=== PATIENT | male | born 1960 | race Caucasian/White ===

== ENCOUNTER 2023-01-12 03:07 | Emergency (ER) | payer OTHER ==
--- OUTSIDE RECORDS SUMMARY | 2023-01-12 03:20 | XMS REPORT | Continuity of Care Document ---
:1960 Author Organization [facility] t Address [address] [facility] [address] [place] [id number] Care Team Providers Name Role Phone Osmany Alfredo MD Primary Care Physician Osmany Alfredo Attending Clinician Unavailable CHERI SIMMS Attending Clinician Unavailable CHERI SIMMS Attending Clinician Unavailable [facility]ending Clinician Unavailable Osmany Alfredo MD Attending Clinician OSMANY ALFREDO Attending Clinician Unavailable Janie Schofield Attending Clinician Doctor Unassigned, [place] Attending Clinician Unavailable Nurse, Adc Surgery Gu Attending Clinician Unavailable Cheko Humphries MD Attending Clinician CHEKO HUMPHRIES Attending Clinician Unavailable PENNY SUE Attending Clinician Unavailable Penny Sue DO Attending Clinician Lab, Ang - Db Attending Clinician Unavailable DULCE FONTANA Attending Clinician Unavailable Dulce Fontana MD Attending Clinician Jenny Mijares Attending Clinician SERVANDO LANDRY Attending Clinician Unavailable Servando Landry MD Attending Clinician DANNY BROCK Attending Clinician Unavailable Danny Brock MD Attending Clinician Joe BEAN Attending Clinician Unavailable Joe Cai Attending Clinician JANIE PADRON Attending Clinician Unavailable Rm, Adc Surg Spec Procedure Attending Clinician Unavailable 2, Adc Lab Attending Clinician Unavailable MIN GALICIA Attending Clinician Unavailable Min Galicia MD Attending Clinician ARISTIDES LUX Attending Clinician Unavailable Maci CYBER INCIDENT ANALYST, Airstides B Attending Clinician SUKI NOYOLA Attending Clinician Unavailable Anearjun KEYES Suki Attending Clinician LEIF MENDENHALL Attending Clinician Unavailable Omid KEYES, Leif Attending Clinician Vianney Andersen MD Attending Clinician Zahida Naik MD Attending Clinician ZAHIDA NAIK Attending Clinician Unavailable VIANNEY ANDERSEN Attending Clinician Unavailable JENNY HORTON Attending Clinician Unavailable Hieu Patton MD Attending Clinician Caroline De La Paz Attending Clinician HIEU PATTON Attending Clinician Unavailable Pob, Adc Lab Main Attending Clinician Unavailable GLORY TIRADO Attending Clinician Unavailable CLEMENT RIDER Attending Clinician Unavailable SUE JERNIGAN Attending Clinician Unavailable CAROLINE BENAVIDEZ Attending Clinician Unavailable PENNY SUE Admitting Clinician Unavailable MIN GALICIA Admitting Clinician Unavailable ZAHIDA NAIK Admitting Clinician Unavailable Payers Payer Name Policy Type Policy Number Effective Date Expiration Date S ource Problems Condition Condition Condition Status Onset Resolution Last Treating Co mments Source Name Details Category Date Date Treatment Clinician Date Urinary Urinary Disease Active Univers obstructio obstructio 4-26 it y of n n 00:00: [place] 00 [facility] Branch Vitamin D Vitamin D Disease Active Uni vers deficiency deficiency 3-10 it y of 00:00: [place] 00 Medical Branch Type 2 Type 2 Disease Active Univers diabetes diabetes 3-02 ity of mellitus mellitus 00:00: [place] with with 00 Medical hyperglyce hyperglyce Br anch hank, with hank, with long-term long-term current current use of use of insulin insulin Essential Essential Disease Active Uni vers hypertensi hypertensi 07-16 it y of on on 00:00: [place] 00 Medical Branch Mixed Mixed Disease Active Univers hyperlipid hyperlipid 07-16 it y of emia emia 00:00: [place] Medical Branch 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, tophus, 00:00: [place] unspecifie unspecifie 00 Me dical d cause, d cause, Branch unspecifie unspecifie d site d site Morbid Morbid Disease Active Univers obesity obesity 07-16 ity of with BMI with BMI 00:00: [place] of of 00 Medical 40.0-44.9, 40.0-44.9, Br anch adult adult Allergies, Adverse Reactions, Alerts Allergy Allergy Status Severity Reaction(s) Onset Inactive Treating Comm ents Source Name Type Date Date Clinician NO KNOWN Drug Active Univers ALLERGIE Class ity of S [facility] Social History Social Habit Start Date Stop Date Quantity Comments Source History of tobacco Passive smoker Un iversity of use [facility] Gender identity Universit y of [facility] Sexual orientation Univer sity of [facility] Alcohol intake 2022-11-26 2022-11-26 Ex-drinker University of 00:00:00 00:00:00 (finding) [facility] History of Social 2022-11-18 2022-11-18 Univers ity of function 00:00:00 00:00:00 [facility] Exposure to 2022-09-25 2022-10-05 Not sure University of SARS-CoV-2 (event) 00:00:00 13:09:00 [facility] Tobacco use and 2022-01-14 2022-01-14 Smokeless Universit y of exposure 00:00:00 00:00:00 tobacco non-user [place] Me dical Branch History SDOH 2020-07-16 2020-07-16 99 University o f Alcohol Frequency 00:00:00 00:00:00 [place] M edical Branch History SDOH 2020-07-16 2020-07-16 99 University o f Alcohol Std Drinks 00:00:00 00:00:00 [place] [facility] History SDOH 2020-07-16 2020-07-16 99 University o f Alcohol Binge 00:00:00 00:00:00 [facility] Alcohol Comment 2020-07-16 2020-07-16 over 30 years Univer sity of 00:00:00 00:00:00 ago [facility] Sex Ass[birth year] At [birth year] Universit y of 00:00:00 00:00:00 [facility] Smoking Status Start Date Stop Date Source Never smoked tobacco [facility] Medications Ordered Filled Start Stop Current Ordering Indication Dosage Frequency Signature Comments Components Source Medication Medication Date Date Medication? Clinician (SIG) Name Name LARA 1 Yes [id number] DIAL AND Univers mg/dose (01-11 INJECT ity of mg/3 mL) 00:00: UNDER THE [place] PnIj 00 SKIN 1 MG Medical WEEKLY Branch lisinopriL Yes [id number] 40mg Take 1 U nivers 40 mg 7-13 tablet by ity of tablet 00:00: mouth in [place] 00 the Medical morning. Branch ergocalcife Yes [id number] TAKE ONE Univers rol, 7-13 CAPSULE BY ity of vitamin d2, 00:00: MOUTH [place] 1,250 mcg 00 WEEKLY Medical (50,000 Branch unit) capsule lisinopriL 2022-0 Yes [id number] 40mg Take 1 U nivers 40 mg 7-13 tablet by ity of tablet 00:00: mouth in [place] 00 the Medical morning. Branch ergocalcife Yes [id number] TAKE ONE Univers rol, 7-13 CAPSULE BY ity of vitamin d2, 00:00: MOUTH [place] 1,250 mcg 00 WEEKLY Medical (50,000 Branch unit) capsule lisinopriL 2022-0 Yes [id number] 40mg Take 1 U nivers 40 mg 7-13 tablet by ity of tablet 00:00: mouth in [place] 00 the Medical morning. Branch ergocalcife Yes [id number] TAKE ONE Univers rol, 7-13 CAPSULE BY ity of vitamin d2, 00:00: MOUTH [place] 1,250 mcg 00 WEEKLY Medical (50,000 Branch unit) capsule lisinopriL 2022-0 Yes [id number] 40mg Take 1 U nivers 40 mg 7-13 tablet by ity of tablet 00:00: mouth in [place] 00 the Medical morning. Branch ergocalcife 0 Yes [id number] TAKE ONE Univers rol, 7-13 CAPSULE BY ity of vitamin d2, 00:00: MOUTH [place] 1,250 mcg 00 WEEKLY Medical (50,000 Branch unit) capsule lisinopriL 2022-0 Yes [id number] 40mg Take 1 U nivers 40 mg 7-13 tablet by ity of tablet 00:00: mouth in [place] 00 the Medical morning. Branch ergocalcife 2022-0 Yes [id number] TAKE ONE Univers rol, 7-13 CAPSULE BY ity of vitamin d2, 00:00: MOUTH [place] 1,250 mcg 00 WEEKLY Medical (50,000 Branch unit) capsule fenofibrate 2022-0 Yes [id number] 145mg Take 1 Univers 145 mg 7-05 tablet by ity of tablet 00:00: mouth in [place] 00 the Medical morning. Branch semaglutide 2022-0 Yes [id number] 1mg inject 1 Univers (OZEMPIC) 1 7-05 mg under ity of mg/dose (4 00:00: the skin [place] mg/3 mL) 00 weekly. Medical PnIj Branch fenofibrate 2022-0 Yes [id number] 145mg Take 1 Univers 145 mg 7-05 tablet by ity of tablet 00:00: mouth in [place] 00 the Medical morning. Branch semaglutide 2022-0 Yes [id number] 1mg inject 1 Univers (OZEMPIC) 1 7-05 mg under ity of mg/dose (4 00:00: the skin [place] mg/3 mL) 00 weekly. Medical PnIj Branch fenofibrate 2022-0 Yes [id number] 145mg Take 1 Univers 145 mg 7-05 tablet by ity of tablet 00:00: mouth in [place] 00 the Medical morning. Branch semaglutide 2022-0 Yes [id number] 1mg inject 1 Univers (OZEMPIC) 1 7-05 mg under ity of mg/dose (4 00:00: the skin [place] mg/3 mL) 00 weekly. Medical PnIj Branch fenofibrate 2022-0 Yes [id number] 145mg Take 1 Univers 145 mg 7-05 tablet by ity of tablet 00:00: mouth in [place] 00 the Medical morning. Branch semaglutide 3-0 Yes [id number] 1mg inject 1 Univers (OZEMPIC) 1 7-05 mg under ity of mg/dose (4 00:00: the skin [place] mg/3 mL) 00 weekly. Medical PnIj Branch fenofibrate 2022-0 Yes [id number] 145mg Take 1 Univers 145 mg 7-05 tablet by ity of tablet 00:00: mouth in [place] 00 the Medical morning. [place] semaglutide 2022-0 Yes [id number] 1mg inject 1 Univers (OZEMPIC) 1 7-05 mg under ity of mg/dose (4 00:00: the skin [place] mg/3 mL) 00 weekly. [facility] fenofibrate 2022-0 Yes [id number] 145mg Take 1 Univers 145 mg 7-05 tablet by ity of tablet 00:00: mouth in [place] 00 the Medical morning. [place] semaglutide 2022-0 Yes [id number] 1mg inject 1 Univers (OZEMPIC) 1 7-05 mg under ity of mg/dose (4 00:00: the skin [place] mg/3 mL) 00 weekly. [facility] fenofibrate 2022-0 Yes [id number] 145mg Take 1 Univers 145 mg 7-05 tablet by ity of tablet 00:00: mouth in [place] 00 the Medical morning. [place] semaglutide 0 2022- No [id number] 1mg inject 1 Univers (OZEMPIC) 1 7-05 08-28 mg under ity of mg/dose (4 00:00: 00:00 [place] mg/3 mL) 00 :00 weekly. [facility] ergocalcife 2022-0 Yes [id number] TAKE ONE Univers rol, 6-29 CAPSULE BY ity of vitamin d2, 00:00: MOUTH [place] 1,250 mcg 00 WEEKLY Medical (50,000 Branch unit) capsule ergocalcife 2022-0 2022- No [id number] TAKE ONE Univers rol, 6- 07-13 CAPSULE BY ity of vitamin d2, 00:00: 00:00 [place]TH [place] 1,250 mcg 00 :00 WEEKLY Medical (50,000 Branch unit) capsule ergocalcife 2022-0 2022- No [id number] TAKE ONE Univers rol, 6-29 07-13 CAPSULE BY ity of vitamin d2, 00:00: 00:00 [place]TH [place] 1,250 mcg 00 :00 WEEKLY Medical (50,000 Branch unit) capsule ergocalcife 2022-0 2022- No [id number] TAKE ONE Univers rol, 6-29 07-13 CAPSULE BY ity of vitamin d2, 00:00: 00:00 [place]TH [place] 1,250 mcg 00 :00 WEEKLY Medical (50,000 Branch unit) capsule ergocalcife 2022- No [id number] TAKE ONE [facility], 11-12 CAPSULE BY ity of vitamin d2, 00:00: 00:00 [place] 1,250 mcg 00 :00 WEEKLY Medical (50,000 Branch unit) capsule Insulin Yes [id number] 45U inject 45 U nivers Glargine 6-12 Units ity of (BASAGLAR 00:00: under the [place] KWIKPEN 00 skin in Medical U-100 the Branch INSULIN) morning. 100 unit/mL (3 mL) injection Insulin Yes [id number] 45U inject 45 U nivers Glargine 6-12 Units ity of (BASAGLAR 00:00: under the [place] KWIKPEN 00 skin in Medical U-100 the Branch INSULIN) morning. 100 unit/mL (3 mL) injection Insulin Yes [id number] 45U inject 45 U nivers Glargine 6-12 Units ity of (BASAGLAR 00:00: under the [place] KWIKPEN 00 skin in Medical U-100 the Branch INSULIN) morning. 100 unit/mL (3 mL) injection Insulin Yes [id number] 45U inject 45 U nivers Glargine 6-12 Units ity of (BASAGLAR 00:00: under the [place] KWIKPEN 00 skin in Medical U-100 the Branch INSULIN) morning. 100 unit/mL (3 mL) injection Insulin Yes [id number] 45U inject 45 U nivers Glargine 6-12 Units ity of (BASAGLAR 00:00: under the [place]WIKP[place] 00 skin in Medical U-100 the Branch INSULIN) morning. 100 unit/mL (3 mL) injection Insulin Yes [id number] 45U inject 45 U nivers Glargine 6-12 Units ity of (BASAGLAR 00:00: under the [place] KWIKPEN 00 skin in Medical U-100 the Branch INSULIN) morning. 100 unit/mL (3 mL) injection Insulin Yes [id number] 45U inject 45 U nivers Glargine 6-12 Units ity of (BASAGLAR 00:00: under the [place] KWIKPEN 00 skin in Medical U-100 the Branch INSULIN) morning. 100 unit/mL (3 mL) injection Insulin Yes [id number] 45U inject 45 U nivers Glargine 6-12 Units ity of (BASAGLAR 00:00: under the [place] KWIKPEN 00 skin in Medical U-100 the Branch INSULIN) morning. 100 unit/mL (3 mL) injection Insulin Yes [id number] 45U inject 45 U nivers Glargine 6-12 Units ity of (BASAGLAR 00:00: under the [place] KWIKPEN 00 skin in Medical U-100 the Branch INSULIN) morning. 100 unit/mL (3 mL) injection Insulin Yes [id number] 45U inject 45 U nivers Glargine 6-12 Units ity of (BASAGLAR 00:00: under the [place] KWIKPEN 00 skin in Medical U-100 the Branch INSULIN) morning. 100 unit/mL (3 mL) injection Insulin Yes [id number] 45U inject 45 U nivers Glargine 6-07 Units ity of (BASAGLAR 00:00: under the [place] KWIKPEN 00 skin in Medical U-100 the Branch INSULIN) morning. 100 unit/mL (3 mL) injection Insulin Yes [id number] 45U inject 45 U nivers Glargine 6-07 Units ity of (BASAGLAR 00:00: under the [place] KWIKPEN 00 skin in Medical U-100 the Branch INSULIN) morning. 100 unit/mL (3 mL) injection Insulin 2022- No [id number] 45U inject 45 Univers Glargine 6-07 06-12 Units ity of (BASAGLAR 00:00: 00:00 [place] KWIKPEN 00 :00 skin in Medical U-100 the Branch INSULIN) morning. 100 unit/mL (3 mL) injection Vitamin Yes 50ug Take 0.5 Univer s B-12 100 5-22 tablets by ity o f mcg tablet 13:25: mouth in [place] 48 the Medical morning. Branch Vitamin Yes 50ug Take 0.5 Univer s B-12 100 5-22 tablets by ity o f mcg tablet 13:25: mouth in [place] 48 the Medical morning. Branch Vitamin 2023-0 Yes 50ug Take 0.5 Univer s B-12 100 5-22 tablets by ity o f mcg tablet 13:25: mouth in [place] 48 the Medical morning. Branch Vitamin 2023-0 Yes 50ug Take 0.5 Univer s B-12 100 5-22 tablets by ity o f mcg tablet 13:25: mouth in [place] 48 the Medical morning. Branch Vitamin 2023-0 Yes 50ug Take 0.5 Univer s B-12 100 5-22 tablets by ity o f mcg tablet 13:25: mouth in [place] 48 the Medical morning. Branch Vitamin 2023-0 Yes 50ug Take 0.5 Univer s B-12 100 5-22 tablets by ity o f mcg tablet 13:25: mouth in [place] 48 the Medical morning. Branch Vitamin 2023-0 Yes 50ug Take 0.5 Univer s B-12 100 5-22 tablets by ity o f mcg tablet 13:25: mouth in [place] 48 the Medical morning. Branch Vitamin 2023-0 Yes 50ug Take 0.5 Univer s B-12 100 5-22 tablets by ity o f mcg tablet 13:25: mouth in [place] 48 the Medical morning. Branch Vitamin 2023-0 Yes 50ug Take 0.5 Univer s B-12 100 5-22 tablets by ity o f mcg tablet 13:25: mouth in [place] 48 the Medical morning. Branch Vitamin 2023-0 Yes 50ug Take 0.5 Univer s B-12 100 5-22 tablets by ity o f mcg tablet 13:25: mouth in [place] 48 the Medical morning. Branch Vitamin 2023-0 Yes 50ug Take 0.5 Univer s B-12 100 5-22 tablets by ity o f mcg tablet 13:25: mouth in [place] 48 the Medical morning. Branch Vitamin 2023-0 Yes 50ug Take 0.5 Univer s B-12 100 5-22 tablets by ity o f mcg tablet 13:25: mouth in [place] 48 the Medical morning. Branch Vitamin 2023-0 Yes 50ug Take 0.5 Univer s B-12 100 5-22 tablets by ity o f mcg tablet 13:25: mouth in [place] 48 the Medical morning. Branch Vitamin 3-0 Yes 50ug Take 0.5 Univer s B-12 100 5-22 tablets by ity o f mcg tablet 13:25: mouth in [place] 48 the Medical morning. Branch Nitrofurant 3-0 Yes Cam s oin&Nit. 5-16 ity of Macrocryst 00:00: [place] 100 mg 00 Medical capsule Branch Nitrofurant 2023-0 Yes Cam s oin&Nit. 5-16 ity of Macrocryst 00:00: [place] 100 mg 00 Medical capsule Branch Nitrofurant 2023-0 Yes Univsheri s oin&Nit. 5-16 ity of Macrocryst 00:00: [place] 100 mg 00 Medical capsule Branch Nitrofurant 3-0 Yes Cam s oin&Nit. 5-16 ity of Macrocryst 00:00: [place] 100 mg 00 Medical capsule Branch Nitrofurant 2023-0 Yes Cam herrera oin&Nit. 5-16 ity of Macrocryst 00:00: [place] 100 mg 00 Medical capsule Branch Nitrofurant 2023-0 Yes Cam s oin&Nit. 5-16 ity of Macrocryst 00:00: [place] 100 mg 00 Medical capsule Branch Nitrofurant 2023-0 Yes Cam s oin&Nit. 5-16 ity of Macrocryst 00:00: [place] 100 mg 00 Medical capsule Branch Nitrofurant 2023-0 Yes Cam herrera oin&Nit. 5-16 ity of Macrocryst 00:00: [place] 100 mg 00 Medical capsule Branch Nitrofurant 2023-0 Yes Cam herrera oin&Nit. 5-16 ity of Macrocryst 00:00: [place] 100 mg 00 Medical capsule Branch Nitrofurant 2023-0 Yes Cam s oin&Nit. 5-16 ity of Macrocryst 00:00: [place] 100 mg 00 Medical capsule Branch Nitrofurant 2023-0 Yes Cam s oin&Nit. 5-16 ity of Macrocryst 00:00: [place] 100 mg 00 Medical capsule Branch Nitrofurant 2023-0 Yes Cam s oin&Nit. 5-16 ity of Macrocryst 00:00: [place] 100 mg 00 Medical capsule Branch Nitrofurant 2023-0 Yes Univer s oin&Nit. 5-16 ity of Macrocryst 00:00: [place] 100 mg 00 Medical capsule Branch Nitrofurant 2022-0 Yes Cam s oin&Nit. 5-16 ity of Macrocryst 00:00: [place] 100 mg 00 Medical capsule Branch ALLOPURINOL 3-0 Yes [id number] TAKE TWO Univers 100 mg 5-04 TABLETS BY ity of tablet 00:00: MOUTH 00 EVERY Medical MORNING Branch ALLOPURINOL 3-0 Yes [id number] TAKE TWO Univers 100 mg 5-04 TABLETS BY ity of tablet 00:00: MOUTH 00 EVERY Medical MORNING Branch ALLOPURINOL 3-0 Yes [id number] TAKE TWO Univers 100 mg 5-04 TABLETS BY ity of tablet 00:00: MOUTH 00 EVERY Medical MORNING Branch ALLOPURINOL 3-0 Yes [id number] TAKE TWO Univers 100 mg 5-04 TABLETS BY ity of tablet 00:00: MOUTH 00 EVERY Medical MORNING Branch ALLOPURINOL 3-0 Yes [id number] TAKE TWO Univers 100 mg 5-04 TABLETS BY ity of tablet 00:00: MOUTH 00 EVERY Medical MORNING Branch ALLOPURINOL 3-0 Yes [id number] TAKE TWO Univers 100 mg 5-04 TABLETS BY ity of tablet 00:00: MOUTH 00 EVERY Medical MORNING Branch ALLOPURINOL 3-0 Yes [id number] TAKE TWO Univers 100 mg 5-04 TABLETS BY ity of tablet 00:00: MOUTH 00 EVERY Medical MORNING Branch ALLOPURINOL 3-0 Yes [id number] TAKE TWO Univers 100 mg 5-04 TABLETS BY ity of tablet 00:00: MOUTH 00 EVERY Medical MORNING Branch ALLOPURINOL 3-0 Yes [id number] TAKE TWO Univers 100 mg 5-04 TABLETS BY ity of tablet 00:00: MOUTH [place] 00 EVERY Medical MORNING Branch ALLOPURINOL 3-0 Yes [id number] TAKE TWO Univers 100 mg 5-04 TABLETS BY ity of tablet 00:00: MOUTH [place] 00 EVERY Medical MORNING Branch ALLOPURINOL 3-0 Yes [id number] TAKE TWO Univers 100 mg 5-04 TABLETS BY ity of tablet 00:00: MOUTH [place] 00 EVERY Medical MORNING Branch ALLOPURINOL 3-0 Yes [id number] TAKE TWO Univers 100 mg 5-04 TABLETS BY ity of tablet 00:00: MOUTH [place] 00 EVERY Medical MORNING Branch ALLOPURINOL 2023-0 Yes [id number] TAKE TWO Univers 100 mg 5-04 TABLETS BY ity of tablet 00:00: MOUTH [place] 00 EVERY Medical MORNING Branch ALLOPURINOL 2023-0 Yes [id number] TAKE TWO Univers 100 mg 5-04 TABLETS BY ity of tablet 00:00: MOUTH [place] 00 EVERY Medical MORNING Branch ALLOPURINOL 2023-0 Yes [id number] TAKE TWO Univers 100 mg 5-04 TABLETS BY ity of tablet 00:00: MOUTH [place] 00 EVERY Medical MORNING Branch ALLOPURINOL 2023-0 Yes [id number] TAKE TWO Univers 100 mg 5-04 TABLETS BY ity of tablet 00:00: MOUTH [place] 00 EVERY Medical MORNING Branch nebivoloL 3-0 Yes [id number] 10mg Take 1 Un vaughn 10 mg 4-26 tablet by ity of tablet 00:00: mouth in [place] the Medical morning. Branch metformin 3-0 Yes [id number] 1000mg Take 2 Univers ER 500 mg 4-26 tablets by ity of 24 hr 00:00: mouth in [place] tablet 00 the Medical morning Branch and 2 tablets in the evening. lisinopriL 2023-0 Yes [id number] 40mg Take 1 U nivers 40 mg 4-26 tablet by ity of tablet 00:00: mouth in [place] the Medical morning. Branch allopurinoL 3-0 Yes [id number] 200mg Take 2 Univers 100 mg 4-26 tablets by ity of tablet 00:00: mouth in [place] the Medical morning. Branch nebivoloL 2023-0 Yes [id number] 10mg Take 1 Un vaughn 10 mg 4-26 tablet by ity of tablet 00:00: mouth in [place] 00 the Medical morning. Branch metformin 2023-0 Yes [id number] 1000mg Take 2 Univers ER 500 mg 4-26 tablets by ity of 24 hr 00:00: mouth in [place] tablet 00 the Medical morning Branch and 2 tablets in the evening. lisinopriL 2023-0 Yes [id number] 40mg Take 1 U nivers 40 mg 4-26 tablet by ity of tablet 00:00: mouth in [place] 00 the Medical morning. Branch allopurinoL 2023-0 Yes [id number] 200mg Take 2 Univers 100 mg 4-26 tablets by ity of tablet 00:00: mouth in [place] 00 the Medical morning. Branch nebivoloL 3-0 Yes [id number] 10mg Take 1 Un [place] 10 mg 4-26 tablet by ity of tablet 00:00: mouth in [place] 00 the Medical morning. Branch metformin 3-0 Yes [id number] 1000mg Take 2 Univers ER 500 mg 4-26 tablets by ity of 24 hr 00:00: mouth in [place] tablet 00 the Medical morning Branch and 2 tablets in the evening. lisinopriL 2023-0 Yes [id number] 40mg Take 1 U nivers 40 mg 4-26 tablet by ity of tablet 00:00: mouth in [place] 00 the Medical morning. Branch allopurinoL 3-0 Yes [id number] 200mg Take 2 Univers 100 mg 4-26 tablets by ity of tablet 00:00: mouth in [place] 00 the Medical morning. Branch nebivoloL 3-0 Yes [id number] 10mg Take 1 Un vaughn 10 mg 4-26 tablet by ity of tablet 00:00: mouth in [place] the Medical morning. Branch metformin 3-0 Yes [id number] 1000mg Take 2 Univers ER 500 mg 4-26 tablets by ity of 24 hr 00:00: mouth in [place] tablet 00 the Medical morning Branch and 2 tablets in the evening. lisinopriL 3-0 Yes [id number] 40mg Take 1 U nivers 40 mg 4-26 tablet by ity of tablet 00:00: mouth in [place] the Medical morning. Branch allopurinoL 3-0 Yes [id number] 200mg Take 2 Univers 100 mg 4-26 tablets by ity of tablet 00:00: mouth in [place] the Medical morning. Branch nebivoloL 3-0 Yes [id number] 10mg Take 1 Un [place]augh[place] 10 mg 4-26 tablet by ity of tablet 00:00: mouth in [place] 00 the Medical morning. Branch metformin 3-0 Yes [id number] 1000mg Take 2 Univers ER 500 mg 4-26 tablets by ity of 24 hr 00:00: mouth in [place] tablet 00 the Medical morning Branch and 2 tablets in the evening. lisinopriL 2023-0 Yes [id number] 40mg Take 1 U nivers 40 mg 4-26 tablet by ity of tablet 00:00: mouth in [place] 00 the Medical morning. Branch allopurinoL 2023-0 Yes [id number] 200mg Take 2 Univers 100 mg 4-26 tablets by ity of tablet 00:00: mouth in [place] the Medical morning. Branch nebivoloL 2022-0 Yes [id number] 10mg Take 1 Un [place] 10 mg 4-26 tablet by ity of tablet 00:00: mouth in [place] the Medical morning. Branch metformin 2022-0 Yes [id number] 1000mg Take 2 Univers ER 500 mg 4-26 tablets by ity of 24 hr 00:00: mouth in [place] tablet 00 the Medical morning Branch and 2 tablets in the evening. lisinopriL 2022-0 Yes [id number] 40mg Take 1 U nivers 40 mg 4-26 tablet by ity of tablet 00:00: mouth in [place] the Medical morning. Branch nebivoloL 2022-0 Yes [id number] 10mg Take 1 Un [place] 10 mg 4-26 tablet by ity of tablet 00:00: mouth in [place] the Medical morning. Branch metformin 2022-0 Yes [id number] 1000mg Take 2 Univers ER 500 mg 4-26 tablets by ity of 24 hr 00:00: mouth in [place] tablet 00 the Medical morning Branch and 2 tablets in the evening. lisinopriL 2022-0 Yes [id number] 40mg Take 1 U nivers 40 mg 4-26 tablet by ity of tablet 00:00: mouth in [place] the Medical morning. Branch nebivoloL 2022-0 Yes [id number] 10mg Take 1 Un [place] 10 mg 4-26 tablet by ity of tablet 00:00: mouth in [place] the Medical morning. Branch metformin 2022-0 Yes [id number] 1000mg Take 2 Univers ER 500 mg 4-26 tablets by ity of 24 hr 00:00: mouth in [place] tablet 00 the Medical morning Branch and 2 tablets in the evening. lisinopriL 2022-0 Yes [id number] 40mg Take 1 U nivers 40 mg 4-26 tablet by ity of tablet 00:00: mouth in [place] the Medical morning. Branch nebivoloL 2022-0 Yes [id number] 10mg Take 1 Un [place] 10 mg 4-26 tablet by ity of tablet 00:00: mouth in [place] 00 the Medical morning. Branch metformin 2022-0 Yes [id number] 1000mg Take 2 Univers ER 500 mg 4-26 tablets by ity of 24 hr 00:00: mouth in [place] tablet 00 the Medical morning Branch and 2 tablets in the evening. lisinopriL 2023-0 Yes [id number] 40mg Take 1 U nivers 40 mg 4-26 tablet by ity of tablet 00:00: mouth in [place] 00 the Medical morning. Branch nebivoloL 3-0 Yes [id number] 10mg Take 1 Un [place] 10 mg 4-26 tablet by ity of tablet 00:00: mouth in [place] 00 the Medical morning. Branch metformin 3-0 Yes [id number] 1000mg Take 2 Univers ER 500 mg 4-26 tablets by ity of 24 hr 00:00: mouth in [place] tablet 00 the Medical morning Branch and 2 tablets in the evening. lisinopriL 2023-0 Yes [id number] 40mg Take 1 U nivers 40 mg 4-26 tablet by ity of tablet 00:00: mouth in [place] 00 the Medical morning. Branch nebivoloL 3-0 Yes [id number] 10mg Take 1 Un [place] 10 mg 4-26 tablet by ity of tablet 00:00: mouth in [place] 00 the Medical morning. Branch metformin 3-0 Yes [id number] 1000mg Take 2 [facility] 500 mg 4-26 tablets by ity of 24 hr 00:00: mouth in [place] tablet 00 the Medical morning Branch and 2 tablets in the evening. lisinopriL 2023-0 Yes [id number] 40mg Take 1 [facility] nivers 40 mg 4-26 tablet by ity of tablet 00:00: mouth in [place] 00 the Medical morning. Branch nebivoloL 3-0 Yes [id number] 10mg Take 1 [facility] 10 mg 4-26 tablet by ity of tablet 00:00: mouth in [place] 00 the Medical morning. Branch metformin 3-0 Yes [id number] 1000mg Take 2 [facility] ER 500 mg 4-26 tablets by ity of 24 hr 00:00: mouth in [place] tablet 00 the Medical morning Branch and 2 tablets in the evening. lisinopriL 2023-0 Yes [id number] 40mg Take 1 [facility] nivers 40 mg 4-26 tablet by ity of tablet 00:00: mouth in [place] 00 the Medical morning. Branch nebivoloL 2023-0 Yes [id number] 10mg Take 1 [facility] [place] 10 mg 4-26 tablet by ity of tablet 00:00: mouth in [place] 00 the Medical morning. Branch metformin 3-0 Yes [id number] 1000mg Take 2 [facility] ER 500 mg 4-26 tablets by ity of 24 hr 00:00: mouth in [place] tablet 00 the Medical morning Branch and 2 tablets in the evening. lisinopriL 3-0 Yes [id number] 40mg Take 1 [facility] nivers 40 mg 4-26 tablet by ity of tablet 00:00: mouth in [place] 00 the Medical morning. Branch nebivoloL 2022-0 Yes [id number] 10mg Take 1 [facility] [place] 10 mg 4-26 tablet by ity of tablet 00:00: mouth in [place] 00 the Medical morning. Branch metformin 2022-0 Yes [id number] 1000mg Take 2 [facility] ER 500 mg 4-26 tablets by ity of 24 hr 00:00: mouth in [place] tablet 00 the Medical morning Branch and 2 tablets in the evening. lisinopriL 3-0 Yes [id number] 40mg Take 1 [facility] nivers 40 mg 4-26 tablet by ity of tablet 00:00: mouth in [place] 00 the Medical morning. Branch nebivoloL 2022-0 Yes [id number] 10mg Take 1 [facility] [place] 10 mg 4-26 tablet by ity of tablet 00:00: mouth in [place] 00 the Medical morning. Branch metformin 2022-0 Yes [id number] 1000mg Take 2 [facility] ER 500 mg 4-26 tablets by ity of 24 hr 00:00: mouth in [place] tablet 00 the Medical morning Branch and 2 tablets in the evening. nebivoloL 2022-0 Yes [id number] 10mg Take 1 [facility] 10 mg 4-26 tablet by ity of tablet 00:00: mouth in [place] 00 the Medical morning. Branch metformin 3-0 Yes [id number] 1000mg Take 2 [facility] ER 500 mg 4-26 tablets by ity of 24 hr 00:00: mouth in [place] tablet 00 the Medical morning Branch and 2 tablets in the evening. nebivoloL 3-0 Yes [id number] 10mg Take 1 [facility] 10 mg 4-26 tablet by ity of tablet 00:00: mouth in [place] 00 the Medical morning. Branch metformin 3-0 Yes [id number] 1000mg Take 2 [facility] ER 500 mg 4-26 tablets by ity of 24 hr 00:00: mouth in [place] tablet 00 the Medical morning Branch and 2 tablets in the evening. nebivoloL 3-0 Yes [id number] 10mg Take 1 [facility] 10 mg 4-26 tablet by ity of tablet 00:00: mouth in [place] 00 the Medical morning. Branch metformin 3-0 Yes [id number] 1000mg Take 2 [facility] ER 500 mg 4-26 tablets by ity of 24 hr 00:00: mouth in [place] tablet 00 the Medical morning Branch and 2 tablets in the evening. nebivoloL 3-0 Yes [id number] 10mg Take 1 [facility] 10 mg 4-26 tablet by ity of tablet 00:00: mouth in [place] 00 the Medical morning. Branch metformin 3-0 Yes [id number] 1000mg Take 2 [facility] ER 500 mg 4-26 tablets by ity of 24 hr 00:00: mouth in [place] tablet 00 the Medical morning Branch and 2 tablets in the evening. nebivoloL 3-0 Yes [id number] 10mg Take 1 [facility] 10 mg 4-26 tablet by ity of tablet 00:00: mouth in [place] 00 the Medical morning. Branch metformin 3-0 Yes [id number] 1000mg Take 2 [facility] ER 500 mg 4-26 tablets by ity of 24 hr 00:00: mouth in [place] tablet 00 the Medical morning Branch and 2 tablets in the evening. nebivoloL 3-0 Yes [id number] 10mg Take 1 [facility] avug[facility] 10 mg 4-26 tablet by ity of tablet 00:00: mouth in [place] 00 the Medical morning. Branch metformin 3-0 Yes [id number] 1000mg Take 2 [facility] ER 500 mg 4-26 tablets by ity of 24 hr 00:00: mouth in [place] tablet 00 the Medical morning Branch and 2 tablets in the evening. lisinopriL 2023-0 2023- No [id number] 40mg Take 1 [facility] 40 mg 4-26 07-13 tablet by ity of tablet 00:00: 00:00 mouth in [place] 00 :00 the Medical morning. Branch lisinopriL 2023-0 2023- No [id number] 40mg Take 1 [facility] 40 mg 4-26 07-13 tablet by ity of tablet 00:00: 00:00 mouth in [place] 00 :00 the Medical morning. Branch lisinopriL 2023-0 2023- No [id number] 40mg Take 1 [facility] 40 mg 4-26 07-13 tablet by ity of tablet 00:00: 00:00 mouth in [place] 00 :00 the Medical morning. Branch lisinopriL 2022- No [id number] 40mg Take 1 [facility] 40 mg 4-26 07-13 tablet by ity of tablet 00:00: 00:00 mouth in [place] 00 :00 the Medical morning. Branch allopurinoL 2022- No [id number] 200mg Take 2 [facility] 100 mg 4-26 05-04 tablets by ity of tablet 00:00: 00:00 mouth in [place] 00 :00 the Medical morning. Branch BASAGLAR 2022-0 Yes 45U inject 45 Univ ers KWIKPEN 4-15 Units ity of U-100 00:00: under the [place] INSULIN 100 00 skin in Medic al unit/mL (3 the Branch mL) morning. injection BASAGLAR 0 Yes 45U inject 45 Univ ers KWIKPEN 4-15 Units ity of U-100 00:00: under the [place] INSULIN 100 00 skin in Medic al unit/mL (3 the Branch mL) morning. injection BASAGLAR 2022- No 45U inject 45 Uni vers KWIKPEN 4-15 06-07 Units ity of U-100 00:00: 00:00 under the [place] INSULIN 100 00 :00 skin in Medic al unit/mL (3 the Branch mL) morning. injection LISINOPRIL 2022-0 Yes [id number] TAKE ONE [facility] 40 mg 4-12 TABLET BY ity of tablet 00:00: MOUTH [place] 00 DAILY Medical Branch LISINOPRIL 2022-0 Yes [id number] TAKE ONE [facility] 40 mg 4-12 TABLET BY ity of tablet 00:00: [facility] 00 DAILY Medical Branch LISINOPRIL 2022-0 Yes [id number] TAKE ONE [facility] 40 mg 4-12 TABLET BY ity of tablet 00:00: MOUTH [place] 00 DAILY Medical Branch LISINOPRIL 2022-0 Yes [id number] TAKE ONE [facility] 40 mg 4-12 TABLET BY ity of tablet 00:00: MOUTH [place] 00 DAILY Medical Branch LISINOPRIL 3-0 2023- No [id number] TAKE ONE [facility] 40 mg 4-12 04-26 TABLET BY ity of tablet 00:00: 00:00 MOUTH [place] 00 :00 DAILY Medical Branch LISINOPRIL 2022-0 2022- No [id number] TAKE ONE [facility] 40 mg 4-12 04-26 TABLET BY ity of tablet 00:00: 00:00 MOUTH [place] 00 :00 DAILY Medical Branch NEBIVOLOL 2023-0 Yes [id number] TAKE ONE [facility] 10 mg 4-07 TABLET BY ity of tablet 00:00: MOUTH [place] 00 DAILY Medical Branch NEBIVOLOL 2023-0 Yes [id number] TAKE ONE [facility] 10 mg 4-07 TABLET BY ity of tablet 00:00: MOUTH [place] 00 DAILY Medical Branch NEBIVOLOL 2023-0 Yes [id number] TAKE ONE [facility] 10 mg 4-07 TABLET BY ity of tablet 00:00: MOUTH [place] 00 DAILY Medical Branch NEBIVOLOL 2023-0 Yes [id number] TAKE ONE [facility] 10 mg 4-07 TABLET BY ity of tablet 00:00: MOUTH [place] 00 DAILY Medical Branch NEBIVOLOL 2023-0 Yes [id number] TAKE ONE [facility] 10 mg 4-07 TABLET BY ity of tablet 00:00: MOUTH [place] 00 DAILY Medical Branch NEBIVOLOL 2023-0 2023- No [id number] TAKE ONE [facility] 10 mg 4-07 04-26 TABLET BY ity of tablet 00:00: 00:00 MOUTH [place] 00 :00 DAILY Medical Branch NEBIVOLOL 2023-0 2023- No [id number] TAKE ONE [facility] 10 mg 4-07 04-26 TABLET BY ity of tablet 00:00: 00:00 [facility] [place] 00 :00 DAILY Medical Branch ALLOPURINOL 2023-0 Yes [id number] TAKE TWO [facility] 100 mg 4-04 TABLETS BY ity of tablet 00:00: [facility] 00 EVERY Medical MORNING Branch ALLOPURINOL 2023-0 Yes [id number] TAKE TWO [facility] 100 mg 4-04 TABLETS BY ity of tablet 00:00: [facility] 00 EVERY Medical MORNING Branch ALLOPURINOL 2023-0 Yes [id number] TAKE TWO [facility] 100 mg 4-04 TABLETS BY ity of tablet 00:00: [facility] 00 EVERY Medical MORNING Branch ALLOPURINOL 2023-0 Yes [id number] TAKE TWO [facility] 100 mg 4-04 TABLETS BY ity of tablet 00:00: [facility] 00 EVERY Medical MORNING Branch ALLOPURINOL 2023-0 Yes [id number] TAKE TWO [facility] 100 mg 4-04 TABLETS BY ity of tablet 00:00: [facility] EVERY Medical MORNING Branch ALLOPURINOL 2023-0 Yes [id number] TAKE TWO [facility] 100 mg 4-04 TABLETS BY ity of tablet 00:00: MOUTH [place] EVERY Medical MORNING Branch ALLOPURINOL 2023-0 3- No [id number] TAKE TWO [facility] 100 mg 4-08 18-26 TABLETS BY ity of tablet 00:00: 00:00 MOUTH [place] 00 :00 EVERY Medical MORNING Branch ALLOPURINOL 2023-0 3- No [id number] TAKE TWO [facility] 100 mg 4-08 18-26 TABLETS BY ity of tablet 00:00: 00:00 MOUTH [place] 00 :00 EVERY Medical MORNING Branch fluorouraci 2023-0 Yes Univer s L 5 % cream 3-24 ity of 00:00: [place] 00 Medical Branch fluorouraci 2023-0 Yes Univer s L 5 % cream 3-24 ity of 00:00: [place] 00 Medical Branch fluorouraci 2023-0 Yes Univer s L 5 % cream 3-24 ity of 00:00: [place] 00 Medical Branch fluorouraci 2023-0 Yes Univer s L 5 % cream 3-24 ity of 00:00: [place] 00 Medical Branch fluorouraci 2023-0 Yes Univer s L 5 % cream 3-24 ity of 00:00: [place] 00 Medical Branch fluorouraci 2023-0 Yes Univer s L 5 % cream 3-24 ity of 00:00: [place] 00 Medical Branch fluorouraci 2023-0 Yes Univer s L 5 % cream 3-24 ity of 00:00: [place] 00 Medical Branch fluorouraci 2023-0 Yes Univer s L 5 % cream 3-24 ity of 00:00: [place] 00 Medical Branch fluorouraci 2023-0 Yes Univer s L 5 % cream 3-24 ity of 00:00: [place] 00 Medical Branch fluorouraci 2023-0 Yes Univer s L 5 % cream 3-24 ity of 00:00: [place] 00 Medical Branch fluorouraci 2023-0 Yes Univer s L 5 % cream 3-24 ity of 00:00: [place] 00 Medical Branch fluorouraci 2023-0 Yes Univer s L 5 % cream 3-24 ity of 00:00: [place] 00 Medical Branch fluorouraci 2023-0 Yes Univer s L 5 % cream 3-24 ity of 00:00: [place] 00 Medical Branch fluorouraci 2023-0 Yes Univer s L 5 % cream 3-24 ity of 00:00: [place] 00 Medical Branch insulin 2022- No 12U 12 Units, Univ ers regular 08-02 Slow IV ity of human 01:15: 00:38 Push, Jeb (HUMULIN R) 00 :00 ONCE, 1 Medic al injection dose, On Branch 12 Units 08/01/22 at 2014, Routine
Indicatio n for insulin: Hyperglyce hank magnesium 2022- No 2g 2 g, IV Univ ers sulfate in 08-02 Piggyback, it y of water 2 01:15: 01:39 Administer Rodrick as gram/50 mL 00 :00 over 60 Medica l (4 %) Minutes, Branch infusion 2 ONCE, 1 g dose, On 08/01/22 at 2014, Routine NaCl 0.9% 2022- No 1000mL at 999 Uni vers (NS) bolus 08-02 mL/hr, ity of infusion 00:00: 00:39 1,000 mL, Rodrick as 1,000 mL 00 :00 IV Medical Infusion, Branch ONCE, 1 dose, On 08/01/22 at 1900, HARPREET iopamidol 2022- No [id number] 89mL 89 mL, U nivers (ISOVUE 08-01 Intravenou ity o f 370-500 mL) 23:48: 00:00 s, ONCE, 1 [place] injection 00 :00 dose, On Medica l 89 mL Sat Branch 08/01/22 at 1900, Routine OZEMPIC 1 Yes Univers mg/dose (4 3-17 ity of mg/3 mL) 00:00: [place] [facility] Medical Branch OZEMPIC 1 Yes Univers mg/dose (4 3-17 ity of mg/3 mL) 00:00: [place] [facility]nI[facility] Medical Branch OZEMPIC 1 0 Yes [facility] mg/dose (4 3-17 ity [facility] mg/3 mL) [facility] 0 Yes [facility] mg/dose (4 3-17 ity of mg/3 mL) [facility] Yes [facility] mg/dose (4 3-17 ity of mg/3 mL) 00:00: [place] [facility] 00 Medical Branch OZEMPIC 1 0 Yes Univers mg/dose (4 3-17 ity of mg/3 mL) 00:00: [facility] 00 Medical Branch OZEMPIC 1 2022-0 Yes Univers mg/dose (4 3-17 ity of mg/3 mL) 00:00: [facility] 00 Medical Branch OZEMPIC 1 2022-0 2023- No [facility] mg/dose (4 3-17 07-05 ity of mg/3 mL) 00:00: 00:00 [facility] 00 :00 Medical Branch OZEMPIC 1 0 202- No Univers mg/dose (4 3-17 07-05 ity of mg/3 mL) 00:00: 00:00 [facility] 00 :00 Medical Branch NEBIVOLOL 2022-0 Yes [id number] TAKE ONE [facility] 10 mg 3-07 TABLET BY ity of tablet 00:00: [facility] 00 DAILY Medical Branch NEBIVOLOL 3-0 Yes [id number] TAKE ONE [facility] 10 mg 3-07 TABLET BY ity of tablet 00:00: [facility] 00 DAILY Medical Branch NEBIVOLOL 3-0 Yes [id number] TAKE ONE [facility] 10 mg 3-07 TABLET BY ity of tablet 00:00: [facility] 00 DAILY Medical Branch NEBIVOLOL 2023-0 Yes [id number] TAKE ONE [facility] 10 mg 3-07 TABLET BY ity of tablet 00:00: [facility] 00 DAILY Medical Branch NEBIVOLOL 2023-0 Yes [id number] TAKE ONE [facility] 10 mg 3-07 TABLET BY ity of tablet 00:00: [facility] 00 DAILY Medical Branch NEBIVOLOL 2023-0 Yes [id number] TAKE ONE [facility] 10 mg 3-07 TABLET BY ity of tablet 00:00: [facility] 00 DAILY Medical Branch NEBIVOLOL 2023-0 2023- No [id number] TAKE ONE [facility] 10 mg 3-07 04-07 TABLET BY ity of tablet 00:00: 00:00 [facility] 00 :00 DAILY Medical Branch insulin 3-0 Yes [id number] 80U inject 80 U nivers degludec 3-02 Units ity of (TRESIBA 00:00: [place]LE[place] skin in Medical U-200) 200 the Branch unit/mL (3 morning mL) InPn and 80 Units in the evening. atorvastati 2022-0 Yes [id number] 40mg Take 1 [facility] n 40 mg 3-02 tablet by ity of tablet 00:00: mouth at [place] 00 bedtime. Medical Branch amLODIPine 2022-0 Yes [id number] 10mg Take 1 U nivers 10 mg 3-02 tablet by ity of tablet 00:00: mouth in [place] 00 the Medical morning. Branch allopurinoL 2022-0 Yes [id number] 200mg Take 2 [facility] 100 mg 3-02 tablets by ity of tablet 00:00: mouth in [place] 00 the Medical morning. Branch insulin 2022-0 Yes [id number] 10U inject 10 U nivers aspart 3-02 Units ity of U-100 00:00: under the [place] (NOVOLOG 00 skin in Medical FLEXPEN the Branch U-100 morning INSULIN) and 10 100 unit/mL Units at (3 mL) noon and injection 10 Units in the evening. inject before meals. insulin 2022-0 Yes [id number] 80U inject 80 U nivers degludec 3-02 Units ity of (TRESIBA 00:00[facility] skin in Medical U-200) 200 the Branch unit/mL (3 morning mL) InPn and 80 Units in the evening. atorvastati 2022-0 Yes [id number] 40mg Take 1 [facility] n 40 mg 3-02 tablet by ity of tablet 00:00: mouth at [place] 00 bedtime. Medical Branch amLODIPine 2022-0 Yes [id number] 10mg Take 1 U nivers 10 mg 3-02 tablet by ity of tablet 00:00: mouth in [place] 00 the Medical morning. Branch allopurinoL 2022-0 Yes [id number] 200mg Take 2 [facility] 100 mg 3-02 tablets by ity of tablet 00:00: mouth in [place] 00 the Medical morning. Branch insulin 2022-0 Yes [id number] 10U inject 10 U nivers aspart 3-02 Units ity of U-100 00:00: under the [place] (NOVOLOG 00 skin in Medical FLEXPEN the Branch U-100 morning INSULIN) and 10 100 unit/mL Units at (3 mL) noon and injection 10 Units in the evening. inject before meals. insulin 2022-0 Yes [id number] 80U inject 80 U nivers degludec 3-02 Units ity of (TRESIBA 00:00: [place]LE[place] skin in Medical U-200) 200 the Branch unit/mL (3 morning mL) InPn and 80 Units in the evening. atorvastati 2022-0 Yes [id number] 40mg Take 1 [facility] n 40 mg 3-02 tablet by ity of tablet 00:00: mouth at [place] [address] bedtime. Medical Branch amLODIPine 2022-0 Yes [id number] 10mg Take 1 U nivers 10 mg 3-02 tablet by ity of tablet 00:00: mouth in [place] 00 the Medical morning. Branch allopurinoL 2022-0 Yes [id number] 200mg Take 2 [facility] 100 mg 3-02 tablets by ity of tablet 00:00: mouth in [place] 00 the Medical morning. Branch insulin 2022-0 Yes [id number] 10U inject 10 U nivers aspart 3-02 Units ity of U-100 00:00: under the [place] (NOVOLOG 00 skin in Medical FLEXPEN the Branch U-100 morning INSULIN) and 10 100 unit/mL Units at (3 mL) noon and injection 10 Units in the evening. inject before meals. insulin 2022-0 Yes [id number] 80U inject 80 U nivers degludec 3-02 Units ity of (TRESIBA 00:00: [facility] skin in [facility] U-200) 200 the Branch unit/mL (3 morning mL) InPn and 80 Units in the evening. atorvastati 2022-0 Yes [id number] 40mg Take 1 [facility] n 40 mg 3-02 tablet by ity of tablet 00:00: mouth at [place] [address] bedtime. Medical Branch amLODIPine 2022-0 Yes [id number] 10mg Take 1 U nivers 10 mg 3-02 tablet by ity of tablet 00:00: mouth in [place] 00 the Medical morning. Branch allopurinoL 2022-0 Yes [id number] 200mg Take 2 [facility] 100 mg 3-02 tablets by ity of tablet 00:00: mouth in [place] 00 the Medical morning. Branch insulin 2022-0 Yes [id number] 10U inject 10 U nivers aspart 3-02 Units ity of U-100 00:00: under the [place] (NOVOLOG 00 skin in Medical FLEXPEN the Branch U-100 morning INSULIN) and 10 100 unit/mL Units at (3 mL) noon and injection 10 Units in the evening. inject before meals. insulin 0 Yes [id number] 80U inject 80 U nivers degludec 3-02 Units ity of (TRESIBA 00:00: [place]LE[place] skin in Medical U-200) 200 the Branch unit/mL (3 morning mL) InPn and 80 Units in the evening. atorvastati 2022-0 Yes [id number] 40mg Take 1 [facility] n 40 mg 3-02 tablet by ity of tablet 00:00: mouth at [place] [address] bedtime. Medical Branch amLODIPine 2022-0 Yes [id number] 10mg Take 1 U nivers 10 mg 3-02 tablet by ity of tablet 00:00: mouth in [place] 00 the Medical morning. Branch allopurinoL 2022-0 Yes [id number] 200mg Take 2 [facility] 100 mg 3-02 tablets by ity of tablet 00:00: mouth in [place] the Medical morning. Branch insulin 0 Yes [id number] 10U inject 10 U nivers aspart 3-02 Units ity of U-100 00:00: under the [place] (NOVOLOG 00 skin in Medical FLEXPEN the Branch U-100 morning INSULIN) and 10 100 unit/mL Units at (3 mL) noon and injection 10 Units in the evening. inject before meals. insulin 0 Yes [id number] 80U inject 80 U nivers degludec 3-02 Units ity of (TRESIBA 00:00: [place]LE[place] skin in Medical U-200) 200 the Branch unit/mL (3 morning mL) InPn and 80 Units in the evening. atorvastati 2022-0 Yes [id number] 40mg Take 1 [facility] n 40 mg 3-02 tablet by ity of tablet 00:00: mouth at [place] [address] bedtime. Medical Branch amLODIPine 2022-0 Yes [id number] 10mg Take 1 U nivers 10 mg 3-02 tablet by ity of tablet 00:00: mouth in [place] 00 the Medical morning. Branch allopurinoL 2022-0 Yes [id number] 200mg Take 2 [facility] 100 mg 3-02 tablets by ity of tablet 00:00: mouth in [place] 00 the Medical morning. Branch insulin 2022-0 Yes [id number] 10U inject 10 U nivers aspart 3-02 Units ity of U-100 00:00: under the [place] (NOVOLOG 00 skin in Medical FLEXPEN the Branch U-100 morning INSULIN) and 10 100 unit/mL Units at (3 mL) noon and injection 10 Units in the evening. inject before meals. insulin 2022-0 Yes [id number] 80U inject 80 U nivers degludec 3-02 Units ity of (TRESIBA 00:00: [place]LE[place] skin in Medical U-200) 200 the Branch unit/mL (3 morning mL) InPn and 80 Units in the evening. atorvastati 2022-0 Yes [id number] 40mg Take 1 [facility] n 40 mg 3-02 tablet by ity of tablet 00:00: mouth at [place] [address] bedtime. Medical Branch amLODIPine 2022-0 Yes [id number] 10mg Take 1 U nivers 10 mg 3-02 tablet by ity of tablet 00:00: mouth in [place] the morning. Branch allopurinoL 2022-0 Yes [id number] 200mg Take 2 [facility] 100 mg 3-02 tablets by ity of tablet 00:00: mouth in [place] the morning. Branch insulin 2022-0 Yes [id number] 10U inject 10 U nivers aspart 3-02 Units ity of U-100 00:00: under the [place] (NOVOLOG 00 skin in Medical FLEXPEN the Branch U-100 morning INSULIN) and 10 100 unit/mL Units at (3 mL) noon and injection 10 Units in the evening. inject before meals. insulin 2022-0 Yes [id number] 80U inject 80 U nivers degludec 3-02 Units ity of (TRESIBA 00:00: [facility] skin in Medical U-200) 200 the Branch unit/mL (3 morning mL) InPn and 80 Units in the evening. atorvastati 2022-0 Yes [id number] 40mg Take 1 Univers n 40 mg 3-02 tablet by ity of tablet 00:00: mouth at [place] [address] bedtime. Medical Branch amLODIPine 2022-0 Yes [id number] 10mg Take 1 U nivers 10 mg 3-02 tablet by ity of tablet 00:00: mouth in [place] 00 the Medical morning. Branch insulin 2022-0 Yes [id number] 10U inject 10 U nivers aspart 3-02 Units ity of U-100 00:00: under the [place] (NOVOLOG 00 skin in Medical FLEXPEN the Branch U-100 morning INSULIN) and 10 100 unit/mL Units at (3 mL) noon and injection 10 Units in the evening. inject before meals. insulin 2022-0 Yes [id number] 80U inject 80 U nivers degludec 3-02 Units ity of (TRESIBA 00:00: [place]LE[place] skin in Medical U-200) 200 the Branch unit/mL (3 morning mL) InPn and 80 Units in the evening. atorvastati 2022-0 Yes [id number] 40mg Take 1 [facility] n 40 mg 3-02 tablet by ity of tablet 00:00: mouth at [place] [address] bedtime. Medical Branch amLODIPine 2022-0 Yes [id number] 10mg Take 1 U nivers 10 mg 3-02 tablet by ity of tablet 00:00: mouth in [place] the morning. Branch insulin 2022-0 Yes [id number] 10U inject 10 U nivers aspart 3-02 Units ity of U-100 00:00: under the [place] (NOVOLOG 00 skin in Medical FLEXPEN the Branch U-100 morning INSULIN) and 10 100 unit/mL Units at (3 mL) noon and injection 10 Units in the evening. inject before meals. insulin 2022-0 Yes [id number] 80U inject 80 U nivers degludec 3-02 Units ity of (TRESIBA 00:00: under the [facility] FLEXTOUCH 00 skin in Medical U-200) 200 the Branch unit/mL (3 morning mL) InPn and 80 Units in the evening. atorvastati 2022-0 Yes [id number] 40mg Take 1 Univers n 40 mg 3-02 tablet by ity of tablet 00:00: mouth at [place] [address] bedtime. Medical Branch amLODIPine 2022-0 Yes [id number] 10mg Take 1 U nivers 10 mg 3-02 tablet by ity of tablet 00:00: mouth in [place] 00 the morning. Branch insulin 2022-0 Yes [id number] 10U inject 10 U nivers aspart 3-02 Units ity of U-100 00:00: under the [place] (NOVOLOG 00 skin in Medical FLEXPEN the Branch U-100 morning INSULIN) and 10 100 unit/mL Units at (3 mL) noon and injection 10 Units in the evening. inject before meals. insulin 0 Yes [id number] 80U inject 80 U nivers degludec 3-02 Units ity of (TRESIBA 00:00: [place]LE[place] 00 skin in Medical U-200) 200 the Branch unit/mL (3 morning mL) InPn and 80 Units in the evening. atorvastati 0 Yes [id number] 40mg Take 1 Univers n 40 mg 3-02 tablet by ity of tablet 00:00: mouth at [place] 00 bedtime. Medical Branch amLODIPine 0 Yes [id number] 10mg Take 1 U nivers 10 mg 3-02 tablet by ity of tablet 00:00: mouth in [place] 00 the Medical morning. Branch insulin 0 Yes [id number] 10U inject 10 U nivers aspart 3-02 Units ity of U-100 00:00: under the [place] (NOVOLOG 00 skin in Medical FLEXPEN the Branch U-100 morning INSULIN) and 10 100 unit/mL Units at (3 mL) noon and injection 10 Units in the evening. inject before meals. insulin Yes [id number] 80U inject 80 U nivers degludec 3-02 Units ity of (TRESIBA 00:00: [facility] skin in Medical U-200) 200 the Branch unit/mL (3 morning mL) InPn and 80 Units in the evening. atorvastati 0 Yes [id number] 40mg Take 1 Univers n 40 mg 3-02 tablet by ity of tablet 00:00: mouth at [place] 00 bedtime. Medical Branch amLODIPine 2022-0 Yes [id number] 10mg Take 1 U nivers 10 mg 3-02 tablet by ity of tablet 00:00: mouth in [place] 00 the Medical morning. Branch insulin 0 Yes [id number] 10U inject 10 U nivers aspart 3-02 Units ity of U-100 00:00: under the [place] (NOVOLOG 00 skin in Medical FLEXPEN the Branch U-100 morning INSULIN) and 10 100 unit/mL Units at (3 mL) noon and injection 10 Units in the evening. inject before meals. insulin 2022-0 Yes [id number] 80U inject 80 U nivers degludec 3-02 Units ity of (TRESIBA 00:00: [place]LE[place] 00 skin in Medical U-200) 200 the Branch unit/mL (3 morning mL) InPn and 80 Units in the evening. atorvastati 2022-0 Yes [id number] 40mg Take 1 Univers n 40 mg 3-02 tablet by ity of tablet 00:00: mouth at [place] 00 bedtime. Medical Branch amLODIPine 2022-0 Yes [id number] 10mg Take 1 U nivers 10 mg 3-02 tablet by ity of tablet 00:00: mouth in [place] 00 the Medical morning. Branch insulin 0 Yes [id number] 10U inject 10 U nivers aspart 3-02 Units ity of U-100 00:00: under the [place] (NOVOLOG 00 skin in Medical FLEXPEN the Branch U-100 morning INSULIN) and 10 100 unit/mL Units at (3 mL) noon and injection 10 Units in the evening. inject before meals. insulin 0 Yes [id number] 80U inject 80 U nivers degludec 3-02 Units ity of (TRESIBA 00:00: [place]LE[place] skin in Medical U-200) 200 the Branch unit/mL (3 morning mL) InPn and 80 Units in the evening. atorvastati 2022-0 Yes [id number] 40mg Take 1 [facility] 40 mg 3-02 tablet by [facility] of tablet 00:00: mouth at [place] 00 bedtime. [facility] Branch amLODIPine 2022-0 Yes [id number] 10mg Take 1 U nivers 10 mg 3-02 tablet by it[facility] of tablet 00:00: mouth in [place] 00 the Medical morning. Branch insulin 2022-0 Yes [id number] 10U inject 10 U nivers aspart 3-02 Units ity of U-100 00:00: under the [place] (NOVOLOG 00 skin in Medical FLEXPEN the Branch U-100 morning INSULIN) and 10 100 unit/mL Units at (3 mL) noon and injection 10 Units in the evening. inject before meals. insulin 2022-0 Yes [id number] 80U inject 80 U nivers degludec 3-02 Units ity of (TRESIBA 00:00: [place]LE[place] skin in Medical U-200) 200 the Branch unit/mL (3 morning mL) InPn and 80 Units in the evening. atorvastati 0 Yes [id number] 40mg Take 1 [facility] n 40 mg 3-02 tablet by it[facility] of tablet 00:00: mouth at [place] 00 bedtime. [facility] Branch amLODIPine 0 Yes [id number] 10mg Take 1 U nivers 10 mg 3-02 tablet by ity of tablet 00:00: mouth in [place] 00 the Medical morning. Branch insulin 0 Yes [id number] 10U inject 10 U nivers aspart 3-02 Units ity of U-100 00:00: under the [place] (NOVOLOG 00 skin in Medical FLEXPEN the Branch U-100 morning INSULIN) and 10 100 unit/mL Units at (3 mL) noon and injection 10 Units in the evening. inject before meals. insulin Yes [id number] 80U inject 80 U nivers degludec 3-02 Units ity of (TRESIBA 00:00: [place]LE[place] skin in Medical U-200) 200 the Branch unit/mL (3 morning mL) InPn and 80 Units in the evening. atorvastati 0 Yes [id number] 40mg Take 1 [facility] n 40 mg 3-02 tablet by ity of tablet 00:00: mouth at [place] 00 bedtime. Medical Branch amLODIPine 2022-0 Yes [id number] 10mg Take 1 U nivers 10 mg 3-02 tablet by ity of tablet 00:00: mouth in [place] 00 the morning. Branch insulin 0 Yes [id number] 10U inject 10 U nivers aspart 3-02 Units ity of U-100 00:00: under the [place] (NOVOLOG 00 skin in Medical FLEXPEN the Branch U-100 morning INSULIN) and 10 100 unit/mL Units at (3 mL) noon and injection 10 Units in the evening. inject before meals. insulin 0 Yes [id number] 80U inject 80 U nivers degludec 3-02 Units ity of (TRESIBA 00:00: [place]LE[place] skin in Medical U-200) 200 the Branch unit/mL (3 morning mL) InPn and 80 Units in the evening. atorvastati 2022-0 Yes [id number] 40mg Take 1 [facility] n 40 mg 3-02 tablet by it[facility] of tablet 00:00: mouth at [place] 00 bedtime. Medical Branch amLODIPine 2022-0 Yes [id number] 10mg Take 1 U nivers 10 mg 3-02 tablet by ity of tablet 00:00: mouth in [place] 00 the Medical morning. Branch insulin 2022-0 Yes [id number] 10U inject 10 U nivers aspart 3-02 Units ity of U-100 00:00: under the [place] (NOVOLOG 00 skin in Medical FLEXPEN the Branch U-100 morning INSULIN) and 10 100 unit/mL Units at (3 mL) noon and injection 10 Units in the evening. inject before meals. insulin 2022-0 Yes [id number] 80U inject 80 U nivers degludec 3-02 Units ity of (TRESIBA 00:00: [place] skin in Medical U-200) 200 the Branch unit/mL (3 morning mL) InPn and 80 Units in the evening. atorvastati 0 Yes [id number] 40mg Take 1 [facility] n 40 mg 3-02 tablet by ity of tablet 00:00: mouth at [place] 00 bedtime. Medical Branch amLODIPine 2022-0 Yes [id number] 10mg Take 1 U nivers 10 mg 3-02 tablet by ity of tablet 00:00: mouth in [place] 00 the Medical morning. Branch insulin 2022-0 Yes [id number] 10U inject 10 U nivers aspart 3-02 Units ity of U-100 00:00: under the [place] (NOVOLOG 00 skin in Medical FLEXPEN the Branch U-100 morning INSULIN) and 10 100 unit/mL Units at (3 mL) noon and injection 10 Units in the evening. inject before meals. insulin 2022-0 Yes [id number] 80U inject 80 U nivers degludec 3-02 Units ity of (TRESIBA 00:00: [place]LE[place] skin in Medical U-200) 200 the Branch unit/mL (3 morning mL) InPn and 80 Units in the evening. atorvastati 2022-0 Yes [id number] 40mg Take 1 [facility] n 40 mg 3-02 tablet by ity of tablet 00:00: mouth at [place] 00 bedtime. Medical Branch amLODIPine 2022-0 Yes [id number] 10mg Take 1 U nivers 10 mg 3-02 tablet by ity of tablet 00:00: mouth in [place] 00 the Medical morning. Branch insulin 2022-0 Yes [id number] 10U inject 10 U nivers aspart 3-02 Units ity of U-100 00:00: under the [place] (NOVOLOG 00 skin in Medical FLEXPEN the Branch U-100 morning INSULIN) and 10 100 unit/mL Units at (3 mL) noon and injection 10 Units in the evening. inject before meals. insulin 2022-0 Yes [id number] 80U inject 80 U nivers degludec 3-02 Units ity of (TRESIBA 00:00: [place]LE[place] 00 skin in Medical U-200) 200 the Branch unit/mL (3 morning mL) InPn and 80 Units in the evening. atorvastati 2022-0 Yes [id number] 40mg Take 1 [facility] n 40 mg 3-02 tablet by ity of tablet 00:00: mouth at [place] 00 bedtime. Medical Branch amLODIPine 2022-0 Yes [id number] 10mg Take 1 U nivers 10 mg 3-02 tablet by ity of tablet 00:00: mouth in [place] 00 the morning. Branch insulin 2022-0 Yes [id number] 10U inject 10 U nivers aspart 3-02 Units ity of U-100 00:00: under the [place] (NOVOLOG 00 skin in Medical FLEXPEN the Branch U-100 morning INSULIN) and 10 100 unit/mL Units at (3 mL) noon and injection 10 Units in the evening. inject before meals. insulin 2022-0 Yes [id number] 80U inject 80 U nivers degludec 3-02 Units ity of (TRESIBA 00:00: [place] 00 skin in Medical U-200) 200 the Branch unit/mL (3 morning mL) InPn and 80 Units in the evening. atorvastati 2022-0 Yes [id number] 40mg Take 1 [facility] n 40 mg 3-02 tablet by ity of tablet 00:00: mouth at [place] [address] bedtime. Medical Branch amLODIPine 2022-0 Yes [id number] 10mg Take 1 [facility] nivers 10 mg 3-02 tablet by ity of tablet 00:00: mouth in [place] 00 the Medical morning. Branch insulin 0 Yes [id number] 10U inject 10 U nivers aspart 3-02 Units ity of U-100 00:00: under the [place] (NOVOLOG 00 skin in Medical FLEXPEN the Branch U-100 morning INSULIN) and 10 100 unit/mL Units at (3 mL) noon and injection 10 Units in the evening. inject before meals. insulin 2022-0 Yes [id number] 80U inject 80 U nivers degludec 3-02 Units ity of (TRESIBA 00:00: [place]LE[place] 00 skin in Medical U-200) 200 the Branch unit/mL (3 morning mL) InPn and 80 Units in the evening. atorvastati 2022-0 Yes [id number] 40mg Take 1 [facility] n 40 mg 3-02 tablet by ity of tablet 00:00: mouth at [place] [address] bedtime. Medical Branch amLODIPine 2022-0 Yes [id number] 10mg Take 1 [facility] nivers 10 mg 3-02 tablet by ity of tablet 00:00: mouth in [place] the morning. Branch insulin 0 Yes [id number] 10U inject 10 U nivers aspart 3-02 Units ity of U-100 00:00: under the [place] (NOVOLOG 00 skin in Medical FLEXPEN the Branch U-100 morning INSULIN) and 10 100 unit/mL Units at (3 mL) noon and injection 10 Units in the evening. inject before meals. insulin 2022-0 Yes [id number] 80U inject 80 U nivers degludec 3-02 Units ity of (TRESIBA 00:00: [facility] skin in Medical U-200) 200 the Branch unit/mL (3 morning mL) InPn and 80 Units in the evening. atorvastati 2022-0 Yes [id number] 40mg Take 1 [facility] n 40 mg 3-02 tablet by ity of tablet 00:00: mouth at [place] [address] bedtime. Medical Branch amLODIPine 2022-0 Yes [id number] 10mg Take 1 U nivers 10 mg 3-02 tablet by ity of tablet 00:00: mouth in [place] 00 the morning. Branch insulin 2022-0 Yes [id number] 10U inject 10 U nivers aspart 3-02 Units ity of U-100 00:00: under the [place] (NOVOLOG 00 skin in Medical FLEXPEN the Branch U-100 morning INSULIN) and 10 100 unit/mL Units at (3 mL) noon and injection 10 Units in the evening. inject before meals. insulin 0 Yes [id number] 80U inject 80 U nivers degludec 3-02 Units ity of (TRESIBA 00:00: [place]LE[place] 00 skin in Medical U-200) 200 the Branch unit/mL (3 morning mL) InPn and 80 Units in the evening. atorvastati 0 Yes [id number] 40mg Take 1 [facility] n 40 mg 3-02 tablet by ity of tablet 00:00: mouth at [place] 00 bedtime. Medical Branch amLODIPine 0 Yes [id number] 10mg Take 1 [facility] nivers 10 mg 3-02 tablet by ity of tablet 00:00: mouth in [place] 00 the Medical morning. Branch insulin 0 Yes [id number] 10U inject 10 U nivers aspart 3-02 Units ity of U-100 00:00: under the [place] (NOVOLOG 00 skin in Medical FLEXPEN the Branch U-100 morning INSULIN) and 10 100 unit/mL Units at (3 mL) noon and injection 10 Units in the evening. inject before meals. insulin Yes [id number] 80U inject 80 U nivers degludec 3-02 Units ity of (TRESIBA 00:00: [facility] skin in Medical U-200) 200 the Branch unit/mL (3 morning mL) InPn and 80 Units in the evening. atorvastati 2022-0 Yes [id number] 40mg Take 1 [facility] n 40 mg 3-02 tablet by ity of tablet 00:00: mouth at [place] 00 bedtime. Medical Branch amLODIPine 2022-0 Yes [id number] 10mg Take 1 [facility] nivers 10 mg 3-02 tablet by ity of tablet 00:00: mouth in [place] 00 the Medical morning. Branch insulin 0 Yes [id number] 10U inject 10 U nivers aspart 3-02 Units ity of U-100 00:00: under the [place] (NOVOLOG 00 skin in Medical FLEXPEN the Branch U-100 morning INSULIN) and 10 100 unit/mL Units at (3 mL) noon and injection 10 Units in the evening. inject before meals. insulin 2022-0 Yes [id number] 80U inject 80 U nivers degludec 3-02 Units ity of (TRESIBA 00:00: [place] 00 skin in Medical U-200) 200 the Branch unit/mL (3 morning mL) InPn and 80 Units in the evening. atorvastati 2022-0 Yes [id number] 40mg Take 1 [facility] n 40 mg 3-02 tablet by ity of tablet 00:00: mouth at [place] 00 bedtime. Medical Branch amLODIPine 2022-0 Yes [id number] 10mg Take 1 U nivers 10 mg 3-02 tablet by ity of tablet 00:00: mouth in [place] 00 the Medical morning. Branch insulin 2022-0 Yes [id number] 10U inject 10 U nivers aspart 3-02 Units ity of U-100 00:00: under the [place] (NOVOLOG 00 skin in Medical FLEXPEN the Branch U-100 morning INSULIN) and 10 100 unit/mL Units at (3 mL) noon and injection 10 Units in the evening. inject before meals. insulin 2022-0 Yes [id number] 80U inject 80 U nivers degludec 3-02 Units ity of (TRESIBA 00:00: [place]LEXT[place] 00 skin in Medical U-200) 200 the Branch unit/mL (3 morning mL) InPn and 80 Units in the evening. atorvastati 2022-0 Yes [id number] 40mg Take 1 [facility] n 40 mg 3-02 tablet by ity of tablet 00:00: mouth at [place] 00 bedtime. Medical Branch amLODIPine 2022-0 Yes [id number] 10mg Take 1 U nivers 10 mg 3-02 tablet by ity of tablet 00:00: mouth in [place] 00 the Medical morning. Branch insulin 2022-0 Yes [id number] 10U inject 10 U nivers aspart 3-02 Units ity of U-100 00:00: under the [place] (NOVOLOG 00 skin in Medical FLEXPEN the Branch U-100 morning INSULIN) and 10 100 unit/mL Units at (3 mL) noon and injection 10 Units in the evening. inject before meals. atorvastati 2022-0 Yes [id number] 40mg Take 1 [facility] n 40 mg 3-02 tablet by ity of tablet 00:00: mouth at [place] 00 bedtime. Medical Branch amLODIPine 2022-0 Yes [id number] 10mg Take 1 U nivers 10 mg 3-02 tablet by ity of tablet 00:00: mouth in [place] 00 the Medical morning. Branch insulin 2022-0 Yes [id number] 10U inject 10 U nivers aspart 3-02 Units ity of U-100 00:00: under the [place] (NOVOLOG 00 skin in Medical FLEXPEN the Branch U-100 morning INSULIN) and 10 100 unit/mL Units at (3 mL) noon and injection 10 Units in the evening. inject before meals. atorvastati 2022-0 Yes [id number] 40mg Take 1 [facility] n 40 mg 3-02 tablet by ity of tablet 00:00: mouth at [place] 00 bedtime. Medical Branch amLODIPine 2022-0 Yes [id number] 10mg Take 1 U nivers 10 mg 3-02 tablet by ity of tablet 00:00: mouth in [place] the morning. Branch insulin 2022-0 Yes [id number] 10U inject 10 U nivers aspart 3-02 Units ity of U-100 00:00: under the [place] (NOVOLOG 00 skin in Medical FLEXPEN the Branch U-100 morning INSULIN) and 10 100 unit/mL Units at (3 mL) noon and injection 10 Units in the evening. inject before meals. atorvastati 2022-0 Yes [id number] 40mg Take 1 [facility] n 40 mg 3-02 tablet by ity of tablet 00:00: mouth at [place] 00 bedtime. Medical Branch amLODIPine 2022-0 Yes [id number] 10mg Take 1 U nivers 10 mg 3-02 tablet by ity of tablet 00:00: mouth in [place] 00 the Medical morning. Branch insulin 2022-0 Yes [id number] 10U inject 10 U nivers aspart 3-02 Units ity of U-100 00:00: under the [place] (NOVOLOG 00 skin in Medical FLEXPEN the Branch U-100 morning INSULIN) and 10 100 unit/mL Units at (3 mL) noon and injection 10 Units in the evening. inject before meals. atorvastati 2022-0 Yes [id number] 40mg Take 1 [facility] n 40 mg 3-02 tablet by ity of tablet 00:00: mouth at [place] 00 bedtime. Medical Branch amLODIPine 2022-0 Yes [id number] 10mg Take 1 U nivers 10 mg 3-02 tablet by ity of tablet 00:00: mouth in [place] the Medical morning. Branch insulin 2022-0 Yes [id number] 10U inject 10 U nivers aspart 3-02 Units ity of U-100 00:00: under the [place] (NOVOLOG 00 skin in Medical FLEXPEN the Branch U-100 morning INSULIN) and 10 100 unit/mL Units at (3 mL) noon and injection 10 Units in the evening. inject before meals. atorvastati 2022-0 Yes [id number] 40mg Take 1 [facility] n 40 mg 3-02 tablet by ity of tablet 00:00: mouth at [place] 00 bedtime. Medical Branch amLODIPine 2022-0 Yes [id number] 10mg Take 1 U nivers 10 mg 3-02 tablet by ity of tablet 00:00: mouth in [place] the morning. Branch insulin 2022-0 Yes [id number] 10U inject 10 U nivers aspart 3-02 Units ity of U-100 00:00: under the [place] (NOVOLOG 00 skin in Medical FLEXPEN the Branch U-100 morning INSULIN) and 10 100 unit/mL Units at (3 mL) noon and injection 10 Units in the evening. inject before meals. atorvastati 2022-0 Yes [id number] 40mg Take 1 [facility] n 40 mg 3-02 tablet by ity of tablet 00:00: mouth at [place] [address] bedtime. Medical Branch amLODIPine 2022-0 Yes [id number] 10mg Take 1 U nivers 10 mg 3-02 tablet by ity of tablet 00:00: mouth in [place] the Medical morning. Branch insulin 2022-0 Yes [id number] 10U inject 10 U nivers aspart 3-02 Units ity of U-100 00:00: under the [place] (NOVOLOG 00 skin in Medical FLEXPEN the Branch U-100 morning INSULIN) and 10 100 unit/mL Units at (3 mL) noon and injection 10 Units in the evening. inject before meals. atorvastati 2022-0 Yes [id number] 40mg Take 1 [facility] n 40 mg 3-02 tablet by ity of tablet 00:00: mouth at [place] 00 bedtime. Medical Branch amLODIPine Yes [id number] 10mg Take 1 U nivers 10 mg 3-02 tablet by ity of tablet 00:00: mouth in [place] 00 the Medical morning. Branch insulin Yes [id number] 10U inject 10 U nivers aspart 3-02 Units ity of U-100 00:00: under the [place] (NOVOLOG 00 skin in Medical FLEXPEN the Branch U-100 morning INSULIN) and 10 100 unit/mL Units at (3 mL) noon and injection 10 Units in the evening. inject before meals. insulin 2022- No [id number] 80U inject 80 [facility] degludec 3-02 07-05 Units ity of (TRESIBA 00:00: 00:00 under the [place] FLEXTOUCH 00 :00 skin in Medical U-200) 200 the Branch unit/mL (3 morning mL) InPn and 80 Units in the evening. insulin 2022- No [id number] 80U inject 80 [facility] degludec - 07-05 Units ity of (TRESIBA 00:00: 00:00 under the [place] FLEXTOUCH 00 :00 skin in Medical U-200) 200 the Branch unit/mL (3 morning mL) InPn and 80 Units in the evening. allopurinoL 2022- No [id number] 200mg Take 2 [facility] 100 mg 3-02 04-04 tablets by ity of tablet 00:00: 00:00 mouth in [place] 00 :00 the Medical morning. Branch AMLODIPINE Yes [id number] TAKE ONE [facility] 10 mg 2-17 TABLET BY ity of tablet 00:00: MOUTH [place] 00 DAILY Medical Branch ATORVASTATI 2022-0 Yes [id number] TAKE ONE [facility] N 40 mg 2-17 TABLET BY ity of tablet 00:00: MOUTH AT [place] 00 BEDTIME Medical Branch AMLODIPINE 2022-0 Yes [id number] TAKE ONE [facility] 10 mg 2-17 TABLET BY ity of tablet 00:00: MOUTH [place] 00 DAILY Medical Branch ATORVASTATI 2022-0 Yes [id number] TAKE ONE [facility] N 40 mg 2-17 TABLET BY ity of tablet 00:00: MOUTH AT [place] 00 BEDTIME Medical Branch AMLODIPINE 2022-0 Yes [id number] TAKE ONE [facility] 10 mg 2-17 TABLET BY ity of tablet 00:00: MOUTH [place] 00 DAILY Medical Branch ATORVASTATI 2022-0 Yes [id number] TAKE ONE [facility] N 40 mg 2-17 TABLET BY ity of tablet 00:00: MOUTH AT [place] 00 BEDTIME Medical Branch AMLODIPINE 2022-0 Yes [id number] TAKE ONE [facility] 10 mg 2-17 TABLET BY ity of tablet 00:00: MOUTH [place] 00 DAILY Medical Branch ATORVASTATI 2022-0 Yes [id number] TAKE ONE [facility] N 40 mg 2-17 TABLET BY ity of tablet 00:00: MOUTH AT [place] 00 BEDTIME Medical Branch AMLODIPINE 2022-0 2022- No [id number] TAKE ONE [facility] 10 mg 2-17 03-02 TABLET BY ity of tablet 00:00: 00:00 [facility] 00 :00 DAILY Medical Branch ATORVASTATI 2022-0 2022- No [id number] TAKE ONE [facility] N 40 mg 2-17 03-02 TABLET BY ity of tablet 00:00: 00:00 MOUTH AT [place] 00 :00 BEDTIME Medical Branch AMLODIPINE 2022-0 2022- No [id number] TAKE ONE [facility] 10 mg 2-17 03-02 TABLET BY ity of tablet 00:00: 00:00 MOUTH [place] 00 :00 DAILY Medical Branch ATORVASTATI 2022-0 2022- No [id number] TAKE ONE [facility] N 40 mg 2-17 03-02 TABLET BY ity of tablet 00:00: 00:00 MOUTH AT [place] 00 :00 BEDTIME Medical Branch AMLODIPINE 3-0 3- No [id number] TAKE ONE [facility] 10 mg 2-17 03-02 TABLET BY ity of tablet 00:00: 00:00 MOUTH [place] 00 :00 DAILY Medical Branch ATORVASTATI 2022-0 3- No [id number] TAKE ONE [facility] N 40 mg 2-17 03-02 TABLET BY ity of tablet 00:00: 00:00 MOUTH AT [place] 00 :00 BEDTIME Medical Branch AMLODIPINE 3-0 3- No [id number] TAKE ONE [facility] 10 mg 2-17 03-02 TABLET BY ity of tablet 00:00: 00:00 MOUTH [place] 00 :00 DAILY Medical Branch ATORVASTATI 2022-0 3- No [id number] TAKE ONE [facility] N 40 mg 2-17 03-02 TABLET BY ity of tablet 00:00: 00:00 MOUTH AT [place] 00 :00 BEDTIME Medical Branch AMLODIPINE 2023-0 3- No [id number] TAKE ONE [facility] 10 mg 2-17 03-02 TABLET BY ity of tablet 00:00: 00:00 [facility] 00 :00 DAILY Medical Branch ATORVASTATI 3-0 3- No [id number] TAKE ONE [facility] N 40 mg 2-17 03-02 TABLET BY ity of tablet 00:00: 00:00 [facility] 00 :00 BEDTIME Medical Branch NEBIVOLOL 2023-0 Yes [id number] TAKE ONE [facility] 10 mg 2-06 TABLET BY ity of tablet 00:00: [facility] 00 DAILY Medical Branch NEBIVOLOL 2023-0 Yes [id number] TAKE ONE [facility] 10 mg 2-06 TABLET BY ity of tablet 00:00: [facility] DAILY Medical Branch NEBIVOLOL 2023-0 Yes [id number] TAKE ONE [facility] 10 mg 2-06 TABLET BY ity of tablet 00:00: [facility] DAILY Medical Branch NEBIVOLOL 2023-0 Yes [id number] TAKE ONE [facility] 10 mg 2-06 TABLET BY ity of tablet 00:00: [facility] 00 DAILY Medical Branch NEBIVOLOL 2023-0 Yes [id number] TAKE ONE [facility] 10 mg 2-06 TABLET BY ity of tablet 00:00: [facility] 00 DAILY Medical Branch NEBIVOLOL 2023-0 Yes [id number] TAKE ONE [facility] 10 mg 2-06 TABLET BY ity of tablet 00:00: [facility] 00 DAILY Medical Branch NEBIVOLOL 2023-0 Yes [id number] TAKE ONE [facility] 10 mg 2-06 TABLET BY ity of tablet 00:00: [facility] 00 DAILY Medical Branch NEBIVOLOL 2023-0 Yes [id number] TAKE ONE [facility] 10 mg 2-06 TABLET BY ity of tablet 00:00: [facility] 00 DAILY Medical Branch NEBIVOLOL 2023-0 Yes [id number] TAKE ONE [facility] 10 mg 2-06 TABLET BY ity of tablet 00:00: [facility] 00 DAILY Medical Branch NEBIVOLOL 2023-0 Yes [id number] TAKE ONE [facility] 10 mg 2-06 TABLET BY ity of tablet 00:00: [facility] 00 DAILY Medical Branch NEBIVOLOL 2023-0 2023- No [id number] TAKE ONE [facility] 10 mg 2-06 03-07 TABLET BY ity of tablet 00:00: 00:00 [facility] 00 :00 DAILY Medical Branch TAMSULOSIN 2023-0 Yes [id number] TAKE ONE [facility] 0.4 mg 24 1-23 CAPSULE BY ity of hr capsule 00:00: MOUTH [place] 00 EVERY Medical MORNING Branch TAMSULOSIN 2022-0 Yes [id number] TAKE ONE [facility] 0.4 mg 24 1-23 CAPSULE BY ity of hr capsule 00:00: MOUTH [place] 00 EVERY Medical MORNING Branch semaglutide 2022-0 Yes [id number] 1mg inject 1 [facility] (OZEMPIC) 1 1-23 mg under ity of mg/dose (4 00:00: the skin [place] mg/3 mL) 00 weekly. Medical PnIj Branch semaglutide 2022-0 Yes [id number] 1mg inject 1 [facility] (OZEMPIC) 1 1-23 mg under ity of mg/dose (4 00:00: the skin [place] mg/3 mL) 00 weekly. Medical PnIj Branch TAMSULOSIN 2022-0 Yes [id number] TAKE ONE [facility] 0.4 mg 24 1-23 CAPSULE BY ity of hr capsule 00:00: MOUTH [place] 00 EVERY Medical MORNING Branch semaglutide 2022-0 Yes [id number] 1mg inject 1 [facility] (OZEMPIC) 1 1-23 mg under ity of mg/dose (4 00:00: the skin [place] mg/3 mL) 00 weekly. Medical PnIj Branch TAMSULOSIN 2022-0 Yes [id number] TAKE ONE [facility] 0.4 mg 24 1-23 CAPSULE BY ity of hr capsule 00:00: MOUTH [place] 00 EVERY Medical MORNING Branch semaglutide 2022-0 Yes [id number] 1mg inject 1 [facility] (OZEMPIC) 1 1-23 mg under ity of mg/dose (4 00:00: the skin [place] mg/3 mL) 00 weekly. Medical PnIj Branch TAMSULOSIN 2022-0 Yes [id number] TAKE ONE [facility] 0.4 mg 24 1-23 CAPSULE BY ity of hr capsule 00:00: MOUTH [place] 00 EVERY Medical MORNING Branch semaglutide 2022-0 Yes [id number] 1mg inject 1 [facility] (OZEMPIC) 1 1-23 mg under ity of mg/dose (4 00:00: the skin [place] mg/3 mL) 00 weekly. Medical PnIj Branch TAMSULOSIN 2022-0 Yes [id number] TAKE ONE [facility] 0.4 mg 24 1-23 CAPSULE BY ity of hr capsule 00:00: MOUTH [place] 00 EVERY Medical MORNING Branch semaglutide 3-0 Yes [id number] 1mg inject 1 [facility] (OZEMPIC) 1 1-23 mg under ity of mg/dose (4 00:00: the skin [place] mg/3 mL) 00 weekly. Medical PnIj Branch TAMSULOSIN 3-0 Yes [id number] TAKE ONE [facility] 0.4 mg 24 1-23 CAPSULE BY ity of hr capsule 00:00: MOUTH [place] 00 EVERY Medical MORNING Branch semaglutide 3-0 Yes [id number] 1mg inject 1 [facility] (OZEMPIC) 1 1-23 mg under ity of mg/dose (4 00:00: the skin [place] mg/3 mL) 00 weekly. Medical PnIj Branch TAMSULOSIN 3-0 Yes [id number] TAKE ONE [facility] 0.4 mg 24 1-23 CAPSULE BY ity of hr capsule 00:00: MOUTH [place] 00 EVERY Medical MORNING Branch semaglutide 3-0 Yes [id number] 1mg inject 1 [facility] (OZEMPIC) 1 1-23 mg under ity of mg/dose (4 00:00: the skin [place] mg/3 mL) 00 weekly. Medical PnIj Branch TAMSULOSIN 3-0 Yes [id number] TAKE ONE [facility] 0.4 mg 24 1-23 CAPSULE BY ity of hr capsule 00:00: MOUTH [place] 00 EVERY Medical MORNING Branch TAMSULOSIN 3-0 Yes [id number] TAKE ONE [facility] 0.4 mg 24 1-23 CAPSULE BY ity of hr capsule 00:00: MOUTH [place] 00 EVERY Medical MORNING Branch TAMSULOSIN 3-0 Yes [id number] TAKE ONE [facility] 0.4 mg 24 1-23 CAPSULE BY ity of hr capsule 00:00: MOUTH [place] 00 EVERY Medical MORNING Branch TAMSULOSIN 3-0 Yes [id number] TAKE ONE [facility] 0.4 mg 24 1-23 CAPSULE BY ity of hr capsule 00:00: MOUTH [place] 00 EVERY Medical MORNING Branch TAMSULOSIN 3-0 Yes [id number] TAKE ONE [facility] 0.4 mg 24 1-23 CAPSULE BY ity of hr capsule 00:00: MOUTH [place] 00 EVERY Medical MORNING Branch TAMSULOSIN 3-0 Yes [id number] TAKE ONE [facility] 0.4 mg 24 1-23 CAPSULE BY ity of hr capsule 00:00: MOUTH [place] 00 EVERY Medical MORNING Branch TAMSULOSIN 2023-0 Yes [id number] TAKE ONE [facility] 0.4 mg 24 1-23 CAPSULE BY ity of hr capsule 00:00: MOUTH [place] 00 EVERY Medical MORNING Branch TAMSULOSIN 2023-0 Yes [id number] TAKE ONE [facility] 0.4 mg 24 1-23 CAPSULE BY ity of hr capsule 00:00: MOUTH 00 EVERY Medical MORNING Branch TAMSULOSIN 2023-0 Yes [id number] TAKE ONE [facility] 0.4 mg 24 1-23 CAPSULE BY ity of hr capsule 00:00: MOUTH 00 EVERY Medical MORNING Branch TAMSULOSIN 2023-0 Yes [id number] TAKE ONE [facility] 0.4 mg 24 1-23 CAPSULE BY ity of hr capsule 00:00: MOUTH 00 EVERY Medical MORNING Branch TAMSULOSIN 2023-0 Yes [id number] TAKE ONE [facility] 0.4 mg 24 1-23 CAPSULE BY ity of hr capsule 00:00: MOUTH EVERY Medical MORNING Branch TAMSULOSIN 2023-0 Yes [id number] TAKE ONE [facility] 0.4 mg 24 1-23 CAPSULE BY ity of hr capsule 00:00: MOUTH 00 EVERY Medical MORNING Branch TAMSULOSIN 2023-0 Yes [id number] TAKE ONE [facility] 0.4 mg 24 1-23 CAPSULE BY ity of hr capsule 00:00: MOUTH 00 EVERY Medical MORNING Branch TAMSULOSIN 2023-0 Yes [id number] TAKE ONE [facility] 0.4 mg 24 1-23 CAPSULE BY ity of hr capsule 00:00: MOUTH 00 EVERY Medical MORNING Branch TAMSULOSIN 2023-0 Yes [id number] TAKE ONE [facility] 0.4 mg 24 1-23 CAPSULE BY [facility] of hr capsule 00:00: MOUTH 00 EVERY Medical MORNING Branch TAMSULOSIN 2023-0 Yes [id number] TAKE ONE [facility] 0.4 mg 24 1-23 CAPSULE BY [facility] of hr capsule 00:00: MOUTH 00 EVERY Medical MORNING Branch TAMSULOSIN 2023-0 Yes [id number] TAKE ONE [facility] 0.4 mg 24 1-23 CAPSULE BY [facility] of hr capsule 00:00: MOUTH [place] 00 EVERY Medical MORNING Branch TAMSULOSIN 2023-0 Yes [id number] TAKE ONE [facility] 0.4 mg 24 1-23 CAPSULE BY [facility] of hr capsule 00:00: MOUTH 00 EVERY Medical MORNING Branch TAMSULOSIN 2023-0 Yes [id number] TAKE ONE [facility] 0.4 mg 24 1-23 CAPSULE BY [facility] of hr capsule 00:00: MOUTH [place] 00 EVERY Medical MORNING Branch TAMSULOSIN 2023-0 Yes [id number] TAKE ONE [facility] 0.4 mg 24 1-23 CAPSULE BY [facility] of hr capsule 00:00: MOUTH [place] 00 EVERY Medical MORNING Branch TAMSULOSIN 2023-0 Yes [id number] TAKE ONE [facility] 0.4 mg 24 1-23 CAPSULE BY [facility] of hr capsule 00:00: MOUTH [place] 00 EVERY Medical MORNING Branch TAMSULOSIN 2023-0 Yes [id number] TAKE ONE [facility] 0.4 mg 24 1-23 CAPSULE BY [facility] of hr capsule 00:00: MOUTH [place] 00 EVERY Medical MORNING Branch TAMSULOSIN 2023-0 Yes [id number] TAKE ONE [facility] 0.4 mg 24 1-23 CAPSULE BY [facility] of hr capsule 00:00: MOUTH [place] 00 EVERY Medical MORNING Branch TAMSULOSIN 2023-0 Yes [id number] TAKE ONE [facility] 0.4 mg 24 1-23 CAPSULE BY [facility] of hr capsule 00:00: MOUTH [place] 00 EVERY Medical MORNING Branch TAMSULOSIN 2023-0 Yes [id number] TAKE ONE [facility] 0.4 mg 24 1-23 CAPSULE BY [facility] of hr capsule 00:00: MOUTH [place] 00 EVERY Medical MORNING Branch TAMSULOSIN 2023-0 Yes [id number] TAKE ONE [facility] 0.4 mg 24 1-23 CAPSULE BY [facility]y of hr capsule 00:00: MOUTH [place] 00 EVERY Medical MORNING Branch TAMSULOSIN 2023-0 Yes [id number] TAKE ONE [facility] 0.4 mg 24 1-23 CAPSULE BY [facility]y of hr capsule 00:00: MOUTH [place] 00 EVERY Medical MORNING Branch TAMSULOSIN 2023-0 Yes [id number] TAKE ONE [facility] 0.4 mg 24 1-23 CAPSULE BY [facility] of hr capsule 00:00: MOUTH [place] 00 EVERY Medical MORNING Branch TAMSULOSIN 2023-0 Yes [id number] TAKE ONE [facility] 0.4 mg 24 1-23 CAPSULE BY [facility] of hr capsule 00:00: MOUTH [place] 00 EVERY Medical MORNING Branch TAMSULOSIN 2023-0 Yes [id number] TAKE ONE [facility] 0.4 mg 24 1-23 CAPSULE BY ity of hr capsule 00:00: MOUTH [place] 00 EVERY Medical MORNING Branch TAMSULOSIN 2023-0 Yes [id number] TAKE ONE [facility] 0.4 mg 24 1-23 CAPSULE BY ity of hr capsule 00:00: MOUTH [place] 00 EVERY Medical MORNING Branch TAMSULOSIN 2023-0 Yes [id number] TAKE ONE [facility] 0.4 mg 24 1-23 CAPSULE BY [facility] of hr capsule 00:00: MOUTH [place] 00 EVERY Medical MORNING Branch TAMSULOSIN 2022-0 Yes [id number] TAKE ONE [facility] 0.4 mg 24 1-23 CAPSULE BY [facility]y of hr capsule 00:00: MOUTH EVERY Medical MORNING Branch TAMSULOSIN 2022-0 Yes [id number] TAKE ONE [facility] 0.4 mg 24 1-23 CAPSULE BY [facility]y of hr capsule 00:00: MOUTH 00 EVERY Medical MORNING Branch TAMSULOSIN 3-0 Yes [id number] TAKE ONE [facility] 0.4 mg 24 1-23 CAPSULE BY ity of hr capsule 00:00: MOUTH EVERY Medical MORNING Branch TAMSULOSIN 2022-0 Yes [id number] TAKE ONE [facility] 0.4 mg 24 1-23 CAPSULE BY [facility]y of hr capsule 00:00: MOUTH EVERY Medical MORNING Branch semaglutide 2022-2022- No [id number] 1mg inject 1 [facility] (OZEMPIC) 1 1-23 03-04 mg under ity of mg/dose (4 00:00: 00:00 the skin [place] mg/3 mL) 00 :00 weekly. Medical [facility] semaglutide 2022-0 2022- No [id number] 1mg inject 1 [facility] (OZEMPIC) 1 1-23 03-04 mg under ity of mg/dose (4 00:00: 00:00 the skin [place] mg/3 mL) 00 :00 weekly. Medical [facility] semaglutide 2022-0 2022- No [id number] 1mg inject 1 [facility] (OZEMPIC) 1 1-23 03-04 mg under ity of mg/dose (4 00:00: 00:00 the skin [place] mg/3 mL) 00 :00 weekly. Medical [facility] ALLOPURINOL 2022-0 Yes [id number] TAKE TWO [facility] 100 mg 1-20 TABLETS BY ity of tablet 00:00: MOUTH [place] 00 DAILY Medical Branch AMLODIPINE 2022-0 Yes [id number] TAKE ONE [facility] 10 mg 1-20 TABLET BY ity of tablet 00:00: MOUTH 00 DAILY Medical Branch ALLOPURINOL 3-0 Yes [id number] TAKE TWO [facility] 100 mg 1-20 TABLETS BY ity of tablet 00:00: MOUTH [place] 00 DAILY Medical Branch AMLODIPINE 2023-0 Yes [id number] TAKE ONE [facility] 10 mg 1-20 TABLET BY ity of tablet 00:00: [facility] DAILY Medical Branch ALLOPURINOL 2023-0 Yes [id number] TAKE TWO [facility] 100 mg 1-20 TABLETS BY ity of tablet 00:00: [facility] DAILY Medical Branch AMLODIPINE 2023-0 Yes [id number] TAKE ONE [facility] 10 mg 1-20 TABLET BY ity of tablet 00:00: [facility] DAILY Medical Branch ALLOPURINOL 2023-0 Yes [id number] TAKE TWO [facility] 100 mg 1-20 TABLETS BY ity of tablet 00:00: [facility] DAILY Medical Branch AMLODIPINE 2023-0 Yes [id number] TAKE ONE [facility] 10 mg 1-20 TABLET BY ity of tablet 00:00: [facility] DAILY Medical Branch ALLOPURINOL 2023-0 Yes [id number] TAKE TWO [facility] 100 mg 1-20 TABLETS BY ity of tablet 00:00: [facility] DAILY Medical Branch ALLOPURINOL 3-0 Yes [id number] TAKE TWO [facility] 100 mg 1-20 TABLETS BY ity of tablet 00:00: [facility] DAILY Medical Branch ALLOPURINOL 3-0 Yes [id number] TAKE TWO [facility] 100 mg 1-20 TABLETS BY ity of tablet 00:00: [facility] DAILY Medical Branch ALLOPURINOL 3-0 Yes [id number] TAKE TWO [facility] 100 mg 1-20 TABLETS BY ity of tablet 00:00: [facility] DAILY Medical Branch ALLOPURINOL 2023-0 2023- No [id number] TAKE TWO [facility] 100 mg 1-20 03-02 TABLETS BY ity of tablet 00:00: 00:00 [facility] 00 : DAILY Medical Branch ALLOPURINOL 2023-0 2023- No [id number] TAKE TWO [facility] 100 mg 1-20 03-02 TABLETS BY ity of tablet 00:00: 00:00 [facility] 00 :00 DAILY Medical Branch ALLOPURINOL 2023-0 3- No [id number] TAKE TWO [facility] 100 mg 1-20 03-02 TABLETS BY ity of tablet 00:00: 00:00 [facility] 00 :00 DAILY Medical Branch ALLOPURINOL 2023-0 3- No [id number] TAKE TWO [facility] 100 mg 1-20 03-02 TABLETS BY ity of tablet 00:00: 00:00 MOUTH [place] 00 :00 DAILY Medical Branch ALLOPURINOL 3-0 3- No [id number] TAKE TWO [facility] 100 mg 1-20 03-02 TABLETS BY ity of tablet 00:00: 00:00 MOUTH [place] 00 : DAILY Medical Branch AMLODIPINE 3-0 2022- No [id number] TAKE ONE [facility] 10 mg 1-20 02-17 TABLET BY ity of tablet 00:00: 00:00 MOUTH [place] 00 : DAILY Medical Branch ATORVASTATI 2022-0 Yes [id number] TAKE ONE [facility] N 40 mg 1-02 TABLET BY ity of tablet 00:00: MOUTH AT [place] BEDTIME Medical Branch NEBIVOLOL 2022-0 Yes [id number] TAKE ONE [facility] 10 mg 1-02 TABLET BY ity of tablet 00:00: MOUTH [place] DAILY Medical Branch ATORVASTATI 2022-0 Yes [id number] TAKE ONE [facility] N 40 mg 1-02 TABLET BY ity of tablet 00:00: MOUTH AT [place] BEDTIME Medical Branch NEBIVOLOL 2022-0 Yes [id number] TAKE ONE [facility] 10 mg 1-02 TABLET BY ity of tablet 00:00: MOUTH [place] DAILY Medical Branch ATORVASTATI 2022-0 Yes [id number] TAKE ONE [facility] N 40 mg 1-02 TABLET BY ity of tablet 00:00: MOUTH AT [place] BEDTIME Medical Branch NEBIVOLOL 2022-0 Yes [id number] TAKE ONE [facility] 10 mg 1-02 TABLET BY ity of tablet 00:00: MOUTH [place] DAILY Medical Branch ATORVASTATI 3-0 Yes [id number] TAKE ONE [facility] N 40 mg 1-02 TABLET BY ity of tablet 00:00: MOUTH AT [place] BEDTIME Medical Branch NEBIVOLOL 3-0 Yes [id number] TAKE ONE [facility] 10 mg 1-02 TABLET BY ity of tablet 00:00: MOUTH [place] DAILY Medical Branch ATORVASTATI 2022-0 Yes [id number] TAKE ONE [facility] N 40 mg 1-02 TABLET BY ity of tablet 00:00: MOUTH AT [place] BEDTIME Medical Branch NEBIVOLOL 2022-0 Yes [id number] TAKE ONE [facility] 10 mg 1-02 TABLET BY ity of tablet 00:00: MOUTH [place] DAILY Medical Branch ATORVASTATI 2022-0 Yes [id number] TAKE ONE [facility] N 40 mg 1-02 TABLET BY ity of tablet 00:00: MOUTH AT [place] 00 BEDTIME Medical Branch ATORVASTATI 2022-0 2022- No [id number] TAKE ONE [facility] N 40 mg 1-02 -17 TABLET BY ity of tablet 00:00: 00:00 MOUTH AT [place] 00 :00 BEDTIME Medical Branch NEBIVOLOL 2022-0 2022- No [id number] TAKE ONE [facility] 10 mg 1-02 -06 TABLET BY ity of tablet 00:00: 00:00 MOUTH [place] 00 :00 DAILY Medical Branch METFORMIN 2021- Yes [id number] TAKE TWO [facility] ER 500 mg 1-22 TABLETS BY ity of 24 hr 00:00: MOUTH [place] tablet 00 TWICE A Medical DAY Branch METFORMIN 2021- Yes [id number] TAKE TWO [facility] ER 500 mg 1-22 TABLETS BY ity of 24 hr 00:00: MOUTH [place] tablet 00 TWICE A Medical DAY Branch METFORMIN 2021-1 Yes [id number] TAKE TWO [facility] ER 500 mg 1-22 TABLETS BY ity of 24 hr 00:00: MOUTH [place] tablet 00 TWICE A Medical DAY Branch METFORMIN 2021-1 Yes [id number] TAKE TWO [facility] ER 500 mg 1-22 TABLETS BY ity of 24 hr 00:00: MOUTH [place] tablet 00 TWICE A Medical DAY Branch METFORMIN 2021-1 Yes [id number] TAKE TWO [facility] ER 500 mg 1-22 TABLETS BY ity of 24 hr 00:00: MOUTH [place] tablet 00 TWICE A Medical DAY Branch METFORMIN 2021-1 Yes [id number] TAKE TWO [facility] ER 500 mg 1-22 TABLETS BY ity of 24 hr 00:00: MOUTH [place] tablet 00 TWICE A Medical DAY Branch METFORMIN 2-1 Yes [id number] TAKE TWO [facility] ER 500 mg 1-22 TABLETS BY ity of 24 hr 00:00: MOUTH [place] tablet 00 TWICE A Medical DAY Branch METFORMIN 2-1 Yes [id number] TAKE TWO [facility] ER 500 mg 1-22 TABLETS BY ity of 24 hr 00:00: MOUTH [place] tablet 00 TWICE A Medical DAY Branch METFORMIN 2-1 Yes [id number] TAKE TWO [facility] ER 500 mg 1-22 TABLETS BY ity of 24 hr 00:00: MOUTH [place] tablet 00 TWICE A Medical DAY Branch METFORMIN 2-1 Yes [id number] TAKE TWO [facility] ER 500 mg 1-22 TABLETS BY ity of 24 hr 00:00: MOUTH [place] tablet 00 TWICE A Medical DAY Branch METFORMIN 2022-1 Yes [id number] TAKE TWO [facility] ER 500 mg 1-22 TABLETS BY ity of 24 hr 00:00: MOUTH [place] tablet 00 TWICE A Medical DAY Branch METFORMIN 2022-1 Yes [id number] TAKE TWO [facility] ER 500 mg 1-22 TABLETS BY ity of 24 hr 00:00: MOUTH [place] tablet 00 TWICE A Medical DAY Branch METFORMIN 2-1 Yes [id number] TAKE TWO [facility] ER 500 mg 1-22 TABLETS BY ity of 24 hr 00:00: MOUTH [place] tablet 00 TWICE A Medical DAY Branch METFORMIN 2-1 Yes [id number] TAKE TWO [facility] ER 500 mg 1-22 TABLETS BY ity of 24 hr 00:00: MOUTH [place] tablet 00 TWICE A Medical DAY Branch METFORMIN 2-1 Yes [id number] TAKE TWO [facility] ER 500 mg 1-22 TABLETS BY ity of 24 hr 00:00: MOUTH [place] tablet 00 TWICE A Medical DAY Branch METFORMIN 2-1 Yes [id number] TAKE TWO [facility] ER 500 mg 1-22 TABLETS BY ity of 24 hr 00:00: MOUTH [place] tablet 00 TWICE A Medical DAY Branch METFORMIN 2-1 Yes [id number] TAKE TWO [facility] ER 500 mg 1-22 TABLETS BY ity of 24 hr 00:00: MOUTH [place] tablet 00 TWICE A Medical DAY Branch METFORMIN 2-1 Yes [id number] TAKE TWO [facility] ER 500 mg 1-22 TABLETS BY ity of 24 hr 00:00: MOUTH [place] tablet 00 TWICE A Medical DAY Branch METFORMIN 2-1 Yes [id number] TAKE TWO [facility] ER 500 mg 1-22 TABLETS BY ity of 24 hr 00:00: MOUTH [place] tablet 00 TWICE A Medical DAY Branch METFORMIN 2-1 Yes [id number] TAKE TWO [facility] ER 500 mg 1-22 TABLETS BY ity of 24 hr 00:00: MOUTH [place] tablet 00 TWICE A Medical DAY Branch METFORMIN 2-1 Yes [id number] TAKE TWO [facility] ER 500 mg 1-22 TABLETS BY ity of 24 hr 00:00: MOUTH [place] tablet 00 TWICE A Medical DAY Branch METFORMIN 2022-1 Yes [id number] TAKE TWO [facility] ER 500 mg 1-22 TABLETS BY ity of 24 hr 00:00: MOUTH [place] tablet 00 TWICE A Medical DAY Branch METFORMIN 2022-1 Yes [id number] TAKE TWO [facility] ER 500 mg 1-22 TABLETS BY ity of 24 hr 00:00: MOUTH [place] tablet 00 TWICE A Medical DAY Branch METFORMIN 2021- Yes [id number] TAKE TWO [facility] ER 500 mg 1-22 TABLETS BY ity of 24 hr 00:00: MOUTH [place] tablet 00 TWICE A Medical DAY Branch METFORMIN 2021- Yes [id number] TAKE TWO [facility] ER 500 mg 1-22 TABLETS BY ity of 24 hr 00:00: MOUTH [place] tablet 00 TWICE A Medical DAY Branch METFORMIN 2021- Yes [id number] TAKE TWO [facility] ER 500 mg 1-22 TABLETS BY ity of 24 hr 00:00: MOUTH [place] tablet 00 TWICE A Medical DAY Branch METFORMIN 2021- Yes [id number] TAKE TWO [facility] ER 500 mg 1-22 TABLETS BY ity of 24 hr 00:00: MOUTH [place] tablet 00 TWICE A Medical DAY Branch METFORMIN 2021- Yes [id number] TAKE TWO [facility] ER 500 mg 1-22 TABLETS BY ity of 24 hr 00:00: MOUTH [place] tablet 00 TWICE A Medical DAY Branch METFORMIN 2021- Yes [id number] TAKE TWO [facility] ER 500 mg 1-22 TABLETS BY ity of 24 hr 00:00: MOUTH [place] tablet 00 TWICE A Medical DAY Branch METFORMIN 2021- Yes [id number] TAKE TWO [facility] ER 500 mg 1-22 TABLETS BY ity of 24 hr 00:00: MOUTH [place] tablet 00 TWICE A Medical DAY Branch METFORMIN 2021- Yes [id number] TAKE TWO [facility] ER 500 mg 1-22 TABLETS BY ity of 24 hr 00:00: MOUTH [place] tablet 00 TWICE A Medical DAY Branch METFORMIN 2021- Yes [id number] TAKE TWO [facility] ER 500 mg 1-22 TABLETS BY ity of 24 hr 00:00: MOUTH [place] tablet 00 TWICE A Medical DAY Branch METFORMIN 2021-1 Yes [id number] TAKE TWO [facility] ER 500 mg 1-22 TABLETS BY ity of 24 hr 00:00: MOUTH [place] tablet 00 TWICE A Medical DAY Branch METFORMIN 2021- Yes [id number] TAKE TWO [facility] ER 500 mg 1-22 TABLETS BY ity of 24 hr 00:00: MOUTH [place] tablet 00 TWICE A Medical DAY Branch METFORMIN 2021- Yes [id number] TAKE TWO [facility] ER 500 mg 1-22 TABLETS BY ity of 24 hr 00:00: MOUTH [place] tablet 00 TWICE A Medical DAY Branch METFORMIN 2021- Yes [id number] TAKE TWO [facility] ER 500 mg 1-22 TABLETS BY ity of 24 hr 00:00: MOUTH [place] tablet 00 TWICE A Medical DAY Branch METFORMIN 2021-05 Yes [id number] TAKE TWO [facility] ER 500 mg 1-22 TABLETS BY ity of 24 hr 00:00: MOUTH [place] tablet 00 TWICE A Medical DAY Branch METFORMIN 2021-05- No [id number] TAKE TWO [facility] ER 500 mg 1-22 04-26 TABLETS BY ity of 24 hr 00:00: 00:00 MOUTH [place] tablet 00 :00 TWICE A Medical DAY Branch METFORMIN 2021-05- No [id number] TAKE TWO [facility] ER 500 mg 1-22 04-26 TABLETS BY ity of 24 hr 00:00: 00:00 MOUTH [place] tablet 00 :00 TWICE A Medical DAY Branch cephALEXin 2021- No [id number] 500mg Take 1 [facility] (KEFLEX) 12-15- capsule by ity of 500 mg 00:00: 04:59 mouth in [place] capsule 00 :00 the Medical morning Branch and 1 capsule in the evening. Do all this for 7 days. tamsulosin 0 Yes [id number] .4mg Take 1 [facility] (FLOMAX) 7-29 capsule by ity o f 0.4 mg 24 00:00: [place] hr capsule 00 the Medical morning. Branch tamsulosin 0 Yes [id number] .4mg Take 1 [place] (FLOMAX) 7-29 capsule by ity o f 0.4 mg 24 00:00: [place] hr capsule 00 the Medical morning. Branch tamsulosin 2021-0 Yes [id number] .4mg Take 1 [place] (FLOMAX) 7-29 capsule by ity o f 0.4 mg 24 00:00: [place] hr capsule 00 the Medical morning. Branch tamsulosin 2021-0 Yes [id number] .4mg Take 1 [facility] [place] (FLOMAX) 7-29 capsule by ity o f 0.4 mg 24 00:00: [place] hr capsule 00 the Medical morning. Branch tamsulosin 2021-0 Yes [id number] .4mg Take 1 [facility] [place] (FLOMAX) 7-29 capsule by ity o f 0.4 mg 24 00:00: [place] hr capsule 00 the Medical morning. Branch tamsulosin 2022-0 Yes [id number] .4mg Take 1 [place] (FLOMAX) 7-29 capsule by ity o f 0.4 mg 24 00:00: [place] hr capsule 00 the Medical morning. Branch tamsulosin 2022-0 Yes [id number] .4mg Take 1 [place] (FLOMAX) 7-29 capsule by ity o f 0.4 mg 24 00:00: [place] hr capsule 00 the Medical morning. Branch tamsulosin 2022-0 Yes [id number] .4mg Take 1 [facility] [place] (FLOMAX) 7-29 capsule by ity o f 0.4 mg 24 00:00: [place] hr capsule 00 the Medical morning. Branch tamsulosin 2022-0 Yes [id number] .4mg Take 1 [place] (FLOMAX) 7-29 capsule by ity o f 0.4 mg 24 00:00: [place] hr capsule 00 the Medical morning. Branch tamsulosin 2022-0 Yes [id number] .4mg Take 1 [facility] [place] (FLOMAX) 7-29 capsule by ity o f 0.4 mg 24 00:00: mouth [place] hr capsule 00 the Medical morning. Branch tamsulosin 2022-0 Yes [id number] .4mg Take 1 [facility] [place] (FLOMAX) 7-29 capsule by ity o f 0.4 mg 24 00:00: [place] hr capsule 00 the Medical morning. Branch tamsulosin 2022-0 Yes [id number] .4mg Take 1 [facility] [place] (FLOMAX) 7-29 capsule by ity o f 0.4 mg 24 00:00: [place] hr capsule 00 the Medical morning. Branch tamsulosin 2022-0 Yes [id number] .4mg Take 1 [facility] [place] (FLOMAX) 7-29 capsule by ity o f 0.4 mg 24 00:00: [place] hr capsule 00 the Medical morning. Branch tamsulosin 2022-0 Yes [id number] .[id number] Take 1 [place] (FLOMAX) 7-29 capsule by ity o f 0.4 mg 24 00:00: [place] hr capsule 00 the Medical morning. Branch tamsulosin 2022-0 Yes [id number] .4mg Take 1 [place] (FLOMAX) 7-29 capsule by ity o f 0.4 mg 24 00:00: [place] hr capsule 00 the Medical morning. Branch tamsulosin 2-0 Yes [id number] .4mg Take 1 [place] (FLOMAX) 7-29 capsule by ity o f 0.4 mg 24 00:00: [place] hr capsule 00 the Medical morning. Branch tamsulosin 2-0 Yes [id number] .4mg Take 1 [place] (FLOMAX) 7-29 capsule by ity o f 0.4 mg 24 00:00: [place] hr capsule 00 the Medical morning. Branch tamsulosin 2-0 Yes [id number] .4mg Take 1 [place] (FLOMAX) 7-29 capsule by ity o f 0.4 mg 24 00:00: [place] hr capsule 00 the Medical morning. Branch tamsulosin 2-0 Yes [id number] .4mg Take 1 [place] (FLOMAX) 7-29 capsule by ity o f 0.4 mg 24 00:00: [place] hr capsule 00 the Medical morning. Branch tamsulosin 2-0 Yes [id number] .4mg Take 1 [place] (FLOMAX) 7-29 capsule by ity o f 0.4 mg 24 00:00: [place] hr capsule 00 the Medical morning. Branch tamsulosin 2-0 Yes [id number] .4mg Take 1 [place] (FLOMAX) 7-29 capsule by ity o f 0.4 mg 24 00:00: [place] hr capsule 00 the Medical morning. Branch tamsulosin 2-0 Yes [id number] .4mg Take 1 [place] (FLOMAX) 7-29 capsule by ity o f 0.4 mg 24 00:00: [place] hr capsule 00 the Medical morning. Branch tamsulosin 2-0 Yes [id number] .4mg Take 1 [facility] [place] (FLOMAX) 7-29 capsule by ity o f 0.4 mg 24 00:00: [place] hr capsule 00 the Medical morning. Branch tamsulosin 2022-0 2023- No [id number] .4mg Take 1 [facility] (FLOMAX) 7-29 01-23 capsule by ity of 0.4 mg 24 00:00: 00:00 mouth in [place] hr capsule 00 :00 the Medical morning. Branch ergocalcife 2022-0 Yes [id number] Take 1 [facility] rol, 6-15 capsule by ity of vitamin d2, 00:00: mouth [place] 1,250 mcg 00 weekly. Medical (50,000 Branch unit) capsule dapaglifloz 2022-0 Yes [id number] 10mg Take 1 [facility] in 6-15 tablet by ity of (FARXIGA) 00:00: mouth [place] 10 mg 00 daily. Medical tablet Additional Branch refills per endo semaglutide 2022-0 Yes [id number] 1mg inject [facility] (OZEMPIC) 1 6-15 0.75 mL ity o f mg/dose (4 00:00: under the [place] mg/3 mL) 00 skin Medical PnIj weekly. Branch ergocalcife 2022-0 Yes [id number] Take 1 [facility] rol, 6-15 capsule by ity of vitamin d2, 00:00: mouth [place] 1,250 mcg 00 weekly. Medical (50,000 Branch unit) capsule dapaglifloz 2022-0 Yes [id number] 10mg Take 1 [facility] in 6-15 tablet by ity of (FARXIGA) 00:00: mouth [place] 10 mg 00 daily. Medical tablet Additional Branch refills per endo semaglutide 2022-0 Yes [id number] 1mg inject [facility] (OZEMPIC) 1 6-15 0.75 mL ity o f mg/dose (4 00:00: under the [place] mg/3 mL) 00 skin Medical PnIj weekly. Branch ergocalcife 2022-0 Yes [id number] Take 1 [facility] rol, 6-15 capsule by ity of vitamin d2, 00:00: mouth [place] 1,250 mcg 00 weekly. Medical (50,000 Branch unit) capsule dapaglifloz 2022-0 Yes [id number] 10mg Take 1 [facility] in 6-15 tablet by ity of (FARXIGA) 00:00: mouth [place] 10 mg 00 daily. Medical tablet Additional Branch refills per endo semaglutide 2022-0 Yes [id number] 1mg inject [facility] (OZEMPIC) 1 6-15 0.75 mL ity o f mg/dose (4 00:00: under the [place] mg/3 mL) 00 skin Medical PnIj weekly. Branch ergocalcife 2022-0 Yes [id number] Take 1 [facility] rol, 6-15 capsule by ity of vitamin d2, 00:00: mouth [place] 1,250 mcg 00 weekly. Medical (50,000 Branch unit) capsule dapaglifloz 2022-0 Yes [id number] 10mg Take 1 [facility] in 6-15 tablet by ity of (FARXIGA) 00:00: mouth [place] 10 mg 00 daily. Medical tablet Additional Branch refills per endo semaglutide 2022-0 Yes [id number] 1mg inject [facility] (OZEMPIC) 1 6-15 0.75 mL ity o f mg/dose (4 00:00: under the [place] mg/3 mL) 00 skin Medical PnIj weekly. Branch ergocalcife 2022-0 Yes [id number] Take 1 [facility] rol, 6-15 capsule by ity of vitamin d2, 00:00: mouth [place] 1,250 mcg 00 weekly. Medical (50,000 Branch unit) capsule dapaglifloz 2022-0 Yes [id number] 10mg Take 1 [facility] in 6-15 tablet by ity of (FARXIGA) 00:00: mouth [place] 10 mg 00 daily. Medical tablet Additional Branch refills per endo semaglutide 2022-0 Yes [id number] 1mg inject [facility] (OZEMPIC) 1 6-15 0.75 mL ity o f mg/dose (4 00:00: under the [place] mg/3 mL) 00 skin Medical PnIj weekly. Branch ergocalcife 2022-0 Yes [id number] Take 1 [facility] rol, 6-15 capsule by ity of vitamin d2, 00:00: mouth [place] 1,250 mcg 00 weekly. Medical (50,000 Branch unit) capsule dapaglifloz 2022-0 Yes [id number] 10mg Take 1 [facility] in 6-15 tablet by ity of (FARXIGA) 00:00: mouth [place] 10 mg 00 daily. Medical tablet Additional Branch refills per endo semaglutide 2022-0 Yes [id number] 1mg inject [facility] (OZEMPIC) 1 6-15 0.75 mL ity o f mg/dose (4 00:00: under the [place] mg/3 mL) 00 skin Medical PnIj weekly. Branch ergocalcife 2022-0 Yes [id number] Take 1 [facility] rol, 6-15 capsule by ity of vitamin d2, 00:00: mouth [place] 1,250 mcg 00 weekly. Medical (50,000 Branch unit) capsule dapaglifloz 2022-0 Yes [id number] 10mg Take 1 [facility] in 6-15 tablet by ity of (FARXIGA) 00:00: mouth [place] 10 mg 00 daily. Medical tablet Additional Branch refills per endo semaglutide 2022-0 Yes [id number] 1mg inject [facility] (OZEMPIC) 1 6-15 0.75 mL ity o f mg/dose (4 00:00: under the [place] mg/3 mL) 00 skin Medical PnIj weekly. Branch ergocalcife 2022-0 Yes [id number] Take 1 [facility] rol, 6-15 capsule by ity of vitamin d2, 00:00: mouth [place] 1,250 mcg 00 weekly. Medical (50,000 Branch unit) capsule dapaglifloz 2022-0 Yes [id number] 10mg Take 1 [facility] in 6-15 tablet by ity of (FARXIGA) 00:00: mouth [place] 10 mg 00 daily. Medical tablet Additional Branch refills per endo semaglutide 2022-0 Yes [id number] 1mg inject [facility] (OZEMPIC) 1 6-15 0.75 mL ity o f mg/dose (4 00:00: under the [place] mg/3 mL) 00 skin Medical PnIj weekly. Branch ergocalcife 2022-0 Yes [id number] Take 1 [facility] rol, 6-15 capsule by ity of vitamin d2, 00:00: mouth [place] 1,250 mcg 00 weekly. Medical (50,000 Branch unit) capsule dapaglifloz 2022-0 Yes [id number] 10mg Take 1 [facility] in 6-15 tablet by ity of (FARXIGA) 00:00: mouth [place] 10 mg 00 daily. Medical tablet Additional Branch refills per endo semaglutide 2022-0 Yes [id number] 1mg inject [facility] (OZEMPIC) 1 6-15 0.75 mL ity o f mg/dose (4 00:00: under the [place] mg/3 mL) 00 skin Medical PnIj weekly. Branch ergocalcife 2022-0 Yes [id number] Take 1 [facility] rol, 6-15 capsule by ity of vitamin d2, 00:00: mouth [place] 1,250 mcg 00 weekly. Medical (50,000 Branch unit) capsule dapaglifloz 2022-0 Yes [id number] 10mg Take 1 [facility] in 6-15 tablet by ity of (FARXIGA) 00:00: mouth [place] 10 mg 00 daily. Medical tablet Additional Branch refills per endo semaglutide 2022-0 Yes [id number] 1mg inject [facility] (OZEMPIC) 1 6-15 0.75 mL ity o f mg/dose (4 00:00: under the [place] mg/3 mL) 00 skin Medical PnIj weekly. Branch ergocalcife 2022-0 Yes [id number] Take 1 [facility] rol, 6-15 capsule by ity of vitamin d2, 00:00: mouth [place] 1,250 mcg 00 weekly. Medical (50,000 Branch unit) capsule dapaglifloz 2022-0 Yes [id number] 10mg Take 1 [facility] in 6-15 tablet by ity of (FARXIGA) 00:00: mouth [place] 10 mg 00 daily. Medical tablet Additional Branch refills per endo semaglutide 2022-0 Yes [id number] 1mg inject [facility] (OZEMPIC) 1 6-15 0.75 mL ity o f mg/dose (4 00:00: under the [place] mg/3 mL) 00 skin Medical PnIj weekly. Branch ergocalcife 2-0 Yes [id number] Take 1 [facility] rol, 6-15 capsule by ity of vitamin d2, 00:00: mouth [place] 1,250 mcg 00 weekly. Medical (50,000 Branch unit) capsule dapaglifloz 2022-0 Yes [id number] 10mg Take 1 [facility] in 6-15 tablet by ity of (FARXIGA) 00:00: mouth [place] 10 mg 00 daily. Medical tablet Additional Branch refills per endo semaglutide 2022-0 Yes [id number] 1mg inject [facility] (OZEMPIC) 1 6-15 0.75 mL ity o f mg/dose (4 00:00: under the [place] mg/3 mL) 00 skin Medical PnIj weekly. Branch ergocalcife 2022-0 Yes [id number] Take 1 [facility] rol, 6-15 capsule by ity of vitamin d2, 00:00: mouth [place] 1,250 mcg 00 weekly. Medical (50,000 Branch unit) capsule dapaglifloz 2022-0 Yes [id number] 10mg Take 1 [facility] in 6-15 tablet by ity of (FARXIGA) 00:00: mouth [place] 10 mg 00 daily. Medical tablet Additional Branch refills per endo semaglutide 2022-0 Yes [id number] 1mg inject [facility] (OZEMPIC) 1 6-15 0.75 mL ity o f mg/dose (4 00:00: under the [place] mg/3 mL) 00 skin Medical PnIj weekly. Branch ergocalcife 2022-0 Yes [id number] Take 1 [facility] rol, 6-15 capsule by ity of vitamin d2, 00:00: mouth [place] 1,250 mcg 00 weekly. Medical (50,000 Branch unit) capsule dapaglifloz 2022-0 Yes [id number] 10mg Take 1 [facility] in 6-15 tablet by ity of (FARXIGA) 00:00: mouth [place] 10 mg 00 daily. Medical tablet Additional Branch refills per endo semaglutide 2022-0 Yes [id number] 1mg inject [facility] (OZEMPIC) 1 6-15 0.75 mL ity o f mg/dose (4 00:00: under the [place] mg/3 mL) 00 skin Medical PnIj weekly. Branch ergocalcife 2022-0 Yes [id number] Take 1 [facility] rol, 6-15 capsule by ity of vitamin d2, 00:00: mouth [place] 1,250 mcg 00 weekly. Medical (50,000 Branch unit) capsule dapaglifloz 2022-0 Yes [id number] 10mg Take 1 [facility] in 6-15 tablet by ity of (FARXIGA) 00:00: mouth [place] 10 mg 00 daily. Medical tablet Additional Branch refills per endo semaglutide 2022-0 Yes [id number] 1mg inject [facility] (OZEMPIC) 1 6-15 0.75 mL ity o f mg/dose (4 00:00: under the [place] mg/3 mL) 00 skin Medical PnIj weekly. Branch ergocalcife 2022-0 Yes [id number] Take 1 [facility] rol, 6-15 capsule by ity of vitamin d2, 00:00: mouth [place] 1,250 mcg 00 weekly. Medical (50,000 Branch unit) capsule dapaglifloz 2022-0 Yes [id number] 10mg Take 1 [facility] in 6-15 tablet by ity of (FARXIGA) 00:00: mouth [place] 10 mg 00 daily. Medical tablet Additional Branch refills per endo semaglutide 2022-0 Yes [id number] 1mg inject [facility] (OZEMPIC) 1 6-15 0.75 mL ity o f mg/dose (4 00:00: under the [place] mg/3 mL) 00 skin Medical PnIj weekly. Branch ergocalcife 2022-0 Yes [id number] Take 1 [facility] rol, 6-15 capsule by ity of vitamin d2, 00:00: mouth [place] 1,250 mcg 00 weekly. Medical (50,000 Branch unit) capsule dapaglifloz 2022-0 Yes [id number] 10mg Take 1 [facility] in 6-15 tablet by ity of (FARXIGA) 00:00: mouth [place] 10 mg 00 daily. Medical tablet Additional Branch refills per endo semaglutide 2022-0 Yes [id number] 1mg inject [facility] (OZEMPIC) 1 6-15 0.75 mL ity o f mg/dose (4 00:00: under the [place] mg/3 mL) 00 skin Medical PnIj weekly. Branch ergocalcife 2022-0 Yes [id number] Take 1 [facility] rol, 6-15 capsule by ity of vitamin d2, 00:00: mouth [place] 1,250 mcg 00 weekly. Medical (50,000 Branch unit) capsule dapaglifloz 2022-0 Yes [id number] 10mg Take 1 [facility] in 6-15 tablet by ity of (FARXIGA) 00:00: mouth [place] 10 mg 00 daily. Medical tablet Additional Branch refills per endo semaglutide 2022-0 Yes [id number] 1mg inject [facility] (OZEMPIC) 1 6-15 0.75 mL ity o f mg/dose (4 00:00: under the [place] mg/3 mL) 00 skin Medical PnIj weekly. Branch ergocalcife 2022-0 Yes [id number] Take 1 [facility] rol, 6-15 capsule by ity of vitamin d2, 00:00: mouth [place] 1,250 mcg 00 weekly. Medical (50,000 Branch unit) capsule dapaglifloz 2022-0 Yes [id number] 10mg Take 1 [facility] in 6-15 tablet by ity of (FARXIGA) 00:00: mouth [place] 10 mg 00 daily. Medical tablet Additional Branch refills per endo semaglutide 2022-0 Yes [id number] 1mg inject [facility] (OZEMPIC) 1 6-15 0.75 mL ity o f mg/dose (4 00:00: under the [place] mg/3 mL) 00 skin Medical PnIj weekly. Branch ergocalcife 2022-0 Yes [id number] Take 1 [facility] rol, 6-15 capsule by ity of vitamin d2, 00:00: mouth [place] 1,250 mcg 00 weekly. Medical (50,000 Branch unit) capsule dapaglifloz 2022-0 Yes [id number] 10mg Take 1 [facility] in 6-15 tablet by ity of (FARXIGA) 00:00: mouth [place] 10 mg 00 daily. Medical tablet Additional Branch refills per endo semaglutide 2022-0 Yes [id number] 1mg inject [facility] (OZEMPIC) 1 6-15 0.75 mL ity o f mg/dose (4 00:00: under the [place] mg/3 mL) 00 skin Medical PnIj weekly. Branch ergocalcife 2022-0 Yes [id number] Take 1 [facility] rol, 6-15 capsule by ity of vitamin d2, 00:00: mouth [place] 1,250 mcg 00 weekly. Medical (50,000 Branch unit) capsule dapaglifloz 2022-0 Yes [id number] 10mg Take 1 [facility] in 6-15 tablet by ity of (FARXIGA) 00:00: mouth [place] 10 mg 00 daily. Medical tablet Additional Branch refills per endo semaglutide 2022-0 Yes [id number] 1mg inject [facility] (OZEMPIC) 1 6-15 0.75 mL ity o f mg/dose (4 00:00: under the [place] mg/3 mL) 00 skin Medical PnIj weekly. Branch ergocalcife 2022-0 Yes [id number] Take 1 [facility] rol, 6-15 capsule by ity of vitamin d2, 00:00: mouth [place] 1,250 mcg 00 weekly. Medical (50,000 Branch unit) capsule dapaglifloz 2022-0 Yes [id number] 10mg Take 1 [facility] in 6-15 tablet by ity of (FARXIGA) 00:00: mouth [place] 10 mg 00 daily. Medical tablet Additional Branch refills per endo semaglutide 2022-0 Yes [id number] 1mg inject [facility] (OZEMPIC) 1 6-15 0.75 mL ity o f mg/dose (4 00:00: under the [place] mg/3 mL) 00 skin Medical PnIj weekly. Branch ergocalcife 2022-0 Yes [id number] Take 1 [facility] rol, 6-15 capsule by ity of vitamin d2, 00:00: mouth [place] 1,250 mcg 00 weekly. Medical (50,000 Branch unit) capsule dapaglifloz 2022-0 Yes [id number] 10mg Take 1 [facility] in 6-15 tablet by ity of (FARXIGA) 00:00: mouth [place] 10 mg 00 daily. Medical tablet Additional Branch refills per endo semaglutide 2022-0 Yes [id number] 1mg inject [facility] (OZEMPIC) 1 6-15 0.75 mL ity o f mg/dose (4 00:00: under the [place] mg/3 mL) 00 skin Medical PnIj weekly. Branch ergocalcife 2022-0 Yes [id number] Take 1 [facility] rol, 6-15 capsule by ity of vitamin d2, 00:00: mouth [place] 1,250 mcg 00 weekly. Medical (50,000 Branch unit) capsule dapaglifloz 2022-0 Yes [id number] 10mg Take 1 [facility] in 6-15 tablet by ity of (FARXIGA) 00:00: mouth [place] 10 mg 00 daily. Medical tablet Additional Branch refills per endo semaglutide 2022-0 Yes [id number] 1mg inject [facility] (OZEMPIC) 1 6-15 0.75 mL ity o f mg/dose (4 00:00: under the [place] mg/3 mL) 00 skin Medical PnIj weekly. Branch ergocalcife 2022-0 Yes [id number] Take 1 [facility] rol, 6-15 capsule by ity of vitamin d2, 00:00: mouth [place] 1,250 mcg 00 weekly. Medical (50,000 Branch unit) capsule dapaglifloz 2022-0 Yes [id number] 10mg Take 1 [facility] in 6-15 tablet by ity of (FARXIGA) 00:00: mouth [place] 10 mg 00 daily. Medical tablet Additional Branch refills per endo semaglutide 2-0 Yes [id number] 1mg inject [facility] (OZEMPIC) 1 6-15 0.75 mL ity o f mg/dose (4 00:00: under the [place] mg/3 mL) 00 skin Medical PnIj weekly. Branch ergocalcife 2022-0 Yes [id number] Take 1 [facility] rol, 6-15 capsule by ity of vitamin d2, 00:00: mouth [place] 1,250 mcg 00 weekly. Medical (50,000 Branch unit) capsule dapaglifloz 2022-0 Yes [id number] 10mg Take 1 [facility] in 6-15 tablet by ity of (FARXIGA) 00:00: mouth [place] 10 mg 00 daily. Medical tablet Additional Branch refills per endo ergocalcife 2022-0 Yes [id number] Take 1 [facility] rol, 6-15 capsule by ity of vitamin d2, 00:00: mouth [place] 1,250 mcg 00 weekly. Medical (50,000 Branch unit) capsule dapaglifloz 2022-0 Yes [id number] 10mg Take 1 [facility] in 6-15 tablet by ity of (FARXIGA) 00:00: mouth [place] 10 mg 00 daily. Medical tablet Additional Branch refills per endo ergocalcife 2022-0 Yes [id number] Take 1 [facility] rol, 6-15 capsule by ity of vitamin d2, 00:00: mouth [place] 1,250 mcg 00 weekly. Medical (50,000 Branch unit) capsule dapaglifloz 2022-0 Yes [id number] 10mg Take 1 [facility] in 6-15 tablet by ity of (FARXIGA) 00:00: mouth [place] 10 mg 00 daily. Medical tablet Additional Branch refills per endo ergocalcife 2022-0 Yes [id number] Take 1 [facility] rol, 6-15 capsule by ity of vitamin d2, 00:00: mouth [place] 1,250 mcg 00 weekly. Medical (50,000 Branch unit) capsule dapaglifloz 2022-0 Yes [id number] 10mg Take 1 [facility] in 6-15 tablet by ity of (FARXIGA) 00:00: mouth [place] 10 mg 00 daily. Medical tablet Additional Branch refills per endo ergocalcife 2022-0 Yes [id number] Take 1 [facility] rol, 6-15 capsule by ity of vitamin d2, 00:00: mouth [place] 1,250 mcg 00 weekly. Medical (50,000 Branch unit) capsule dapaglifloz 2022-0 Yes [id number] 10mg Take 1 [facility] in 6-15 tablet by ity of (FARXIGA) 00:00: mouth [place] 10 mg 00 daily. Medical tablet Additional Branch refills per endo ergocalcife 2022-0 Yes [id number] Take 1 [facility] rol, 6-15 capsule by ity of vitamin d2, 00:00: mouth [place] 1,250 mcg 00 weekly. Medical (50,000 Branch unit) capsule dapaglifloz 2022-0 Yes [id number] 10mg Take 1 [facility] in 6-15 tablet by ity of (FARXIGA) 00:00: mouth [place] 10 mg 00 daily. Medical tablet Additional Branch refills per endo ergocalcife 2022-0 Yes [id number] Take 1 [facility] rol, 6-15 capsule by ity of vitamin d2, 00:00: mouth [place] 1,250 mcg 00 weekly. Medical (50,000 Branch unit) capsule ergocalcife 2022-0 Yes [id number] Take 1 [facility] rol, 6-15 capsule by ity of vitamin d2, 00:00: mouth [place] 1,250 mcg 00 weekly. Medical (50,000 Branch unit) capsule ergocalcife 2022-0 Yes [id number] Take 1 [facility] rol, 6-15 capsule by ity of vitamin d2, 00:00: mouth [place] 1,250 mcg 00 weekly. Medical (50,000 Branch unit) capsule ergocalcife 2022-0 Yes [id number] Take 1 [facility] rol, 6-15 capsule by ity of vitamin d2, 00:00: mouth [place] 1,250 mcg 00 weekly. Medical (50,000 Branch unit) capsule ergocalcife 2022-0 Yes [id number] Take 1 [facility] rol, 6-15 capsule by ity of vitamin d2, 00:00: mouth [place] 1,250 mcg 00 weekly. Medical (50,000 Branch unit) capsule ergocalcife 2022-0 Yes [id number] Take 1 [facility] rol, 6-15 capsule by ity of vitamin d2, 00:00: mouth [place] 1,250 mcg 00 weekly. Medical (50,000 Branch unit) capsule ergocalcife 2022-0 Yes [id number] Take 1 [facility] rol, 6-15 capsule by ity of vitamin d2, 00:00: mouth [place] 1,250 mcg 00 weekly. Medical (50,000 Branch unit) capsule ergocalcife 2022-0 Yes [id number] Take 1 [facility] rol, 6-15 capsule by ity of vitamin d2, 00:00: mouth [place] 1,250 mcg 00 weekly. Medical (50,000 Branch unit) capsule ergocalcife 2022-0 Yes [id number] Take 1 [facility] rol, 6-15 capsule by ity of vitamin d2, 00:00: mouth [place] 1,250 mcg 00 weekly. Medical (50,000 Branch unit) capsule ergocalcife 2022-0 Yes [id number] Take 1 [facility] rol, 6-15 capsule by ity of vitamin d2, 00:00: mouth [place] 1,250 mcg 00 weekly. Medical (50,000 Branch unit) capsule ergocalcife 2022-0 Yes [id number] Take 1 [facility] rol, 6-15 capsule by ity of vitamin d2, 00:00: mouth [place] 1,250 mcg 00 weekly. Medical (50,000 Branch unit) capsule ergocalcife 2022-0 Yes [id number] Take 1 [facility] rol, 6-15 capsule by ity of vitamin d2, 00:00: mouth [place] 1,250 mcg 00 weekly. Medical (50,000 Branch unit) capsule ergocalcife 2022-0 Yes [id number] Take 1 [facility] rol, 6-15 capsule by ity of vitamin d2, 00:00: mouth [place] 1,250 mcg 00 weekly. Medical (50,000 Branch unit) capsule ergocalcife 2022-0 Yes [id number] Take 1 [facility] rol, 6-15 capsule by ity of vitamin d2, 00:00: mouth [place] 1,250 mcg 00 weekly. Medical (50,000 Branch unit) capsule ergocalcife 2022-0 Yes [id number] Take 1 [facility] rol, 6-15 capsule by ity of vitamin d2, 00:00: mouth [place] 1,250 mcg 00 weekly. Medical (50,000 Branch unit) capsule ergocalcife 2022-0 Yes [id number] Take 1 [facility] rol, 6-15 capsule by ity of vitamin d2, 00:00: mouth [place] 1,250 mcg 00 weekly. Medical (50,000 Branch unit) capsule ergocalcife 2022-0 Yes [id number] Take 1 [facility] rol, 6-15 capsule by ity of vitamin d2, 00:00: mouth [place] 1,250 mcg 00 weekly. Medical (50,000 Branch unit) capsule ergocalcife 2022-0 Yes [id number] Take 1 [facility] rol, 6-15 capsule by ity of vitamin d2, 00:00: mouth [place] 1,250 mcg 00 weekly. Medical (50,000 Branch unit) capsule ergocalcife 2022-0 Yes [id number] Take 1 [facility] rol, 6-15 capsule by ity of vitamin d2, 00:00: mouth [place] 1,250 mcg 00 weekly. Medical (50,000 Branch unit) capsule ergocalcife 2022-0 Yes [id number] Take 1 [facility] rol, 6-15 capsule by ity of vitamin d2, 00:00: mouth [place] 1,250 mcg 00 weekly. Medical (50,000 Branch unit) capsule ergocalcife 2022-0 Yes [id number] Take 1 [facility] rol, 6-15 capsule by ity of vitamin d2, 00:00: mouth [place] 1,250 mcg 00 weekly. Medical (50,000 Branch unit) capsule ergocalcife 2022-0 Yes [id number] Take 1 [facility] rol, 6-15 capsule by ity of vitamin d2, 00:00: mouth [place] 1,250 mcg 00 weekly. Medical (50,000 Branch unit) capsule ergocalcife 2022-0 Yes [id number] Take 1 [facility] rol, 6-15 capsule by ity of vitamin d2, 00:00: mouth [place] 1,250 mcg 00 weekly. Medical (50,000 Branch unit) capsule ergocalcife 2022-0 Yes [id number] Take 1 [facility] rol, 6-15 capsule by ity of vitamin d2, 00:00: mouth [place] 1,250 mcg 00 weekly. Medical (50,000 Branch unit) capsule ergocalcife 2022-0 Yes [id number] Take 1 [facility] rol, 6-15 capsule by ity of vitamin d2, 00:00: mouth [place] 1,250 mcg 00 weekly. Medical (50,000 Branch unit) capsule ergocalcife 2022-0 Yes [id number] Take 1 [facility] rol, 6-15 capsule by ity of vitamin d2, 00:00: mouth [place] 1,250 mcg 00 weekly. Medical (50,000 Branch unit) capsule ergocalcife 2022-0 Yes [id number] Take 1 [facility] rol, 6-15 capsule by ity of vitamin d2, 00:00: mouth [place] 1,250 mcg 00 weekly. Medical (50,000 Branch unit) capsule ergocalcife 2022-0 Yes [id number] Take 1 [facility] rol, 6-15 capsule by ity of vitamin d2, 00:00: mouth [place] 1,250 mcg 00 weekly. Medical (50,000 Branch unit) capsule ergocalcife 2022-0 Yes [id number] Take 1 [facility] rol, 6-15 capsule by ity of vitamin d2, 00:00: mouth [place] 1,250 mcg 00 weekly. Medical (50,000 Branch unit) capsule ergocalcife 2022-0 2023- No [id number] Take 1 [facility] rol, 6-15 06-29 capsule by ity of vitamin d2, 00:00: 00:00 mouth [place] 1,250 mcg 00 :00 weekly. Medical (50,000 Branch unit) capsule dapaglifloz 2022-0 2023- No [id number] 10mg Take 1 [facility] in 10-29- tablet by ity of ([facility]) 00:00: 00:00 mouth [place] 10 mg 00 :00 daily. Medical tablet Additional Branch refills per endo dapaglifloz 2022-0 2023- No [id number] 10mg Take 1 [facility] in 10-29- tablet by ity of () 00:00: 00:00 mouth [place] 10 mg 00 :00 daily. Medical tablet Additional Branch refills per endo dapaglifloz 2022-0 2023- No [id number] 10mg Take 1 [facility] in 10-29- tablet by ity of (FARXIGA) 00:00: 00:00 mouth [place] 10 mg 00 :00 daily. Medical tablet Additional Branch refills per endo dapaglifloz 3- No [id number] 10mg Take 1 [facility] in 10-29 tablet by ity of (ZAHRAAXI) 00:00: 00:00 mouth [place] 10 mg 00 :00 daily. Medical tablet Additional Branch refills per endo dapaglifloz 3- No [id number] 10mg Take 1 [facility] in 10-29 tablet by ity of (ZAHRAA) 00:00: 00:00 mouth [place] 10 mg 00 :00 daily. Medical tablet Additional Branch refills per endo semaglutide 2022- No [id number] 1mg inject [facility] (OZEMPIC) 1 10-29 0.75 mL ity of mg/dose (4 00:00: 00:00 under the [place] mg/3 mL) 00 :00 skin Medical PnIj weekly. Branch metformin Yes [id number] 1000mg Take 2 [facility] ER 500 mg 5-26 tablets by ity of 24 hr 00:00: mouth 2 [place] tablet 00 (two) Medical times Branch daily. Additional refills per endo metformin Yes [id number] 1000mg Take 2 [facility] ER 500 mg 5-26 tablets by ity of 24 hr 00:00: mouth 2 [place] tablet 00 (two) Medical times Branch daily. Additional refills per endo metformin 0 Yes [id number] 1000mg Take 2 [facility] ER 500 mg 5-26 tablets by ity of 24 hr 00:00: mouth 2 [place] tablet 00 (two) Medical times Branch daily. Additional refills per endo metformin 0 Yes [id number] 1000mg Take 2 [facility] ER 500 mg 5-26 tablets by ity of 24 hr 00:00: mouth 2 [place] tablet 00 (two) Medical times Branch daily. Additional refills per endo metformin 0 Yes [id number] 1000mg Take 2 [facility] ER 500 mg 5-26 tablets by ity of 24 hr 00:00: mouth 2 [place] tablet 00 (two) Medical times Branch daily. Additional refills per endo metformin 0 Yes [id number] 1000mg Take 2 [facility] ER 500 mg 5-26 tablets by ity of 24 hr 00:00: mouth 2 [place] tablet 00 (two) Medical times Branch daily. Additional refills per endo metformin 2021-0 Yes [id number] 1000mg Take 2 [facility] ER 500 mg 5-26 tablets by ity of 24 hr 00:00: mouth 2 [place] tablet 00 (two) Medical times Branch daily. Additional refills per endo metformin 2021-0 Yes [id number] 1000mg Take 2 [facility] ER 500 mg 5-26 tablets by ity of 24 hr 00:00: mouth 2 [place] tablet 00 (two) Medical times Branch daily. Additional refills per endo metformin 2021-0 Yes [id number] 1000mg Take 2 [facility] ER 500 mg 5-26 tablets by ity of 24 hr 00:00: mouth 2 [place] tablet 00 (two) Medical times Branch daily. Additional refills per endo metformin 0 Yes [id number] 1000mg Take 2 [facility] ER 500 mg 5-26 tablets by ity of 24 hr 00:00: mouth 2 [place] tablet 00 (two) Medical times Branch daily. Additional refills per endo metformin 202- No [id number] 1000mg Take 2 [facility] ER 500 mg 5-26 11-22 tablets by ity of 24 hr 00:00: 00:00 mouth 2 [place] tablet 00 :00 (two) Medical times Branch daily. Additional refills per endo insulin 0 Yes [id number] 10U inject 10 U nivers aspart 3-08 Units ity of U-100 00:00: under the [place] (NOVOLOG 00 skin 3 Medical FLEXPEN (three) Branch U-100 times INSULIN) daily 100 unit/mL before (3 mL) meals. injection insulin 0 Yes [id number] 10U inject 10 U nivers aspart 3-08 Units ity of U-100 00:00: under the [place] (NOVOLOG 00 skin 3 Medical FLEXPEN (three) Branch U-100 times INSULIN) daily 100 unit/mL before (3 mL) meals. injection insulin 0 Yes [id number] 10U inject 10 U nivers aspart 3-08 Units ity of U-100 00:00: under the [place] (NOVOLOG 00 skin 3 Medical FLEXPEN (three) Branch U-100 times INSULIN) daily 100 unit/mL before (3 mL) meals. injection insulin 0 Yes [id number] 10U inject 10 U nivers aspart 3-08 Units ity of U-100 00:00: under the [place] (NOVOLOG 00 skin 3 Medical FLEXPEN (three) Branch U-100 times INSULIN) daily 100 unit/mL before (3 mL) meals. injection insulin 2021-0 Yes [id number] 10U inject 10 U nivers aspart 3-08 Units ity of U-100 00:00: under the [place] (NOVOLOG 00 skin 3 Medical FLEXPEN (three) Branch U-100 times INSULIN) daily 100 unit/mL before (3 mL) meals. injection insulin 0 Yes [id number] 10U inject 10 U nivers aspart 3-08 Units ity of U-100 00:00: under the [place] (NOVOLOG 00 skin 3 Medical FLEXPEN (three) Branch U-100 times INSULIN) daily 100 unit/mL before (3 mL) meals. injection insulin 0 Yes [id number] 10U inject 10 U nivers aspart 3-08 Units ity of U-100 00:00: under the [place] (NOVOLOG 00 skin 3 Medical FLEXPEN (three) Branch U-100 times INSULIN) daily 100 unit/mL before (3 mL) meals. injection insulin 0 Yes [id number] 10U inject 10 U nivers aspart 3-08 Units ity of U-100 00:00: under the [place] (NOVOLOG 00 skin 3 Medical FLEXPEN (three) Branch U-100 times INSULIN) daily 100 unit/mL before (3 mL) meals. injection insulin 2021-0 Yes [id number] 10U inject 10 U nivers aspart 3-08 Units ity of U-100 00:00: under the [place] (NOVOLOG 00 skin 3 Medical FLEXPEN (three) Branch U-100 times INSULIN) daily 100 unit/mL before (3 mL) meals. injection insulin 2021-0 Yes [id number] 10U inject 10 U nivers aspart 3-08 Units ity of U-100 00:00: under the [place] (NOVOLOG 00 skin 3 Medical FLEXPEN (three) Branch U-100 times INSULIN) daily 100 unit/mL before (3 mL) meals. injection insulin 2021-0 Yes [id number] 10U inject 10 U nivers aspart 3-08 Units ity of U-100 00:00: under the [place] (NOVOLOG 00 skin 3 Medical FLEXPEN (three) Branch U-100 times INSULIN) daily 100 unit/mL before (3 mL) meals. injection insulin 2022-0 Yes [id number] 10U inject 10 U nivers aspart 3-08 Units ity of U-100 00:00: under the [place] (NOVOLOG 00 skin 3 Medical FLEXPEN (three) Branch U-100 times INSULIN) daily 100 unit/mL before (3 mL) meals. injection insulin 2021-0 Yes [id number] 10U inject 10 U nivers aspart 3-08 Units ity of U-100 00:00: under the [place] (NOVOLOG 00 skin 3 Medical FLEXPEN (three) Branch U-100 times INSULIN) daily 100 unit/mL before (3 mL) meals. injection insulin 2021-0 Yes [id number] 10U inject 10 U nivers aspart 3-08 Units ity of U-100 00:00: under the [place] (NOVOLOG 00 skin 3 Medical FLEXPEN (three) Branch U-100 times INSULIN) daily 100 unit/mL before (3 mL) meals. injection insulin 2021-0 Yes [id number] 10U inject 10 U nivers aspart 3-08 Units ity of U-100 00:00: under the [place] (NOVOLOG 00 skin 3 Medical FLEXPEN (three) Branch U-100 times INSULIN) daily 100 unit/mL before (3 mL) meals. injection insulin 2021-0 Yes [id number] 10U inject 10 U nivers aspart 3-08 Units ity of U-100 00:00: under the [place] (NOVOLOG 00 skin 3 Medical FLEXPEN (three) Branch U-100 times INSULIN) daily 100 unit/mL before (3 mL) meals. injection insulin 2021-0 Yes [id number] 10U inject 10 U nivers aspart 3-08 Units ity of U-100 00:00: under the [place] (NOVOLOG 00 skin 3 Medical FLEXPEN (three) Branch U-100 times INSULIN) daily 100 unit/mL before (3 mL) meals. injection insulin 2021-0 Yes [id number] 10U inject 10 U nivers aspart 3-08 Units ity of U-100 00:00: under the [place] (NOVOLOG 00 skin 3 Medical FLEXPEN (three) Branch U-100 times INSULIN) daily 100 unit/mL before (3 mL) meals. injection insulin 2021-0 Yes [id number] 10U inject 10 U nivers aspart 3-08 Units ity of U-100 00:00: under the [place] (NOVOLOG 00 skin 3 Medical FLEXPEN (three) Branch U-100 times INSULIN) daily 100 unit/mL before (3 mL) meals. injection insulin 2021-0 Yes [id number] 10U inject 10 U nivers aspart 3-08 Units ity of U-100 00:00: under the [place] (NOVOLOG 00 skin 3 Medical FLEXPEN (three) Branch U-100 times INSULIN) daily 100 unit/mL before (3 mL) meals. injection insulin 2021-0 Yes [id number] 10U inject 10 U nivers aspart 3-08 Units ity of U-100 00:00: under the [place] (NOVOLOG 00 skin 3 Medical FLEXPEN (three) Branch U-100 times INSULIN) daily 100 unit/mL before (3 mL) meals. injection insulin 2021-0 Yes [id number] 10U inject 10 U nivers aspart 3-08 Units ity of U-100 00:00: under the [place] (NOVOLOG 00 skin 3 Medical FLEXPEN (three) Branch U-100 times INSULIN) daily 100 unit/mL before (3 mL) meals. injection insulin 2021-0 Yes [id number] 10U inject 10 U nivers aspart 3-08 Units ity of U-100 00:00: under the [place] (NOVOLOG 00 skin 3 Medical FLEXPEN (three) Branch U-100 times INSULIN) daily 100 unit/mL before (3 mL) meals. injection insulin 2021-0 Yes [id number] 10U inject 10 U nivers aspart 3-08 Units ity of U-100 00:00: under the [place] (NOVOLOG 00 skin 3 Medical FLEXPEN (three) Branch U-100 times INSULIN) daily 100 unit/mL before (3 mL) meals. injection insulin 2021-0 Yes [id number] 10U inject 10 U nivers aspart 3-08 Units ity of U-100 00:00: under the [place] (NOVOLOG 00 skin 3 Medical FLEXPEN (three) Branch U-100 times INSULIN) daily 100 unit/mL before (3 mL) meals. injection insulin 2021-0 Yes [id number] 10U inject 10 U nivers aspart 3-08 Units ity of U-100 00:00: under the [place] (NOVOLOG 00 skin 3 Medical FLEXPEN (three) Branch U-100 times INSULIN) daily 100 unit/mL before (3 mL) meals. injection insulin 2021-0 Yes [id number] 10U inject 10 U nivers aspart 3-08 Units ity of U-100 00:00: under the [place] (NOVOLOG 00 skin 3 Medical FLEXPEN (three) Branch U-100 times INSULIN) daily 100 unit/mL before (3 mL) meals. injection insulin 0 Yes [id number] 10U inject 10 U nivers aspart 3-08 Units ity of U-100 00:00: under the [place] (NOVOLOG 00 skin 3 Medical FLEXPEN (three) Branch U-100 times INSULIN) daily 100 unit/mL before (3 mL) meals. injection insulin Yes [id number] 10U inject 10 U nivers aspart 3-08 Units ity of U-100 00:00: under the [place] (NOVOLOG 00 skin 3 Medical FLEXPEN (three) Branch U-100 times INSULIN) daily 100 unit/mL before (3 mL) meals. injection insulin Yes [id number] 10U inject 10 U nivers aspart 3-08 Units ity of U-100 00:00: under the [place] (NOVOLOG 00 skin 3 Medical FLEXPEN (three) Branch U-100 times INSULIN) daily 100 unit/mL before (3 mL) meals. injection insulin Yes [id number] 10U inject 10 U nivers aspart 3-08 Units ity of U-100 00:00: under the [place] (NOVOLOG 00 skin 3 Medical FLEXPEN (three) Branch U-100 times INSULIN) daily 100 unit/mL before (3 mL) meals. injection insulin 2022- No [id number] 10U inject 10 [facility] aspart 3-08 03-02 Units ity of U-100 00:00: 00:00 under the [place] (NOVOLOG 00 :00 skin 3 Medical FLEXPEN (three) Branch U-100 times INSULIN) daily 100 unit/mL before (3 mL) meals. injection insulin 3- No [id number] 10U inject 10 [facility] aspart 3-08 03-02 Units [facility] U-100 00:00: 00:00 under the [place] (NOVOLOG 00 :00 skin 3 Medical FLEXPEN (three) Branch U-100 times INSULIN) daily 100 unit/mL before (3 mL) meals. injection insulin 3- No [id number] 10U inject 10 [facility] aspart 3-08 03-02 Units [facility] of U-100 00:00: 00:00 under the [place] (NOVOLOG 00 :00 skin 3 Medical FLEXPEN (three) Branch U-100 times INSULIN) daily 100 unit/mL before (3 mL) meals. injection insulin 2022- No [id number] 10U inject 10 [facility] aspart 3-08 03-02 Units [facility] of U-100 00:00: 00:00 under the [place] (NOVOLOG 00 :00 skin 3 Medical FLEXPEN (three) Branch U-100 times INSULIN) daily 100 unit/mL before (3 mL) meals. injection insulin 2022- No [id number] 10U inject 10 [facility] aspart 3-08 03-02 Units [facility] of U-100 00:00: 00:00 under the [place] (NOVOLOG 00 :00 skin 3 Medical FLEXPEN (three) Branch U-100 times INSULIN) daily 100 unit/mL before (3 mL) meals. injection nebivoloL 2020-05 Yes [id number] 10mg Take 1 [facility] (BYSTOLIC) 2-15 tablet by [facility]y of 10 mg 00:00: mouth [place] tablet 00 daily. [facility] lisinopriL 2020-05 Yes [id number] 40mg Take 1 U nivers 40 mg 2-15 tablet by [facility] of tablet 00:00: mouth [place] 00 daily. [facility] fenofibrate 2020-05 Yes [id number] 200mg Take 1 [facility] micronized 2-15 capsule by [facility] of 200 mg 00:00: mouth [place] capsule 00 daily with Medica l breakfast. [facility] atorvastati 2020-05 Yes [id number] 40mg Take 1 [facility] n 40 mg 2-15 tablet by [facility] of tablet 00:00: mouth at [place] 00 bedtime. [facility] amLODIPine 2020-05 Yes [id number] 10mg Take 1 [facility] nivers 10 mg 2-15 tablet by [facility] of tablet 00:00: mouth [place] 00 daily. [facility] allopurinoL 2020-05 Yes [id number] 200mg Take 2 [facility] 100 mg 2-15 tablets by [facility] of tablet 00:00: mouth [place] 00 daily. [facility] nebivoloL 2020-05 Yes [id number] 10mg Take 1 [facility] (BYSTOLIC) 2-15 tablet by [facility] of 10 mg 00:00: mouth [place] tablet 00 daily. [facility] lisinopriL 2020-05 Yes [id number] 40mg Take 1 [facility] nivers 40 mg 2-15 tablet by [facility] of tablet 00:00: mouth [place] 00 daily. [facility] fenofibrate 2020-05 Yes [id number] 200mg Take 1 [facility] micronized 2-15 capsule by [facility] of 200 mg 00:00: mouth [place] capsule 00 daily with Medica l breakfast. [facility] atorvastati 2020-05 Yes [id number] 40mg Take 1 [facility] n 40 mg 2-15 tablet by [facility] of tablet 00:00: mouth at [place] 00 bedtime. [facility] amLODIPine 2020-05 Yes [id number] 10mg Take 1 [facility] nivers 10 mg 2-15 tablet by [facility] of tablet 00:00: mouth [place] 00 daily. [facility] allopurinoL 2020-05 Yes [id number] 200mg Take 2 [facility] 100 mg 2-15 tablets by [facility] of tablet 00:00: mouth [place] 00 daily. [facility] nebivoloL 2020-05 Yes [id number] 10mg Take 1 [facility] (BYSTOLIC) 2-15 tablet by [facility] of 10 mg 00:00: mouth [place] tablet 00 daily. [facility] lisinopriL 2020-05 Yes [id number] 40mg Take 1 [facility] nivers 40 mg 2-15 tablet by [facility] of tablet 00:00: mouth [place] 00 daily. [facility] fenofibrate 2020-05 Yes [id number] 200mg Take 1 [facility] micronized 2-15 capsule by [facility] of 200 mg 00:00: mouth [place] capsule 00 daily with Med[facility] l breakfast. [facility] atorvastati 2020-05 Yes [id number] 40mg Take 1 [facility] n 40 mg 2-15 tablet by [facility] of tablet 00:00: mouth at [place] 00 bedtime. [facility] amLODIPine 2020-05 Yes [id number] 10mg Take 1 [facility] nivers 10 mg 2-15 tablet by [facility] of tablet 00:00: mouth [place] 00 daily. [facility] allopurinoL 2020-05 Yes [id number] 200mg Take 2 [facility] 100 mg 2-15 tablets by [facility] of tablet 00:00: mouth [place] 00 daily. [facility] nebivoloL 2020-05 Yes [id number] 10mg Take 1 [facility] (BYSTOLIC) 2-15 tablet by [facility] of 10 mg 00:00: mouth [place] tablet 00 daily. [facility] lisinopriL 2020-05 Yes [id number] 40mg Take 1 [facility] nivers 40 mg 2-15 tablet by [facility] of tablet 00:00: mouth [place] 00 daily. [facility] fenofibrate 2020-05 Yes [id number] 200mg Take 1 [facility] micronized 2-15 capsule by [facility] of 200 mg 00:00: mouth [place] capsule 00 daily with Medica [facility] breakfast. [facility] atorvastati 2020-05 Yes [id number] 40mg Take 1 [facility] n 40 mg 2-15 tablet by [facility] of tablet 00:00: mouth at [place] 00 bedtime. [facility] amLODIPine 2020-05 Yes [id number] 10mg Take 1 [facility] nivers 10 mg 2-15 tablet by [facility] of tablet 00:00: mouth [place] 00 daily. [facility] allopurinoL 2020-05 Yes [id number] 200mg Take 2 [facility] 100 mg 2-15 tablets by [facility] of tablet 00:00: mouth [place] 00 daily. [facility] nebivoloL 2020-05 Yes [id number] 10mg Take 1 [facility] (BYSTOLIC) 2-15 tablet by [facility] of 10 mg 00:00: mouth [place] tablet 00 daily. [facility] lisinopriL 2020-05 Yes [id number] 40mg Take 1 [facility] nivers 40 mg 2-15 tablet by [facility] of tablet 00:00: mouth [place] 00 daily. [facility] fenofibrate 2020-05 Yes [id number] 200mg Take 1 [facility] micronized 2-15 capsule by [facility] of 200 mg 00:00: mouth [place] capsule 00 daily with Medica [facility] breakfast. [facility] atorvastati 2020-05 Yes [id number] 40mg Take 1 [facility] n 40 mg 2-15 tablet by [facility] of tablet 00:00: mouth at [place] 00 bedtime. [facility] amLODIPine 2020-05 Yes [id number] 10mg Take 1 [facility] nivers 10 mg 2-15 tablet by [facility] of tablet 00:00: mouth [place] 00 daily. [facility] allopurinoL 2020-05 Yes [id number] 200mg Take 2 [facility] 100 mg 2-15 tablets by [facility] of tablet 00:00: mouth [place] 00 daily. [facility] nebivoloL 2020-05 Yes [id number] 10mg Take 1 [facility] (BYSTOLIC) 2-15 tablet by [facility] of 10 mg 00:00: mouth [place] tablet 00 daily. [facility] lisinopriL 2020-05 Yes [id number] 40mg Take 1 [facility] nivers 40 mg 2-15 tablet by [facility] of tablet 00:00: mouth [place] 00 daily. [facility] fenofibrate 2020-05 Yes [id number] 200mg Take 1 [facility] micronized 2-15 capsule by [facility] of 200 mg 00:00: mouth [place] capsule 00 daily with Medica [facility] breakfast. [facility] atorvastati 2020-05 Yes [id number] 40mg Take 1 [facility] n 40 mg 2-15 tablet by [facility] of tablet 00:00: mouth at [place] 00 bedtime. [facility] amLODIPine 2020-05 Yes [id number] 10mg Take 1 [facility] nivers 10 mg 2-15 tablet by [facility] of tablet 00:00: mouth [place] 00 daily. [facility] allopurinoL 2020-05 Yes [id number] 200mg Take 2 [facility] 100 mg 2-15 tablets by [facility] of tablet 00:00: mouth [place] 00 daily. [facility] nebivoloL 2020-05 Yes [id number] 10mg Take 1 [facility] (BYSTOLIC) 2-15 tablet by [facility] of 10 mg 00:00: mouth [place] tablet 00 daily. [facility] lisinopriL 2020-05 Yes [id number] 40mg Take 1 [facility] nivers 40 mg 2-15 tablet by [facility] of tablet 00:00: mouth [place] 00 daily. [facility] fenofibrate 2020-05 Yes [id number] 200mg Take 1 [facility] micronized 2-15 capsule by [facility] of 200 mg 00:00: mouth [place] capsule 00 daily with Medica [facility] breakfast. [facility] atorvastati 2020-05 Yes [id number] 40mg Take 1 [facility] n 40 mg 2-15 tablet by [facility] of tablet 00:00: mouth at [place] 00 bedtime. [facility] amLODIPine 2020-05 Yes [id number] 10mg Take 1 [facility] nivers 10 mg 2-15 tablet by [facility] of tablet 00:00: mouth [place] 00 daily. [facility] allopurinoL 2020-05 Yes [id number] 200mg Take 2 [facility] 100 mg 2-15 tablets by [facility] of tablet 00:00: mouth [place] 00 daily. [facility] nebivoloL 2020-05 Yes [id number] 10mg Take 1 [facility] (BYSTOLIC) 2-15 tablet by [facility] of 10 mg 00:00: mouth [place] tablet 00 daily. [facility] lisinopriL 2020-05 Yes [id number] 40mg Take 1 [facility] nivers 40 mg 2-15 tablet by [facility] of tablet 00:00: mouth [place] 00 daily. [facility] fenofibrate 2020-05 Yes [id number] 200mg Take 1 [facility] micronized 2-15 capsule by [facility]y of 200 mg 00:00: mouth [place] capsule 00 daily with Medica [facility] breakfast. [facility] atorvastati 2020-05 Yes [id number] 40mg Take 1 [facility] n 40 mg 2-15 tablet by [facility] of tablet 00:00: mouth at [place] 00 bedtime. [facility] amLODIPine 2020-05 Yes [id number] 10mg Take 1 [facility] nivers 10 mg 2-15 tablet by [facility] of tablet 00:00: mouth [place] 00 daily. [facility] allopurinoL 2020-05 Yes [id number] 200mg Take 2 [facility] 100 mg 2-15 tablets by [facility] of tablet 00:00: mouth [place] 00 daily. [facility] nebivoloL 2020-05 Yes [id number] 10mg Take 1 [facility] (BYSTOLIC) 2-15 tablet by [facility]y of 10 mg 00:00: mouth [place] tablet 00 daily. [facility] lisinopriL 2020-05 Yes [id number] 40mg Take 1 [facility] nivers 40 mg 2-15 tablet by [facility] of tablet 00:00: mouth [place] 00 daily. [facility] fenofibrate 2020-05 Yes [id number] 200mg Take 1 [facility] micronized 2-15 capsule by [facility]y of 200 mg 00:00: mouth [place] capsule 00 daily with Medica l breakfast. Branch atorvastati 2020-05 Yes [id number] 40mg Take 1 [facility] n 40 mg 2-15 tablet by [facility] of tablet 00:00: mouth at [place] 00 bedtime. [facility] amLODIPine 2020-05 Yes [id number] 10mg Take 1 [facility] nivers 10 mg 2-15 tablet by [facility] of tablet 00:00: mouth [place] 00 daily. [facility] allopurinoL 2020-05 Yes [id number] 200mg Take 2 [facility] 100 mg 2-15 tablets by [facility] of tablet 00:00: mouth [place] 00 daily. [facility] nebivoloL 2020-05 Yes [id number] 10mg Take 1 [facility] (BYSTOLIC) 2-15 tablet by [facility]y of 10 mg 00:00: mouth [place] tablet 00 daily. [facility] lisinopriL 2020-05 Yes [id number] 40mg Take 1 [facility] nivers 40 mg 2-15 tablet by [facility] of tablet 00:00: mouth [place] 00 daily. [facility] fenofibrate 2020-05 Yes [id number] 200mg Take 1 [facility] micronized 2-15 capsule by [facility]y of 200 mg 00:00: mouth [place] capsule 00 daily with Medica l breakfast. [facility] atorvastati 2020-05 Yes [id number] 40mg Take 1 [facility] n 40 mg 2-15 tablet by [facility] of tablet 00:00: mouth at [place] 00 bedtime. [facility] amLODIPine 2020-05 Yes [id number] 10mg Take 1 [facility] nivers 10 mg 2-15 tablet by [facility] of tablet 00:00: mouth [place] 00 daily. [facility] allopurinoL 2020-05 Yes [id number] 200mg Take 2 [facility] 100 mg 2-15 tablets by [facility] of tablet 00:00: mouth [place] 00 daily. [facility] nebivoloL 2020-05 Yes [id number] 10mg Take 1 [facility] (BYSTOLIC) 2-15 tablet by ity of 10 mg 00:00: mouth [place] tablet 00 daily. [facility] lisinopriL 2020-05 Yes [id number] 40mg Take 1 [facility] nivers 40 mg 2-15 tablet by [facility] of tablet 00:00: mouth [place] 00 daily. [facility] fenofibrate 2020-05 Yes [id number] 200mg Take 1 [facility] micronized 2-15 capsule by [facility]y of 200 mg 00:00: mouth [place] capsule 00 daily with Medica l breakfast. [facility] atorvastati 2020-05 Yes [id number] 40mg Take 1 [facility] n 40 mg 2-15 tablet by [facility] of tablet 00:00: mouth at [place] 00 bedtime. [facility] amLODIPine 2020-05 Yes [id number] 10mg Take 1 [facility] nivers 10 mg 2-15 tablet by [facility] of tablet 00:00: mouth [place] 00 daily. [facility] allopurinoL 2020-05 Yes [id number] 200mg Take 2 [facility] 100 mg 2-15 tablets by [facility] of tablet 00:00: mouth [place] 00 daily. [facility] nebivoloL 2020-05 Yes [id number] 10mg Take 1 [facility] (BYSTOLIC) 2-15 tablet by ity of 10 mg 00:00: mouth [place] tablet 00 daily. [facility] lisinopriL 2020-05 Yes [id number] 40mg Take 1 [facility] nivers 40 mg 2-15 tablet by [facility] of tablet 00:00: mouth [place] 00 daily. [facility] fenofibrate 2020-05 Yes [id number] 200mg Take 1 [facility] micronized 2-15 capsule by [facility]y of 200 mg 00:00: mouth [place] capsule 00 daily with Medica l breakfast. [facility] atorvastati 2020-05 Yes [id number] 40mg Take 1 [facility] n 40 mg 2-15 tablet by [facility] of tablet 00:00: mouth at [place] 00 bedtime. [facility] amLODIPine 2020-05 Yes [id number] 10mg Take 1 [facility] nivers 10 mg 2-15 tablet by [facility] of tablet 00:00: mouth [place] 00 daily. [facility] allopurinoL 2020-05 Yes [id number] 200mg Take 2 [facility] 100 mg 2-15 tablets by [facility] of tablet 00:00: mouth [place] 00 daily. [facility] nebivoloL 2020-05 Yes [id number] 10mg Take 1 [facility] (BYSTOLIC) 2-15 tablet by ity of 10 mg 00:00: mouth [place] tablet 00 daily. [facility] lisinopriL 2020-05 Yes [id number] 40mg Take 1 [facility] nivers 40 mg 2-15 tablet by [facility] of tablet 00:00: mouth [place] 00 daily. [facility] fenofibrate 2020-05 Yes [id number] 200mg Take 1 [facility] micronized 2-15 capsule by ity of 200 mg 00:00: mouth [place] capsule 00 daily with Medica l breakfast. [facility] atorvastati 2020-05 Yes [id number] 40mg Take 1 [facility] n 40 mg 2-15 tablet by [facility]y of tablet 00:00: mouth at [place] 00 bedtime. [facility] amLODIPine 2020-05 Yes [id number] 10mg Take 1 [facility] nivers 10 mg 2-15 tablet by [facility]y of tablet 00:00: mouth [place] 00 daily. [facility] allopurinoL 2020-05 Yes [id number] 200mg Take 2 [facility] 100 mg 2-15 tablets by [facility] of tablet 00:00: mouth [place] 00 daily. [facility] nebivoloL 2020-05 Yes [id number] 10mg Take 1 [facility] (BYSTOLIC) 2-15 tablet by ity of 10 mg 00:00: mouth [place] tablet 00 daily. [facility] lisinopriL 2020-05 Yes [id number] 40mg Take 1 [facility] nivers 40 mg 2-15 tablet by [facility] of tablet 00:00: mouth [place] 00 daily. [facility] fenofibrate 2020-05 Yes [id number] 200mg Take 1 [facility] micronized 2-15 capsule by ity of 200 mg 00:00: mouth [place] capsule 00 daily with Medica l breakfast. Branch atorvastati 2020-05 Yes [id number] 40mg Take 1 [facility] n 40 mg 2-15 tablet by [facility]y of tablet 00:00: mouth at [place] 00 bedtime. [facility] amLODIPine 2020-05 Yes [id number] 10mg Take 1 [facility] nivers 10 mg 2-15 tablet by ity of tablet 00:00: mouth [place] 00 daily. [facility] allopurinoL 2020-05 Yes [id number] 200mg Take 2 [facility] 100 mg 2-15 tablets by [facility] of tablet 00:00: mouth [place] 00 daily. [facility] nebivoloL 2020-05 Yes [id number] 10mg Take 1 [facility] (BYSTOLIC) 2-15 tablet by ity of 10 mg 00:00: mouth [place] tablet 00 daily. [facility] lisinopriL 2020-05 Yes [id number] 40mg Take 1 [facility] nivers 40 mg 2-15 tablet by [facility] of tablet 00:00: mouth [place] 00 daily. [facility] fenofibrate 2020-05 Yes [id number] 200mg Take 1 [facility] micronized 2-15 capsule by [facility]y of 200 mg 00:00: mouth [place] capsule 00 daily with Medica l breakfast. Branch atorvastati 2020-05 Yes [id number] 40mg Take 1 [facility] n 40 mg 2-15 tablet by [facility]y of tablet 00:00: mouth at [place] 00 bedtime. [facility] amLODIPine 2020-05 Yes [id number] 10mg Take 1 [facility] nivers 10 mg 2-15 tablet by [facility] of tablet 00:00: mouth [place] 00 daily. [facility] allopurinoL 2020-05 Yes [id number] 200mg Take 2 [facility] 100 mg 2-15 tablets by [facility] of tablet 00:00: mouth [place] 00 daily. [facility] nebivoloL 2020-05 Yes [id number] 10mg Take 1 [facility] (BYSTOLIC) 2-15 tablet by ity of 10 mg 00:00: mouth [place] tablet 00 daily. [facility] lisinopriL 2020-05 Yes [id number] 40mg Take 1 [facility] nivers 40 mg 2-15 tablet by [facility] of tablet 00:00: mouth [place] 00 daily. [facility] fenofibrate 2020-05 Yes [id number] 200mg Take 1 [facility] micronized 2-15 capsule by ity of 200 mg 00:00: mouth [place] capsule 00 daily with Medica l breakfast. Branch atorvastati 2020-05 Yes [id number] 40mg Take 1 [facility] n 40 mg 2-15 tablet by [facility]y of tablet 00:00: mouth at [place] 00 bedtime. [facility] amLODIPine 2020-05 Yes [id number] 10mg Take 1 [facility] nivers 10 mg 2-15 tablet by [facility] of tablet 00:00: mouth [place] 00 daily. [facility] allopurinoL 2020-05 Yes [id number] 200mg Take 2 [facility] 100 mg 2-15 tablets by [facility] of tablet 00:00: mouth [place] 00 daily. [facility] nebivoloL 2020-05 Yes [id number] 10mg Take 1 [facility] (BYSTOLIC) 2-15 tablet by ity of 10 mg 00:00: mouth [place] tablet 00 daily. [facility] lisinopriL 2020-05 Yes [id number] 40mg Take 1 [facility] nivers 40 mg 2-15 tablet by [facility] of tablet 00:00: mouth [place] 00 daily. [facility] fenofibrate 2020-05 Yes [id number] 200mg Take 1 [facility] micronized 2-15 capsule by ity of 200 mg 00:00: mouth [place] capsule 00 daily with Medica l breakfast. [facility] atorvastati 2020-05 Yes [id number] 40mg Take 1 [facility] n 40 mg 2-15 tablet by [facility]y of tablet 00:00: mouth at [place] 00 bedtime. [facility] amLODIPine 2020-05 Yes [id number] 10mg Take 1 [facility] nivers 10 mg 2-15 tablet by [facility] of tablet 00:00: mouth [place] 00 daily. [facility] allopurinoL 2020-05 Yes [id number] 200mg Take 2 [facility] 100 mg 2-15 tablets by [facility] of tablet 00:00: mouth [place] 00 daily. [facility] nebivoloL 2020-05 Yes [id number] 10mg Take 1 [facility] (BYSTOLIC) 2-15 tablet by ity of 10 mg 00:00: mouth [place] tablet 00 daily. [facility] lisinopriL 2020-05 Yes [id number] 40mg Take 1 [facility] nivers 40 mg 2-15 tablet by [facility] of tablet 00:00: mouth [place] 00 daily. [facility] fenofibrate 2020-05 Yes [id number] 200mg Take 1 [facility] micronized 2-15 capsule by ity of 200 mg 00:00: mouth [place] capsule 00 daily with Medica l breakfast. Branch atorvastati 2020-05 Yes [id number] 40mg Take 1 [facility] n 40 mg 2-15 tablet by [facility]y of tablet 00:00: mouth at [place] 00 bedtime. [facility] amLODIPine 2020-05 Yes [id number] 10mg Take 1 [facility] nivers 10 mg 2-15 tablet by [facility] of tablet 00:00: mouth [place] 00 daily. [facility] allopurinoL 2020-05 Yes [id number] 200mg Take 2 [facility] 100 mg 2-15 tablets by [facility] of tablet 00:00: mouth [place] 00 daily. [facility] nebivoloL 2020-05 Yes [id number] 10mg Take 1 [facility] (BYSTOLIC) 2-15 tablet by ity of 10 mg 00:00: mouth [place] tablet 00 daily. [facility] lisinopriL 2020-05 Yes [id number] 40mg Take 1 [facility] nivers 40 mg 2-15 tablet by [facility] of tablet 00:00: mouth [place] 00 daily. [facility] fenofibrate 2020-05 Yes [id number] 200mg Take 1 [facility] micronized 2-15 capsule by ity of 200 mg 00:00: mouth [place] capsule 00 daily with Medica l breakfast. Branch atorvastati 2020-05 Yes [id number] 40mg Take 1 [facility] n 40 mg 2-15 tablet by ity of tablet 00:00: mouth at [place] 00 bedtime. [facility] amLODIPine 2020-05 Yes [id number] 10mg Take 1 [facility] nivers 10 mg 2-15 tablet by it[facility] of tablet 00:00: mouth [place] 00 daily. [facility] allopurinoL 2020-05 Yes [id number] 200mg Take 2 [facility] 100 mg 2-15 tablets by [facility] of tablet 00:00: mouth [place] 00 daily. [facility] nebivoloL 2020-05 Yes [id number] 10mg Take 1 [facility] (BYSTOLIC) 2-15 tablet by ity of 10 mg 00:00: mouth [place] tablet 00 daily. [facility] lisinopriL 2020-05 Yes [id number] 40mg Take 1 [facility] n[facility] 40 mg 2-15 tablet by [facility] of tablet 00:00: mouth [place] 00 daily. [facility] fenofibrate 2020-05 Yes [id number] 200mg Take 1 [facility] micronized 2-15 capsule by ity of 200 mg 00:00: mouth [place] capsule 00 daily with Medica l breakfast. Branch atorvastati 2020-05 Yes [id number] 40mg Take 1 [facility] n 40 mg 2-15 tablet by it[facility] of tablet 00:00: mouth at [place] 00 bedtime. [facility] amLODIPine 2020-05 Yes [id number] 10mg Take 1 [facility] nivers 10 mg 2-15 tablet by [facility] of tablet 00:00: mouth [place] 00 daily. [facility] allopurinoL 2020-05 Yes [id number] 200mg Take 2 [facility] 100 mg 2-15 tablets by it[facility] of tablet 00:00: mouth [place] 00 daily. [facility] lisinopriL 2020-05 Yes [id number] 40mg Take 1 [facility] n[facility] 40 mg 2-15 tablet by it[facility] of tablet 00:00: mouth [place] 00 daily. [facility] fenofibrate 2020-05 Yes [id number] 200mg Take 1 [facility] micronized 2-15 capsule by ity of 200 mg 00:00: mouth [place] capsule 00 daily with Medica l breakfast. Branch amLODIPine 2020-05 Yes [id number] 10mg Take 1 [facility] nivers 10 mg 2-15 tablet by it[facility] of tablet 00:00: mouth [place] 00 daily. [facility] allopurinoL 2020-05 Yes [id number] 200mg Take 2 [facility] 100 mg 2-15 tablets by ity of tablet 00:00: mouth [place] 00 daily. [facility] lisinopriL 2020-05 Yes [id number] 40mg Take 1 [facility] nivers 40 mg 2-15 tablet by it[facility] of tablet 00:00: mouth [place] 00 daily. [facility] fenofibrate 2020-05 Yes [id number] 200mg Take 1 [facility] micronized 2-15 capsule by ity of 200 mg 00:00: mouth [place] capsule 00 daily with Medica l breakfast. Branch amLODIPine 2020-05 Yes [id number] 10mg Take 1 [facility] nivers 10 mg 2-15 tablet by ity of tablet 00:00: mouth [place] 00 daily. [facility] allopurinoL 2020-05 Yes [id number] 200mg Take 2 [facility] 100 mg 2-15 tablets by ity of tablet 00:00: mouth [place] 00 daily. [facility] lisinopriL 2020-05 Yes [id number] 40mg Take 1 [facility] nivers 40 mg 2-15 tablet by ity of tablet 00:00: mouth [place] 00 daily. [facility] fenofibrate 2020-05 Yes [id number] 200mg Take 1 [facility] micronized 2-15 capsule by ity of 200 mg 00:00: mouth [place] capsule 00 daily with Medica l breakfast. Branch lisinopriL 2020-05 Yes [id number] 40mg Take 1 [facility] nivers 40 mg 2-15 tablet by ity of tablet 00:00: mouth [place] 00 daily. [facility] fenofibrate 2020-05 Yes [id number] 200mg Take 1 [facility] micronized 2-15 capsule by ity of 200 mg 00:00: mouth [place] capsule 00 daily with Medica l breakfast. [place] lisinopriL 2020-05 Yes [id number] 40mg Take 1 U nivers 40 mg 2-15 tablet by ity of tablet 00:00: mouth [place] 00 daily. [facility] fenofibrate 2020-05 Yes [id number] 200mg Take 1 [facility] micronized 2-15 capsule by ity of 200 mg 00:00: mouth [place] capsule 00 daily with Medica l breakfast. Branch lisinopriL 2020-05 Yes [id number] 40mg Take 1 [facility] nivers 40 mg 2-15 tablet by ity of tablet 00:00: mouth [place] 00 daily. [facility] fenofibrate 2020-05 Yes [id number] 200mg Take 1 [facility] micronized 2-15 capsule by ity of 200 mg 00:00: mouth [place] capsule 00 daily with Medica l breakfast. Branch lisinopriL 2020-05 Yes [id number] 40mg Take 1 [facility] nivers 40 mg 2-15 tablet by ity of tablet 00:00: mouth [place] 00 daily. [facility] fenofibrate 2020-05 Yes [id number] 200mg Take 1 [facility] micronized 2-15 capsule by ity of 200 mg 00:00: mouth [place] capsule 00 daily with Medica l breakfast. Branch lisinopriL 2020-05 Yes [id number] 40mg Take 1 [facility] nivers 40 mg 2-15 tablet by ity of tablet 00:00: mouth [place] 00 daily. Medical [place] fenofibrate 2020-05 Yes [id number] 200mg Take 1 [facility] micronized 2-15 capsule by ity of 200 mg 00:00: mouth [place] capsule 00 daily with Medica l breakfast. Branch lisinopriL 2020-05 Yes [id number] 40mg Take 1 [facility] nivers 40 mg 2-15 tablet by ity of tablet 00:00: mouth [place] 00 daily. [facility] fenofibrate 2020-05 Yes [id number] 200mg Take 1 [facility] micronized 2-15 capsule by ity of 200 mg 00:00: mouth [place] capsule 00 daily with Medica l breakfast. Branch lisinopriL 2020-05 Yes [id number] 40mg Take 1 [facility] nivers 40 mg 2-15 tablet by ity of tablet 00:00: mouth [place] 00 daily. [facility] fenofibrate 2020-05 Yes [id number] 200mg Take 1 [facility] micronized 2-15 capsule by ity of 200 mg 00:00: mouth [place] capsule 00 daily with Medica l breakfast. Branch lisinopriL 2020-05 Yes [id number] 40mg Take 1 [facility] nivers 40 mg 2-15 tablet by ity of tablet 00:00: mouth [place] 00 daily. Medical [place] fenofibrate 2020-05 Yes [id number] 200mg Take 1 [facility] micronized 2-15 capsule by ity of 200 mg 00:00: mouth [place] capsule 00 daily with Medica l breakfast. Branch lisinopriL 2020-05 Yes [id number] 40mg Take 1 [facility] nivers 40 mg 2-15 tablet by ity of tablet 00:00: mouth [place] 00 daily. [facility] fenofibrate 2020-05 Yes [id number] 200mg Take 1 [facility] micronized 2-15 capsule by ity of 200 mg 00:00: mouth [place] capsule 00 daily with Medica l breakfast. Branch lisinopriL 2020-05 Yes [id number] 40mg Take 1 [facility] nivers 40 mg 2-15 tablet by ity of tablet 00:00: mouth [place] 00 daily. Medical [place] fenofibrate 2020-05 Yes [id number] 200mg Take 1 [facility] micronized 2-15 capsule by ity of 200 mg 00:00: mouth [place] capsule 00 daily with Medica l breakfast. Branch lisinopriL 2020-05 Yes [id number] 40mg Take 1 [facility] n[facility] 40 mg 2-15 tablet by ity of tablet 00:00: mouth [place] 00 daily. [facility] fenofibrate 2020-05 Yes [id number] 200mg Take 1 [facility] micronized 2-15 capsule by ity of 200 mg 00:00: mouth [place] capsule 00 daily with Medica l breakfast. [facility] lisinopriL 2020-05 Yes [id number] 40mg Take 1 [facility] n[facility] 40 mg 2-15 tablet by ity of tablet 00:00: mouth [place] 00 daily. [facility] fenofibrate 2020-05 Yes [id number] 200mg Take 1 [facility] micronized 2-15 capsule by ity of 200 mg 00:00: mouth [place] capsule 00 daily with Medica l breakfast. Branch lisinopriL 2020-05 Yes [id number] 40mg Take 1 [facility] nivers 40 mg 2-15 tablet by ity of tablet 00:00: mouth [place] 00 daily. [facility] fenofibrate 2020-05 Yes [id number] 200mg Take 1 [facility] micronized 2-15 capsule by ity of 200 mg 00:00: mouth [place] capsule 00 daily with Medica l breakfast. Branch lisinopriL 2020-05 Yes [id number] 40mg Take 1 [facility] nivers 40 mg 2-15 tablet by ity of tablet 00:00: mouth [place] 00 daily. [facility] fenofibrate 2020-05 Yes [id number] 200mg Take 1 [facility] micronized 2-15 capsule by ity of 200 mg 00:00: mouth [place] capsule 00 daily with Medica l breakfast. Branch lisinopriL 2020-05 Yes [id number] 40mg Take 1 [facility] nivers 40 mg 2-15 tablet by ity of tablet 00:00: mouth [place] 00 daily. [facility] fenofibrate 2020-05 Yes [id number] 200mg Take 1 [facility] micronized 2-15 capsule by ity of 200 mg 00:00: mouth [place] capsule 00 daily with Medica l breakfast. Branch lisinopriL 2020-05 Yes [id number] 40mg Take 1 [facility] nivers 40 mg 2-15 tablet by ity of tablet 00:00: mouth [place] 00 daily. [facility] fenofibrate 2020-05 Yes [id number] 200mg Take 1 [facility] micronized 2-15 capsule by ity of 200 mg 00:00: mouth [place] capsule 00 daily with Medica l breakfast. Branch lisinopriL 2020-05 Yes [id number] 40mg Take 1 [facility] 40 mg 2-15 tablet by ity of tablet 00:00: mouth [place] 00 daily. Medical [facility] fenofibrate 2020-05 Yes [id number] 200mg Take 1 [facility] micronized 2-15 capsule by ity of 200 mg 00:00: mouth [place] capsule 00 daily with Medica l breakfast. Branch lisinopriL 2020-05 Yes [id number] 40mg Take 1 [facility] 40 mg 2-15 tablet by ity of tablet 00:00: mouth [place] 00 daily. [facility] fenofibrate 2020-05 Yes [id number] 200mg Take 1 [facility] micronized 2-15 capsule by ity of 200 mg 00:00: mouth [place] capsule 00 daily with Medica l breakfast. Branch lisinopriL 2020-05 Yes [id number] 40mg Take 1 [facility] 40 mg 2-15 tablet by ity of tablet 00:00: mouth [place] 00 daily. Medical [facility] fenofibrate 2020-05 Yes [id number] 200mg Take 1 [facility] micronized 2-15 capsule by ity of 200 mg 00:00: mouth [place] capsule 00 daily with Medica l breakfast. Branch lisinopriL 2020-05 Yes [id number] 40mg Take 1 [facility] 40 mg 2-15 tablet by ity of tablet 00:00: mouth [place] 00 daily. [facility] fenofibrate 2020-05 Yes [id number] 200mg Take 1 [facility] micronized 2-15 capsule by ity of 200 mg 00:00: mouth [place] capsule 00 daily with Medica l breakfast. Branch fenofibrate 2020-05 Yes [id number] 200mg Take 1 [facility] micronized 2-15 capsule by ity of 200 mg 00:00: mouth [place] capsule 00 daily with Medica l breakfast. Branch fenofibrate 2020-05 Yes [id number] 200mg Take 1 [facility] micronized 2-15 capsule by ity of 200 mg 00:00: mouth [place] capsule 00 daily with Medica l breakfast. Branch fenofibrate 2020-05 Yes [id number] 200mg Take 1 [facility] micronized 2-15 capsule by ity of 200 mg 00:00: mouth [place] capsule 00 daily with Medica l breakfast. Branch fenofibrate 2020-05 Yes [id number] 200mg Take 1 [facility] micronized 2-15 capsule by ity of 200 mg 00:00: mouth [place] capsule 00 daily with Medica l breakfast. Branch fenofibrate 2020-05 Yes [id number] 200mg Take 1 [facility] micronized 2-15 capsule by ity of 200 mg 00:00: mouth [place] capsule 00 daily with Medica l breakfast. Branch fenofibrate 2020-05 Yes [id number] 200mg Take 1 [facility] micronized 2-15 capsule by ity of 200 mg 00:00: mouth [place] capsule 00 daily with Medica l breakfast. Branch fenofibrate 2020-05 Yes [id number] 200mg Take 1 [facility] micronized 2-15 capsule by ity of 200 mg 00:00: mouth [place] capsule 00 daily with Medica l breakfast. Branch fenofibrate 2020-05 Yes [id number] 200mg Take 1 [facility] micronized 2-15 capsule by ity of 200 mg 00:00: mouth [place] capsule 00 daily with Medica l breakfast. Branch fenofibrate 2020-05 Yes [id number] 200mg Take 1 [facility] micronized 2-15 capsule by ity of 200 mg 00:00: mouth [place] capsule 00 daily with Medica l breakfast. Branch fenofibrate 2020-05 Yes [id number] 200mg Take 1 [facility] micronized 2-15 capsule by ity of 200 mg 00:00: mouth [place] capsule 00 daily with Medica l breakfast. Branch fenofibrate 2020-05 Yes [id number] 200mg Take 1 [facility] micronized 2-15 capsule by ity of 200 mg 00:00: mouth [place] capsule 00 daily with Medica l breakfast. Branch fenofibrate 2020-05 Yes [id number] 200mg Take 1 [facility] micronized 2-15 capsule by ity of 200 mg 00:00: mouth [place] capsule 00 daily with Medica l breakfast. Branch fenofibrate 2020-05 Yes [id number] 200mg Take 1 [facility] micronized 2-15 capsule by ity of 200 mg 00:00: mouth [place] capsule 00 daily with Medica l breakfast. Branch fenofibrate 2020-05 Yes [id number] 200mg Take 1 [facility] micronized 2-15 capsule by ity of 200 mg 00:00: mouth [place] capsule 00 daily with Medica l breakfast. Branch fenofibrate 2020-05 Yes [id number] 200mg Take 1 [facility] micronized 2-15 capsule by ity of 200 mg 00:00: mouth [place] capsule 00 daily with Medica l breakfast. Branch fenofibrate 2020-05 Yes [id number] 200mg Take 1 [facility] micronized 2-15 capsule by ity of 200 mg 00:00: mouth [place] capsule 00 daily with Medica l breakfast. Branch fenofibrate 2020-05 Yes [id number] 200mg Take 1 [facility] micronized 2-15 capsule by ity of 200 mg 00:00: mouth [place] capsule 00 daily with Medica l breakfast. Branch fenofibrate 2020-05 Yes [id number] 200mg Take 1 [facility] micronized 2-15 capsule by ity of 200 mg 00:00: mouth [place] capsule 00 daily with Medica l breakfast. Branch fenofibrate 2020-05- No [id number] 200mg Take 1 [facility] micronized 2-15 07-05 capsule by it y of 200 mg 00:00: 00:00 mouth [place] capsule 00 :00 daily with Medica l breakfast. Branch fenofibrate 2020-05- No [id number] 200mg Take 1 [facility] micronized 2-15 -05 capsule by it y of 200 mg 00:00: 00:00 mouth [place] capsule 00 :00 daily with Medica l breakfast. Branch lisinopriL 2020-05- No [id number] 40mg Take 1 [facility] 40 mg 2-15 08-26 tablet by ity of tablet 00:00: 00:00 mouth [place] 00 :00 daily. Medical [facility] amLODIPine 2020-05- No [id number] 10mg Take 1 [facility] 10 mg 2-15 - tablet by ity of tablet 00:00: 00:00 mouth [place] 00 :00 daily. Medical [facility] allopurinoL 2020-05- No [id number] 200mg Take 2 [facility] 100 mg 2-15 -20 tablets by ity of tablet 00:00: 00:00 mouth [place] 00 :00 daily. Medical [facility] nebivoloL 2020-05- No [id number] 10mg Take 1 [facility] (BYSTOLIC) 2-15 05-18 tablet by ity of 10 mg 00:00: 00:00 mouth [place] tablet 00 :00 daily. [facility] atorvastati 2020-05- No [id number] 40mg Take 1 [facility] n 40 mg 2-15 05-18 tablet by ity of tablet 00:00: 00:00 mouth at [place] 00 :00 bedtime. Medical [facility] insulin 2020-05 Yes [id number] 80U inject 80 [facility] n[facility] degludec 2-01 Units ity of (TRESIBA 00:00: [place] FLEXTOUCH 00 skin 2 [facility] U-200) 200 (two) Branch unit/mL (3 times mL) InPn daily. insulin 2020-05 Yes [id number] 80U inject 80 [facility] degludec 2-01 Units ity of (TRESIBA 00:00: [place] FLEXTOUCH 00 skin 2 [facility] U-200) 200 (two) Branch unit/mL (3 times mL) InPn daily. insulin 2020-05 Yes [id number] 80U inject 80 [facility] degludec 2-01 Units ity of (TRESIBA 00:00: [place] FLEXTOUCH 00 skin 2 [facility] U-200) 200 (two) Branch unit/mL (3 times mL) InPn daily. insulin 2020-05 Yes [id number] 80U inject 80 [facility] degludec 2-01 Units ity of (TRESIBA 00:00: [place] FLEXTOUCH 00 skin 2 [facility] U-200) 200 (two) Branch unit/mL (3 times mL) InPn daily. insulin 2020-05 Yes [id number] 80U inject 80 [facility] degludec 2-01 Units ity of (TRESIBA 00:00: [place] FLEXTOUCH 00 skin 2 [facility] U-200) 200 (two) Branch unit/mL (3 times mL) InPn daily. insulin 2020-05 Yes [id number] 80U inject 80 [facility] n[facility] degludec 2-01 Units ity of (TRESIBA 00:00: [place] FLEXTOUCH 00 skin 2 [facility] U-200) 200 (two) Branch unit/mL (3 times mL) InPn daily. insulin 2020-05 Yes [id number] 80U inject 80 [facility] degludec 2-01 Units ity of (TRESIBA 00:00: [place] FLEXTOUCH 00 skin 2 [facility] U-200) 200 (two) Branch unit/mL (3 times mL) InPn daily. insulin 2020-05 Yes [id number] 80U inject 80 [facility] degludec 2-01 Units ity of (TRESIBA 00:00: [place] FLEXTOUCH 00 skin 2 [facility] U-200) 200 (two) Branch unit/mL (3 times mL) InPn daily. insulin 2020-05 Yes [id number] 80U inject 80 [facility] degludec 2-01 Units ity of (TRESIBA 00:00: [place] FLEXTOUCH 00 skin 2 [facility] U-200) 200 (two) Branch unit/mL (3 times mL) InPn daily. insulin 2020-05 Yes [id number] 80U inject 80 [facility] degludec 2-01 Units ity of (TRESIBA 00:00: [place] FLEXTOUCH 00 skin 2 [facility] U-200) 200 (two) Branch unit/mL (3 times mL) InPn daily. insulin 2020-05 Yes [id number] 80U inject 80 [facility] degludec 2-01 Units ity of (TRESIBA 00:00: [place] FLEXTOUCH 00 skin 2 [facility] U-200) 200 (two) Branch unit/mL (3 times mL) InPn daily. insulin 2020-05 Yes [id number] 80U inject 80 [facility] degludec 2-01 Units ity of (TRESIBA 00:00: [place] FLEXTOUCH 00 skin 2 [facility] U-200) 200 (two) Branch unit/mL (3 times mL) InPn daily. insulin 2020-05 Yes [id number] 80U inject 80 [facility] degludec 2-01 Units ity of (TRESIBA 00:00: [place] FLEXTOUCH 00 skin 2 [facility] U-200) 200 (two) Branch unit/mL (3 times mL) InPn daily. insulin 2020-05 Yes [id number] 80U inject 80 [facility] degludec 2-01 Units ity of (TRESIBA 00:00: [place] FLEXTOUCH 00 skin 2 [facility] U-200) 200 (two) Branch unit/mL (3 times mL) InPn daily. insulin 2020-05 Yes [id number] 80U inject 80 [facility] degludec 2-01 Units ity of (TRESIBA 00:00: [place] FLEXTOUCH 00 skin 2 [facility] U-200) 200 (two) Branch unit/mL (3 times mL) InPn daily. insulin 2020-05 Yes [id number] 80U inject 80 [facility] degludec 2-01 Units ity of (TRESIBA 00:00: [place] FLEXTOUCH 00 skin 2 [facility] U-200) 200 (two) Branch unit/mL (3 times mL) InPn daily. insulin 2020-05 Yes [id number] 80U inject 80 [facility] n[facility] degludec 2-01 Units ity of (TRESIBA 00:00: [place] FLEXTOUCH 00 skin 2 [facility] U-200) 200 (two) Branch unit/mL (3 times mL) InPn daily. insulin 2020-05 Yes [id number] 80U inject 80 [facility] n[facility] degludec 2-01 Units ity of (TRESIBA 00:00: [place] FLEXTOUCH 00 skin 2 [facility] U-200) 200 (two) Branch unit/mL (3 times mL) InPn daily. insulin 2020-05 Yes [id number] 80U inject 80 [facility] n[facility] degludec 2-01 Units ity of (TRESIBA 00:00: [place] FLEXTOUCH 00 skin 2 [facility] U-200) 200 (two) Branch unit/mL (3 times mL) InPn daily. insulin 2020-05 Yes [id number] 80U inject 80 [facility] n[facility] degludec 2-01 Units ity of (TRESIBA 00:00: [place] FLEXTOUCH 00 skin 2 [facility] U-200) 200 (two) Branch unit/mL (3 times mL) InPn daily. insulin 2020-05 Yes [id number] 80U inject 80 [facility] n[facility] degludec 2-01 Units ity of (TRESIBA 00:00: under [place] FLEXTOUCH 00 skin 2 [facility] U-200) 200 (two) Branch unit/mL (3 times mL) InPn daily. insulin 2020-05 Yes [id number] 80U inject 80 [facility] n[facility] degludec 2-01 Units ity of (TRESIBA 00:00: under [place] FLEXTOUCH 00 skin 2 [facility] U-200) 200 (two) Branch unit/mL (3 times mL) InPn daily. insulin 2020-05 Yes [id number] 80U inject 80 [facility] n[facility] degludec 2-01 Units ity of (TRESIBA 00:00: [place] FLEXTOUCH 00 skin 2 [facility] U-200) 200 (two) Branch unit/mL (3 times mL) InPn daily. insulin 2020-05 Yes [id number] 80U inject 80 [facility] n[facility] degludec 2-01 Units ity of (TRESIBA 00:00: under [place] FLEXTOUCH 00 skin 2 [facility] U-200) 200 (two) Branch unit/mL (3 times mL) InPn daily. insulin 2020-05 Yes [id number] 80U inject 80 [facility] n[facility] degludec 2-01 Units ity of (TRESIBA 00:00: under [place] FLEXTOUCH 00 skin 2 [facility] U-200) 200 (two) Branch unit/mL (3 times mL) InPn daily. insulin 2020-05 Yes [id number] 80U inject 80 [facility] degludec 2-01 Units ity of (TRESIBA 00:00: under [place] FLEXTOUCH 00 skin 2 [facility] U-200) 200 (two) Branch unit/mL (3 times mL) InPn daily. insulin 2020-05 Yes [id number] 80U inject 80 [facility] n[facility] degludec 2-01 Units ity of (TRESIBA 00:00: under [place] FLEXTOUCH 00 skin 2 [facility] U-200) 200 (two) Branch unit/mL (3 times mL) InPn daily. insulin 2020-05 Yes [id number] 80U inject 80 [facility] n[facility] degludec 2-01 Units ity of (TRESIBA 00:00: under [place] FLEXTOUCH 00 skin 2 [facility] U-200) 200 (two) Branch unit/mL (3 times mL) InPn daily. insulin 2020-05 Yes [id number] 80U inject 80 [facility] n[facility] degludec 2-01 Units ity of (TRESIBA 00:00: [place] FLEXTOUCH 00 skin 2 [facility] U-200) 200 (two) Branch unit/mL (3 times mL) InPn daily. insulin 2020-05 Yes [id number] 80U inject 80 [facility] n[facility] degludec 2-01 Units ity of (TRESIBA 00:00: [place] FLEXTOUCH 00 skin 2 [facility] U-200) 200 (two) Branch unit/mL (3 times mL) InPn daily. insulin 2020-05 Yes [id number] 80U inject 80 [facility] n[facility] degludec 2-01 Units ity of (TRESIBA 00:00: [place] FLE[place]OUCH 00 skin 2 [facility] U-200) 200 (two) Branch unit/mL (3 times mL) InPn daily. insulin 2020-05- No [id number] 80U inject 80 [facility] degludec - 03-02 Units ity of (TRESIBA 00:00: 00:00 under the [place] FLEXTOUCH 00 :00 skin 2 Medical U-200) 200 (two) Branch unit/mL (3 times mL) InPn daily. insulin 2020-05- No [id number] 80U inject 80 [facility] degludec 06-17 03-02 Units ity of (TRESIBA 00:00: 00:00 under the [place] FLEXTOUCH 00 :00 skin 2 Medical U-200) 200 (two) Branch unit/mL (3 times mL) InPn daily. insulin 2020-05- No [id number] 80U inject 80 [facility] degludec - 03-02 Units ity of (TRESIBA 00:00: 00:00 under the [place] FLEXTOUCH 00 :00 skin 2 Medical U-200) 200 (two) Branch unit/mL (3 times mL) InPn daily. insulin 2020-05- No [id number] 80U inject 80 [facility] degludec - 03-02 Units ity of (TRESIBA 00:00: 00:00 under the [place] FLEXTOUCH 00 :00 skin 2 [facility] U-200) 200 (two) Branch unit/mL (3 times mL) InPn daily. insulin 2020-05- No [id number] 80U inject 80 [facility] degludec - 03-02 Units ity of (TRESIBA 00:00: 00:00 under the [place] FLEXTOUCH 00 :00 skin 2 [facility] U-200) 200 (two) Branch unit/mL (3 times mL) InPn daily. Insulin Yes [id number] USE THREE [facility] [place], 8-31 TIMES A ity of Disposable, 00:00: [place] (TRENA PEN 00 DIRECTED Medica l NEEDLE) 32 Branch gauge x 5/32" Ndle Insulin Yes [id number] USE THREE [facility] [place], 8-31 TIMES A ity of Disposable, 00:00: [place] (TRE[place] PEN 00 DIRECTED Medica l NEEDLE) 32 Branch gauge x 5/32" Ndle Insulin Yes [id number] USE THREE [facility] [place], 8-31 TIMES A ity of Disposable, 00:00: [place] (TRE[place] PEN 00 DIRECTED Medica l NEEDLE) 32 Branch gauge x 5/32" Ndle Insulin Yes [id number] USE THREE [facility] [place], 8-31 TIMES A ity of Disposable, 00:00: [place] (TRE[place] PEN 00 DIRECTED Medica l NEEDLE) 32 Branch gauge x 5/32" Ndle Insulin Yes [id number] USE THREE [facility] [place], 8-31 TIMES A ity of Disposable, 00:00: [place] (TRE[place] PEN 00 DIRECTED Medica l NEEDLE) 32 Branch gauge x 5/32" Ndle Insulin Yes [id number] USE THREE [facility] [place], 8-31 TIMES A ity of Disposable, 00:00: [place] (TRE[place] PEN 00 DIRECTED Medica l NEEDLE) 32 Branch gauge x 5/32" Ndle Insulin Yes [id number] USE THREE [facility] [place], 8-31 TIMES A ity of Disposable, 00:00: [place] (TRE[place] PEN 00 DIRECTED Medica l NEEDLE) 32 Branch gauge x 5/32" Ndle Insulin Yes [id number] USE THREE [facility] [place], 8-31 TIMES A ity of Disposable, 00:00: [place] (TRE[place] PEN 00 DIRECTED Medica l NEEDLE) 32 Branch gauge x 5/32" Ndle Insulin Yes [id number] USE THREE [facility] [place], 8-31 TIMES A ity of Disposable, 00:00: [place] (TRE[place] PEN 00 DIRECTED Medica l NEEDLE) 32 Branch gauge x 5/32" Ndle Insulin 2020-0 Yes [id number] USE THREE [facility] [place], 8-31 TIMES A ity of Disposable, 00:00: [place] (TRENA PEN 00 DIRECTED Medica l NEEDLE) 32 Branch gauge x 5/32" Ndle Insulin 0 Yes [id number] USE THREE [facility] [place], 8-31 TIMES A ity of Disposable, 00:00: [place] (TRENA PEN 00 DIRECTED Medica l NEEDLE) 32 Branch gauge x 5/32" Ndle Insulin 0 Yes [id number] USE THREE [facility] [place], 8-31 TIMES A ity of Disposable, 00:00: [place] (TRENA PEN 00 DIRECTED Medica l NEEDLE) 32 Branch gauge x 5/32" Ndle Insulin 0 Yes [id number] USE THREE [facility] [place], 8-31 TIMES A ity of Disposable, 00:00: [place] (TRENA PEN 00 DIRECTED Medica l NEEDLE) 32 Branch gauge x 5/32" Ndle Insulin 0 Yes [id number] USE THREE [facility] [place], 8-31 TIMES A ity of Disposable, 00:00: [place] (TRENA PEN 00 DIRECTED Medica l NEEDLE) 32 Branch gauge x 5/32" Ndle Insulin 0 Yes [id number] USE THREE [facility] [place], 8-31 TIMES A ity of Disposable, 00:00: [place] (TRENA PEN 00 DIRECTED Medica l NEEDLE) 32 Branch gauge x 5/32" Ndle Insulin 2020-0 Yes [id number] USE THREE [facility] [place], 8-31 TIMES A ity of Disposable, 00:00: [place] (TRENA PEN 00 DIRECTED Medica l NEEDLE) 32 Branch gauge x 5/32" Ndle Insulin 0 Yes [id number] USE THREE [facility] [place], 8-31 TIMES A ity of Disposable, 00:00: [place] (TRENA PEN 00 DIRECTED Medica l NEEDLE) 32 Branch gauge x 5/32" Ndle Insulin 0 Yes [id number] USE THREE [facility] [place], 8-31 TIMES A ity of Disposable, 00:00: [place] (TRE[place] PEN 00 DIRECTED Medica l NEEDLE) 32 Branch gauge x 5/32" Ndle Insulin 2020-0 Yes [id number] USE THREE [facility] [place], 8-31 TIMES A ity of Disposable, 00:00: [place] (TRENA PEN 00 DIRECTED Medica l NEEDLE) 32 Branch gauge x 5/32" Ndle Insulin 2020-0 Yes [id number] USE THREE [facility] [place], 8-31 TIMES A ity of Disposable, 00:00: [place] (TRENA PEN 00 DIRECTED Medica l NEEDLE) 32 Branch gauge x 5/32" Ndle Insulin 0 Yes [id number] USE THREE [facility] [place], 8-31 TIMES A ity of Disposable, 00:00: [place] (TRENA PEN 00 DIRECTED Medica l NEEDLE) 32 Branch gauge x 5/32" Ndle Insulin 0 Yes [id number] USE THREE [facility] [place], 8-31 TIMES A ity of Disposable, 00:00: [place] (TRENA PEN 00 DIRECTED Medica l NEEDLE) 32 Branch gauge x 5/32" Ndle Insulin 0 Yes [id number] USE THREE [facility] [place], 8-31 TIMES A ity of Disposable, 00:00: [place] (TRENA PEN 00 DIRECTED Medica l NEEDLE) 32 Branch gauge x 5/32" Ndle Insulin 2020-0 Yes [id number] USE THREE [facility] [place], 8-31 TIMES A ity of Disposable, 00:00: [place] (TRENA PEN 00 DIRECTED Medica l NEEDLE) 32 Branch gauge x 5/32" Ndle Insulin 2020-0 Yes [id number] USE THREE [facility] [place], 8-31 TIMES A ity of Disposable, 00:00: [place] (TRENA PEN 00 DIRECTED Medica l NEEDLE) 32 Branch gauge x 5/32" Ndle Insulin 2020-0 Yes [id number] USE THREE [facility] [place], 8-31 TIMES A ity of Disposable, 00:00: [place] (TRE[place] PEN 00 DIRECTED Medica l NEEDLE) 32 Branch gauge x 5/32" Ndle Insulin 0 Yes [id number] USE THREE [facility] [place], 8-31 TIMES A ity of Disposable, 00:00: [place] (TRE[place] PEN 00 DIRECTED Medica l NEEDLE) 32 Branch gauge x 5/32" Ndle Insulin 2020-0 Yes [id number] USE THREE [facility] [place], 8-31 TIMES A ity of Disposable, 00:00: [place] (TRENA PEN 00 DIRECTED Medica l NEEDLE) 32 Branch gauge x 5/32" Ndle Insulin 2020-0 Yes [id number] USE THREE [facility] [place], 8-31 TIMES A ity of Disposable, 00:00: DAY [place] (TRENA PEN 00 DIRECTED Medica l NEEDLE) 32 Branch gauge x 5/32" Ndle Insulin 0 Yes [id number] USE THREE [facility] [place], 8-31 TIMES A ity of Disposable, 00:00: DAY [place] (TRE[place] PEN 00 DIRECTED Medica l NEEDLE) 32 Branch gauge x 5/32" Ndle Insulin 0 Yes [id number] USE THREE [facility] [place], 8-31 TIMES A ity of Disposable, 00:00: [place] (TRE[place] PEN 00 DIRECTED Medica l NEEDLE) 32 Branch gauge x 5/32" Ndle Insulin 2020-0 Yes [id number] USE THREE [facility] [place], 8-31 TIMES A ity of Disposable, 00:00: [place] (TRE[place] PEN 00 DIRECTED Medica l NEEDLE) 32 Branch gauge x 5/32" Ndle Insulin 2020-0 Yes [id number] USE THREE [facility] [place], 8-31 TIMES A ity of Disposable, 00:00: DAY [place] (TRENA PEN 00 DIRECTED Medica l NEEDLE) 32 Branch gauge x 5/32" Ndle Insulin 2020-0 Yes [id number] USE THREE [facility] [place], 8-31 TIMES A ity of Disposable, 00:00: DAY [place] (TRENA PEN 00 DIRECTED Medica l NEEDLE) 32 Branch gauge x 5/32" Ndle Insulin 2020-0 Yes [id number] USE THREE [facility] [place], 8-31 TIMES A ity of Disposable, 00:00: [place] (TRE[place] PEN 00 DIRECTED Medica l NEEDLE) 32 Branch gauge x 5/32" Ndle Insulin 0 Yes [id number] USE THREE [facility] [place], 8-31 TIMES A ity of Disposable, 00:00: [place] (TRE[place] PEN 00 DIRECTED Medica l NEEDLE) 32 Branch gauge x 5/32" Ndle Insulin 0 Yes [id number] USE THREE [facility] [place], 8-31 TIMES A ity of Disposable, 00:00: [place] (TRENA PEN 00 DIRECTED Medica l NEEDLE) 32 Branch gauge x 5/32" Ndle Insulin 0 Yes [id number] USE THREE [facility] [place], 8-31 TIMES A ity of Disposable, 00:00: DAY [place] (TRENA PEN 00 DIRECTED Medica l NEEDLE) 32 Branch gauge x 5/32" Ndle Insulin Yes [id number] USE THREE [facility] [place], 8-31 TIMES A ity of Disposable, 00:00: DAY [place] (TRENA PEN 00 DIRECTED Medica l NEEDLE) 32 Branch gauge x 5/32" Ndle Insulin Yes [id number] USE THREE [facility] [place], 8-31 TIMES A ity of Disposable, 00:00: DAY [place] (TRE[place] PEN 00 DIRECTED Medica l NEEDLE) 32 Branch gauge x 5/32" Ndle Insulin Yes [id number] USE THREE [facility] [place], 8-31 TIMES A ity of Disposable, 00:00: [place] (TRENA PEN 00 DIRECTED Medica l NEEDLE) 32 Branch gauge x 5/32" Ndle Insulin Yes [id number] USE THREE [facility] [place], 8-31 TIMES A ity of Disposable, 00:00: DAY [place] (TRENA PEN 00 DIRECTED Medica l NEEDLE) 32 Branch gauge x 5/32" Ndle Insulin Yes [id number] USE THREE [facility] [place], 8-31 TIMES A ity of Disposable, 00:00: [place] (TRENA PEN 00 DIRECTED Medica l NEEDLE) 32 Branch gauge x 5/32" Ndle Insulin 0 Yes [id number] USE THREE [facility] [place], 8-31 TIMES A ity of Disposable, 00:00: [place] (TRENA PEN 00 DIRECTED Medica l NEEDLE) 32 Branch gauge x 5/32" Ndle Insulin 0 Yes [id number] USE THREE [facility] [place], 8-31 TIMES A ity of Disposable, 00:00: DAY [place] (TRENA PEN 00 DIRECTED Medica l NEEDLE) 32 Branch gauge x 5/32" Ndle Insulin 2021-0 Yes [id number] USE THREE [facility] [place], 8-31 TIMES A ity of Disposable, 00:00: DAY [place] (TRENA PEN 00 DIRECTED Medica l NEEDLE) 32 Branch gauge x 5/32" Ndle Insulin 0 Yes [id number] USE THREE [facility] [place], 8-31 TIMES A ity of Disposable, 00:00: DAY [place] (TRENA PEN 00 DIRECTED Medica l NEEDLE) 32 Branch gauge x 5/32" Ndle Insulin 0 Yes [id number] USE THREE [facility] [place], 8-31 TIMES A ity of Disposable, 00:00: DAY [place] (TRENA PEN 00 DIRECTED Medica l NEEDLE) 32 Branch gauge x 5/32" Ndle Insulin 0 Yes [id number] USE THREE [facility] [place], 8-31 TIMES A ity of Disposable, 00:00: DAY [place] (TRENA PEN 00 DIRECTED Medica l NEEDLE) 32 Branch gauge x 5/32" Ndle Insulin 0 Yes [id number] USE THREE [facility] [place], 8-31 TIMES A ity of Disposable, 00:00: DAY [place] (TRENA PEN 00 DIRECTED Medica l NEEDLE) 32 Branch gauge x 5/32" Ndle Insulin 0 Yes [id number] USE THREE [facility] [place], 8-31 TIMES A ity of Disposable, 00:00: DAY [place] (TRENA PEN 00 DIRECTED Medica l NEEDLE) 32 Branch gauge x 5/32" Ndle Insulin 0 Yes [id number] USE THREE [facility] [place], 8-31 TIMES A ity of Disposable, 00:00: DAY [place] (TRENA PEN 00 DIRECTED Medica l NEEDLE) 32 Branch gauge x 5/32" Ndle Insulin 0 Yes [id number] USE THREE [facility] [place], 8-31 TIMES A ity of Disposable, 00:00: DAY [place] (TRE[place] PEN 00 DIRECTED Medica l NEEDLE) 32 Branch gauge x 5/32" Ndle Insulin 0 Yes [id number] USE THREE [facility] [place], 8-31 TIMES A ity of Disposable, 00:00: DAY [place] (TRENA PEN 00 DIRECTED Medica l NEEDLE) 32 Branch gauge x 5/32" Ndle Insulin 0 Yes [id number] USE THREE [facility] [place], 8-31 TIMES A ity of Disposable, 00:00: DAY [place] (TRENA PEN 00 DIRECTED Medica l NEEDLE) 32 Branch gauge x 5/32" Ndle Insulin 0 Yes [id number] USE THREE [facility] [place], 8-31 TIMES A ity of Disposable, 00:00: DAY [place] (TRENA PEN 00 DIRECTED Medica l NEEDLE) 32 Branch gauge x 5/32" Ndle Insulin 0 Yes [id number] USE THREE [facility] [place], 8-31 TIMES A ity of Disposable, 00:00: DAY [place] (TRENA PEN 00 DIRECTED Medica l NEEDLE) 32 Branch gauge x 5/32" Ndle Insulin Yes [id number] USE THREE [facility] [place], 8-31 TIMES A ity of Disposable, 00:00: DAY [place] (TRENA PEN 00 DIRECTED Medica l NEEDLE) 32 Branch gauge x 5/32" Ndle Insulin Yes [id number] USE THREE [facility] [place], 8-31 TIMES A ity of Disposable, 00:00: DAY [place] (TRENA PEN 00 DIRECTED Medica l NEEDLE) 32 Branch gauge x 5/32" Ndle Insulin Yes [id number] USE THREE [facility] [place], 8-31 TIMES A ity of Disposable, 00:00: DAY [place] (TRENA PEN 00 DIRECTED Medica l NEEDLE) 32 Branch gauge x 5/32" Ndle Insulin 0 Yes [id number] USE THREE [facility] [place], 8-31 TIMES A ity of Disposable, 00:00: DAY [place] (TRENA PEN 00 DIRECTED Medica l NEEDLE) 32 Branch gauge x 5/32" Ndle Insulin 0 Yes [id number] USE THREE [facility] [place], 8-31 TIMES A ity of Disposable, 00:00: DAY [place] (TRENA PEN 00 DIRECTED Medica l NEEDLE) 32 Branch gauge x 5/32" Ndle Insulin 0 Yes [id number] USE THREE [facility] [place], 8-31 TIMES A ity of Disposable, 00:00: DAY [place] (TRENA PEN 00 DIRECTED Medica l NEEDLE) 32 Branch gauge x 5/32" Ndle Insulin 0 Yes [id number] USE THREE [facility] [place], 8-31 TIMES A ity of Disposable, 00:00: DAY [place] (TRENA PEN 00 DIRECTED Medica l NEEDLE) 32 Branch gauge x 5/32" Ndle Insulin Yes [id number] USE THREE [facility] [place], 8-31 TIMES A ity of Disposable, 00:00: DAY [place] (TRENA PEN 00 DIRECTED Medica l NEEDLE) 32 Branch gauge x 5/32" Ndle Insulin Yes [id number] USE THREE [facility] [place], 8-31 TIMES A ity of Disposable, 00:00: DAY [place] (TRENA PEN 00 DIRECTED Medica l NEEDLE) 32 Branch gauge x 5/32" Ndle Insulin Yes [id number] USE THREE U nivers [place], 8-31 TIMES A ity of Disposable, 00:[place]TRENA PEN 00 DIRECTED Medica l NEEDLE) 32 Branch gauge x 5/32" Ndle Insulin Yes [id number] USE THREE U nivers [place], 8-31 TIMES A ity of Disposable, 00:00: [place] (TRENA PEN 00 DIRECTED Medica l NEEDLE) 32 Branch gauge x 5/32" Ndle needles, Yes [facility] insulin 6- ity of disposable 15:31: [place] (BD [facility] Medical ULTRAFINE Branch ORIG PEN NEEDLES MISC) needles, Yes [facility] insulin 6- ity of disposable 15:31: [place] (BD 35 Medical ULTRAFINE Branch ORIG PEN NEEDLES MISC) needles, Yes [facility] insulin 6-01 ity of disposable 15:31: [place] (BD 35 Medical ULTRAFINE Branch ORIG PEN NEEDLES MISC) needles, Yes [facility] insulin 6-01 ity of disposable 15:31: [place] (BD 35 Medical ULTRAFINE Branch ORIG PEN NEEDLES MISC) needles, Yes [facility] insulin 6-01 ity of disposable 15:31: [place] (BD 35 Medical ULTRAFINE Branch ORIG PEN NEEDLES MISC) needles, Yes [facility] insulin 6- ity of disposable 15:31: [place] (BD 35 Medical ULTRAFINE Branch ORIG PEN NEEDLES MISC) needles, Yes [facility] insulin 6- ity of disposable 15:31: [place] (BD 35 Medical ULTRAFINE Branch ORIG PEN NEEDLES MISC) needles, Yes [facility] insulin 6-01 ity of disposable 15:31: [place] (BD 35 Medical ULTRAFINE Branch ORIG PEN NEEDLES MISC) needles, Yes [facility] insulin 6-01 ity of disposable 15:31: [place] (BD 35 Medical ULTRAFINE Branch ORIG PEN NEEDLES MISC) needles, Yes [facility] insulin 6-01 ity of disposable 15:31: [place] (BD 35 Medical ULTRAFINE Branch ORIG PEN NEEDLES MISC) needles, Yes [facility] insulin 6-01 ity of disposable 15:31: [place] (BD 35 Medical ULTRAFINE Branch ORIG PEN NEEDLES MISC) needles, Yes [facility] insulin 6-01 ity of disposable 15:31: [place] (BD 35 Medical ULTRAFINE Branch ORIG PEN NEEDLES MISC) needles, Yes [facility] insulin 6-01 ity of disposable 15:31: [place] (BD 35 Medical ULTRAFINE Branch ORIG PEN NEEDLES MISC) needles, Yes [facility] insulin 6-01 ity of disposable 15:31: [place] (BD 35 Medical ULTRAFINE Branch ORIG PEN NEEDLES MISC) needles, Yes [facility] insulin 6-01 ity of disposable 15:31: [place] (BD 35 Medical ULTRAFINE Branch ORIG PEN NEEDLES MISC) needles, Yes [facility] insulin 6-01 ity of disposable 15:31: [place] (BD 35 Medical ULTRAFINE Branch ORIG PEN NEEDLES MISC) needles, Yes [facility] insulin 6-01 ity of disposable 15:31: [place] (BD 35 Medical ULTRAFINE Branch ORIG PEN NEEDLES MISC) needles, Yes [facility] insulin 6-01 ity of disposable 15:31: [place] (BD 35 Medical ULTRAFINE Branch ORIG PEN NEEDLES MISC) needles, Yes [facility] insulin 6-01 ity of disposable 15:31: [place] (BD 35 Medical ULTRAFINE Branch ORIG PEN NEEDLES MISC) needles, Yes [facility] insulin 6-01 ity of disposable 15:31: [place] (BD 35 Medical ULTRAFINE Branch ORIG PEN NEEDLES MISC) needles, Yes [facility] insulin 6-01 ity of disposable 15:31: [place] (BD 35 Medical ULTRAFINE Branch ORIG PEN NEEDLES MISC) needles, Yes [facility] insulin 6-01 ity of disposable 15:31: [place] (BD 35 Medical ULTRAFINE Branch ORIG PEN NEEDLES MISC) needles, Yes [facility] insulin 6-01 ity of disposable 15:31: [place] (BD 35 Medical ULTRAFINE Branch ORIG PEN NEEDLES MISC) needles, Yes [facility] insulin 6-01 ity of disposable 15:31: [place] (BD 35 Medical ULTRAFINE Branch ORIG PEN NEEDLES MISC) needles, Yes [facility] insulin 6-01 ity of disposable 15:31: [place] (BD 35 Medical ULTRAFINE Branch ORIG PEN NEEDLES MISC) needles, Yes [facility] insulin 6-01 ity of disposable 15:31: [place] (BD 35 Medical ULTRAFINE Branch ORIG PEN NEEDLES MISC) needles, Yes [facility] insulin 6-01 ity of disposable 15:31: [place] (BD 35 Medical ULTRAFINE Branch ORIG PEN NEEDLES MISC) needles, Yes [facility] insulin 6-01 ity of disposable 15:31: [place] (BD 35 Medical ULTRAFINE Branch ORIG PEN NEEDLES MISC) needles, Yes [facility] insulin 6-01 ity of disposable 15:31: [place] (BD 35 Medical ULTRAFINE Branch ORIG PEN NEEDLES MISC) needles, Yes [facility] insulin 6-01 ity of disposable 15:31: [place] (BD 35 Medical ULTRAFINE Branch ORIG PEN NEEDLES MISC) needles, Yes [facility] insulin 6-01 ity of disposable 15:31: [place] (BD 35 Medical ULTRAFINE Branch ORIG PEN NEEDLES MISC) needles, Yes [facility] insulin 6-01 ity of disposable 15:31: [place] (BD 35 Medical ULTRAFINE Branch ORIG PEN NEEDLES MISC) needles, Yes [facility] insulin 6-01 ity of disposable 15:31: [place] (BD 35 Medical ULTRAFINE Branch ORIG PEN NEEDLES MISC) needles, Yes [facility] insulin 6-01 ity of disposable 15:31: [place] (BD 35 Medical ULTRAFINE Branch ORIG PEN NEEDLES MISC) needles, Yes [facility] insulin 6-01 ity of disposable 15:31: [place] (BD 35 Medical ULTRAFINE Branch ORIG PEN NEEDLES MISC) needles, Yes [facility] insulin 6-01 ity of disposable 15:31: [place] (BD 35 Medical ULTRAFINE Branch ORIG PEN NEEDLES MISC) needles, Yes [facility] insulin 6-01 ity of disposable 15:31: [place] (BD 35 Medical ULTRAFINE Branch ORIG PEN NEEDLES MISC) needles, Yes [facility] insulin 6-01 ity of disposable 15:31: [place] (BD 35 Medical ULTRAFINE Branch ORIG PEN NEEDLES MISC) needles, Yes [facility] insulin 6-01 ity of disposable 15:31: [place] (BD 35 Medical ULTRAFINE Branch ORIG PEN NEEDLES MISC) needles, Yes [facility] insulin 6-01 ity of disposable 15:31: [place] (BD 35 Medical ULTRAFINE Branch ORIG PEN NEEDLES MISC) needles, Yes [facility] insulin 6-01 ity of disposable 15:31: [place] (BD 35 Medical ULTRAFINE Branch ORIG PEN NEEDLES MISC) needles, Yes [facility] insulin 6-01 ity of disposable 15:31: [place] (BD 35 Medical ULTRAFINE Branch ORIG PEN NEEDLES MISC) needles, Yes [facility] insulin 6-01 ity of disposable 15:31: [place] (BD 35 Medical ULTRAFINE Branch ORIG PEN NEEDLES MISC) needles, Yes [facility] insulin 6-01 ity of disposable 15:31: [place] (BD 35 Medical ULTRAFINE Branch ORIG PEN NEEDLES MISC) needles, Yes [facility] insulin 6-01 ity of disposable 15:31: [place] (BD 35 Medical ULTRAFINE Branch ORIG PEN NEEDLES MISC) needles, Yes [facility] insulin 6-01 ity of disposable 15:31: [place] (BD 35 Medical ULTRAFINE Branch ORIG PEN NEEDLES MISC) needles, Yes [facility] insulin 6-01 ity of disposable 15:31: [place] (BD 35 Medical ULTRAFINE Branch ORIG PEN NEEDLES MISC) needles, Yes [facility] insulin 6-01 ity of disposable 15:31: [place] (BD 35 Medical ULTRAFINE Branch ORIG PEN NEEDLES MISC) needles, Yes [facility] insulin 6-01 ity of disposable 15:31: [place] (BD 35 Medical ULTRAFINE Branch ORIG PEN NEEDLES MISC) needles, Yes [facility] insulin 6-01 ity of disposable 15:31: [place] (BD 35 Medical ULTRAFINE Branch ORIG PEN NEEDLES MISC) needles, Yes [facility] insulin 6-01 ity of disposable 15:31: [place] (BD 35 Medical ULTRAFINE Branch ORIG PEN NEEDLES MISC) needles, 2021-0 Yes [facility] insulin 6-01 ity of disposable 15:31: [place] (BD 35 Medical ULTRAFINE Branch ORIG PEN NEEDLES MISC) needles, Yes [facility] insulin 6-01 ity of disposable 15:31: [place] (BD 35 Medical ULTRAFINE Branch ORIG PEN NEEDLES MISC) needles, Yes [facility] insulin 6-01 ity of disposable 15:31: [place] (BD 35 Medical ULTRAFINE Branch ORIG PEN NEEDLES MISC) needles, Yes [facility] insulin 6-01 ity of disposable 15:31: [place] (BD 35 Medical ULTRAFINE Branch ORIG PEN NEEDLES MISC) needles, Yes [facility] insulin 6-01 ity of disposable 15:31: [place] (BD 35 Medical ULTRAFINE Branch ORIG PEN NEEDLES MISC) needles, Yes [facility] insulin 6-01 ity of disposable 15:31: [place] (BD 35 Medical ULTRAFINE Branch ORIG PEN NEEDLES MISC) needles, Yes [facility] insulin 6-01 ity of disposable 15:31: [place] (BD 35 Medical ULTRAFINE Branch ORIG PEN NEEDLES MISC) needles, Yes [facility] insulin 6-01 ity of disposable 15:31: [place] (BD 35 Medical ULTRAFINE Branch ORIG PEN NEEDLES MISC) needles, Yes [facility] insulin 6-01 ity of disposable 15:31: [place] (BD 35 Medical ULTRAFINE Branch ORIG PEN NEEDLES MISC) needles, Yes [facility] insulin 6-01 ity of disposable 15:31: [place] (BD 35 Medical ULTRAFINE Branch ORIG PEN NEEDLES MISC) needles, Yes [facility] insulin 6-01 ity of disposable 15:31: [place] (BD 35 Medical ULTRAFINE Branch ORIG PEN NEEDLES MISC) needles, Yes [facility] insulin 6-01 ity of disposable 15:31: [place] (BD 35 Medical ULTRAFINE Branch ORIG PEN NEEDLES MISC) needles, Yes [facility] insulin 6-01 ity of disposable 15:31: [place] (BD 35 Medical ULTRAFINE Branch ORIG PEN NEEDLES MISC) needles, Yes [facility] insulin 6-01 ity of disposable 15:31: [place] (BD 35 Medical ULTRAFINE Branch ORIG PEN NEEDLES MISC) needles, Yes [facility] insulin 6-01 ity of disposable 15:31: [place] (BD 35 Medical ULTRAFINE Branch ORIG PEN NEEDLES MISC) needles, Yes [facility] insulin 6-01 ity of disposable 15:31: [place] (BD 35 Medical ULTRAFINE Branch ORIG PEN NEEDLES MISC) needles, Yes [facility] insulin 6-01 ity of disposable 15:31: [place] (BD 35 Medical ULTRAFINE Branch ORIG PEN NEEDLES MISC) Immunizations Ordered Filled Immunization Date Status Comments Sourc e Immunization Name Name SARS-COV-2 COVID-19 2020-08-03 Completed Un[facility] of PFIZER VACCINE 00:00:00 [facility] SARS-COV-2 COVID-19 2020-08-03 Completed [facility] of PFIZER VACCINE 00:00:00 [facility] SARS-COV-2 COVID-19 2020-08-03 Completed [facility] of PFIZER VACCINE 00:00:00 [facility] SARS-COV-2 COVID-19 2020-08-03 Completed [facility] of PFIZER VACCINE 00:00:00 [facility] SARS-COV-2 COVID-19 2020-08-03 Completed [facility] of PFIZER VACCINE 00:00:00 [facility] SARS-COV-2 COVID-19 2020-08-03 Completed [facility] of PFIZER VACCINE 00:00:00 [facility] SARS-COV-2 COVID-19 2020-08-03 Completed [facility] of PFIZER VACCINE 00:00:00 [facility] SARS-COV-2 COVID-19 2020-08-03 Completed [facility] of PFIZER VACCINE 00:00:00 [facility] SARS-COV-2 COVID-19 2020-08-03 Completed [facility] of PFIZER VACCINE 00:00:00 [facility] SARS-COV-2 COVID-19 2020-08-03 Completed [facility] of PFIZER VACCINE 00:00:00 [facility] SARS-COV-2 COVID-19 2020-08-03 Completed [facility] of PFIZER VACCINE 00:00:00 [facility] SARS-COV-2 COVID-19 2020-08-03 Completed [facility] of PFIZER VACCINE 00:00:00 [facility] SARS-COV-2 COVID-19 2020-08-03 Completed Unive rsity of PFIZER VACCINE 00:00:00 [facility] SARS-COV-2 COVID-19 2020-08-03 Completed [facility] of PFIZER VACCINE 00:00:00 [facility] SARS-COV-2 COVID-19 2020-08-03 Completed [facility] rs[facility] of PFIZER VACCINE 00:00:00 [facility] SARS-COV-2 COVID-19 2020-08-03 Completed [facility] rs[facility] of PFIZER VACCINE 00:00:00 [facility] SARS-COV-2 COVID-19 2020-08-03 Completed [facility] of PFIZER VACCINE 00:00:00 [facility] SARS-COV-2 COVID-19 2020-08-03 Completed [facility] of PFIZER VACCINE 00:00:00 [facility] SARS-COV-2 COVID-19 2020-08-03 Completed [facility] of PFIZER VACCINE 00:00:00 [facility] SARS-COV-2 COVID-19 2020-08-03 Completed [facility] of PFIZER VACCINE 00:00:00 [facility] SARS-COV-2 COVID-19 2020-08-03 Completed [facility] of PFIZER VACCINE 00:00:00 [facility] SARS-COV-2 COVID-19 2020-08-03 Completed [facility] of PFIZER VACCINE 00:00:00 [facility] SARS-COV-2 COVID-19 2020-08-03 Completed [facility] of PFIZER VACCINE 00:00:00 [facility] SARS-COV-2 COVID-19 2020-08-03 Completed [facility] rs[facility] of PFIZER VACCINE 00:00:00 [facility] SARS-COV-2 COVID-19 2020-08-03 Completed [facility]ive rs[facility] of PFIZER VACCINE 00:00:00 [facility] SARS-COV-2 COVID-19 2020-08-03 Completed [facility] of PFIZER VACCINE 00:00:00 [facility] SARS-COV-2 COVID-19 2020-08-03 Completed [facility] of PFIZER VACCINE 00:00:00 [facility] SARS-COV-2 COVID-19 2020-08-03 Completed [facility] of PFIZER VACCINE 00:00:00 [facility] SARS-COV-2 COVID-19 2020-08-03 Completed [facility] of PFIZER VACCINE 00:00:00 [facility] SARS-COV-2 COVID-19 2020-08-03 Completed Unive [facility] of PFIZER VACCINE 00:00:00 [place] [facility] SARS-COV-2 COVID-19 2020-08-03 Completed Unive rsity of PFIZER VACCINE 00:00:00 [facility] SARS-COV-2 COVID-19 2020-08-03 Completed [facility] of PFIZER VACCINE 00:00:00 [facility] SARS-COV-2 COVID-19 2020-08-03 Completed [facility] of PFIZER VACCINE 00:00:00 [facility] SARS-COV-2 COVID-19 2020-08-03 Completed [facility] of PFIZER VACCINE 00:00:00 [facility] SARS-COV-2 COVID-19 2020-08-03 Completed [facility] rs[facility] of PFIZER VACCINE 00:00:00 [facility] SARS-COV-2 COVID-19 2020-08-03 Completed [facility] of PFIZER VACCINE 00:00:00 [facility] SARS-COV-2 COVID-19 2020-08-03 Completed [facility] of PFIZER VACCINE 00:00:00 [facility] SARS-COV-2 COVID-19 2020-08-03 Completed [facility] of PFIZER VACCINE 00:00:00 [facility] SARS-COV-2 COVID-19 2020-08-03 Completed [facility] of PFIZER VACCINE 00:00:00 [facility] SARS-COV-2 COVID-19 2020-08-03 Completed [facility] of PFIZER VACCINE 00:00:00 [facility] SARS-COV-2 COVID-19 2020-08-03 Completed [facility] of PFIZER VACCINE 00:00:00 [facility] SARS-COV-2 COVID-19 2020-08-03 Completed [facility] of PFIZER VACCINE 00:00:00 [facility] SARS-COV-2 COVID-19 2020-08-03 Completed [facility] of PFIZER VACCINE 00:00:00 [facility] SARS-COV-2 COVID-19 2020-08-03 Completed [facility] of PFIZER VACCINE 00:00:00 [facility] SARS-COV-2 COVID-19 2020-08-03 Completed [facility] of PFIZER VACCINE 00:00:00 [facility] SARS-COV-2 COVID-19 2020-08-03 Completed [facility] of PFIZER VACCINE 00:00:00 [facility] SARS-COV-2 COVID-19 2020-08-03 Completed [facility] of PFIZER VACCINE 00:00:00 [facility] SARS-COV-2 COVID-19 2020-08-03 Completed [facility] of PFIZER VACCINE 00:00:00 [facility] SARS-COV-2 COVID-19 2020-08-03 Completed [facility] of PFIZER VACCINE 00:00:00 [facility] SARS-COV-2 COVID-19 2020-08-03 Completed [facility] of PFIZER VACCINE 00:00:00 [facility] SARS-COV-2 COVID-19 2020-08-03 Completed [facility]ive [facility] of PFIZER VACCINE 00:00:00 [facility] SARS-COV-2 COVID-19 2020-08-03 Completed [facility] of PFIZER VACCINE 00:00:00 [facility] SARS-COV-2 COVID-19 2020-08-03 Completed [facility] rs[facility] of PFIZER VACCINE 00:00:00 [facility] SARS-COV-2 COVID-19 2020-08-03 Completed [facility] of PFIZER VACCINE 00:00:00 [facility] SARS-COV-2 COVID-19 2020-08-03 Completed [facility]ive rs[facility] of PFIZER VACCINE 00:00:00 [facility] SARS-COV-2 COVID-19 2020-08-03 Completed [facility]ive rs[facility] of PFIZER VACCINE 00:00:00 [facility] SARS-COV-2 COVID-19 2020-08-03 Completed [facility]ive rs[facility] of PFIZER VACCINE 00:00:00 [facility] SARS-COV-2 COVID-19 2020-08-03 Completed [facility] of PFIZER VACCINE 00:00:00 [facility] SARS-COV-2 COVID-19 2020-08-03 Completed [facility] of PFIZER VACCINE 00:00:00 [facility] SARS-COV-2 COVID-19 2020-08-03 Completed [facility] of PFIZER VACCINE 00:00:00 [facility] SARS-COV-2 COVID-19 2020-08-03 Completed Unive rs[facility] of PFIZER VACCINE 00:00:00 [facility] SARS-COV-2 COVID-19 2020-08-03 Completed [facility]ive rs[facility] of PFIZER VACCINE 00:00:00 [facility] SARS-COV-2 COVID-19 2020-08-03 Completed Unive rs[facility] of PFIZER VACCINE 00:00:00 [facility] SARS-COV-2 COVID-19 2020-08-03 Completed Unive [facility] of PFIZER VACCINE 00:00:00 [facility] SARS-COV-2 COVID-19 2020-08-03 Completed Unive [facility] of PFIZER VACCINE 00:00:00 [facility] SARS-COV-2 COVID-19 2020-08-03 Completed [facility]ive [facility] of PFIZER VACCINE 00:00:00 [facility] SARS-COV-2 COVID-19 2020-08-03 Completed [facility] of PFIZER VACCINE 00:00:00 [facility] SARS-COV-2 COVID-19 2020-08-03 Completed Un[facility] of PFIZER VACCINE 00:00:00 [facility] SARS-COV-2 COVID-19 2020-07-13 Completed [facility] of PFIZER VACCINE 00:00:00 [facility] SARS-COV-2 COVID-19 2020-07-13 Completed Unive rs[facility] of PFIZER VACCINE 00:00:00 [facility] SARS-COV-2 COVID-19 2020-07-13 Completed [facility] of PFIZER VACCINE 00:00:00 [facility] SARS-COV-2 COVID-19 2020-07-13 Completed [facility] of PFIZER VACCINE 00:00:00 [facility] SARS-COV-2 COVID-19 2020-07-13 Completed [facility]ive [facility] of PFIZER VACCINE 00:00:00 [facility] SARS-COV-2 COVID-19 2020-07-13 Completed Unive rs[facility] of PFIZER VACCINE 00:00:00 [facility] SARS-COV-2 COVID-19 2020-07-13 Completed Unive [facility] of PFIZER VACCINE 00:00:00 [facility] SARS-COV-2 COVID-19 2020-07-13 Completed [facility]ive [facility] of PFIZER VACCINE 00:00:00 [facility] SARS-COV-2 COVID-19 2020-07-13 Completed Un[facility] of PFIZER VACCINE 00:00:00 [facility] SARS-COV-2 COVID-19 2020-07-13 Completed Unive [facility] of PFIZER VACCINE 00:00:00 [facility] SARS-COV-2 COVID-19 2020-07-13 Completed Unive [facility] of PFIZER VACCINE 00:00:00 [facility] SARS-COV-2 COVID-19 2020-07-13 Completed Unive rs[facility] of PFIZER VACCINE 00:00:00 [facility] SARS-COV-2 COVID-19 2020-07-13 Completed Unive [facility] of PFIZER VACCINE 00:00:00 [facility] SARS-COV-2 COVID-19 2020-07-13 Completed Unive rs[facility] of PFIZER VACCINE 00:00:00 [facility] SARS-COV-2 COVID-19 2020-07-13 Completed Unive rsity of PFIZER VACCINE 00:00:00 [facility] SARS-COV-2 COVID-19 2020-07-13 Completed Unive rs[facility] of PFIZER VACCINE 00:00:00 [facility] SARS-COV-2 COVID-19 2020-07-13 Completed [facility] of PFIZER VACCINE 00:00:00 [facility] SARS-COV-2 COVID-19 2020-07-13 Completed Unive rs[facility] of PFIZER VACCINE 00:00:00 [facility] SARS-COV-2 COVID-19 2020-07-13 Completed Unive [facility] of PFIZER VACCINE 00:00:00 [facility] SARS-COV-2 COVID-19 2020-07-13 Completed Unive [facility] of PFIZER VACCINE 00:00:00 [facility] SARS-COV-2 COVID-19 2020-07-13 Completed [facility] of PFIZER VACCINE 00:00:00 [facility] SARS-COV-2 COVID-19 2020-07-13 Completed Un[facility] of PFIZER VACCINE 00:00:00 [facility] SARS-COV-2 COVID-19 2020-07-13 Completed Unive rsity of PFIZER VACCINE 00:00:00 [facility] SARS-COV-2 COVID-19 2020-07-13 Completed Unive rsity of PFIZER VACCINE 00:00:00 [facility] SARS-COV-2 COVID-19 2020-07-13 Completed Unive rsity of PFIZER VACCINE 00:00:00 [facility] SARS-COV-2 COVID-19 2020-07-13 Completed Unive rs[facility] of PFIZER VACCINE 00:00:00 [facility] SARS-COV-2 COVID-19 2020-07-13 Completed Unive [facility] of PFIZER VACCINE 00:00:00 [facility] SARS-COV-2 COVID-19 2020-07-13 Completed Unive rsity of PFIZER VACCINE 00:00:00 [facility] SARS-COV-2 COVID-19 2020-07-13 Completed Unive rs[facility] of PFIZER VACCINE 00:00:00 [facility] SARS-COV-2 COVID-19 2020-07-13 Completed Unive rs[facility] of PFIZER VACCINE 00:00:00 [facility] SARS-COV-2 COVID-19 2020-07-13 Completed Unive rs[facility] of PFIZER VACCINE 00:00:00 [facility] SARS-COV-2 COVID-19 2020-07-13 Completed Unive rsity of PFIZER VACCINE 00:00:00 [facility] SARS-COV-2 COVID-19 2020-07-13 Completed Unive rs[facility] of PFIZER VACCINE 00:00:00 [facility] SARS-COV-2 COVID-19 2020-07-13 Completed Unive rsity of PFIZER VACCINE 00:00:00 [facility] SARS-COV-2 COVID-19 2020-07-13 Completed Unive rsity of PFIZER VACCINE 00:00:00 [facility] SARS-COV-2 COVID-19 2020-07-13 Completed Unive rsity of PFIZER VACCINE 00:00:00 [facility] SARS-COV-2 COVID-19 2020-07-13 Completed Unive rsity of PFIZER VACCINE 00:00:00 [facility] SARS-COV-2 COVID-19 2020-07-13 Completed Unive rsity of PFIZER VACCINE 00:00:00 [facility] SARS-COV-2 COVID-19 2020-07-13 Completed Unive rs[facility] of PFIZER VACCINE 00:00:00 [facility] SARS-COV-2 COVID-19 2020-07-13 Completed [facility] of PFIZER VACCINE 00:00:00 [facility] SARS-COV-2 COVID-19 2020-07-13 Completed Unive rsity of PFIZER VACCINE 00:00:00 [facility] SARS-COV-2 COVID-19 2020-07-13 Completed Unive rs[facility] of PFIZER VACCINE 00:00:00 [facility] SARS-COV-2 COVID-19 2020-07-13 Completed Unive rsity of PFIZER VACCINE 00:00:00 [facility] SARS-COV-2 COVID-19 2020-07-13 Completed Unive rs[facility] of PFIZER VACCINE 00:00:00 [facility] SARS-COV-2 COVID-19 2020-07-13 Completed Unive rsity of PFIZER VACCINE 00:00:00 [facility] SARS-COV-2 COVID-19 2020-07-13 Completed Unive rsity of PFIZER VACCINE 00:00:00 [facility] SARS-COV-2 COVID-19 2020-07-13 Completed Unive rs[facility] of PFIZER VACCINE 00:00:00 [facility] SARS-COV-2 COVID-19 2020-07-13 Completed Unive rsity of PFIZER VACCINE 00:00:00 [facility] SARS-COV-2 COVID-19 2020-07-13 Completed Unive rsity of PFIZER VACCINE 00:00:00 [facility] SARS-COV-2 COVID-19 2020-07-13 Completed Unive [facility] of PFIZER VACCINE 00:00:00 [facility] SARS-COV-2 COVID-19 2020-07-13 Completed Unive rsity of PFIZER VACCINE 00:00:00 [facility] SARS-COV-2 COVID-19 2020-07-13 Completed Unive rs[facility] of PFIZER VACCINE 00:00:00 [facility] SARS-COV-2 COVID-19 2020-07-13 Completed Unive rsity of PFIZER VACCINE 00:00:00 [facility] SARS-COV-2 COVID-19 2020-07-13 Completed Unive rsity of PFIZER VACCINE 00:00:00 [facility] SARS-COV-2 COVID-19 2020-07-13 Completed Unive rsity of PFIZER VACCINE 00:00:00 [facility] SARS-COV-2 COVID-19 2020-07-13 Completed Unive rsity of PFIZER VACCINE 00:00:00 [facility] SARS-COV-2 COVID-19 2020-07-13 Completed Unive rsity of PFIZER VACCINE 00:00:00 [facility] SARS-COV-2 COVID-19 2020-07-13 Completed Unive rsity of PFIZER VACCINE 00:00:00 [facility] SARS-COV-2 COVID-19 2020-07-13 Completed Unive rsity of PFIZER VACCINE 00:00:00 [facility] SARS-COV-2 COVID-19 2020-07-13 Completed Unive [facility] of PFIZER VACCINE 00:00:00 [facility] SARS-COV-2 COVID-19 2020-07-13 Completed Unive rsity of PFIZER VACCINE 00:00:00 [facility] SARS-COV-2 COVID-19 2020-07-13 Completed Unive rsity of PFIZER VACCINE 00:00:00 [facility] SARS-COV-2 COVID-19 2020-07-13 Completed Unive rsity of PFIZER VACCINE 00:00:00 [facility] SARS-COV-2 COVID-19 2020-07-13 Completed Unive rsity of PFIZER VACCINE 00:00:00 [facility] SARS-COV-2 COVID-19 2020-07-13 Completed Unive rsity of PFIZER VACCINE 00:00:00 [facility] SARS-COV-2 COVID-19 2020-07-13 Completed Unive rsity of PFIZER VACCINE 00:00:00 [facility] SARS-COV-2 COVID-19 2020-07-13 Completed Unive rsity of PFIZER VACCINE 00:00:00 [facility] SARS-COV-2 COVID-19 2020-07-13 Completed Unive rsity of PFIZER VACCINE 00:00:00 [facility] Vital Signs Vital Name Observation Time Observation Value Comments Source Systolic blood 2022-11-26 18:55:00 137 mm[Hg] Univer sity of pressure [facility] Diastolic blood 2022-11-26 18:55:00 85 mm[Hg] Unive rsity of pressure [facility] Heart rate 2022-11-26 18:55:00 98 /min [facility] Respiratory rate 2022-11-26 18:55:00 18 /min Univ [facility] Body height 2022-11-26 18:55:00 180.3 cm [facility] Body weight 2022-11-26 18:55:00 95.482 kg [facility] [place] [facility] BMI 2022-11-26 18:55:00 29.36 kg/m2 [facility] Oxygen saturation in 2022-11-26 18:55:00 96 /min University of Arterial blood by [place] [facility] Pulse oximetry Branch Systolic blood 2022-11-18 15:57:00 108 mm[Hg] Univer sity of pressure [facility] Diastolic blood 2022-11-18 15:57:00 75 mm[Hg] Unive rsity of pressure [facility] Heart rate 2022-11-18 15:57:00 97 /min [facility] Body height 2022-11-18 15:57:00 180.3 cm [facility] Body weight 2022-11-18 15:57:00 96.843 kg [facility] [place] [facility] BMI 2022-11-18 15:57:00 29.78 kg/m2 [facility] [place] [facility] Oxygen saturation in 2022-11-18 15:57:00 97 /min University of Arterial blood by [facility] matt Pulse oximetry Branch Systolic blood 2022-10-05 18:11:00 127 mm[Hg] Univer sity of pressure [facility] Diastolic blood 2022-10-05 18:11:00 70 mm[Hg] Unive rsity of pressure [facility] Heart rate 2022-10-05 18:11:00 83 /min [facility] [place] [facility] Respiratory rate 2022-10-05 18:11:00 16 /min Univ [facility] [place] [facility] Body height 2022-10-05 18:11:00 180.3 cm [facility] [place] [facility] Body weight 2022-10-05 18:11:00 101.515 kg [facility] [place] [facility] BMI 2022-10-05 18:11:00 31.21 kg/m2 [facility] Oxygen saturation in 2022-10-05 18:11:00 96 /min University of Arterial blood by [facility] matt Pulse oximetry Branch Systolic blood 2022-09-09 13:45:00 113 mm[Hg] Univer sity of pressure [facility] Diastolic blood 2022-09-09 13:45:00 77 mm[Hg] Unive rsity of pressure [facility] Heart rate 2022-09-09 13:45:00 97 /min [facility] [place] [facility] Body height 2022-09-09 13:45:00 180.3 cm [facility] Body weight 2022-09-09 13:45:00 92.897 kg [facility] BMI 2022-09-09 13:45:00 28.56 kg/m2 [facility] Oxygen saturation in 2022-09-09 13:45:00 94 /min University of Arterial blood by [facility] Pulse oximetry Branch Body weight 2022-08-05 15:34:00 102.785 kg [facility] BMI 2022-08-05 15:34:00 31.60 kg/m2 [facility] Systolic blood 2022-08-02 03:00:00 152 mm[Hg] Univer sity of pressure [facility] Diastolic blood 2022-08-02 03:00:00 127 mm[Hg] Unive rsity of pressure [facility] Heart rate 2022-08-02 03:00:00 72 /min [facility] [place] [facility] Respiratory rate 2022-08-02 03:00:00 17 /min Univ [facility] [place] [facility] Oxygen saturation in 2022-08-02 03:00:00 96 /min University of Arterial blood by [facility] matt Pulse oximetry Branch Body temperature 2022-08-01 23:07:00 36.61 Sumi Univ [facility] [place] [facility] Body height 2022-08-01 23:07:00 180.3 cm [facility] [place] [facility] Body weight 2022-08-01 23:07:00 104.327 kg [facility] [place] [facility] BMI 2022-08-01 23:07:00 32.08 kg/m2 [facility] Systolic blood 2022-07-16 15:38:00 146 mm[Hg] Univer sity of pressure [facility] Diastolic blood 2022-07-16 15:38:00 85 mm[Hg] Unive rsity of pressure [facility] Heart rate 2022-07-16 15:35:00 91 /min [facility] Body weight 2022-07-16 15:35:00 102.377 kg [facility] BMI 2022-07-16 15:35:00 31.48 kg/m2 Universi ty of [facility] Oxygen saturation in 2022-07-16 15:35:00 97 /min University of Arterial blood by [facility] Pulse oximetry Branch Systolic blood 2022-07-13 16:41:00 161 mm[Hg] Univer sity of pressure [facility] Diastolic blood 2022-07-13 16:41:00 88 mm[Hg] Unive rsity of pressure [facility] Heart rate 2022-07-13 16:41:00 80 /min [facility] Body height 2022-07-13 16:35:00 180.3 cm [facility] Body weight 2022-07-13 16:35:00 103.375 kg [facility] BMI 2022-07-13 16:35:00 31.79 kg/m2 [facility] Body weight 2022-06-08 16:26:00 98.975 kg [facility] BMI 2022-06-08 16:26:00 30.43 kg/m2 [facility] Body weight 2022-05-08 18:09:00 101.152 kg [facility] BMI 2022-05-08 18:09:00 31.10 kg/m2 [facility] [place] [facility] Systolic blood 2022-04-23 19:23:00 135 mm[Hg] Univer sity of pressure [facility] Diastolic blood 2022-04-23 19:23:00 85 mm[Hg] Unive rsity of pressure [facility] Heart rate 2022-04-23 19:23:00 107 /min [facility] [place] [facility] Body height 2022-04-23 19:23:00 180.3 cm [facility] [place] [facility] Body weight 2022-04-23 19:23:00 102.74 kg [facility] [place] [facility] BMI 2022-04-23 19:23:00 31.59 kg/m2 [facility] Oxygen saturation in 2022-04-23 19:23:00 98 /min [facility] [place] by [place] [facility] Pulse oximetry Branch Systolic blood 2022-04-16 20:36:00 135 mm[Hg] Univer sity of pressure [facility] Diastolic blood 2022-04-16 20:36:00 84 mm[Hg] Unive rsity of pressure [facility] Heart rate 2022-04-16 20:36:00 81 /min [facility] Body height 2022-04-16 20:36:00 180.3 cm [facility] [place] [facility] Body weight 2022-04-16 20:36:00 102.967 kg [facility] BMI 2022-04-16 20:36:00 31.66 kg/m2 [facility] Oxygen saturation in 2022-04-16 20:36:00 100 /min University of Arterial blood by [facility] Pulse oximetry Branch Systolic blood 2022-04-16 20:08:00 135 mm[Hg] Univer sity of pressure [facility] Diastolic blood 2022-04-16 20:08:00 84 mm[Hg] Unive rsity of pressure [facility] Heart rate 2022-04-16 20:08:00 81 /min [facility] Body temperature 2022-04-16 20:08:00 35.89 Sumi [facility] [place] [facility] Respiratory rate 2022-04-16 20:08:00 18 /min [facility] [place] [facility] Body height 2022-04-16 20:08:00 180.3 cm [facility] Body weight 2022-04-16 20:08:00 102.967 kg [facility] BMI 2022-04-16 20:08:00 31.66 kg/m2 [facility] Oxygen saturation in 2022-04-16 20:08:00 100 /min [facility] [place] by [place] [facility] Pulse oximetry Branch Body weight 2022-04-08 17:36:00 105.96 kg [facility] [place] [facility] BMI 2022-04-08 17:36:00 32.58 kg/m2 [facility] Body weight 2022-03-11 13:48:00 110.768 kg [facility] BMI 2022-03-11 13:48:00 34.06 kg/m2 [facility] Systolic blood 2022-02-23 01:15:00 125 mm[Hg] Univer sity of pressure [facility] Diastolic blood 2022-02-23 01:15:00 66 mm[Hg] Unive rsity of pressure [facility] Heart rate 2022-02-23 01:15:00 75 /min Universi ty of [facility] Respiratory rate 2022-02-23 01:15:00 18 /min Univ ersity of [facility] Oxygen saturation in 2022-02-23 01:15:00 96 /min [facility] Arterial blood by [facility] Pulse oximetry [place] Body temperature 2022-02-23 00:04:00 37.33 Sumi Univ ersity of [facility] Body height 2022-02-23 00:04:00 180.3 cm [facility] Body weight 2022-02-23 00:04:00 114.306 kg [facility] BMI 2022-02-23 00:04:00 35.15 kg/m2 [facility] Body weight 2022-02-11 14:34:00 114.397 kg [facility] BMI 2022-02-11 14:34:00 35.17 kg/m2 [facility] Systolic blood 2022-02-03 08:58:48 133 mm[Hg] Univer sity of pressure [facility] Diastolic blood 2022-02-03 08:58:48 79 mm[Hg] Unive rsity of pressure [facility] Heart rate 2022-02-03 08:53:00 101 /min [facility] Respiratory rate 2022-02-03 08:53:00 18 /min Univ ersity of [facility] Body height 2022-02-03 08:53:00 180.3 cm [facility] Body weight 2022-02-03 08:53:00 136.079 kg [facility] BMI 2022-02-03 08:53:00 41.84 kg/m2 [facility] Oxygen saturation in 2022-02-03 08:53:00 96 /min University of Arterial blood by [facility] Pulse oximetry Branch Systolic blood 2022-01-24 05:02:00 120 mm[Hg] Univer sity of pressure [facility] Diastolic blood 2022-01-24 05:02:00 67 mm[Hg] Unive rsity of pressure [facility] Heart rate 2022-01-24 05:02:00 104 /min [facility] Respiratory rate 2022-01-24 05:02:00 18 /min [facility] [place] [facility] Body height 2022-01-24 05:02:00 180.3 cm [facility] Body weight 2022-01-24 05:02:00 136.079 kg [facility] BMI 2022-01-24 05:02:00 41.84 kg/m2 [facility] Oxygen saturation in 2022-01-24 05:02:00 95 /min University of Arterial blood by [facility] Pulse oximetry Branch Body weight 2022-01-14 14:45:00 129.729 kg [facility] BMI 2022-01-14 14:45:00 39.89 kg/m2 [facility] Systolic blood 2021-12-18 18:15:00 123 mm[Hg] Univer sity of pressure [facility] Diastolic blood 2021-12-18 18:15:00 74 mm[Hg] Unive rsity of pressure [facility] Heart rate 2021-12-18 18:15:00 79 /min [facility] Body temperature 2021-12-18 18:15:00 36.61 Sumi [facility] Respiratory rate 2021-12-18 18:15:00 18 /min [facility] Body height 2021-12-18 18:15:00 180.3 cm [facility] Body weight 2021-12-18 18:15:00 127.461 kg [facility] BMI 2021-12-18 18:15:00 39.19 kg/m2 [facility] Oxygen saturation in 2021-12-18 18:15:00 99 /min University Arterial blood by [facility] Pulse oximetry Branch Procedures Procedure Date / Time Performed Performing Clinician Victoria mejia POCT HEMOGLOBIN A1C 2022-11-18 15:56:00 Cheri Simms [facility] TEST Medical Branch [facility] PATIENT FINANCIAL 2022-09-09 13:39:51 Doctor Unassigned, No [facility] POLICY Name Medical Branch EKG-12 LEAD 2022-08-02 02:49:13 Penny Sue [facility] POCT GLUCOSE(AGE 2022-08-02 02:19:00 Penny Sue [facility] >30DAYS) Medical Branch POCT GLUCOSE 2022-08-02 02:18:00 Penny Sue [facility] (AUTOMATED) [facility] POCT GLUCOSE 2022-08-02 00:37:00 Penny Sue [facility] (AUTOMATED) [facility] URINALYSIS 2022-08-01 23:57:00 Penny Sue [facility] CT ANGIOGRAM HEAD 2022-08-01 23:56:50 Penny Sue [facility] CT ANGIOGRAM NECK 2022-08-01 23:56:50 Penny Sue [facility] XR CHEST 1 VW 2022-08-01 23:55:54 Penny Sue [facility] MAGNESIUM 2022-08-01 23:23:00 Penny Sue [facility] TROPONIN I 2022-08-01 23:23:00 Penny Sue [facility] COMP. METABOLIC PANEL 2022-08-01 23:23:00 Penny Sue [facility] ([id number]) [facility] CBC WITH DIFF 2022-08-01 23:23:00 Penny Sue [facility] CONSENT/REFUSAL FOR 2022-08-01 23:18:53 Doctor Unassigned, No [facility] DIAGNOSIS AND Name Medical [place] TREATMENT ASSIGNMENT OF BENEFITS 2022-08-01 23:18:28 Doctor Unassigned, No [facility] Name [facility] POCT HEMOGLOBIN A1C 2022-07-13 16:43:00 [facility]C 2022-04-23 20:45:00 Osmany Alfredo [facility] NOTICE OF PRIVACY 2022-02-22 23:55:21 Doctor Unassigned, No [facility] [place] PRACT[facility] Name [facility] CONSENT/REFUSAL FOR 2022-02-22 23:54:33 Doctor Unassigned, No [facility] [place] DIAGNOSIS AND Name Medical Branch TREATMENT CONSENT/REFUSAL FOR 2022-02-11 13:55:49 Doctor Unassigned, No [facility] [place] DIAGNOSIS AND Name Medical Branch TREATMENT CONSENT/REFUSAL FOR 2022-01-24 04:57:37 Doctor Unassigned, No [facility] [place] DIAGNOSIS AND Name Medical Branch TREATMENT Encounters Start End Encounter Admission Attending Care Care Encounter Source Date/Time Date/Time Type Type Clinicians Facility Department ID 2022-10-28 Outpatient Aman [facility] [id number] Common 13:34:02 Osmany [id number] [facility] 2023-01-11 2023-01-11 Refill Cheri Simms [facility] 1.2.840.114 [id number] Univers 00:00:00 00:00:00 HEALTH 350.1.13.10 it y of [place] 4.2.7.2.686 Rodrick as CESAR?BLEA [id number] [address] MEDICAL OFFICE BUILDING 2023-01-08 2023-01-08 Telephone [facility] [id number] Univers 00:00:00 00:00:00 Manuela A MULTISPEC 350.1.13.10 [place] [id number] [address] [facility]ES [facility]IC 2022-12-04 2022-12-04 Telephone [facility] [id number] Univers 00:00:00 00:00:00 Manuela A MULTISPEC 350.1.13.10 [place] [id number] [address] [facility]IC 2022-11-262022-11-26 Office [facility] 1.2.840.114 [id number] Univers 14:00:00 14:15:00 Visit Osmany HEALTH 350.1.13.10 it y of [place] 4.2.7.2.686 Rodrick as CESAR?BLEA [id number] Ms jamila [place] 044 [facility] OFFICE [facility] 2022-11-26 2022-11-26 [facility] [id number] Univers 14:00:00 14:00:00 OSMANY luis [facility] 2022-11-18 2022-11-18 Outpatient R MENDEZCHERI Healy [facility] [id number] Univers 11:00:00 11:41:30 CHERI SIMMS [facility] 2022-11-18 2022-11-18 Office Mendez [facility] 1.2.840.114 [id number] Univers 11:00:00 11:41:30 Visit HEALTH 350.1.13.10 [facility] 4.2.7.2.686 [place]rick as CESAR?BLEA [phone] Ms jamila PANDYA [address] [facility] 2022-11-09 2022-11-09 Refill Mendez [facility] 1.2.840.114 [id number] Univers 00:00:00 00:00:00 HEALTH 350.1.13.10 it y of [place] 4.2.7.2.686 Rodrick as CESAR?BLEA [id number] [facility] PANDYA [address] [facility] 2022-11-04 2022-11-04 Refill [facility] 1.2.840.114 [id number] Univers 00:00:00 00:00:00 Janie [place] 350.1.13.10 ity of [facility] [place].2.7.2.[place] [id number] Ms dicisaac [facility] [address] [facility] 2022-10-26 2022-10-26 Telephone [facility] [id number] Univers 00:00:00 00:00:00 Osmany HEALTH 350.1.13.10 it y [facility] 4.2.7.2.686 [place] as CESAR?BLEA [id number] [address] OFFICE [facility] 2022-10-21 2022-10-21 Telephone [facility] [id number] Univers 00:00:00 00:00:00 Osmany HEALTH 350.1.13.10 it y of [place] 4.2.7.2.686 [place] as CESAR?BLEA [id number] [address] OFFICE [facility] 2022-10-20 2022-10-20 Refill [facility] 1.2.840.114 [id number] Univers 00:00:00 00:00:00 Osmany HEALTH 350.1.13.10 it y of [place] 4.2.7.2.686 Rodrick as CESAR?BLEA [id number] [address] OFFICE [facility] 2022-10-05 2022-10-05 Office [facility] 1.2.840.114 [id number] Univers 13:30:00 13:45:00 Visit [facility] 350.1.13.10 it y of [place] 4.2.7.2.686 Rodrick as CESAR?BLEA [id number] [address] OFFICE [facility] 2022-10-05 2022-10-05 [facility] [id number] Univers 13:30:00 13:30:00 OSMANY ity of [facility] 2022-09-30 2022-09-30 Telephone [facility] 1..[id number] Univers 00:00:00 00:00:00 [facility] 350.1.13.10 it y of [place] 4.2.7.2.686 Rodrick as CESAR?BLEA [id number] [address] OFFICE [facility] 2022-09-17 2022-09-17 [facility] 1.2.840.114 [id number] Univers 00:00:00 00:00:00 Osmany HEALTH 350.1.13.10 it y of [place] 4.2.7.2.686 Rodrick as CESAR?BLEA [id number] [address] OFFICE [facility] 2022-09-14 2022-09-14 Telephone [facility] [id number] Univers 00:00:00 00:00:00 [place] HEALTH 350.1.13.10 it y of [place] 4.2.7.2.686 Rodrick as CESAR?BLEA [id number] [address] 2022-09-09 2022-09-09 Office [facility] 1.2.840.114 [id number] Univers 09:00:00 09:30:00 Visit [facility] 350.1.13.10 it y of [place] 4.2.7.2.686 Rodrick as CESAR?BLEA [id number] [address] OFFICE [facility] 2022-09-09 2022-09-09 Outpatient R AMAN [facility] [id number] Univers 09:00:00 09:00:00 OSMANY ity [facility] 2022-09-09 2022-09-09 Orders Doctor SEN 1.2.840.114 [id number] Univers 00:00:00 00:00:00 Only Unassigned, DAVID 350.1.13.10 ity of [place] [facility] 4.2.7.2.686 [place] as [id number] [address] 2022-09-09 2022-09-09 Telephone [facility] [id number] [id number] Univers 00:00:00 00:00:00 [place] HEALTH 350.1.13.10 it y of [place] 4.2.7.2.686 Rodrick as CESAR?BLEA [id number] [address] OFFICE [facility] 2022-08-28 2022-08-28 Refill Aman [facility] 1.2.840.114 [id number] Univers 00:00:00 00:00:00 Osmany HEALTH 350.1.13.10 it y of [place] 4.2.7.2.686 Rodrick as CESAR?BLEA [id number] [address] OFFICE [facility] 2022-08-28 2022-08-28 Cheri Aguilar [facility] 1.2.840.114 [id number] Univers 00:00:00 00:00:00 HEALTH 350.1.13.10 it y of [place] 4.2.7.2.686 [place] as CESAR?BLEA [id number] [facility] [address] OFFICE [facility] 2022-08-23 2022-08-23 Raffi [facility] 1.2.840.114 [id number] Univers 00:00:00 00:00:00 Osmany HEALTH 350.1.13.10 it y of [place] 4.2.7.2.686 [place] as CESAR?BLEA [id number] [facility] [address] OFFICE [facility] 2022-08-20 2022-08-20 Raffi [facility] 1.2.840.114 [id number] Univers 00:00:00 00:00:00 Osmany HEALTH 350.1.13.10 it y of [place] 4.2.7.2.686 Rodrick as CESAR?BLEA [id number] Ms jamila [address] OFFICE [facility] 2022-08-15 2022-08-15 [facility] 1.2.840.114 [id number] Univers 00:00:00 00:00:00 Osmany HEALTH 350.1.13.10 it y of [place] 4.2.7.2.686 Rodrick as CESAR?BLEA [id number] [facility] [address] 2022-08-05 2022-08-05 Nurse Nurse, [facility] 1.2. 840.114 [id number] Univers 09:00:00 15:08:40 Visit Cheko Humphries 350.1.13.10 ity of [place] [id number] Ms jamila [address] 2022-08-05 2022-08-05 Outpatient R FABBY [facility] [id number] Univers 09:00:00 09:00:00 CHEKO ity of [facility] 2022-08-01 2022-08-01 Emergency X VIKRAM [facility] ERT [id number] Univers 18:09:00 22:07:00 PENNY itluis [facility] 2022-08-01 2022-08-01 [facility] 1.2.840.114 [id number] [facility] [place] [facility] 18:09:00 22:07:00 Penny MCMANUS 350.1.13.10 ity of [place]2.7.2.686 [place] [facility] [facility] [id number] [address] 2022-07-30 2022-07-30 Refill [facility] 1.2.840.114 [id number] Univers 00:00:00 00:00:00 [facility] 350.1.13.10 it y of [place] 4.2.7.2.686 Rodrick as CESAR?BLEA [id number] [address] MEDICAL OFFICE [facility] 2022-07-19 2022-07-19 Refsherri [facility] 1.2.840.114 [id number] Univers 00:00:00 00:00:00 [facility] 350.1.13.10 it y of [place] 4.2.7.2.686 Rodrick as CESAR?BLEA [id number] [address] OFFICE [facility] 2022-07-16 2022-07-16 [facility] [id number] Univers 09:45:00 10:08:04 OSMANY [facility] 2022-07-16 2022-07-16 Office [facility] 1.2.840.114 [id number] Univers 09:45:00 10:00:00 Visit [facility] 350.1.13.10 it y of [place] 4.2.7.2.686 Rodrick as CESAR?BLEA [id number] [facility] [address] [place] MEDICAL OFFICE [facility] 2022-07-13 2022-07-13 [employer], Ang - Db [facility] 1.2.840.1 [id number] Univers 11:30:00 11:45:00 Visit Mendez, [facility] 350.1.13.10 it y of [place] 4.2.7.2.686 Rodrick as CESAR?BLEA [id number] [facility] [address] MEDICAL OFFICE BUILDING 2022-07-13 2022-07-13 Outpatient R CHERI SIMMS [facility] [id number] Univers 11:00:00 11:23:39 CHERI SIMMS itluis [facility] 2022-07-13 2022-07-13 Office Cheri Simms [facility] 1.2.840.114 [id number] Univers 11:00:00 11:23:39 Visit HEALTH 350.1.13.10 it y [facility] 4.2.7.2.686 Rodrick as CESAR?BLEA [id number] [facility] [place] 220 [facility] OFFICE [facility] 2022-07-08 2022-07-08 Outpatient R AMAN [facility] [id number] Univers 10:00:00 10:00:03 OSMANY [facility] 2022-07-08 2022-07-08 Nurse Nurse, [facility] 1.2. 840.114 [id number] Univers 10:00:00 10:00:03 Visit Osmany Alfredo 350.1.13.10 it[place] [id number] Ms jamila [facility] [address] [facility] 2022-07-08 2022-07-08 Refsherri [facility] [id number] Univers 00:00:00 00:00:00 Osmany HEALTH 350.1.13.10 it y of [place] 4.2.7.2.686 Rodrick as CESAR?BLEA [id number] Ms dicisaac PANDYA [address] [facility] 2022-07-03 2022-07-03 [facility] 1.2.840.114 [id number] Univers 00:00:00 00:00:00 Osmany HEALTH 350.1.13.10 it y of [place] 4.2.7.2.686 Rodrick as CESAR?BLEA [id number] Ms dicisaac PANDYA [address] [facility] 2022-06-22 2022-06-22 Refsherri [facility] CENTER 1.2.840.114 [id number] Univers 00:00:00 00:00:00 Osmany HEALTH 350.1.13.10 it y of [place] 4.2.7.2.686 Rodrick as CESAR?BLEA [id number] [address] OFFICE [facility] 2022-06-08 2022-06-08 Outpatient R FABBY [facility] [id number] Univers 10:00:00 10:58:03 CHEKO ity of [facility] 2022-06-08 2022-06-08 Nurse Nurse, [facility] Surgery [facility] 1.2. 840.114 [id number] [facility] 10:00:00 10:58:03 Visit Cheko Humphries [place] 350.1.13.10 ity of [facility] [place].2.7.2.[place] [phone] [address] 2022-06-08 2022-06-08 [facility]i [facility] 1.2.840.114 [id number] Univers 00:00:00 00:00:00 Janie [place] 350.1.13.10 ity of [place].2.7.2.[place] [id number] [address] 2022-06-04 2022-06-04 Raffi [facility] 1.2.840.114 [id number] Univers 00:00:00 00:00:00 Osmany HEALTH 350.1.13.10 it y of [place] 4.2.7.2.686 Rodrick as CESAR?BLEA [id number] [address] 2022-05-28 2022-05-28 Raffi [facility] 1.2.840.114 [id number] Univers 00:00:00 00:00:00 Osmany HEALTH 350.1.13.10 it y of [place] 4.2.7.2.686 Rodrick as CESAR?BLEA [id number] [address] OFFICE [facility] 2022-05-18 2022-05-18 Raffi [facility] 1.2.840.114 [id number] Univers 00:00:00 00:00:00 Osmany HEALTH 350.1.13.10 it y of [place] 4.2.7.2.686 Rodrick as CESAR?BLEA [id number] [address] OFFICE [facility] 2022-05-08 2022-05-08 Outpatient R ADDI [facility] [id number] Univers 09:00:00 09:12:50 DULCE damon [facility] 2022-05-08 2022-05-08 Nurse Nurse, [facility] 1.2. 840.114 [id number] Univers 09:00:00 09:12:50 Visit Dulce Fontana 350.1.13.10 ity of [facility] 4.2.7.2.[place] [id number] [address] 2022-04-23 2022-04-23 Outpatient Hai ALFREDO [facility] [id number] Univers 13:45:00 13:59:31 OSMANY [facility] 2022-04-23 2022-04-23 Office [facility] 1.2.840.114 [id number] Univers 13:45:00 13:59:31 Visit Xquva 350.1.13.10 it y of [place] 4.2.7.2.686 Rodrick as CESAR?BLEA [id number] [address] OFFICE [facility] 2022-04-17 2022-04-17 Refill [facility] 1.2.840.114 [id number] Univers 00:00:00 00:00:00 Jenny A HEALTH 350.1.13.10 i ty [facility] 4.2.7.2.686 Rodrick as CESAR?BLEA [id number] [address] OFFICE [facility] 2022-04-16 2022-04-16 Office [facility] 1.2.840.114 [id number] Univers 15:00:00 15:02:43 Visit Cheko MCMANUS 350.1.13.10 i ty of [facility] 4.2.7.2.[place] [id number] [address] 2022-04-16 2022-04-16 [facility] [id number] Univers 14:30:00 15:01:22 DULCE ity of [facility] 2022-04-16 2022-04-16 Office [facility] 1.2.659.067 [id number] Univers 14:30:00 15:00:00 Visit Dulce YONATHAN 350.1.13.10 i ty of [facility] 4.2.7.2.[place] [id number] Ms dical NAL [address] [facility] 2022-04-08 2022-04-08 [facility] [id number] Univers 09:00:00 10:20:48 CHEKO ity [facility] 2022-04-08 2022-04-08 Nurse Nurse, [facility] Surgery [facility] 1.2. 840.114 [id number] Univers 09:00:00 10:20:48 Visit Cheko Humphries 350.1.13.10 ity of [facility] 4.2.7.2.[place] [id number] Ms dical NAL [address] [facility] 2022-04-07 2022-04-07 Raffi [facility] 1.2.840.114 [id number] Univers 00:00:00 00:00:00 [facility] 350.1.13.10 it y of [place] 4.2.7.2.686 Rod[place] as CESAR?BLEA [id number] Ms jamila PANDYA [address] [place] [address] 2022-03-20 2022-03-20 Outpatient R [facility] [id number] Univers 11:00:00 11:00:00 ity of [facility] 2022-03-11 2022-03-11 [facility] [id number] Univers 09:30:00 09:30:00 CHEKO ity [facility] 2022-03-11 2022-03-11 Nurse Nurse, [facility] Surgery [facility] 1.2. 840.114 [id number] Univers 09:30:00 09:30:00 Visit Cheko Humphries [facility] 350.1.13.10 ity of [facility] 4.2.7.2.[place] [id number] Ms dic[address] 2022-02-22 2022-02-22 Emergency X [facility] ERT [id number] Univers 19:07:00 20:44:00 SERVANDO ity [facility] 2022-02-22 2022-02-22 Emergency [facility] 1.2.389.638 [id number] Univers 19:07:00 20:44:00 Servando MCMANUS 350.1.13.10 i ty of [place] 4.2.7.2.686 [place] C[place] [id number] [place] [address] [place] 2022-02-22 2022-02-22 Orders Doctor SEN 1.2.840.114 [id number] Univers 00:00:00 00:00:00 Only Unassigned, DAVID 350.1.13.10 ity of [facility] 4.2.7.2.686 Rodrick as [id number] [address] 2022-02-11 2022-02-11 Outpatient R FABBY [facility] [id number] Univers 09:30:00 10:09:40 CHEKOHCA [facility] 2022-02-11 2022-02-11 Nurse Nurse, [facility] Surgery [facility] 1.2. 840.114 [id number] Univers 09:30:00 10:09:40 Visit Cheko Humphries 350.1.13.10 ity of [place] 4.2.7.2.686 [place] [facility] [phone] [address] 2022-02-11 2022-02-11 Orders Doctor SEN 1.2.840.114 [id number] Univers 00:00:00 00:00:00 Only Unassigned, DAVID 350.1.13.10 ity of [place] [facility] 4.2.7.2.686 Rodrick as [id number] [address] 2022-02-03 2022-02-03 Emergency X [facility] ERT [id number] Univers 03:59:00 04:45:00 [facility]-03 2022-02-03 Emergency [facility] 1.2.784.329 [id number] Univers 03:59:00 04:45:00 Danny MCMANUS 350.1.13.10 i ty of [place] 4.2.7.2.[place] C[place] [id number] [address] 2022-01-24 2022-01-24 Emergency X Joe BEAN [facility] ERT [id number] Univers 00:19:00 01:18:00 ity of [facility] 2022-01-24 2022-01-24 Emergency Joe Bean [facility] 1.2.840.114 [id number] Univers 00:19:00 01:18:00 Carly MCMANUS 350.1.13.10 i ty of [facility] 4.2.7.2.[place] [id number] [address] 2022-01-14 2022-01-14 Outpatient R FABBY [facility] [id number] Univers 09:30:00 09:39:08 CHEKO ity [facility] 2022-01-14 2022-01-14 Nurse Nurse, Adc Surgery [facility] 1.2. 840.114 [id number] Univers 09:30:00 09:39:08 Visit Sonamshannon Chekopalomo CARBAJALPERLA 350.1.13.10 ity of [place] 4.2.7.2.686 [place] [phone] Ms jamila [facility] [address] BUILDING 2021-12-24 2021-12-24 Telephone AlfredoL[facility] 1.2.809.760 [id number] Univers 00:00:00 00:00:00 [facility] 350.1.13.10 it y of [place] 4.2.7.2.686 Rodrick as CESAR?BLEA [phone] Ms dicisaac OHARAEY [address] MEDICAL OFFICE BUILDING 2021-12-22 2021-12-22 Outpatient Hai PADRON [facility] [id number] Univers 00:00:00 00:00:00 JANIE alonzo [facility] 2021-12-22 2021-12-22 Outpatient Hai PADRON [facility] [id number] Univers 00:00:00 00:00:00 JANIE alonzo [facility] 2021-12-182021-12-18 [facility] [id number] Univers 13:30:00 14:47:49 CHEKO ity [facility] 2021-12-18 2021-12-18 Office [facility] 1.2.840.114 [id number] Univers 13:30:00 14:47:49 Visit , Adc Surg Spec Procedure [facility] 3 50.1.13.10 ity of [facility] 4.2.7.2.[place] [id number] Ms dical NAL 204 [facility] 2021-12-18 2021-12-18 Out[facility] [id number] Univers 13:30:00 14:47:49 CHEKO ity [facility] 2021-12-15 2021-12-15 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 10 ity of [facility] 4.2.7.2.[place] [id number] Ms dical [facility] [address] [facility] 2021-12-15 2021-12-15 Outpatient [facility] [id number] Univers 09:30:00 11:18:29 JANIE damon o f [facility] 2021-12-15 2021-12-15 Office [facility] 1.2.840.114 [id number] Univers 09:30:00 11:18:29 Visit Janie MCMANUS 350.1.13.10 ity of [place] 4.2.7.2.[place] [phone] Ms dical [address] 2021-12-15 2021-12-15 [facility] [id number] Univers 09:30:00 09:30:00 JANIE damon o f [facility] 2021 2021 Office [facility] 1.2.840.114 [id number] Univers 16:00:00 16:00:00 Visit Janie MCMANUS 350.1.13.10 ity of [facility] 4.2.7.2.[place] [id number] Ms dical NAL [address] [facility] 2021 2021 Steam Shovel Runner 2, Adc Lab [facility] 1.2.840.114 [id number] Univers 11:15:00 11:30:00 Visit Vito Jnaie YONATHAN 350.1.13. 10 ity of [facility] 4.2.7.2.[place] [id number] Ms dical [facility] [address] [facility] 2021 2021 [facility]patient [facility] [id number] Univers 16:00:00 10:45:05 JANIE damon o [facility] 2021 2021 Raffi [facility]oL[facility] 1.2.840.114 [id number] Univers 00:00:00 00:00:00 [facility] 350.1.13.10 it y of [place] 4.2.7.2.686 Rodrick as CESAR?BLEA [id number] Ms jamila OHARA 044 [facility] OFFICE [facility] 2021-12-10 2021-12-10 [facility] [id number] Univers 15:30:00 15:30:00 JANIE damon o [facility] 2021-11-20 2021-11-20 Telephone Padron, [facility] 1.2.840.114 [id number] Univers 00:00:00 00:00:00 Janie MCMANUS 350.1.13.10 ity of [facility] 4.2.7.2.686 [place] [phone] Ms dical [facility] [address] [facility] 2021-11-19 2021-11-19 Outpatient [facility] [id number] Univers 14:00:00 14:00:00 JANIE damon o [facility] 2021-11-18 2021-11-18 Emergency X FRANTZ, [facility] ERT [id number] Univers 15:27:00 21:09:00 SERVANDO damon [facility] 2021-11-18 2021-11-18 Emergency [facility] 1.2.226.573 [id number] Univers 15:27:00 21:09:00 Servando CARBAJALTON 350.1.13.10 i ty of [facility] 4.2.7.2.686 [facility] [id number] [address] 2021-11-18 2021-11-18 Telephone [facility] 1.2.840.114 [id number] Univers 00:00:00 00:00:00 Janieitalo CARBAJALTON 350.1.13.10 ity of [facility] 4.2.7.2.686 [facility] PROFESSIO [id number] [address] 2021-11-15 2021-11-15 Emergency X [facility] ERT [id number] Univers 21:10:00 22:48:00 MIN ity [facility] 2021-11-15 2021-11-15 Emergency [facility] 1.2.840.114 [id number] Univers 21:10:00 22:48:00 Min A RAVENTON 350.1.13.10 ity of [place] 4.2.7.2.686 [facility] [id number] [address] 2021-11-13 2021-11-13 Emergency [facility] E[facility] [id number] Univers 15:52:00 17:06:00 ARISTIDES ity [facility] 2021-11-13 2021-11-13 Emergency [facility] 1.2.840.114 [id number] Univers 15:52:00 17:06:00 Aristides B [place] 350.1.13.10 i ty of [place] 4.2.7.2.686 [facility] [id number] [address] 2021-11-13 2021-11-13 [facility] [id number] Univers 08:30:00 08:49:14 SUKI ity [facility] 2021-11-13 2021-11-13 Office [facility] 1.2.840.114 [id number] Univers 08:30:00 08:49:14 Visit [facility] 350.1.13.10 it y of [place] 4.2.7.2.686 Rodrick as CESAR?BLEA [id number] [address] MEDICAL OFFICE [facility] 2021-11-13 2021-11-13 Outpatient R LARA [facility] [id number] Univers 08:30:00 08:49:14 SUKI luis [facility] 2021-11-13 2021-11-13 Telephone [facility] 1.2.227.432 [id number] Univers 00:00:00 00:00:00 Osmany HEALTH 350.1.13.10 it y of [place] 4.2.7.2.686 Rodrick as CESAR?BLEA [id number] [address] OFFICE [facility] 2021-11-10 2021-11-10 Telephone [facility] 1.2.493.621 [id number] Univers 00:00:00 00:00:00 [facility] 350.1.13.10 it y of [place] 4.2.7.2.686 Rodrick as CESAR?BLEA [id number] [address] OFFICE [facility] 2021-11-07 2021-11-07 Emergency X MENDENHALL, [facility] ERT [id number] Univers 18:40:00 21:50:00 LEIF luis [facility] 2021-11-07 2021-11-07 Emergency [facility] ..840.114 [id number] Univers 18:40:00 21:50:00 Leif [place] 350.1.13.10 i ty of [place] 4.2.7.2.686 [place] [facility] [id number] [address] 2021-10-29 2021-10-29 Outpatient R CHERI SIMMS [facility] [id number] Univers 13:00:00 16:48:57 CHERI SIMMS itluis [facility] 2021-10-29 2021-10-29 Office Cheri Simms [facility] 1.2.840.114 [id number] Univers 13:00:00 16:48:57 Visit HEALTH 350.1.13.10 it y of [place] 4.2.7.2.686 Rodrick as CESAR?BLEA [id number] Ms jamila PANDYA 220 [facility] OFFICE [facility] 2021-10-20 2021-10-20 Refill [facility] 1.2.840.114 [id number] Univers 00:00:00 00:00:00 Jenny A HEALTH 350.1.13.10 i ty of [place] 4.2.7.2.686 Rodrick as CESAR?BLEA [id number] [facility] 044 [facility] OFFICE [facility] 2021-10-09 2021-10-09 Office [facility] 1.2.840.114 [id number] Univers 13:45:00 14:00:00 Visit Osmany HEALTH 350.1.13.10 it y [facility] 4.2.7.2.686 Rodrick as CESAR?BLEA [id number] [address] 2021-10-09 2021-10-09 Outpatient Hai ALFREDO [facility] [id number] Univers 13:45:00 13:45:00 [facility] 2021-10-09 2021-10-09 Outpatient Hai ALFREDO [facility] [id number] Univers 13:45:00 13:45:00 [facility] 2021-10-07 2021-10-07 Outpatient [facility] [id number] Univers 09:00:00 09:00:00 [facility] 2021-09-29 2021-09-29 Telephone [facility] 1.2.696.250 [id number] Univers 00:00:00 00:00:00 Jenny A HEALTH 350.1.13.10 i ty of [facility] 4.2.7.2.686 Rodrick as CESAR?BLEA [id number] [address] 2021-09-22 2021-09-22 Refill [facility] 1.2.840.114 [id number] Univers 00:00:00 00:00:00 Osmany HEALTH 350.1.13.10 it y of [place] 4.2.7.2.686 Rodrick as CESAR?BLEA [id number] Me dical [facility] [address] MEDICAL OFFICE BUILDING 2021-09-13 2021-09-13 Orders Doctor SEN 1.2.840.114 [id number] Univers 00:00:00 00:00:00 Only Unassigned, DAVID 350.1.13.10 ity of [place] [facility] 4.2.7.2.686 Rodrick as [id number] [facility] [address] 2021-08-14 2021-08-14 Telephone [facility] 1.2.967.193 [id number] Univers 00:00:00 00:00:00 [facility] 350.1.13.10 ity of [facility] 4.2.7.2.686 [place] [facility] [id number] [facility] AND VALLES MINES [address] [facility] 2021-07-25 2021-07-25 [facility] KARINA Naik 1.2.840.114 [id number] Univers 13:42:00 23:59:00 Encounter Zahida Farfan 350.1.13.10 ity of [facility] 4.2.7.2.686 Rodrick as [id number] [facility] [address] 2021-07-25 2021-07-25 Outpatient R HEENA [facility] ACO [id number] Univers 00:00:00 23:59:00 ZAHIDA lawrencey [facility] 2021-07-23 2021-07-23 [facility] [id number] Univers 09:15:00 09:15:00 VIANNEY ity [facility] 2021-07-22 2021-07-22 Outpatient R EUGENIO [facility] [id number] Univers 14:00:00 14:54:48 [facility] 2021-07-22 2021-07-22 Office [facility] 1.2.840.114 [id number] Univers 14:00:00 14:54:48 Visit [facility] 350.1.13.10 it y of [place] 4.2.7.2.686 Rodrick as CESAR?BLEA [id number] Ms jamila PANDYA [address] MEDICAL OFFICE BUILDING 2021-07-16 2021-07-16 Outpatient R BERTIN [facility] [id number] Univers 13:00:00 13:16:39 JENNY damon [facility] 2021-04-30 2021-04-30 Office [facility] 1.2.840.114 [id number] Univers 09:30:00 09:45:00 Visit Osmany HEALTH 350.1.13.10 it y of [place] 4.2.7.2.686 Rodrick as CESAR?BLEA [id number] Ms jamila [address] MEDICAL OFFICE BUILDING 2021-04-30 2021-04-30 Outpatient Hai LARAALFREDO [facility] [id number] Univers 09:30:00 09:41:44 OSMANY damon [facility] 2021-04-30 2021-04-30 Outpatient Hai L[facility]ALFREDOHEN[facility] [id number] Univers 09:30:00 09:30:00 OSMANY luis [facility] 2021-04-29 2021-04-29 Refill [facility] 1.2.840.114 [id number] Univers 00:00:00 00:00:00 Hieu MULTISPEC 350.1.13.10 ity of [place]2.7.2.686 [place] CENTER [id number] [address] [facility] 2021-04-22 2021-04-22 Outpatient Hai [facility]ALFREDOHEN[facility] [id number] Univers 08:45:00 08:45:00 OSMANY marisol [facility] 2021-04-22 2021-04-22 Refill [facility] 1.2.840.114 [id number] Univers 00:00:00 00:00:00 Caroline HEALTH 350.1.13.10 i ty of [place] 4.2.7.2.686 Rodrick as PROFESSIO [id number] Ms jamila SANCHES [address] [place] [address] OFFICE BUILDING ONE 2021-04-15 2021-04-15 Refill [facility] 1.2.840.114 [id number] Univers 00:00:00 00:00:00 Osmany HEALTH 350.1.13.10 it y of [place] 4.2.7.2.686 Ordrick as CESAR?BLEA [id number] [facility] [address] MEDICAL OFFICE BUILDING 2021-04-10 2021-04-10 Refill Ceci [facility] 1.2.840.114 [id number] Univers 00:00:00 00:00:00 Caroline HEALTH 350.1.13.10 i ty of [place] 4.2.7.2.686 Rodrick as PROFESSIO [id number] [facility] [address] OFFICE BUILDING ONE 2021-04-04 2021-04-04 Refill Yonathancorcor[facility] hospitalkhushbooL[facility] 1.2.840.114 [id number] Univers 00:00:00 00:00:00 Hieu MULTISPEC 350.1.13.10 ity of [facility] 4.2.7.2.686 [place] [id number] [facility] AND VALLES MINES [address] [facility] 2021-01-27 2021-01-27 Outpatient [facility] [id number] Univers 11:30:00 11:30:00 HIEU ity of [facility] 2021-01-27 2021-01-27 Steam Shovel Runner Jaylene, Adc Lab Main [facility] 1.2.8 40.114 [id number] Univers 08:17:32 08:32:32 Visit Hieu [place] 350.1.13.10 ity of [place] 4.2.7.2.686 [place] Profess[place] [phone] [facility] 353 [facility] 2021-01-27 2021-01-27 Orders Doctor SEN 1.2.840.114 [id number] Univers 00:00:00 00:00:00 Only Unassigned, DAVID 350.1.13.10 ity of [place] [facility] 4.2.7.2.686 Rodrick as [id number] [facility] [address] 2021-01-24 2021-01-24 Telephone Pooja [facility] 1.2.840.114 [id number] Univers 00:00:00 00:00:00 Hieu Health 350.1.13.10 it y of [place] 4.2.7.2.686 Rodrick as Cesar?Blea [phone] [facility] [address] Medical Office Building 2021-01-13 2021-01-13 Refill [facility] 1.2.840.114 [id number] Univers 00:00:00 00:00:00 [facility] 350.1.13.10 i ty of [place] 4.2.7.2.686 Rodrick as Professio [phone] Ms dicisaac nal 044 [facility] One 2021-01-13 2021-01-13 [facility] 1.2.840.114 [id number] Univers 00:00:00 00:00:00 [facility] 350.1.13.10 i ty of [place] 4.2.7.2.686 Rodrick as Professio [id number] Ms dicme nal [address] [place] [address] One 2020-11-26 2020-11-26 Outpatient R CANDIDA [facility] [id number] Univers 09:00:00 09:00:00 GLORY [facility] 2020-11-14 2020-11-14 Outpatient R TERESO [facility] [id number] Univers 09:00:00 09:00:00 SENDIL [facility] 2020-11-07 2020-11-07 [facility] [id number] Univers 13:00:00 13:49:41 SUE [facility] 2020-10-18 2020-10-18 Outpatient R POOJA [facility] [id number] Univers 10:15:00 10:15:00 HIEU [facility] 2020-10-15 2020-10-15 Outpatient R CECI [facility] [id number] Univers 15:30:00 15:30:00 CAROLINE villeda [facility] 2020-08-03 2020-08-03 Outpatient [facility] [id number] Univers 10:45:00 10:45:00 [facility] 2020-07-16 2020-07-16 Outpatient R CECI [facility] [id number] Univers 14:30:00 14:30:00 CAROLINE alonzo [facility] Results Test Description Test Time Test Comments Results Result Comments Source POCT HEMOGLOBIN A1C TEST 2022-11-18 16:05:00 Test Item Value Reference Range Interpretation Comme nts POCT HBA1C (test code = 4548-4) 9.0 % 4-6 A Lab Interpretation (test code = 34830-6) Abnormal [facility] HEMOGLOBIN A1C [id number] 16:05:00 Test Item Value Reference Range Interpretation Comments POCT HBA1C (test code = 4548-4) 9.0 % 4-6 A Lab Interpretation (test code = Abnormal 13111-6) [facility] GLUCOSE (AUTOMATED)2022-08-02 02:22:51 Test Item Value Reference Range Interpretation Comments POCT GLU (test code = 5596663167) 337 mg/dL 70-110 H Lab Interpretation (test code = Abnormal 74376-7) [facility] GLUCOSE(AGE >30DAYS)2022-08-02 02:19:00 Test Item Value Reference Range Interpretation Comments POCT Glu (age>30days) (test code = 337 mg/dL 70-110 A 3342) Lab Interpretation (test code = Abnormal 52589-9) [facility] GLUCOSE (AUTOMATED)2022-08-02 00:40:52 Test Item Value Reference Range Interpretation Comments POCT GLU (test code = 6983824142) 472 mg/dL 70-110 HH Lab Interpretation (test code = Abnormal 28717-8) [facility]. METABOLIC PANEL (80005)2022-08-02 00:19:47 Test Item Value Reference Range Interpretation Comments NA (test code = 134 mmol/L 135-145 L [id number]) K (test code = 3.9 mmol/L 3.5-5.0 9450713738) CL (test code = 95 mmol/L 98-108 L 8298504150) CO2 TOTAL (test code = 28 mmol/L 23-31 8020897037) AGAP (test code = 11 2-16 7236391891) BUN (test code = 14 mg/dL 7-23 4700695465) GLUCOSE (test code = 550 mg/dL 70-110 HH 9948809464) CREATININE (test code = 0.67 mg/dL 0.60-1.25 9777407768) TOTAL BILI (test code = 0.7 mg/dL 0.1-1.4 5073538460) CALCIUM (test code = 9.4 mg/dL 8.6-10.6 1164562512) T PROTEIN (test code = 7.0 g/dL 6.3-8.2 6111771319) ALBUMIN (test code = 4.2 g/dL 3.5-5.0 5560957133) ALK PHOS (test code = 89 U/L 34-122 2143105868) ALTv (test code = 20 U/L 5-50 1742-6) AST(SGOT) (test code = 20 U/L 13-40 0073510870) eGFR (test code = 120.2 mL/min/1.73m2 1811513604) BONILLA (test code = BONILLA) Association of Glomerular Filtration Rate (GFR) and Staging of Kidney Disease* + --+ --+ ------+| GFR (mL/min/1.73 m2) ?| With Kidney Damage ?| ?Without Kidney Damage+ --------+ --------+ +| ?>90 ?| ?Stage one ?| ? Normal ?+ ---+ ---+ -------+| ?60-89 ?| ?Stage two ?| ? Decreased GFR ? + --+ --+ ------+| ?30-59 ?| ?Stage three ?| ? Stage three ? + --+ --+ ------+| ?15-29 ?| ?Stage four ? | ? Stage four ?+ ---+ ---+ -------+| ?<15 (or dialysis) ? ?| ?Stage five ? | ? Stage five ?+ ---+ ---+ -------+ *Each stage assumes the associated GFR level has been in effect for at least three months. ?Stages 1 to 5, with or without kidney disease, indicate chronic kidney disease. Notes: Determination of stages one and two (with eGFR >59mL/min/1.73 m2) requires estimation of kidney damage for at least three months as defined by structural or functional abnormalities of the kidney, manifested by either:Pathological abnormalities or Markers of kidney damage (including abnormalities in the composition of the blood or urine or abnormalities in imaging tests). Lab Interpretation Abnormal (test code = 66806-1) [id number] Test Item Value Reference Range Interpretation Comments TROPONIN I (test code = 0.005 ng/mL <=0.034 [id number]) BONILLA (test code = BONILLA) Reference (Normal) Range (defined by the 99th percentile reference limit): <= 0.034 ng/mL Note: Cardiac troponin begins to rise 3-4 hours after the onset of ischemia. Repeat in 4-6 hours if the sample was drawn within 3-4 hours of the onset of the symptom and found normal. Diagnosis of myocardial injury is made with acute changes in cTn concentrations with at least one serial sample above the 99th percentile upper reference limit (URL), taken together with the patient's clinical presentation. Biotin has been reported to cause a negative bias, interpret results relative to patient's use of biotin. Lab Interpretation Normal (test code = 06059-7) [facility]11 Test Item Value Reference Range Interpretation Comments MAGNESIUM (test code = 9543555378) 1.6 mg/dL 1.7-2.4 L Lab Interpretation (test code = Abnormal 05614-6) [facility] WITH [id number] 23:49:51 Test Item Value Reference Range Interpretation Comments WBC (test code = 8.07 See_Comment [Automated 8835-2) message] The sy stem which generated this result transmitted reference range : 4.20 - 10.70 10*3/?L. The reference range was not used to interpret this result as normal/abnormal . RBC (test code = 5.49 See_Comment [Automated 282-8) message] The sy stem which generated this result transmitted reference range : 4.26 - 5.52 10*6/?L. The reference range was not used to interpret this result as normal/abnormal . HGB (test code = 16.9 g/dL 12.2-16.4 H 718-7) HCT (test code = 48.4 % 38.4-49.3 4544-3) MCV (test code = 88.2 fL 81.7-95.6 787-2) MCH (test code = 30.8 pg 26.1-32.7 785-6) MCHC (test code = 34.9 g/dL 31.2-35.0 786-4) RDW-SD (test code = 41.2 fL 38.5-51.6 78172-7) RDW-CV (test code = 12.7 % 12.1-15.4 788-0) PLT (test code = 205 See_Comment [Automated 777-3) message] The sy stem which generated this result transmitted reference range : 150 - 328 10*3/ ?L. The reference r tino was not used to interpret this result as normal/abnormal . MPV (test code = 9.0 fL 9.8-13.0 L 72262-3) NRBC/100 WBC (test 0.0 See_Comment [Automat ed code = [id number]) message] The system which generated this result transmitted reference range : 0.0 - 10.0 /100 WBCs. The refer ence range was not u sed to interpret th is result as normal/abnormal . NRBC x10^3 (test code See_Comment [Auto mated = [id number]) message] The s ystem which generated this result transmitted reference range : 10*3/?L. The reference range was not used to interpret this result as normal/abnormal . GRAN MAT (NEUT) % 49.6 % (test code = 770-8) IMM GRAN % (test code 0.20 % = 4521125445) LYMPH % (test code = 41.8 % 736-9) MONO % (test code = 5.7 % 5905-5) EOS % (test code = 2.1 % 713-8) BASO % (test code = 0.6 % 706-2) GRAN MAT x10^3(ANC) 4.00 10*3/uL 1.99-6.95 (test code = 1507587676) IMM GRAN x10^3 (test 0.00-0.06 code = 0225052800) LYMPH x10^3 (test code 3.37 10*3/uL 1.09-3.23 H = 731-0) MONO x10^3 (test code 0.46 10*3/uL 0.36-1.02 = 742-7) EOS x10^3 (test code = 0.17 10*3/uL 0.06-0.53 711-2) BASO x10^3 (test code 0.05 10*3/uL 0.01-0.09 = 704-7) Lab Interpretation Abnormal (test code = 71819-1) [facility] HEMOGLOBIN A1C [id number] 16:48:00 Test Item Value Reference Range Interpretation Comments POCT HBA1C (test code = 4548-4) 12.9 % 4-6 A Lab Interpretation (test code = Abnormal 34655-4) [facility] HEMOGLOBIN A1C [id number] 16:48:00 Test Item Value Reference Range Interpretation Comments POCT HBA1C (test code = 4548-4) 12.9 % 4-6 A Lab Interpretation (test code = Abnormal 17701-9) [facility] HEMOGLOBIN A1C [id number] 16:48:00 Test Item Value Reference Range Interpretation Comments POCT HBA1C (test code = 4548-4) 12.9 % 4-6 A Lab Interpretation (test code = Abnormal 89759-1) [facility] HEMOGLOBIN A1C [id number] 20:45:00 Test Item Value Reference Range Interpretation Comments POCT HBA1C (test code = 4548-4) 11.7 % 4-6 A Lab Interpretation (test code = Abnormal 90989-3) [facility] Notes Date/Time Note Provider Source 2023-01-11 [facility] 10:34:56-00:00 NOV: 03/03/23 VERONICA: 11/18/22 Refill sent 2023-01-08 Formatting of this note is different fro m the original. Manuela Herr [facility] 12:04:43-00:00 CLINICAL PHARMACY ENDOCRINOLOGY VISIT DATE: 01/08/2023 Subjective: Carter Hodge is a 62 year old y/o male referred to PharmD clinic by Dr. Cheri Simms MD for medication management for type 2 diabetes. At last visit, patient was instructed to: Take Basaglar 15 units DAILY Continue metformin 1000mg twice daily Continue Ozempic 1mg weekly Patient has not been checkin g his sugars lately. He has been taking his Basaglar 16 units daily since his last visit with PharmD. He continues to take Ozempic 1mg on and takes metformin 2000 m g once daily. He denies any GI side effects; also denies signs/symptoms of lows. -SOCIAL HISTORY- Tobacco: none Alcohol: none Exercise: walks 3x a week (2 miles; 45 min) -DIET- 2 meals Bfast: eggs, sausage, toast, orange juice someti mes Lunch: none Supper: cheeseburger, fries, every now and then: chicken fried steak, mashed potatoes, green beans, corn Snacks: once a week eats an apple Drinks/caffeine: water; occasionally unsweet tea 1. DIABETES Patient reports a >20 year duration of Type 2 di abetes. Symptoms of hypoglycemia: [-] Dizziness [-] Fatigue [-] Sweating [-] Nervousness [-] Tachycardia Symptoms of hyperglycemia: [+] Polyuria-- on a catheter [-] Polydipsia [-] Polyphagia [-] Visual changes Complications of diabetes: Macrovascular: [-] UT [-] CABG/PCI/other re-vascularization procedure Microvascular [-] Retinopathy (last eye exam 2021) [+] Nephropathy [-] Neuropathy Current DM medication regimen: Ozempic 1mg weekly (on ) Metformin 1000mg twice daily Patient taking 2000 mg once daily Basaglar 16 units once daily Med compliance [+] SMBG readings: none available Objective: Past Medical History: Diagnosis Date Diabetes mellitus Gout Hypertension Vitamin D deficiency 07/24/2021 Prior to Admission medications Medication Sig Start Date Authorizing Provider ergocalciferol, vitamin d2, 1,250 mcg (50,000 unit) capsule TAKE ONE CAPSULE BY MOUTH WEEKLY 11/26/22 Osmany Alfredo MD lisinopriL 40 mg tablet Take 1 tablet by mouth in the morning. 11/26/22 Osmany Alfredo MD fenofibrate 145 mg tablet Ta ke 1 tablet by mouth in the morning. 11/18/22 Cheri Simms MD semaglutide (OZEMPIC) 1 mg/d ose (4 mg/3 mL) PnIj inject 1 mg under the skin weekly. 11/18/22 Cheri Simms MD Insulin Glargine (BASAGLAR K WIROSARIOEN U-100 INSULIN) 100 unit/mL (3 mL) injection inject 45 Units under the skin in the morning. 10/26/22 Osmany Alfredo MD fluorouraciL 5 % cream 08/07/22 Doctor Unassigned , [place] Nitrofurantoin&Nit. Macrocry st 100 mg capsule 09/29/22 Doctor Unassigned, [place] Vitamin B-12 100 mcg tablet Take 0.5 tablets by mouth in the morning. Doctor Unassigned, [place] ALLOPURINOL 100 mg tablet TA KE TWO TABLETS BY MOUTH EVERY MORNING 09/17/22 Osmany Alfredo MD metformin ER 500 mg 24 hr ta blet Take 2 tablets by mouth in the morning and 2 tablets in the evening. 09/09/22 Osmany Alfredo MD nebivoloL 10 mg tablet Take 1 tablet by mouth in the morning. 09/09/22 Osmany Alfredo MD amLODIPine 10 mg tablet Take 1 tablet by mouth in the morning. 07/16/22 Osmany Alfredo MD atorvastatin 40 mg tablet Ta ke 1 tablet by mouth at bedtime. 07/16/22 Osmany Alfredo MD insulin aspart U-100 (NOVOLO G FLEXPEN U-100 INSULIN) 100 unit/mL (3 mL) injection inject 10 Units under the skin in the morning and 10 Units at noon and 10 Units in the evening. inject before meals. 07/16/22 Osmany Alfredo MD TAMSULOSIN 0.4 mg 24 hr caps ule TAKE ONE CAPSULE BY MOUTH EVERY MORNING 06/08/22 Janie Padron FNP Insulin [place], Disposable, (TRENA PEN NEEDLE) 32 gauge x 5/32" Ndle USE THREE TIMES A DAY DIRECTED 01/14/21 Hieu Patton MD needles, insulin disposable (BD ULTRAFINE ORIG PEN NEEDLES MISC) Doctor Unassigned, [place] Allergies/ADR: No Known Allergies Recent Labs 07/13/22 1043 07/13/22 1131 11/18/22 1056 HGBA1C -- 12.6* -- [id number] 12.9* -- 9.0* Assessment: 1. DIABETES Patient NOT controlled to goal A1c of 6-7.0% per ADA guidelines Patient has not been checkin g his sugars but has agreed to start checking 1-2x day between now and his upcoming visit with Dr. Simms Patient is currently on mode rate dose of Ozempic, max effective dose of metformin, and basal insulin Patient is tolerating Ozempic well Medication monitoring: [-] Metformin: eGFR <30mL/min [-] Semaglutide: pancreatitis, severe diabetic retinopathy, macular edema Plan/Recommendations: Continue Basaglar 16 units daily Continue metformin 1000mg twice daily OK to take 2000 mg daily if tolerated Continue Ozempic 1mg weekly Start checking sugars daily Will follow up in 1 month Future Appointments Provider Department Dept Phone 03/03/2023 11:30 AM Cheri Simms MD [facility] Endocrinology, [place] [phone] Time spent with patient/caregiver: 30 minutes Manuela Herr PharmD Pharmacy Clinical [employer] Endocrino [facility]y Electronically signed by Manuela Herr [facility] lennie marlow 01/08/2023 1:31 PM CDT 2022-12-04 Formatting of this note is different fro m the original. Manuela Herr [facility] 10:09:54-00:00 CLINICAL PHARMACY ENDOCRINOLOGY VISIT- 12/04/22 DATE: 12/04/22 Subjective: Carter Hodge is a 61 year old y/o male referred to PharmD clinic by Dr. Cheri Simms MD for medication management for type 2 diabetes. At last visit, patient was instructed to: Increase Ozempic to 1mg weekly Continue metformin 1000mg twice daily Continue Basaglar 15 units once daily Patient has not been checkin g his sugars lately. He has taken 2 doses of Ozempic 1mg so far and reports tolerating the higher dose well. He states that he has also been taking Basaglar once a week. Denies lows. -SOCIAL HISTORY- Tobacco: none Alcohol: none Exercise: walks 3x a week (2 miles; 45 min) -DIET- 2 meals Bfast: eggs, sausage, toast, orange juice someti mes Lunch: none Supper: cheeseburger, fries, every now and then: chicken fried steak, mashed potatoes, green beans, corn Snacks: once a week eats an apple Drinks/caffeine: water; occasionally unsweet tea 1. DIABETES Patient reports a >20 year duration of Type 2 di abetes. Symptoms of hypoglycemia: [-] Dizziness [-] Fatigue [-] Sweating [-] Nervousness [-] Tachycardia Symptoms of hyperglycemia: [+] Polyuria-- on a catheter [-] Polydipsia [-] Polyphagia [-] Visual changes Complications of diabetes: Macrovascular: [-] UT [-] CABG/PCI/other re-vascularization procedure Microvascular [-] Retinopathy (last eye exam 2021) [+] Nephropathy [-] Neuropathy Current DM medication regimen: Ozempic 1mg weekly (on Mondays) Metformin 1000mg twice daily Basaglar 15 units once daily Patient taking once a week Med compliance [-] takes Bas aglar once a week instead of daily; forgets metformin once a week SMBG readings: none available Objective: Past Medical History: Diagnosis Date Diabetes mellitus Gout Hypertension Vitamin D deficiency 07/24/2021 Home medications Medication Sig Start Date Authorizing Provider ergocalciferol, vitamin d2, 1,250 mcg (50,000 unit) capsule TAKE ONE CAPSULE BY MOUTH WEEKLY 11/26/22 Osmany Alfredo MD lisinopriL 40 mg tablet Take 1 tablet by mouth in the morning. 11/26/22 Osmany Alfredo MD fenofibrate 145 mg tablet Ta ke 1 tablet by mouth in the morning. 11/18/22 Cheri Simms MD semaglutide (OZEMPIC) 1 mg/d ose (4 mg/3 mL) PnIj inject 1 mg under the skin weekly. 11/18/22 Cheri Simms MD Insulin Glargine (BASAGLAR K WIKPEN U-100 INSULIN) 100 unit/mL (3 mL) injection inject 45 Units under the skin in the morning. 10/26/22 Osmany Alfredo MD fluorouraciL 5 % cream 08/07/22 Doctor Unassigned , [place] Nitrofurantoin&Nit. Macrocry st 100 mg capsule 09/29/22 Doctor Unassigned, [place] Vitamin B-12 100 mcg tablet Take 0.5 tablets by mouth in the morning. Doctor Unassigned, [place] ALLOPURINOL 100 mg tablet TA KE TWO TABLETS BY MOUTH EVERY MORNING 09/17/22 Osmany Alfredo MD metformin ER 500 mg 24 hr ta blet Take 2 tablets by mouth in the morning and 2 tablets in the evening. 09/09/22 Osmany Alfredo MD nebivoloL 10 mg tablet Take 1 tablet by mouth in the morning. 09/09/22 Osmany Alfredo MD amLODIPine 10 mg tablet Take 1 tablet by mouth in the morning. 07/16/22 Osmany Alfredo MD atorvastatin 40 mg tablet Ta ke 1 tablet by mouth at bedtime. 07/16/22 Osmany Alfredo MD insulin aspart U-100 (NOVOLO G FLEXPEN U-100 INSULIN) 100 unit/mL (3 mL) injection inject 10 Units under the skin in the morning and 10 Units at noon and 10 Units in the evening. inject before meals. 07/16/22 Osmany Alfredo MD TAMSULOSIN 0.4 mg 24 hr caps ule TAKE ONE CAPSULE BY MOUTH EVERY MORNING 06/08/22 Janie Padron FNP Insulin [place], Disposable, (TRENA PEN NEEDLE) 32 gauge x 5/32" Ndle USE THREE TIMES A DAY DIRECTED 01/14/21 Hieu Patton MD needles, insulin disposable (BD ULTRAFINE ORIG PEN NEEDLES MISC) Doctor Unassigned, [place] Allergies/ADR: No Known Allergies Recent Labs 07/13/22 1043 07/13/22 1131 11/18/22 1056 HGBA1C -- 12.6* -- [id number] 12.9* -- 9.0* Assessment: 1. DIABETES Patient NOT controlled to goal A1c of 6-7.0% per ADA guidelines Patient has not been checkin g his sugars but has agreed to start checking once daily Patient is currently on mode rate dose of Ozempic, max effective dose of metformin, and basal insulin Patient is tolerating Ozempic well Taking basal insulin weekly instead of daily due to confusion but has agreed to take daily Medication monitoring: [-] Metformin: eGFR <30mL/min [-] Semaglutide: pancreatitis, severe diabetic retinopathy, macular edema Plan/Recommendations: Take Basaglar 15 units DAILY Continue metformin 1000mg twice daily Continue Ozempic 1mg weekly Start checking sugars daily Will follow up in ~5-6 weeks Time spent with patient/caregiver: 30 minutes Manuela Herr, [facility] Pharmacy Clinical [employer] Endocrino [facility] Electronically signed by Manuela Herr RPH a t 12/04/2022 10:36 AM CDT
--- NOTE | 2023-01-12 04:22 | EDPHYS ---
Physician Documentation [facility] Name: Carter Hodge Age: 62 yrs Sex: Male : 1960 Arrival Date: 01/12/2023 Time: 03:07 Bed 20 Private MD: DAISHA Physician Ricardo Finney HPI: 01/12 04:15 This 62 yrs old Unknown Male presents to ER via Ambulatory with complaints of Problem scott With Urinary Catheter. 04:15 The patient presents with a Barrios catheter problem, is not draining, urinary symptoms, scott retention. Onset: The symptoms/episode began/occurred this morning. Modifying factors: The symptoms are alleviated by nothing, the symptoms are aggravated by nothing. Associated signs and symptoms: The patient has no apparent associated signs or symptoms. Severity of symptoms: At their worst the symptoms were mild, in the emergency department the symptoms are unchanged. The patient has not experienced similar symptoms in the past. Historical: - Allergies: 03:18 Latex, Natural Rubber; bp - PMHx: 03:18 Diabetes - IDDM; Gout; Hypertension; bp - Immunization history:: Adult Immunizations up to date. - Social history:: Smoking status: Patient denies any tobacco usage or history of. ROS: 04:17 Constitutional: Negative for fever, chills, and weight loss, Eyes: Negative for injury, scott pain, redness, and discharge, ENT: Negative for injury, pain, and discharge, Neck: Negative for injury, pain, and swelling, Cardiovascular: Negative for chest pain, palpitations, and edema, Respiratory: Negative for shortness of breath, cough, wheezing, and pleuritic chest pain, Abdomen/GI: Negative for abdominal pain, nausea, vomiting, diarrhea, and constipation, Back: Negative for injury and pain, MS/Extremity: Negative for injury and deformity, Skin: Negative for injury, rash, and discoloration, Neuro: Negative for headache, weakness, numbness, tingling, and seizure, Psych: Negative for depression, anxiety, suicide ideation, homicidal ideation, and hallucinations, Allergy/Immunology: Negative for hives, rash, and allergies, Endocrine: Negative for neck swelling, polydipsia, polyuria, polyphagia, and marked weight changes, Hematologic/Lymphatic: Negative for swollen nodes, abnormal bleeding, and unusual bruising. 04:17 : Positive for urinary symptoms. Exam: 04:17 Constitutional: This is a well developed, well nourished patient who is awake, alert, scott and in no acute distress. Head/Face: Normocephalic, atraumatic. Eyes: Pupils equal round and reactive to light, extra-ocular motions intact. Lids and lashes normal. Conjunctiva and sclera are non-icteric and not injected. Cornea within normal limits. Periorbital areas with no swelling, redness, or edema. ENT: Nares patent. No nasal discharge, no septal abnormalities noted. Tympanic membranes are normal and external auditory canals are clear. Oropharynx with no redness, swelling, or masses, exudates, or evidence of obstruction, uvula midline. Mucous membranes moist. Neck: Trachea midline, no thyromegaly or masses palpated, and no cervical lymphadenopathy. Supple, full range of motion without nuchal rigidity, or vertebral point tenderness. No Meningismus. Chest/axilla: Normal chest wall appearance and motion. Nontender with no deformity. No lesions are appreciated. Cardiovascular: Regular rate and rhythm with a normal S1 and S2. No gallops, murmurs, or rubs. Normal PMI, no JVD. No pulse deficits. Respiratory: Lungs have equal breath sounds bilaterally, clear to auscultation and percussion. No rales, rhonchi or wheezes noted. No increased work of breathing, no retractions or nasal flaring. Abdomen/GI: Soft, non-tender, with normal bowel sounds. No distension or tympany. No guarding or rebound. No evidence of tenderness throughout. Back: No spinal tenderness. No costovertebral tenderness. Full range of motion. Skin: Warm, dry with normal turgor. Normal color with no rashes, no lesions, and no evidence of cellulitis. MS/ Extremity: Pulses equal, no cyanosis. Neurovascular intact. Full, normal range of motion. Neuro: Awake and alert, GCS 15, oriented to person, place, time, and situation. Cranial nerves II-XII grossly intact. Motor strength 5/5 in all extremities. Sensory grossly intact. Cerebellar exam normal. Normal gait. Psych: Awake, alert, with orientation to person, place and time. Behavior, mood, and affect are within normal limits. 04:17 : CVA tenderness, is absent, Male external genitalia: hypospadius. Vital Signs: 03:16 BP 162 / 92; Pulse 103; Resp 16; Temp 98; Pulse Ox 94% ; bp 05:55 BP 96 / 67; Pulse 95; Resp 16; Pulse Ox 95% ; bp MDM: 04:09 Patient medically screened. scott 04:18 Differential diagnosis: UTI, Barrios catheter problem. Data reviewed: vital signs, nurses [facility] notes, lab test result(s), urinalysis. Consideration of Admission/Observation Escalation of care including admission/observation considered. I considered the following discharge prescriptions or medication management in the emergency department Medications were administered in the Emergency Department. See MAR. Test considered but Not performed: Labs: no labs. Care significantly affected by the following chronic conditions: Diabetes, Hypertension. 01/12 04:09 Order name: Urinalysis w/ reflexes [facility] 01/12 05:33 Order name: Urine Culture [facility] 01/12 04:09 Order name: Barrios; Complete Time: 04:42 [facility] 01/12 05:15 Order name: Misc. Order: PLEASE NOTE PVR; Complete Time: 05:17 [facility] Administered Medications: 05:00 Drug: Ciprofloxacin PO 500 mg Route: PO; bp 05:09 Follow up: Response: No adverse reaction bp Disposition Summary: 01/12/23 04:22 Discharge Ordered Location: Home [facility] Problem: new [facility] Symptoms: have improved scott Condition: Stable scott Diagnosis - Other mechanical complication of urinary (indwelling) catheter scott Followup: scott - With: Private Physician - When: 2 - 3 days - Reason: Recheck today's complaints, Continuance of care, Re-evaluation by your physician Followup: scott - With: [place] Bar[place] MD - When: 5 - 6 days - Reason: Recheck today's complaints, Continuance of care, Re-evaluation by your physician Discharge Instructions: - Discharge Summary Sheet scott - Indwelling Urinary Catheter Care, Adult scott - Indwelling Urinary Catheter Insertion at Home, Male [facility] Forms: - Medication Reconciliation Form [facility] - Thank You Letter [facility] - Antibiotic Education [facility] - Prescription Opioid Use scott - Patient Portal Instructions [facility] - Leadership Thank You Letter [facility] Prescriptions: - Cipro 250 mg Oral Tablet - take 1 tablet by ORAL route every 12 hours; 14 tablet; Refills: 0, Product scott Selection Permitted Signatures: Dispatcher [employer] Ricardo Klein MD MD cha Peltier, Brian, RN RN bp
--- NOTE | 2023-01-12 04:22 | ER ---
Nurse's Notes [facility] Name: Carter Hodge Age: 62 yrs Sex: Male : 1960 Arrival Date: 01/12/2023 Time: 03:07 Bed 20 Private MD: Diagnosis: Other mechanical complication of urinary (indwelling) catheter Presentation: 01/12 03:16 Chief complaint: Patient states: "I HAD A PROCEDURE DONE ON MY BLADDER AT 5, AND ABOUT bp AN HOUR AGO MY DAVILA STOPPED DRAINING.". Coronavirus screen: At this time, the client does not indicate any symptoms associated with coronavirus-19. Ebola Screen: No symptoms or risks identified at this time. Initial Sepsis Screen: Does the patient meet any 2 criteria? HR > 90 bpm. No. Patient's initial sepsis screen is negative. Does the patient have a suspected source of infection? No. Patient's initial sepsis screen is negative. Risk Assessment: Do you want to hurt yourself or someone else? Patient reports no desire to harm self or others. Onset of symptoms was January 12, 2023 at 02:00. 03:16 Method Of Arrival: Ambulatory bp 03:16 Acuity: JABARI 3 bp Triage Assessment: 03:18 General: Appears in no apparent distress. uncomfortable, Behavior is cooperative, bp appropriate for age, anxious. Pain: Complains of pain in pelvis. EENT: No deficits noted. Neuro: No deficits noted. Cardiovascular: Rhythm is sinus tachycardia. Respiratory: No deficits noted. GI: No signs and/or symptoms were reported involving the gastrointestinal system. : Davila in place. Derm: No deficits noted. Musculoskeletal: No deficits noted. Historical: - Allergies: 03:18 Latex, Natural Rubber; bp - PMHx: 03:18 Diabetes - IDDM; Gout; Hypertension; bp - Immunization history:: Adult Immunizations up to date. - Social history:: Smoking status: Patient denies any tobacco usage or history of. Screenin:19 [facility] ED Fall Risk Assessment (Adult) History of falling in the last 3 months, bp including since admission No falls in past 3 months (0 pts). Abuse screen: Denies threats or abuse. Denies injuries from another. Nutritional screening: No deficits noted. Tuberculosis screening: No symptoms or risk factors identified. Assessment: 03:19 General: SEE TRIAGE NOTE. bp 04:02 Reassessment: ATTEMPT TO IRRIGATE TO PROMOTE DRAINAGE UNSUCCESSFUL, NOTIFIED. bp 05:00 Reassessment: 400 CC UOP, <50 CC PVR. bp 05:55 Reassessment: DC HOME AMBULATORY. bp Vital Signs: 03:16 BP 162 / 92; Pulse 103; Resp 16; Temp 98; Pulse Ox 94% ; bp 05:55 BP 96 / 67; Pulse 95; Resp 16; Pulse Ox 95% ; bp ED Course: 03:08 Patient arrived in ED. ag3 03:16 Gibson Huang, RN is Primary Nurse. bp 03:17 Triage completed. bp 03:19 Arm band placed on. bp 03:19 Patient has correct armband on for positive identification. Bed in low position. Call bp light in reach. Side rails up X2. Adult w/ patient. 04:07 Ricardo Finney MD is Attending Physician. scott 04:21 South Barrera MD is Referral Physician. scott 04:42 Davila cath inserted, using sterile technique, 18 Fr., by ut, balloon inflated, returned bp cloudy urine. Patient tolerated well. 05:55 No provider procedures requiring assistance completed. Patient did not have IV access bp during this emergency room visit. Administered Medications: 05:00 Drug: Ciprofloxacin PO 500 mg Route: PO; bp 05:09 Follow up: Response: No adverse reaction bp Medication: 03:19 VIS not applicable for this client. bp Outcome: 04:22 Discharge ordered by . scott 05:55 Discharged to home ambulatory. bp 05:55 Condition: stable 05:55 Discharge instructions given to patient, Instructed on discharge instructions, follow up and referral plans. medication usage, Demonstrated understanding of instructions, follow-up care, medications, Prescriptions given X 1. 05:56 Patient left the ED. bp Signatures: Ricardo Finney MD MD cha Peltier, Brian, RN RN bp Haq Susu ag3
[2023-01-12] MEDS ORDERED: CIPROFLOXACIN HCL 500 MG TAB ONE (05:04)
[2023-01-12 05:29] LABS: Specific Gravity 1.025 (1.005-1.030); Urine Bacteria <20 /HPF (<20); Urine Bilirubin NEGATIVE (Negative); Urine Blood 3+ (OVER) (Negative); Urine Clarity Extremely Turbid (Clear); Urine Color Light-Orange (Yellow); Urine Glucose 4+ (Over) (Negative); Urine Mucus Slight /HPF (None Seen); Urine Protein 2+ (Negative); Urine RBC >50 /HPF (None Seen); Urine Triple Phosphate Crystal Moderate /HPF (None Seen); Urine Urobilinogen Normal (Normal)
[2023-01-12 06:01] VITALS: TEMP 98
[2023-01-12 06:02] VITALS: BP 96/67; O2SAT 95
== END 2023-01-12 05:56 | disposition home or self-care (01) ==
LOC: ER 03:07
DX: T83.098A Other mechanical complication of other urinary catheter, initial encounter (principal); E11.9 Type 2 diabetes mellitus without complications; I10 Essential (primary) hypertension; Z91.040 Latex allergy status; Z91.048 Other nonmedicinal substance allergy status
CPT/HCPCS: 51702; 81001; 87077; 87086; 87088; 87186; 99284

== ENCOUNTER 2023-03-11 07:23 | Day surgery (SDC) | payer OTHER ==
[2023-03-09 10:07] LABS: Protime INR 0.93
[2023-03-11] MEDS ORDERED: NA CHLORIDE 0.9% 1,000 ML ONE (07:54)
[2023-03-11] MEDS ORDERED: INSULIN REGULAR (HUMAN) 100 UNIT/ML ONE (08:13)
[2023-03-11] MEDS ORDERED: propofoL 200 MG/20 ML VIAL IV ONE (08:22)
[2023-03-11] MEDS ORDERED: FENTANYL CITR 100 MCG/2 ML ONE (08:22)
[2023-03-11] MEDS ORDERED: MIDAZOLAM HCL 2 MG/2 ML INJ ONE (08:22)
[2023-03-11] MEDS ORDERED: LIDOCAINE 1% MPF 5 ML VIAL ONE (08:22)
[2023-03-11] MEDS ORDERED: KETOROLAC 30 MG/ML INJ ONE (08:22)
[2023-03-11] MEDS ORDERED: ONDANSETRON 4 MG/2 ML VIAL ONE (08:23)
[2023-03-11] MEDS ORDERED: CEFAZOLIN SODIUM 2 GM/VIAL ONE (08:51)
[2023-03-11 16:25] VITALS: BP 141/84; TEMP 98.4; O2SAT 99
== END 2023-03-11 09:21 | disposition home or self-care (01) ==
LOC: OR 07:23
PROVIDERS: ATTEND Urology
DX: N40.0 Benign prostatic hyperplasia without lower urinary tract symptoms (principal); Z53.09 Procedure and treatment not carried out because of other contraindication
CPT/HCPCS: 87088; 87086; 36415; 85610; 82947 ×3; 87077; 87186; 83036; J1815; J7030; J2001; J2250; J2405; J2704; J3010

== ENCOUNTER → 2023-05-12 | Emergency (ER) | payer OTHER ==
--- OUTSIDE RECORDS SUMMARY | 2023-05-12 02:39 | XMS REPORT | Continuity of Care Document ---
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 Mechanic Name Role Phone [facility] Attending Clinician Unavailabl e Problems Condition Name Condition Details Condition Category Status Onset Date Resolution Date Last Treatment Date Treating Clinician Comments Source [id number] Penile hypospadia s Problem [facility] [id number] Other obstructiv e and reflux uropathy Problem [facility] [id number] Detrusor instabilit y Problem [facility] Altered mental status Altered mental status, unspecifie d Problem [facility] [id number] Urinary incontinen ce without sensory awareness Problem [facility] 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 Problem [facility] [id number] Urinary retention Problem [facility] [id number] Gross hematuria Problem [facility] [id number] Lower obstructiv e uropathy Problem [facility] [id number] Detrusor dysfunctio n Problem [facility] Hypospadia s Hypospadia s Problem [facility] [id number] Type 2 diabetes mellitus with other specified complicati on Problem [facility] [id number] Benign prostatic hyperplasi a with lower urinary tract symptoms Problem Common [facility] Social History Social Habit Start Date Stop Date Quantity Comments Source History of Tobacco Use [facility] Sex Assigned At [facility] Smoking Status Start Date Stop Date Source Never Smoker [facility] Medications Ordered Medication Name Filled Medication Name Start Date Stop Date Current Medication? Ordering Clinician Indication Dosage Frequency Signature (SIG) Comments Components Source Cephalexin 500 MG Cephalexin 500 MG 2022-05 0 00:00: 00 No 1{capsu le} TID Cephalexin 500 MG Cephalexin 500 MG Cephalexin 500 MG 2022-05 030 00:00: 00 No 1{capsu le} TID Cephalexin 500 MG Cephalexin 500 MG Cephalexin 500 MG 2022-05 0 00:00: 00 No 1{capsu le} TID Cephalexin 500 MG Cephalexin 500 MG Cephalexin 500 MG 2022-05 0 00:00: 00 No 1{capsu le} TID Cephalexin 500 MG Cephalexin 500 MG Cephalexin 500 MG 2022-05 030 00:00: 00 No 1{capsu le} TID Cephalexin 500 MG Allopurinol 100 MG Allopurinol 100 MG No Allopurino l 100 MG Lisinopril 40 MG Lisinopril 40 MG No Lisinopril 40 MG metFORMIN HCl ER 500 MG metFORMIN HCl ER 500 MG No 1{table t_with_ evening _meal} QD metFORMIN HCl ER 500 MG Nebivolol HCl 10 MG Nebivolol HCl 10 MG No Nebivolol HCl 10 MG amLODIPine Besylate 10 MG amLODIPine Besylate 10 MG No amLODIPine Besylate 10 MG Tamsulosin HCl 0.4 MG Tamsulosin HCl 0.4 MG No Tamsulosin HCl 0.4 MG Vitamin D (Ergocalcif peggy) 1.25 MG (49506 UT) Vitamin D (Ergocalcif peggy) 1.25 MG (33181 UT) No Vitamin D (Ergocalci ferol) 1.25 MG (57719 UT) Meloxicam 15 MG Meloxicam 15 MG No Meloxicam 15 MG Basaglar KwikPen 100 UNIT/ML Basaglar KwikPen 100 UNIT/ML No Basaglar KwikPen 100 UNIT/ML Atorvastati n Calcium 40 MG Atorvastati n Calcium 40 MG No Atorvastat in Calcium 40 MG Atorvastati n Calcium 40 MG Atorvastati n Calcium 40 MG No Atorvastat in Calcium 40 MG Meloxicam 15 MG Meloxicam 15 MG No Meloxicam 15 MG Vitamin D (Ergocalcif peggy) 1.25 MG (49077 UT) Vitamin D (Ergocalcif peggy) 1.25 MG (53423 UT) No Vitamin D (Ergocalci ferol) 1.25 MG (57669 UT) metFORMIN HCl ER 500 MG metFORMIN HCl ER 500 MG No 1{table t_with_ evening _meal} QD metFORMIN HCl ER 500 MG Basaglar KwikPen 100 UNIT/ML Basaglar KwikPen 100 UNIT/ML No Basaglar KwikPen 100 UNIT/ML Tamsulosin HCl 0.4 MG Tamsulosin HCl 0.4 MG No Tamsulosin HCl 0.4 MG Nebivolol HCl 10 MG Nebivolol HCl 10 MG No Nebivolol HCl 10 MG Allopurinol 100 MG Allopurinol 100 MG No Allopurino l 100 MG amLODIPine Besylate 10 MG amLODIPine Besylate 10 MG No amLODIPine Besylate 10 MG Lisinopril 40 MG Lisinopril 40 MG No Lisinopril 40 MG Allopurinol 100 MG Allopurinol 100 MG No Allopurino l 100 MG Lisinopril 40 MG Lisinopril 40 MG No Lisinopril 40 MG metFORMIN HCl ER 500 MG metFORMIN HCl ER 500 MG No 1{table t_with_ evening _meal} QD metFORMIN HCl ER 500 MG Nebivolol HCl 10 MG Nebivolol HCl 10 MG No Nebivolol HCl 10 MG amLODIPine Besylate 10 MG amLODIPine Besylate 10 MG No amLODIPine Besylate 10 MG Tamsulosin HCl 0.4 MG Tamsulosin HCl 0.4 MG No Tamsulosin HCl 0.4 MG Vitamin D (Ergocalcif peggy) 1.25 MG (70723 UT) Vitamin D (Ergocalcif peggy) 1.25 MG (63138 UT) No Vitamin D (Ergocalci ferol) 1.25 MG (12073 UT) Meloxicam 15 MG Meloxicam 15 MG No Meloxicam 15 MG Basaglar KwikPen 100 UNIT/ML Basaglar KwikPen 100 UNIT/ML No Basaglar KwikPen 100 UNIT/ML Atorvastati n Calcium 40 MG Atorvastati n Calcium 40 MG No Atorvastat in Calcium 40 MG Allopurinol 100 MG Allopurinol 100 MG No Allopurino l 100 MG Lisinopril 40 MG Lisinopril 40 MG No Lisinopril 40 MG metFORMIN HCl ER 500 MG metFORMIN HCl ER 500 MG No 1{table t_with_ evening _meal} QD metFORMIN HCl ER 500 MG Nebivolol HCl 10 MG Nebivolol HCl 10 MG No Nebivolol HCl 10 MG amLODIPine Besylate 10 MG amLODIPine Besylate 10 MG No amLODIPine Besylate 10 MG Tamsulosin HCl 0.4 MG Tamsulosin HCl 0.4 MG No Tamsulosin HCl 0.4 MG Vitamin D (Ergocalcif peggy) 1.25 MG (14956 UT) Vitamin D (Ergocalcif peggy) 1.25 MG (94811 UT) No Vitamin D (Ergocalci ferol) 1.25 MG (65100 UT) Meloxicam 15 MG Meloxicam 15 MG No Meloxicam 15 MG Basaglar KwikPen 100 UNIT/ML Basaglar KwikPen 100 UNIT/ML No Basaglar KwikPen 100 UNIT/ML Atorvastati n Calcium 40 MG Atorvastati n Calcium 40 MG No Atorvastat in Calcium 40 MG Allopurinol 100 MG Allopurinol 100 MG No Allopurino l 100 MG Lisinopril 40 MG Lisinopril 40 MG No Lisinopril 40 MG metFORMIN HCl ER 500 MG metFORMIN HCl ER 500 MG No 1{table t_with_ evening _meal} QD metFORMIN HCl ER 500 MG Nebivolol HCl 10 MG Nebivolol HCl 10 MG No Nebivolol HCl 10 MG amLODIPine Besylate 10 MG amLODIPine Besylate 10 MG No amLODIPine Besylate 10 MG Tamsulosin HCl 0.4 MG Tamsulosin HCl 0.4 MG No Tamsulosin HCl 0.4 MG Vitamin D (Ergocalcif peggy) 1.25 MG (36751 UT) Vitamin D (Ergocalcif peggy) 1.25 MG (91980 UT) No Vitamin D (Ergocalci ferol) 1.25 MG (21771 UT) Meloxicam 15 MG Meloxicam 15 MG No Meloxicam 15 MG Basaglar KwikPen 100 UNIT/ML Basaglar KwikPen 100 UNIT/ML No Basaglar KwikPen 100 UNIT/ML Atorvastati n Calcium 40 MG Atorvastati n Calcium 40 MG No Atorvastat in Calcium 40 MG Vital Signs Vital Name Observation Time Observation Value Comments Cat santiago height 2023-01-11 16:15:00 71 [in_i] Commo n [facility] weight 2023-01-11 16:15:00 205 [lb_av] Comm on [facility] temperature 2023-01-11 16:15:00 98.6 [degF] Com [facility] bmi 2023-01-11 16:15:00 28.59 kg/m2 Comm on [facility] oximetry 2023-01-11 16:15:00 99 % Commo n [facility] respiratory rate 2023-01-11 16:15:00 18 /min [facility] blood pressure systolic 2023-01-11 16:15:00 132 mm[Hg] Common [facility] blood pressure diastolic 2023-01-11 16:15:00 68 mm[Hg] [facility] weight 2022-12-28 12:00:00 209 [lb_av] Comm on [facility] temperature 2022-12-28 12:00:00 97.8 [degF] Com [facility] bmi 2022-12-28 12:00:00 29.15 kg/m2 Comm on [facility] oximetry 2022-12-28 12:00:00 96 % Commo n [facility] respiratory rate 2022-12-28 12:00:00 17 /min [facility] blood pressure systolic 2022-12-28 12:00:00 136 mm[Hg] [facility] blood pressure diastolic 2022-12-28 12:00:00 73 mm[Hg] Common [facility] height 2022-12-28 12:00:00 71 [in_i] Commo n [facility] height 2022-12-09 13:45:00 71 [in_i] Commo n [facility] weight 2022-12-09 13:45:00 218 [lb_av] Comm on [facility] temperature 2022-12-09 13:45:00 97.3 [degF] Com mon [facility] bmi 2022-12-09 13:45:00 30.4 kg/m2 Commo n [facility] oximetry 2022-12-09 13:45:00 99 % Commo n [facility] respiratory rate 2022-12-09 13:45:00 18 /min [facility] blood pressure systolic 2022-12-09 13:45:00 126 mm[Hg] Common [facility] blood pressure diastolic 2022-12-09 13:45:00 68 mm[Hg] Common [facility] height 2022-10-28 14:30:00 71 [in_i] Commo n [facility] weight 2022-10-28 14:30:00 210 [lb_av] Comm on [facility] temperature 2022-10-28 14:30:00 97.6 [degF] Com mon [facility] bmi 2022-10-28 14:30:00 29.29 kg/m2 Comm on [facility] oximetry 2022-10-28 14:30:00 99 % Commo n [facility] respiratory rate 2022-10-28 14:30:00 18 /min [facility] blood pressure systolic 2022-10-28 14:30:00 82 mm[Hg] [facility] blood pressure diastolic 2022-10-28 14:30:00 54 mm[Hg] [facility] Encounters Start Date/Time End Date/Time Encounter Type Admission Type Attending [facility] Care Department Encounter ID Source 2022-10-28 13:34:02 Outpatient Osmany Newton [facility] [id number] [facility] 2023-01-11 00:00:00 2023-01-11 00:00:00 OFFICE VISIT ESTAB PT LEVEL 5 [facility] [id number] [facility] 2022-12-28 00:00:00 2022-12-28 00:00:00 OFFICE VISIT ESTAB PT LEVEL 3 [facility] [id number] [facility] 2022-12-17 00:00:00 2022-12-17 00:00:00 (PROC) Procedure [facility]C [facility] [id number] [facility] 2022-12-09 00:00:00 2022-12-09 00:00:00 OFFICE VISIT ESTAB PT LEVEL 2 [facility]C ST[facility]C [id number] [facility] 2022-10-28 00:00:00 2022-10-28 00:00:00 OFFICE VISIT ESTAB PT LEVEL 4 [facility]LMLC STLMLC [id number] [facility]
--- NOTE | 2023-05-12 03:21 | ER ---
Nurse's Notes [facility] Name: Carter Hodge Age: 62 yrs Sex: Male : 1960 Arrival Date: 05/12/2023 Time: 02:34 Bed 11 Private MD: Diagnosis: Other mechanical complication of urinary (indwelling) catheter;Arzate catheter occlusion, Arzate associated UTI, Presentation: 05/12 02:52 Chief complaint: Patient states: arzate not draining x 3 hours last changed at end of March by Dr Barrera. Coronavirus screen: Vaccine status: Patient reports receiving the 2nd dose of the covid vaccine. Ebola Screen: Patient negative for fever greater than or equal to 101.5 degrees Fahrenheit, and additional compatible Ebola Virus Disease symptoms. Initial Sepsis Screen: Does the patient meet any 2 criteria? No. Patient's initial sepsis screen is negative. Does the patient have a suspected source of infection? No. Patient's initial sepsis screen is negative. Risk Assessment: Do you want to hurt yourself or someone else? Patient reports no desire to harm self or others. 02:52 Method Of Arrival: Ambulatory kl 02:52 Acuity: JABARI 3 kl Triage Assessment: 02:56 General: Appears uncomfortable, Behavior is calm, cooperative. Pain: Complains of pain kl in pelvis. : Arzate in place no urine noted large amount of sentiment in tube. 02:59 GI: Abdomen is large abdominal hernia. Historical: - Allergies: 03:10 No Known Allergies; kl - PMHx: 02:54 Diabetes mellitus; BPH; kl - Immunization history:: Adult Immunizations up to date. - Social history:: Smoking status: Patient denies any tobacco usage or history of. - Family history:: not pertinent. Screenin:09 [facility] ED Fall Risk Assessment (Adult) History of falling in the last 3 months, including since admission No falls in past 3 months (0 pts) Confusion or Disorientation No (0 pts) Intoxicated or Sedated No (0 pts) Impaired Gait No (0 pts) Mobility Assist Device Used No (0 pt) Altered Elimination No (0 pt) Score/Fall Risk Level 0 - 2 = Low Risk Oriented to surroundings, Maintained a safe environment. Abuse screen: Denies threats or abuse. Nutritional screening: No deficits noted. Tuberculosis screening: No symptoms or risk factors identified. Assessment: 03:09 Reassessment: Patient appears in no apparent distress at this time. No changes from previously documented assessment. 03:46 Reassessment: Patient denies pain at this time. Patient states feeling better. Patient kl states symptoms have improved. : Arzate in place to gravity drainage. Vital Signs: 02:52 BP 150 / 88; Pulse 96; Resp 20; Temp 98.5(O); Pulse Ox 100% ; Weight 90.72 kg (R); kl Height 5 ft. 11 in. ; 03:47 BP 147 / 80; Pulse 82; Resp 18; Pulse Ox 97% on R/A; kl 02:52 Body Mass Index 27.89 (90.72 kg, 180.34 cm) ED Course: 02:39 Patient arrived in ED. gm2 02:50 Sam Oliva MD is Attending Physician. sp4 02:54 Triage completed. 03:09 Patient has correct armband on for positive identification. Bed in low position. Call light in reach. 03:20 South Barrera MD is Referral Physician. sp4 03:47 No provider procedures requiring assistance completed. Arzate cath inserted, using sterile technique, 18 Fr., Patient tolerated well. Patient did not have IV access during this emergency room visit. 03:51 Urinalysis W/Microscopic Sent. oe Administered Medications: No medications were administered Medication: 03:47 VIS not applicable for this client. Outcome: 03:21 Discharge ordered by . sp4 03:47 Discharged to home ambulatory, with family, 03:47 Condition: improved 03:47 Discharge instructions given to patient, family, Instructed on discharge instructions, follow up and referral plans. medication usage, Demonstrated understanding of instructions, follow-up care, medications, Prescriptions given X 1, 03:48 Patient left the ED. Signatures: Wendi Cole RN RN Tejas Hughes Sergey, MD MD sp4 Sybil Gentile gm2 Corrections: (The following items were deleted from the chart) 02:56 02:54 Allergies: Latex; [facility] 02:56 02:54 Allergies: Latex; [facility] 02:56 02:54 Allergies: Latex; [facility] 02:56 02:54 PMHx: Diabetes - IDDM; kl kl 02:56 02:54 PMHx: Gout; kl kl 02:54 PMHx: Hypertension; kl kl 56 02:54 PMHx: BPH (Hypertension); kl kl 03:10 02:54 Allergies: Latex, Natural Rubber [Inactive]; kl kl
--- NOTE | 2023-05-12 03:21 | EDPHYS ---
Physician Documentation [facility] Name: Carter Hodge Age: 62 yrs Sex: Male : 1960 Arrival Date: 05/12/2023 Time: 02:34 Bed 11 Private MD: ED Physician Sam Oliva HPI: 05/12 02:50 This 62 yrs old Male presents to ER via Unassigned with complaints of Problem With sp4 Urinary Catheter. 03:18 62-year-old male presents with obstructed urinary catheter. Patient states his catheter sp4 has not been exchanged since February. . Historical: - Allergies: 03:10 No Known Allergies; kl - PMHx: 02:54 Diabetes mellitus; BPH; kl - Immunization history:: Adult Immunizations up to date. - Social history:: Smoking status: Patient denies any tobacco usage or history of. - Family history:: not pertinent. ROS: 03:18 Constitutional: Negative for fever, chills, and weight loss, positive For bladder pain sp4 and obstructed urinary catheter. 03:18 All other systems are negative, Exam: 03:18 Constitutional: This is a well developed, well nourished patient who is awake, alert, sp4 and in no acute distress. Bili obese male with indwelling Barrios catheter Head/Face: Normocephalic, atraumatic. Eyes: Pupils equal round and reactive to light, extra-ocular motions intact. Lids and lashes normal. Conjunctiva and sclera are not injected. Cornea within normal limits. Periorbital areas with no swelling, redness, or edema. ENT: Nares patent. No nasal discharge, no septal abnormalities noted. Tympanic membranes are normal and external auditory canals are clear. Oropharynx with no redness, swelling, or masses, exudates, or evidence of obstruction, uvula midline. Mucous membranes moist. Neck: Trachea midline, no thyromegaly or masses palpated, and no cervical lymphadenopathy. Supple, full range of motion without nuchal rigidity, or vertebral point tenderness. Chest/axilla: Normal chest wall appearance and motion. Nontender with no deformity. No lesions are appreciated. Cardiovascular: Regular rate and rhythm with a normal S1 and S2. No gallops, murmurs, or rubs. Normal PMI, no JVD. No pulse deficits. Respiratory: Lungs have equal breath sounds bilaterally, clear to auscultation and percussion. No rales, rhonchi or wheezes noted. No increased work of breathing, no retractions or nasal flaring. Abdomen/GI: Soft, non-tender, with normal bowel sounds. No distension or tympany. No guarding or rebound. No evidence of tenderness throughout. Back: No spinal tenderness. No costovertebral tenderness. Male : Normal genitalia with no discharge or lesions. 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 Barrios catheter was exchanged on exam with return of cloudy urine. Skin: Warm, dry with normal turgor. Normal color with no rashes, no lesions, and no evidence of cellulitis. MS/ Extremity: Pulses equal, no cyanosis. Neurovascular intact. Full, normal range of motion. Neuro: Awake and alert, GCS 15, oriented to person, place, time, and situation. Cranial nerves II-XII grossly intact. Motor strength 5/5 in all extremities. Sensory grossly intact. Psych: Awake, alert, with orientation to person, place and time. Behavior, mood, and affect are within normal limits Vital Signs: 02:52 BP 150 / 88; Pulse 96; Resp 20; Temp 98.5(O); Pulse Ox 100% ; Weight 90.72 kg (R); kl Height 5 ft. 11 in. ; 03:47 BP 147 / 80; Pulse 82; Resp 18; Pulse Ox 97% on R/A; kl 02:52 Body Mass Index 27.89 (90.72 kg, 180.34 cm) kl MDM: 03:01 Patient medically screened. sp4 03:18 Differential Diagnosis altered mental status, sepsis, flu. Data reviewed: vital signs, sp4 nurses notes. ED course: Barrios catheter was exchanged by on exam.. Barrios catheter is draining well. Will send urinalysis will preemptively treat with cephalexin p.o. twice a day for 10 days. . 05/12 03:17 Order name: Urinalysis W/Microscopic sp4 05/12 03:17 Order name: Barrios; Complete Time: 03:51 sp4 05/12 03:17 Order name: Leg Bag; Complete Time: 03:51 sp4 Administered Medications: No medications were administered Disposition Summary: 05/12/23 03:21 Discharge Ordered Notes: Location: Home sp4 Problem: new sp4 Symptoms: have improved sp4 Condition: Stable sp4 Diagnosis - Other mechanical complication of urinary (indwelling) catheter sp4 - Barrios catheter occlusion, Barrios associated UTI, sp4 Followup: sp4 - With: South Barrera MD - When: 7 - 10 days - Reason: Recheck today's complaints Discharge Instructions: - Discharge Summary Sheet sp4 - Indwelling Urinary Catheter Care, Adult, [id number] sp4 Forms: - Patient Portal Instructions sp4 Prescriptions: - Cephalexin 500 mg Oral Capsule - take 1 capsule ORAL route every 12 hours for 10 days; 20 capsule; Refills: 0, sp4 Product Selection Permitted Signatures: Dispatcher [employer] Wendi Herrera RN RN kl Potepalov, Sergey, MD MD sp4 Corrections: (The following items were deleted from the chart) 02:56 02:54 Allergies: Latex; kl kl 02:56 02:54 Allergies: Latex; kl kl 02:56 02:54 Allergies: Latex; kl kl 02:56 02:54 PMHx: Diabetes - IDDM; kl kl 02:56 02:54 PMHx: Gout; kl kl 02:56 02:54 PMHx: Hypertension; kl kl 02:56 02:54 PMHx: BPH (Hypertension); kl kl 03:10 02:54 Allergies: Latex, Natural Rubber [Inactive]; kl kl
[2023-05-12 04:11] LABS: Specific Gravity 1.023 (1.005-1.030); Urine Bacteria 20-50 /HPF (<20); Urine Bilirubin NEGATIVE (Negative); Urine Blood 2+ (Negative); Urine Clarity Extremely Turbid (Clear); Urine Color Yellow (Yellow); Urine Glucose NEGATIVE (Negative); Urine Mucus 1+ /HPF (None Seen); Urine Protein 1+ (Negative); Urine RBC >50 /HPF (None Seen); Urine Urobilinogen Normal (Normal); Urine WBC Clump Occasional /HPF (None Seen)
[2023-05-12 07:57] VITALS: TEMP 98.5
[2023-05-12 08:04] VITALS: BP 147/80; O2SAT 97
== END ==
LOC: ER 02:34
DX: T83.098A Other mechanical complication of other urinary catheter, initial encounter (principal); T83.518A Infection and inflammatory reaction due to other urinary catheter, initial encounter; E11.9 Type 2 diabetes mellitus without complications
CPT/HCPCS: 51702; 81001; 87077; 87086; 87088; 87186; 99284

== ENCOUNTER 2023-08-12 01:41 | Emergency (ER) | payer OTHER ==
--- OUTSIDE RECORDS SUMMARY | 2023-08-12 01:59 | XMS REPORT | Continuity of Care Document ---
Author Name Unknown Address [address] [facility] [address] [place] [id number] [facility] Address [address] [facility] [address] [place] [address] Care Team Providers Care Engineer Technician Name Role Phone Osmany Newton MD Primary Care Physician [phone] Osmany Newton Attending Clinician Unavailabl NICHOLE Jon Attending Clinician Unavailable Juan Jose Cordvoa - Ernie Attending Clinician Unavailable Nichole Appiah Attending Clinician [phone] Osmany Newton MD Attending Clinician [phone] Doctor Unassigned, [place] Attending Clinician U eliazar Ferreira RN, Susu Monique Attending Clinician Jovana Cheri Coelho MD Attending Clinician [phone] [facility]ending [facility]ician Unavail able CHERI SIMMS Attending Clinician Unavailable OSMANY NEWTON Attending Clinician Unavailable Janie Schofield Attending Clinician [phone] Nurse, Adc Surgery Gu Attending Clinician Josh Sequeira MD, [place] Attending Clinician [phone] CHEKO SEQUEIRA Attending Clinician Unavailable PENNY SUE Attending Clinician Unavailab Penny Dow DO Attending Clinician [phone] DULCE FONTANA Attending Clinician Unavailable Dulce Fontana MD Attending Clinician [phone] Jenny Mijares Attending Clinician [phone] SERVANDO LANDRY Attending Clinician Unavailable Servando Landry MD Attending Clinician [phone] DANNY BROCK Attending Clinician Unavailable Danny Brock MD Attending Clinician [phone] Joe CORDERO Attending Clinician Unavailable Consuelo PACJoe Attending Clinician [phone] JANIE PADRON Attending Clinician Unavaila ble , Adc Surg Spec Procedure Attending Clinician Unavailable 2, Ad[facility] Lab Attending Clinician Unavailable MIN RENE Attending Clinician UnavailMin Reyna MD Attending Clinician [phone] ARISTIDES LUX Attending Clinician Unavailable Merlyn SEAMER PANTY HOSE, Aristides B Attending Clinician [phone] SUKI BERMUDEZ Attending Clinician Unavailable Lara SEAMER PANTY HOSESuki Barajas Attending Clinician [phone] LEIF ANNE Attending Clinician Unavailable Leif Summers Attending Clinician [phone] Vianney Becker MD Attending Clinician [phone] Zahida Dubon MD Attending Clinician [phone] ZAHIDA DUBON Attending Clinician UnavailVIANNEY Cruz Attending Clinician Unavailable JENNY DENTON Attending Clinician Unavailable Hieu Patton MD Attending Clinician [phone] Caroline De La Paz Attending Clinician [phone] HIEU PATTON Attending Clinician Unavailable Po, Adc Lab Main Attending Clinician UnavailGLORY Taylor Attending Clinician Unavailable CLEMENT RIDER Attending Clinician Unavaila SUE Garcia Attending Clinician Unavailable CAROLINE BENAVIDEZ Attending Clinician UnavailPENNY [place]field Admitting Clinician Unavailab MIN Luo Admitting Clinician UnavailZAHIDA Partida Admitting Clinician Unavailjanet mejia Payers Payer Name Policy Type Policy Number Effective Date Expirati on Date Source Problems Condition Name Condition Details Condition Category Status Onset Date Resolution Date Last Treatment Date Treating Clinician Comments Source Dyslipidem ia Dyslipidem ia Disease Active 2022-05 1-17 00:00: 00 [facility] Urinary obstructio n Urinary obstructio n Disease Active 09-09 00:00: 00 [facility] Vitamin D deficiency Vitamin D deficiency Disease Active 3- 00:00: 00 [facility] Essential hypertensi on Essential hypertensi on Disease Active 07-16 00:00: 00 [facility] Mixed hyperlipid emia Mixed hyperlipid emia Disease Active 3 00:00: 00 [facility] Chronic gout with tophus, unspecifie d cause, 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, unspecifie d cause, unspecifie d site Disease Active 07-16 00:00: 00 [facility] Morbid obesity with BMI of 40.0-44.9, adult Morbid obesity with BMI of 40.0-44.9, adult Disease Active 07-16 00:00: 00 [facility] [id number] Penile hypospadia s Problem [facility] [id number] Other obstructiv e and reflux uropathy Problem [facility] [id number] Detrusor instabilit y Problem [facility] Altered mental status Altered mental status, unspecifie d Problem [facility] [id number] Urinary incontinen ce without sensory awareness Problem [facility] 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 Problem [facility] [id number] Urinary retention Problem [facility] [id number] Gross hematuria Problem [facility] [id number] Lower obstructiv e uropathy Problem [facility] [id number] Detrusor dysfunctio n Problem [facility] Hypospadia s Hypospadia s Problem [facility] [id number] Type 2 diabetes mellitus with other specified complicati on Problem [facility] [id number] Benign prostatic hyperplasi a with lower urinary tract symptoms Problem [facility] Allergies, Adverse Reactions, Alerts Allergy Name Allergy Type Status Severity Reaction(s) Onset Date Inactive Date Treating Clinician Comments Source NO KNOWN ALLERGIE S Drug Class Active [facility] Social History Social Habit Start Date Stop Date Quantity Comments Source History of Tobacco Use [facility] Sex Assigned At [facility] Gender identity [facility] Sexual orientation [facility] Alcohol intake 2023-07-30 00:00:00 2023-07-30 00:00:00 Ex-drinker (finding) [facility] History of Social function 2022-11-18 00:00:00 2022-11-18 00:00:00 [facility] Exposure to SARS-CoV-2 (event) 2022-09-25 00:00:00 2022-10-05 13:09:00 Not sure [facility] Tobacco use and exposure 2022-01-14 00:00:00 2022-01-14 00:00:00 Smokeless tobacco non-user [facility] History SDOH Alcohol Frequency 2020-07-16 00:00:00 2020-07-16 00:00:00 99 [facility] History SDOH Alcohol Std Drinks 2020-07-16 00:00:00 2020-07-16 00:00:00 99 [facility] History SDOH Alcohol Binge 2020-07-16 00:00:00 2020-07-16 00:00:00 99 [facility] Alcohol Comment 2020-07-16 00:00:00 2020-07-16 00:00:00 over 30 years ago [facility] Smoking Status Start Date Stop Date Source Unknown if ever smoked [facility] Never smoked tobacco [facility] Medications Ordered Medication Name Filled Medication Name Start Date Stop Date Current Medication? Ordering Clinician Indication Dosage Frequency Signature (SIG) Comments Components Source Cipro 500 MG Cipro 500 MG 3- 00:00: 00 No BID Cipro 500 MG AMLODIPINE 10 mg tablet 07-29 00:00: 00 Yes [id number] 10mg TAKE 1 TABLET BY MOUTH EVERY MORNING [facility] ATORVASTATI N 40 mg tablet 07-29 00:00: 00 Yes [id number] 40mg TAKE 1 TABLET BY MOUTH AT BEDTIME [facility] insulin aspart U-100 (NOVOLOG FLEXPEN U-100 INSULIN) 100 unit/mL (3 mL) injection 07-29 00:00: 00 Yes [id number] 10U inject 10 Units under the skin in the morning and 10 Units at noon and 10 Units in the evening. inject before meals. [facility] insulin degludec (TRESIBA FLEXTOUCH U-100) 100 unit/mL (3 mL) InPn 07-29 00:00: 00 Yes [id number] 23U inject 23 Units under the skin in the morning. [facility] metformin ER 500 mg 24 hr tablet 07-29 00:00: 00 Yes 1000mg Take 2 tablets by mouth in the morning and 2 tablets in the evening. [facility] semaglutide (OZEMPIC) 2 mg/dose (8 mg/3 mL) PnIj 07-29 00:00: 00 Yes [id number] 2mg inject 2 mg under the skin weekly. [facility] amLODIPine 10 mg tablet 07-29 00:00: 00 Yes [id number] 10mg Take 1 tablet by mouth every morning. [facility] atorvastati n 40 mg tablet 07-29 00:00: 00 Yes [id number] 40mg Take 1 tablet by mouth at bedtime. [facility] Insulin [place], Disposable, (TRENA PEN NEEDLE) 32 gauge x 5/32" Ndle 07-29 00:00: 00 Yes [id number] USE THREE TIMES A DAY DIRECTED [facility] insulin aspart U-100 (NOVOLOG FLEXPEN U-100 INSULIN) 100 unit/mL (3 mL) injection 07-29 00:00: 00 Yes [id number] 10U inject 10 Units under the skin in the morning and 10 Units at noon and 10 Units in the evening. inject before meals. [facility] insulin degludec (TRESIBA FLEXTOUCH U-100) 100 unit/mL (3 mL) InPn 07-29 00:00: 00 Yes [id number] 23U inject 23 Units under the skin in the morning. [facility] metformin ER 500 mg 24 hr tablet 07-29 00:00: 00 Yes 1000mg Take 2 tablets by mouth in the morning and 2 tablets in the evening. [facility] semaglutide (OZEMPIC) 2 mg/dose (8 mg/3 mL) PnIj 07-29 00:00: 00 Yes [id number] 2mg inject 2 mg under the skin weekly. [facility] amLODIPine 10 mg tablet 07-29 00:00: 00 Yes [id number] 10mg Take 1 tablet by mouth every morning. [facility] atorvastati n 40 mg tablet 07-29 00:00: 00 Yes [id number] 40mg Take 1 tablet by mouth at bedtime. [facility] Insulin [place], Disposable, (TRENA PEN NEEDLE) 32 gauge x 5/32" Ndle 07-29 00:00: 00 Yes [id number] USE THREE TIMES A DAY DIRECTED [facility] insulin aspart U-100 (NOVOLOG FLEXPEN U-100 INSULIN) 100 unit/mL (3 mL) injection 07-29 00:00: 00 Yes [id number] 10U inject 10 Units under the skin in the morning and 10 Units at noon and 10 Units in the evening. inject before meals. [facility] insulin degludec (TRESIBA FLEXTOUCH U-100) 100 unit/mL (3 mL) InPn 07-29 00:00: 00 Yes [id number] 23U inject 23 Units under the skin in the morning. [facility] metformin ER 500 mg 24 hr tablet 07-29 00:00: 00 Yes 1000mg Take 2 tablets by mouth in the morning and 2 tablets in the evening. [facility] semaglutide (OZEMPIC) 2 mg/dose (8 mg/3 mL) PnIj 07-29 00:00: 00 Yes [id number] 2mg inject 2 mg under the skin weekly. [facility] amLODIPine 10 mg tablet 07-29 00:00: 00 Yes [id number] 10mg Take 1 tablet by mouth every morning. [facility] atorvastati n 40 mg tablet 07-29 00:00: 00 Yes [id number] 40mg Take 1 tablet by mouth at bedtime. [facility] Insulin [place], Disposable, (TRENA PEN NEEDLE) 32 gauge x 5/32" Ndle 07-29 00:00: 00 Yes [id number] USE THREE TIMES A DAY DIRECTED [facility] AMLODIPINE 10 mg tablet 07-29 00:00: 00 07-29 00:00 :00 No [id number] 10mg TAKE 1 TABLET BY MOUTH EVERY MORNING [facility] ATORVASTATI N 40 mg tablet 07-29 00:00: 00 07-29 00:00 :00 No [id number] 40mg TAKE 1 TABLET BY MOUTH AT BEDTIME [facility] AMLODIPINE 10 mg tablet 07-29 00:00: 00 07-29 00:00 :00 No [id number] 10mg TAKE 1 TABLET BY MOUTH EVERY MORNING [facility] ATORVASTATI N 40 mg tablet 07-29 00:00: 00 07-29 00:00 :00 No [id number] 40mg TAKE 1 TABLET BY MOUTH AT BEDTIME [facility] insulin aspart U-100 (NOVOLOG FLEXPEN U-100 INSULIN) 100 unit/mL (3 mL) injection 06-28 00:00: 00 Yes [id number] 10U inject 10 Units under the skin in the morning and 10 Units at noon and 10 Units in the evening. inject before meals. [facility] insulin aspart U-100 (NOVOLOG FLEXPEN U-100 INSULIN) 100 unit/mL (3 mL) injection 12 00:00: 00 Yes [id number] 10U inject 10 Units under the skin in the morning and 10 Units at noon and 10 Units in the evening. inject before meals. [facility] insulin aspart U-100 (NOVOLOG FLEXPEN U-100 INSULIN) 100 unit/mL (3 mL) injection 06-28 00:00: 00 Yes [id number] 10U inject 10 Units under the skin in the morning and 10 Units at noon and 10 Units in the evening. inject before meals. [facility] insulin aspart U-100 (NOVOLOG FLEXPEN U-100 INSULIN) 100 unit/mL (3 mL) injection 06-28 00:00: 00 Yes [id number] 10U inject 10 Units under the skin in the morning and 10 Units at noon and 10 Units in the evening. inject before meals. [facility] insulin aspart U-100 (NOVOLOG FLEXPEN U-100 INSULIN) 100 unit/mL (3 mL) injection 06-28 00:00: 00 Yes [id number] 10U inject 10 Units under the skin in the morning and 10 Units at noon and 10 Units in the evening. inject before meals. [facility] insulin aspart U-100 (NOVOLOG FLEXPEN U-100 INSULIN) 100 unit/mL (3 mL) injection 06-28 00:00: 00 Yes [id number] 10U inject 10 Units under the skin in the morning and 10 Units at noon and 10 Units in the evening. inject before meals. [facility] insulin aspart U-100 (NOVOLOG FLEXPEN U-100 INSULIN) 100 unit/mL (3 mL) injection 06-28 00:00: 00 07-29 00:00 :00 No [id number] 10U inject 10 Units under the skin in the morning and 10 Units at noon and 10 Units in the evening. inject before meals. [facility] insulin aspart U-100 (NOVOLOG FLEXPEN U-100 INSULIN) 100 unit/mL (3 mL) injection 06-28 00:00: 00 07-29 00:00 :00 No [id number] 10U inject 10 Units under the skin in the morning and 10 Units at noon and 10 Units in the evening. inject before meals. [facility] ATORVASTATI N 40 mg tablet 2024-0 2-05 00:00: 00 Yes [id number] 40mg TAKE 1 TABLET BY MOUTH AT BEDTIME [facility] AMLODIPINE 10 mg tablet 2023-0 2-05 00:00: 00 Yes [id number] 10mg TAKE 1 TABLET BY MOUTH EVERY MORNING [facility] ATORVASTATI N 40 mg tablet 2023-0 2-05 00:00: 00 Yes [id number] 40mg TAKE 1 TABLET BY MOUTH AT BEDTIME [facility] AMLODIPINE 10 mg tablet 2023-0 2-05 00:00: 00 Yes [id number] 10mg TAKE 1 TABLET BY MOUTH EVERY MORNING [facility] ATORVASTATI N 40 mg tablet 2023-0 2-05 00:00: 00 Yes [id number] 40mg TAKE 1 TABLET BY MOUTH AT BEDTIME [facility] AMLODIPINE 10 mg tablet 2023-0 2-05 00:00: 00 Yes [id number] 10mg TAKE 1 TABLET BY MOUTH EVERY MORNING [facility] ATORVASTATI N 40 mg tablet 2023-0 2-05 00:00: 00 Yes [id number] 40mg TAKE 1 TABLET BY MOUTH AT BEDTIME [facility] AMLODIPINE 10 mg tablet 2023-0 2-05 00:00: 00 Yes [id number] 10mg TAKE 1 TABLET BY MOUTH EVERY MORNING [facility] ATORVASTATI N 40 mg tablet 0 2-05 00:00: 00 07-29 00:00 :00 No [id number] 40mg TAKE 1 TABLET BY MOUTH AT BEDTIME [facility] AMLODIPINE 10 mg tablet 2023-0 2-05 00:00: 00 07-29 00:00 :00 No [id number] 10mg TAKE 1 TABLET BY MOUTH EVERY MORNING [facility] TAMSULOSIN 0.4 mg 24 hr capsule 2023-0 - 00:00: 00 Yes [id number] TAKE ONE CAPSULE BY MOUTH EVERY MORNING [facility] TAMSULOSIN 0.4 mg 24 hr capsule 2023-0 - 00:00: 00 Yes [id number] TAKE ONE CAPSULE BY MOUTH EVERY MORNING [facility] TAMSULOSIN 0.4 mg 24 hr capsule 2023-0 06-16 00:00: 00 Yes [id number] TAKE ONE CAPSULE BY MOUTH EVERY MORNING [facility] TAMSULOSIN 0.4 mg 24 hr capsule 2023-0 06-16 00:00: 00 Yes [id number] TAKE ONE CAPSULE BY MOUTH EVERY MORNING [facility] TAMSULOSIN 0.4 mg 24 hr capsule 0 06-16 00:00: 00 Yes [id number] TAKE ONE CAPSULE BY MOUTH EVERY MORNING [facility] mg 24 hr capsule 0 06-16 00:00: 00 Yes [id number] TAKE ONE CAPSULE BY MOUTH EVERY MORNING [facility] TAMSULOSIN 0.4 mg 24 hr capsule 0 06-16 00:00: 00 Yes [id number] TAKE ONE CAPSULE BY MOUTH EVERY MORNING [facility] TAMSULOSIN 0.4 mg 24 hr capsule 0 06-16 00:00: 00 Yes [id number] TAKE ONE CAPSULE BY MOUTH EVERY MORNING [facility] TAMSULOSIN 0.4 mg 24 hr capsule 0 06-16 00:00: 00 Yes [id number] TAKE ONE CAPSULE BY MOUTH EVERY MORNING [facility] TAMSULOSIN 0.4 mg 24 hr capsule 0 06-16 00:00: 00 Yes [id number] TAKE ONE CAPSULE BY MOUTH EVERY MORNING [facility] TAMSULOSIN 0.4 mg 24 hr capsule 0 06-16 00:00: 00 Yes [id number] TAKE ONE CAPSULE BY MOUTH EVERY MORNING [facility] TAMSULOSIN 0.4 mg 24 hr capsule 0 06-16 00:00: 00 Yes [id number] TAKE ONE CAPSULE BY MOUTH EVERY MORNING [facility] TAMSULOSIN 0.4 mg 24 hr capsule 0 06-16 00:00: 00 Yes [id number] TAKE ONE CAPSULE BY MOUTH EVERY MORNING [facility] AMLODIPINE 10 mg tablet 05-24 00:00: 00 Yes [id number] 10mg TAKE ONE TABLET BY MOUTH EVERY MORNING [facility] ATORVASTATI N 40 mg tablet 05-24 00:00: 00 Yes [id number] 40mg TAKE 1 TABLET BY MOUTH AT BEDTIME [facility] fenofibrate 145 mg tablet 0 05-24 00:00: 00 Yes [id number] 145mg TAKE ONE TABLET BY MOUTH EVERY MORNING [facility] fenofibrate 145 mg tablet 0 05-24 00:00: 00 Yes [id number] 145mg TAKE ONE TABLET BY MOUTH EVERY MORNING [facility] AMLODIPINE 10 mg tablet 0 05-24 00:00: 00 Yes [id number] 10mg TAKE ONE TABLET BY MOUTH EVERY MORNING [facility] ATORVASTATI N 40 mg tablet 0 05-24 00:00: 00 Yes [id number] 40mg TAKE 1 TABLET BY MOUTH AT BEDTIME [facility] fenofibrate 145 mg tablet 0 05-24 00:00: 00 Yes [id number] 145mg TAKE ONE TABLET BY MOUTH EVERY MORNING [facility] fenofibrate 145 mg tablet 2023-0 05-24 00:00: 00 Yes [id number] 145mg TAKE ONE TABLET BY MOUTH EVERY MORNING [facility] fenofibrate 145 mg tablet 0 05-24 00:00: 00 Yes [id number] 145mg TAKE ONE TABLET BY MOUTH EVERY MORNING [facility] fenofibrate 145 mg tablet 0 05-24 00:00: 00 Yes [id number] 145mg TAKE ONE TABLET BY MOUTH EVERY MORNING [facility] fenofibrate 145 mg tablet 0 05-24 00:00: 00 Yes [id number] 145mg TAKE ONE TABLET BY MOUTH EVERY MORNING [facility] fenofibrate 145 mg tablet 2023-0 05-24 00:00: 00 Yes [id number] 145mg TAKE ONE TABLET BY MOUTH EVERY MORNING [facility] fenofibrate 145 mg tablet 2023-0 05-24 00:00: 00 Yes [id number] 145mg TAKE ONE TABLET BY MOUTH EVERY MORNING [facility] fenofibrate 145 mg tablet 2023-0 05-24 00:00: 00 Yes [id number] 145mg TAKE ONE TABLET BY MOUTH EVERY MORNING [facility] fenofibrate 145 mg tablet 2023-0 05-24 00:00: 00 Yes [id number] 145mg TAKE ONE TABLET BY MOUTH EVERY MORNING [facility] fenofibrate 145 mg tablet 05-24 00:00: 00 Yes [id number] 145mg TAKE ONE TABLET BY MOUTH EVERY MORNING [facility] fenofibrate 145 mg tablet 05-24 00:00: 00 Yes [id number] 145mg TAKE ONE TABLET BY MOUTH EVERY MORNING [facility] fenofibrate 145 mg tablet 05-24 00:00: 00 Yes [id number] 145mg TAKE ONE TABLET BY MOUTH EVERY MORNING [facility] AMLODIPINE 10 mg tablet 05-24 00:00: 00 06-21 00:00 :00 No [id number] 10mg TAKE ONE TABLET BY MOUTH EVERY MORNING [facility] ATORVASTATI N 40 mg tablet 05-24 00:00: 00 06-21 00:00 :00 No [id number] 40mg TAKE 1 TABLET BY MOUTH AT BEDTIME [facility] AMLODIPINE 10 mg tablet 05-24 00:00: 00 06-21 00:00 :00 No [id number] 10mg TAKE ONE TABLET BY MOUTH EVERY MORNING [facility] ATORVASTATI N 40 mg tablet 05-24 00:00: 00 06-21 00:00 :00 No [id number] 40mg TAKE 1 TABLET BY MOUTH AT BEDTIME [facility] fenofibrate 145 mg tablet 2022-05 00:00: 00 Yes [id number] 145mg TAKE ONE TABLET BY MOUTH EVERY MORNING [facility] fenofibrate 145 mg tablet 2022-05 00:00: 00 Yes [id number] 145mg TAKE ONE TABLET BY MOUTH EVERY MORNING [facility] fenofibrate 145 mg tablet 2022-05 00:00: 00 Yes [id number] 145mg TAKE ONE TABLET BY MOUTH EVERY MORNING [facility] fenofibrate 145 mg tablet 2022-05 00:00: 00 Yes [id number] 145mg TAKE ONE TABLET BY MOUTH EVERY MORNING [facility] fenofibrate 145 mg tablet 2023-1 2-31 00:00: 00 05-24 00:00 :00 No [id number] 145mg TAKE ONE TABLET BY MOUTH EVERY MORNING [facility] AMLODIPINE 10 mg tablet 2022-05 00:00: 00 Yes [id number] 10mg TAKE ONE TABLET BY MOUTH EVERY MORNING [facility] ATORVASTATI N 40 mg tablet 2022-05 00:00: 00 Yes [id number] 40mg TAKE 1 TABLET BY MOUTH AT BEDTIME [facility] AMLODIPINE 10 mg tablet 2022-05 00:00: 00 Yes [id number] 10mg TAKE ONE TABLET BY MOUTH EVERY MORNING [facility] ATORVASTATI N 40 mg tablet 2022-05 00:00: 00 Yes [id number] 40mg TAKE 1 TABLET BY MOUTH AT BEDTIME [facility] AMLODIPINE 10 mg tablet 2022-05 00:00: 00 Yes [id number] 10mg TAKE ONE TABLET BY MOUTH EVERY MORNING [facility] ATORVASTATI N 40 mg tablet 2022-05 00:00: 00 Yes [id number] 40mg TAKE 1 TABLET BY MOUTH AT BEDTIME [facility] AMLODIPINE 10 mg tablet 2022-05 00:00: 00 Yes [id number] 10mg TAKE ONE TABLET BY MOUTH EVERY MORNING [facility] ATORVASTATI N 40 mg tablet 2022-05 00:00: 00 Yes [id number] 40mg TAKE 1 TABLET BY MOUTH AT BEDTIME [facility] AMLODIPINE 10 mg tablet 2022-05 00:00: 00 05-24 00:00 :00 No [id number] 10mg TAKE ONE TABLET BY MOUTH EVERY MORNING [facility] ATORVASTATI N 40 mg tablet 2022-05 00:00: 00 05-24 00:00 :00 No [id number] 40mg TAKE 1 TABLET BY MOUTH AT BEDTIME [facility] semaglutide (OZEMPIC) 2 mg/dose (8 mg/3 mL) PnIj 2022-05-17 00:00: 00 Yes [id number] 2mg inject 2 mg under the skin weekly. [facility] Glarg[facility] (BASAGLAR KWIKPEN U-100 INSULIN) 100 unit/mL (3 mL) injection 2022-05 00:00: 00 Yes [id number] INJECT UNDER THE SKIN 23 UNITS DAILY IN MORNING [facility] semaglutide (OZEMPIC) 2 mg/dose (8 mg/3 mL) [facility] 2022-05 00:00: 00 Yes [id number] 2mg inject 2 mg under the skin weekly. [facility] Glargine (BASAGLAR KWIKPEN U-100 INSULIN) 100 unit/mL (3 mL) injection 2022-05 00:00: 00 Yes [id number] INJECT UNDER THE SKIN 23 UNITS DAILY IN MORNING [facility] semaglutide (OZEMPIC) 2 mg/dose (8 mg/3 mL) [facility] 2022-05 00:00: 00 Yes [id number] 2mg inject 2 mg under the skin weekly. [facility] Insulin Glargine (BASAGLAR KWIKPEN U-100 INSULIN) 100 unit/mL (3 mL) injection 2022-05 00:00: 00 Yes [id number] INJECT UNDER THE SKIN 23 UNITS DAILY IN MORNING [facility] semaglutide (OZEMPIC) 2 mg/dose (8 mg/3 mL) [facility] 2022-05 00:00: 00 Yes [id number] 2mg inject 2 mg under the skin weekly. [facility] Insulin Glargine (BASAGLAR KWIKPEN U-100 INSULIN) 100 unit/mL (3 mL) injection 2022-05 00:00: 00 Yes [id number] INJECT UNDER THE SKIN 23 UNITS DAILY IN MORNING [facility] semaglutide (OZEMPIC) 2 mg/dose (8 mg/3 mL) [facility] 2022-05 00:00: 00 Yes [id number] 2mg inject 2 mg under the skin weekly. [facility] Glargine (BASAGLAR KWIKPEN U-100 INSULIN) 100 unit/mL (3 mL) injection 2022-05 00:00: 00 Yes [id number] INJECT UNDER THE SKIN 23 UNITS DAILY IN MORNING [facility] semaglutide (OZEMPIC) 2 mg/dose (8 mg/3 mL) [facility] 2022-05 00:00: 00 Yes [id number] 2mg inject 2 mg under the skin weekly. [facility] Insulin Glargine (BASAGLAR KWIKPEN U-100 INSULIN) 100 unit/mL (3 mL) injection 2022-05 00:00: 00 Yes [id number] INJECT UNDER THE SKIN 23 UNITS DAILY IN MORNING [facility] semaglutide (OZEMPIC) 2 mg/dose (8 mg/3 mL) [facility] 2022-05 00:00: 00 Yes [id number] 2mg inject 2 mg under the skin weekly. [facility] Insulin Glargine (BASAGLAR KWIKPEN U-100 INSULIN) 100 unit/mL (3 mL) injection 2022-05 00:00: 00 Yes [id number] INJECT UNDER THE SKIN 23 UNITS DAILY IN MORNING [facility] semaglutide (OZEMPIC) 2 mg/dose (8 mg/3 mL) [facility] [facility] 2022-05 00:00: 00 Yes [id number] 2mg inject 2 mg under the skin weekly. [facility] Insulin Glargine (BASAGLAR KWIKPEN U-100 INSULIN) 100 unit/mL (3 mL) injection 2022-05 00:00: 00 Yes [id number] INJECT UNDER THE SKIN 23 UNITS DAILY IN MORNING [facility] semaglutide (OZEMPIC) 2 mg/dose (8 mg/3 mL) [facility] 2022-05 00:00: 00 Yes [id number] 2mg inject 2 mg under the skin weekly. [facility] Insulin Glargine (BASAGLAR KWIKPEN U-100 INSULIN) 100 unit/mL (3 mL) injection 2022-05 00:00: 00 Yes [id number] INJECT UNDER THE SKIN 23 UNITS DAILY IN MORNING [facility] semaglutide (OZEMPIC) 2 mg/dose (8 mg/3 mL) [facility] 2022-05 00:00: 00 Yes [id number] 2mg inject 2 mg under the skin weekly. [facility] (BASAGLAR KWIKPEN U-100 INSULIN) 100 unit/mL (3 mL) injection 2022-05 00:00: 00 Yes [id number] INJECT UNDER THE SKIN 23 UNITS DAILY IN MORNING [facility] semaglutide (OZEMPIC) 2 mg/dose (8 mg/3 mL) [facility] 2022-05 00:00: 00 Yes [id number] 2mg inject 2 mg under the skin weekly. [facility] Insulin Glargine (BASAGLAR KWIKPEN U-100 INSULIN) 100 unit/mL (3 mL) injection 2022-05 00:00: 00 Yes [id number] INJECT UNDER THE SKIN 23 UNITS DAILY IN MORNING [facility] semaglutide (OZEMPIC) 2 mg/dose (8 mg/3 mL) [facility] 2022-05 00:00: 00 Yes [id number] 2mg inject 2 mg under the skin weekly. [facility] Insulin Glargine (BASAGLAR KWIKPEN U-100 INSULIN) 100 unit/mL (3 mL) injection 2022-05 00:00: 00 Yes [id number] INJECT UNDER THE SKIN 23 UNITS DAILY IN MORNING [facility] semaglutide (OZEMPIC) 2 mg/dose (8 mg/3 mL) [facility] 2022-05 00:00: 00 Yes [id number] 2mg inject 2 mg under the skin weekly. [facility] Insulin Glargine (BASAGLAR KWIKPEN U-100 INSULIN) 100 unit/mL (3 mL) injection 2022-05 00:00: 00 Yes [id number] INJECT UNDER THE SKIN 23 UNITS DAILY IN MORNING [facility] semaglutide (OZEMPIC) 2 mg/dose (8 mg/3 mL) [facility] 2022-05 00:00: 00 Yes [id number] 2mg inject 2 mg under the skin weekly. [facility] Insulin Glargine (BASAGLAR KWIKPEN U-100 INSULIN) 100 unit/mL (3 mL) injection 2022-05 00:00: 00 Yes [id number] INJECT UNDER THE SKIN 23 UNITS DAILY IN MORNING [facility] semaglutide (OZEMPIC) 2 mg/dose (8 mg/3 mL) [facility] 2022-05 00:00: 00 Yes [id number] 2mg inject 2 mg under the skin weekly. [facility] Insulin Glargine (BASAGLAR KWIKPEN U-100 INSULIN) 100 unit/mL (3 mL) injection 2022-05 00:00: 00 Yes [id number] INJECT UNDER THE SKIN 23 UNITS DAILY IN MORNING [facility] semaglutide (OZEMPIC) 2 mg/dose (8 mg/3 mL) [facility] 2022-05 00:00: 00 Yes [id number] 2mg inject 2 mg under the skin weekly. [facility] Insulin Glargine (BASAGLAR KWIKPEN U-100 INSULIN) 100 unit/mL (3 mL) injection 2022-05 00:00: 00 Yes [id number] INJECT UNDER THE SKIN 23 UNITS DAILY IN MORNING [facility] semaglutide (OZEMPIC) 2 mg/dose (8 mg/3 mL) [facility] 2022-05 00:00: 00 Yes [id number] 2mg inject 2 mg under the skin weekly. [facility] Insulin Glargine (BASAGLAR KWIKPEN U-100 INSULIN) 100 unit/mL (3 mL) injection 2022-05 00:00: 00 Yes [id number] INJECT UNDER THE SKIN 23 UNITS DAILY IN MORNING [facility] semaglutide (OZEMPIC) 2 mg/dose (8 mg/3 mL) [facility] 2022-05 00:00: 00 Yes [id number] 2mg inject 2 mg under the skin weekly. [facility] Insulin Glargine (BASAGLAR KWIKPEN U-100 INSULIN) 100 unit/mL (3 mL) injection 2022-05 00:00: 00 Yes [id number] INJECT UNDER THE SKIN 23 UNITS DAILY IN MORNING [facility] semaglutide (OZEMPIC) 2 mg/dose (8 mg/3 mL) [facility] 2022-05 00:00: 00 07-29 00:00 :00 No [id number] 2mg inject 2 mg under the skin weekly. [facility] Insulin Glargine (BASAGLAR KWIKPEN U-100 INSULIN) 100 unit/mL (3 mL) injection 2022-05 00:00: 00 07-29 00:00 :00 No [id number] INJECT UNDER THE SKIN 23 UNITS DAILY IN MORNING [facility] semaglutide (OZEMPIC) 2 mg/dose (8 mg/3 mL) [facility] 2022-05 00:00: 00 07-29 00:00 :00 No [id number] 2mg inject 2 mg under the skin weekly. [facility] Insulin Glargine (BASAGLAR KWIKPEN U-100 INSULIN) 100 unit/mL (3 mL) injection 2022-05 00:00: 00 07-29 00:00 :00 No [id number] INJECT UNDER THE SKIN 23 UNITS DAILY IN MORNING [facility] Insulin Glargine (BASAGLAR KWIKPEN U-100 INSULIN) 100 unit/mL (3 mL) injection 2022-05 00:00: 00 04-02 00:00 :00 No [id number] INJECT UNDER THE SKIN 23 UNITS DAILY IN MORNING [facility] Blood-Gluco se Sensor (FREESTYLE HEVER 3 SENSOR) Jeni 2022-05 00:00: 00 04-02 00:00 :00 No [id number] Use as directed [facility] Insulin Glargine (BASAGLAR KWIKPEN U-100 INSULIN) 100 unit/mL (3 mL) injection 2022-05 00:00: 00 04-02 00:00 :00 No [id number] INJECT UNDER THE SKIN 23 UNITS DAILY IN MORNING [facility] Blood-Gluco se Sensor (FREESTYLE HEVER 3 SENSOR) [facility] 2022-05 00:00: 00 04-02 00:00 :00 No [id number] Use as directed [facility] NEBIVOLOL 10 mg tablet 2022-05 00:00: 00 Yes [id number] 10mg TAKE ONE TABLET BY MOUTH EVERY MORNING [facility] AMLODIPINE 10 mg tablet 2022-05 00:00: 00 Yes [id number] 10mg TAKE ONE TABLET BY MOUTH EVERY MORNING [facility] ATORVASTATI N 40 mg tablet 2022-05 00:00: 00 Yes [id number] 40mg TAKE 1 TABLET BY MOUTH AT BEDTIME [facility] NEBIVOLOL 10 mg tablet 2022-05 00:00: 00 Yes [id number] 10mg TAKE ONE TABLET BY MOUTH EVERY MORNING [facility] AMLODIPINE 10 mg tablet 2022-05 00:00: 00 Yes [id number] 10mg TAKE ONE TABLET BY MOUTH EVERY MORNING [facility] ATORVASTATI N 40 mg tablet 2022-05 00:00: 00 Yes [id number] 40mg TAKE 1 TABLET BY MOUTH AT BEDTIME [facility] NEBIVOLOL 10 mg tablet 2022-05 00:00: 00 Yes [id number] 10mg TAKE ONE TABLET BY MOUTH EVERY MORNING [facility] AMLODIPINE 10 mg tablet 2022-05 00:00: 00 Yes [id number] 10mg TAKE ONE TABLET BY MOUTH EVERY MORNING [facility] ATORVASTATI N 40 mg tablet 2022-05 00:00: 00 Yes [id number] 40mg TAKE 1 TABLET BY MOUTH AT BEDTIME [facility] NEBIVOLOL 10 mg tablet 2022-05 00:00: 00 Yes [id number] 10mg TAKE ONE TABLET BY MOUTH EVERY MORNING [facility] NEBIVOLOL 10 mg tablet 2022-05 00:00: 00 Yes [id number] 10mg TAKE ONE TABLET BY MOUTH EVERY MORNING [facility] NEBIVOLOL 10 mg tablet 2022-05 00:00: 00 Yes [id number] 10mg TAKE ONE TABLET BY MOUTH EVERY MORNING [facility] NEBIVOLOL 10 mg tablet 2022-05 00:00: 00 Yes [id number] 10mg TAKE ONE TABLET BY MOUTH EVERY MORNING [facility] NEBIVOLOL 10 mg tablet 2022-05 00:00: 00 Yes [id number] 10mg TAKE ONE TABLET BY MOUTH EVERY MORNING [facility] mg tablet 2022-05 00:00: 00 Yes [id number] 10mg TAKE ONE TABLET BY MOUTH EVERY MORNING [facility] NE[facility] mg tablet 2022-05 00:00: 00 Yes [id number] 10mg TAKE ONE TABLET BY MOUTH EVERY MORNING [facility] NEBIV[facility] 10 mg tablet 2022-05 00:00: 00 Yes [id number] 10mg TAKE ONE TABLET BY MOUTH EVERY MORNING [facility] NEBIV[facility] 10 mg tablet 2022-05 00:00: 00 Yes [id number] 10mg TAKE ONE TABLET BY MOUTH EVERY MORNING [facility] NEBIV[facility]OL 10 mg tablet 2022-05 00:00: 00 Yes [id number] 10mg TAKE ONE TABLET BY MOUTH EVERY MORNING [facility] NE[facility] mg tablet 2022-05 00:00: 00 Yes [id number] 10mg TAKE ONE TABLET BY MOUTH EVERY MORNING [facility] NEBIV[facility]OL 10 mg tablet 2022-05 00:00: 00 Yes [id number] 10mg TAKE ONE TABLET BY MOUTH EVERY MORNING [facility] NEBIVOLOL 10 mg tablet 2022-05 00:00: 00 Yes [id number] 10mg TAKE ONE TABLET BY MOUTH EVERY MORNING [facility] NEBIVOLOL 10 mg tablet 2022-05 00:00: 00 Yes [id number] 10mg TAKE ONE TABLET BY MOUTH EVERY MORNING [facility] NE[facility] mg tablet 2022-05 00:00: 00 Yes [id number] 10mg TAKE ONE TABLET BY MOUTH EVERY MORNING [facility] NEBIV[facility]OL 10 mg tablet 2022-05 00:00: 00 Yes [id number] 10mg TAKE ONE TABLET BY MOUTH EVERY MORNING [facility] NEBIV[facility]OL 10 mg tablet 2022-05 00:00: 00 Yes [id number] 10mg TAKE ONE TABLET BY MOUTH EVERY MORNING [facility] NEBIV[facility] mg tablet 2022-05 00:00: 00 Yes [id number] 10mg TAKE ONE TABLET BY MOUTH EVERY MORNING [facility] NEBIVOLOL 10 mg tablet 2022-05 00:00: 00 Yes [id number] 10mg TAKE ONE TABLET BY MOUTH EVERY MORNING [facility] AMLODIPINE 10 mg tablet 2022-05 00:00: 00 04-26 00:00 :00 No [id number] 10mg TAKE ONE TABLET BY MOUTH EVERY MORNING [facility] ATORVASTATI N 40 mg tablet 2022-05 00:00: 00 04-26 00:00 :00 No [id number] 40mg TAKE 1 TABLET BY MOUTH AT BEDTIME [facility] METFORMIN ER 500 mg 24 hr tablet 2022-05 00:00: 00 Yes [id number] 1000mg TAKE TWO TABLETS BY MOUTH TWICE A DAY [facility] METFORMIN ER 500 mg 24 hr tablet 2022-05 00:00: 00 Yes [id number] 1000mg TAKE TWO TABLETS BY MOUTH TWICE A DAY [facility] METFORMIN ER 500 mg 24 hr tablet 2022-05 00:00: 00 Yes [id number] 1000mg TAKE TWO TABLETS BY MOUTH TWICE A DAY [facility] METFORMIN ER 500 mg 24 hr tablet 2022-05 00:00: 00 Yes [id number] 1000mg TAKE TWO TABLETS BY MOUTH TWICE A DAY [facility] METFORMIN ER 500 mg 24 hr tablet 2022-05 00:00: 00 Yes [id number] 1000mg TAKE TWO TABLETS BY MOUTH TWICE A DAY [facility] METFORMIN ER 500 mg 24 hr tablet 2022-05 00:00: 00 Yes [id number] 1000mg TAKE TWO TABLETS BY MOUTH TWICE A DAY [facility] METFORMIN ER 500 mg 24 hr tablet 2022-05 00:00: 00 Yes [id number] 1000mg TAKE TWO TABLETS BY MOUTH TWICE A DAY [facility] METFORMIN ER 500 mg 24 hr tablet 2022-05 00:00: 00 Yes [id number] 1000mg TAKE TWO TABLETS BY MOUTH TWICE A DAY [facility] METFORMIN ER 500 mg 24 hr tablet 2022-05 00:00: 00 Yes [id number] 1000mg TAKE TWO TABLETS BY MOUTH TWICE A DAY [facility] METFORMIN ER 500 mg 24 hr tablet 2022-05 00:00: 00 Yes [id number] 1000mg TAKE TWO TABLETS BY MOUTH TWICE A DAY [facility] METFORMIN ER 500 mg 24 hr tablet 2022-05 00:00: 00 Yes [id number] 1000mg TAKE TWO TABLETS BY MOUTH TWICE A DAY [facility] METFORMIN ER 500 mg 24 hr tablet 2022-05 00:00: 00 Yes [id number] 1000mg TAKE TWO TABLETS BY MOUTH TWICE A DAY [facility] METFORMIN ER 500 mg 24 hr tablet 2022-05 00:00: 00 Yes [id number] 1000mg TAKE TWO TABLETS BY MOUTH TWICE A DAY [facility] METFORMIN ER 500 mg 24 hr tablet 2022-05 00:00: 00 Yes [id number] 1000mg TAKE TWO TABLETS BY MOUTH TWICE A DAY [facility] METFORMIN ER 500 mg 24 hr tablet 2022-05 00:00: 00 Yes [id number] 1000mg TAKE TWO TABLETS BY MOUTH TWICE A DAY [facility] METFORMIN ER 500 mg 24 hr tablet 2022-05 00:00: 00 Yes [id number] 1000mg TAKE TWO TABLETS BY MOUTH TWICE A DAY [facility] METFORMIN ER 500 mg 24 hr tablet 2022-05 00:00: 00 Yes [id number] 1000mg TAKE TWO TABLETS BY MOUTH TWICE A DAY [facility] METFORMIN ER 500 mg 24 hr tablet 2022-05 00:00: 00 Yes [id number] 1000mg TAKE TWO TABLETS BY MOUTH TWICE A DAY [facility] METFORMIN ER 500 mg 24 hr tablet 2022-05 00:00: 00 Yes [id number] 1000mg TAKE TWO TABLETS BY MOUTH TWICE A DAY [facility] METFORMIN ER 500 mg 24 hr tablet 2022-05 00:00: 00 Yes [id number] 1000mg TAKE TWO TABLETS BY MOUTH TWICE A DAY [facility] METFORMIN ER 500 mg 24 hr tablet 2022-05 00:00: 00 Yes [id number] 1000mg TAKE TWO TABLETS BY MOUTH TWICE A DAY [facility] METFORMIN ER 500 mg 24 hr tablet 2022-05 00:00: 00 07-29 00:00 :00 No [id number] 1000mg TAKE TWO TABLETS BY MOUTH TWICE A DAY [facility] METFORMIN ER 500 mg 24 hr tablet 2022-05 00:00: 00 07-29 00:00 :00 No [id number] 1000mg TAKE TWO TABLETS BY MOUTH TWICE A DAY [facility] ALLOPURINOL 100 mg tablet 2022-05 00:00: 00 Yes [id number] TAKE TWO TABLETS BY MOUTH EVERY MORNING [facility] ALLOPURINOL 100 mg tablet 2022-05 00:00: 00 Yes [id number] TAKE TWO TABLETS BY MOUTH EVERY MORNING [facility] ALLOPURINOL 100 mg tablet 2022-05 00:00: 00 Yes [id number] TAKE TWO TABLETS BY MOUTH EVERY MORNING [facility] ALLOPURINOL 100 mg tablet 2022-05 00:00: 00 Yes [id number] TAKE TWO TABLETS BY MOUTH EVERY MORNING [facility] ALLOPURINOL 100 mg tablet 2022-05 00:00: 00 Yes [id number] TAKE TWO TABLETS BY MOUTH EVERY MORNING [facility] ALLOPURINOL 100 mg tablet 2022-05 00:00: 00 Yes [id number] TAKE TWO TABLETS BY MOUTH EVERY MORNING [facility] ALLOPURINOL 100 mg tablet 2022-05 00:00: 00 Yes [id number] TAKE TWO TABLETS BY MOUTH EVERY MORNING [facility] ALLOPURINOL 100 mg tablet 2022-05 00:00: 00 Yes [id number] TAKE TWO TABLETS BY MOUTH EVERY MORNING [facility] ALLOPURINOL 100 mg tablet 2022-05 0 00:00: 00 Yes [id number] TAKE TWO TABLETS BY MOUTH EVERY MORNING [facility] ALLOPURINOL 100 mg tablet 2022-05 0 00:00: 00 Yes [id number] TAKE TWO TABLETS BY MOUTH EVERY MORNING [facility] ALLOPURINOL 100 mg tablet 2022-05 030 00:00: 00 Yes [id number] TAKE TWO TABLETS BY MOUTH EVERY MORNING [facility] ALLOPURINOL 100 mg tablet 2022-05 030 00:00: 00 Yes [id number] TAKE TWO TABLETS BY MOUTH EVERY MORNING [facility] ALLOPURINOL 100 mg tablet 2022-05 0 00:00: 00 Yes [id number] TAKE TWO TABLETS BY MOUTH EVERY MORNING [facility] ALLOPURINOL 100 mg tablet 2022-05 0 00:00: 00 Yes [id number] TAKE TWO TABLETS BY MOUTH EVERY MORNING [facility] ALLOPURINOL 100 mg tablet 2022-05 0 00:00: 00 Yes [id number] TAKE TWO TABLETS BY MOUTH EVERY MORNING [facility] ALLOPURINOL 100 mg tablet 2022-05 0 00:00: 00 Yes [id number] TAKE TWO TABLETS BY MOUTH EVERY MORNING [facility] ALLOPURINOL 100 mg tablet 2022-05 0 00:00: 00 Yes [id number] TAKE TWO TABLETS BY MOUTH EVERY MORNING [facility] ALLOPURINOL 100 mg tablet 2022-05 0 00:00: 00 Yes [id number] TAKE TWO TABLETS BY MOUTH EVERY MORNING [facility] ALLOPURINOL 100 mg tablet 2022-05 00:00: 00 Yes [id number] TAKE TWO TABLETS BY MOUTH EVERY MORNING [facility] ALLOPURINOL 100 mg tablet 2022-05 0 00:00: 00 Yes [id number] TAKE TWO TABLETS BY MOUTH EVERY MORNING [facility] ALLOPURINOL 100 mg tablet 2022-05 00:00: 00 Yes [id number] TAKE TWO TABLETS BY MOUTH EVERY MORNING [facility] ALLOPURINOL 100 mg tablet 2022-05 0 00:00: 00 Yes [id number] TAKE TWO TABLETS BY MOUTH EVERY MORNING [facility] ALLOPURINOL 100 mg tablet 2022-05 0 00:00: 00 Yes [id number] TAKE TWO TABLETS BY MOUTH EVERY MORNING [facility] ALLOPURINOL 100 mg tablet 2022-05 0 00:00: 00 Yes [id number] TAKE TWO TABLETS BY MOUTH EVERY MORNING [facility] ALLOPURINOL 100 mg tablet 2022-05 030 00:00: 00 Yes [id number] TAKE TWO TABLETS BY MOUTH EVERY MORNING [facility] ALLOPURINOL 100 mg tablet 2022-05 030 00:00: 00 Yes [id number] TAKE TWO TABLETS BY MOUTH EVERY MORNING [facility] Cephalexin 500 MG Cephalexin 500 MG 2022-05 0-30 00:00: 00 No 1{capsu le} TID Cephalexin 500 MG Cephalexin 500 MG Cephalexin 500 MG 2022-05 0-30 00:00: 00 No 1{capsu le} TID Cephalexin 500 MG Cephalexin 500 MG Cephalexin 500 MG 2022-05 0- 00:00: 00 No 1{capsu le} TID Cephalexin [...] Cephalexin 500 MG Cephalexin 500 MG 2022-05 0-30 00:00: 00 No 1{capsu le} TID Cephalexin 500 MG Cephalexin 500 MG Cephalexin 500 MG 2022-05 0-30 00:00: 00 No 1{capsu le} TID Cephalexin 500 MG Cephalexin 500 MG Cephalexin 500 MG 2022- 0-30 00:00: 00 No 1{capsu le} TID Cephalexin 500 MG Cephalexin 500 MG Cephalexin 500 MG 2022-05 0-30 00:00: 00 No 1{capsu le} TID Cephalexin 500 MG Cephalexin 500 MG Cephalexin 500 MG 2022- 0-30 00:00: 00 No 1{capsu le} TID Cephalexin 500 MG semaglutide (OZEMPIC) 1 mg/dose (4 mg/3 mL) [facility] 3-1 0-24 00:00: 00 Yes [id number] DIAL AND INJECT UNDER THE SKIN 1 MG WEEKLY [facility] semaglutide (OZEMPIC) 1 mg/dose (4 mg/3 mL) [facility] 2022- 0-24 00:00: 00 Yes [id number] DIAL AND INJECT UNDER THE SKIN 1 MG WEEKLY [facility] semaglutide (OZEMPIC) 1 mg/dose (4 mg/3 mL) [facility] 2022- 0-24 00:00: 00 Yes [id number] DIAL AND INJECT UNDER THE SKIN 1 MG WEEKLY [facility] semaglutide (OZEMPIC) 1 mg/dose (4 mg/3 mL) [facility] 2022- 0- 00:00: 00 Yes [id number] DIAL AND INJECT UNDER THE SKIN 1 MG WEEKLY [facility] semaglutide (OZEMPIC) 1 mg/dose (4 mg/3 mL) [facility] 2022- 0- 00:00: 00 Yes [id number] DIAL AND INJECT UNDER THE SKIN 1 MG WEEKLY [facility] semaglutide (OZEMPIC) 1 mg/dose (4 mg/3 mL) [facility] 2022- 0- 00:00: 00 Yes [id number] DIAL AND INJECT UNDER THE SKIN 1 MG WEEKLY [facility] semaglutide (OZEMPIC) 1 mg/dose (4 mg/3 mL) [facility] 2022- 0-24 00:00: 00 Yes [id number] DIAL AND INJECT UNDER THE SKIN 1 MG WEEKLY [facility] semaglutide (OZEMPIC) 1 mg/dose (4 mg/3 mL) [facility] 2022- 0-24 00:00: 00 Yes [id number] DIAL AND INJECT UNDER THE SKIN 1 MG WEEKLY [facility] semaglutide (OZEMPIC) 1 mg/dose (4 mg/3 mL) [facility] 2022- 0-24 00:00: 00 04-02 00:00 :00 No [id number] DIAL AND INJECT UNDER THE SKIN 1 MG WEEKLY [facility] semaglutide (OZEMPIC) 1 mg/dose (4 mg/3 mL) [facility] 2022 0-24 00:00: 00 04-02 00:00 :00 No [id number] DIAL AND INJECT UNDER THE SKIN 1 MG WEEKLY [facility] AMLODIPINE 10 mg tablet 2022-05 0-16 00:00: 00 Yes [id number] 10mg TAKE ONE TABLET BY MOUTH EVERY MORNING [facility] ATORVASTATI N 40 mg tablet 2022-05 0-16 00:00: 00 Yes [id number] 40mg TAKE 1 TABLET BY MOUTH AT BEDTIME [facility] AMLODIPINE 10 mg tablet 2022-05 016 00:00: 00 Yes [id number] 10mg TAKE ONE TABLET BY MOUTH EVERY MORNING [facility] ATORVASTATI N 40 mg tablet 2022-05 0-16 00:00: 00 Yes [id number] 40mg TAKE 1 TABLET BY MOUTH AT BEDTIME [facility] AMLODIPINE 10 mg tablet 2022-05 016 00:00: 00 Yes [id number] 10mg TAKE ONE TABLET BY MOUTH EVERY MORNING [facility] ATORVASTATI N 40 mg tablet 2022-05 016 00:00: 00 Yes [id number] 40mg TAKE 1 TABLET BY MOUTH AT BEDTIME [facility] AMLODIPINE 10 mg tablet 2022-05 0-16 00:00: 00 Yes [id number] 10mg TAKE ONE TABLET BY MOUTH EVERY MORNING [facility] ATORVASTATI N 40 mg tablet 2022-05 016 00:00: 00 Yes [id number] 40mg TAKE 1 TABLET BY MOUTH AT BEDTIME [facility] AMLODIPINE 10 mg tablet 2022-05 016 00:00: 00 Yes [id number] 10mg TAKE ONE TABLET BY MOUTH EVERY MORNING [facility] ATORVASTATI N 40 mg tablet 2022-05 0-16 00:00: 00 Yes [id number] 40mg TAKE 1 TABLET BY MOUTH AT BEDTIME [facility] AMLODIPINE 10 mg tablet 2022-05 0-16 00:00: 00 Yes [id number] 10mg TAKE ONE TABLET BY MOUTH EVERY MORNING [facility] ATORVASTATI N 40 mg tablet 2022-05 0-16 00:00: 00 Yes [id number] 40mg TAKE 1 TABLET BY MOUTH AT BEDTIME [facility] AMLODIPINE 10 mg tablet 2022-05 0-16 00:00: 00 Yes [id number] 10mg TAKE ONE TABLET BY MOUTH EVERY MORNING [facility] ATORVASTATI N 40 mg tablet 2022-05 0-16 00:00: 00 Yes [id number] 40mg TAKE 1 TABLET BY MOUTH AT BEDTIME [facility] AMLODIPINE 10 mg tablet 2022-05 0-16 00:00: 00 Yes [id number] 10mg TAKE ONE TABLET BY MOUTH EVERY MORNING [facility] ATORVASTATI N 40 mg tablet 2022-05 0-16 00:00: 00 Yes [id number] 40mg TAKE 1 TABLET BY MOUTH AT BEDTIME [facility] AMLODIPINE 10 mg tablet 2022-05 0-16 00:00: 00 Yes [id number] 10mg TAKE ONE TABLET BY MOUTH EVERY MORNING [facility] ATORVASTATI N 40 mg tablet 2022-05 0-16 00:00: 00 Yes [id number] 40mg TAKE 1 TABLET BY MOUTH AT BEDTIME [facility] AMLODIPINE 10 mg tablet 2022-05 0-16 00:00: 00 Yes [id number] 10mg TAKE ONE TABLET BY MOUTH EVERY MORNING [facility] ATORVASTATI N 40 mg tablet 2022-05 016 00:00: 00 Yes [id number] 40mg TAKE 1 TABLET BY MOUTH AT BEDTIME [facility] AMLODIPINE 10 mg tablet 2022-05 0-16 00:00: 00 Yes [id number] 10mg TAKE ONE TABLET BY MOUTH EVERY MORNING [facility] ATORVASTATI N 40 mg tablet 2022-05 0-16 00:00: 00 Yes [id number] 40mg TAKE 1 TABLET BY MOUTH AT BEDTIME [facility] AMLODIPINE 10 mg tablet 2022-05 0-16 00:00: 00 Yes [id number] 10mg TAKE ONE TABLET BY MOUTH EVERY MORNING [facility] ATORVASTATI N 40 mg tablet 2022-05 0-16 00:00: 00 Yes [id number] 40mg TAKE 1 TABLET BY MOUTH AT BEDTIME [facility] AMLODIPINE 10 mg tablet 2022-05 0-16 00:00: 00 03-29 00:00 :00 No [id number] 10mg TAKE ONE TABLET BY MOUTH EVERY MORNING [facility] ATORVASTATI N 40 mg tablet 2022-05 00:00: 00 03-29 00:00 :00 No [id number] 40mg TAKE 1 TABLET BY MOUTH AT BEDTIME [facility] ergocalcife rol, vitamin d2, 1,250 mcg (50,000 unit) capsule 02-04 00:00: 00 Yes [id number] TAKE 1 CAPSULE BY MOUTH ONCE WEEKLY [facility] ergocalcife rol, vitamin d2, 1,250 mcg (50,000 unit) capsule 02-04 00:00: 00 Yes [id number] TAKE 1 CAPSULE BY MOUTH ONCE WEEKLY [facility] ergocalcife rol, vitamin d2, 1,250 mcg (50,000 unit) capsule 02-04 00:00: 00 Yes [id number] TAKE 1 CAPSULE BY MOUTH ONCE WEEKLY [facility] ergocalcife rol, vitamin d2, 1,250 mcg (50,000 unit) capsule 02-04 00:00: 00 Yes [id number] TAKE 1 CAPSULE BY MOUTH ONCE WEEKLY [facility] ergocalcife rol, vitamin d2, 1,250 mcg (50,000 unit) capsule 02-04 00:00: 00 Yes [id number] TAKE 1 CAPSULE BY MOUTH ONCE WEEKLY [facility] ergocalcife rol, vitamin d2, 1,250 mcg (50,000 unit) capsule 02-04 00:00: 00 Yes [id number] TAKE 1 CAPSULE BY MOUTH ONCE WEEKLY [facility] ergocalcife rol, vitamin d2, 1,250 mcg (50,000 unit) capsule 02-04 00:00: 00 Yes [id number] TAKE 1 CAPSULE BY MOUTH ONCE WEEKLY [facility] ergocalcife rol, vitamin d2, 1,250 mcg (50,000 unit) capsule 02-04 00:00: 00 Yes [id number] TAKE 1 CAPSULE BY MOUTH ONCE WEEKLY [facility] ergocalcife rol, vitamin d2, 1,250 mcg (50,000 unit) capsule 02-04 00:00: 00 Yes [id number] TAKE 1 CAPSULE BY MOUTH ONCE WEEKLY [facility] ergocalcife rol, vitamin d2, 1,250 mcg (50,000 unit) capsule 0 02-04 00:00: 00 Yes [id number] TAKE 1 CAPSULE BY MOUTH ONCE WEEKLY [facility] ergocalcife rol, vitamin d2, 1,250 mcg (50,000 unit) capsule 02-04 00:00: 00 Yes [id number] TAKE 1 CAPSULE BY MOUTH ONCE WEEKLY [facility] ergocalcife rol, vitamin d2, 1,250 mcg (50,000 unit) capsule 02-04 00:00: 00 Yes [id number] TAKE 1 CAPSULE BY MOUTH ONCE WEEKLY [facility] ergocalcife rol, vitamin d2, 1,250 mcg (50,000 unit) capsule 0 02-04 00:00: 00 Yes [id number] TAKE 1 CAPSULE BY MOUTH ONCE WEEKLY [facility] ergocalcife rol, vitamin d2, 1,250 mcg (50,000 unit) capsule 02-04 00:00: 00 Yes [id number] TAKE 1 CAPSULE BY MOUTH ONCE WEEKLY [facility] ergocalcife rol, vitamin d2, 1,250 mcg (50,000 unit) capsule 02-04 00:00: 00 Yes [id number] TAKE 1 CAPSULE BY MOUTH ONCE WEEKLY [facility] ergocalcife rol, vitamin d2, 1,250 mcg (50,000 unit) capsule 02-04 00:00: 00 Yes [id number] TAKE 1 CAPSULE BY MOUTH ONCE WEEKLY [facility] ergocalcife rol, vitamin d2, 1,250 mcg (50,000 unit) capsule 0 02-04 00:00: 00 Yes [id number] TAKE 1 CAPSULE BY MOUTH ONCE WEEKLY [facility] ergocalcife rol, vitamin d2, 1,250 mcg (50,000 unit) capsule 0 02-04 00:00: 00 Yes [id number] TAKE 1 CAPSULE BY MOUTH ONCE WEEKLY [facility] ergocalcife rol, vitamin d2, 1,250 mcg (50,000 unit) capsule 02-04 00:00: 00 Yes [id number] TAKE 1 CAPSULE BY MOUTH ONCE WEEKLY [facility] ergocalcife rol, vitamin d2, 1,250 mcg (50,000 unit) capsule 0 02-04 00:00: 00 Yes [id number] TAKE 1 CAPSULE BY MOUTH ONCE WEEKLY [facility] ergocalcife rol, vitamin d2, 1,250 mcg (50,000 unit) capsule 02-04 00:00: 00 Yes [id number] TAKE 1 CAPSULE BY MOUTH ONCE WEEKLY [facility] ergocalcife rol, vitamin d2, 1,250 mcg (50,000 unit) capsule 02-04 00:00: 00 Yes [id number] TAKE 1 CAPSULE BY MOUTH ONCE WEEKLY [facility] ergocalcife rol, vitamin d2, 1,250 mcg (50,000 unit) capsule 0 02-04 00:00: 00 Yes [id number] TAKE 1 CAPSULE BY MOUTH ONCE WEEKLY [facility] ergocalcife rol, vitamin d2, 1,250 mcg (50,000 unit) capsule 02-04 00:00: 00 Yes [id number] TAKE 1 CAPSULE BY MOUTH ONCE WEEKLY [facility] ergocalcife rol, vitamin d2, 1,250 mcg (50,000 unit) capsule 02-04 00:00: 00 Yes [id number] TAKE 1 CAPSULE BY MOUTH ONCE WEEKLY [facility] ergocalcife rol, vitamin d2, 1,250 mcg (50,000 unit) capsule 02-04 00:00: 00 Yes [id number] TAKE 1 CAPSULE BY MOUTH ONCE WEEKLY [facility] ergocalcife rol, vitamin d2, 1,250 mcg (50,000 unit) capsule 0 02-04 00:00: 00 Yes [id number] TAKE 1 CAPSULE BY MOUTH ONCE WEEKLY [facility] ergocalcife rol, vitamin d2, 1,250 mcg (50,000 unit) capsule 0 02-04 00:00: 00 Yes [id number] TAKE 1 CAPSULE BY MOUTH ONCE WEEKLY [facility] ergocalcife rol, vitamin d2, 1,250 mcg (50,000 unit) capsule 02-04 00:00: 00 Yes [id number] TAKE 1 CAPSULE BY MOUTH ONCE WEEKLY [facility] ergocalcife rol, vitamin d2, 1,250 mcg (50,000 unit) capsule 0 02-04 00:00: 00 Yes [id number] TAKE 1 CAPSULE BY MOUTH ONCE WEEKLY [facility] ergocalcife rol, vitamin d2, 1,250 mcg (50,000 unit) capsule 02-04 00:00: 00 Yes [id number] TAKE 1 CAPSULE BY MOUTH ONCE WEEKLY [facility] ergocalcife rol, vitamin d2, 1,250 mcg (50,000 unit) capsule 02-04 00:00: 00 Yes [id number] TAKE 1 CAPSULE BY MOUTH ONCE WEEKLY [facility] ergocalcife rol, vitamin d2, 1,250 mcg (50,000 unit) capsule 0 02-04 00:00: 00 Yes [id number] TAKE 1 CAPSULE BY MOUTH ONCE WEEKLY [facility] ergocalcife rol, vitamin d2, 1,250 mcg (50,000 unit) capsule 02-04 00:00: 00 Yes [id number] TAKE 1 CAPSULE BY MOUTH ONCE WEEKLY [facility] ergocalcife rol, vitamin d2, 1,250 mcg (50,000 unit) capsule 02-04 00:00: 00 Yes [id number] TAKE 1 CAPSULE BY MOUTH ONCE WEEKLY [facility] ergocalcife rol, vitamin d2, 1,250 mcg (50,000 unit) capsule 02-04 00:00: 00 Yes [id number] TAKE 1 CAPSULE BY MOUTH ONCE WEEKLY [facility] ergocalcife rol, vitamin d2, 1,250 mcg (50,000 unit) capsule 0 02-04 00:00: 00 Yes [id number] TAKE 1 CAPSULE BY MOUTH ONCE WEEKLY [facility] ergocalcife rol, vitamin d2, 1,250 mcg (50,000 unit) capsule 0 02-04 00:00: 00 Yes [id number] TAKE 1 CAPSULE BY MOUTH ONCE WEEKLY [facility] ergocalcife rol, vitamin d2, 1,250 mcg (50,000 unit) capsule 02-04 00:00: 00 Yes [id number] TAKE 1 CAPSULE BY MOUTH ONCE WEEKLY [facility] ergocalcife rol, vitamin d2, 1,250 mcg (50,000 unit) capsule 0 02-04 00:00: 00 Yes [id number] TAKE 1 CAPSULE BY MOUTH ONCE WEEKLY [facility] ergocalcife rol, vitamin d2, 1,250 mcg (50,000 unit) capsule 02-04 00:00: 00 Yes [id number] TAKE 1 CAPSULE BY MOUTH ONCE WEEKLY [facility] ergocalcife rol, vitamin d2, 1,250 mcg (50,000 unit) capsule 02-04 00:00: 00 Yes [id number] TAKE 1 CAPSULE BY MOUTH ONCE WEEKLY [facility] ergocalcife rol, vitamin d2, 1,250 mcg (50,000 unit) capsule 02-04 00:00: 00 Yes [id number] TAKE 1 CAPSULE BY MOUTH ONCE WEEKLY [facility] ergocalcife rol, vitamin d2, 1,250 mcg (50,000 unit) capsule 02-04 00:00: 00 Yes [id number] TAKE 1 CAPSULE BY MOUTH ONCE WEEKLY [facility] ergocalcife rol, vitamin d2, 1,250 mcg (50,000 unit) capsule 02-04 00:00: 00 Yes [id number] TAKE 1 CAPSULE BY MOUTH ONCE WEEKLY [facility] ergocalcife rol, vitamin d2, 1,250 mcg (50,000 unit) capsule 02-04 00:00: 00 Yes [id number] TAKE 1 CAPSULE BY MOUTH ONCE WEEKLY [facility] AMLODIPINE 10 mg tablet 02-01 00:00: 00 Yes [id number] 10mg TAKE ONE TABLET BY MOUTH EVERY MORNING [facility] ATORVASTATI N 40 mg tablet 02-01 00:00: 00 Yes [id number] 40mg TAKE ONE TABLET BY MOUTH AT BEDTIME [facility] AMLODIPINE 10 mg tablet 02-01 00:00: 00 Yes [id number] 10mg TAKE ONE TABLET BY MOUTH EVERY MORNING [facility] ATORVASTATI N 40 mg tablet 2022-0 18 00:00: 00 Yes [id number] 40mg TAKE ONE TABLET BY MOUTH AT BEDTIME [facility] AMLODIPINE 10 mg tablet 2022-0 18 00:00: 00 Yes [id number] 10mg TAKE ONE TABLET BY MOUTH EVERY MORNING [facility] ATORVASTATI N 40 mg tablet 2022-0 18 00:00: 00 Yes [id number] 40mg TAKE ONE TABLET BY MOUTH AT BEDTIME [facility] AMLODIPINE 10 mg tablet 2022-0 18 00:00: 00 Yes [id number] 10mg TAKE ONE TABLET BY MOUTH EVERY MORNING [facility] ATORVASTATI N 40 mg tablet 2022-0 18 00:00: 00 Yes [id number] 40mg TAKE ONE TABLET BY MOUTH AT BEDTIME [facility] AMLODIPINE 10 mg tablet 2022-0 18 00:00: 00 Yes [id number] 10mg TAKE ONE TABLET BY MOUTH EVERY MORNING [facility] ATORVASTATI N 40 mg tablet 2022-0 18 00:00: 00 Yes [id number] 40mg TAKE ONE TABLET BY MOUTH AT BEDTIME [facility] AMLODIPINE 10 mg tablet 2022-0 18 00:00: 00 Yes [id number] 10mg TAKE ONE TABLET BY MOUTH EVERY MORNING [facility] ATORVASTATI N 40 mg tablet 2022-0 18 00:00: 00 Yes [id number] 40mg TAKE ONE TABLET BY MOUTH AT BEDTIME [facility] AMLODIPINE 10 mg tablet 2022-0 18 00:00: 00 Yes [id number] 10mg TAKE ONE TABLET BY MOUTH EVERY MORNING [facility] ATORVASTATI N 40 mg tablet 3-0 18 00:00: 00 Yes [id number] 40mg TAKE ONE TABLET BY MOUTH AT BEDTIME [facility] AMLODIPINE 10 mg tablet 3-0 18 00:00: 00 Yes [id number] 10mg TAKE ONE TABLET BY MOUTH EVERY MORNING [facility] ATORVASTATI N 40 mg tablet 2022-0 18 00:00: 00 Yes [id number] 40mg TAKE ONE TABLET BY MOUTH AT BEDTIME [facility] AMLODIPINE 10 mg tablet 0 18 00:00: 00 Yes [id number] 10mg TAKE ONE TABLET BY MOUTH EVERY MORNING [facility] ATORVASTATI N 40 mg tablet 2022-0 18 00:00: 00 Yes [id number] 40mg TAKE ONE TABLET BY MOUTH AT BEDTIME [facility] AMLODIPINE 10 mg tablet 0 18 00:00: 00 Yes [id number] 10mg TAKE ONE TABLET BY MOUTH EVERY MORNING [facility] ATORVASTATI N 40 mg tablet 0 18 00:00: 00 Yes [id number] 40mg TAKE ONE TABLET BY MOUTH AT BEDTIME [facility] AMLODIPINE 10 mg tablet 0 02-01 00:00: 00 Yes [id number] 10mg TAKE ONE TABLET BY MOUTH EVERY MORNING [facility] ATORVASTATI N 40 mg tablet 2022-0 02-01 00:00: 00 Yes [id number] 40mg TAKE ONE TABLET BY MOUTH AT BEDTIME [facility] AMLODIPINE 10 mg tablet 0 18 00:00: 00 Yes [id number] 10mg TAKE ONE TABLET BY MOUTH EVERY MORNING [facility] ATORVASTATI N 40 mg tablet 0 18 00:00: 00 Yes [id number] 40mg TAKE ONE TABLET BY MOUTH AT BEDTIME [facility] AMLODIPINE 10 mg tablet 0 18 00:00: 00 03-01 00:00 :00 No [id number] 10mg TAKE ONE TABLET BY MOUTH EVERY MORNING [facility] ATORVASTATI N 40 mg tablet 0 18 00:00: 00 03-01 00:00 :00 No [id number] 40mg TAKE ONE TABLET BY MOUTH AT BEDTIME [facility] BASAGLAR KWIKPEN U-100 INSULIN 100 unit/mL (3 mL) injection 0 - 00:00: 00 Yes [id number] INJECT UNDER THE SKIN 45 UNITS DAILY IN MORNING [facility] BASAGLAR KWIKPEN U-100 INSULIN 100 unit/mL (3 mL) injection 0 01-25 00:00: 00 Yes [id number] INJECT UNDER THE SKIN 45 UNITS DAILY IN MORNING [facility] BASAGLAR KWIKPEN U-100 INSULIN 100 unit/mL (3 mL) injection 0 01-25 00:00: 00 Yes [id number] INJECT UNDER THE SKIN 45 UNITS DAILY IN MORNING [facility] BASAGLAR KWIKPEN U-100 INSULIN 100 unit/mL (3 mL) injection 01-25 00:00: 00 Yes [id number] INJECT UNDER THE SKIN 45 UNITS DAILY IN MORNING [facility] BASAGLAR KWIKPEN U-100 INSULIN 100 unit/mL (3 mL) injection 01-25 00:00: 00 Yes [id number] INJECT UNDER THE SKIN 45 UNITS DAILY IN MORNING [facility] BASAGLAR KWIKPEN U-100 INSULIN 100 unit/mL (3 mL) injection 01-25 00:00: 00 Yes [id number] INJECT UNDER THE SKIN 45 UNITS DAILY IN MORNING [facility] BASAGLAR KWIKPEN U-100 INSULIN 100 unit/mL (3 mL) injection 0 01-25 00:00: 00 Yes [id number] INJECT UNDER THE SKIN 45 UNITS DAILY IN MORNING [facility] BASAGLAR KWIKPEN U-100 INSULIN 100 unit/mL (3 mL) injection 0 01-25 00:00: 00 Yes [id number] INJECT UNDER THE SKIN 45 UNITS DAILY IN MORNING [facility] BASAGLAR KWIKPEN U-100 INSULIN 100 unit/mL (3 mL) injection 0 01-25 00:00: 00 Yes [id number] INJECT UNDER THE SKIN 45 UNITS DAILY IN MORNING [facility] BASAGLAR KWIKPEN U-100 INSULIN 100 unit/mL (3 mL) injection 0 01-25 00:00: 00 Yes [id number] INJECT UNDER THE SKIN 45 UNITS DAILY IN MORNING [facility] BASAGLAR KWIKPEN U-100 INSULIN 100 unit/mL (3 mL) injection 0 01-25 00:00: 00 Yes [id number] INJECT UNDER THE SKIN 45 UNITS DAILY IN MORNING [facility] BASAGLAR KWIKPEN U-100 INSULIN 100 unit/mL (3 mL) injection 0 01-25 00:00: 00 Yes [id number] INJECT UNDER THE SKIN 45 UNITS DAILY IN MORNING [facility] BASAGLAR KWIKPEN U-100 INSULIN 100 unit/mL (3 mL) injection 01-25 00:00: 00 Yes [id number] INJECT UNDER THE SKIN 45 UNITS DAILY IN MORNING [facility] BASAGLAR KWIKPEN U-100 INSULIN 100 unit/mL (3 mL) injection 01-25 00:00: 00 Yes [id number] INJECT UNDER THE SKIN 45 UNITS DAILY IN MORNING [facility] BASAGLAR KWIKPEN U-100 INSULIN 100 unit/mL (3 mL) injection 01-25 00:00: 00 Yes [id number] INJECT UNDER THE SKIN 45 UNITS DAILY IN MORNING [facility] BASAGLAR KWIKPEN U-100 INSULIN 100 unit/mL (3 mL) injection 01-25 00:00: 00 Yes [id number] INJECT UNDER THE SKIN 45 UNITS [facility] U-100 INSULIN 100 unit/mL (3 mL) injection 01-25 00:00: 00 Yes [id number] INJECT UNDER THE SKIN 45 UNITS DAILY IN MORNING [facility] BASAGLAR KWIKPEN U-100 INSULIN 100 unit/mL (3 mL) injection 01-25 00:00: 00 Yes [id number] INJECT UNDER THE SKIN 45 UNITS DAILY [facility] MORNING [facility] U-100 INSULIN 100 unit/mL (3 mL) injection 01-25 00:00: 00 Yes [id number] INJECT UNDER THE SKIN 45 UNITS DAILY IN MORNING [facility] BASAGLAR KWIKPEN U-100 INSULIN 100 unit/mL (3 mL) injection 01-25 00:00: 00 Yes [id number] INJECT UNDER THE SKIN 45 UNITS DAILY [facility] MORNING [facility]IK[facility] U-100 INSULIN 100 unit/mL (3 mL) injection 01-25 00:00: 00 Yes [id number] INJECT UNDER THE SKIN 45 UNITS DAILY IN MORNING [facility] BASAGLAR KWIKPEN U-100 INSULIN 100 unit/mL (3 mL) injection 01-25 00:00: 00 Yes [id number] INJECT UNDER THE SKIN 45 UNITS DAILY [facility] MORNING [facility] U-100 INSULIN 100 unit/mL (3 mL) injection 01-25 00:00: 00 Yes [id number] INJECT UNDER THE SKIN 45 UNITS DAILY IN MORNING [facility] BASAGLAR KWIKPEN U-100 INSULIN 100 unit/mL (3 mL) injection 01-25 00:00: 00 Yes [id number] INJECT UNDER THE SKIN 45 UNITS DAILY IN MORNING [facility] BASAGLAR KWIKPEN U-100 INSULIN 100 unit/mL (3 mL) injection 01-25 00:00: 00 Yes [id number] INJECT UNDER THE SKIN 45 UNITS DAILY IN MORNING [facility] BASAGLAR KWIKPEN U-100 INSULIN 100 unit/mL (3 mL) injection 01-25 00:00: 00 Yes [id number] INJECT UNDER THE SKIN 45 UNITS DAILY IN MORNING [facility] BASAGLAR KWIKPEN U-100 INSULIN 100 unit/mL (3 mL) injection 01-25 00:00: 00 Yes [id number] INJECT UNDER THE SKIN 45 UNITS DAILY IN MORNING [facility] BASAGLAR KWIKPEN U-100 INSULIN 100 unit/mL (3 mL) injection 01-25 00:00: 00 Yes [id number] INJECT UNDER THE SKIN 45 UNITS DAILY IN MORNING [facility] BASAGLAR KWIKPEN U-100 INSULIN 100 unit/mL (3 mL) injection 01-25 00:00: 00 04-02 00:00 :00 No [id number] INJECT UNDER THE SKIN 45 UNITS DAILY IN MORNING [facility] BASAGLAR KWIKPEN U-100 INSULIN 100 unit/mL (3 mL) injection 01-25 00:00: 00 04-02 00:00 :00 No [id number] INJECT UNDER THE SKIN 45 UNITS DAILY IN MORNING [facility] TAMSULOSIN 0.4 mg 24 hr capsule 01-19 00:00: 00 Yes [id number] TAKE ONE CAPSULE BY MOUTH EVERY MORNING [facility] TAMSULOSIN 0.4 mg 24 hr capsule 3-0 01-19 00:00: 00 Yes [id number] TAKE ONE CAPSULE BY MOUTH EVERY MORNING [facility] TAMSULOSIN 0.4 mg 24 hr capsule 3-0 01-19 00:00: 00 Yes [id number] TAKE ONE CAPSULE BY MOUTH EVERY MORNING [facility] TAMSULOSIN 0.4 mg 24 hr capsule 3-0 01-19 00:00: 00 Yes [id number] TAKE ONE CAPSULE BY MOUTH EVERY MORNING [facility] TAMSULOSIN 0.4 mg 24 hr capsule 3-0 01-19 00:00: 00 Yes [id number] TAKE ONE CAPSULE BY MOUTH EVERY MORNING [facility] TAMSULOSIN 0.4 mg 24 hr capsule 3-0 01-19 00:00: 00 Yes [id number] TAKE ONE CAPSULE BY MOUTH EVERY MORNING [facility] TAMSULOSIN 0.4 mg 24 hr capsule 3-0 01-19 00:00: 00 Yes [id number] TAKE ONE CAPSULE BY MOUTH EVERY MORNING [facility] TAMSULOSIN 0.4 mg 24 hr capsule 3-0 01-19 00:00: 00 Yes [id number] TAKE ONE CAPSULE BY MOUTH EVERY MORNING [facility] TAMSULOSIN 0.4 mg 24 hr capsule 3-0 01-19 00:00: 00 Yes [id number] TAKE ONE CAPSULE BY MOUTH EVERY MORNING [facility] TAMSULOSIN 0.4 mg 24 hr capsule 3-0 01-19 00:00: 00 Yes [id number] TAKE ONE CAPSULE BY MOUTH EVERY MORNING [facility] TAMSULOSIN 0.4 mg 24 hr capsule 3-0 01-19 00:00: 00 Yes [id number] TAKE ONE CAPSULE BY MOUTH EVERY MORNING [facility] TAMSULOSIN 0.4 mg 24 hr capsule 3-0 01-19 00:00: 00 Yes [id number] TAKE ONE CAPSULE BY MOUTH EVERY MORNING [facility] TAMSULOSIN 0.4 mg 24 hr capsule 3-0 01-19 00:00: 00 Yes [id number] TAKE ONE CAPSULE BY MOUTH EVERY MORNING [facility] TAMSULOSIN 0.4 mg 24 hr capsule 3-0 01-19 00:00: 00 Yes [id number] TAKE ONE CAPSULE BY MOUTH EVERY MORNING [facility] TAMSULOSIN 0.4 mg 24 hr capsule 3-0 01-19 00:00: 00 Yes [id number] TAKE ONE CAPSULE BY MOUTH EVERY MORNING [facility] TAMSULOSIN 0.4 mg 24 hr capsule 3-0 01-19 00:00: 00 Yes [id number] TAKE ONE CAPSULE BY MOUTH EVERY MORNING [facility] TAMSULOSIN 0.4 mg 24 hr capsule 3-0 01-19 00:00: 00 Yes [id number] TAKE ONE CAPSULE BY MOUTH EVERY MORNING [facility] TAMSULOSIN 0.4 mg 24 hr capsule 3-0 01-19 00:00: 00 Yes [id number] TAKE ONE CAPSULE BY MOUTH EVERY MORNING [facility] TAMSULOSIN 0.4 mg 24 hr capsule 3-0 01-19 00:00: 00 Yes [id number] TAKE ONE CAPSULE BY MOUTH EVERY MORNING [facility] TAMSULOSIN 0.4 mg 24 hr capsule 3-0 01-19 00:00: 00 Yes [id number] TAKE ONE CAPSULE BY MOUTH EVERY MORNING [facility] TAMSULOSIN 0.4 mg 24 hr capsule 3-0 01-19 00:00: 00 Yes [id number] TAKE ONE CAPSULE BY MOUTH EVERY MORNING [facility] TAMSULOSIN 0.4 mg 24 hr capsule 3-0 01-19 00:00: 00 Yes [id number] TAKE ONE CAPSULE BY MOUTH EVERY MORNING [facility] TAMSULOSIN 0.4 mg 24 hr capsule 3-0 01-19 00:00: 00 Yes [id number] TAKE ONE CAPSULE BY MOUTH EVERY MORNING [facility] TAMSULOSIN 0.4 mg 24 hr capsule 3-0 01-19 00:00: 00 Yes [id number] TAKE ONE CAPSULE BY MOUTH EVERY MORNING [facility] TAMSULOSIN 0.4 mg 24 hr capsule 3-0 01-19 00:00: 00 Yes [id number] TAKE ONE CAPSULE BY MOUTH EVERY MORNING [facility] TAMSULOSIN 0.4 mg 24 hr capsule 2022-0 01-19 00:00: 00 Yes [id number] TAKE ONE CAPSULE BY MOUTH EVERY MORNING [facility] TAMSULOSIN 0.4 mg 24 hr capsule 3-0 01-19 00:00: 00 Yes [id number] TAKE ONE CAPSULE BY MOUTH EVERY MORNING [facility] TAMSULOSIN 0.4 mg 24 hr capsule 3-0 01-19 00:00: 00 Yes [id number] TAKE ONE CAPSULE BY MOUTH EVERY MORNING [facility] TAMSULOSIN 0.4 mg 24 hr capsule 3-0 01-19 00:00: 00 Yes [id number] TAKE ONE CAPSULE BY MOUTH EVERY MORNING [facility] TAMSULOSIN 0.4 mg 24 hr capsule 3-0 01-19 00:00: 00 Yes [id number] TAKE ONE CAPSULE BY MOUTH EVERY MORNING [facility] TAMSULOSIN 0.4 mg 24 hr capsule 3-0 01-19 00:00: 00 Yes [id number] TAKE ONE CAPSULE BY MOUTH EVERY MORNING [facility] TAMSULOSIN 0.4 mg 24 hr capsule 3-0 01-19 00:00: 00 Yes [id number] TAKE ONE CAPSULE BY MOUTH EVERY MORNING [facility] TAMSULOSIN 0.4 mg 24 hr capsule 3-0 01-19 00:00: 00 Yes [id number] TAKE ONE CAPSULE BY MOUTH EVERY MORNING [facility] TAMSULOSIN 0.4 mg 24 hr capsule 3-0 01-19 00:00: 00 Yes [id number] TAKE ONE CAPSULE BY MOUTH EVERY MORNING [facility] TAMSULOSIN 0.4 mg 24 hr capsule 3-0 01-19 00:00: 00 Yes [id number] TAKE ONE CAPSULE BY MOUTH EVERY MORNING [facility] TAMSULOSIN 0.4 mg 24 hr capsule 3-0 01-19 00:00: 00 Yes [id number] TAKE ONE CAPSULE BY MOUTH EVERY MORNING [facility] TAMSULOSIN 0.4 mg 24 hr capsule 3-0 01-19 00:00: 00 Yes [id number] TAKE ONE CAPSULE BY MOUTH EVERY MORNING [facility] TAMSULOSIN 0.4 mg 24 hr capsule 3-0 01-19 00:00: 00 Yes [id number] TAKE ONE CAPSULE BY MOUTH EVERY MORNING [facility] TAMSULOSIN 0.4 mg 24 hr capsule 2022-0 01-19 00:00: 00 Yes [id number] TAKE ONE CAPSULE BY MOUTH EVERY MORNING [facility] TAMSULOSIN 0.4 mg 24 hr capsule 2022-0 01-19 00:00: 00 06-16 00:00 :00 No [id number] TAKE ONE CAPSULE BY MOUTH EVERY MORNING [facility] OZEMPIC 1 mg/dose (4 mg/3 mL) PnIj 0 01-11 00:00: 00 Yes [id number] DIAL AND INJECT UNDER THE SKIN 1 MG WEEKLY [facility] OZEMPIC 1 mg/dose (4 mg/3 mL) PnIj 0 01-11 00:00: 00 Yes [id number] DIAL AND INJECT UNDER THE SKIN 1 MG WEEKLY [facility] OZEMPIC 1 mg/dose (4 mg/3 mL) PnIj 0 01-11 00:00: 00 Yes [id number] DIAL AND INJECT UNDER THE SKIN 1 MG WEEKLY [facility] OZEMPIC 1 mg/dose (4 mg/3 mL) PnIj 2022-0 01-11 00:00: 00 Yes [id number] DIAL AND INJECT UNDER THE SKIN 1 MG WEEKLY [facility] OZEMPIC 1 mg/dose (4 mg/3 mL) PnIj 0 01-11 00:00: 00 Yes [id number] DIAL AND INJECT UNDER THE SKIN 1 MG WEEKLY [facility] OZEMPIC 1 mg/dose (4 mg/3 mL) PnIj 2022-0 01-11 00:00: 00 Yes [id number] DIAL AND INJECT UNDER THE SKIN 1 MG WEEKLY [facility] OZEMPIC 1 mg/dose (4 mg/3 mL) PnIj 2022-0 01-11 00:00: 00 Yes [id number] DIAL AND INJECT UNDER THE SKIN 1 MG WEEKLY [facility] OZEMPIC 1 mg/dose (4 mg/3 mL) PnIj 2022-0 01-11 00:00: 00 Yes [id number] DIAL AND INJECT UNDER THE SKIN 1 MG WEEKLY [facility] OZEMPIC 1 mg/dose (4 mg/3 mL) PnIj 2022-0 01-11 00:00: 00 Yes [id number] DIAL AND INJECT UNDER THE SKIN 1 MG WEEKLY [facility] OZEMPIC 1 mg/dose (4 mg/3 mL) PnIj 0 01-11 00:00: 00 Yes [id number] DIAL AND INJECT UNDER THE SKIN 1 MG WEEKLY [facility] OZEMPIC 1 mg/dose (4 mg/3 mL) PnIj 2022-0 01-11 00:00: 00 Yes [id number] DIAL AND INJECT UNDER THE SKIN 1 MG WEEKLY [facility] OZEMPIC 1 mg/dose (4 mg/3 mL) PnIj 2022-0 01-11 00:00: 00 Yes [id number] DIAL AND INJECT UNDER THE SKIN 1 MG WEEKLY [facility] OZEMPIC 1 mg/dose (4 mg/3 mL) PnIj 2022-0 01-11 00:00: 00 Yes [id number] DIAL AND INJECT UNDER THE SKIN 1 MG WEEKLY [facility] OZEMPIC 1 mg/dose (4 mg/3 mL) PnIj 2022-0 01-11 00:00: 00 Yes [id number] DIAL AND INJECT UNDER THE SKIN 1 MG WEEKLY [facility] OZEMPIC 1 mg/dose (4 mg/3 mL) PnIj 2022-0 01-11 00:00: 00 Yes [id number] DIAL AND INJECT UNDER THE SKIN 1 MG WEEKLY [facility] OZEMPIC 1 mg/dose (4 mg/3 mL) PnIj 2022-0 01-11 00:00: 00 Yes [id number] DIAL AND INJECT UNDER THE SKIN 1 MG WEEKLY [facility] OZEMPIC 1 mg/dose (4 mg/3 mL) PnIj 3-0 01-11 00:00: 00 Yes [id number] DIAL AND INJECT UNDER THE SKIN 1 MG WEEKLY [facility] OZEMPIC 1 mg/dose (4 mg/3 mL) PnIj 2022-0 01-11 00:00: 00 Yes [id number] DIAL AND INJECT UNDER THE SKIN 1 MG WEEKLY [facility] OZEMPIC 1 mg/dose (4 mg/3 mL) PnIj 3-0 01-11 00:00: 00 Yes [id number] DIAL AND INJECT UNDER THE SKIN 1 MG WEEKLY [facility] OZEMPIC 1 mg/dose (4 mg/3 mL) PnIj 01-11 00:00: 00 03-09 00:00 :00 No [id number] DIAL AND INJECT UNDER THE SKIN 1 MG WEEKLY [facility] OZEMPIC 1 mg/dose (4 mg/3 mL) PnIj 01-11 00:00: 00 03-09 00:00 :00 No [id number] DIAL AND INJECT UNDER THE SKIN 1 MG WEEKLY [facility] OZEMPIC 1 mg/dose (4 mg/3 mL) PnIj 01-11 00:00: 00 03-09 00:00 :00 No [id number] DIAL AND INJECT UNDER THE SKIN 1 MG WEEKLY [facility] lisinopriL 40 mg tablet 11-26 00:00: 00 Yes [id number] 40mg Take 1 tablet by mouth in the morning. [facility] ergocalcife rol, vitamin d2, 1,250 mcg (50,000 unit) capsule 11-26 00:00: 00 Yes [id number] TAKE ONE CAPSULE BY MOUTH WEEKLY [facility] lisinopriL 40 mg tablet 0 11-26 00:00: 00 Yes [id number] 40mg Take 1 tablet by mouth in the morning. [facility] ergocalcife rol, vitamin d2, 1,250 mcg (50,000 unit) capsule 0 11-26 00:00: 00 Yes [id number] TAKE ONE CAPSULE BY MOUTH WEEKLY [facility] lisinopriL 40 mg tablet 0 11-26 00:00: 00 Yes [id number] 40mg Take 1 tablet by mouth in the morning. [facility] ergocalcife rol, vitamin d2, 1,250 mcg (50,000 unit) capsule 0 11-26 00:00: 00 Yes [id number] TAKE ONE CAPSULE BY MOUTH WEEKLY [facility] lisinopriL 40 mg tablet 0 11-26 00:00: 00 Yes [id number] 40mg Take 1 tablet by mouth in the morning. [facility] ergocalcife rol, vitamin d2, 1,250 mcg (50,000 unit) capsule 2022-0 11-26 00:00: 00 Yes [id number] TAKE ONE CAPSULE BY MOUTH WEEKLY [facility] lisinopriL 40 mg tablet 0 11-26 00:00: 00 Yes [id number] 40mg Take 1 tablet by mouth in the morning. [facility] ergocalcife rol, vitamin d2, 1,250 mcg (50,000 unit) capsule 0 11-26 00:00: 00 Yes [id number] TAKE ONE CAPSULE BY MOUTH WEEKLY [facility] lisinopriL 40 mg tablet 2022-0 11-26 00:00: 00 Yes [id number] 40mg Take 1 tablet by mouth in the morning. [facility] ergocalcife rol, vitamin d2, 1,250 mcg (50,000 unit) capsule 2022-0 11-26 00:00: 00 Yes [id number] TAKE ONE CAPSULE BY MOUTH WEEKLY [facility] lisinopriL 40 mg tablet 0 11-26 00:00: 00 Yes [id number] 40mg Take 1 tablet by mouth in the morning. [facility] ergocalcife rol, vitamin d2, 1,250 mcg (50,000 unit) capsule 0 11-26 00:00: 00 Yes [id number] TAKE ONE CAPSULE BY MOUTH WEEKLY [facility] lisinopriL 40 mg tablet 0 11-26 00:00: 00 Yes [id number] 40mg Take 1 tablet by mouth in the morning. [facility] ergocalcife rol, vitamin d2, 1,250 mcg (50,000 unit) capsule 2022-0 11-26 00:00: 00 Yes [id number] TAKE ONE CAPSULE BY MOUTH WEEKLY [facility] lisinopriL 40 mg tablet 2022-0 11-26 00:00: 00 Yes [id number] 40mg Take 1 tablet by mouth in the morning. [facility] ergocalcife rol, vitamin d2, 1,250 mcg (50,000 unit) capsule 2022-0 11-26 00:00: 00 Yes [id number] TAKE ONE CAPSULE BY MOUTH WEEKLY [facility] lisinopriL 40 mg tablet 11-26 00:00: 00 Yes [id number] 40mg Take 1 tablet by mouth in the morning. [facility] ergocalcife rol, vitamin d2, 1,250 mcg (50,000 unit) capsule 11-26 00:00: 00 Yes [id number] TAKE ONE CAPSULE BY MOUTH WEEKLY [facility] lisinopriL 40 mg tablet 0 11-26 00:00: 00 Yes [id number] 40mg Take 1 tablet by mouth in the morning. [facility] lisinopriL 40 mg tablet 0 11-26 00:00: 00 Yes [id number] 40mg Take 1 tablet by mouth in the morning. [facility] lisinopriL 40 mg tablet 0 11-26 00:00: 00 Yes [id number] 40mg Take 1 tablet by mouth in the morning. [facility] lisinopriL 40 mg tablet 0 11-26 00:00: 00 Yes [id number] 40mg Take 1 tablet by mouth in the morning. [facility] lisinopriL 40 mg tablet 11-26 00:00: 00 Yes [id number] 40mg Take 1 tablet by mouth in the morning. [facility] lisinopriL 40 mg tablet 11-26 00:00: 00 Yes [id number] 40mg Take 1 tablet by mouth in the morning. [facility] lisinopriL 40 mg tablet 11-26 00:00: 00 Yes [id number] 40mg Take 1 tablet by mouth in the morning. [facility] lisinopriL 40 mg tablet 0 11-26 00:00: 00 Yes [id number] 40mg Take 1 tablet by mouth in the morning. [facility] lisinopriL 40 mg tablet 0 11-26 00:00: 00 Yes [id number] 40mg Take 1 tablet by mouth in the morning. [facility] lisinopriL 40 mg tablet 0 11-26 00:00: 00 Yes [id number] 40mg Take 1 tablet by mouth in the morning. [facility] lisinopriL 40 mg tablet 2023-0 7-13 00:00: 00 Yes [id number] 40mg Take 1 tablet by mouth in the morning. [facility] lisinopriL 40 mg tablet 3-0 7-13 00:00: 00 Yes [id number] 40mg Take 1 tablet by mouth in the morning. [facility] lisinopriL 40 mg tablet 3-0 7-13 00:00: 00 Yes [id number] 40mg Take 1 tablet by mouth in the morning. [facility] lisinopriL 40 mg tablet 3-0 7-13 00:00: 00 Yes [id number] 40mg Take 1 tablet by mouth in the morning. [facility] lisinopriL 40 mg tablet 3-0 7-13 00:00: 00 Yes [id number] 40mg Take 1 tablet by mouth in the morning. [facility] lisinopriL 40 mg tablet 3-0 7-13 00:00: 00 Yes [id number] 40mg Take 1 tablet by mouth in the morning. [facility] lisinopriL 40 mg tablet 3-0 7-13 00:00: 00 Yes [id number] 40mg Take 1 tablet by mouth in the morning. [facility] lisinopriL 40 mg tablet 3-0 -13 00:00: 00 Yes [id number] 40mg Take 1 tablet by mouth in the morning. [facility] lisinopriL 40 mg tablet 3-0 7-13 00:00: 00 Yes [id number] 40mg Take 1 tablet by mouth in the morning. [facility] lisinopriL 40 mg tablet 3-0 7-13 00:00: 00 Yes [id number] 40mg Take 1 tablet by mouth in the morning. [facility] lisinopriL 40 mg tablet 3-0 7-13 00:00: 00 Yes [id number] 40mg Take 1 tablet by mouth in the morning. [facility] lisinopriL 40 mg tablet 3-0 7-13 00:00: 00 Yes [id number] 40mg Take 1 tablet by mouth in the morning. [facility] lisinopriL 40 mg tablet 2023-0 7-13 00:00: 00 Yes [id number] 40mg Take 1 tablet by mouth in the morning. [facility] lisinopriL 40 mg tablet 2022-0 7-13 00:00: 00 Yes [id number] 40mg Take 1 tablet by mouth in the morning. [facility] lisinopriL 40 mg tablet 2022-0 -13 00:00: 00 Yes [id number] 40mg Take 1 tablet by mouth in the morning. [facility] lisinopriL 40 mg tablet 2022-0 -13 00:00: 00 Yes [id number] 40mg Take 1 tablet by mouth in the morning. [facility] lisinopriL 40 mg tablet 2022-0 -13 00:00: 00 Yes [id number] 40mg Take 1 tablet by mouth in the morning. [facility] lisinopriL 40 mg tablet 2022-0 -13 00:00: 00 Yes [id number] 40mg Take 1 tablet by mouth in the morning. [facility] lisinopriL 40 mg tablet 2022-0 -13 00:00: 00 Yes [id number] 40mg Take 1 tablet by mouth in the morning. [facility] lisinopriL 40 mg tablet 2022-0 13 00:00: 00 Yes [id number] 40mg Take 1 tablet by mouth in the morning. [facility] lisinopriL 40 mg tablet 2022-0 -13 00:00: 00 Yes [id number] 40mg Take 1 tablet by mouth in the morning. [facility] lisinopriL 40 mg tablet 2022-0 -13 00:00: 00 Yes [id number] 40mg Take 1 tablet by mouth in the morning. [facility] lisinopriL 40 mg tablet 3-0 -13 00:00: 00 Yes [id number] 40mg Take 1 tablet by mouth in the morning. [facility] lisinopriL 40 mg tablet 3-0 -13 00:00: 00 Yes [id number] 40mg Take 1 tablet by mouth in the morning. [facility] lisinopriL 40 mg tablet 3-0 7-13 00:00: 00 Yes [id number] 40mg Take 1 tablet by mouth in the morning. [facility] lisinopriL 40 mg tablet 3-0 7-13 00:00: 00 Yes [id number] 40mg Take 1 tablet by mouth in the morning. [facility] lisinopriL 40 mg tablet 3-0 7-13 00:00: 00 Yes [id number] 40mg Take 1 tablet by mouth in the morning. [facility] lisinopriL 40 mg tablet 3-0 7-13 00:00: 00 Yes [id number] 40mg Take 1 tablet by mouth in the morning. [facility] lisinopriL 40 mg tablet 3-0 7-13 00:00: 00 Yes [id number] 40mg Take 1 tablet by mouth in the morning. [facility] lisinopriL 40 mg tablet 3-0 7-13 00:00: 00 Yes [id number] 40mg Take 1 tablet by mouth in the morning. [facility] lisinopriL 40 mg tablet 3-0 7-13 00:00: 00 Yes [id number] 40mg Take 1 tablet by mouth in the morning. [facility] lisinopriL 40 mg tablet 3-0 7-13 00:00: 00 Yes [id number] 40mg Take 1 tablet by mouth in the morning. [facility] lisinopriL 40 mg tablet 3-0 7-13 00:00: 00 Yes [id number] 40mg Take 1 tablet by mouth in the morning. [facility] lisinopriL 40 mg tablet 3-0 7-13 00:00: 00 Yes [id number] 40mg Take 1 tablet by mouth in the morning. [facility] lisinopriL 40 mg tablet 3-0 7-13 00:00: 00 Yes [id number] 40mg Take 1 tablet by mouth in the morning. [facility] lisinopriL 40 mg tablet 3-0 7-13 00:00: 00 Yes [id number] 40mg Take 1 tablet by mouth in the morning. [facility] lisinopriL 40 mg tablet 3-0 7-13 00:00: 00 Yes [id number] 40mg Take 1 tablet by mouth in the morning. [facility] lisinopriL 40 mg tablet 11-26 00:00: 00 Yes [id number] 40mg Take 1 tablet by mouth in the morning. [facility] ergocalcife rol, vitamin d2, 1,250 mcg (50,000 unit) capsule 11-26 00:00: 00 02-04 00:00 :00 No [id number] TAKE ONE CAPSULE BY MOUTH WEEKLY [facility] ergocalcife rol, vitamin d2, 1,250 mcg (50,000 unit) capsule 11-26 00:00: 00 02-04 00:00 :00 No [id number] TAKE ONE CAPSULE BY MOUTH WEEKLY [facility] ergocalcife rol, vitamin d2, 1,250 mcg (50,000 unit) capsule 11-26 00:00: 00 02-04 00:00 :00 No [id number] TAKE ONE CAPSULE BY MOUTH WEEKLY [facility] fenofibrate 145 mg tablet 11-18 00:00: 00 Yes [id number] 145mg Take 1 tablet by mouth in the morning. [facility] semaglutide (OZEMPIC) 1 mg/dose (4 mg/3 mL) PnIj 11-18 00:00: 00 Yes [id number] 1mg inject 1 mg under the skin weekly. [facility] fenofibrate 145 mg tablet 11-18 00:00: 00 Yes [id number] 145mg Take 1 tablet by mouth in the morning. [facility] semaglutide (OZEMPIC) 1 mg/dose (4 mg/3 mL) PnIj 11-18 00:00: 00 Yes [id number] 1mg inject 1 mg under the skin weekly. [facility] fenofibrate 145 mg tablet 11-18 00:00: 00 Yes [id number] 145mg Take 1 tablet by mouth in the morning. [facility] semaglutide (OZEMPIC) 1 mg/dose (4 mg/3 mL) PnIj 11-18 00:00: 00 Yes [id number] 1mg inject 1 mg under the skin weekly. [facility] fenofibrate 145 mg tablet 2022-0 11-18 00:00: 00 Yes [id number] 145mg Take 1 tablet by mouth in the morning. [facility] semaglutide (OZEMPIC) 1 mg/dose (4 mg/3 mL) PnIj 0 11-18 00:00: 00 Yes [id number] 1mg inject 1 mg under the skin weekly. [facility] fenofibrate 145 mg tablet 0 11-18 00:00: 00 Yes [id number] 145mg Take 1 tablet by mouth in the morning. [facility] semaglutide (OZEMPIC) 1 mg/dose (4 mg/3 mL) PnIj 0 11-18 00:00: 00 Yes [id number] 1mg inject 1 mg under the skin weekly. [facility] fenofibrate 145 mg tablet 2022-0 11-18 00:00: 00 Yes [id number] 145mg Take 1 tablet by mouth in the morning. [facility] semaglutide (OZEMPIC) 1 mg/dose (4 mg/3 mL) PnIj 0 11-18 00:00: 00 Yes [id number] 1mg inject 1 mg under the skin weekly. [facility] fenofibrate 145 mg tablet 2022-0 11-18 00:00: 00 Yes [id number] 145mg Take 1 tablet by mouth in the morning. [facility] fenofibrate 145 mg tablet 2022-0 11-18 00:00: 00 Yes [id number] 145mg Take 1 tablet by mouth in the morning. [facility] fenofibrate 145 mg tablet 2022-0 11-18 00:00: 00 Yes [id number] 145mg Take 1 tablet by mouth in the morning. [facility] fenofibrate 145 mg tablet 2022-0 11-18 00:00: 00 Yes [id number] 145mg Take 1 tablet by mouth in the morning. [facility] fenofibrate 145 mg tablet 2022-0 11-18 00:00: 00 Yes [id number] 145mg Take 1 tablet by mouth in the morning. [facility] fenofibrate 145 mg tablet 2022-0 11-18 00:00: 00 Yes [id number] 145mg Take 1 tablet by mouth in the morning. [facility] fenofibrate 145 mg tablet 2022-0 11-18 00:00: 00 Yes [id number] 145mg Take 1 tablet by mouth in the morning. [facility] fenofibrate 145 mg tablet 2022-0 11-18 00:00: 00 Yes [id number] 145mg Take 1 tablet by mouth in the morning. [facility] fenofibrate 145 mg tablet 2022-0 11-18 00:00: 00 Yes [id number] 145mg Take 1 tablet by mouth in the morning. [facility] fenofibrate 145 mg tablet 2022-0 11-18 00:00: 00 Yes [id number] 145mg Take 1 tablet by mouth in the morning. [facility] fenofibrate 145 mg tablet 2022-0 11-18 00:00: 00 Yes [id number] 145mg Take 1 tablet by mouth in the morning. [facility] fenofibrate 145 mg tablet 2022-0 11-18 00:00: 00 Yes [id number] 145mg Take 1 tablet by mouth in the morning. [facility] fenofibrate 145 mg tablet 2022-0 11-18 00:00: 00 Yes [id number] 145mg Take 1 tablet by mouth in the morning. [facility] fenofibrate 145 mg tablet 2022-0 11-18 00:00: 00 Yes [id number] 145mg Take 1 tablet by mouth in the morning. [facility] fenofibrate 145 mg tablet 2022-0 11-18 00:00: 00 Yes [id number] 145mg Take 1 tablet by mouth in the morning. [facility] fenofibrate 145 mg tablet 2022-0 11-18 00:00: 00 Yes [id number] 145mg Take 1 tablet by mouth in the morning. [facility] fenofibrate 145 mg tablet 3-0 11-18 00:00: 00 Yes [id number] 145mg Take 1 tablet by mouth in the morning. [facility] fenofibrate 145 mg tablet 3-0 705 00:00: 00 Yes [id number] 145mg Take 1 tablet by mouth in the morning. [facility] fenofibrate 145 mg tablet 3-0 705 00:00: 00 Yes [id number] 145mg Take 1 tablet by mouth in the morning. [facility] fenofibrate 145 mg tablet 3-0 7 00:00: 00 Yes [id number] 145mg Take 1 tablet by mouth in the morning. [facility] fenofibrate 145 mg tablet 3-0 7- 00:00: 00 Yes [id number] 145mg Take 1 tablet by mouth in the morning. [facility] fenofibrate 145 mg tablet 3-0 7-05 00:00: 00 Yes [id number] 145mg Take 1 tablet by mouth in the morning. [facility] fenofibrate 145 mg tablet 3-0 11-18 00:00: 00 Yes [id number] 145mg Take 1 tablet by mouth in the morning. [facility] fenofibrate 145 mg tablet 3-0 11-18 00:00: 00 Yes [id number] 145mg Take 1 tablet by mouth in the morning. [facility] fenofibrate 145 mg tablet 3-0 05 00:00: 00 Yes [id number] 145mg Take 1 tablet by mouth in the morning. [facility] fenofibrate 145 mg tablet 3-0 05 00:00: 00 Yes [id number] 145mg Take 1 tablet by mouth in the morning. [facility] fenofibrate 145 mg tablet 3-0 705 00:00: 00 Yes [id number] 145mg Take 1 tablet by mouth in the morning. [facility] fenofibrate 145 mg tablet 3-0 705 00:00: 00 Yes [id number] 145mg Take 1 tablet by mouth in the morning. [facility] fenofibrate 145 mg tablet 3-0 7-05 00:00: 00 Yes [id number] 145mg Take 1 tablet by mouth in the morning. [facility] fenofibrate 145 mg tablet 11-18 00:00: 00 Yes [id number] 145mg Take 1 tablet by mouth in the morning. [facility] fenofibrate 145 mg tablet 11-18 00:00: 00 Yes [id number] 145mg Take 1 tablet by mouth in the morning. [facility] fenofibrate 145 mg tablet 11-18 00:00: 00 Yes [id number] 145mg Take 1 tablet by mouth in the morning. [facility] fenofibrate 145 mg tablet 11-18 00:00: 00 Yes [id number] 145mg Take 1 tablet by mouth in the morning. [facility] fenofibrate 145 mg tablet 11-18 00:00: 00 Yes [id number] 145mg Take 1 tablet by mouth in the morning. [facility] fenofibrate 145 mg tablet 11-18 00:00: 00 Yes [id number] 145mg Take 1 tablet by mouth in the morning. [facility] fenofibrate 145 mg tablet 11-18 00:00: 00 Yes [id number] 145mg Take 1 tablet by mouth in the morning. [facility] fenofibrate 145 mg tablet 11-18 00:00: 00 05-16 00:00 :00 No [id number] 145mg Take 1 tablet by mouth in the morning. [facility] semaglutide (OZEMPIC) 1 mg/dose (4 mg/3 mL) PnIj 11-18 00:00: 00 01-11 00:00 :00 No [id number] 1mg inject 1 mg under the skin weekly. [facility] ergocalcife rol, vitamin d2, 1,250 mcg (50,000 unit) capsule 11-12 00:00: 00 Yes [id number] TAKE ONE CAPSULE BY MOUTH WEEKLY [facility] ergocalcife rol, vitamin d2, 1,250 mcg (50,000 unit) capsule 11-12 00:00: 00 11-26 00:00 :00 No [id number] TAKE ONE CAPSULE BY MOUTH WEEKLY [facility] ergocalcife rol, vitamin d2, 1,250 mcg (50,000 unit) capsule 11-12 00:00: 00 11-26 00:00 :00 No [id number] TAKE ONE CAPSULE BY MOUTH WEEKLY [facility] ergocalcife rol, vitamin d2, 1,250 mcg (50,000 unit) capsule 11-12 00:00: 00 11-26 00:00 :00 No [id number] TAKE ONE CAPSULE BY MOUTH WEEKLY [facility] ergocalcife rol, vitamin d2, 1,250 mcg (50,000 unit) capsule 11-12 00:00: 00 11-26 00:00 :00 No [id number] TAKE ONE CAPSULE BY MOUTH WEEKLY [facility] Insulin Glargine (BASAGLAR KWIKPEN U-100 INSULIN) 100 unit/mL (3 mL) injection 10-26 00:00: 00 Yes [id number] 45U inject 45 Units under the skin in the morning. [facility] Insulin Glargine (BASAGLAR KWIKPEN U-100 INSULIN) 100 unit/mL (3 mL) injection 10-26 00:00: 00 Yes [id number] 45U inject 45 Units under the skin in the morning. [facility] Insulin Glargine (BASAGLAR KWIKPEN U-100 INSULIN) 100 unit/mL (3 mL) injection 10-26 00:00: 00 Yes [id number] 45U inject 45 Units under the skin in the morning. [facility] Insulin Glargine (BASAGLAR KWIKPEN U-100 INSULIN) 100 unit/mL (3 mL) injection 10-26 00:00: 00 Yes [id number] 45U inject 45 Units under the skin in the morning. [facility] Insulin Glargine (BASAGLAR KWIKPEN U-100 INSULIN) 100 unit/mL (3 mL) injection 10-26 00:00: 00 Yes [id number] 45U inject 45 Units under the skin in the morning. [facility] Insulin Glargine (BASAGLAR KWIKPEN U-100 INSULIN) 100 unit/mL (3 mL) injection 10-26 00:00: 00 Yes [id number] 45U inject 45 Units under the skin in the morning. [facility] Insulin Glargine (BASAGLAR KWIKPEN U-100 INSULIN) 100 unit/mL (3 mL) injection 10-26 00:00: 00 Yes [id number] 45U inject 45 Units under the skin in the morning. [facility] Insulin Glargine (BASAGLAR KWIKPEN U-100 INSULIN) 100 unit/mL (3 mL) injection 10-26 00:00: 00 Yes [id number] 45U inject 45 Units under the skin in the morning. [facility] Insulin Glargine (BASAGLAR KWIKPEN U-100 INSULIN) 100 unit/mL (3 mL) injection 10-26 00:00: 00 Yes [id number] 45U inject 45 Units under the skin in the morning. [facility] Insulin Glargine (BASAGLAR KWIKPEN U-100 INSULIN) 100 unit/mL (3 mL) injection 10-26 00:00: 00 Yes [id number] 45U inject 45 Units under the skin in the morning. [facility] Insulin Glargine (BASAGLAR KWIKPEN U-100 INSULIN) 100 unit/mL (3 mL) injection 10-26 00:00: 00 Yes [id number] 45U inject 45 Units under the skin in the morning. [facility] Insulin Glargine (BASAGLAR KWIKPEN U-100 INSULIN) 100 unit/mL (3 mL) injection 10-26 00:00: 00 Yes [id number] 45U inject 45 Units under the skin in the morning. [facility] Insulin Glargine (BASAGLAR KWIKPEN U-100 INSULIN) 100 unit/mL (3 mL) injection 10-26 00:00: 00 01-25 00:00 :00 No [id number] 45U inject 45 Units under the skin in the morning. [facility] Insulin Glargine (BASAGLAR KWIKPEN U-100 INSULIN) 100 unit/mL (3 mL) injection 10-21 00:00: 00 Yes [id number] 45U inject 45 Units under the skin in the morning. [facility] Insulin Glargine (BASAGLAR KWIKPEN U-100 INSULIN) 100 unit/mL (3 mL) injection 10-21 00:00: 00 Yes [id number] 45U inject 45 Units under the skin in the morning. [facility] Insulin Glargine (BASAGLAR KWIKPEN U-100 INSULIN) 100 unit/mL (3 mL) injection 10-21 00:00: 00 10-26 00:00 :00 No [id number] 45U inject 45 Units under the skin in the morning. [facility] Vitamin B-12 100 mcg tablet 0 10-05 13:25: 48 Yes 50ug Take 0.5 tablets by mouth in the morning. [facility] Vitamin B-12 100 mcg tablet 0 - 13:25: 48 Yes 50ug Take 0.5 tablets by mouth in the morning. [facility] Vitamin B-12 100 mcg tablet 2022-0 5-22 13:25: 48 Yes 50ug Take 0.5 tablets by mouth in the morning. [facility] Vitamin B-12 100 mcg tablet 2022-0 -22 13:25: 48 Yes 50ug Take 0.5 tablets by mouth in the morning. [facility] Vitamin B-12 100 mcg tablet 2022-0 -22 13:25: 48 Yes 50ug Take 0.5 tablets by mouth in the morning. [facility] Vitamin B-12 100 mcg tablet 2022-0 -22 13:25: 48 Yes 50ug Take 0.5 tablets by mouth in the morning. [facility] Vitamin B-12 100 mcg tablet 2022-0 5-22 13:25: 48 Yes 50ug Take 0.5 tablets by mouth in the morning. [facility] Vitamin B-12 100 mcg tablet 2022-0 5-22 13:25: 48 Yes 50ug Take 0.5 tablets by mouth in the morning. [facility] Vitamin B-12 100 mcg tablet 3-0 5-22 13:25: 48 Yes 50ug Take 0.5 tablets by mouth in the morning. [facility] Vitamin B-12 100 mcg tablet 2023-0 5-22 13:25: 48 Yes 50ug Take 0.5 tablets by mouth in the morning. [facility] Vitamin B-12 100 mcg tablet 3-0 5-22 13:25: 48 Yes 50ug Take 0.5 tablets by mouth in the morning. [facility] Vitamin B-12 100 mcg tablet 3-0 5-22 13:25: 48 Yes 50ug Take 0.5 tablets by mouth in the morning. [facility] Vitamin B-12 100 mcg tablet 3-0 5-22 13:25: 48 Yes 50ug Take 0.5 tablets by mouth in the morning. [facility] Vitamin B-12 100 mcg tablet 3-0 5-22 13:25: 48 Yes 50ug Take 0.5 tablets by mouth in the morning. [facility] Vitamin B-12 100 mcg tablet 3-0 5-22 13:25: 48 Yes 50ug Take 0.5 tablets by mouth in the morning. [facility] Vitamin B-12 100 mcg tablet 3-0 5-22 13:25: 48 Yes 50ug Take 0.5 tablets by mouth in the morning. [facility] Vitamin B-12 100 mcg tablet 3-0 5-22 13:25: 48 Yes 50ug Take 0.5 tablets by mouth in the morning. [facility] Vitamin B-12 100 mcg tablet 3-0 5-22 13:25: 48 Yes 50ug Take 0.5 tablets by mouth in the morning. [facility] Vitamin B-12 100 mcg tablet 3-0 5-22 13:25: 48 Yes 50ug Take 0.5 tablets by mouth in the morning. [facility] Vitamin B-12 100 mcg tablet 2023-0 5-22 13:25: 48 Yes 50ug Take 0.5 tablets by mouth in the morning. [facility] Vitamin B-12 100 mcg tablet 2023-0 5-22 13:25: 48 Yes 50ug Take 0.5 tablets by mouth in the morning. [facility] Vitamin B-12 100 mcg tablet 3-0 5-22 13:25: 48 Yes 50ug Take 0.5 tablets by mouth in the morning. [facility] Vitamin B-12 100 mcg tablet 2023-0 5-22 13:25: 48 Yes 50ug Take 0.5 tablets by mouth in the morning. [facility] Vitamin B-12 100 mcg tablet 3-0 5-22 13:25: 48 Yes 50ug Take 0.5 tablets by mouth in the morning. [facility] Vitamin B-12 100 mcg tablet 3-0 5-22 13:25: 48 Yes 50ug Take 0.5 tablets by mouth in the morning. [facility] Vitamin B-12 100 mcg tablet 3-0 5-22 13:25: 48 Yes 50ug Take 0.5 tablets by mouth in the morning. [facility] Vitamin B-12 100 mcg tablet 2022-0 5-22 13:25: 48 Yes 50ug Take 0.5 tablets by mouth in the morning. [facility] Vitamin B-12 100 mcg tablet 3-0 5-22 13:25: 48 Yes 50ug Take 0.5 tablets by mouth in the morning. [facility] Vitamin B-12 100 mcg tablet 3-0 5-22 13:25: 48 Yes 50ug Take 0.5 tablets by mouth in the morning. [facility] Vitamin B-12 100 mcg tablet 3-0 5-22 13:25: 48 Yes 50ug Take 0.5 tablets by mouth in the morning. [facility] Vitamin B-12 100 mcg tablet 3-0 5-22 13:25: 48 Yes 50ug Take 0.5 tablets by mouth in the morning. [facility] Vitamin B-12 100 mcg tablet 3-0 5-22 13:25: 48 Yes 50ug Take 0.5 tablets by mouth in the morning. [facility] Vitamin B-12 100 mcg tablet 2023-0 5-22 13:25: 48 Yes 50ug Take 0.5 tablets by mouth in the morning. [facility] Vitamin B-12 100 mcg tablet 3-0 5-22 13:25: 48 Yes 50ug Take 0.5 tablets by mouth in the morning. [facility] Vitamin B-12 100 mcg tablet 2023-0 5-22 13:25: 48 Yes 50ug Take 0.5 tablets by mouth in the morning. [facility] Vitamin B-12 100 mcg tablet 3-0 5-22 13:25: 48 Yes 50ug Take 0.5 tablets by mouth in the morning. [facility] Vitamin B-12 100 mcg tablet 3-0 5-22 13:25: 48 Yes 50ug Take 0.5 tablets by mouth in the morning. [facility] Vitamin B-12 100 mcg tablet 3-0 5-22 13:25: 48 Yes 50ug Take 0.5 tablets by mouth in the morning. [facility] Vitamin B-12 100 mcg tablet 3-0 5-22 13:25: 48 Yes 50ug Take 0.5 tablets by mouth in the morning. [facility] Vitamin B-12 100 mcg tablet 3-0 5-22 13:25: 48 Yes 50ug Take 0.5 tablets by mouth in the morning. [facility] Vitamin B-12 100 mcg tablet 3-0 5-22 13:25: 48 Yes 50ug Take 0.5 tablets by mouth in the morning. [facility] Vitamin B-12 100 mcg tablet 3-0 5-22 13:25: 48 Yes 50ug Take 0.5 tablets by mouth in the morning. [facility] Vitamin B-12 100 mcg tablet 3-0 5-22 13:25: 48 Yes 50ug Take 0.5 tablets by mouth in the morning. [facility] Vitamin B-12 100 mcg tablet 3-0 5-22 13:25: 48 Yes 50ug Take 0.5 tablets by mouth in the morning. [facility] Vitamin B-12 100 mcg tablet 2023-0 5-22 13:25: 48 Yes 50ug Take 0.5 tablets by mouth in the morning. [facility] Vitamin B-12 100 mcg tablet 2023-0 5-22 13:25: 48 Yes 50ug Take 0.5 tablets by mouth in the morning. [facility] Vitamin B-12 100 mcg tablet 3-0 5-22 13:25: 48 Yes 50ug Take 0.5 tablets by mouth in the morning. [facility] Vitamin B-12 100 mcg tablet 2023-0 5-22 13:25: 48 Yes 50ug Take 0.5 tablets by mouth in the morning. [facility] Vitamin B-12 100 mcg tablet 3-0 5-22 13:25: 48 Yes 50ug Take 0.5 tablets by mouth in the morning. [facility] Vitamin B-12 100 mcg tablet 3-0 5-22 13:25: 48 Yes 50ug Take 0.5 tablets by mouth in the morning. [facility] Vitamin B-12 100 mcg tablet 3-0 5-22 13:25: 48 Yes 50ug Take 0.5 tablets by mouth in the morning. [facility] Vitamin B-12 100 mcg tablet 2022-0 5-22 13:25: 48 Yes 50ug Take 0.5 tablets by mouth in the morning. [facility] Vitamin B-12 100 mcg tablet 3-0 5-22 13:25: 48 Yes 50ug Take 0.5 tablets by mouth in the morning. [facility] Vitamin B-12 100 mcg tablet 3-0 5-22 13:25: 48 Yes 50ug Take 0.5 tablets by mouth in the morning. [facility] Vitamin B-12 100 mcg tablet 3-0 5-22 13:25: 48 Yes 50ug Take 0.5 tablets by mouth in the morning. [facility] Vitamin B-12 100 mcg tablet 3-0 5-22 13:25: 48 Yes 50ug Take 0.5 tablets by mouth in the morning. [facility] Vitamin B-12 100 mcg tablet 3-0 5-22 13:25: 48 Yes 50ug Take 0.5 tablets by mouth in the morning. [facility] Vitamin B-12 100 mcg tablet 2023-0 5-22 13:25: 48 Yes 50ug Take 0.5 tablets by mouth in the morning. [facility] Vitamin B-12 100 mcg tablet 2022-0 -22 13:25: 48 Yes 50ug Take 0.5 tablets by mouth in the morning. [facility] Vitamin B-12 100 mcg tablet 2022-0 5-22 13:25: 48 Yes 50ug Take 0.5 tablets by mouth in the morning. [facility] Vitamin B-12 100 mcg tablet 2022-0 5-22 13:25: 48 Yes 50ug Take 0.5 tablets by mouth in the morning. [facility] Vitamin B-12 100 mcg tablet 2022-0 -22 13:25: 48 Yes 50ug Take 0.5 tablets by mouth in the morning. [facility] Vitamin B-12 100 mcg tablet 2022-0 - 13:25: 48 Yes 50ug Take 0.5 tablets by mouth in the morning. [facility] Vitamin B-12 100 mcg tablet 2022-0 - 13:25: 48 Yes 50ug Take 0.5 tablets by mouth in the morning. [facility] Vitamin B-12 100 mcg tablet 2022-0 10-05 13:25: 48 Yes 50ug Take 0.5 tablets by mouth in the morning. [facility] Vitamin B-12 100 mcg tablet 2022-0 22 13:25: 48 Yes 50ug Take 0.5 tablets by mouth in the morning. [facility] Vitamin B-12 100 mcg tablet 2022-0 22 13:25: 48 Yes 50ug Take 0.5 tablets by mouth in the morning. [facility] Nitrofurant oin&Nit. Macrocryst 100 mg capsule 2022-0 16 00:00: 00 Yes [facility] Nitrofurant oin&Nit. Macrocryst 100 mg capsule 2022-0 16 00:00: 00 Yes [facility] Nitrofurant oin&Nit. Macrocryst 100 mg capsule 2022-0 16 00:00: 00 Yes [facility] Nitrofurant oin&Nit. Macrocryst 100 mg capsule 2022-0 16 00:00: 00 Yes [facility] Nitrofurant oin&Nit. Macrocryst 100 mg capsule 3-0 16 00:00: 00 Yes [facility] Nitrofurant oin&Nit. Macrocryst 100 mg capsule 3-0 16 00:00: 00 Yes [facility] Nitrofurant oin&Nit. Macrocryst 100 mg capsule 3-0 16 00:00: 00 Yes [facility] Nitrofurant oin&Nit. Macrocryst 100 mg capsule 3-0 16 00:00: 00 Yes [facility] Nitrofurant oin&Nit. Macrocryst 100 mg capsule 3-0 16 00:00: 00 Yes [facility] Nitrofurant oin&Nit. Macrocryst 100 mg capsule 3-0 16 00:00: 00 Yes [facility] Nitrofurant oin&Nit. Macrocryst 100 mg capsule 3-0 16 00:00: 00 Yes [facility] Nitrofurant oin&Nit. Macrocryst 100 mg capsule 3-0 16 00:00: 00 Yes [facility] Nitrofurant oin&Nit. Macrocryst 100 mg capsule 3-0 16 00:00: 00 Yes [facility] Nitrofurant oin&Nit. Macrocryst 100 mg capsule 3-0 16 00:00: 00 Yes [facility] Nitrofurant oin&Nit. Macrocryst 100 mg capsule 3-0 16 00:00: 00 Yes [facility] Nitrofurant oin&Nit. Macrocryst 100 mg capsule 3-0 16 00:00: 00 Yes [facility] Nitrofurant oin&Nit. Macrocryst 100 mg capsule 3-0 16 00:00: 00 Yes [facility] Nitrofurant oin&Nit. Macrocryst 100 mg capsule 3-0 16 00:00: 00 Yes [facility] Nitrofurant oin&Nit. Macrocryst 100 mg capsule 3-0 5-16 00:00: 00 Yes [facility] Nitrofurant oin&Nit. Macrocryst 100 mg capsule 3-0 09-29 00:00: 00 Yes [facility] Nitrofurant oin&Nit. Macrocryst 100 mg capsule 3-0 16 00:00: 00 Yes [facility] Nitrofurant oin&Nit. Macrocryst 100 mg capsule 3-0 16 00:00: 00 Yes [facility] Nitrofurant oin&Nit. Macrocryst 100 mg capsule 3-0 16 00:00: 00 Yes [facility] Nitrofurant oin&Nit. Macrocryst 100 mg capsule 3-0 16 00:00: 00 Yes [facility] Nitrofurant oin&Nit. Macrocryst 100 mg capsule 3-0 16 00:00: 00 Yes [facility] Nitrofurant oin&Nit. Macrocryst 100 mg capsule 3-0 16 00:00: 00 Yes [facility] Nitrofurant oin&Nit. Macrocryst 100 mg capsule 3-0 16 00:00: 00 Yes [facility] Nitrofurant oin&Nit. Macrocryst 100 mg capsule 3-0 16 00:00: 00 Yes [facility] Nitrofurant oin&Nit. Macrocryst 100 mg capsule 3-0 16 00:00: 00 Yes [facility] Nitrofurant oin&Nit. Macrocryst 100 mg capsule 3-0 16 00:00: 00 Yes [facility] Nitrofurant oin&Nit. Macrocryst 100 mg capsule 3-0 16 00:00: 00 Yes [facility] Nitrofurant oin&Nit. Macrocryst 100 mg capsule 3-0 16 00:00: 00 Yes [facility] Nitrofurant oin&Nit. Macrocryst 100 mg capsule 3-0 16 00:00: 00 Yes [facility] Nitrofurant oin&Nit. Macrocryst 100 mg capsule 2022-0 09-29 00:00: 00 Yes [facility] Nitrofurant oin&Nit. Macrocryst 100 mg capsule 2022-0 16 00:00: 00 Yes [facility] Nitrofurant oin&Nit. Macrocryst 100 mg capsule 3-0 16 00:00: 00 Yes [facility] Nitrofurant oin&Nit. Macrocryst 100 mg capsule 2022-0 16 00:00: 00 Yes [facility] Nitrofurant oin&Nit. Macrocryst 100 mg capsule 3-0 16 00:00: 00 Yes [facility] Nitrofurant oin&Nit. Macrocryst 100 mg capsule 2022-0 09-29 00:00: 00 Yes [facility] Nitrofurant oin&Nit. Macrocryst 100 mg capsule 2022-0 16 00:00: 00 Yes [facility] Nitrofurant oin&Nit. Macrocryst 100 mg capsule 2022-0 16 00:00: 00 Yes [facility] Nitrofurant oin&Nit. Macrocryst 100 mg capsule 2022-0 16 00:00: 00 Yes [facility] Nitrofurant oin&Nit. Macrocryst 100 mg capsule 2022-0 09-29 00:00: 00 Yes [facility] Nitrofurant oin&Nit. Macrocryst 100 mg capsule 2022-0 16 00:00: 00 Yes [facility] Nitrofurant oin&Nit. Macrocryst 100 mg capsule 2022-0 09-29 00:00: 00 Yes [facility] Nitrofurant oin&Nit. Macrocryst 100 mg capsule 2022-0 16 00:00: 00 Yes [facility] Nitrofurant oin&Nit. Macrocryst 100 mg capsule 3-0 16 00:00: 00 Yes [facility] Nitrofurant oin&Nit. Macrocryst 100 mg capsule 3-0 16 00:00: 00 Yes [facility] Nitrofurant oin&Nit. Macrocryst 100 mg capsule 3-0 16 00:00: 00 Yes [facility] Nitrofurant oin&Nit. Macrocryst 100 mg capsule 3-0 16 00:00: 00 Yes [facility] Nitrofurant oin&Nit. Macrocryst 100 mg capsule 3-0 16 00:00: 00 Yes [facility] Nitrofurant oin&Nit. Macrocryst 100 mg capsule 3-0 16 00:00: 00 Yes [facility] Nitrofurant oin&Nit. Macrocryst 100 mg capsule 3-0 16 00:00: 00 Yes [facility] Nitrofurant oin&Nit. Macrocryst 100 mg capsule 3-0 16 00:00: 00 Yes [facility] Nitrofurant oin&Nit. Macrocryst 100 mg capsule 3-0 16 00:00: 00 Yes [facility] Nitrofurant oin&Nit. Macrocryst 100 mg capsule 3-0 16 00:00: 00 Yes [facility] Nitrofurant oin&Nit. Macrocryst 100 mg capsule 3-0 16 00:00: 00 Yes [facility] Nitrofurant oin&Nit. Macrocryst 100 mg capsule 3-0 16 00:00: 00 Yes [facility] Nitrofurant oin&Nit. Macrocryst 100 mg capsule 3-0 16 00:00: 00 Yes [facility] Nitrofurant oin&Nit. Macrocryst 100 mg capsule 3-0 16 00:00: 00 Yes [facility] Nitrofurant oin&Nit. Macrocryst 100 mg capsule 3-0 16 00:00: 00 Yes [facility] Nitrofurant oin&Nit. Macrocryst 100 mg capsule 3-0 16 00:00: 00 Yes [facility] Nitrofurant oin&Nit. Macrocryst 100 mg capsule 3-0 16 00:00: 00 Yes [facility] Nitrofurant oin&Nit. Macrocryst 100 mg capsule 0 16 00:00: 00 Yes [facility] Nitrofurant oin&Nit. Macrocryst 100 mg capsule 2022-0 16 00:00: 00 Yes [facility] Nitrofurant oin&Nit. Macrocryst 100 mg capsule 2022-0 16 00:00: 00 Yes [facility] Nitrofurant oin&Nit. Macrocryst 100 mg capsule 2022-0 16 00:00: 00 Yes [facility] ALLOPURINOL 100 mg tablet 2022-0 09-17 00:00: 00 Yes [id number] TAKE TWO TABLETS BY MOUTH EVERY MORNING [facility] tablet 2022-0 09-17 00:00: 00 Yes [id number] TAKE TWO TABLETS BY MOUTH EVERY MORNING [facility] mg tablet 2022-0 09-17 00:00: 00 Yes [id number] TAKE TWO TABLETS BY MOUTH EVERY MORNING [facility] mg tablet 2022-0 09-17 00:00: 00 Yes [id number] TAKE TWO TABLETS BY MOUTH EVERY MORNING [facility] ALLOPURINOL 100 mg tablet 2022-0 09-17 00:00: 00 Yes [id number] TAKE TWO TABLETS BY MOUTH EVERY MORNING [facility] mg tablet 2022-0 09-17 00:00: 00 Yes [id number] TAKE TWO TABLETS BY MOUTH EVERY MORNING [facility] mg tablet 2022-0 09-17 00:00: 00 Yes [id number] TAKE TWO TABLETS BY MOUTH EVERY MORNING [facility] mg tablet 2022-0 04 00:00: 00 Yes [id number] TAKE TWO TABLETS BY MOUTH EVERY MORNING [facility] ALL[facility] mg tablet 3-0 09-17 00:00: 00 Yes [id number] TAKE TWO TABLETS BY MOUTH EVERY MORNING [facility] mg tablet 2022-0 -04 00:00: 00 Yes [id number] TAKE TWO TABLETS BY MOUTH EVERY MORNING [facility] ALLOPURINOL 100 mg tablet 2022-0 5-04 00:00: 00 Yes [id number] TAKE TWO TABLETS BY MOUTH EVERY MORNING [facility] ALLOPURINOL 100 mg tablet 2022-0 5-04 00:00: 00 Yes [id number] TAKE TWO TABLETS BY MOUTH EVERY MORNING [facility] ALLOPURINOL 100 mg tablet 3-0 5-04 00:00: 00 Yes [id number] TAKE TWO TABLETS BY MOUTH EVERY MORNING [facility] ALLOPURINOL 100 mg tablet 3-0 5-04 00:00: 00 Yes [id number] TAKE TWO TABLETS BY MOUTH EVERY MORNING [facility] ALLOPURINOL 100 mg tablet 2022-0 5-04 00:00: 00 Yes [id number] TAKE TWO TABLETS BY MOUTH EVERY MORNING [facility] ALLOPURINOL 100 mg tablet 2022-0 5-04 00:00: 00 Yes [id number] TAKE TWO TABLETS BY MOUTH EVERY MORNING [facility] ALLOPURINOL 100 mg tablet 2022-0 5-04 00:00: 00 Yes [id number] TAKE TWO TABLETS BY MOUTH EVERY MORNING [facility] ALLOPURINOL 100 mg tablet 2022-0 5-04 00:00: 00 Yes [id number] TAKE TWO TABLETS BY MOUTH EVERY MORNING [facility] ALLOPURINOL 100 mg tablet 3-0 5-04 00:00: 00 Yes [id number] TAKE TWO TABLETS BY MOUTH EVERY MORNING [facility] ALLOPURINOL 100 mg tablet 3-0 5-04 00:00: 00 Yes [id number] TAKE TWO TABLETS BY MOUTH EVERY MORNING [facility] ALLOPURINOL 100 mg tablet 3-0 5-04 00:00: 00 Yes [id number] TAKE TWO TABLETS BY MOUTH EVERY MORNING [facility] ALLOPURINOL 100 mg tablet 3-0 5-04 00:00: 00 Yes [id number] TAKE TWO TABLETS BY MOUTH EVERY MORNING [facility] ALLOPURINOL 100 mg tablet 3-0 5-04 00:00: 00 Yes [id number] TAKE TWO TABLETS BY MOUTH EVERY MORNING [facility] ALLOPURINOL 100 mg tablet 2023-0 5-04 00:00: 00 Yes [id number] TAKE TWO TABLETS BY MOUTH EVERY MORNING [facility] ALLOPURINOL 100 mg tablet 2022-0 5- 00:00: 00 Yes [id number] TAKE TWO TABLETS BY MOUTH EVERY MORNING [facility] ALLOPURINOL 100 mg tablet 2022-0 5- 00:00: 00 Yes [id number] TAKE TWO TABLETS BY MOUTH EVERY MORNING [facility] ALLOPURINOL 100 mg tablet 2022-0 - 00:00: 00 Yes [id number] TAKE TWO TABLETS BY MOUTH EVERY MORNING [facility] ALLOPURINOL 100 mg tablet 2022-0 -04 00:00: 00 Yes [id number] TAKE TWO TABLETS BY MOUTH EVERY MORNING [facility] ALLOPURINOL 100 mg tablet 2022-0 - 00:00: 00 Yes [id number] TAKE TWO TABLETS BY MOUTH EVERY MORNING [facility] ALLOPURINOL 100 mg tablet 2022-0 - 00:00: 00 Yes [id number] TAKE TWO TABLETS BY MOUTH EVERY MORNING [facility] ALLOPURINOL 100 mg tablet 2022-0 -04 00:00: 00 Yes [id number] TAKE TWO TABLETS BY MOUTH EVERY MORNING [facility] ALLOPURINOL 100 mg tablet 2022-0 -04 00:00: 00 Yes [id number] TAKE TWO TABLETS BY MOUTH EVERY MORNING [facility] ALLOPURINOL 100 mg tablet 2022-0 -04 00:00: 00 Yes [id number] TAKE TWO TABLETS BY MOUTH EVERY MORNING [facility] ALLOPURINOL 100 mg tablet 2022-0 -04 00:00: 00 Yes [id number] TAKE TWO TABLETS BY MOUTH EVERY MORNING [facility] ALLOPURINOL 100 mg tablet 3-0 -04 00:00: 00 Yes [id number] TAKE TWO TABLETS BY MOUTH EVERY MORNING [facility] ALLOPURINOL 100 mg tablet 3-0 5-04 00:00: 00 Yes [id number] TAKE TWO TABLETS BY MOUTH EVERY MORNING [facility] ALLOPURINOL 100 mg tablet 2022-0 5-04 00:00: 00 Yes [id number] TAKE TWO TABLETS BY MOUTH EVERY MORNING [facility] ALLOPURINOL 100 mg tablet 2022-0 5 00:00: 00 Yes [id number] TAKE TWO TABLETS BY MOUTH EVERY MORNING [facility] ALLOPURINOL 100 mg tablet 2022-0 5- 00:00: 00 03-15 00:00 :00 No [id number] TAKE TWO TABLETS BY MOUTH EVERY MORNING [facility] ALLOPURINOL 100 mg tablet 2022-0 5 00:00: 00 03-15 00:00 :00 No [id number] TAKE TWO TABLETS BY MOUTH EVERY MORNING [facility] ALLOPURINOL 100 mg tablet 2022-0 5 00:00: 00 03-15 00:00 :00 No [id number] TAKE TWO TABLETS BY MOUTH EVERY MORNING [facility] nebivoloL 10 mg tablet 2022-0 09-09 00:00: 00 Yes [id number] 10mg Take 1 tablet by mouth in the morning. [facility] metformin ER 500 mg 24 hr tablet 2022-0 09-09 00:00: 00 Yes [id number] 1000mg Take 2 tablets by mouth in the morning and 2 tablets in the evening. [facility] lisinopriL 40 mg tablet 2022-0 09-09 00:00: 00 Yes [id number] 40mg Take 1 tablet by mouth in the morning. [facility] allopurinoL 100 mg tablet 2022-0 09-09 00:00: 00 Yes [id number] 200mg Take 2 tablets by mouth in the morning. [facility] nebivoloL 10 mg tablet 2022-0 09-09 00:00: 00 Yes [id number] 10mg Take 1 tablet by mouth in the morning. [facility] metformin ER 500 mg 24 hr tablet 2022-0 09-09 00:00: 00 Yes [id number] 1000mg Take 2 tablets by mouth in the morning and 2 tablets in the evening. [facility] lisinopriL 40 mg tablet 2022-0 09-09 00:00: 00 Yes [id number] 40mg Take 1 tablet by mouth in the morning. [facility] allopurinoL 100 mg tablet 2022-0 09-09 00:00: 00 Yes [id number] 200mg Take 2 tablets by mouth in the morning. [facility] nebivoloL 10 mg tablet 2022-0 09-09 00:00: 00 Yes [id number] 10mg Take 1 tablet by mouth in the morning. [facility] metformin ER 500 mg 24 hr tablet 2022-0 09-09 00:00: 00 Yes [id number] 1000mg Take 2 tablets by mouth in the morning and 2 tablets in the evening. [facility] lisinopriL 40 mg tablet 2022-0 09-09 00:00: 00 Yes [id number] 40mg Take 1 tablet by mouth in the morning. [facility] allopurinoL 100 mg tablet 2022-0 09-09 00:00: 00 Yes [id number] 200mg Take 2 tablets by mouth in the morning. [facility] nebivoloL 10 mg tablet 2022-0 09-09 00:00: 00 Yes [id number] 10mg Take 1 tablet by mouth in the morning. [facility] metformin ER 500 mg 24 hr tablet 2022-0 09-09 00:00: 00 Yes [id number] 1000mg Take 2 tablets by mouth in the morning and 2 tablets in the evening. [facility] lisinopriL 40 mg tablet 2022-0 09-09 00:00: 00 Yes [id number] 40mg Take 1 tablet by mouth in the morning. [facility] allopurinoL 100 mg tablet 2022-0 09-09 00:00: 00 Yes [id number] 200mg Take 2 tablets by mouth in the morning. [facility] nebivoloL 10 mg tablet 2022-0 09-09 00:00: 00 Yes [id number] 10mg Take 1 tablet by mouth in the morning. [facility] metformin ER 500 mg 24 hr tablet 2022-0 09-09 00:00: 00 Yes [id number] 1000mg Take 2 tablets by mouth in the morning and 2 tablets in the evening. [facility] lisinopriL 40 mg tablet 3-0 09-09 00:00: 00 Yes [id number] 40mg Take 1 tablet by mouth in the morning. [facility] allopurinoL 100 mg tablet 09-09 00:00: 00 Yes [id number] 200mg Take 2 tablets by mouth in the morning. [facility] nebivoloL 10 mg tablet 09-09 00:00: 00 Yes [id number] 10mg Take 1 tablet by mouth in the morning. [facility] metformin ER 500 mg 24 hr tablet 09-09 00:00: 00 Yes [id number] 1000mg Take 2 tablets by mouth in the morning and 2 tablets in the evening. [facility] lisinopriL 40 mg tablet 09-09 00:00: 00 Yes [id number] 40mg Take 1 tablet by mouth in the morning. [facility] nebivoloL 10 mg tablet 09-09 00:00: 00 Yes [id number] 10mg Take 1 tablet by mouth in the morning. [facility] metformin ER 500 mg 24 hr tablet 09-09 00:00: 00 Yes [id number] 1000mg Take 2 tablets by mouth in the morning and 2 tablets in the evening. [facility] lisinopriL 40 mg tablet 09-09 00:00: 00 Yes [id number] 40mg Take 1 tablet by mouth in the morning. [facility] nebivoloL 10 mg tablet 09-09 00:00: 00 Yes [id number] 10mg Take 1 tablet by mouth in the morning. [facility] metformin ER 500 mg 24 hr tablet 09-09 00:00: 00 Yes [id number] 1000mg Take 2 tablets by mouth in the morning and 2 tablets in the evening. [facility] lisinopriL 40 mg tablet 09-09 00:00: 00 Yes [id number] 40mg Take 1 tablet by mouth in the morning. [facility] nebivoloL 10 mg tablet 09-09 00:00: 00 Yes [id number] 10mg Take 1 tablet by mouth in the morning. [facility] metformin ER 500 mg 24 hr tablet 09-09 00:00: 00 Yes [id number] 1000mg Take 2 tablets by mouth in the morning and 2 tablets in the evening. [facility] lisinopriL 40 mg tablet 2022-0 09-09 00:00: 00 Yes [id number] 40mg Take 1 tablet by mouth in the morning. [facility] nebivoloL 10 mg tablet 2022-0 09-09 00:00: 00 Yes [id number] 10mg Take 1 tablet by mouth in the morning. [facility] metformin ER 500 mg 24 hr tablet 0 09-09 00:00: 00 Yes [id number] 1000mg Take 2 tablets by mouth in the morning and 2 tablets in the evening. [facility] lisinopriL 40 mg tablet 0 09-09 00:00: 00 Yes [id number] 40mg Take 1 tablet by mouth in the morning. [facility] nebivoloL 10 mg tablet 0 09-09 00:00: 00 Yes [id number] 10mg Take 1 tablet by mouth in the morning. [facility] metformin ER 500 mg 24 hr tablet 0 09-09 00:00: 00 Yes [id number] 1000mg Take 2 tablets by mouth in the morning and 2 tablets in the evening. [facility] lisinopriL 40 mg tablet 0 09-09 00:00: 00 Yes [id number] 40mg Take 1 tablet by mouth in the morning. [facility] nebivoloL 10 mg tablet 0 09-09 00:00: 00 Yes [id number] 10mg Take 1 tablet by mouth in the morning. [facility] metformin ER 500 mg 24 hr tablet 0 09-09 00:00: 00 Yes [id number] 1000mg Take 2 tablets by mouth in the morning and 2 tablets in the evening. [facility] lisinopriL 40 mg tablet 2022-0 09-09 00:00: 00 Yes [id number] 40mg Take 1 tablet by mouth in the morning. [facility] nebivoloL 10 mg tablet 2022-0 09-09 00:00: 00 Yes [id number] 10mg Take 1 tablet by mouth in the morning. [facility] metformin ER 500 mg 24 hr tablet 2022-0 09-09 00:00: 00 Yes [id number] 1000mg Take 2 tablets by mouth in the morning and 2 tablets in the evening. [facility] lisinopriL 40 mg tablet 2022-0 09-09 00:00: 00 Yes [id number] 40mg Take 1 tablet by mouth in the morning. [facility] nebivoloL 10 mg tablet 2022-0 09-09 00:00: 00 Yes [id number] 10mg Take 1 tablet by mouth in the morning. [facility] metformin ER 500 mg 24 hr tablet 2022-0 09-09 00:00: 00 Yes [id number] 1000mg Take 2 tablets by mouth in the morning and 2 tablets in the evening. [facility] lisinopriL 40 mg tablet 2022-0 09-09 00:00: 00 Yes [id number] 40mg Take 1 tablet by mouth in the morning. [facility] nebivoloL 10 mg tablet 2022-0 09-09 00:00: 00 Yes [id number] 10mg Take 1 tablet by mouth in the morning. [facility] metformin ER 500 mg 24 hr tablet 2022-0 09-09 00:00: 00 Yes [id number] 1000mg Take 2 tablets by mouth in the morning and 2 tablets in the evening. [facility] nebivoloL 10 mg tablet 2022-0 09-09 00:00: 00 Yes [id number] 10mg Take 1 tablet by mouth in the morning. [facility] metformin ER 500 mg 24 hr tablet 2022-0 09-09 00:00: 00 Yes [id number] 1000mg Take 2 tablets by mouth in the morning and 2 tablets in the evening. [facility] nebivoloL 10 mg tablet 2022-0 09-09 00:00: 00 Yes [id number] 10mg Take 1 tablet by mouth in the morning. [facility] metformin ER 500 mg 24 hr tablet 3-0 09-09 00:00: 00 Yes [id number] 1000mg Take 2 tablets by mouth in the morning and 2 tablets in the evening. [facility] nebivoloL 10 mg tablet 3-0 09-09 00:00: 00 Yes [id number] 10mg Take 1 tablet by mouth in the morning. [facility] metformin ER 500 mg 24 hr tablet 2022-0 09-09 00:00: 00 Yes [id number] 1000mg Take 2 tablets by mouth in the morning and 2 tablets in the evening. [facility] nebivoloL 10 mg tablet 2022-0 09-09 00:00: 00 Yes [id number] 10mg Take 1 tablet by mouth in the morning. [facility] metformin ER 500 mg 24 hr tablet 2022-0 09-09 00:00: 00 Yes [id number] 1000mg Take 2 tablets by mouth in the morning and 2 tablets in the evening. [facility] nebivoloL 10 mg tablet 2022-0 09-09 00:00: 00 Yes [id number] 10mg Take 1 tablet by mouth in the morning. [facility] metformin ER 500 mg 24 hr tablet 2022-0 09-09 00:00: 00 Yes [id number] 1000mg Take 2 tablets by mouth in the morning and 2 tablets in the evening. [facility] nebivoloL 10 mg tablet 2022-0 09-09 00:00: 00 Yes [id number] 10mg Take 1 tablet by mouth in the morning. [facility] metformin ER 500 mg 24 hr tablet 2022-0 09-09 00:00: 00 Yes [id number] 1000mg Take 2 tablets by mouth in the morning and 2 tablets in the evening. [facility] nebivoloL 10 mg tablet 2022-0 09-09 00:00: 00 Yes [id number] 10mg Take 1 tablet by mouth in the morning. [facility] metformin ER 500 mg 24 hr tablet 2022-0 09-09 00:00: 00 Yes [id number] 1000mg Take 2 tablets by mouth in the morning and 2 tablets in the evening. [facility] nebivoloL 10 mg tablet 3-0 09-09 00:00: 00 Yes [id number] 10mg Take 1 tablet by mouth in the morning. [facility] metformin ER 500 mg 24 hr tablet 3-0 09-09 00:00: 00 Yes [id number] 1000mg Take 2 tablets by mouth in the morning and 2 tablets in the evening. [facility] nebivoloL 10 mg tablet 2022-0 09-09 00:00: 00 Yes [id number] 10mg Take 1 tablet by mouth in the morning. [facility] metformin ER 500 mg 24 hr tablet 2022-0 09-09 00:00: 00 Yes [id number] 1000mg Take 2 tablets by mouth in the morning and 2 tablets in the evening. [facility] nebivoloL 10 mg tablet 2022-0 09-09 00:00: 00 Yes [id number] 10mg Take 1 tablet by mouth in the morning. [facility] metformin ER 500 mg 24 hr tablet 2022-0 09-09 00:00: 00 Yes [id number] 1000mg Take 2 tablets by mouth in the morning and 2 tablets in the evening. [facility] nebivoloL 10 mg tablet 2022-0 09-09 00:00: 00 Yes [id number] 10mg Take 1 tablet by mouth in the morning. [facility] metformin ER 500 mg 24 hr tablet 2022-0 09-09 00:00: 00 Yes [id number] 1000mg Take 2 tablets by mouth in the morning and 2 tablets in the evening. [facility] nebivoloL 10 mg tablet 2022-0 09-09 00:00: 00 Yes [id number] 10mg Take 1 tablet by mouth in the morning. [facility] metformin ER 500 mg 24 hr tablet 2022-0 09-09 00:00: 00 Yes [id number] 1000mg Take 2 tablets by mouth in the morning and 2 tablets in the evening. [facility] nebivoloL 10 mg tablet 2022-0 09-09 00:00: 00 Yes [id number] 10mg Take 1 tablet by mouth in the morning. [facility] metformin ER 500 mg 24 hr tablet 2022-0 09-09 00:00: 00 Yes [id number] 1000mg Take 2 tablets by mouth in the morning and 2 tablets in the evening. [facility] nebivoloL 10 mg tablet 3-0 09-09 00:00: 00 Yes [id number] 10mg Take 1 tablet by mouth in the morning. [facility] metformin ER 500 mg 24 hr tablet 3-0 09-09 00:00: 00 Yes [id number] 1000mg Take 2 tablets by mouth in the morning and 2 tablets in the evening. [facility] nebivoloL 10 mg tablet 3-0 26 00:00: 00 Yes [id number] 10mg Take 1 tablet by mouth in the morning. [facility] metformin ER 500 mg 24 hr tablet 3-0 09-09 00:00: 00 Yes [id number] 1000mg Take 2 tablets by mouth in the morning and 2 tablets in the evening. [facility] nebivoloL 10 mg tablet 3-0 26 00:00: 00 Yes [id number] 10mg Take 1 tablet by mouth in the morning. [facility] metformin ER 500 mg 24 hr tablet 3-0 09-09 00:00: 00 Yes [id number] 1000mg Take 2 tablets by mouth in the morning and 2 tablets in the evening. [facility] nebivoloL 10 mg tablet 3-0 26 00:00: 00 Yes [id number] 10mg Take 1 tablet by mouth in the morning. [facility] metformin ER 500 mg 24 hr tablet 3-0 09-09 00:00: 00 Yes [id number] 1000mg Take 2 tablets by mouth in the morning and 2 tablets in the evening. [facility] nebivoloL 10 mg tablet 3-0 26 00:00: 00 Yes [id number] 10mg Take 1 tablet by mouth in the morning. [facility] metformin ER 500 mg 24 hr tablet 3-0 09-09 00:00: 00 Yes [id number] 1000mg Take 2 tablets by mouth in the morning and 2 tablets in the evening. [facility] nebivoloL 10 mg tablet 3-0 26 00:00: 00 Yes [id number] 10mg Take 1 tablet by mouth in the morning. [facility] metformin ER 500 mg 24 hr tablet 3-0 -26 00:00: 00 Yes [id number] 1000mg Take 2 tablets by mouth in the morning and 2 tablets in the evening. [facility] nebivoloL 10 mg tablet 3-0 -26 00:00: 00 Yes [id number] 10mg Take 1 tablet by mouth in the morning. [facility] metformin ER 500 mg 24 hr tablet 3-0 09-09 00:00: 00 Yes [id number] 1000mg Take 2 tablets by mouth in the morning and 2 tablets in the evening. [facility] nebivoloL 10 mg tablet 2022-0 09-09 00:00: 00 Yes [id number] 10mg Take 1 tablet by mouth in the morning. [facility] metformin ER 500 mg 24 hr tablet 2022-0 09-09 00:00: 00 Yes [id number] 1000mg Take 2 tablets by mouth in the morning and 2 tablets in the evening. [facility] nebivoloL 10 mg tablet 2022-0 09-09 00:00: 00 Yes [id number] 10mg Take 1 tablet by mouth in the morning. [facility] metformin ER 500 mg 24 hr tablet 2022-0 09-09 00:00: 00 Yes [id number] 1000mg Take 2 tablets by mouth in the morning and 2 tablets in the evening. [facility] nebivoloL 10 mg tablet 3-0 09-09 00:00: 00 Yes [id number] 10mg Take 1 tablet by mouth in the morning. [facility] metformin ER 500 mg 24 hr tablet 2022-0 09-09 00:00: 00 Yes [id number] 1000mg Take 2 tablets by mouth in the morning and 2 tablets in the evening. [facility] nebivoloL 10 mg tablet 2022-0 09-09 00:00: 00 Yes [id number] 10mg Take 1 tablet by mouth in the morning. [facility] metformin ER 500 mg 24 hr tablet 3-0 09-09 00:00: 00 Yes [id number] 1000mg Take 2 tablets by mouth in the morning and 2 tablets in the evening. [facility] nebivoloL 10 mg tablet 3-0 09-09 00:00: 00 Yes [id number] 10mg Take 1 tablet by mouth in the morning. [facility] metformin ER 500 mg 24 hr tablet 3-0 09-09 00:00: 00 Yes [id number] 1000mg Take 2 tablets by mouth in the morning and 2 tablets in the evening. [facility] nebivoloL 10 mg tablet 3-0 09-09 00:00: 00 Yes [id number] 10mg Take 1 tablet by mouth in the morning. [facility] metformin ER 500 mg 24 hr tablet 2022-0 09-09 00:00: 00 Yes [id number] 1000mg Take 2 tablets by mouth in the morning and 2 tablets in the evening. [facility] nebivoloL 10 mg tablet 3-0 09-09 00:00: 00 Yes [id number] 10mg Take 1 tablet by mouth in the morning. [facility] metformin ER 500 mg 24 hr tablet 2022-0 09-09 00:00: 00 Yes [id number] 1000mg Take 2 tablets by mouth in the morning and 2 tablets in the evening. [facility] nebivoloL 10 mg tablet 2022-0 09-09 00:00: 00 Yes [id number] 10mg Take 1 tablet by mouth in the morning. [facility] metformin ER 500 mg 24 hr tablet 3-0 09-09 00:00: 00 Yes [id number] 1000mg Take 2 tablets by mouth in the morning and 2 tablets in the evening. [facility] nebivoloL 10 mg tablet 2022-0 09-09 00:00: 00 Yes [id number] 10mg Take 1 tablet by mouth in the morning. [facility] metformin ER 500 mg 24 hr tablet 2022-0 09-09 00:00: 00 Yes [id number] 1000mg Take 2 tablets by mouth in the morning and 2 tablets in the evening. [facility] nebivoloL 10 mg tablet 3-0 09-09 00:00: 00 Yes [id number] 10mg Take 1 tablet by mouth in the morning. [facility] metformin ER 500 mg 24 hr tablet 2022-0 09-09 00:00: 00 Yes [id number] 1000mg Take 2 tablets by mouth in the morning and 2 tablets in the evening. [facility] nebivoloL 10 mg tablet 3-0 09-09 00:00: 00 Yes [id number] 10mg Take 1 tablet by mouth in the morning. [facility] nebivoloL 10 mg tablet 3-0 09-09 00:00: 00 Yes [id number] 10mg Take 1 tablet by mouth in the morning. [facility] nebivoloL 10 mg tablet 0 09-09 00:00: 00 Yes [id number] 10mg Take 1 tablet by mouth in the morning. [facility] nebivoloL 10 mg tablet 0 09-09 00:00: 00 Yes [id number] 10mg Take 1 tablet by mouth in the morning. [facility] nebivoloL 10 mg tablet 09-09 00:00: 00 Yes [id number] 10mg Take 1 tablet by mouth in the morning. [facility] nebivoloL 10 mg tablet 09-09 00:00: 00 03-29 00:00 :00 No [id number] 10mg Take 1 tablet by mouth in the morning. [facility] metformin ER 500 mg 24 hr tablet 09-09 00:00: 00 03-17 00:00 :00 No [id number] 1000mg Take 2 tablets by mouth in the morning and 2 tablets in the evening. [facility] metformin ER 500 mg 24 hr tablet 09-09 00:00: 00 03-17 00:00 :00 No [id number] 1000mg Take 2 tablets by mouth in the morning and 2 tablets in the evening. [facility] metformin ER 500 mg 24 hr tablet 09-09 00:00: 00 03-17 00:00 :00 No [id number] 1000mg Take 2 tablets by mouth in the morning and 2 tablets in the evening. [facility] lisinopriL 40 mg tablet 0 09-09 00:00: 00 11-26 00:00 :00 No [id number] 40mg Take 1 tablet by mouth in the morning. [facility] lisinopriL 40 mg tablet 0 09-09 00:00: 00 11-26 00:00 :00 No [id number] 40mg Take 1 tablet by mouth in the morning. [facility] lisinopriL 40 mg tablet 2022-0 09-09 00:00: 00 11-26 00:00 :00 No [id number] 40mg Take 1 tablet by mouth in the morning. [facility] lisinopriL 40 mg tablet 0 26 00:00: 00 11-26 00:00 :00 No [id number] 40mg Take 1 tablet by mouth in the morning. [facility] allopurinoL 100 mg tablet 0 09-09 00:00: 00 09-17 00:00 :00 No [id number] 200mg Take 2 tablets by mouth in the morning. [facility] BASAGLAR KWIKPEN U-100 INSULIN 100 unit/mL (3 mL) injection 15 00:00: 00 Yes 45U inject 45 Units under the skin in the morning. [facility] BASAGLAR KWIKPEN U-100 INSULIN 100 unit/mL (3 mL) injection 0 15 00:00: 00 Yes 45U inject 45 Units under the skin in the morning. [facility] BASAGLAR KWIKPEN U-100 INSULIN 100 unit/mL (3 mL) injection 15 00:00: 00 10-21 00:00 :00 No 45U inject 45 Units under the skin in the morning. [facility] LISINOPRIL 40 mg tablet 0 12 00:00: 00 Yes [id number] TAKE ONE TABLET BY MOUTH DAILY [facility] LISINOPRIL 40 mg tablet 2022-0 12 00:00: 00 Yes [id number] TAKE ONE TABLET BY MOUTH DAILY [facility] LISINOPRIL 40 mg tablet 2022-0 4-12 00:00: 00 Yes [id number] TAKE ONE TABLET BY MOUTH DAILY [facility] LISINOPRIL 40 mg tablet 2022-0 4-12 00:00: 00 Yes [id number] TAKE ONE TABLET BY MOUTH DAILY [facility] LISINOPRIL 40 mg tablet 2022-0 4-12 00:00: 00 09-09 00:00 :00 No [id number] TAKE ONE TABLET BY MOUTH DAILY [facility] LISINOPRIL 40 mg tablet 2022-0 4-12 00:00: 00 09-09 00:00 :00 No [id number] TAKE ONE TABLET BY MOUTH DAILY [facility] NEBIVOLOL 10 mg tablet 0 08-21 00:00: 00 Yes [id number] TAKE ONE TABLET BY MOUTH DAILY [facility] NEBIVOLOL 10 mg tablet 0 08-21 00:00: 00 Yes [id number] TAKE ONE TABLET BY MOUTH DAILY [facility] NEBIVOLOL 10 mg tablet 0 08-21 00:00: 00 Yes [id number] TAKE ONE TABLET BY MOUTH DAILY [facility] NEBIVOLOL 10 mg tablet 2022-0 08-21 00:00: 00 Yes [id number] TAKE ONE TABLET BY MOUTH DAILY [facility] NEBIVOLOL 10 mg tablet 0 08-21 00:00: 00 Yes [id number] TAKE ONE TABLET BY MOUTH DAILY [facility] NEBIVOLOL 10 mg tablet 0 08-21 00:00: 00 09-09 00:00 :00 No [id number] TAKE ONE TABLET BY MOUTH DAILY [facility] NEBIVOLOL 10 mg tablet 0 08-21 00:00: 00 09-09 00:00 :00 No [id number] TAKE ONE TABLET BY MOUTH DAILY [facility] ALLOPURINOL 100 mg tablet 2022-0 08-18 00:00: 00 Yes [id number] TAKE TWO TABLETS BY MOUTH EVERY MORNING [facility] ALLOPURINOL 100 mg tablet 2022-0 08-18 00:00: 00 Yes [id number] TAKE TWO TABLETS BY MOUTH EVERY MORNING [facility] ALLOPURINOL 100 mg tablet 2022-0 08-18 00:00: 00 Yes [id number] TAKE TWO TABLETS BY MOUTH EVERY MORNING [facility] ALLOPURINOL 100 mg tablet 2022-0 08-18 00:00: 00 Yes [id number] TAKE TWO TABLETS BY MOUTH EVERY MORNING [facility] ALLOPURINOL 100 mg tablet 2022-0 08-18 00:00: 00 Yes [id number] TAKE TWO TABLETS BY MOUTH EVERY MORNING [facility] ALLOPURINOL 100 mg tablet 2022-0 08-18 00:00: 00 Yes [id number] TAKE TWO TABLETS BY MOUTH EVERY MORNING [facility] ALLOPURINOL 100 mg tablet 2022-0 08-18 00:00: 00 09-09 00:00 :00 No [id number] TAKE TWO TABLETS BY MOUTH EVERY MORNING [facility] ALLOPURINOL 100 mg tablet 2022-0 08-18 00:00: 00 09-09 00:00 :00 No [id number] TAKE TWO TABLETS BY MOUTH EVERY MORNING [facility] fluorouraci L 5 % cream 2022-0 08-07 00:00: 00 Yes [facility] fluorouraci L 5 % cream 2022-0 08-07 00:00: 00 Yes [facility] fluorouraci L 5 % cream 2022-0 08-07 00:00: 00 Yes [facility] fluorouraci L 5 % cream 2022-0 08-07 00:00: 00 Yes [facility] fluorouraci L 5 % cream 2022-0 08-07 00:00: 00 Yes [facility] fluorouraci L 5 % cream 2022-0 08-07 00:00: 00 Yes [facility] fluorouraci L 5 % cream 2022-0 08-07 00:00: 00 Yes [facility] fluorouraci L 5 % cream 2022-0 08-07 00:00: 00 Yes [facility] fluorouraci L 5 % cream 2022-0 08-07 00:00: 00 Yes [facility] fluorouraci L 5 % cream 2022-0 08-07 00:00: 00 Yes [facility] fluorouraci L 5 % cream 3-0 24 00:00: 00 Yes [facility] fluorouraci L 5 % cream 2022-0 24 00:00: 00 Yes [facility] fluorouraci L 5 % cream 2022-0 24 00:00: 00 Yes [facility] fluorouraci L 5 % cream 2022-0 24 00:00: 00 Yes [facility] fluorouraci L 5 % cream 3-0 3-24 00:00: 00 Yes [facility] fluorouraci L 5 % cream 2023-0 3 00:00: 00 Yes [facility] fluorouraci L 5 % cream 3-0 324 00:00: 00 Yes [facility] fluorouraci L 5 % cream 2023-0 324 00:00: 00 Yes [facility] fluorouraci L 5 % cream 3-0 324 00:00: 00 Yes [facility] fluorouraci L 5 % cream 2023-0 3 00:00: 00 Yes [facility] fluorouraci L 5 % cream 2023-0 24 00:00: 00 Yes [facility] fluorouraci L 5 % cream 3-0 324 00:00: 00 Yes [facility] fluorouraci L 5 % cream 3-0 324 00:00: 00 Yes [facility] fluorouraci L 5 % cream 3-0 08-07 00:00: 00 Yes [facility] fluorouraci L 5 % cream 3-0 24 00:00: 00 Yes [facility] fluorouraci L 5 % cream 3-0 24 00:00: 00 Yes [facility] fluorouraci L 5 % cream 2023-0 24 00:00: 00 Yes [facility] fluorouraci L 5 % cream 3-0 324 00:00: 00 Yes [facility] fluorouraci L 5 % cream 2023-0 324 00:00: 00 Yes [facility] fluorouraci L 5 % cream 2023-0 324 00:00: 00 Yes [facility] fluorouraci L 5 % cream 2023-0 324 00:00: 00 Yes [facility] fluorouraci L 5 % cream 2023-0 324 00:00: 00 Yes [facility] fluorouraci L 5 % cream 2023-0 324 00:00: 00 Yes [facility] fluorouraci L 5 % cream 2023-0 3 00:00: 00 Yes [facility] fluorouraci L 5 % cream 3-0 3 00:00: 00 Yes [facility] fluorouraci L 5 % cream 3-0 08-07 00:00: 00 Yes [facility] fluorouraci L 5 % cream 3-0 3 00:00: 00 Yes [facility] fluorouraci L 5 % cream 3-0 3 00:00: 00 Yes [facility] fluorouraci L 5 % cream 3-0 3 00:00: 00 Yes [facility] fluorouraci L 5 % cream 3-0 08-07 00:00: 00 Yes [facility] fluorouraci L 5 % cream 3-0 08-07 00:00: 00 Yes [facility] fluorouraci L 5 % cream 3-0 3 00:00: 00 Yes [facility] fluorouraci L 5 % cream 3-0 08-07 00:00: 00 Yes [facility] fluorouraci L 5 % cream 3-0 08-07 00:00: 00 Yes [facility] fluorouraci L 5 % cream 3-0 08-07 00:00: 00 Yes [facility] fluorouraci L 5 % cream 3-0 324 00:00: 00 Yes [facility] fluorouraci L 5 % cream 2023-0 324 00:00: 00 Yes [facility] fluorouraci L 5 % cream 3-0 324 00:00: 00 Yes [facility] fluorouraci L 5 % cream 3-0 324 00:00: 00 Yes [facility] fluorouraci L 5 % cream 3-0 324 00:00: 00 Yes [facility] fluorouraci L 5 % cream 2023-0 324 00:00: 00 Yes [facility] fluorouraci L 5 % cream 2023-0 3-24 00:00: 00 Yes [facility] fluorouraci L 5 % cream 3-0 08-07 00:00: 00 Yes [facility] fluorouraci L 5 % cream 2022-0 08-07 00:00: 00 Yes [facility] fluorouraci L 5 % cream 3-0 08-07 00:00: 00 Yes [facility] fluorouraci L 5 % cream 2022-0 08-07 00:00: 00 Yes [facility] fluorouraci L 5 % cream 3-0 08-07 00:00: 00 Yes [facility] fluorouraci L 5 % cream 3-0 24 00:00: 00 Yes [facility] fluorouraci L 5 % cream 2022-0 24 00:00: 00 Yes [facility] fluorouraci L 5 % cream 2022-0 24 00:00: 00 Yes [facility] fluorouraci L 5 % cream 2022-0 08-07 00:00: 00 Yes [facility] fluorouraci L 5 % cream 3-0 24 00:00: 00 Yes [facility] fluorouraci L 5 % cream 2022-0 24 00:00: 00 Yes [facility] fluorouraci L 5 % cream 3-0 24 00:00: 00 Yes [facility] fluorouraci L 5 % cream 2022-0 24 00:00: 00 Yes [facility] fluorouraci L 5 % cream 2022-0 24 00:00: 00 Yes [facility] fluorouraci L 5 % cream 2022-0 24 00:00: 00 Yes [facility] insulin regular human (HUMULIN R) injection 12 Units 08-02 01:15: 00 08-02 00:38 :00 No 12U 12 Units, Slow IV Push, ONCE, 1 dose, On 08/01/22 at 2014, Routine
Indicatio n for insulin: Hyperglyce hank [facility] magnesium sulfate in water 2 gram/50 mL (4 %) infusion 2 g 08-02 01:15: 00 08-02 01:39 :00 No 2g 2 g, IV Piggyback, Administer over 60 Minutes, ONCE, 1 dose, On 08/01/22 at 2015, Routine [facility] NaCl 0.9% (NS) bolus infusion 1,000 mL 08-02 00:00: 00 08-02 00:39 :00 No 1000mL at 999 mL/hr, 1,000 mL, IV Infusion, ONCE, 1 dose, On 08/01/22 at 1900, HARPREET [facility] iopamidol (ISOVUE 370-500 mL) injection 89 mL 08-01 23:48: 00 08-02 00:00 :00 No [id number] 89mL 89 mL, Intravenou s, ONCE, 1 dose, On 08/01/22 at 1900, Routine [facility] OZEMPIC 1 mg/dose (4 mg/3 mL) PnIj 2023-0 3-17 00:00: 00 Yes [facility] OZEMPIC 1 mg/dose (4 mg/3 mL) PnIj 2023-0 3-17 00:00: 00 Yes [facility] OZEMPIC 1 mg/dose (4 mg/3 mL) PnIj 2023-0 3-17 00:00: 00 Yes [facility] OZEMPIC 1 mg/dose (4 mg/3 mL) PnIj 2023-0 3-17 00:00: 00 Yes [facility] OZEMPIC 1 mg/dose (4 mg/3 mL) PnIj 2023-0 3-17 00:00: 00 Yes [facility] OZEMPIC 1 mg/dose (4 mg/3 mL) PnIj 2023-0 3-17 00:00: 00 Yes [facility] OZEMPIC 1 mg/dose (4 mg/3 mL) PnIj 2023-0 3-17 00:00: 00 Yes [facility] OZEMPIC 1 mg/dose (4 mg/3 mL) PnIj 2023-0 3-17 00:00: 00 11-18 00:00 :00 No [facility] OZEMPIC 1 mg/dose (4 mg/3 mL) PnIj 07-31 00:00: 00 11-18 00:00 :00 No [facility] NEBIVOLOL 10 mg tablet 07-21 00:00: 00 Yes [id number] TAKE ONE TABLET BY MOUTH DAILY [facility] NEBIVOLOL 10 mg tablet 07-21 00:00: 00 Yes [id number] TAKE ONE TABLET BY MOUTH DAILY [facility] NEBIVOLOL 10 mg tablet 07-21 00:00: 00 Yes [id number] TAKE ONE TABLET BY MOUTH DAILY [facility] NEBIVOLOL 10 mg tablet 07-21 00:00: 00 Yes [id number] TAKE ONE TABLET BY MOUTH DAILY [facility] NEBIVOLOL 10 mg tablet 07-21 00:00: 00 Yes [id number] TAKE ONE TABLET BY MOUTH DAILY [facility] NEBIVOLOL 10 mg tablet 07-21 00:00: 00 Yes [id number] TAKE ONE TABLET BY MOUTH DAILY [facility] NEBIVOLOL 10 mg tablet 07-21 00:00: 00 08-21 00:00 :00 No [id number] TAKE ONE TABLET BY MOUTH DAILY [facility] insulin degludec (TRESIBA FLEXTOUCH U-200) 200 unit/mL (3 mL) InPn 07-16 00:00: 00 Yes [id number] 80U inject 80 Units under the skin in the morning and 80 Units in the evening. [facility] atorvastati n 40 mg tablet 07-16 00:00: 00 Yes [id number] 40mg Take 1 tablet by mouth at bedtime. [facility] amLODIPine 10 mg tablet 07-16 00:00: 00 Yes [id number] 10mg Take 1 tablet by mouth in the morning. [facility] allopurinoL 100 mg tablet 07-16 00:00: 00 Yes [id number] 200mg Take 2 tablets by mouth in the morning. [facility] insulin aspart U-100 (NOVOLOG FLEXPEN U-100 INSULIN) 100 unit/mL (3 mL) injection 07-16 00:00: 00 Yes [id number] 10U inject 10 Units under the skin in the morning and 10 Units at noon and 10 Units in the evening. inject before meals. [facility] insulin degludec (TRESIBA FLEXTOUCH U-200) 200 unit/mL (3 mL) In 07-16 00:00: 00 Yes [id number] 80U inject 80 Units under the skin in the morning and 80 Units in the evening. [facility] atorvastati n 40 mg tablet 07-16 00:00: 00 Yes [id number] 40mg Take 1 tablet by mouth at bedtime. [facility] amLODIPine 10 mg tablet 07-16 00:00: 00 Yes [id number] 10mg Take 1 tablet by mouth in the morning. [facility] allopurinoL 100 mg tablet 07-16 00:00: 00 Yes [id number] 200mg Take 2 tablets by mouth in the morning. [facility] insulin aspart U-100 (NOVOLOG FLEXPEN U-100 INSULIN) 100 unit/mL (3 mL) injection 07-16 00:00: 00 Yes [id number] 10U inject 10 Units under the skin in the morning and 10 Units at noon and 10 Units in the evening. inject before meals. [facility] insulin degludec (TRESIBA FLEXTOUCH U-200) 200 unit/mL (3 mL) In 07-16 00:00: 00 Yes [id number] 80U inject 80 Units under the skin in the morning and 80 Units in the evening. [facility] atorvastati n 40 mg tablet 07-16 00:00: 00 Yes [id number] 40mg Take 1 tablet by mouth at bedtime. [facility] amLODIPine 10 mg tablet 07-16 00:00: 00 Yes [id number] 10mg Take 1 tablet by mouth in the morning. [facility] allopurinoL 100 mg tablet 07-16 00:00: 00 Yes [id number] 200mg Take 2 tablets by mouth in the morning. [facility] insulin aspart U-100 (NOVOLOG FLEXPEN U-100 INSULIN) 100 unit/mL (3 mL) injection 07-16 00:00: 00 Yes [id number] 10U inject 10 Units under the skin in the morning and 10 Units at noon and 10 Units in the evening. inject before meals. [facility] insulin degludec (TRESIBA FLEXTOUCH U-200) 200 unit/mL (3 mL) In 07-16 00:00: 00 Yes [id number] 80U inject 80 Units under the skin in the morning and 80 Units in the evening. [facility] atorvastati n 40 mg tablet 07-16 00:00: 00 Yes [id number] 40mg Take 1 tablet by mouth at bedtime. [facility] amLODIPine 10 mg tablet 07-16 00:00: 00 Yes [id number] 10mg Take 1 tablet by mouth in the morning. [facility] allopurinoL 100 mg tablet 07-16 00:00: 00 Yes [id number] 200mg Take 2 tablets by mouth in the morning. [facility] insulin aspart U-100 (NOVOLOG FLEXPEN U-100 INSULIN) 100 unit/mL (3 mL) injection 07-16 00:00: 00 Yes [id number] 10U inject 10 Units under the skin in the morning and 10 Units at noon and 10 Units in the evening. inject before meals. [facility] insulin degludec (TRESIBA FLEXTOUCH U-200) 200 unit/mL (3 mL) In 07-16 00:00: 00 Yes [id number] 80U inject 80 Units under the skin in the morning and 80 Units in the evening. [facility] atorvastati n 40 mg tablet 07-16 00:00: 00 Yes [id number] 40mg Take 1 tablet by mouth at bedtime. [facility] amLODIPine 10 mg tablet 07-16 00:00: 00 Yes [id number] 10mg Take 1 tablet by mouth in the morning. [facility] allopurinoL 100 mg tablet 07-16 00:00: 00 Yes [id number] 200mg Take 2 tablets by mouth in the morning. [facility] insulin aspart U-100 (NOVOLOG FLEXPEN U-100 INSULIN) 100 unit/mL (3 mL) injection 07-16 00:00: 00 Yes [id number] 10U inject 10 Units under the skin in the morning and 10 Units at noon and 10 Units in the evening. inject before meals. [facility] insulin degludec (TRESIBA FLEXTOUCH U-200) 200 unit/mL (3 mL) In 07-16 00:00: 00 Yes [id number] 80U inject 80 Units under the skin in the morning and 80 Units in the evening. [facility] atorvastati n 40 mg tablet 07-16 00:00: 00 Yes [id number] 40mg Take 1 tablet by mouth at bedtime. [facility] amLODIPine 10 mg tablet 07-16 00:00: 00 Yes [id number] 10mg Take 1 tablet by mouth in the morning. [facility] allopurinoL 100 mg tablet 07-16 00:00: 00 Yes [id number] 200mg Take 2 tablets by mouth in the morning. [facility] insulin aspart U-100 (NOVOLOG FLEXPEN U-100 INSULIN) 100 unit/mL (3 mL) injection 07-16 00:00: 00 Yes [id number] 10U inject 10 Units under the skin in the morning and 10 Units at noon and 10 Units in the evening. inject before meals. [facility] insulin degludec (TRESIBA FLEXTOUCH U-200) 200 unit/mL (3 mL) In 07-16 00:00: 00 Yes [id number] 80U inject 80 Units under the skin in the morning and 80 Units in the evening. [facility] atorvastati n 40 mg tablet 07-16 00:00: 00 Yes [id number] 40mg Take 1 tablet by mouth at bedtime. [facility] amLODIPine 10 mg tablet 07-16 00:00: 00 Yes [id number] 10mg Take 1 tablet by mouth in the morning. [facility] allopurinoL 100 mg tablet 07-16 00:00: 00 Yes [id number] 200mg Take 2 tablets by mouth in the morning. [facility] insulin aspart U-100 (NOVOLOG FLEXPEN U-100 INSULIN) 100 unit/mL (3 mL) injection 07-16 00:00: 00 Yes [id number] 10U inject 10 Units under the skin in the morning and 10 Units at noon and 10 Units in the evening. inject before meals. [facility] insulin degludec (TRESIBA FLEXTOUCH U-200) 200 unit/mL (3 mL) In 07-16 00:00: 00 Yes [id number] 80U inject 80 Units under the skin in the morning and 80 Units in the evening. [facility] atorvastati n 40 mg tablet 07-16 00:00: 00 Yes [id number] 40mg Take 1 tablet by mouth at bedtime. [facility] amLODIPine 10 mg tablet 07-16 00:00: 00 Yes [id number] 10mg Take 1 tablet by mouth in the morning. [facility] insulin aspart U-100 (NOVOLOG FLEXPEN U-100 INSULIN) 100 unit/mL (3 mL) injection 07-16 00:00: 00 Yes [id number] 10U inject 10 Units under the skin in the morning and 10 Units at noon and 10 Units in the evening. inject before meals. [facility] insulin degludec (TRESIBA FLEXTOUCH U-200) 200 unit/mL (3 mL) In 07-16 00:00: 00 Yes [id number] 80U inject 80 Units under the skin in the morning and 80 Units in the evening. [facility] atorvastati n 40 mg tablet 07-16 00:00: 00 Yes [id number] 40mg Take 1 tablet by mouth at bedtime. [facility] amLODIPine 10 mg tablet 07-16 00:00: 00 Yes [id number] 10mg Take 1 tablet by mouth in the morning. [facility] insulin aspart U-100 (NOVOLOG FLEXPEN U-100 INSULIN) 100 unit/mL (3 mL) injection 07-16 00:00: 00 Yes [id number] 10U inject 10 Units under the skin in the morning and 10 Units at noon and 10 Units in the evening. inject before meals. [facility] insulin degludec (TRESIBA FLEXTOUCH U-200) 200 unit/mL (3 mL) In 07-16 00:00: 00 Yes [id number] 80U inject 80 Units under the skin in the morning and 80 Units in the evening. [facility] atorvastati n 40 mg tablet 07-16 00:00: 00 Yes [id number] 40mg Take 1 tablet by mouth at bedtime. [facility] amLODIPine 10 mg tablet 07-16 00:00: 00 Yes [id number] 10mg Take 1 tablet by mouth in the morning. [facility] insulin aspart U-100 (NOVOLOG FLEXPEN U-100 INSULIN) 100 unit/mL (3 mL) injection 07-16 00:00: 00 Yes [id number] 10U inject 10 Units under the skin in the morning and 10 Units at noon and 10 Units in the evening. inject before meals. [facility] insulin degludec (TRESIBA FLEXTOUCH U-200) 200 unit/mL (3 mL) In 07-16 00:00: 00 Yes [id number] 80U inject 80 Units under the skin in the morning and 80 Units in the evening. [facility] atorvastati n 40 mg tablet 07-16 00:00: 00 Yes [id number] 40mg Take 1 tablet by mouth at bedtime. [facility] amLODIPine 10 mg tablet 07-16 00:00: 00 Yes [id number] 10mg Take 1 tablet by mouth in the morning. [facility] insulin aspart U-100 (NOVOLOG FLEXPEN U-100 INSULIN) 100 unit/mL (3 mL) injection 07-16 00:00: 00 Yes [id number] 10U inject 10 Units under the skin in the morning and 10 Units at noon and 10 Units in the evening. inject before meals. [facility] insulin degludec (TRESIBA FLEXTOUCH U-200) 200 unit/mL (3 mL) In 07-16 00:00: 00 Yes [id number] 80U inject 80 Units under the skin in the morning and 80 Units in the evening. [facility] atorvastati n 40 mg tablet 07-16 00:00: 00 Yes [id number] 40mg Take 1 tablet by mouth at bedtime. [facility] amLODIPine 10 mg tablet 07-16 00:00: 00 Yes [id number] 10mg Take 1 tablet by mouth in the morning. [facility] insulin aspart U-100 (NOVOLOG FLEXPEN U-100 INSULIN) 100 unit/mL (3 mL) injection 07-16 00:00: 00 Yes [id number] 10U inject 10 Units under the skin in the morning and 10 Units at noon and 10 Units in the evening. inject before meals. [facility] insulin degludec (TRESIBA FLEXTOUCH U-200) 200 unit/mL (3 mL) [facility] 07-16 00:00: 00 Yes [id number] 80U inject 80 Units under the skin in the morning and 80 Units in the evening. [facility] atorvastati n 40 mg tablet 07-16 00:00: 00 Yes [id number] 40mg Take 1 tablet by mouth at bedtime. [facility] amLODIPine 10 mg tablet 07-16 00:00: 00 Yes [id number] 10mg Take 1 tablet by mouth in the morning. [facility] insulin aspart U-100 (NOVOLOG FLEXPEN U-100 INSULIN) 100 unit/mL (3 mL) injection 07-16 00:00: 00 Yes [id number] 10U inject 10 Units under the skin in the morning and 10 Units at noon and 10 Units in the evening. inject before meals. [facility] insulin degludec (TRESIBA FLEXTOUCH U-200) 200 unit/mL (3 mL) In 07-16 00:00: 00 Yes [id number] 80U inject 80 Units under the skin in the morning and 80 Units in the evening. [facility] atorvastati n 40 mg tablet 07-16 00:00: 00 Yes [id number] 40mg Take 1 tablet by mouth at bedtime. [facility] amLODIPine 10 mg tablet 07-16 00:00: 00 Yes [id number] 10mg Take 1 tablet by mouth in the morning. [facility] insulin aspart U-100 (NOVOLOG FLEXPEN U-100 INSULIN) 100 unit/mL (3 mL) injection 07-16 00:00: 00 Yes [id number] 10U inject 10 Units under the skin in the morning and 10 Units at noon and 10 Units in the evening. inject before meals. [facility] insulin degludec (TRESIBA FLEXTOUCH U-200) 200 unit/mL (3 mL) In 07-16 00:00: 00 Yes [id number] 80U inject 80 Units under the skin in the morning and 80 Units in the evening. [facility] atorvastati n 40 mg tablet 07-16 00:00: 00 Yes [id number] 40mg Take 1 tablet by mouth at bedtime. [facility] amLODIPine 10 mg tablet 07-16 00:00: 00 Yes [id number] 10mg Take 1 tablet by mouth in the morning. [facility] insulin aspart U-100 (NOVOLOG FLEXPEN U-100 INSULIN) 100 unit/mL (3 mL) injection 07-16 00:00: 00 Yes [id number] 10U inject 10 Units under the skin in the morning and 10 Units at noon and 10 Units in the evening. inject before meals. [facility] insulin degludec (TRESIBA FLEXTOUCH U-200) 200 unit/mL (3 mL) In 07-16 00:00: 00 Yes [id number] 80U inject 80 Units under the skin in the morning and 80 Units in the evening. [facility] atorvastati n 40 mg tablet 07-16 00:00: 00 Yes [id number] 40mg Take 1 tablet by mouth at bedtime. [facility] amLODIPine 10 mg tablet 07-16 00:00: 00 Yes [id number] 10mg Take 1 tablet by mouth in the morning. [facility] insulin aspart U-100 (NOVOLOG FLEXPEN U-100 INSULIN) 100 unit/mL (3 mL) injection 07-16 00:00: 00 Yes [id number] 10U inject 10 Units under the skin in the morning and 10 Units at noon and 10 Units in the evening. inject before meals. [facility] insulin degludec (TRESIBA FLEXTOUCH U-200) 200 unit/mL (3 mL) [facility] 07-16 00:00: 00 Yes [id number] 80U inject 80 Units under the skin in the morning and 80 Units in the evening. [facility] atorvastati n 40 mg tablet 07-16 00:00: 00 Yes [id number] 40mg Take 1 tablet by mouth at bedtime. [facility] amLODIPine 10 mg tablet 07-16 00:00: 00 Yes [id number] 10mg Take 1 tablet by mouth in the morning. [facility] insulin aspart U-100 (NOVOLOG FLEXPEN U-100 INSULIN) 100 unit/mL (3 mL) injection 07-16 00:00: 00 Yes [id number] 10U inject 10 Units under the skin in the morning and 10 Units at noon and 10 Units in the evening. inject before meals. [facility] insulin degludec (TRESIBA FLEXTOUCH U-200) 200 unit/mL (3 mL) In 07-16 00:00: 00 Yes [id number] 80U inject 80 Units under the skin in the morning and 80 Units in the evening. [facility] atorvastati n 40 mg tablet 07-16 00:00: 00 Yes [id number] 40mg Take 1 tablet by mouth at bedtime. [facility] amLODIPine 10 mg tablet 07-16 00:00: 00 Yes [id number] 10mg Take 1 tablet by mouth in the morning. [facility] insulin aspart U-100 (NOVOLOG FLEXPEN U-100 INSULIN) 100 unit/mL (3 mL) injection 07-16 00:00: 00 Yes [id number] 10U inject 10 Units under the skin in the morning and 10 Units at noon and 10 Units in the evening. inject before meals. [facility] insulin degludec (TRESIBA FLEXTOUCH U-200) 200 unit/mL (3 mL) In 07-16 00:00: 00 Yes [id number] 80U inject 80 Units under the skin in the morning and 80 Units in the evening. [facility] atorvastati n 40 mg tablet 07-16 00:00: 00 Yes [id number] 40mg Take 1 tablet by mouth at bedtime. [facility] amLODIPine 10 mg tablet 07-16 00:00: 00 Yes [id number] 10mg Take 1 tablet by mouth in the morning. [facility] insulin aspart U-100 (NOVOLOG FLEXPEN U-100 INSULIN) 100 unit/mL (3 mL) injection 07-16 00:00: 00 Yes [id number] 10U inject 10 Units under the skin in the morning and 10 Units at noon and 10 Units in the evening. inject before meals. [facility] insulin degludec (TRESIBA FLEXTOUCH U-200) 200 unit/mL (3 mL) In 07-16 00:00: 00 Yes [id number] 80U inject 80 Units under the skin in the morning and 80 Units in the evening. [facility] atorvastati n 40 mg tablet 07-16 00:00: 00 Yes [id number] 40mg Take 1 tablet by mouth at bedtime. [facility] amLODIPine 10 mg tablet 07-16 00:00: 00 Yes [id number] 10mg Take 1 tablet by mouth in the morning. [facility] insulin aspart U-100 (NOVOLOG FLEXPEN U-100 INSULIN) 100 unit/mL (3 mL) injection 07-16 00:00: 00 Yes [id number] 10U inject 10 Units under the skin in the morning and 10 Units at noon and 10 Units in the evening. inject before meals. [facility] insulin degludec (TRESIBA FLEXTOUCH U-200) 200 unit/mL (3 mL) In 07-16 00:00: 00 Yes [id number] 80U inject 80 Units under the skin in the morning and 80 Units in the evening. [facility] atorvastati n 40 mg tablet 07-16 00:00: 00 Yes [id number] 40mg Take 1 tablet by mouth at bedtime. [facility] amLODIPine 10 mg tablet 07-16 00:00: 00 Yes [id number] 10mg Take 1 tablet by mouth in the morning. [facility] insulin aspart U-100 (NOVOLOG FLEXPEN U-100 INSULIN) 100 unit/mL (3 mL) injection 07-16 00:00: 00 Yes [id number] 10U inject 10 Units under the skin in the morning and 10 Units at noon and 10 Units in the evening. inject before meals. [facility] insulin degludec (TRESIBA FLEXTOUCH U-200) 200 unit/mL (3 mL) [facility] 07-16 00:00: 00 Yes [id number] 80U inject 80 Units under the skin in the morning and 80 Units in the evening. [facility] atorvastati n 40 mg tablet 07-16 00:00: 00 Yes [id number] 40mg Take 1 tablet by mouth at bedtime. [facility] amLODIPine 10 mg tablet 07-16 00:00: 00 Yes [id number] 10mg Take 1 tablet by mouth in the morning. [facility] insulin aspart U-100 (NOVOLOG FLEXPEN U-100 INSULIN) 100 unit/mL (3 mL) injection 07-16 00:00: 00 Yes [id number] 10U inject 10 Units under the skin in the morning and 10 Units at noon and 10 Units in the evening. inject before meals. [facility] insulin degludec (TRESIBA FLEXTOUCH U-200) 200 unit/mL (3 mL) In 07-16 00:00: 00 Yes [id number] 80U inject 80 Units under the skin in the morning and 80 Units in the evening. [facility] atorvastati n 40 mg tablet 07-16 00:00: 00 Yes [id number] 40mg Take 1 tablet by mouth at bedtime. [facility] amLODIPine 10 mg tablet 07-16 00:00: 00 Yes [id number] 10mg Take 1 tablet by mouth in the morning. [facility] insulin aspart U-100 (NOVOLOG FLEXPEN U-100 INSULIN) 100 unit/mL (3 mL) injection 07-16 00:00: 00 Yes [id number] 10U inject 10 Units under the skin in the morning and 10 Units at noon and 10 Units in the evening. inject before meals. [facility] insulin degludec (TRESIBA FLEXTOUCH U-200) 200 unit/mL (3 mL) [facility] 07-16 00:00: 00 Yes [id number] 80U inject 80 Units under the skin in the morning and 80 Units in the evening. [facility] atorvastati n 40 mg tablet 07-16 00:00: 00 Yes [id number] 40mg Take 1 tablet by mouth at bedtime. [facility] amLODIPine 10 mg tablet 07-16 00:00: 00 Yes [id number] 10mg Take 1 tablet by mouth in the morning. [facility] insulin aspart U-100 (NOVOLOG FLEXPEN U-100 INSULIN) 100 unit/mL (3 mL) injection 07-16 00:00: 00 Yes [id number] 10U inject 10 Units under the skin in the morning and 10 Units at noon and 10 Units in the evening. inject before meals. [facility] insulin degludec (TRESIBA FLEXTOUCH U-200) 200 unit/mL (3 mL) In 07-16 00:00: 00 Yes [id number] 80U inject 80 Units under the skin in the morning and 80 Units in the evening. [facility] atorvastati n 40 mg tablet 07-16 00:00: 00 Yes [id number] 40mg Take 1 tablet by mouth at bedtime. [facility] amLODIPine 10 mg tablet 07-16 00:00: 00 Yes [id number] 10mg Take 1 tablet by mouth in the morning. [facility] insulin aspart U-100 (NOVOLOG FLEXPEN U-100 INSULIN) 100 unit/mL (3 mL) injection 07-16 00:00: 00 Yes [id number] 10U inject 10 Units under the skin in the morning and 10 Units at noon and 10 Units in the evening. inject before meals. [facility] insulin degludec (TRESIBA FLEXTOUCH U-200) 200 unit/mL (3 mL) In 07-16 00:00: 00 Yes [id number] 80U inject 80 Units under the skin in the morning and 80 Units in the evening. [facility] atorvastati n 40 mg tablet 07-16 00:00: 00 Yes [id number] 40mg Take 1 tablet by mouth at bedtime. [facility] amLODIPine 10 mg tablet 07-16 00:00: 00 Yes [id number] 10mg Take 1 tablet by mouth in the morning. [facility] insulin aspart U-100 (NOVOLOG FLEXPEN U-100 INSULIN) 100 unit/mL (3 mL) injection 07-16 00:00: 00 Yes [id number] 10U inject 10 Units under the skin in the morning and 10 Units at noon and 10 Units in the evening. inject before meals. [facility] insulin degludec (TRESIBA FLEXTOUCH U-200) 200 unit/mL (3 mL) In 07-16 00:00: 00 Yes [id number] 80U inject 80 Units under the skin in the morning and 80 Units in the evening. [facility] atorvastati n 40 mg tablet 07-16 00:00: 00 Yes [id number] 40mg Take 1 tablet by mouth at bedtime. [facility] amLODIPine 10 mg tablet 07-16 00:00: 00 Yes [id number] 10mg Take 1 tablet by mouth in the morning. [facility] insulin aspart U-100 (NOVOLOG FLEXPEN U-100 INSULIN) 100 unit/mL (3 mL) injection 07-16 00:00: 00 Yes [id number] 10U inject 10 Units under the skin in the morning and 10 Units at noon and 10 Units in the evening. inject before meals. [facility] atorvastati n 40 mg tablet 07-16 00:00: 00 Yes [id number] 40mg Take 1 tablet by mouth at bedtime. [facility] amLODIPine 10 mg tablet 07-16 00:00: 00 Yes [id number] 10mg Take 1 tablet by mouth in the morning. [facility] insulin aspart U-100 (NOVOLOG FLEXPEN U-100 INSULIN) 100 unit/mL (3 mL) injection 07-16 00:00: 00 Yes [id number] 10U inject 10 Units under the skin in the morning and 10 Units at noon and 10 Units in the evening. inject before meals. [facility] atorvastati n 40 mg tablet 07-16 00:00: 00 Yes [id number] 40mg Take 1 tablet by mouth at bedtime. [facility] amLODIPine 10 mg tablet 07-16 00:00: 00 Yes [id number] 10mg Take 1 tablet by mouth in the morning. [facility] insulin aspart U-100 (NOVOLOG FLEXPEN U-100 INSULIN) 100 unit/mL (3 mL) injection 07-16 00:00: 00 Yes [id number] 10U inject 10 Units under the skin in the morning and 10 Units at noon and 10 Units in the evening. inject before meals. [facility] atorvastati n 40 mg tablet 07-16 00:00: 00 Yes [id number] 40mg Take 1 tablet by mouth at bedtime. [facility] amLODIPine 10 mg tablet 07-16 00:00: 00 Yes [id number] 10mg Take 1 tablet by mouth in the morning. [facility] insulin aspart U-100 (NOVOLOG FLEXPEN U-100 INSULIN) 100 unit/mL (3 mL) injection 07-16 00:00: 00 Yes [id number] 10U inject 10 Units under the skin in the morning and 10 Units at noon and 10 Units in the evening. inject before meals. [facility] atorvastati n 40 mg tablet 07-16 00:00: 00 Yes [id number] 40mg Take 1 tablet by mouth at bedtime. [facility] amLODIPine 10 mg tablet 07-16 00:00: 00 Yes [id number] 10mg Take 1 tablet by mouth in the morning. [facility] insulin aspart U-100 (NOVOLOG FLEXPEN U-100 INSULIN) 100 unit/mL (3 mL) injection 07-16 00:00: 00 Yes [id number] 10U inject 10 Units under the skin in the morning and 10 Units at noon and 10 Units in the evening. inject before meals. [facility] atorvastati n 40 mg tablet 07-16 00:00: 00 Yes [id number] 40mg Take 1 tablet by mouth at bedtime. [facility] amLODIPine 10 mg tablet 07-16 00:00: 00 Yes [id number] 10mg Take 1 tablet by mouth in the morning. [facility] insulin aspart U-100 (NOVOLOG FLEXPEN U-100 INSULIN) 100 unit/mL (3 mL) injection 07-16 00:00: 00 Yes [id number] 10U inject 10 Units under the skin in the morning and 10 Units at noon and 10 Units in the evening. inject before meals. [facility] atorvastati n 40 mg tablet 07-16 00:00: 00 Yes [id number] 40mg Take 1 tablet by mouth at bedtime. [facility] amLODIPine 10 mg tablet 07-16 00:00: 00 Yes [id number] 10mg Take 1 tablet by mouth in the morning. [facility] [facility] U-100 (NOVOLOG FLEXPEN U-100 INSULIN) 100 unit/mL (3 mL) injection 07-16 00:00: 00 Yes [id number] 10U inject 10 Units under the skin in the morning and 10 Units at noon and 10 Units in the evening. inject before meals. [facility] atorvastati n 40 mg tablet 07-16 00:00: 00 Yes [id number] 40mg Take 1 tablet by mouth at bedtime. [facility] amLODIPine 10 mg tablet 07-16 00:00: 00 Yes [id number] 10mg Take 1 tablet by mouth in the morning. [facility] insulin aspart U-100 (NOVOLOG FLEXPEN U-100 INSULIN) 100 unit/mL (3 mL) injection 07-16 00:00: 00 Yes [id number] 10U inject 10 Units under the skin in the morning and 10 Units at noon and 10 Units in the evening. inject before meals. [facility] atorvastati n 40 mg tablet 07-16 00:00: 00 Yes [id number] 40mg Take 1 tablet by mouth at bedtime. [facility] amLODIPine 10 mg tablet 07-16 00:00: 00 Yes [id number] 10mg Take 1 tablet by mouth in the morning. [facility] insulin aspart U-100 (NOVOLOG FLEXPEN U-100 INSULIN) 100 unit/mL (3 mL) injection 07-16 00:00: 00 Yes [id number] 10U inject 10 Units under the skin in the morning and 10 Units at noon and 10 Units in the evening. inject before meals. [facility] atorvastati n 40 mg tablet 07-16 00:00: 00 Yes [id number] 40mg Take 1 tablet by mouth at bedtime. [facility] amLODIPine 10 mg tablet 07-16 00:00: 00 Yes [id number] 10mg Take 1 tablet by mouth in the morning. [facility] insulin aspart U-100 (NOVOLOG FLEXPEN U-100 INSULIN) 100 unit/mL (3 mL) injection 07-16 00:00: 00 Yes [id number] 10U inject 10 Units under the skin in the morning and 10 Units at noon and 10 Units in the evening. inject before meals. [facility] atorvastati n 40 mg tablet 07-16 00:00: 00 Yes [id number] 40mg Take 1 tablet by mouth at bedtime. [facility] amLODIPine 10 mg tablet 07-16 00:00: 00 Yes [id number] 10mg Take 1 tablet by mouth in the morning. [facility] insulin aspart U-100 (NOVOLOG FLEXPEN U-100 INSULIN) 100 unit/mL (3 mL) injection 07-16 00:00: 00 Yes [id number] 10U inject 10 Units under the skin in the morning and 10 Units at noon and 10 Units in the evening. inject before meals. [facility] insulin aspart U-100 (NOVOLOG FLEXPEN U-100 INSULIN) 100 unit/mL (3 mL) injection 07-16 00:00: 00 Yes [id number] 10U inject 10 Units under the skin in the morning and 10 Units at noon and 10 Units in the evening. inject before meals. [facility] insulin aspart U-100 (NOVOLOG FLEXPEN U-100 INSULIN) 100 unit/mL (3 mL) injection 07-16 00:00: 00 Yes [id number] 10U inject 10 Units under the skin in the morning and 10 Units at noon and 10 Units in the evening. inject before meals. [facility] insulin aspart U-100 (NOVOLOG FLEXPEN U-100 INSULIN) 100 unit/mL (3 mL) injection 07-16 00:00: 00 Yes [id number] 10U inject 10 Units under the skin in the morning and 10 Units at noon and 10 Units in the evening. inject before meals. [facility] insulin aspart U-100 (NOVOLOG FLEXPEN U-100 INSULIN) 100 unit/mL (3 mL) injection 07-16 00:00: 00 Yes [id number] 10U inject 10 Units under the skin in the morning and 10 Units at noon and 10 Units in the evening. inject [facility] meals[facility] (NOVOLOG FLEXPEN U-100 INSULIN) 100 unit/mL (3 mL) injection 07-16 00:00: 00 Yes [id number] 10U inject 10 Units under the skin in the morning and 10 Units at noon and 10 Units in the evening. inject before meals. [facility] (NOVOLOG FLEXPEN U-100 INSULIN) 100 unit/mL (3 mL) injection 07-16 00:00: 00 Yes [id number] 10U inject 10 Units under the skin in the morning and 10 Units at noon and 10 Units in the evening. inject before meals. [facility] insulin aspart U-100 (NOVOLOG FLEXPEN U-100 INSULIN) 100 unit/mL (3 mL) injection 07-16 00:00: 00 Yes [id number] 10U inject 10 Units under the skin in the morning and 10 Units at noon and 10 Units in the evening. inject before meals. [facility] insulin aspart U-100 (NOVOLOG FLEXPEN U-100 INSULIN) 100 unit/mL (3 mL) injection 07-16 00:00: 00 Yes [id number] 10U inject 10 Units under the skin in the morning and 10 Units at noon and 10 Units in the evening. inject before meals. [facility] insulin aspart U-100 (NOVOLOG FLEXPEN U-100 INSULIN) 100 unit/mL (3 mL) injection 07-16 00:00: 00 Yes [id number] 10U inject 10 Units under the skin in the morning and 10 Units at noon and 10 Units in the evening. inject before meals. [facility] (NOVOLOG FLEXPEN U-100 INSULIN) 100 unit/mL (3 mL) injection 07-16 00:00: 00 Yes [id number] 10U inject 10 Units under the skin in the morning and 10 Units at noon and 10 Units in the evening. inject before meals. [facility] (NOVOLOG FLEXPEN U-100 INSULIN) 100 unit/mL (3 mL) injection 07-16 00:00: 00 Yes [id number] 10U inject 10 Units under the skin in the morning and 10 Units at noon and 10 Units in the evening. inject before meals. [facility] insulin aspart U-100 (NOVOLOG FLEXPEN U-100 INSULIN) 100 unit/mL (3 mL) injection 07-16 00:00: 00 Yes [id number] 10U inject 10 Units under the skin in the morning and 10 Units at noon and 10 Units in the evening. inject before meals. [facility] insulin aspart U-100 (NOVOLOG FLEXPEN U-100 INSULIN) 100 unit/mL (3 mL) injection 07-16 00:00: 00 Yes [id number] 10U inject 10 Units under the skin in the morning and 10 Units at noon and 10 Units in the evening. inject before meals. [facility] insulin aspart U-100 (NOVOLOG FLEXPEN U-100 INSULIN) 100 unit/mL (3 mL) injection 07-16 00:00: 00 Yes [id number] 10U inject 10 Units under the skin in the morning and 10 Units at noon and 10 Units in the evening. inject before meals. [facility] insulin aspart U-100 (NOVOLOG FLEXPEN U-100 INSULIN) 100 unit/mL (3 mL) injection 07-16 00:00: 00 Yes [id number] 10U inject 10 Units under the skin in the morning and 10 Units at noon and 10 Units in the evening. inject before meals. [facility] insulin aspart U-100 (NOVOLOG FLEXPEN U-100 INSULIN) 100 unit/mL (3 mL) injection 07-16 00:00: 00 Yes [id number] 10U inject 10 Units under the skin in the morning and 10 Units at noon and 10 Units in the evening. inject before meals. [facility] insulin aspart U-100 (NOVOLOG FLEXPEN U-100 INSULIN) 100 unit/mL (3 mL) injection 07-16 00:00: 00 Yes [id number] 10U inject 10 Units under the skin in the morning and 10 Units at noon and 10 Units in the evening. inject before meals. [facility] insulin aspart U-100 (NOVOLOG FLEXPEN U-100 INSULIN) 100 unit/mL (3 mL) injection 07-16 00:00: 00 Yes [id number] 10U inject 10 Units under the skin in the morning and 10 Units at noon and 10 Units in the evening. inject before meals. [facility] insulin aspart U-100 (NOVOLOG FLEXPEN U-100 INSULIN) 100 unit/mL (3 mL) injection 07-16 00:00: 00 Yes [id number] 10U inject 10 Units under the skin in the morning and 10 Units at noon and 10 Units in the evening. inject before meals. [facility] insulin aspart U-100 (NOVOLOG FLEXPEN U-100 INSULIN) 100 unit/mL (3 mL) injection 07-16 00:00: 00 Yes [id number] 10U inject 10 Units under the skin in the morning and 10 Units at noon and 10 Units in the evening. inject before meals. [facility] insulin aspart U-100 (NOVOLOG FLEXPEN U-100 INSULIN) 100 unit/mL (3 mL) injection 07-16 00:00: 00 Yes [id number] 10U inject 10 Units under the skin in the morning and 10 Units at noon and 10 Units in the evening. inject before meals. [facility] insulin aspart U-100 (NOVOLOG FLEXPEN U-100 INSULIN) 100 unit/mL (3 mL) injection 07-16 00:00: 00 Yes [id number] 10U inject 10 Units under the skin in the morning and 10 Units at noon and 10 Units in the evening. inject before meals. [facility] insulin aspart U-100 (NOVOLOG FLEXPEN U-100 INSULIN) 100 unit/mL (3 mL) injection 07-16 00:00: 00 Yes [id number] 10U inject 10 Units under the skin in the morning and 10 Units at noon and 10 Units in the evening. inject before meals. [facility] insulin aspart U-100 (NOVOLOG FLEXPEN U-100 INSULIN) 100 unit/mL (3 mL) injection 07-16 00:00: 00 Yes [id number] 10U inject 10 Units under the skin in the morning and 10 Units at noon and 10 Units in the evening. inject [facility] meals. [facility] (NOVOLOG FLEXPEN U-100 INSULIN) 100 unit/mL (3 mL) injection 07-16 00:00: 00 Yes [id number] 10U inject 10 Units under the skin in the morning and 10 Units at noon and 10 Units in the evening. inject before meals. [facility] (NOVOLOG FLEXPEN U-100 INSULIN) 100 unit/mL (3 mL) injection 07-16 00:00: 00 Yes [id number] 10U inject 10 Units under the skin in the morning and 10 Units at noon and 10 Units in the evening. inject before meals. [facility] insulin aspart U-100 (NOVOLOG FLEXPEN U-100 INSULIN) 100 unit/mL (3 mL) injection 07-16 00:00: 00 Yes [id number] 10U inject 10 Units under the skin in the morning and 10 Units at noon and 10 Units in the evening. inject before meals. [facility] insulin aspart U-100 (NOVOLOG FLEXPEN U-100 INSULIN) 100 unit/mL (3 mL) injection 07-16 00:00: 00 Yes [id number] 10U inject 10 Units under the skin in the morning and 10 Units at noon and 10 Units in the evening. inject before meals. [facility] insulin aspart U-100 (NOVOLOG FLEXPEN U-100 INSULIN) 100 unit/mL (3 mL) injection 07-16 00:00: 00 Yes [id number] 10U inject 10 Units under the skin in the morning and 10 Units at noon and 10 Units in the evening. inject before meals. [facility] (NOVOLOG FLEXPEN U-100 INSULIN) 100 unit/mL (3 mL) injection 07-16 00:00: 00 Yes [id number] 10U inject 10 Units under the skin in the morning and 10 Units at noon and 10 Units in the evening. inject before meals. [facility] (NOVOLOG FLEXPEN U-100 INSULIN) 100 unit/mL (3 mL) injection 07-16 00:00: 00 Yes [id number] 10U inject 10 Units under the skin in the morning and 10 Units at noon and 10 Units in the evening. inject before meals. [facility] insulin aspart U-100 (NOVOLOG FLEXPEN U-100 INSULIN) 100 unit/mL (3 mL) injection 07-16 00:00: 00 Yes [id number] 10U inject 10 Units under the skin in the morning and 10 Units at noon and 10 Units in the evening. inject before meals. [facility] insulin aspart U-100 (NOVOLOG FLEXPEN U-100 INSULIN) 100 unit/mL (3 mL) injection 07-16 00:00: 00 Yes [id number] 10U inject 10 Units under the skin in the morning and 10 Units at noon and 10 Units in the evening. inject before meals. [facility] insulin aspart U-100 (NOVOLOG FLEXPEN U-100 INSULIN) 100 unit/mL (3 mL) injection 07-16 00:00: 00 Yes [id number] 10U inject 10 Units under the skin in the morning and 10 Units at noon and 10 Units in the evening. inject before meals. [facility] insulin aspart U-100 (NOVOLOG FLEXPEN U-100 INSULIN) 100 unit/mL (3 mL) injection 07-16 00:00: 00 Yes [id number] 10U inject 10 Units under the skin in the morning and 10 Units at noon and 10 Units in the evening. inject before meals. [facility] insulin aspart U-100 (NOVOLOG FLEXPEN U-100 INSULIN) 100 unit/mL (3 mL) injection 07-16 00:00: 00 Yes [id number] 10U inject 10 Units under the skin in the morning and 10 Units at noon and 10 Units in the evening. inject before meals. [facility] insulin aspart U-100 (NOVOLOG FLEXPEN U-100 INSULIN) 100 unit/mL (3 mL) injection 07-16 00:00: 00 Yes [id number] 10U inject 10 Units under the skin in the morning and 10 Units at noon and 10 Units in the evening. inject before meals. [facility] insulin aspart U-100 (NOVOLOG FLEXPEN U-100 INSULIN) 100 unit/mL (3 mL) injection 07-16 00:00: 00 Yes [id number] 10U inject 10 Units under the skin in the morning and 10 Units at noon and 10 Units in the evening. inject before meals. [facility] insulin aspart U-100 (NOVOLOG FLEXPEN U-100 INSULIN) 100 unit/mL (3 mL) injection 07-16 00:00: 00 Yes [id number] 10U inject 10 Units under the skin in the morning and 10 Units at noon and 10 Units in the evening. inject before meals. [facility] insulin aspart U-100 (NOVOLOG FLEXPEN U-100 INSULIN) 100 unit/mL (3 mL) injection 07-16 00:00: 00 Yes [id number] 10U inject 10 Units under the skin in the morning and 10 Units at noon and 10 Units in the evening. inject before meals. [facility] insulin aspart U-100 (NOVOLOG FLEXPEN U-100 INSULIN) 100 unit/mL (3 mL) injection 07-16 00:00: 00 06-28 00:00 :00 No [id number] 10U inject 10 Units under the skin in the morning and 10 Units at noon and 10 Units in the evening. inject before meals. [facility] insulin aspart U-100 (NOVOLOG FLEXPEN U-100 INSULIN) 100 unit/mL (3 mL) injection 07-16 00:00: 00 06-28 00:00 :00 No [id number] 10U inject 10 Units under the skin in the morning and 10 Units at noon and 10 Units in the evening. inject before meals. [facility] insulin aspart U-100 (NOVOLOG FLEXPEN U-100 INSULIN) 100 unit/mL (3 mL) injection 07-16 00:00: 00 06-28 00:00 :00 No [id number] 10U inject 10 Units under the skin in the morning and 10 Units at noon and 10 Units in the evening. inject before meals. [facility] insulin aspart U-100 (NOVOLOG FLEXPEN U-100 INSULIN) 100 unit/mL (3 mL) injection 07-16 00:00: 00 06-28 00:00 :00 No [id number] 10U inject 10 Units under the skin in the morning and 10 Units at noon and 10 Units in the evening. inject before meals. [facility] insulin aspart U-100 (NOVOLOG FLEXPEN U-100 INSULIN) 100 unit/mL (3 mL) injection 07-16 00:00: 00 06-28 00:00 :00 No [id number] 10U inject 10 Units under the skin in the morning and 10 Units at noon and 10 Units in the evening. inject before meals. [facility] atorvastati n 40 mg tablet 07-16 00:00: 00 02-01 00:00 :00 No [id number] 40mg Take 1 tablet by mouth at bedtime. [facility] amLODIPine 10 mg tablet 07-16 00:00: 00 02-01 00:00 :00 No [id number] 10mg Take 1 tablet by mouth in the morning. [facility] insulin degludec (TRESIBA FLEXTOUCH U-200) 200 unit/mL (3 mL) [facility] 07-16 00:00: 00 11-18 00:00 :00 No [id number] 80U inject 80 Units under the skin in the morning and 80 Units in the evening. [facility] insulin degludec (TRESIBA FLEXTOUCH U-200) 200 unit/mL (3 mL) [facility] 07-16 00:00: 00 11-18 00:00 :00 No [id number] 80U inject 80 Units under the skin in the morning and 80 Units in the evening. [facility] allopurinoL 100 mg tablet 07-16 00:00: 00 08-18 00:00 :00 No [id number] 200mg Take 2 tablets by mouth in the morning. [facility] AMLODIPINE 10 mg tablet 2-17 00:00: 00 Yes [id number] TAKE ONE TABLET BY MOUTH DAILY [facility] ATORVASTATI N 40 mg tablet 3-0 2-17 00:00: 00 Yes [id number] TAKE ONE TABLET BY MOUTH AT BEDTIME [facility] AMLODIPINE 10 mg tablet 3-0 2-17 00:00: 00 Yes [id number] TAKE ONE TABLET BY MOUTH DAILY [facility] ATORVASTATI N 40 mg tablet 3-0 2-17 00:00: 00 Yes [id number] TAKE ONE TABLET BY MOUTH AT BEDTIME [facility] AMLODIPINE 10 mg tablet 3-0 2-17 00:00: 00 Yes [id number] TAKE ONE TABLET BY MOUTH DAILY [facility] ATORVASTATI N 40 mg tablet 3-0 2-17 00:00: 00 Yes [id number] TAKE ONE TABLET BY MOUTH AT BEDTIME [facility] AMLODIPINE 10 mg tablet 3-0 2-17 00:00: 00 Yes [id number] TAKE ONE TABLET BY MOUTH DAILY [facility] ATORVASTATI N 40 mg tablet 2022-0 2-17 00:00: 00 Yes [id number] TAKE ONE TABLET BY MOUTH AT BEDTIME [facility] AMLODIPINE 10 mg tablet 2022-0 2-17 00:00: 00 07-16 00:00 :00 No [id number] TAKE ONE TABLET BY MOUTH DAILY [facility] ATORVASTATI N 40 mg tablet 2022-0 2-17 00:00: 00 07-16 00:00 :00 No [id number] TAKE ONE TABLET BY MOUTH AT BEDTIME [facility] AMLODIPINE 10 mg tablet 3-0 2-17 00:00: 00 07-16 00:00 :00 No [id number] TAKE ONE TABLET BY MOUTH DAILY [facility] ATORVASTATI N 40 mg tablet 3-0 2-17 00:00: 00 07-16 00:00 :00 No [id number] TAKE ONE TABLET BY MOUTH AT BEDTIME [facility] AMLODIPINE 10 mg tablet 3-0 2-17 00:00: 00 07-16 00:00 :00 No [id number] TAKE ONE TABLET BY MOUTH DAILY [facility] ATORVASTATI N 40 mg tablet 2022-0 2-17 00:00: 00 07-16 00:00 :00 No [id number] TAKE ONE TABLET BY MOUTH AT BEDTIME [facility] AMLODIPINE 10 mg tablet 2022-0 2-17 00:00: 00 07-16 00:00 :00 No [id number] TAKE ONE TABLET BY MOUTH DAILY [facility] ATORVASTATI N 40 mg tablet 2022-0 2-17 00:00: 00 07-16 00:00 :00 No [id number] TAKE ONE TABLET BY MOUTH AT BEDTIME [facility] AMLODIPINE 10 mg tablet 2022-0 -17 00:00: 00 07-16 00:00 :00 No [id number] TAKE ONE TABLET BY MOUTH DAILY [facility] ATORVASTATI N 40 mg tablet 2022-0 17 00:00: 00 07-16 00:00 :00 No [id number] TAKE ONE TABLET BY MOUTH AT BEDTIME [facility] NEBIVOLOL 10 mg tablet 2022-0 2-06 00:00: 00 Yes [id number] TAKE ONE TABLET BY MOUTH DAILY [facility] NEBIVOLOL 10 mg tablet 2022-0 2-06 00:00: 00 Yes [id number] TAKE ONE TABLET BY MOUTH DAILY [facility] NEBIVOLOL 10 mg tablet 2022-0 2-06 00:00: 00 Yes [id number] TAKE ONE TABLET BY MOUTH DAILY [facility] NEBIVOLOL 10 mg tablet 2022-0 2-06 00:00: 00 Yes [id number] TAKE ONE TABLET BY MOUTH DAILY [facility] NEBIVOLOL 10 mg tablet 2022-0 2-06 00:00: 00 Yes [id number] TAKE ONE TABLET BY MOUTH DAILY [facility] NEBIVOLOL 10 mg tablet 2022-0 2-06 00:00: 00 Yes [id number] TAKE ONE TABLET BY MOUTH DAILY [facility] NEBIVOLOL 10 mg tablet 2022-0 2-06 00:00: 00 Yes [id number] TAKE ONE TABLET BY MOUTH DAILY [facility] NEBIVOLOL 10 mg tablet 0 2 00:00: 00 Yes [id number] TAKE ONE TABLET BY MOUTH DAILY [facility] NEBIVOLOL 10 mg tablet 0 2- 00:00: 00 Yes [id number] TAKE ONE TABLET BY MOUTH DAILY [facility] NEBIVOLOL 10 mg tablet 2 00:00: 00 Yes [id number] TAKE ONE TABLET BY MOUTH DAILY [facility] NEBIVOLOL 10 mg tablet 2 00:00: 00 07-21 00:00 :00 No [id number] TAKE ONE TABLET BY MOUTH DAILY [facility] TAMSULOSIN 0.4 mg 24 hr capsule 0 06-08 00:00: 00 Yes [id number] TAKE ONE CAPSULE BY MOUTH EVERY MORNING [facility] TAMSULOSIN 0.4 mg 24 hr capsule 0 06-08 00:00: 00 Yes [id number] TAKE ONE CAPSULE BY MOUTH EVERY MORNING [facility] semaglutide (OZEMPIC) 1 mg/dose (4 mg/3 mL) [facility] 06-08 00:00: 00 Yes [id number] 1mg inject 1 mg under the skin weekly. [facility] semaglutide (OZEMPIC) 1 mg/dose (4 mg/3 mL) [facility] 06-08 00:00: 00 Yes [id number] 1mg inject 1 mg under the skin weekly. [facility] TAMSULOSIN 0.4 mg 24 hr capsule 06-08 00:00: 00 Yes [id number] TAKE ONE CAPSULE BY MOUTH EVERY MORNING [facility] semaglutide (OZEMPIC) 1 mg/dose (4 mg/3 mL) PnIj 0 06-08 00:00: 00 Yes [id number] 1mg inject 1 mg under the skin weekly. [facility] TAMSULOSIN 0.4 mg 24 hr capsule 06-08 00:00: 00 Yes [id number] TAKE ONE CAPSULE BY MOUTH EVERY MORNING [facility] semaglutide (OZEMPIC) 1 mg/dose (4 mg/3 mL) [facility] 06-08 00:00: 00 Yes [id number] 1mg inject 1 mg under the skin weekly. [facility] TAMSULOSIN 0.4 mg 24 hr capsule 2022-0 06-08 00:00: 00 Yes [id number] TAKE ONE CAPSULE BY MOUTH EVERY MORNING [facility] semaglutide (OZEMPIC) 1 mg/dose (4 mg/3 mL) PnIj 0 06-08 00:00: 00 Yes [id number] 1mg inject 1 mg under the skin weekly. [facility] TAMSULOSIN 0.4 mg 24 hr capsule 2022-0 06-08 00:00: 00 Yes [id number] TAKE ONE CAPSULE BY MOUTH EVERY MORNING [facility] semaglutide (OZEMPIC) 1 mg/dose (4 mg/3 mL) Pn[facility]j 0 06-08 00:00: 00 Yes [id number] 1mg inject 1 mg under the skin weekly. [facility] TAMSULOSIN 0.4 mg 24 hr capsule 2022-0 06-08 00:00: 00 Yes [id number] TAKE ONE CAPSULE BY MOUTH EVERY MORNING [facility] semaglutide (OZEMPIC) 1 mg/dose (4 mg/3 mL) Pn[facility]j 0 06-08 00:00: 00 Yes [id number] 1mg inject 1 mg under the skin weekly. [facility] TAMSULOSIN 0.4 mg 24 hr capsule 2022-0 06-08 00:00: 00 Yes [id number] TAKE ONE CAPSULE BY MOUTH EVERY MORNING [facility] semaglutide (OZEMPIC) 1 mg/dose (4 mg/3 mL) PnIj 0 06-08 00:00: 00 Yes [id number] 1mg inject 1 mg under the skin weekly. [facility] TAMSULOSIN 0.4 mg 24 hr capsule 3-0 06-08 00:00: 00 Yes [id number] TAKE ONE CAPSULE BY MOUTH EVERY MORNING [facility] TAMSULOSIN 0.4 mg 24 hr capsule 3-0 06-08 00:00: 00 Yes [id number] TAKE ONE CAPSULE BY MOUTH EVERY MORNING [facility] TAMSULOSIN 0.4 mg 24 hr capsule 3-0 06-08 00:00: 00 Yes [id number] TAKE ONE CAPSULE BY MOUTH EVERY MORNING [facility] TAMSULOSIN 0.4 mg 24 hr capsule 3-0 06-08 00:00: 00 Yes [id number] TAKE ONE CAPSULE BY MOUTH EVERY MORNING [facility] TAMSULOSIN 0.4 mg 24 hr capsule 3-0 06-08 00:00: 00 Yes [id number] TAKE ONE CAPSULE BY MOUTH EVERY MORNING [facility] TAMSULOSIN 0.4 mg 24 hr capsule 3-0 06-08 00:00: 00 Yes [id number] TAKE ONE CAPSULE BY MOUTH EVERY MORNING [facility] TAMSULOSIN 0.4 mg 24 hr capsule 3-0 06-08 00:00: 00 Yes [id number] TAKE ONE CAPSULE BY MOUTH EVERY MORNING [facility] TAMSULOSIN 0.4 mg 24 hr capsule 3-0 06-08 00:00: 00 Yes [id number] TAKE ONE CAPSULE BY MOUTH EVERY MORNING [facility] TAMSULOSIN 0.4 mg 24 hr capsule 3-0 06-08 00:00: 00 Yes [id number] TAKE ONE CAPSULE BY MOUTH EVERY MORNING [facility] TAMSULOSIN 0.4 mg 24 hr capsule 3-0 06-08 00:00: 00 Yes [id number] TAKE ONE CAPSULE BY MOUTH EVERY MORNING [facility] TAMSULOSIN 0.4 mg 24 hr capsule 3-0 06-08 00:00: 00 Yes [id number] TAKE ONE CAPSULE BY MOUTH EVERY MORNING [facility] TAMSULOSIN 0.4 mg 24 hr capsule 3-0 06-08 00:00: 00 Yes [id number] TAKE ONE CAPSULE BY MOUTH EVERY MORNING [facility] TAMSULOSIN 0.4 mg 24 hr capsule 3-0 06-08 00:00: 00 Yes [id number] TAKE ONE CAPSULE BY MOUTH EVERY MORNING [facility] TAMSULOSIN 0.4 mg 24 hr capsule 3-0 06-08 00:00: 00 Yes [id number] TAKE ONE CAPSULE BY MOUTH EVERY MORNING [facility] TAMSULOSIN 0.4 mg 24 hr capsule 3-0 06-08 00:00: 00 Yes [id number] TAKE ONE CAPSULE BY MOUTH EVERY MORNING [facility] TAMSULOSIN 0.4 mg 24 hr capsule 3-0 06-08 00:00: 00 Yes [id number] TAKE ONE CAPSULE BY MOUTH EVERY MORNING [facility] TAMSULOSIN 0.4 mg 24 hr capsule 3-0 06-08 00:00: 00 Yes [id number] TAKE ONE CAPSULE BY MOUTH EVERY MORNING [facility] TAMSULOSIN 0.4 mg 24 hr capsule 3-0 06-08 00:00: 00 Yes [id number] TAKE ONE CAPSULE BY MOUTH EVERY MORNING [facility] TAMSULOSIN 0.4 mg 24 hr capsule 3-0 06-08 00:00: 00 Yes [id number] TAKE ONE CAPSULE BY MOUTH EVERY MORNING [facility] TAMSULOSIN 0.4 mg 24 hr capsule 3-0 06-08 00:00: 00 Yes [id number] TAKE ONE CAPSULE BY MOUTH EVERY MORNING [facility] TAMSULOSIN 0.4 mg 24 hr capsule 3-0 06-08 00:00: 00 Yes [id number] TAKE ONE CAPSULE BY MOUTH EVERY MORNING [facility] TAMSULOSIN 0.4 mg 24 hr capsule 3-0 06-08 00:00: 00 Yes [id number] TAKE ONE CAPSULE BY MOUTH EVERY MORNING [facility] TAMSULOSIN 0.4 mg 24 hr capsule 3-0 06-08 00:00: 00 Yes [id number] TAKE ONE CAPSULE BY MOUTH EVERY MORNING [facility] TAMSULOSIN 0.4 mg 24 hr capsule 3-0 06-08 00:00: 00 Yes [id number] TAKE ONE CAPSULE BY MOUTH EVERY MORNING [facility] TAMSULOSIN 0.4 mg 24 hr capsule 3-0 06-08 00:00: 00 Yes [id number] TAKE ONE CAPSULE BY MOUTH EVERY MORNING [facility] TAMSULOSIN 0.4 mg 24 hr capsule 3-0 06-08 00:00: 00 Yes [id number] TAKE ONE CAPSULE BY MOUTH EVERY MORNING [facility] TAMSULOSIN 0.4 mg 24 hr capsule 3-0 06-08 00:00: 00 Yes [id number] TAKE ONE CAPSULE BY MOUTH EVERY MORNING [facility] TAMSULOSIN 0.4 mg 24 hr capsule 3-0 06-08 00:00: 00 Yes [id number] TAKE ONE CAPSULE BY MOUTH EVERY MORNING [facility] TAMSULOSIN 0.4 mg 24 hr capsule 2022-0 06-08 00:00: 00 Yes [id number] TAKE ONE CAPSULE BY MOUTH EVERY MORNING [facility] TAMSULOSIN 0.4 mg 24 hr capsule 3-0 06-08 00:00: 00 Yes [id number] TAKE ONE CAPSULE BY MOUTH EVERY MORNING [facility] TAMSULOSIN 0.4 mg 24 hr capsule 2022-0 06-08 00:00: 00 Yes [id number] TAKE ONE CAPSULE BY MOUTH EVERY MORNING [facility] TAMSULOSIN 0.4 mg 24 hr capsule 2022-0 06-08 00:00: 00 Yes [id number] TAKE ONE CAPSULE BY MOUTH EVERY MORNING [facility] TAMSULOSIN 0.4 mg 24 hr capsule 2022-0 06-08 00:00: 00 Yes [id number] TAKE ONE CAPSULE BY MOUTH EVERY MORNING [facility] TAMSULOSIN 0.4 mg 24 hr capsule 0 06-08 00:00: 00 Yes [id number] TAKE ONE CAPSULE BY MOUTH EVERY MORNING [facility] TAMSULOSIN 0.4 mg 24 hr capsule 0 06-08 00:00: 00 Yes [id number] TAKE ONE CAPSULE BY MOUTH EVERY MORNING [facility] TAMSULOSIN 0.4 mg 24 hr capsule 2022-0 06-08 00:00: 00 Yes [id number] TAKE ONE CAPSULE BY MOUTH EVERY MORNING [facility] TAMSULOSIN 0.4 mg 24 hr capsule 0 06-08 00:00: 00 01-19 00:00 :00 No [id number] TAKE ONE CAPSULE BY MOUTH EVERY MORNING [facility] semaglutide (OZEMPIC) 1 mg/dose (4 mg/3 mL) PnIj 06-08 00:00: 00 07-18 00:00 :00 No [id number] 1mg inject 1 mg under the skin weekly. [facility] semaglutide (OZEMPIC) 1 mg/dose (4 mg/3 mL) PnIj 06-08 00:00: 00 07-18 00:00 :00 No [id number] 1mg inject 1 mg under the skin weekly. [facility] semaglutide (OZEMPIC) 1 mg/dose (4 mg/3 mL) PnIj 06-08 00:00: 00 07-18 00:00 :00 No [id number] 1mg inject 1 mg under the skin weekly. [facility] ALLOPURINOL 100 mg tablet 0 06-05 00:00: 00 Yes [id number] TAKE TWO TABLETS BY MOUTH DAILY [facility] AMLODIPINE 10 mg tablet 0 06-05 00:00: 00 Yes [id number] TAKE ONE TABLET BY MOUTH DAILY [facility] ALLOPURINOL 100 mg tablet 0 06-05 00:00: 00 Yes [id number] TAKE TWO TABLETS BY MOUTH DAILY [facility] AMLODIPINE 10 mg tablet 0 06-05 00:00: 00 Yes [id number] TAKE ONE TABLET BY MOUTH DAILY [facility] ALLOPURINOL 100 mg tablet 0 06-05 00:00: 00 Yes [id number] TAKE TWO TABLETS BY MOUTH DAILY [facility] AMLODIPINE 10 mg tablet 0 06-05 00:00: 00 Yes [id number] TAKE ONE TABLET BY MOUTH DAILY [facility] ALLOPURINOL 100 mg tablet 0 06-05 00:00: 00 Yes [id number] TAKE TWO TABLETS BY MOUTH DAILY [facility] AMLODIPINE 10 mg tablet 0 06-05 00:00: 00 Yes [id number] TAKE ONE TABLET BY MOUTH DAILY [facility] ALLOPURINOL 100 mg tablet 0 06-05 00:00: 00 Yes [id number] TAKE TWO TABLETS BY MOUTH DAILY [facility] ALLOPURINOL 100 mg tablet 0 06-05 00:00: 00 Yes [id number] TAKE TWO TABLETS BY MOUTH DAILY [facility] ALLOPURINOL 100 mg tablet 0 06-05 00:00: 00 Yes [id number] TAKE TWO TABLETS BY MOUTH DAILY [facility] ALLOPURINOL 100 mg tablet 0 20 00:00: 00 Yes [id number] TAKE TWO TABLETS BY MOUTH DAILY [facility] ALLOPURINOL 100 mg tablet 0 -20 00:00: 00 07-16 00:00 :00 No [id number] TAKE TWO TABLETS BY MOUTH DAILY [facility] ALLOPURINOL 100 mg tablet 0 - 00:00: 00 07-16 00:00 :00 No [id number] TAKE TWO TABLETS BY MOUTH DAILY [facility] ALLOPURINOL 100 mg tablet 0 - 00:00: 00 07-16 00:00 :00 No [id number] TAKE TWO TABLETS BY MOUTH DAILY [facility] ALLOPURINOL 100 mg tablet 06-05 00:00: 00 07-16 00:00 :00 No [id number] TAKE TWO TABLETS BY MOUTH DAILY [facility] ALLOPURINOL 100 mg tablet 0 06-05 00:00: 00 07-16 00:00 :00 No [id number] TAKE TWO TABLETS BY MOUTH DAILY [facility] AMLODIPINE 10 mg tablet 06-05 00:00: 00 07-03 00:00 :00 No [id number] TAKE ONE TABLET BY MOUTH DAILY [facility] ATORVASTATI N 40 mg tablet 05-18 00:00: 00 Yes [id number] TAKE ONE TABLET BY MOUTH AT BEDTIME [facility] NEBIVOLOL 10 mg tablet 0 05-18 00:00: 00 Yes [id number] TAKE ONE TABLET BY MOUTH DAILY [facility] ATORVASTATI N 40 mg tablet 05-18 00:00: 00 Yes [id number] TAKE ONE TABLET BY MOUTH AT BEDTIME [facility] NEBIVOLOL 10 mg tablet 0 05-18 00:00: 00 Yes [id number] TAKE ONE TABLET BY MOUTH DAILY [facility] ATORVASTATI N 40 mg tablet 0 05-18 00:00: 00 Yes [id number] TAKE ONE TABLET BY MOUTH AT BEDTIME [facility] NEBIVOLOL 10 mg tablet 0 05-18 00:00: 00 Yes [id number] TAKE ONE TABLET BY MOUTH DAILY [facility] ATORVASTATI N 40 mg tablet 05-18 00:00: 00 Yes [id number] TAKE ONE TABLET BY MOUTH AT BEDTIME [facility] NEBIVOLOL 10 mg tablet 05-18 00:00: 00 Yes [id number] TAKE ONE TABLET BY MOUTH DAILY [facility] ATORVASTATI N 40 mg tablet 05-18 00:00: 00 Yes [id number] TAKE ONE TABLET BY MOUTH AT BEDTIME [facility] NEBIVOLOL 10 mg tablet 05-18 00:00: 00 Yes [id number] TAKE ONE TABLET BY MOUTH DAILY [facility] ATORVASTATI N 40 mg tablet 05-18 00:00: 00 Yes [id number] TAKE ONE TABLET BY MOUTH AT BEDTIME [facility] ATORVASTATI N 40 mg tablet 05-18 00:00: 00 07-03 00:00 :00 No [id number] TAKE ONE TABLET BY MOUTH AT BEDTIME [facility] NEBIVOLOL 10 mg tablet 05-18 00:00: 00 06-22 00:00 :00 No [id number] TAKE ONE TABLET BY MOUTH DAILY [facility] METFORMIN ER 500 mg 24 hr tablet 2021-05 00:00: 00 Yes [id number] TAKE TWO TABLETS BY MOUTH TWICE A DAY [facility] METFORMIN ER 500 mg 24 hr tablet 2021-05 00:00: 00 Yes [id number] TAKE TWO TABLETS BY MOUTH TWICE A DAY [facility] METFORMIN ER 500 mg 24 hr tablet 2021-05 00:00: 00 Yes [id number] TAKE TWO TABLETS BY MOUTH TWICE A DAY [facility] METFORMIN ER 500 mg 24 hr tablet 2021-05 00:00: 00 Yes [id number] TAKE TWO TABLETS BY MOUTH TWICE A DAY [facility] METFORMIN ER 500 mg 24 hr tablet 2021-05 00:00: 00 Yes [id number] TAKE TWO TABLETS BY MOUTH TWICE A DAY [facility] METFORMIN ER 500 mg 24 hr tablet 2021-05 00:00: 00 Yes [id number] TAKE TWO TABLETS BY MOUTH TWICE A DAY [facility] METFORMIN ER 500 mg 24 hr tablet 2021-05 00:00: 00 Yes [id number] TAKE TWO TABLETS BY MOUTH TWICE A DAY [facility] METFORMIN ER 500 mg 24 hr tablet 2021-05 00:00: 00 Yes [id number] TAKE TWO TABLETS BY MOUTH TWICE A DAY [facility] METFORMIN ER 500 mg 24 hr tablet 2021-05 00:00: 00 Yes [id number] TAKE TWO TABLETS BY MOUTH TWICE A DAY [facility] METFORMIN ER 500 mg 24 hr tablet 2021-05 00:00: 00 Yes [id number] TAKE TWO TABLETS BY MOUTH TWICE A DAY [facility] METFORMIN ER 500 mg 24 hr tablet 2021-05 00:00: 00 Yes [id number] TAKE TWO TABLETS BY MOUTH TWICE A DAY [facility] METFORMIN ER 500 mg 24 hr tablet 2021-05 00:00: 00 Yes [id number] TAKE TWO TABLETS BY MOUTH TWICE A DAY [facility] METFORMIN ER 500 mg 24 hr tablet 2021-05 00:00: 00 Yes [id number] TAKE TWO TABLETS BY MOUTH TWICE A DAY [facility] METFORMIN ER 500 mg 24 hr tablet 2021-05 00:00: 00 Yes [id number] TAKE TWO TABLETS BY MOUTH TWICE A DAY [facility] METFORMIN ER 500 mg 24 hr tablet 2021-05 00:00: 00 Yes [id number] TAKE TWO TABLETS BY MOUTH TWICE A DAY [facility] METFORMIN ER 500 mg 24 hr tablet 2021-05 00:00: 00 Yes [id number] TAKE TWO TABLETS BY MOUTH TWICE A DAY [facility] METFORMIN ER 500 mg 24 hr tablet 2021-05 00:00: 00 Yes [id number] TAKE TWO TABLETS BY MOUTH TWICE A DAY [facility] METFORMIN ER 500 mg 24 hr tablet 2021-05 00:00: 00 Yes [id number] TAKE TWO TABLETS BY MOUTH TWICE A DAY [facility] METFORMIN ER 500 mg 24 hr tablet 2021-05 00:00: 00 Yes [id number] TAKE TWO TABLETS BY MOUTH TWICE A DAY [facility] METFORMIN ER 500 mg 24 hr tablet 2021-05 00:00: 00 Yes [id number] TAKE TWO TABLETS BY MOUTH TWICE A DAY [facility] METFORMIN ER 500 mg 24 hr tablet 2021-05 00:00: 00 Yes [id number] TAKE TWO TABLETS BY MOUTH TWICE A DAY [facility] METFORMIN ER 500 mg 24 hr tablet 2021-05 00:00: 00 Yes [id number] TAKE TWO TABLETS BY MOUTH TWICE A DAY [facility] METFORMIN ER 500 mg 24 hr tablet 2021-05 00:00: 00 Yes [id number] TAKE TWO TABLETS BY MOUTH TWICE A DAY [facility] METFORMIN ER 500 mg 24 hr tablet 2021-05 00:00: 00 Yes [id number] TAKE TWO TABLETS BY MOUTH TWICE A DAY [facility] METFORMIN ER 500 mg 24 hr tablet 2021-05 00:00: 00 Yes [id number] TAKE TWO TABLETS BY MOUTH TWICE A DAY [facility] METFORMIN ER 500 mg 24 hr tablet 2021-05 00:00: 00 Yes [id number] TAKE TWO TABLETS BY MOUTH TWICE A DAY [facility] METFORMIN ER 500 mg 24 hr tablet 2021-05 00:00: 00 Yes [id number] TAKE TWO TABLETS BY MOUTH TWICE A DAY [facility] METFORMIN ER 500 mg 24 hr tablet 2021-05 00:00: 00 Yes [id number] TAKE TWO TABLETS BY MOUTH TWICE A DAY [facility] METFORMIN ER 500 mg 24 hr tablet 2021-05 00:00: 00 Yes [id number] TAKE TWO TABLETS BY MOUTH TWICE A DAY [facility] METFORMIN ER 500 mg 24 hr tablet 2021-05 00:00: 00 Yes [id number] TAKE TWO TABLETS BY MOUTH TWICE A DAY [facility] METFORMIN ER 500 mg 24 hr tablet 2021-05 00:00: 00 Yes [id number] TAKE TWO TABLETS BY MOUTH TWICE A DAY [facility] METFORMIN ER 500 mg 24 hr tablet 2021-05 00:00: 00 Yes [id number] TAKE TWO TABLETS BY MOUTH TWICE A DAY [facility] METFORMIN ER 500 mg 24 hr tablet 2021-05 00:00: 00 Yes [id number] TAKE TWO TABLETS BY MOUTH TWICE A DAY [facility] METFORMIN ER 500 mg 24 hr tablet 2021-05 00:00: 00 Yes [id number] TAKE TWO TABLETS BY MOUTH TWICE A DAY [facility] METFORMIN ER 500 mg 24 hr tablet 2021-05 00:00: 00 Yes [id number] TAKE TWO TABLETS BY MOUTH TWICE A DAY [facility] METFORMIN ER 500 mg 24 hr tablet 2021-05 00:00: 00 Yes [id number] TAKE TWO TABLETS BY MOUTH TWICE A DAY [facility] METFORMIN ER 500 mg 24 hr tablet 2021-05 00:00: 00 Yes [id number] TAKE TWO TABLETS BY MOUTH TWICE A DAY [facility] METFORMIN ER 500 mg 24 hr tablet 2021-05 00:00: 00 09-09 00:00 :00 No [id number] TAKE TWO TABLETS BY MOUTH TWICE A DAY [facility] METFORMIN ER 500 mg 24 hr tablet 2021-05 00:00: 00 09-09 00:00 :00 No [id number] TAKE TWO TABLETS BY MOUTH TWICE A DAY [facility] cephALEXin (KEFLEX) 500 mg capsule 12-15 00:00: 00 12-23 04:59 :00 No [id number] 500mg Take 1 capsule by mouth in the morning and 1 capsule in the evening. Do all this for 7 days. [facility] tamsulosin (FLOMAX) 0.4 mg 24 hr capsule 12-12 00:00: 00 Yes [id number] .4mg Take 1 capsule by mouth in the morning. [facility] tamsulosin (FLOMAX) 0.4 mg 24 hr capsule 12-12 00:00: 00 Yes [id number] .4mg Take 1 capsule by mouth in the morning. [facility] tamsulosin (FLOMAX) 0.4 mg 24 hr capsule 2022-0 7-29 00:00: 00 Yes [id number] .4mg Take 1 capsule by mouth in the morning. [facility] tamsulosin (FLOMAX) 0.4 mg 24 hr capsule 2022-0 7-29 00:00: 00 Yes [id number] .4mg Take 1 capsule by mouth in the morning. [facility] tamsulosin (FLOMAX) 0.4 mg 24 hr capsule 2022-0 7-29 00:00: 00 Yes [id number] .4mg Take 1 capsule by mouth in the morning. [facility] tamsulosin (FLOMAX) 0.4 mg 24 hr capsule 2022-0 7-29 00:00: 00 Yes [id number] .4mg Take 1 capsule by mouth in the morning. [facility] tamsulosin (FLOMAX) 0.4 mg 24 hr capsule 2022-0 7-29 00:00: 00 Yes [id number] .4mg Take 1 capsule by mouth in the morning. [facility] tamsulosin (FLOMAX) 0.4 mg 24 hr capsule 2022-0 7-29 00:00: 00 Yes [id number] .4mg Take 1 capsule by mouth in the morning. [facility] tamsulosin (FLOMAX) 0.4 mg 24 hr capsule 2022-0 7-29 00:00: 00 Yes [id number] .4mg Take 1 capsule by mouth in the morning. [facility] tamsulosin (FLOMAX) 0.4 mg 24 hr capsule 2022-0 7-29 00:00: 00 Yes [id number] .4mg Take 1 capsule by mouth in the morning. [facility] tamsulosin (FLOMAX) 0.4 mg 24 hr capsule 2022-0 7-29 00:00: 00 Yes [id number] .4mg Take 1 capsule by mouth in the morning. [facility] tamsulosin (FLOMAX) 0.4 mg 24 hr capsule 2022-0 7-29 00:00: 00 Yes [id number] .4mg Take 1 capsule by mouth in the morning. [facility] tamsulosin (FLOMAX) 0.4 mg 24 hr capsule 2022-0 7-29 00:00: 00 Yes [id number] .4mg Take 1 capsule by mouth in the morning. [facility] tamsulosin (FLOMAX) 0.4 mg 24 hr capsule 2022-0 7-29 00:00: 00 Yes [id number] .4mg Take 1 capsule by mouth in the morning. [facility] 0.4 mg 24 hr capsule 2022-0 7-29 00:00: 00 Yes [id number] .4mg Take 1 capsule by mouth in the morning. [facility] (FLOMAX) 0.4 mg 24 hr capsule 2-0 7-29 00:00: 00 Yes [id number] .4mg Take 1 capsule by mouth in the morning. [facility] tamsulosin (FLOMAX) 0.4 mg 24 hr capsule 2022-0 7-29 00:00: 00 Yes [id number] .4mg Take 1 capsule by mouth in the morning. [facility] tamsulosin (FLOMAX) 0.4 mg 24 hr capsule 2-0 7-29 00:00: 00 Yes [id number] .4mg Take 1 capsule by mouth in the morning. [facility] tamsulosin (FLOMAX) 0.4 mg 24 hr capsule 2-0 7-29 00:00: 00 Yes [id number] .4mg Take 1 capsule by mouth in the morning. [facility] tamsulosin (FLOMAX) 0.4 mg 24 hr capsule 2022-0 7-29 00:00: 00 Yes [id number] .4mg Take 1 capsule by mouth in the morning. [facility] tamsulosin (FLOMAX) 0.4 mg 24 hr capsule 2022-0 7-29 00:00: 00 Yes [id number] .4mg Take 1 capsule by mouth in the morning. [facility] tamsulosin (FLOMAX) 0.4 mg 24 hr capsule 2022-0 7-29 00:00: 00 Yes [id number] .4mg Take 1 capsule by mouth in the morning. [facility] tamsulosin (FLOMAX) 0.4 mg 24 hr capsule 2022-0 7-29 00:00: 00 Yes [id number] .4mg Take 1 capsule by mouth in the morning. [facility] tamsulosin (FLOMAX) 0.4 mg 24 hr capsule 12-12 00:00: 00 06-08 00:00 :00 No [id number] .4mg Take 1 capsule by mouth in the morning. [facility] ergocalcife rol, vitamin d2, 1,250 mcg (50,000 unit) capsule 10-29 00:00: 00 Yes [id number] Take 1 capsule by mouth weekly. [facility] dapaglifloz in (FARXIGA) 10 mg tablet 10-29 00:00: 00 Yes [id number] 10mg Take 1 tablet by mouth daily. Additional refills per endo [facility] semaglutide (OZEMPIC) 1 mg/dose (4 mg/3 mL) PnIj 10-29 00:00: 00 Yes [id number] 1mg inject 0.75 mL under the skin weekly. [facility] ergocalcife rol, vitamin d2, 1,250 mcg (50,000 unit) capsule 10-29 00:00: 00 Yes [id number] Take 1 capsule by mouth weekly. [facility] dapaglifloz in (FARXIGA) 10 mg tablet 10-29 00:00: 00 Yes [id number] 10mg Take 1 tablet by mouth daily. Additional refills per endo [facility] semaglutide (OZEMPIC) 1 mg/dose (4 mg/3 mL) PnIj 10-29 00:00: 00 Yes [id number] 1mg inject 0.75 mL under the skin weekly. [facility] ergocalcife rol, vitamin d2, 1,250 mcg (50,000 unit) capsule 10-29 00:00: 00 Yes [id number] Take 1 capsule by mouth weekly. [facility] dapaglifloz in (FARXIGA) 10 mg tablet 10-29 00:00: 00 Yes [id number] 10mg Take 1 tablet by mouth daily. Additional refills per endo [facility] semaglutide (OZEMPIC) 1 mg/dose (4 mg/3 mL) PnIj 10-29 00:00: 00 Yes [id number] 1mg inject 0.75 mL under the skin weekly. [facility] ergocalcife rol, vitamin d2, 1,250 mcg (50,000 unit) capsule 10-29 00:00: 00 Yes [id number] Take 1 capsule by mouth weekly. [facility] dapaglifloz in (FARXIGA) 10 mg tablet 10-29 00:00: 00 Yes [id number] 10mg Take 1 tablet by mouth daily. Additional refills per endo [facility] semaglutide (OZEMPIC) 1 mg/dose (4 mg/3 mL) PnIj 10-29 00:00: 00 Yes [id number] 1mg inject 0.75 mL under the skin weekly. [facility] ergocalcife rol, vitamin d2, 1,250 mcg (50,000 unit) capsule 10-29 00:00: 00 Yes [id number] Take 1 capsule by mouth weekly. [facility] dapaglifloz in (FARXIGA) 10 mg tablet 10-29 00:00: 00 Yes [id number] 10mg Take 1 tablet by mouth daily. Additional refills per endo [facility] semaglutide (OZEMPIC) 1 mg/dose (4 mg/3 mL) PnIj 10-29 00:00: 00 Yes [id number] 1mg inject 0.75 mL under the skin weekly. [facility] ergocalcife rol, vitamin d2, 1,250 mcg (50,000 unit) capsule 10-29 00:00: 00 Yes [id number] Take 1 capsule by mouth weekly. [facility] dapaglifloz in (FARXIGA) 10 mg tablet 10-29 00:00: 00 Yes [id number] 10mg Take 1 tablet by mouth daily. Additional refills per endo [facility] semaglutide (OZEMPIC) 1 mg/dose (4 mg/3 mL) PnIj 10-29 00:00: 00 Yes [id number] 1mg inject 0.75 mL under the skin weekly. [facility] ergocalcife rol, vitamin d2, 1,250 mcg (50,000 unit) capsule 0 10-29 00:00: 00 Yes [id number] Take 1 capsule by mouth weekly. [facility] dapaglifloz in (FARXIGA) 10 mg tablet 10-29 00:00: 00 Yes [id number] 10mg Take 1 tablet by mouth daily. Additional refills per endo [facility] semaglutide (OZEMPIC) 1 mg/dose (4 mg/3 mL) PnIj 10-29 00:00: 00 Yes [id number] 1mg inject 0.75 mL under the skin weekly. [facility] ergocalcife rol, vitamin d2, 1,250 mcg (50,000 unit) capsule 10-29 00:00: 00 Yes [id number] Take 1 capsule by mouth weekly. [facility] dapaglifloz in (FARXIGA) 10 mg tablet 10-29 00:00: 00 Yes [id number] 10mg Take 1 tablet by mouth daily. Additional refills per endo [facility] semaglutide (OZEMPIC) 1 mg/dose (4 mg/3 mL) PnIj 0 10-29 00:00: 00 Yes [id number] 1mg inject 0.75 mL under the skin weekly. [facility] ergocalcife rol, vitamin d2, 1,250 mcg (50,000 unit) capsule 10-29 00:00: 00 Yes [id number] Take 1 capsule by mouth weekly. [facility] dapaglifloz in (FARXIGA) 10 mg tablet 10-29 00:00: 00 Yes [id number] 10mg Take 1 tablet by mouth daily. Additional refills per endo [facility] semaglutide (OZEMPIC) 1 mg/dose (4 mg/3 mL) PnIj 10-29 00:00: 00 Yes [id number] 1mg inject 0.75 mL under the skin weekly. [facility] ergocalcife rol, vitamin d2, 1,250 mcg (50,000 unit) capsule 10-29 00:00: 00 Yes [id number] Take 1 capsule by mouth weekly. [facility] dapaglifloz in (FARXIGA) 10 mg tablet 10-29 00:00: 00 Yes [id number] 10mg Take 1 tablet by mouth daily. Additional refills per endo [facility] semaglutide (OZEMPIC) 1 mg/dose (4 mg/3 mL) PnIj 10-29 00:00: 00 Yes [id number] 1mg inject 0.75 mL under the skin weekly. [facility] ergocalcife rol, vitamin d2, 1,250 mcg (50,000 unit) capsule 10-29 00:00: 00 Yes [id number] Take 1 capsule by mouth weekly. [facility] mg tablet 10-29 00:00: 00 Yes [id number] 10mg Take 1 tablet by mouth daily. Additional refills per endo [facility] semaglutide (OZEMPIC) 1 mg/dose (4 mg/3 mL) PnIj 10-29 00:00: 00 Yes [id number] 1mg inject 0.75 mL under the skin weekly. [facility] ergocalcife rol, vitamin d2, 1,250 mcg (50,000 unit) capsule 10-29 00:00: 00 Yes [id number] Take 1 capsule by mouth weekly. [facility] dapaglifloz in (FARXIGA) 10 mg tablet 10-29 00:00: 00 Yes [id number] 10mg Take 1 tablet by mouth daily. Additional refills per endo [facility] semaglutide (OZEMPIC) 1 mg/dose (4 mg/3 mL) PnIj 10-29 00:00: 00 Yes [id number] 1mg inject 0.75 mL under the skin weekly. [facility] ergocalcife rol, vitamin d2, 1,250 mcg (50,000 unit) capsule 10-29 00:00: 00 Yes [id number] Take 1 capsule by mouth weekly. [facility] dapaglifloz in (FARXIGA) 10 mg tablet 10-29 00:00: 00 Yes [id number] 10mg Take 1 tablet by mouth daily. Additional refills per endo [facility] semaglutide (OZEMPIC) 1 mg/dose (4 mg/3 mL) PnIj 10-29 00:00: 00 Yes [id number] 1mg inject 0.75 mL under the skin weekly. [facility] ergocalcife rol, vitamin d2, 1,250 mcg (50,000 unit) capsule 10-29 00:00: 00 Yes [id number] Take 1 capsule by mouth weekly. [facility] dapaglifloz in (FARXIGA) 10 mg tablet 10-29 00:00: 00 Yes [id number] 10mg Take 1 tablet by mouth daily. Additional refills per endo [facility] semaglutide (OZEMPIC) 1 mg/dose (4 mg/3 mL) PnIj 10-29 00:00: 00 Yes [id number] 1mg inject 0.75 mL under the skin weekly. [facility] ergocalcife rol, vitamin d2, 1,250 mcg (50,000 unit) capsule 10-29 00:00: 00 Yes [id number] Take 1 capsule by mouth weekly. [facility] dapaglifloz in (FARXIGA) 10 mg tablet 10-29 00:00: 00 Yes [id number] 10mg Take 1 tablet by mouth daily. Additional refills per endo [facility] semaglutide (OZEMPIC) 1 mg/dose (4 mg/3 mL) PnIj 10-29 00:00: 00 Yes [id number] 1mg inject 0.75 mL under the skin weekly. [facility] ergocalcife rol, vitamin d2, 1,250 mcg (50,000 unit) capsule 10-29 00:00: 00 Yes [id number] Take 1 capsule by mouth weekly. [facility] mg tablet 10-29 00:00: 00 Yes [id number] 10mg Take 1 tablet by mouth daily. Additional refills per endo [facility] semaglutide (OZEMPIC) 1 mg/dose (4 mg/3 mL) PnIj 10-29 00:00: 00 Yes [id number] 1mg inject 0.75 mL under the skin weekly. [facility] ergocalcife rol, vitamin d2, 1,250 mcg (50,000 unit) capsule 10-29 00:00: 00 Yes [id number] Take 1 capsule by mouth weekly. [facility] dapaglifloz in ([facility]) 10 mg tablet 10-29 00:00: 00 Yes [id number] 10mg Take 1 tablet by mouth daily. Additional refills per endo [facility] semaglutide (OZEMPIC) 1 mg/dose (4 mg/3 mL) PnIj 10-29 00:00: 00 Yes [id number] 1mg inject 0.75 mL under the skin weekly. [facility] ergocalcife rol, vitamin d2, 1,250 mcg (50,000 unit) capsule 10-29 00:00: 00 Yes [id number] Take 1 capsule by mouth weekly. [facility] dapaglifloz in ([facility]) 10 mg tablet 10-29 00:00: 00 Yes [id number] 10mg Take 1 tablet by mouth daily. Additional refills per endo [facility] semaglutide (OZEMPIC) 1 mg/dose (4 mg/3 mL) PnIj 10-29 00:00: 00 Yes [id number] 1mg inject 0.75 mL under the skin weekly. [facility] ergocalcife rol, vitamin d2, 1,250 mcg (50,000 unit) capsule 10-29 00:00: 00 Yes [id number] Take 1 capsule by mouth weekly. [facility] tablet 10-29 00:00: 00 Yes [id number] 10mg Take 1 tablet by mouth daily. Additional refills per endo [facility] semaglutide (OZEMPIC) 1 mg/dose (4 mg/3 mL) PnIj 10-29 00:00: 00 Yes [id number] 1mg inject 0.75 mL under the skin weekly. [facility] ergocalcife rol, vitamin d2, 1,250 mcg (50,000 unit) capsule 10-29 00:00: 00 Yes [id number] Take 1 capsule by mouth weekly. [facility] dapaglifloz in ([facility]) 10 mg tablet 10-29 00:00: 00 Yes [id number] 10mg Take 1 tablet by mouth daily. Additional refills per endo [facility] semaglutide (OZEMPIC) 1 mg/dose (4 mg/3 mL) PnIj 10-29 00:00: 00 Yes [id number] 1mg inject 0.75 mL under the skin weekly. [facility] ergocalcife rol, vitamin d2, 1,250 mcg (50,000 unit) capsule 10-29 00:00: 00 Yes [id number] Take 1 capsule by mouth weekly. [facility] 10 mg tablet 10-29 00:00: 00 Yes [id number] 10mg Take 1 tablet by mouth daily. Additional refills per endo [facility] semaglutide (OZEMPIC) 1 mg/dose (4 mg/3 mL) PnIj 10-29 00:00: 00 Yes [id number] 1mg inject 0.75 mL under the skin weekly. [facility] ergocalcife rol, vitamin d2, 1,250 mcg (50,000 unit) capsule 10-29 00:00: 00 Yes [id number] Take 1 capsule by mouth weekly. [facility] mg tablet 10-29 00:00: 00 Yes [id number] 10mg Take 1 tablet by mouth daily. Additional refills per endo [facility] semaglutide (OZEMPIC) 1 mg/dose (4 mg/3 mL) PnIj 10-29 00:00: 00 Yes [id number] 1mg inject 0.75 mL under the skin weekly. [facility] ergocalcife rol, vitamin d2, 1,250 mcg (50,000 unit) capsule 10-29 00:00: 00 Yes [id number] Take 1 capsule by mouth weekly. [facility] dapaglifloz in ([facility]) 10 mg tablet 10-29 00:00: 00 Yes [id number] 10mg Take 1 tablet by mouth daily. Additional refills per endo [facility] semaglutide (OZEMPIC) 1 mg/dose (4 mg/3 mL) PnIj 10-29 00:00: 00 Yes [id number] 1mg inject 0.75 mL under the skin weekly. [facility] ergocalcife rol, vitamin d2, 1,250 mcg (50,000 unit) capsule 10-29 00:00: 00 Yes [id number] Take 1 capsule by mouth weekly. [facility] dapaglifloz in ([facility]) 10 mg tablet 10-29 00:00: 00 Yes [id number] 10mg Take 1 tablet by mouth daily. Additional refills per endo [facility] semaglutide (OZEMPIC) 1 mg/dose (4 mg/3 mL) PnIj 10-29 00:00: 00 Yes [id number] 1mg inject 0.75 mL under the skin weekly. [facility] ergocalcife rol, vitamin d2, 1,250 mcg (50,000 unit) capsule 10-29 00:00: 00 Yes [id number] Take 1 capsule by mouth weekly. [facility] dapaglifloz in ([facility]) 10 mg tablet 10-29 00:00: 00 Yes [id number] 10mg Take 1 tablet by mouth daily. Additional refills per endo [facility] semaglutide (OZEMPIC) 1 mg/dose (4 mg/3 mL) PnIj 10-29 00:00: 00 Yes [id number] 1mg inject 0.75 mL under the skin weekly. [facility] ergocalcife rol, vitamin d2, 1,250 mcg (50,000 unit) capsule 10-29 00:00: 00 Yes [id number] Take 1 capsule by mouth weekly. [facility] dapaglifloz in ([facility]) 10 mg tablet 10-29 00:00: 00 Yes [id number] 10mg Take 1 tablet by mouth daily. Additional refills per endo [facility] ergocalcife rol, vitamin d2, 1,250 mcg (50,000 unit) capsule 10-29 00:00: 00 Yes [id number] Take 1 capsule by mouth weekly. [facility] 10 mg tablet 10-29 00:00: 00 Yes [id number] 10mg Take 1 tablet by mouth daily. Additional refills per endo [facility] ergocalcife rol, vitamin d2, 1,250 mcg (50,000 unit) capsule 10-29 00:00: 00 Yes [id number] Take 1 capsule by mouth weekly. [facility]loz [facility] ([facility] 10 mg tablet 10-29 00:00: 00 Yes [id number] 10mg Take 1 tablet by mouth daily. Additional refills per endo [facility] ergocalcife rol, vitamin d2, 1,250 mcg (50,000 unit) capsule 10-29 00:00: 00 Yes [id number] Take 1 capsule by mouth weekly. [facility]loz [facility] ([facility] 10 mg tablet 10-29 00:00: 00 Yes [id number] 10mg Take 1 tablet by mouth daily. Additional refills per endo [facility] ergocalcife rol, vitamin d2, 1,250 mcg (50,000 unit) capsule 10-29 00:00: 00 Yes [id number] Take 1 capsule by mouth weekly. [facility] dapaglifloz in ([facility]) 10 mg tablet 10-29 00:00: 00 Yes [id number] 10mg Take 1 tablet by mouth daily. Additional refills per endo [facility] ergocalcife rol, vitamin d2, 1,250 mcg (50,000 unit) capsule 10-29 00:00: 00 Yes [id number] Take 1 capsule by mouth weekly. [facility] dapaglifloz in ([facility]) 10 mg tablet 10-29 00:00: 00 Yes [id number] 10mg Take 1 tablet by mouth daily. Additional refills per endo [facility] ergocalcife rol, vitamin d2, 1,250 mcg (50,000 unit) capsule 10-29 00:00: 00 Yes [id number] Take 1 capsule by mouth weekly. [facility] ergocalcife rol, vitamin d2, 1,250 mcg (50,000 unit) capsule 10-29 00:00: 00 Yes [id number] Take 1 capsule by mouth weekly. [facility] ergocalcife rol, vitamin d2, 1,250 mcg (50,000 unit) capsule 10-29 00:00: 00 Yes [id number] Take 1 capsule by mouth weekly. [facility] ergocalcife rol, vitamin d2, 1,250 mcg (50,000 unit) capsule 0 10-29 00:00: 00 Yes [id number] Take 1 capsule by mouth weekly. [facility] ergocalcife rol, vitamin d2, 1,250 mcg (50,000 unit) capsule 2021-0 10-29 00:00: 00 Yes [id number] Take 1 capsule by mouth weekly. [facility] ergocalcife rol, vitamin d2, 1,250 mcg (50,000 unit) capsule 10-29 00:00: 00 Yes [id number] Take 1 capsule by mouth weekly. [facility] ergocalcife rol, vitamin d2, 1,250 mcg (50,000 unit) capsule 10-29 00:00: 00 Yes [id number] Take 1 capsule by mouth weekly. [facility] ergocalcife rol, vitamin d2, 1,250 mcg (50,000 unit) capsule 10-29 00:00: 00 Yes [id number] Take 1 capsule by mouth weekly. [facility] ergocalcife rol, vitamin d2, 1,250 mcg (50,000 unit) capsule 10-29 00:00: 00 Yes [id number] Take 1 capsule by mouth weekly. [facility] ergocalcife rol, vitamin d2, 1,250 mcg (50,000 unit) capsule 10-29 00:00: 00 Yes [id number] Take 1 capsule by mouth weekly. [facility] ergocalcife rol, vitamin d2, 1,250 mcg (50,000 unit) capsule 10-29 00:00: 00 Yes [id number] Take 1 capsule by mouth weekly. [facility] ergocalcife rol, vitamin d2, 1,250 mcg (50,000 unit) capsule 10-29 00:00: 00 Yes [id number] Take 1 capsule by mouth weekly. [facility] ergocalcife rol, vitamin d2, 1,250 mcg (50,000 unit) capsule 10-29 00:00: 00 Yes [id number] Take 1 capsule by mouth weekly. [facility] ergocalcife rol, vitamin d2, 1,250 mcg (50,000 unit) capsule 10-29 00:00: 00 Yes [id number] Take 1 capsule by mouth weekly. [facility] ergocalcife rol, vitamin d2, 1,250 mcg (50,000 unit) capsule 0 10-29 00:00: 00 Yes [id number] Take 1 capsule by mouth weekly. [facility] ergocalcife rol, vitamin d2, 1,250 mcg (50,000 unit) capsule 10-29 00:00: 00 Yes [id number] Take 1 capsule by mouth weekly. [facility] ergocalcife rol, vitamin d2, 1,250 mcg (50,000 unit) capsule 10-29 00:00: 00 Yes [id number] Take 1 capsule by mouth weekly. [facility] ergocalcife rol, vitamin d2, 1,250 mcg (50,000 unit) capsule 10-29 00:00: 00 Yes [id number] Take 1 capsule by mouth weekly. [facility] ergocalcife rol, vitamin d2, 1,250 mcg (50,000 unit) capsule 10-29 00:00: 00 Yes [id number] Take 1 capsule by mouth weekly. [facility] ergocalcife rol, vitamin d2, 1,250 mcg (50,000 unit) capsule 10-29 00:00: 00 Yes [id number] Take 1 capsule by mouth weekly. [facility] ergocalcife rol, vitamin d2, 1,250 mcg (50,000 unit) capsule 10-29 00:00: 00 Yes [id number] Take 1 capsule by mouth weekly. [facility] ergocalcife rol, vitamin d2, 1,250 mcg (50,000 unit) capsule 10-29 00:00: 00 Yes [id number] Take 1 capsule by mouth weekly. [facility] ergocalcife rol, vitamin d2, 1,250 mcg (50,000 unit) capsule 0 10-29 00:00: 00 Yes [id number] Take 1 capsule by mouth weekly. [facility] ergocalcife rol, vitamin d2, 1,250 mcg (50,000 unit) capsule 0 10-29 00:00: 00 Yes [id number] Take 1 capsule by mouth weekly. [facility] ergocalcife rol, vitamin d2, 1,250 mcg (50,000 unit) capsule 2021-0 -15 00:00: 00 Yes [id number] Take 1 capsule by mouth weekly. [facility] ergocalcife rol, vitamin d2, 1,250 mcg (50,000 unit) capsule 2021-0 6-15 00:00: 00 Yes [id number] Take 1 capsule by mouth weekly. [facility] ergocalcife rol, vitamin d2, 1,250 mcg (50,000 unit) capsule 0 15 00:00: 00 Yes [id number] Take 1 capsule by mouth weekly. [facility] ergocalcife rol, vitamin d2, 1,250 mcg (50,000 unit) capsule 0 15 00:00: 00 Yes [id number] Take 1 capsule by mouth weekly. [facility] ergocalcife rol, vitamin d2, 1,250 mcg (50,000 unit) capsule 0 15 00:00: 00 Yes [id number] Take 1 capsule by mouth weekly. [facility] ergocalcife rol, vitamin d2, 1,250 mcg (50,000 unit) capsule 15 00:00: 00 11-12 00:00 :00 No [id number] Take 1 capsule by mouth weekly. [facility] dapaglifloz in (FARXIGA) 10 mg tablet 2021-0 15 00:00: 00 07-16 00:00 :00 No [id number] 10mg Take 1 tablet by mouth daily. Additional refills per endo [facility] dapaglifloz in (FARXIGA) 10 mg tablet 2021-0 6-15 00:00: 00 07-16 00:00 :00 No [id number] 10mg Take 1 tablet by mouth daily. Additional refills per endo [facility] dapaglifloz in (FARXIGA) 10 mg tablet 2021-0 6-15 00:00: 00 07-16 00:00 :00 No [id number] 10mg Take 1 tablet by mouth daily. Additional refills [facility] (XIGA) 10 mg tablet 6-15 00:00: 00 07-16 00:00 :00 No [id number] 10mg Take 1 tablet by mouth daily. Additional refills per endo [facility] dapaglifloz in (FARXIGA) 10 mg tablet 6-15 00:00: 00 07-16 00:00 :00 No [id number] 10mg Take 1 tablet by mouth daily. Additional refills per [facility] semaglutide (OZEMPIC) 1 mg/dose (4 mg/3 mL) PnIj 615 00:00: 00 06-08 00:00 :00 No [id number] 1mg inject 0.75 mL under the skin weekly. [facility] metformin ER 500 mg 24 hr tablet 10-09 00:00: 00 Yes [id number] 1000mg Take 2 tablets by mouth 2 (two) times daily. Additional refills per [facility] metformin ER 500 mg 24 hr tablet 0 10-09 00:00: 00 Yes [id number] 1000mg Take 2 tablets by mouth 2 (two) times daily. Additional refills per [facility] metformin ER 500 mg 24 hr tablet 2021-0 - 00:00: 00 Yes [id number] 1000mg Take 2 tablets by mouth 2 (two) times daily. Additional refills per [facility] metformin ER 500 mg 24 hr tablet 2021-0 -26 00:00: 00 Yes [id number] 1000mg Take 2 tablets by mouth 2 (two) times daily. Additional refills per [facility] metformin ER 500 mg 24 hr tablet 2021-0 -26 00:00: 00 Yes [id number] 1000mg Take 2 tablets by mouth 2 (two) times daily. Additional refills per [facility] metformin ER 500 mg 24 hr tablet 2021-0 -26 00:00: 00 Yes [id number] 1000mg Take 2 tablets by mouth 2 (two) times daily. Additional refills per [facility] metformin ER 500 mg 24 hr tablet 10-09 00:00: 00 Yes [id number] 1000mg Take 2 tablets by mouth 2 (two) times daily. Additional refills per endo [facility] metformin ER 500 mg 24 hr tablet 10-09 00:00: 00 Yes [id number] 1000mg Take 2 tablets by mouth 2 (two) times daily. Additional refills per endo [facility] metformin ER 500 mg 24 hr tablet 10-09 00:00: 00 Yes [id number] 1000mg Take 2 tablets by mouth 2 (two) times daily. Additional refills per endo [facility] metformin ER 500 mg 24 hr tablet 10-09 00:00: 00 Yes [id number] 1000mg Take 2 tablets by mouth 2 (two) times daily. Additional refills per endo [facility] metformin ER 500 mg 24 hr tablet 10-09 00:00: 00 04-07 00:00 :00 No [id number] 1000mg Take 2 tablets by mouth 2 (two) times daily. Additional refills per endo [facility] insulin aspart U-100 (NOVOLOG FLEXPEN U-100 INSULIN) 100 unit/mL (3 mL) injection 07-22 00:00: 00 Yes [id number] 10U inject 10 Units under the skin 3 (three) times daily before meals. [facility] insulin aspart U-100 (NOVOLOG FLEXPEN U-100 INSULIN) 100 unit/mL (3 mL) injection 07-22 00:00: 00 Yes [id number] 10U inject 10 Units under the skin 3 (three) times daily before meals. [facility] insulin aspart U-100 (NOVOLOG FLEXPEN U-100 INSULIN) 100 unit/mL (3 mL) injection 07-22 00:00: 00 Yes [id number] 10U inject 10 Units under the skin 3 (three) times daily before meals. [facility] insulin aspart U-100 (NOVOLOG FLEXPEN U-100 INSULIN) 100 unit/mL (3 mL) injection 3- 00:00: 00 Yes [id number] 10U inject 10 Units under the skin 3 (three) times daily [facility] meals[facility] (NOVOLOG FLEXPEN U-100 INSULIN) 100 unit/mL (3 mL) injection 07-22 00:00: 00 Yes [id number] 10U inject 10 Units under the skin 3 (three) times daily before meals. [facility] insulin aspart U-100 (NOVOLOG FLEXPEN U-100 INSULIN) 100 unit/mL (3 mL) injection 07-22 00:00: 00 Yes [id number] 10U inject 10 Units under the skin 3 (three) times daily before meals. [facility] U-[facility] (NOVOLOG FLEXPEN U-100 INSULIN) 100 unit/mL (3 mL) injection 07-22 00:00: 00 Yes [id number] 10U inject 10 Units under the skin 3 (three) times daily before meals. [facility] (NOVOLOG FLEXPEN U-100 INSULIN) 100 unit/mL (3 mL) injection 07-22 00:00: 00 Yes [id number] 10U inject 10 Units under the skin 3 (three) times daily before meals. [facility] (NOVOLOG FLEXPEN U-100 INSULIN) 100 unit/mL (3 mL) injection 07-22 00:00: 00 Yes [id number] 10U inject 10 Units under the skin 3 (three) times daily before meals. [facility] U-[facility] (NOVOLOG FLEXPEN U-100 INSULIN) 100 unit/mL (3 mL) injection 07-22 00:00: 00 Yes [id number] 10U inject 10 Units under the skin 3 (three) times daily before meals. [facility] U-100 (NOVOLOG FLEXPEN U-100 INSULIN) 100 unit/mL (3 mL) injection 07-22 00:00: 00 Yes [id number] 10U inject 10 Units under the skin 3 (three) times daily before meals. [facility] U-[facility] (NOVOLOG FLEXPEN U-100 INSULIN) 100 unit/mL (3 mL) injection 07-22 00:00: 00 Yes [id number] 10U inject 10 Units under the skin 3 (three) times daily before meals. [facility] U-100 (NOVOLOG FLEXPEN U-100 INSULIN) 100 unit/mL (3 mL) injection 07-22 00:00: 00 Yes [id number] 10U inject 10 Units under the skin 3 (three) times daily before meals. [facility] U-100 (NOVOLOG FLEXPEN U-100 INSULIN) 100 unit/mL (3 mL) injection 07-22 00:00: 00 Yes [id number] 10U inject 10 Units under the skin 3 (three) times daily before meals. [facility] U-100 (NOVOLOG FLEXPEN U-100 INSULIN) 100 unit/mL (3 mL) injection 07-22 00:00: 00 Yes [id number] 10U inject 10 Units under the skin 3 (three) times daily before meals. [facility] U-[facility] (NOVOLOG FLEXPEN U-100 INSULIN) 100 unit/mL (3 mL) injection 07-22 00:00: 00 Yes [id number] 10U inject 10 Units under the skin 3 (three) times daily before meals. [facility] U-100 (NOVOLOG FLEXPEN U-100 INSULIN) 100 unit/mL (3 mL) injection 07-22 00:00: 00 Yes [id number] 10U inject 10 Units under the skin 3 (three) times daily before meals. [facility] U-100 (NOVOLOG FLEXPEN U-100 INSULIN) 100 unit/mL (3 mL) injection 07-22 00:00: 00 Yes [id number] 10U inject 10 Units under the skin 3 (three) times daily before meals. [facility] U-100 (NOVOLOG FLEXPEN U-100 INSULIN) 100 unit/mL (3 mL) injection 07-22 00:00: 00 Yes [id number] 10U inject 10 Units under the skin 3 (three) times daily before meals. [facility] U-100 (NOVOLOG FLEXPEN U-100 INSULIN) 100 unit/mL (3 mL) injection 3 00:00: 00 Yes [id number] 10U inject 10 Units under the skin 3 (three) times daily before meals. [facility] U-100 (NOVOLOG FLEXPEN U-100 INSULIN) 100 unit/mL (3 mL) injection 07-22 00:00: 00 Yes [id number] 10U inject 10 Units under the skin 3 (three) times daily before meals. [facility] U-[facility] (NOVOLOG FLEXPEN U-100 INSULIN) 100 unit/mL (3 mL) injection 07-22 00:00: 00 Yes [id number] 10U inject 10 Units under the skin 3 (three) times daily before meals. [facility] U-100 (NOVOLOG FLEXPEN U-100 INSULIN) 100 unit/mL (3 mL) injection 07-22 00:00: 00 Yes [id number] 10U inject 10 Units under the skin 3 (three) times daily before meals. [facility] U-100 (NOVOLOG FLEXPEN U-100 INSULIN) 100 unit/mL (3 mL) injection 07-22 00:00: 00 Yes [id number] 10U inject 10 Units under the skin 3 (three) times daily before meals. [facility] insulin aspart U-100 (NOVOLOG FLEXPEN U-100 INSULIN) 100 unit/mL (3 mL) injection 07-22 00:00: 00 Yes [id number] 10U inject 10 Units under the skin 3 (three) times daily before meals. [facility] U-100 (NOVOLOG FLEXPEN U-100 INSULIN) 100 unit/mL (3 mL) injection 3- 00:00: 00 Yes [id number] 10U inject 10 Units under the skin 3 (three) times daily before meals. [facility] U-[facility] (NOVOLOG FLEXPEN U-100 INSULIN) 100 unit/mL (3 mL) injection 3 00:00: 00 Yes [id number] 10U inject 10 Units under the skin 3 (three) times daily before meals. [facility] U-[facility] (NOVOLOG FLEXPEN U-100 INSULIN) 100 unit/mL (3 mL) injection 3-08 00:00: 00 Yes [id number] 10U inject 10 Units under the skin 3 (three) times daily before meals. [facility] U-100 (NOVOLOG FLEXPEN U-100 INSULIN) 100 unit/mL (3 mL) injection 3-08 00:00: 00 Yes [id number] 10U inject 10 Units under the skin 3 (three) times daily before meals. [facility] U-[facility] (NOVOLOG FLEXPEN U-100 INSULIN) 100 unit/mL (3 mL) injection 3-08 00:00: 00 Yes [id number] 10U inject 10 Units under the skin 3 (three) times daily before meals. [facility] U-100 (NOVOLOG FLEXPEN U-100 INSULIN) 100 unit/mL (3 mL) injection 3- 00:00: 00 Yes [id number] 10U inject 10 Units under the skin 3 (three) times daily before meals. [facility] U-100 (NOVOLOG FLEXPEN U-100 INSULIN) 100 unit/mL (3 mL) injection 308 00:00: 00 07-16 00:00 :00 No [id number] 10U inject 10 Units under the skin 3 (three) times daily before meals. [facility] U-[facility] (NOVOLOG FLEXPEN U-100 INSULIN) 100 unit/mL (3 mL) injection 3-08 00:00: 00 07-16 00:00 :00 No [id number] 10U inject 10 Units under the skin 3 (three) times daily before meals. [facility] U-[facility] (NOVOLOG FLEXPEN U-100 INSULIN) 100 unit/mL (3 mL) injection 3-08 00:00: 00 07-16 00:00 :00 No [id number] 10U inject 10 Units under the skin 3 (three) times daily before meals. [facility] U-100 (NOVOLOG FLEXPEN U-100 INSULIN) 100 unit/mL (3 mL) injection 2022-0 3-08 00:00: 00 07-16 00:00 :00 No [id number] 10U inject 10 Units under the skin 3 (three) times daily before meals. [facility] insulin aspart U-100 (NOVOLOG FLEXPEN U-100 INSULIN) 100 unit/mL (3 mL) injection 08 00:00: 00 07-16 00:00 :00 No [id number] 10U inject 10 Units under the skin 3 (three) times daily before meals. [facility] nebivoloL (BYSTOLIC) 10 mg tablet 2020-05 00:00: 00 Yes [id number] 10mg Take 1 tablet by mouth daily. [facility] lisinopriL 40 mg tablet 2020-05 00:00: 00 Yes [id number] 40mg Take 1 tablet by mouth daily. [facility] fenofibrate micronized 200 mg capsule 2020-05 00:00: 00 Yes [id number] 200mg Take 1 capsule by mouth daily with breakfast. [facility] atorvastati n 40 mg tablet 2020-05 00:00: 00 Yes [id number] 40mg Take 1 tablet by mouth at bedtime. [facility] amLODIPine 10 mg tablet 2020-05 00:00: 00 Yes [id number] 10mg Take 1 tablet by mouth daily. [facility] allopurinoL 100 mg tablet 2020-05 00:00: 00 Yes [id number] 200mg Take 2 tablets by mouth daily. [facility] nebivoloL (BYSTOLIC) 10 mg tablet 2020-05 00:00: 00 Yes [id number] 10mg Take 1 tablet by mouth daily. [facility] lisinopriL 40 mg tablet 2020-05 00:00: 00 Yes [id number] 40mg Take 1 tablet by mouth daily. [facility] fenofibrate micronized 200 mg capsule 2020-05- 00:00: 00 Yes [id number] 200mg Take 1 capsule by mouth daily with breakfast. [facility] atorvastati n 40 mg tablet 2020-05 00:00: 00 Yes [id number] 40mg Take 1 tablet by mouth at bedtime. [facility] amLODIPine 10 mg tablet 2020-05 00:00: 00 Yes [id number] 10mg Take 1 tablet by mouth daily. [facility] allopurinoL 100 mg tablet 2020-05 00:00: 00 Yes [id number] 200mg Take 2 tablets by mouth daily. [facility] nebivoloL (BYSTOLIC) 10 mg tablet 2020-05 00:00: 00 Yes [id number] 10mg Take 1 tablet by mouth daily. [facility] lisinopriL 40 mg tablet 2020-05 00:00: 00 Yes [id number] 40mg Take 1 tablet by mouth daily. [facility] fenofibrate micronized 200 mg capsule 2020-05 00:00: 00 Yes [id number] 200mg Take 1 capsule by mouth daily with breakfast. [facility] atorvastati n 40 mg tablet 2020-05 00:00: 00 Yes [id number] 40mg Take 1 tablet by mouth at bedtime. [facility] amLODIPine 10 mg tablet 2020-05 00:00: 00 Yes [id number] 10mg Take 1 tablet by mouth daily. [facility] allopurinoL 100 mg tablet 2020-05 00:00: 00 Yes [id number] 200mg Take 2 tablets by mouth daily. [facility] nebivoloL (BYSTOLIC) 10 mg tablet 2020-05 00:00: 00 Yes [id number] 10mg Take 1 tablet by mouth daily. [facility] lisinopriL 40 mg tablet 2020-05 00:00: 00 Yes [id number] 40mg Take 1 tablet by mouth daily. [facility] fenofibrate micronized 200 mg capsule 2020-05 00:00: 00 Yes [id number] 200mg Take 1 capsule by mouth daily with breakfast. [facility] atorvastati n 40 mg tablet 2020-05 00:00: 00 Yes [id number] 40mg Take 1 tablet by mouth at bedtime. [facility] amLODIPine 10 mg tablet 2020-05 00:00: 00 Yes [id number] 10mg Take 1 tablet by mouth daily. [facility] allopurinoL 100 mg tablet 2020-05 00:00: 00 Yes [id number] 200mg Take 2 tablets by mouth daily. [facility] nebivoloL (BYSTOLIC) 10 mg tablet 2020-05 00:00: 00 Yes [id number] 10mg Take 1 tablet by mouth daily. [facility] lisinopriL 40 mg tablet 2020-05 00:00: 00 Yes [id number] 40mg Take 1 tablet by mouth daily. [facility] fenofibrate micronized 200 mg capsule 2020-05 00:00: 00 Yes [id number] 200mg Take 1 capsule by mouth daily with breakfast. [facility] atorvastati n 40 mg tablet 2020-05 00:00: 00 Yes [id number] 40mg Take 1 tablet by mouth at bedtime. [facility] amLODIPine 10 mg tablet 2020-05 00:00: 00 Yes [id number] 10mg Take 1 tablet by mouth daily. [facility] allopurinoL 100 mg tablet 2020-05 00:00: 00 Yes [id number] 200mg Take 2 tablets by mouth daily. [facility] nebivoloL (BYSTOLIC) 10 mg tablet 2020-05 00:00: 00 Yes [id number] 10mg Take 1 tablet by mouth daily. [facility] lisinopriL 40 mg tablet 2020-05 00:00: 00 Yes [id number] 40mg Take 1 tablet by mouth daily. [facility] fenofibrate micronized 200 mg capsule 2020-05 00:00: 00 Yes [id number] 200mg Take 1 capsule by mouth daily with breakfast. [facility] atorvastati n 40 mg tablet 2020-05 00:00: 00 Yes [id number] 40mg Take 1 tablet by mouth at bedtime. [facility] amLODIPine 10 mg tablet 2020-05 00:00: 00 Yes [id number] 10mg Take 1 tablet by mouth daily. [facility] allopurinoL 100 mg tablet 2020-05 00:00: 00 Yes [id number] 200mg Take 2 tablets by mouth daily. [facility] nebivoloL (BYSTOLIC) 10 mg tablet 2020-05 00:00: 00 Yes [id number] 10mg Take 1 tablet by mouth daily. [facility] lisinopriL 40 mg tablet 2020-05 00:00: 00 Yes [id number] 40mg Take 1 tablet by mouth daily. [facility] fenofibrate micronized 200 mg capsule 2020-05 00:00: 00 Yes [id number] 200mg Take 1 capsule by mouth daily with breakfast. [facility] atorvastati n 40 mg tablet 2020-05 00:00: 00 Yes [id number] 40mg Take 1 tablet by mouth at bedtime. [facility] amLODIPine 10 mg tablet 2020-05 00:00: 00 Yes [id number] 10mg Take 1 tablet by mouth daily. [facility] allopurinoL 100 mg tablet 2020-05 00:00: 00 Yes [id number] 200mg Take 2 tablets by mouth daily. [facility] nebivoloL (BYSTOLIC) 10 mg tablet 2020-05 00:00: 00 Yes [id number] 10mg Take 1 tablet by mouth daily. [facility] lisinopriL 40 mg tablet 2020-05 00:00: 00 Yes [id number] 40mg Take 1 tablet by mouth daily. [facility] fenofibrate micronized 200 mg capsule 2020-05 00:00: 00 Yes [id number] 200mg Take 1 capsule by mouth daily with breakfast. [facility] atorvastati n 40 mg tablet 2020-05 00:00: 00 Yes [id number] 40mg Take 1 tablet by mouth at bedtime. [facility] amLODIPine 10 mg tablet 2020-05 00:00: 00 Yes [id number] 10mg Take 1 tablet by mouth daily. [facility] allopurinoL 100 mg tablet 2020-05 00:00: 00 Yes [id number] 200mg Take 2 tablets by mouth daily. [facility] nebivoloL (BYSTOLIC) 10 mg tablet 2020-05 00:00: 00 Yes [id number] 10mg Take 1 tablet by mouth daily. [facility] lisinopriL 40 mg tablet 2020-05 00:00: 00 Yes [id number] 40mg Take 1 tablet by mouth daily. [facility] fenofibrate micronized 200 mg capsule 2020-05 00:00: 00 Yes [id number] 200mg Take 1 capsule by mouth daily with breakfast. [facility] atorvastati n 40 mg tablet 2020-05 00:00: 00 Yes [id number] 40mg Take 1 tablet by mouth at bedtime. [facility] amLODIPine 10 mg tablet 2020-05 00:00: 00 Yes [id number] 10mg Take 1 tablet by mouth daily. [facility] allopurinoL 100 mg tablet 2020-05 00:00: 00 Yes [id number] 200mg Take 2 tablets by mouth daily. [facility] nebivoloL (BYSTOLIC) 10 mg tablet 2020-05 00:00: 00 Yes [id number] 10mg Take 1 tablet by mouth daily. [facility] lisinopriL 40 mg tablet 2020-05 00:00: 00 Yes [id number] 40mg Take 1 tablet by mouth daily. [facility] fenofibrate micronized 200 mg capsule 2020-05 00:00: 00 Yes [id number] 200mg Take 1 capsule by mouth daily with breakfast. [facility] atorvastati n 40 mg tablet 2020-05 00:00: 00 Yes [id number] 40mg Take 1 tablet by mouth at bedtime. [facility] amLODIPine 10 mg tablet 2020-05 00:00: 00 Yes [id number] 10mg Take 1 tablet by mouth daily. [facility] allopurinoL 100 mg tablet 2020-05 00:00: 00 Yes [id number] 200mg Take 2 tablets by mouth daily. [facility] nebivoloL (BYSTOLIC) 10 mg tablet 2020-05 00:00: 00 Yes [id number] 10mg Take 1 tablet by mouth daily. [facility] lisinopriL 40 mg tablet 2020-05 00:00: 00 Yes [id number] 40mg Take 1 tablet by mouth daily. [facility] fenofibrate micronized 200 mg capsule 2020-05 00:00: 00 Yes [id number] 200mg Take 1 capsule by mouth daily with breakfast. [facility] atorvastati n 40 mg tablet 2020-05 00:00: 00 Yes [id number] 40mg Take 1 tablet by mouth at bedtime. [facility] amLODIPine 10 mg tablet 2020-05 00:00: 00 Yes [id number] 10mg Take 1 tablet by mouth daily. [facility] allopurinoL 100 mg tablet 2020-05 00:00: 00 Yes [id number] 200mg Take 2 tablets by mouth daily. [facility] nebivoloL (BYSTOLIC) 10 mg tablet 2020-05 00:00: 00 Yes [id number] 10mg Take 1 tablet by mouth daily. [facility] lisinopriL 40 mg tablet 2020-05 00:00: 00 Yes [id number] 40mg Take 1 tablet by mouth daily. [facility] fenofibrate micronized 200 mg capsule 2020-05 00:00: 00 Yes [id number] 200mg Take 1 capsule by mouth daily with breakfast. [facility] atorvastati n 40 mg tablet 2020-05 00:00: 00 Yes [id number] 40mg Take 1 tablet by mouth at bedtime. [facility] amLODIPine 10 mg tablet 2020-05 00:00: 00 Yes [id number] 10mg Take 1 tablet by mouth daily. [facility] allopurinoL 100 mg tablet 2020-05 00:00: 00 Yes [id number] 200mg Take 2 tablets by mouth daily. [facility] nebivoloL (BYSTOLIC) 10 mg tablet 2020-05 00:00: 00 Yes [id number] 10mg Take 1 tablet by mouth daily. [facility] lisinopriL 40 mg tablet 2020-05 00:00: 00 Yes [id number] 40mg Take 1 tablet by mouth daily. [facility] fenofibrate micronized 200 mg capsule 2020-05 00:00: 00 Yes [id number] 200mg Take 1 capsule by mouth daily with breakfast. [facility] atorvastati n 40 mg tablet 2020-05 00:00: 00 Yes [id number] 40mg Take 1 tablet by mouth at bedtime. [facility] amLODIPine 10 mg tablet 2020-05 00:00: 00 Yes [id number] 10mg Take 1 tablet by mouth daily. [facility] allopurinoL 100 mg tablet 2020-05 00:00: 00 Yes [id number] 200mg Take 2 tablets by mouth daily. [facility] nebivoloL (BYSTOLIC) 10 mg tablet 2020-05 00:00: 00 Yes [id number] 10mg Take 1 tablet by mouth daily. [facility] lisinopriL 40 mg tablet 2020-05 00:00: 00 Yes [id number] 40mg Take 1 tablet by mouth daily. [facility] fenofibrate micronized 200 mg capsule 2020-05 00:00: 00 Yes [id number] 200mg Take 1 capsule by mouth daily with breakfast. [facility] atorvastati n 40 mg tablet 2020-05 00:00: 00 Yes [id number] 40mg Take 1 tablet by mouth at bedtime. [facility] amLODIPine 10 mg tablet 2020-05 00:00: 00 Yes [id number] 10mg Take 1 tablet by mouth daily. [facility] allopurinoL 100 mg tablet 2020-05 00:00: 00 Yes [id number] 200mg Take 2 tablets by mouth daily. [facility] nebivoloL (BYSTOLIC) 10 mg tablet 2020-05 00:00: 00 Yes [id number] 10mg Take 1 tablet by mouth daily. [facility] lisinopriL 40 mg tablet 2020-05 00:00: 00 Yes [id number] 40mg Take 1 tablet by mouth daily. [facility] fenofibrate micronized 200 mg capsule 2020-05 00:00: 00 Yes [id number] 200mg Take 1 capsule by mouth daily with breakfast. [facility] atorvastati n 40 mg tablet 2020-05 00:00: 00 Yes [id number] 40mg Take 1 tablet by mouth at bedtime. [facility] amLODIPine 10 mg tablet 2020-05 00:00: 00 Yes [id number] 10mg Take 1 tablet by mouth daily. [facility] allopurinoL 100 mg tablet 2020-05 00:00: 00 Yes [id number] 200mg Take 2 tablets by mouth daily. [facility] nebivoloL (BYSTOLIC) 10 mg tablet 2020-05 00:00: 00 Yes [id number] 10mg Take 1 tablet by mouth daily. [facility] lisinopriL 40 mg tablet 2020-05 00:00: 00 Yes [id number] 40mg Take 1 tablet by mouth daily. [facility] fenofibrate micronized 200 mg capsule 2020-05 00:00: 00 Yes [id number] 200mg Take 1 capsule by mouth daily with breakfast. [facility] atorvastati n 40 mg tablet 2020-05 00:00: 00 Yes [id number] 40mg Take 1 tablet by mouth at bedtime. [facility] amLODIPine 10 mg tablet 2020-05 00:00: 00 Yes [id number] 10mg Take 1 tablet by mouth daily. [facility] allopurinoL 100 mg tablet 2020-05 00:00: 00 Yes [id number] 200mg Take 2 tablets by mouth daily. [facility] nebivoloL (BYSTOLIC) 10 mg tablet 2020-05 00:00: 00 Yes [id number] 10mg Take 1 tablet by mouth daily. [facility] lisinopriL 40 mg tablet 2020-05 00:00: 00 Yes [id number] 40mg Take 1 tablet by mouth daily. [facility] fenofibrate micronized 200 mg capsule 2020-05 00:00: 00 Yes [id number] 200mg Take 1 capsule by mouth daily with breakfast. [facility] atorvastati n 40 mg tablet 2020-05 00:00: 00 Yes [id number] 40mg Take 1 tablet by mouth at bedtime. [facility] amLODIPine 10 mg tablet 2020-05 00:00: 00 Yes [id number] 10mg Take 1 tablet by mouth daily. [facility] allopurinoL 100 mg tablet 2020-05 00:00: 00 Yes [id number] 200mg Take 2 tablets by mouth daily. [facility] nebivoloL (BYSTOLIC) 10 mg tablet 2020-05 00:00: 00 Yes [id number] 10mg Take 1 tablet by mouth daily. [facility] lisinopriL 40 mg tablet 2020-05 00:00: 00 Yes [id number] 40mg Take 1 tablet by mouth daily. [facility] fenofibrate micronized 200 mg capsule 2020-05 00:00: 00 Yes [id number] 200mg Take 1 capsule by mouth daily with breakfast. [facility] atorvastati n 40 mg tablet 2020-05 00:00: 00 Yes [id number] 40mg Take 1 tablet by mouth at bedtime. [facility] amLODIPine 10 mg tablet 2020-05 00:00: 00 Yes [id number] 10mg Take 1 tablet by mouth daily. [facility] allopurinoL 100 mg tablet 2020-05 00:00: 00 Yes [id number] 200mg Take 2 tablets by mouth daily. [facility] nebivoloL (BYSTOLIC) 10 mg tablet 2020-05 00:00: 00 Yes [id number] 10mg Take 1 tablet by mouth daily. [facility] lisinopriL 40 mg tablet 2020-05 00:00: 00 Yes [id number] 40mg Take 1 tablet by mouth daily. [facility] fenofibrate micronized 200 mg capsule 2020-05 00:00: 00 Yes [id number] 200mg Take 1 capsule by mouth daily with breakfast. [facility] atorvastati n 40 mg tablet 2020-05 00:00: 00 Yes [id number] 40mg Take 1 tablet by mouth at bedtime. [facility] amLODIPine 10 mg tablet 2020-05 00:00: 00 Yes [id number] 10mg Take 1 tablet by mouth daily. [facility] allopurinoL 100 mg tablet 2020-05 00:00: 00 Yes [id number] 200mg Take 2 tablets by mouth daily. [facility] nebivoloL (BYSTOLIC) 10 mg tablet 2020-05 00:00: 00 Yes [id number] 10mg Take 1 tablet by mouth daily. [facility] lisinopriL 40 mg tablet 2020-05 00:00: 00 Yes [id number] 40mg Take 1 tablet by mouth daily. [facility] fenofibrate micronized 200 mg capsule 2020-05 00:00: 00 Yes [id number] 200mg Take 1 capsule by mouth daily with breakfast. [facility] atorvastati n 40 mg tablet 2020-05 00:00: 00 Yes [id number] 40mg Take 1 tablet by mouth at bedtime. [facility] amLODIPine 10 mg tablet 2020-05 00:00: 00 Yes [id number] 10mg Take 1 tablet by mouth daily. [facility] allopurinoL 100 mg tablet 2020-05 00:00: 00 Yes [id number] 200mg Take 2 tablets by mouth daily. [facility] lisinopriL 40 mg tablet 2020-05 00:00: 00 Yes [id number] 40mg Take 1 tablet by mouth daily. [facility] fenofibrate micronized 200 mg capsule 2020-05-15 00:00: 00 Yes [id number] 200mg Take 1 capsule by mouth daily with breakfast. [facility] amLODIPine 10 mg tablet 2020-05 2-15 00:00: 00 Yes [id number] 10mg Take 1 tablet by mouth daily. [facility] allopurinoL 100 mg tablet 2020-05-15 00:00: 00 Yes [id number] 200mg Take 2 tablets by mouth daily. [facility] lisinopriL 40 mg tablet 2020-05 00:00: 00 Yes [id number] 40mg Take 1 tablet by mouth daily. [facility] fenofibrate micronized 200 mg capsule 2020-05 00:00: 00 Yes [id number] 200mg Take 1 capsule by mouth daily with breakfast. [facility] amLODIPine 10 mg tablet 2020-05- 00:00: 00 Yes [id number] 10mg Take 1 tablet by mouth daily. [facility] allopurinoL 100 mg tablet 2020-05 00:00: 00 Yes [id number] 200mg Take 2 tablets by mouth daily. [facility] lisinopriL 40 mg tablet 2020-05 00:00: 00 Yes [id number] 40mg Take 1 tablet by mouth daily. [facility] fenofibrate micronized 200 mg capsule 2020-05- 00:00: 00 Yes [id number] 200mg Take 1 capsule by mouth daily with breakfast. [facility] lisinopriL 40 mg tablet 2020-05-15 00:00: 00 Yes [id number] 40mg Take 1 tablet by mouth daily. [facility] fenofibrate micronized 200 mg capsule 2020-05-15 00:00: 00 Yes [id number] 200mg Take 1 capsule by mouth daily with breakfast. [facility] lisinopriL 40 mg tablet 2020-05 2-15 00:00: 00 Yes [id number] 40mg Take 1 tablet by mouth daily. [facility] fenofibrate micronized 200 mg capsule 2020-05 2-15 00:00: 00 Yes [id number] 200mg Take 1 capsule by mouth daily with breakfast. [facility] lisinopriL 40 mg tablet 2020-05 2-15 00:00: 00 Yes [id number] 40mg Take 1 tablet by mouth daily. [facility] fenofibrate micronized 200 mg capsule 2020-05 2- 00:00: 00 Yes [id number] 200mg Take 1 capsule by mouth daily with breakfast. [facility] lisinopriL 40 mg tablet 2020-05 2-15 00:00: 00 Yes [id number] 40mg Take 1 tablet by mouth daily. [facility] fenofibrate micronized 200 mg capsule 2020-05- 00:00: 00 Yes [id number] 200mg Take 1 capsule by mouth daily with breakfast. [facility] lisinopriL 40 mg tablet 2020-05 00:00: 00 Yes [id number] 40mg Take 1 tablet by mouth daily. [facility] fenofibrate micronized 200 mg capsule 2020-05 00:00: 00 Yes [id number] 200mg Take 1 capsule by mouth daily with breakfast. [facility] lisinopriL 40 mg tablet 2020-05 00:00: 00 Yes [id number] 40mg Take 1 tablet by mouth daily. [facility] fenofibrate micronized 200 mg capsule 2020-05- 00:00: 00 Yes [id number] 200mg Take 1 capsule by mouth daily with breakfast. [facility] lisinopriL 40 mg tablet 2020-05-15 00:00: 00 Yes [id number] 40mg Take 1 tablet by mouth daily. [facility] fenofibrate micronized 200 mg capsule 2020-05 2-15 00:00: 00 Yes [id number] 200mg Take 1 capsule by mouth daily with breakfast. [facility] lisinopriL 40 mg tablet 2020-05 2-15 00:00: 00 Yes [id number] 40mg Take 1 tablet by mouth daily. [facility] fenofibrate micronized 200 mg capsule 2020-05 2-15 00:00: 00 Yes [id number] 200mg Take 1 capsule by mouth daily with breakfast. [facility] lisinopriL 40 mg tablet 2020-05 2-15 00:00: 00 Yes [id number] 40mg Take 1 tablet by mouth daily. [facility] fenofibrate micronized 200 mg capsule 2020-05 00:00: 00 Yes [id number] 200mg Take 1 capsule by mouth daily with breakfast. [facility] lisinopriL 40 mg tablet 2020-0515 00:00: 00 Yes [id number] 40mg Take 1 tablet by mouth daily. [facility] fenofibrate micronized 200 mg capsule 2020-05 00:00: 00 Yes [id number] 200mg Take 1 capsule by mouth daily with breakfast. [facility] lisinopriL 40 mg tablet 2020-05 00:00: 00 Yes [id number] 40mg Take 1 tablet by mouth daily. [facility] fenofibrate micronized 200 mg capsule 2020-05 00:00: 00 Yes [id number] 200mg Take 1 capsule by mouth daily with breakfast. [facility] lisinopriL 40 mg tablet 2020-05 00:00: 00 Yes [id number] 40mg Take 1 tablet by mouth daily. [facility] fenofibrate micronized 200 mg capsule 2020-05 00:00: 00 Yes [id number] 200mg Take 1 capsule by mouth daily with breakfast. [facility] lisinopriL 40 mg tablet 2020-0515 00:00: 00 Yes [id number] 40mg Take 1 tablet by mouth daily. [facility] fenofibrate micronized 200 mg capsule 2020-0515 00:00: 00 Yes [id number] 200mg Take 1 capsule by mouth daily with breakfast. [facility] lisinopriL 40 mg tablet 2020-05 2-15 00:00: 00 Yes [id number] 40mg Take 1 tablet by mouth daily. [facility] fenofibrate micronized 200 mg capsule 2021-1 2-15 00:00: 00 Yes [id number] 200mg Take 1 capsule by mouth daily with breakfast. [facility] lisinopriL 40 mg tablet 2020-05 2-15 00:00: 00 Yes [id number] 40mg Take 1 tablet by mouth daily. [facility] fenofibrate micronized 200 mg capsule 2020-05 2-15 00:00: 00 Yes [id number] 200mg Take 1 capsule by mouth daily with breakfast. [facility] lisinopriL 40 mg tablet 2020-05 2-15 00:00: 00 Yes [id number] 40mg Take 1 tablet by mouth daily. [facility] fenofibrate micronized 200 mg capsule 2020-05 2-15 00:00: 00 Yes [id number] 200mg Take 1 capsule by mouth daily with breakfast. [facility] lisinopriL 40 mg tablet 2020-05 2-15 00:00: 00 Yes [id number] 40mg Take 1 tablet by mouth daily. [facility] fenofibrate micronized 200 mg capsule 2020-05 2-15 00:00: 00 Yes [id number] 200mg Take 1 capsule by mouth daily with breakfast. [facility] lisinopriL 40 mg tablet 2020-05 215 00:00: 00 Yes [id number] 40mg Take 1 tablet by mouth daily. [facility] fenofibrate micronized 200 mg capsule 2020-05 2-15 00:00: 00 Yes [id number] 200mg Take 1 capsule by mouth daily with breakfast. [facility] lisinopriL 40 mg tablet 2020-05 2-15 00:00: 00 Yes [id number] 40mg Take 1 tablet by mouth daily. [facility] fenofibrate micronized 200 mg capsule 2020-05 2-15 00:00: 00 Yes [id number] 200mg Take 1 capsule by mouth daily with breakfast. [facility] lisinopriL 40 mg tablet 2020-05 2-15 00:00: 00 Yes [id number] 40mg Take 1 tablet by mouth daily. [facility] fenofibrate micronized 200 mg capsule 2020-05 2-15 00:00: 00 Yes [id number] 200mg Take 1 capsule by mouth daily with breakfast. [facility] fenofibrate micronized 200 mg capsule 2020-05 2-15 00:00: 00 Yes [id number] 200mg Take 1 capsule by mouth daily with breakfast. [facility] fenofibrate micronized 200 mg capsule 2020-05 2-15 00:00: 00 Yes [id number] 200mg Take 1 capsule by mouth daily with breakfast. [facility] fenofibrate micronized 200 mg capsule 2020-05 2-15 00:00: 00 Yes [id number] 200mg Take 1 capsule by mouth daily with breakfast. [facility] fenofibrate micronized 200 mg capsule 2020-05 2-15 00:00: 00 Yes [id number] 200mg Take 1 capsule by mouth daily with breakfast. [facility] fenofibrate micronized 200 mg capsule 2020-05 2-15 00:00: 00 Yes [id number] 200mg Take 1 capsule by mouth daily with breakfast. [facility] fenofibrate micronized 200 mg capsule 2020-05 2-15 00:00: 00 Yes [id number] 200mg Take 1 capsule by mouth daily with breakfast. [facility] fenofibrate micronized 200 mg capsule 2020-05 2-15 00:00: 00 Yes [id number] 200mg Take 1 capsule by mouth daily with breakfast. [facility] fenofibrate micronized 200 mg capsule 2020-05 2-15 00:00: 00 Yes [id number] 200mg Take 1 capsule by mouth daily with breakfast. [facility] fenofibrate micronized 200 mg capsule 2020-05 2-15 00:00: 00 Yes [id number] 200mg Take 1 capsule by mouth daily with breakfast. [facility] fenofibrate micronized 200 mg capsule 2020- 2-15 00:00: 00 Yes [id number] 200mg Take 1 capsule by mouth daily with breakfast. [facility] fenofibrate micronized 200 mg capsule 2020-05 2-15 00:00: 00 Yes [id number] 200mg Take 1 capsule by mouth daily with breakfast. [facility] fenofibrate micronized 200 mg capsule 2020-05 2-15 00:00: 00 Yes [id number] 200mg Take 1 capsule by mouth daily with breakfast. [facility] fenofibrate micronized 200 mg capsule 2020-05 2-15 00:00: 00 Yes [id number] 200mg Take 1 capsule by mouth daily with breakfast. [facility] fenofibrate micronized 200 mg capsule 2020-05 2- 00:00: 00 Yes [id number] 200mg Take 1 capsule by mouth daily with breakfast. [facility] fenofibrate micronized 200 mg capsule 2020-05 215 00:00: 00 Yes [id number] 200mg Take 1 capsule by mouth daily with breakfast. [facility] fenofibrate micronized 200 mg capsule 2020-05 00:00: 00 Yes [id number] 200mg Take 1 capsule by mouth daily with breakfast. [facility] fenofibrate micronized 200 mg capsule 2020-05 00:00: 00 Yes [id number] 200mg Take 1 capsule by mouth daily with breakfast. [facility] fenofibrate micronized 200 mg capsule 2020-05 00:00: 00 Yes [id number] 200mg Take 1 capsule by mouth daily with breakfast. [facility] fenofibrate micronized 200 mg capsule 2020-05 2 00:00: 00 11-18 00:00 :00 No [id number] 200mg Take 1 capsule by mouth daily with breakfast. [facility] fenofibrate micronized 200 mg capsule 2020-05 00:00: 00 11-18 00:00 :00 No [id number] 200mg Take 1 capsule by mouth daily with breakfast. [facility] lisinopriL 40 mg tablet 2020-05 2 00:00: 00 08-26 00:00 :00 No [id number] 40mg Take 1 tablet by mouth daily. [facility] amLODIPine 10 mg tablet 2020-05 2-15 00:00: 00 06-05 00:00 :00 No [id number] 10mg Take 1 tablet by mouth daily. [facility] allopurinoL 100 mg tablet 2020-05 00:00: 00 06-05 00:00 :00 No [id number] 200mg Take 2 tablets by mouth daily. [facility] nebivoloL (BYSTOLIC) 10 mg tablet 2020-05 00:00: 00 05-18 00:00 :00 No [id number] 10mg Take 1 tablet by mouth daily. [facility] atorvastati n 40 mg tablet 2020-05 00:00: 00 05-18 00:00 :00 No [id number] 40mg Take 1 tablet by mouth at bedtime. [facility] insulin degludec (TRESIBA FLEXTOUCH U-200) 200 unit/mL (3 mL) [facility] 2020-05 00:00: 00 Yes [id number] 80U inject 80 Units under the skin 2 (two) times daily. [facility] insulin degludec (TRESIBA FLEXTOUCH U-200) 200 unit/mL (3 mL) [facility] 2020-05 00:00: 00 Yes [id number] 80U inject 80 Units under the skin 2 (two) times daily. [facility] insulin degludec (TRESIBA FLEXTOUCH U-200) 200 unit/mL (3 mL) [facility] 2020-05 00:00: 00 Yes [id number] 80U inject 80 Units under the skin 2 (two) times daily. [facility] insulin degludec (TRESIBA FLEXTOUCH U-200) 200 unit/mL (3 mL) [facility] 2020-05 00:00: 00 Yes [id number] 80U inject 80 Units under the skin 2 (two) times daily. [facility] insulin degludec (TRESIBA FLEXTOUCH U-200) 200 unit/mL (3 mL) [facility] 2020-05 00:00: 00 Yes [id number] 80U inject 80 Units under the skin 2 (two) times daily. [facility] insulin degludec (TRESIBA FLEXTOUCH U-200) 200 unit/mL (3 mL) [facility] 2020-05 00:00: 00 Yes [id number] 80U inject 80 Units under the skin 2 (two) times daily. [facility] (TRESIBA FLEXTOUCH U-200) 200 unit/mL (3 mL) [facility] 2020-05 00:00: 00 Yes [id number] 80U inject 80 Units under the skin 2 (two) times daily. [facility]ec (TRESIBA FLEXTOUCH U-200) 200 unit/mL (3 mL) [facility] 2020-05 00:00: 00 Yes [id number] 80U inject 80 Units under the skin 2 (two) times daily. [facility] insulin degludec (TRESIBA FLEXTOUCH U-200) 200 unit/mL (3 mL) [facility] 2020-05 00:00: 00 Yes [id number] 80U inject 80 Units under the skin 2 (two) times daily. [facility] de[facility]ec (TRESIBA FLEXTOUCH U-200) 200 unit/mL (3 mL) [facility] 2020-05 00:00: 00 Yes [id number] 80U inject 80 Units under the skin 2 (two) times daily. [facility] insulin degludec (TRESIBA FLEXTOUCH U-200) 200 unit/mL (3 mL) [facility] 2020-05 00:00: 00 Yes [id number] 80U inject 80 Units under the skin 2 (two) times daily. [facility]ec (TRESIBA FLEXTOUCH U-200) 200 unit/mL (3 mL) [facility] 2020-05 00:00: 00 Yes [id number] 80U inject 80 Units under the skin 2 (two) times daily. [facility] de[facility]udec (TRESIBA FLEXTOUCH U-200) 200 unit/mL (3 mL) [facility] 2020-05 00:00: 00 Yes [id number] 80U inject 80 Units under the skin 2 (two) times daily. [facility]udec (TRESIBA FLEXTOUCH U-200) 200 unit/mL (3 mL) [facility] 2020-05 2 00:00: 00 Yes [id number] 80U inject 80 Units under the skin 2 (two) times daily. [facility] insulin degludec (TRESIBA FLEXTOUCH U-200) 200 unit/mL (3 mL) [facility] 2020-05 2 00:00: 00 Yes [id number] 80U inject 80 Units under the skin 2 (two) times daily. [facility] insulin degludec (TRESIBA FLEXTOUCH U-200) 200 unit/mL (3 mL) In 2020-05 2 00:00: 00 Yes [id number] 80U inject 80 Units under the skin 2 (two) times daily. [facility] insulin degludec (TRESIBA FLEXTOUCH U-200) 200 unit/mL (3 mL) [facility] 2020-05 00:00: 00 Yes [id number] 80U inject 80 Units under the skin 2 (two) times daily. [facility] insulin degludec (TRESIBA FLEXTOUCH U-200) 200 unit/mL (3 mL) In 2020-05 00:00: 00 Yes [id number] 80U inject 80 Units under the skin 2 (two) times daily. [facility] insulin degludec (TRESIBA FLEXTOUCH U-200) 200 unit/mL (3 mL) [facility] 2020-05 2 00:00: 00 Yes [id number] 80U inject 80 Units under the skin 2 (two) times daily. [facility] insulin degludec (TRESIBA FLEXTOUCH U-200) 200 unit/mL (3 mL) In 2020-05 2 00:00: 00 Yes [id number] 80U inject 80 Units under the skin 2 (two) times daily. [facility] insulin degludec (TRESIBA FLEXTOUCH U-200) 200 unit/mL (3 mL) In 2020-05 2 00:00: 00 Yes [id number] 80U inject 80 Units under the skin 2 (two) times daily. [facility] insulin degludec (TRESIBA FLEXTOUCH U-200) 200 unit/mL (3 mL) [facility] 2020-05 00:00: 00 Yes [id number] 80U inject 80 Units under the skin 2 (two) times daily. [facility]udec (TRESIBA FLEXTOUCH U-200) 200 unit/mL (3 mL) [facility] 2020-05 00:00: 00 Yes [id number] 80U inject 80 Units under the skin 2 (two) times daily. [facility] insulin degludec (TRESIBA FLEXTOUCH U-200) 200 unit/mL (3 mL) [facility] 2020-05 00:00: 00 Yes [id number] 80U inject 80 Units under the skin 2 (two) times daily. [facility] insulin degludec (TRESIBA FLEXTOUCH U-200) 200 unit/mL (3 mL) [facility] 2020-05 00:00: 00 Yes [id number] 80U inject 80 Units under the skin 2 (two) times daily. [facility] insulin degludec (TRESIBA FLEXTOUCH U-200) 200 unit/mL (3 mL) In 2020-05 00:00: 00 Yes [id number] 80U inject 80 Units under the skin 2 (two) times daily. [facility] insulin degludec (TRESIBA FLEXTOUCH U-200) 200 unit/mL (3 mL) [facility] 2020-05 2 00:00: 00 Yes [id number] 80U inject 80 Units under the skin 2 (two) times daily. [facility] insulin degludec (TRESIBA FLEXTOUCH U-200) 200 unit/mL (3 mL) In 2020-05 00:00: 00 Yes [id number] 80U inject 80 Units under the skin 2 (two) times daily. [facility] insulin degludec (TRESIBA FLEXTOUCH U-200) 200 unit/mL (3 mL) In 2020-05 00:00: 00 Yes [id number] 80U inject 80 Units under the skin 2 (two) times daily. [facility] insulin degludec (TRESIBA FLEXTOUCH U-200) 200 unit/mL (3 mL) [facility] 2020-05 00:00: 00 Yes [id number] 80U inject 80 Units under the skin 2 (two) times daily. [facility] insulin degludec (TRESIBA FLEXTOUCH U-200) 200 unit/mL (3 mL) [facility] 2020-05 00:00: 00 Yes [id number] 80U inject 80 Units under the skin 2 (two) times daily. [facility] insulin degludec (TRESIBA FLEXTOUCH U-200) 200 unit/mL (3 mL) [facility] 2020-05 00:00: 00 07-16 00:00 :00 No [id number] 80U inject 80 Units under the skin 2 (two) times daily. [facility] insulin degludec (TRESIBA FLEXTOUCH U-200) 200 unit/mL (3 mL) [facility] 2020-05 00:00: 00 07-16 00:00 :00 No [id number] 80U inject 80 Units under the skin 2 (two) times daily. [facility] insulin degludec (TRESIBA FLEXTOUCH U-200) 200 unit/mL (3 mL) [facility] 2020-05 00:00: 00 07-16 00:00 :00 No [id number] 80U inject 80 Units under the skin 2 (two) times daily. [facility] insulin degludec (TRESIBA FLEXTOUCH U-200) 200 unit/mL (3 mL) [facility] 2020-05 00:00: 00 07-16 00:00 :00 No [id number] 80U inject 80 Units under the skin 2 (two) times daily. [facility] insulin degludec (TRESIBA FLEXTOUCH U-200) 200 unit/mL (3 mL) [facility] 2020-05 00:00: 00 07-16 00:00 :00 No [id number] 80U inject 80 Units under the skin 2 (two) times daily. [facility] Insulin [place], Disposable, (TRENA PEN NEEDLE) 32 gauge x 5/32" Ndle 2020-0 8-31 00:00: 00 Yes [id number] USE THREE TIMES A DAY DIRECTED [facility] Insulin [place], Disposable, (TRENA PEN NEEDLE) 32 gauge x 5/32" Ndle 2020-0 8-31 00:00: 00 Yes [id number] USE THREE TIMES A DAY DIRECTED [facility] Insulin [place], Disposable, (TRENA PEN NEEDLE) 32 gauge x 5/32" Ndle 2020-0 8-31 00:00: 00 Yes [id number] USE THREE TIMES A DAY DIRECTED [facility] Insulin [place], Disposable, (TRENA PEN NEEDLE) 32 gauge x 5/32" Ndle 2020-0 8-31 00:00: 00 Yes [id number] USE THREE TIMES A DAY DIRECTED [facility] Insulin Fel[place], Disposable, (TRENA PEN NEEDLE) 32 gauge x 5/32" Ndle 2020-0 8-31 00:00: 00 Yes [id number] USE THREE TIMES A DAY DIRECTED [facility] Insulin Fel[place], Disposable, (TRENA PEN NEEDLE) 32 gauge x 5/32" Ndle 2020-0 8-31 00:00: 00 Yes [id number] USE THREE TIMES A DAY DIRECTED [facility] Insulin Fel[place], Disposable, (TRENA PEN NEEDLE) 32 gauge x 5/32" Ndle 2020-0 8-31 00:00: 00 Yes [id number] USE THREE TIMES A DAY DIRECTED [facility] Insulin [place], Disposable, (TRENA PEN NEEDLE) 32 gauge x 5/32" Ndle 2020-0 8-31 00:00: 00 Yes [id number] USE THREE TIMES A DAY DIRECTED [facility] Insulin Fel[place], Disposable, (TRENA PEN NEEDLE) 32 gauge x 5/32" Ndle 2020-0 8-31 00:00: 00 Yes [id number] USE THREE TIMES A DAY DIRECTED [facility] Insulin Fel[place], Disposable, (TRENA PEN NEEDLE) 32 gauge x 5/32" Ndle 2020-0 8-31 00:00: 00 Yes [id number] USE THREE TIMES A DAY DIRECTED [facility] Insulin Fel[place], Disposable, (TRENA PEN NEEDLE) 32 gauge x 5/32" Ndle 1-0 8-31 00:00: 00 Yes [id number] USE THREE TIMES A DAY DIRECTED [facility] Insulin Fel[place], Disposable, (TRENA PEN NEEDLE) 32 gauge x 5/32" Ndle 1-0 8-31 00:00: 00 Yes [id number] USE THREE TIMES A DAY DIRECTED [facility] Insulin Felton, Disposable, (TRENA PEN NEEDLE) 32 gauge x 5/32" Ndle 2020-0 8-31 00:00: 00 Yes [id number] USE THREE TIMES A DAY DIRECTED [facility] Insulin Fel[place], Disposable, (TRENA PEN NEEDLE) 32 gauge x 5/32" Ndle 2020-0 8-31 00:00: 00 Yes [id number] USE THREE TIMES A DAY DIRECTED [facility] Insulin Felton, Disposable, (TRENA PEN NEEDLE) 32 gauge x 5/32" Ndle 2020-0 8-31 00:00: 00 Yes [id number] USE THREE TIMES A DAY DIRECTED [facility] Insulin Fel[place], Disposable, (TRENA PEN NEEDLE) 32 gauge x 5/32" Ndle 2020-0 8-31 00:00: 00 Yes [id number] USE THREE TIMES A DAY DIRECTED [facility] Insulin Fel[place], Disposable, (TRENA PEN NEEDLE) 32 gauge x 5/32" Ndle 2020-0 8-31 00:00: 00 Yes [id number] USE THREE TIMES A DAY DIRECTED [facility] Insulin Fel[place], Disposable, (TRENA PEN NEEDLE) 32 gauge x 5/32" Ndle 2020-0 8-31 00:00: 00 Yes [id number] USE THREE TIMES A DAY DIRECTED [facility] Insulin Fel[place], Disposable, (TRENA PEN NEEDLE) 32 gauge x 5/32" Ndle 2020-0 8-31 00:00: 00 Yes [id number] USE THREE TIMES A DAY DIRECTED [facility] Insulin Fel[place], Disposable, (TRENA PEN NEEDLE) 32 gauge x 5/32" Ndle 1-0 8-31 00:00: 00 Yes [id number] USE THREE TIMES A DAY DIRECTED [facility] Insulin Felton, Disposable, (TRENA PEN NEEDLE) 32 gauge x 5/32" Ndle 1-0 8-31 00:00: 00 Yes [id number] USE THREE TIMES A DAY DIRECTED [facility] Insulin Fel[place], Disposable, (TRENA PEN NEEDLE) 32 gauge x 5/32" Ndle 1-0 8-31 00:00: 00 Yes [id number] USE THREE TIMES A DAY DIRECTED [facility] Insulin Fel[place], Disposable, (TRENA PEN NEEDLE) 32 gauge x 5/32" Ndle 2020-0 8-31 00:00: 00 Yes [id number] USE THREE TIMES A DAY DIRECTED [facility] Insulin Fel[place], Disposable, (TRENA PEN NEEDLE) 32 gauge x 5/32" Ndle 2020-0 8-31 00:00: 00 Yes [id number] USE THREE TIMES A DAY DIRECTED [facility] Insulin Felton, Disposable, (TRENA PEN NEEDLE) 32 gauge x 5/32" Ndle 2020-0 8-31 00:00: 00 Yes [id number] USE THREE TIMES A DAY DIRECTED [facility] Insulin Felton, Disposable, (TRENA PEN NEEDLE) 32 gauge x 5/32" Ndle 2020-0 8-31 00:00: 00 Yes [id number] USE THREE TIMES A DAY DIRECTED [facility] Insulin [place], Disposable, (TRENA PEN NEEDLE) 32 gauge x 5/32" Ndle 2020-0 8-31 00:00: 00 Yes [id number] USE THREE TIMES A DAY DIRECTED [facility] Insulin Felton, Disposable, (TRENA PEN NEEDLE) 32 gauge x 5/32" Ndle 2020-0 8-31 00:00: 00 Yes [id number] USE THREE TIMES A DAY DIRECTED [facility] Insulin Fel[place], Disposable, (TRENA PEN NEEDLE) 32 gauge x 5/32" Ndle 1-0 8-31 00:00: 00 Yes [id number] USE THREE TIMES A DAY DIRECTED [facility] Insulin Fel[place], Disposable, (TRENA PEN NEEDLE) 32 gauge x 5/32" Ndle 1-0 8-31 00:00: 00 Yes [id number] USE THREE TIMES A DAY DIRECTED [facility] Insulin Fel[place], Disposable, (TRENA PEN NEEDLE) 32 gauge x 5/32" Ndle 2021-0 8-31 00:00: 00 Yes [id number] USE THREE TIMES A DAY DIRECTED [facility] Insulin Fel[place], Disposable, (TRENA PEN NEEDLE) 32 gauge x 5/32" Ndle 2020-0 8-31 00:00: 00 Yes [id number] USE THREE TIMES A DAY DIRECTED [facility] Insulin Fel[place], Disposable, (TRENA PEN NEEDLE) 32 gauge x 5/32" Ndle 1-0 8-31 00:00: 00 Yes [id number] USE THREE TIMES A DAY DIRECTED [facility] Insulin Fel[place], Disposable, (TRENA PEN NEEDLE) 32 gauge x 5/32" Ndle 1-0 8-31 00:00: 00 Yes [id number] USE THREE TIMES A DAY DIRECTED [facility] Insulin [place], Disposable, (TRENA PEN NEEDLE) 32 gauge x 5/32" Ndle 2020-0 8-31 00:00: 00 Yes [id number] USE THREE TIMES A DAY DIRECTED [facility] Insulin [place], Disposable, (TRENA PEN NEEDLE) 32 gauge x 5/32" Ndle 2020-0 8-31 00:00: 00 Yes [id number] USE THREE TIMES A DAY DIRECTED [facility] Insulin [place], Disposable, (TRENA PEN NEEDLE) 32 gauge x 5/32" Ndle 2020-0 8-31 00:00: 00 Yes [id number] USE THREE TIMES A DAY DIRECTED [facility] Insulin [place], Disposable, (TRENA PEN NEEDLE) 32 gauge x 5/32" Ndle 2020-0 8-31 00:00: 00 Yes [id number] USE THREE TIMES A DAY DIRECTED [facility] Insulin [place], Disposable, (TRENA PEN NEEDLE) 32 gauge x 5/32" Ndle 1-0 8-31 00:00: 00 Yes [id number] USE THREE TIMES A DAY DIRECTED [facility] Insulin [place], Disposable, (TRENA PEN NEEDLE) 32 gauge x 5/32" Ndle 1-0 8-31 00:00: 00 Yes [id number] USE THREE TIMES A DAY DIRECTED [facility] Insulin [place], Disposable, (TRENA PEN NEEDLE) 32 gauge x 5/32" Ndle 2020-0 8-31 00:00: 00 Yes [id number] USE THREE TIMES A DAY DIRECTED [facility] Insulin [place], Disposable, (TRENA PEN NEEDLE) 32 gauge x 5/32" Ndle 2020-0 8-31 00:00: 00 Yes [id number] USE THREE TIMES A DAY DIRECTED [facility] Insulin [place], Disposable, (TRENA PEN NEEDLE) 32 gauge x 5/32" Ndle 2020-0 8-31 00:00: 00 Yes [id number] USE THREE TIMES A DAY DIRECTED [facility] Insulin [place], Disposable, (TRENA PEN NEEDLE) 32 gauge x 5/32" Ndle 2020-0 8-31 00:00: 00 Yes [id number] USE THREE TIMES A DAY DIRECTED [facility] Insulin [place], Disposable, (TRENA PEN NEEDLE) 32 gauge x 5/32" Ndle 1-0 8-31 00:00: 00 Yes [id number] USE THREE TIMES A DAY DIRECTED [facility] Insulin Fel[place], Disposable, (TRENA PEN NEEDLE) 32 gauge x 5/32" Ndle 2020-0 8-31 00:00: 00 Yes [id number] USE THREE TIMES A DAY DIRECTED [facility] Insulin Fel[place], Disposable, (TRENA PEN NEEDLE) 32 gauge x 5/32" Ndle 2020-0 8-31 00:00: 00 Yes [id number] USE THREE TIMES A DAY DIRECTED [facility] Insulin [place], Disposable, (TRENA PEN NEEDLE) 32 gauge x 5/32" Ndle 2020-0 8-31 00:00: 00 Yes [id number] USE THREE TIMES A DAY DIRECTED [facility] Insulin [place], Disposable, (TRENA PEN NEEDLE) 32 gauge x 5/32" Ndle 1-0 8-31 00:00: 00 Yes [id number] USE THREE TIMES A DAY DIRECTED [facility] Insulin [place], Disposable, (TRENA PEN NEEDLE) 32 gauge x 5/32" Ndle 2020-0 8-31 00:00: 00 Yes [id number] USE THREE TIMES A DAY DIRECTED [facility] Insulin [place], Disposable, (TRENA PEN NEEDLE) 32 gauge x 5/32" Ndle 1-0 8-31 00:00: 00 Yes [id number] USE THREE TIMES A DAY DIRECTED [facility] Insulin [place], Disposable, (TRENA PEN NEEDLE) 32 gauge x 5/32" Ndle 1-0 8-31 00:00: 00 Yes [id number] USE THREE TIMES A DAY DIRECTED [facility] Insulin [place], Disposable, (TRENA PEN NEEDLE) 32 gauge x 5/32" Ndle 2020-0 8-31 00:00: 00 Yes [id number] USE THREE TIMES A DAY DIRECTED [facility] Insulin [place], Disposable, (TRENA PEN NEEDLE) 32 gauge x 5/32" Ndle 2020-0 8-31 00:00: 00 Yes [id number] USE THREE TIMES A DAY DIRECTED [facility] Insulin [place], Disposable, (TRENA PEN NEEDLE) 32 gauge x 5/32" Ndle 2020-0 8-31 00:00: 00 Yes [id number] USE THREE TIMES A DAY DIRECTED [facility] Insulin [place], Disposable, (TRENA PEN NEEDLE) 32 gauge x 5/32" Ndle 2020-0 8-31 00:00: 00 Yes [id number] USE THREE TIMES A DAY DIRECTED [facility] Insulin [place], Disposable, (TRENA PEN NEEDLE) 32 gauge x 5/32" Ndle 2020-0 8-31 00:00: 00 Yes [id number] USE THREE TIMES A DAY DIRECTED [facility] Insulin [place], Disposable, (TRENA PEN NEEDLE) 32 gauge x 5/32" Ndle 2020-0 8-31 00:00: 00 Yes [id number] USE THREE TIMES A DAY DIRECTED [facility] Insulin [place], Disposable, (TRENA PEN NEEDLE) 32 gauge x 5/32" Ndle 2020-0 8-31 00:00: 00 Yes [id number] USE THREE TIMES A DAY DIRECTED [facility] Insulin [place], Disposable, (TRENA PEN NEEDLE) 32 gauge x 5/32" Ndle 2020-0 8-31 00:00: 00 Yes [id number] USE THREE TIMES A DAY DIRECTED [facility] Insulin [place], Disposable, (TRENA PEN NEEDLE) 32 gauge x 5/32" Ndle 2020-0 8-31 00:00: 00 Yes [id number] USE THREE TIMES A DAY DIRECTED [facility] Insulin Fel[place], Disposable, (TRENA PEN NEEDLE) 32 gauge x 5/32" Ndle 1-0 8-31 00:00: 00 Yes [id number] USE THREE TIMES A DAY DIRECTED [facility] Insulin [place], Disposable, (TRENA PEN NEEDLE) 32 gauge x 5/32" Ndle 1-0 8-31 00:00: 00 Yes [id number] USE THREE TIMES A DAY DIRECTED [facility] Insulin [place], Disposable, (TRENA PEN NEEDLE) 32 gauge x 5/32" Ndle 2020-0 8-31 00:00: 00 Yes [id number] USE THREE TIMES A DAY DIRECTED [facility] Insulin [place], Disposable, (TRENA PEN NEEDLE) 32 gauge x 5/32" Ndle 2020-0 8-31 00:00: 00 Yes [id number] USE THREE TIMES A DAY DIRECTED [facility] Insulin [place], Disposable, (TRENA PEN NEEDLE) 32 gauge x 5/32" Ndle 2020-0 8-31 00:00: 00 Yes [id number] USE THREE TIMES A DAY DIRECTED [facility] Insulin [place], Disposable, (TRENA PEN NEEDLE) 32 gauge x 5/32" Ndle 2020-0 8-31 00:00: 00 Yes [id number] USE THREE TIMES A DAY DIRECTED [facility] Insulin [place], Disposable, (TRENA PEN NEEDLE) 32 gauge x 5/32" Ndle 2020-0 8-31 00:00: 00 Yes [id number] USE THREE TIMES A DAY DIRECTED [facility] Insulin [place], Disposable, (TRENA PEN NEEDLE) 32 gauge x 5/32" Ndle 2020-0 8-31 00:00: 00 Yes [id number] USE THREE TIMES A DAY DIRECTED [facility] Insulin [place], Disposable, (TRENA PEN NEEDLE) 32 gauge x 5/32" Ndle 1-0 8-31 00:00: 00 Yes [id number] USE THREE TIMES A DAY DIRECTED [facility] Insulin [place], Disposable, (TRENA PEN NEEDLE) 32 gauge x 5/32" Ndle 1-0 8-31 00:00: 00 Yes [id number] USE THREE TIMES A DAY DIRECTED [facility] Insulin [place], Disposable, (TRENA PEN NEEDLE) 32 gauge x 5/32" Ndle 1-0 8-31 00:00: 00 Yes [id number] USE THREE TIMES A DAY DIRECTED [facility] Insulin [place], Disposable, (TRENA PEN NEEDLE) 32 gauge x 5/32" Ndle 2020-0 8-31 00:00: 00 Yes [id number] USE THREE TIMES A DAY DIRECTED [facility] Insulin [place], Disposable, (TRENA PEN NEEDLE) 32 gauge x 5/32" Ndle 2020-0 8-31 00:00: 00 Yes [id number] USE THREE TIMES A DAY DIRECTED [facility] Insulin [place], Disposable, (TRENA PEN NEEDLE) 32 gauge x 5/32" Ndle 2020-0 8-31 00:00: 00 Yes [id number] USE THREE TIMES A DAY DIRECTED [facility] Insulin Fel[place], Disposable, (TRENA PEN NEEDLE) 32 gauge x 5/32" Ndle 2020-0 8-31 00:00: 00 Yes [id number] USE THREE TIMES A DAY DIRECTED [facility] Insulin [place], Disposable, (TRENA PEN NEEDLE) 32 gauge x 5/32" Ndle 2020-0 8-31 00:00: 00 Yes [id number] USE THREE TIMES A DAY DIRECTED [facility] Insulin [place], Disposable, (TRENA PEN NEEDLE) 32 gauge x 5/32" Ndle 2020-0 8-31 00:00: 00 Yes [id number] USE THREE TIMES A DAY DIRECTED [facility] Insulin [place], Disposable, (TRENA PEN NEEDLE) 32 gauge x 5/32" Ndle 2020-0 8-31 00:00: 00 Yes [id number] USE THREE TIMES A DAY DIRECTED [facility] Insulin [place], Disposable, (TRENA PEN NEEDLE) 32 gauge x 5/32" Ndle 2020-0 8-31 00:00: 00 Yes [id number] USE THREE TIMES A DAY DIRECTED [facility] Insulin [place], Disposable, (TRENA PEN NEEDLE) 32 gauge x 5/32" Ndle 2020-0 8-31 00:00: 00 Yes [id number] USE THREE TIMES A DAY DIRECTED [facility] Insulin [place], Disposable, (TRENA PEN NEEDLE) 32 gauge x 5/32" Ndle 2021-0 8-31 00:00: 00 Yes [id number] USE THREE TIMES A DAY DIRECTED [facility] Insulin [place], Disposable, (TRENA PEN NEEDLE) 32 gauge x 5/32" Ndle 2020-0 8-31 00:00: 00 Yes [id number] USE THREE TIMES A DAY DIRECTED [facility] Insulin [place], Disposable, (TRENA PEN NEEDLE) 32 gauge x 5/32" Ndle 2020-0 8-31 00:00: 00 Yes [id number] USE THREE TIMES A DAY DIRECTED [facility] Insulin [place], Disposable, (TRENA PEN NEEDLE) 32 gauge x 5/32" Ndle 2020-0 8-31 00:00: 00 Yes [id number] USE THREE TIMES A DAY DIRECTED [facility] Insulin [place], Disposable, (TRENA PEN NEEDLE) 32 gauge x 5/32" Ndle 2020-0 8-31 00:00: 00 Yes [id number] USE THREE TIMES A DAY DIRECTED [facility] Insulin [place], Disposable, (TRENA PEN NEEDLE) 32 gauge x 5/32" Ndle 2020-0 8-31 00:00: 00 Yes [id number] USE THREE TIMES A DAY DIRECTED [facility] Insulin [place], Disposable, (TRENA PEN NEEDLE) 32 gauge x 5/32" Ndle 2020-0 8-31 00:00: 00 Yes [id number] USE THREE TIMES A DAY DIRECTED [facility] Insulin [place], Disposable, (TRENA PEN NEEDLE) 32 gauge x 5/32" Ndle 2020-0 8-31 00:00: 00 Yes [id number] USE THREE TIMES A DAY DIRECTED [facility] Insulin [place], Disposable, (TRENA PEN NEEDLE) 32 gauge x 5/32" Ndle 2020-0 8-31 00:00: 00 Yes [id number] USE THREE TIMES A DAY DIRECTED [facility] Insulin [place], Disposable, (TRENA PEN NEEDLE) 32 gauge x 5/32" Ndle 1-0 8-31 00:00: 00 Yes [id number] USE THREE TIMES A DAY DIRECTED [facility] Insulin [place], Disposable, (TRENA PEN NEEDLE) 32 gauge x 5/32" Ndle 2020-0 8-31 00:00: 00 Yes [id number] USE THREE TIMES A DAY DIRECTED [facility] Insulin [place], Disposable, (TRENA PEN NEEDLE) 32 gauge x 5/32" Ndle 1-0 8-31 00:00: 00 Yes [id number] USE THREE TIMES A DAY DIRECTED [facility] Insulin [place], Disposable, (TRENA PEN NEEDLE) 32 gauge x 5/32" Ndle 2020-0 8-31 00:00: 00 Yes [id number] USE THREE TIMES A DAY DIRECTED [facility] Insulin [place], Disposable, (TRENA PEN NEEDLE) 32 gauge x 5/32" Ndle 2020-0 8-31 00:00: 00 Yes [id number] USE THREE TIMES A DAY DIRECTED [facility] Insulin [place], Disposable, (TRENA PEN NEEDLE) 32 gauge x 5/32" Ndle 1-0 8-31 00:00: 00 Yes [id number] USE THREE TIMES A DAY DIRECTED [facility] Insulin [place], Disposable, (TRENA PEN NEEDLE) 32 gauge x 5/32" Ndle 2020-0 8-31 00:00: 00 Yes [id number] USE THREE TIMES A DAY DIRECTED [facility] Insulin [place], Disposable, (TRENA PEN NEEDLE) 32 gauge x 5/32" Ndle 2020-0 8-31 00:00: 00 Yes [id number] USE THREE TIMES A DAY DIRECTED [facility] Insulin [place], Disposable, (TRENA PEN NEEDLE) 32 gauge x 5/32" Ndle 2020-0 8-31 00:00: 00 Yes [id number] USE THREE TIMES A DAY DIRECTED [facility] Insulin [place], Disposable, (TRENA PEN NEEDLE) 32 gauge x 5/32" Ndle 1-0 8-31 00:00: 00 Yes [id number] USE THREE TIMES A DAY DIRECTED [facility] Insulin [place], Disposable, (TRENA PEN NEEDLE) 32 gauge x 5/32" Ndle 1-0 8-31 00:00: 00 Yes [id number] USE THREE TIMES A DAY DIRECTED [facility] Insulin [place], Disposable, (TRENA PEN NEEDLE) 32 gauge x 5/32" Ndle 1-0 8-31 00:00: 00 Yes [id number] USE THREE TIMES A DAY DIRECTED [facility] Insulin [place], Disposable, (TRENA PEN NEEDLE) 32 gauge x 5/32" Ndle 1-0 8-31 00:00: 00 Yes [id number] USE THREE TIMES A DAY DIRECTED [facility] Insulin [place], Disposable, (TRENA PEN NEEDLE) 32 gauge x 5/32" Ndle 1-0 8-31 00:00: 00 Yes [id number] USE THREE TIMES A DAY DIRECTED [facility] Insulin [place], Disposable, (TRENA PEN NEEDLE) 32 gauge x 5/32" Ndle 2020-0 8-31 00:00: 00 Yes [id number] USE THREE TIMES A DAY DIRECTED [facility] Insulin [place], Disposable, (TRENA PEN NEEDLE) 32 gauge x 5/32" Ndle 2020-0 8-31 00:00: 00 Yes [id number] USE THREE TIMES A DAY DIRECTED [facility] Insulin [place], Disposable, (TRENA PEN NEEDLE) 32 gauge x 5/32" Ndle 2020-0 8-31 00:00: 00 Yes [id number] USE THREE TIMES A DAY DIRECTED [facility] Insulin [place], Disposable, (TRENA PEN NEEDLE) 32 gauge x 5/32" Ndle 2020-0 8-31 00:00: 00 Yes [id number] USE THREE TIMES A DAY DIRECTED [facility] Insulin [place], Disposable, (TRENA PEN NEEDLE) 32 gauge x 5/32" Ndle 2020-0 8-31 00:00: 00 Yes [id number] USE THREE TIMES A DAY DIRECTED [facility] Insulin [place], Disposable, (TRENA PEN NEEDLE) 32 gauge x 5/32" Ndle 2020-0 8-31 00:00: 00 Yes [id number] USE THREE TIMES A DAY DIRECTED [facility] Insulin [place], Disposable, (TRENA PEN NEEDLE) 32 gauge x 5/32" Ndle 2020-0 8-31 00:00: 00 Yes [id number] USE THREE TIMES A DAY DIRECTED [facility] Insulin [place], Disposable, (TRENA PEN NEEDLE) 32 gauge x 5/32" Ndle 2020-0 8-31 00:00: 00 Yes [id number] USE THREE TIMES A DAY DIRECTED [facility] Insulin [place], Disposable, (TRENA PEN NEEDLE) 32 gauge x 5/32" Ndle 2020-0 8-31 00:00: 00 Yes [id number] USE THREE TIMES A DAY DIRECTED [facility] Insulin [place], Disposable, (TRENA PEN NEEDLE) 32 gauge x 5/32" Ndle 2020-0 8-31 00:00: 00 Yes [id number] USE THREE TIMES A DAY DIRECTED [facility] Insulin [place], Disposable, (TRENA PEN NEEDLE) 32 gauge x 5/32" Ndle 0 8-31 00:00: 00 Yes [id number] USE THREE TIMES A DAY DIRECTED [facility] Insulin [place], Disposable, (TRENA PEN NEEDLE) 32 gauge x 5/32" Ndle 8-31 00:00: 00 Yes [id number] USE THREE TIMES A DAY DIRECTED [facility] Insulin [place], Disposable, (TRENA PEN NEEDLE) 32 gauge x 5/32" Ndle 8-31 00:00: 00 Yes [id number] USE THREE TIMES A DAY DIRECTED [facility] Insulin [place], Disposable, (TRENA PEN NEEDLE) 32 gauge x 5/32" Ndle 8-31 00:00: 00 Yes [id number] USE THREE TIMES A DAY DIRECTED [facility] Insulin [place], Disposable, (TRENA PEN NEEDLE) 32 gauge x 5/32" Ndle 8-31 00:00: 00 Yes [id number] USE THREE TIMES A DAY DIRECTED [facility] Insulin [place], Disposable, (TRENA PEN NEEDLE) 32 gauge x 5/32" Ndle 0 8-31 00:00: 00 07-29 00:00 :00 No [id number] USE THREE TIMES A DAY DIRECTED [facility] Insulin [place], Disposable, (TRENA PEN NEEDLE) 32 gauge x 5/32" Ndle 8-31 00:00: 00 07-29 00:00 :00 No [id number] USE THREE TIMES A DAY DIRECTED [facility] needles, insulin disposable (BD ULTRAFINE ORIG PEN NEEDLES MISC) 6- 15:31: 35 Yes [facility] needles, insulin disposable (BD ULTRAFINE ORIG PEN NEEDLES MISC) 10-15 15:31: 35 Yes [facility] needles, insulin disposable (BD ULTRAFINE ORIG PEN NEEDLES MISC) 10-15 15:31: 35 Yes [facility] needles, insulin disposable (BD ULTRAFINE ORIG PEN NEEDLES MISC) 10-15 15:31: 35 Yes [facility] needles, insulin disposable (BD ULTRAFINE ORIG PEN NEEDLES MISC) 10-15 15:31: 35 Yes [facility] needles, insulin disposable (BD ULTRAFINE ORIG PEN NEEDLES MISC) 10-15 15:31: 35 Yes [facility] needles, insulin disposable (BD ULTRAFINE ORIG PEN NEEDLES MISC) 10-15 15:31: 35 Yes [facility] needles, insulin disposable (BD ULTRAFINE ORIG PEN NEEDLES MISC) 10-15 15:31: 35 Yes [facility] needles, insulin disposable (BD ULTRAFINE ORIG PEN NEEDLES MISC) 10-15 15:31: 35 Yes [facility] needles, insulin disposable (BD ULTRAFINE ORIG PEN NEEDLES MISC) 10-15 15:31: 35 Yes [facility] needles, insulin disposable (BD ULTRAFINE ORIG PEN NEEDLES MISC) 10-15 15:31: 35 Yes [facility] needles, insulin disposable (BD ULTRAFINE ORIG PEN NEEDLES MISC) 10-15 15:31: 35 Yes [facility] needles, insulin disposable (BD ULTRAFINE ORIG PEN NEEDLES MISC) 10-15 15:31: 35 Yes [facility] needles, insulin disposable (BD ULTRAFINE ORIG PEN NEEDLES MISC) 10-15 15:31: 35 Yes [facility] needles, insulin disposable (BD ULTRAFINE ORIG PEN NEEDLES MISC) 10-15 15:31: 35 Yes [facility] needles, insulin disposable (BD ULTRAFINE ORIG PEN NEEDLES MISC) 10-15 15:31: 35 Yes [facility] needles, insulin disposable (BD ULTRAFINE ORIG PEN NEEDLES MISC) 10-15 15:31: 35 Yes [facility] needles, insulin disposable (BD ULTRAFINE ORIG PEN NEEDLES MISC) 10-15 15:31: 35 Yes [facility] needles, insulin disposable (BD ULTRAFINE ORIG PEN NEEDLES MISC) 10-15 15:31: 35 Yes [facility] needles, insulin disposable (BD ULTRAFINE ORIG PEN NEEDLES MISC) 10-15 15:31: 35 Yes [facility] needles, insulin disposable (BD ULTRAFINE ORIG PEN NEEDLES MISC) 10-15 15:31: 35 Yes [facility] needles, insulin disposable (BD ULTRAFINE ORIG PEN NEEDLES MISC) 10-15 15:31: 35 Yes [facility] needles, insulin disposable (BD ULTRAFINE ORIG PEN NEEDLES MISC) 10-15 15:31: 35 Yes [facility] needles, insulin disposable (BD ULTRAFINE ORIG PEN NEEDLES MISC) 10-15 15:31: 35 Yes [facility] needles, insulin disposable (BD ULTRAFINE ORIG PEN NEEDLES MISC) 10-15 15:31: 35 Yes [facility] needles, insulin disposable (BD ULTRAFINE ORIG PEN NEEDLES MISC) 10-15 15:31: 35 Yes [facility] needles, insulin disposable (BD ULTRAFINE ORIG PEN NEEDLES MISC) 10-15 15:31: 35 Yes [facility] needles, insulin disposable (BD ULTRAFINE ORIG PEN NEEDLES MISC) 10-15 15:31: 35 Yes [facility] needles, insulin disposable (BD ULTRAFINE ORIG PEN NEEDLES MISC) 10-15 15:31: 35 Yes [facility] needles, insulin disposable (BD ULTRAFINE ORIG PEN NEEDLES MISC) 10-15 15:31: 35 Yes [facility] needles, insulin disposable (BD ULTRAFINE ORIG PEN NEEDLES MISC) 10-15 15:31: 35 Yes [facility] needles, insulin disposable (BD ULTRAFINE ORIG PEN NEEDLES MISC) 10-15 15:31: 35 Yes [facility] needles, insulin disposable (BD ULTRAFINE ORIG PEN NEEDLES MISC) 10-15 15:31: 35 Yes [facility] needles, insulin disposable (BD ULTRAFINE ORIG PEN NEEDLES MISC) 10-15 15:31: 35 Yes [facility] needles, insulin disposable (BD ULTRAFINE ORIG PEN NEEDLES MISC) 10-15 15:31: 35 Yes [facility] needles, insulin disposable (BD ULTRAFINE ORIG PEN NEEDLES MISC) 10-15 15:31: 35 Yes [facility] needles, insulin disposable (BD ULTRAFINE ORIG PEN NEEDLES MISC) 10-15 15:31: 35 Yes [facility] needles, insulin disposable (BD ULTRAFINE ORIG PEN NEEDLES MISC) 10-15 15:31: 35 Yes [facility] needles, insulin disposable (BD ULTRAFINE ORIG PEN NEEDLES MISC) 10-15 15:31: 35 Yes [facility] needles, insulin disposable (BD ULTRAFINE ORIG PEN NEEDLES MISC) 10-15 15:31: 35 Yes [facility] needles, insulin disposable (BD ULTRAFINE ORIG PEN NEEDLES MISC) 10-15 15:31: 35 Yes [facility] needles, insulin disposable (BD ULTRAFINE ORIG PEN NEEDLES MISC) 10-15 15:31: 35 Yes [facility] needles, insulin disposable (BD ULTRAFINE ORIG PEN NEEDLES MISC) 10-15 15:31: 35 Yes [facility] needles, insulin disposable (BD ULTRAFINE ORIG PEN NEEDLES MISC) 10-15 15:31: 35 Yes [facility] needles, insulin disposable (BD ULTRAFINE ORIG PEN NEEDLES MISC) 10-15 15:31: 35 Yes [facility] needles, insulin disposable (BD ULTRAFINE ORIG PEN NEEDLES MISC) 10-15 15:31: 35 Yes [facility] needles, insulin disposable (BD ULTRAFINE ORIG PEN NEEDLES MISC) 10-15 15:31: 35 Yes [facility] needles, insulin disposable (BD ULTRAFINE ORIG PEN NEEDLES MISC) 10-15 15:31: 35 Yes [facility] needles, insulin disposable (BD ULTRAFINE ORIG PEN NEEDLES MISC) 10-15 15:31: 35 Yes [facility] needles, insulin disposable (BD ULTRAFINE ORIG PEN NEEDLES MISC) 10-15 15:31: 35 Yes [facility] needles, insulin disposable (BD ULTRAFINE ORIG PEN NEEDLES MISC) 10-15 15:31: 35 Yes [facility] needles, insulin disposable (BD ULTRAFINE ORIG PEN NEEDLES MISC) 10-15 15:31: 35 Yes [facility] needles, insulin disposable (BD ULTRAFINE ORIG PEN NEEDLES MISC) 10-15 15:31: 35 Yes [facility] needles, insulin disposable (BD ULTRAFINE ORIG PEN NEEDLES MISC) 10-15 15:31: 35 Yes [facility] needles, insulin disposable (BD ULTRAFINE ORIG PEN NEEDLES MISC) 10-15 15:31: 35 Yes [facility] needles, insulin disposable (BD ULTRAFINE ORIG PEN NEEDLES MISC) 10-15 15:31: 35 Yes [facility] needles, insulin disposable (BD ULTRAFINE ORIG PEN NEEDLES MISC) 10-15 15:31: 35 Yes [facility] needles, insulin disposable (BD ULTRAFINE ORIG PEN NEEDLES MISC) 10-15 15:31: 35 Yes [facility] needles, insulin disposable (BD ULTRAFINE ORIG PEN NEEDLES MISC) 10-15 15:31: 35 Yes [facility] needles, insulin disposable (BD ULTRAFINE ORIG PEN NEEDLES MISC) 10-15 15:31: 35 Yes [facility] needles, insulin disposable (BD ULTRAFINE ORIG PEN NEEDLES MISC) 10-15 15:31: 35 Yes [facility] needles, insulin disposable (BD ULTRAFINE ORIG PEN NEEDLES MISC) 10-15 15:31: 35 Yes [facility] needles, insulin disposable (BD ULTRAFINE ORIG PEN NEEDLES MISC) 10-15 15:31: 35 Yes [facility] needles, insulin disposable (BD ULTRAFINE ORIG PEN NEEDLES MISC) 10-15 15:31: 35 Yes [facility] needles, insulin disposable (BD ULTRAFINE ORIG PEN NEEDLES MISC) 10-15 15:31: 35 Yes [facility] needles, insulin disposable (BD ULTRAFINE ORIG PEN NEEDLES MISC) 10-15 15:31: 35 Yes [facility] needles, insulin disposable (BD ULTRAFINE ORIG PEN NEEDLES MISC) 10-15 15:31: 35 Yes [facility] needles, insulin disposable (BD ULTRAFINE ORIG PEN NEEDLES MISC) 10-15 15:31: 35 Yes [facility] needles, insulin disposable (BD ULTRAFINE ORIG PEN NEEDLES MISC) 10-15 15:31: 35 Yes [facility] needles, insulin disposable (BD ULTRAFINE ORIG PEN NEEDLES MISC) 10-15 15:31: 35 Yes [facility] needles, insulin disposable (BD ULTRAFINE ORIG PEN NEEDLES MISC) 10-15 15:31: 35 Yes [facility] needles, insulin disposable (BD ULTRAFINE ORIG PEN NEEDLES MISC) 10-15 15:31: 35 Yes [facility] needles, insulin disposable (BD ULTRAFINE ORIG PEN NEEDLES MISC) 10-15 15:31: 35 Yes [facility] needles, insulin disposable (BD ULTRAFINE ORIG PEN NEEDLES MISC) 10-15 15:31: 35 Yes [facility] needles, insulin disposable (BD ULTRAFINE ORIG PEN NEEDLES MISC) 10-15 15:31: 35 Yes [facility] needles, insulin disposable (BD ULTRAFINE ORIG PEN NEEDLES MISC) 10-15 15:31: 35 Yes [facility] needles, insulin disposable (BD ULTRAFINE ORIG PEN NEEDLES MISC) 10-15 15:31: 35 Yes [facility] needles, insulin disposable (BD ULTRAFINE ORIG PEN NEEDLES MISC) 10-15 15:31: 35 Yes [facility] needles, insulin disposable (BD ULTRAFINE ORIG PEN NEEDLES MISC) 10-15 15:31: 35 Yes [facility] needles, insulin disposable (BD ULTRAFINE ORIG PEN NEEDLES MISC) 10-15 15:31: 35 Yes [facility] needles, insulin disposable (BD ULTRAFINE ORIG PEN NEEDLES MISC) 10-15 15:31: 35 Yes [facility] needles, insulin disposable (BD ULTRAFINE ORIG PEN NEEDLES MISC) 10-15 15:31: 35 Yes [facility] needles, insulin disposable (BD ULTRAFINE ORIG PEN NEEDLES MISC) 10-15 15:31: 35 Yes [facility] needles, insulin disposable (BD ULTRAFINE ORIG PEN NEEDLES MISC) 10-15 15:31: 35 Yes [facility] needles, insulin disposable (BD ULTRAFINE ORIG PEN NEEDLES MISC) 10-15 15:31: 35 Yes [facility] needles, insulin disposable (BD ULTRAFINE ORIG PEN NEEDLES MISC) 10-15 15:31: 35 Yes [facility] needles, insulin disposable (BD ULTRAFINE ORIG PEN NEEDLES MISC) 10-15 15:31: 35 Yes [facility] needles, insulin disposable (BD ULTRAFINE ORIG PEN NEEDLES MISC) 10-15 15:31: 35 Yes [facility] needles, insulin disposable (BD ULTRAFINE ORIG PEN NEEDLES MISC) 10-15 15:31: 35 Yes [facility] needles, insulin disposable (BD ULTRAFINE ORIG PEN NEEDLES MISC) 10-15 15:31: 35 Yes [facility] needles, insulin disposable (BD ULTRAFINE ORIG PEN NEEDLES MISC) 10-15 15:31: 35 Yes [facility] needles, insulin disposable (BD ULTRAFINE ORIG PEN NEEDLES MISC) 10-15 15:31: 35 Yes [facility] needles, insulin disposable (BD ULTRAFINE ORIG PEN NEEDLES MISC) 10-15 15:31: 35 Yes [facility] needles, insulin disposable (BD ULTRAFINE ORIG PEN NEEDLES MISC) 10-15 15:31: 35 Yes [facility] needles, insulin disposable (BD ULTRAFINE ORIG PEN NEEDLES MISC) 10-15 15:31: 35 Yes [facility] needles, insulin disposable (BD ULTRAFINE ORIG PEN NEEDLES MISC) 10-15 15:31: 35 Yes [facility] needles, insulin disposable (BD ULTRAFINE ORIG PEN NEEDLES MISC) 10-15 15:31: 35 Yes [facility] needles, insulin disposable (BD ULTRAFINE ORIG PEN NEEDLES MISC) 10-15 15:31: 35 Yes [facility] needles, insulin disposable (BD ULTRAFINE ORIG PEN NEEDLES MISC) 10-15 15:31: 35 Yes [facility] needles, insulin disposable (BD ULTRAFINE ORIG PEN NEEDLES MISC) 10-15 15:31: 35 Yes [facility] needles, insulin disposable (BD ULTRAFINE ORIG PEN NEEDLES MISC) 10-15 15:31: 35 Yes [facility] needles, insulin disposable (BD ULTRAFINE ORIG PEN NEEDLES MISC) 10-15 15:31: 35 Yes [facility] needles, insulin disposable (BD ULTRAFINE ORIG PEN NEEDLES MISC) 10-15 15:31: 35 Yes [facility] needles, insulin disposable (BD ULTRAFINE ORIG PEN NEEDLES MISC) 10-15 15:31: 35 Yes [facility] needles, insulin disposable (BD ULTRAFINE ORIG PEN NEEDLES MISC) 10-15 15:31: 35 Yes [facility] needles, insulin disposable (BD ULTRAFINE ORIG PEN NEEDLES MISC) 10-15 15:31: 35 Yes [facility] needles, insulin disposable (BD ULTRAFINE ORIG PEN NEEDLES MISC) 10-15 15:31: 35 Yes [facility] needles, insulin disposable (BD ULTRAFINE ORIG PEN NEEDLES MISC) 10-15 15:31: 35 Yes [facility] needles, insulin disposable (BD ULTRAFINE ORIG PEN NEEDLES MISC) 10-15 15:31: 35 Yes [facility] needles, insulin disposable (BD ULTRAFINE ORIG PEN NEEDLES MISC) 10-15 15:31: 35 Yes [facility] needles, insulin disposable (BD ULTRAFINE ORIG PEN NEEDLES MISC) 10-15 15:31: 35 Yes [facility] needles, insulin disposable (BD ULTRAFINE ORIG PEN NEEDLES MISC) 10-15 15:31: 35 Yes [facility] needles, insulin disposable (BD ULTRAFINE ORIG PEN NEEDLES MISC) 10-15 15:31: 35 Yes [facility] needles, insulin disposable (BD ULTRAFINE ORIG PEN NEEDLES MISC) 10-15 15:31: 35 Yes [facility] needles, insulin disposable (BD ULTRAFINE ORIG PEN NEEDLES MISC) 10-15 15:31: 35 Yes [facility] needles, insulin disposable (BD ULTRAFINE ORIG PEN NEEDLES MISC) 10-15 15:31: 35 Yes [facility] needles, insulin disposable (BD ULTRAFINE ORIG PEN NEEDLES MISC) 10-15 15:31: 35 Yes [facility] needles, insulin disposable (BD ULTRAFINE ORIG PEN NEEDLES MISC) 10-15 15:31: 35 Yes [facility] needles, insulin disposable (BD ULTRAFINE ORIG PEN NEEDLES MISC) 10-15 15:31: 35 Yes [facility] needles, insulin disposable (BD ULTRAFINE ORIG PEN NEEDLES [facility] 10-15 15:31: 35 Yes [facility] needles, insulin disposable (BD ULTRAFINE ORIG PEN NEEDLES [facility] 10-15 15:31: 35 Yes [facility] needles, insulin disposable (BD ULTRAFINE ORIG PEN NEEDLES [facility] 10-15 15:31: 35 Yes [facility] Fenofibrate Fenofibrate No Fe nofibrat e amLODIPine Besylate 10 MG amLODIPine Besylate 10 MG No amLODIPine Besylate 10 MG Atorvastati n Calcium 40 MG Atorvastati n Calcium 40 MG No Atorvastat in Calcium 40 MG Vitamin D (Ergocalcif peggy) 1.25 MG (11680 UT) Vitamin D (Ergocalcif peggy) 1.25 MG (35404 UT) No Vitamin D (Ergocalci ferol) 1.25 MG (36116 UT) Meloxicam 15 MG Meloxicam 15 MG No Meloxicam 15 MG Allopurinol 100 MG Allopurinol 100 MG No Allopurino l 100 MG Nebivolol HCl 10 MG Nebivolol HCl 10 MG No Nebivolol HCl 10 MG Basaglar KwikPen 100 UNIT/ML Basaglar KwikPen 100 UNIT/ML No Basaglar KwikPen 100 UNIT/ML Tamsulosin HCl 0.4 MG Tamsulosin HCl 0.4 MG No Tamsulosin HCl 0.4 MG NovoLOG NovoLOG No NovoLOG Lisinopril 40 MG Lisinopril 40 MG No Lisinopril 40 MG metFORMIN HCl ER 500 MG metFORMIN HCl ER 500 MG No 1{table t_with_ evening _meal} QD metFORMIN HCl ER 500 MG Fenofibrate Fenofibrate No Fe nofibrat e amLODIPine Besylate 10 MG amLODIPine Besylate 10 MG No amLODIPine Besylate 10 MG Atorvastati n Calcium 40 MG Atorvastati n Calcium 40 MG No Atorvastat in Calcium 40 MG Vitamin D (Ergocalcif peggy) 1.25 MG (14726 UT) Vitamin D (Ergocalcif peggy) 1.25 MG (53496 UT) No Vitamin D (Ergocalci ferol) 1.25 MG (66676 UT) Meloxicam 15 MG Meloxicam 15 MG No Meloxicam 15 MG Allopurinol 100 MG Allopurinol 100 MG No Allopurino l 100 MG Nebivolol HCl 10 MG Nebivolol HCl 10 MG No Nebivolol HCl 10 MG Basaglar KwikPen 100 UNIT/ML Basaglar KwikPen 100 UNIT/ML No Basaglar KwikPen 100 UNIT/ML Tamsulosin HCl 0.4 MG Tamsulosin HCl 0.4 MG No Tamsulosin HCl 0.4 MG NovoLOG NovoLOG No NovoLOG Lisinopril 40 MG Lisinopril 40 MG No Lisinopril 40 MG metFORMIN HCl ER 500 MG metFORMIN HCl ER 500 MG No 1{table t_with_ evening _meal} QD metFORMIN HCl ER 500 MG Fenofibrate Fenofibrate No Fe nofibrat e amLODIPine Besylate 10 MG amLODIPine Besylate 10 MG No amLODIPine Besylate 10 MG Atorvastati n Calcium 40 MG Atorvastati n Calcium 40 MG No Atorvastat in Calcium 40 MG Vitamin D (Ergocalcif peggy) 1.25 MG (91644 UT) Vitamin D (Ergocalcif peggy) 1.25 MG (01325 UT) No Vitamin D (Ergocalci ferol) 1.25 MG (14533 UT) Meloxicam 15 MG Meloxicam 15 MG No Meloxicam 15 MG Allopurinol 100 MG Allopurinol 100 MG No Allopurino l 100 MG Nebivolol HCl 10 MG Nebivolol HCl 10 MG No Nebivolol HCl 10 MG Basaglar KwikPen 100 UNIT/ML Basaglar KwikPen 100 UNIT/ML No Basaglar KwikPen 100 UNIT/ML Tamsulosin HCl 0.4 MG Tamsulosin HCl 0.4 MG No Tamsulosin HCl 0.4 MG NovoLOG NovoLOG No NovoLOG Lisinopril 40 MG Lisinopril 40 MG No Lisinopril 40 MG metFORMIN HCl ER 500 MG metFORMIN HCl ER 500 MG No 1{table t_with_ evening _meal} QD metFORMIN HCl ER 500 MG Fenofibrate Fenofibrate No Fe nofibrat e amLODIPine Besylate 10 MG amLODIPine Besylate 10 MG No amLODIPine Besylate 10 MG Atorvastati n Calcium 40 MG Atorvastati n Calcium 40 MG No Atorvastat in Calcium 40 MG Vitamin D (Ergocalcif peggy) 1.25 MG (05148 UT) Vitamin D (Ergocalcif peggy) 1.25 MG ( UT) No Vitamin D (Ergocalci ferol) 1.25 MG ( UT) amLODIPine Besylate 10 MG amLODIPine Besylate 10 MG No amLODIPine Besylate 10 MG Vitamin D (Ergocalcif peggy) 1.25 MG ( UT) Vitamin D (Ergocalcif peggy) 1.25 MG ( UT) No Vitamin D (Ergocalci ferol) 1.25 MG ( UT) Tamsulosin HCl 0.4 MG Tamsulosin HCl 0.4 MG No Tamsulosin HCl 0.4 MG Meloxicam 15 MG Meloxicam 15 MG No Meloxicam 15 MG NovoLOG NovoLOG No NovoLOG Allopurinol 100 MG Allopurinol 100 MG No Allopurino l 100 MG Nebivolol HCl 10 MG Nebivolol HCl 10 MG No Nebivolol HCl 10 MG Fenofibrate Fenofibrate No Fe nofibrat e Atorvastati n Calcium 40 MG Atorvastati n Calcium 40 MG No Atorvastat in Calcium 40 MG metFORMIN HCl ER 500 MG metFORMIN HCl ER 500 MG No 1{table t_with_ evening _meal} QD metFORMIN HCl ER 500 MG Basaglar KwikPen 100 UNIT/ML Basaglar KwikPen 100 UNIT/ML No Basaglar KwikPen 100 UNIT/ML Lisinopril 40 MG Lisinopril 40 MG No Lisinopril 40 MG Atorvastati n Calcium 40 MG Atorvastati n Calcium 40 MG No Atorvastat in Calcium 40 MG Tamsulosin HCl 0.4 MG Tamsulosin HCl 0.4 MG No Tamsulosin HCl 0.4 MG Atorvastati n Calcium 40 MG Atorvastati n Calcium 40 MG No Atorvastat in Calcium 40 MG amLODIPine Besylate 10 MG amLODIPine Besylate 10 MG No amLODIPine Besylate 10 MG Meloxicam 15 MG Meloxicam 15 MG No Meloxicam 15 MG Nebivolol HCl 10 MG Nebivolol HCl 10 MG No Nebivolol HCl 10 MG Basaglar KwikPen 100 UNIT/ML Basaglar KwikPen 100 UNIT/ML No Basaglar KwikPen 100 UNIT/ML Meloxicam 15 MG Meloxicam 15 MG No Meloxicam 15 MG metFORMIN HCl ER 500 MG metFORMIN HCl ER 500 MG No 1{table t_with_ evening _meal} QD metFORMIN HCl ER 500 MG Fenofibrate Fenofibrate No Fe nofibrat e Lisinopril 40 MG Lisinopril 40 MG No Lisinopril 40 MG NovoLOG NovoLOG No NovoLOG Allopurinol 100 MG Allopurinol 100 MG No Allopurino l 100 MG Vitamin D (Ergocalcif peggy) 1.25 MG (06091 UT) Vitamin D (Ergocalcif peggy) 1.25 MG (43424 UT) No Vitamin D (Ergocalci ferol) 1.25 MG (36395 UT) Vitamin D (Ergocalcif peggy) 1.25 MG (66741 UT) Vitamin D (Ergocalcif peggy) 1.25 MG (30772 UT) No Vitamin D (Ergocalci ferol) 1.25 MG (45304 UT) metFORMIN HCl ER 500 MG metFORMIN [...] MG Vitamin D (Ergocalcif peggy) 1.25 MG (90448 UT) Vitamin D (Ergocalcif peggy) 1.25 MG (74931 UT) No Vitamin D (Ergocalci ferol) 1.25 MG (39064 UT) Meloxicam 15 MG Meloxicam 15 MG [...] MG Vitamin D (Ergocalcif peggy) 1.25 MG (88915 UT) Vitamin D (Ergocalcif peggy) 1.25 MG (55726 UT) No Vitamin D (Ergocalci ferol) 1.25 MG (11432 UT) Meloxicam 15 MG Meloxicam 15 MG [...] MG Vitamin D (Ergocalcif peggy) 1.25 MG (05466 UT) Vitamin D (Ergocalcif peggy) 1.25 MG (61456 UT) No Vitamin D (Ergocalci ferol) 1.25 MG (98687 UT) Meloxicam 15 MG Meloxicam 15 MG [...] MG Vitamin D (Ergocalcif peggy) 1.25 MG (93041 UT) Vitamin D (Ergocalcif peggy) 1.25 MG (19718 UT) No Vitamin D (Ergocalci ferol) 1.25 MG (56747 UT) Meloxicam 15 MG Meloxicam 15 MG [...] MG Vitamin D (Ergocalcif peggy) 1.25 MG (96026 UT) Vitamin D (Ergocalcif peggy) 1.25 MG (76857 UT) No Vitamin D (Ergocalci ferol) 1.25 MG (34858 UT) Meloxicam 15 MG Meloxicam 15 MG No Meloxicam 15 MG Basaglar KwikPen 100 UNIT/ML Basaglar KwikPen 100 UNIT/ML No Basaglar KwikPen 100 UNIT/ML Atorvastati n Calcium 40 MG Atorvastati n Calcium 40 MG No Atorvastat in Calcium 40 MG Meloxicam 15 MG Meloxicam 15 MG No Meloxicam 15 MG Allopurinol 100 MG Allopurinol 100 MG No Allopurino l 100 MG Nebivolol HCl 10 MG Nebivolol HCl 10 MG No Nebivolol HCl 10 MG Basaglar KwikPen 100 UNIT/ML Basaglar KwikPen 100 UNIT/ML No Basaglar KwikPen 100 UNIT/ML Tamsulosin HCl 0.4 MG Tamsulosin HCl 0.4 MG No Tamsulosin HCl 0.4 MG NovoLOG NovoLOG No NovoLOG Lisinopril 40 MG Lisinopril 40 MG No Lisinopril 40 MG metFORMIN HCl ER 500 MG metFORMIN HCl ER 500 MG No 1{table t_with_ evening _meal} QD metFORMIN HCl ER 500 MG Immunizations Ordered Immunization Name Filled Immunization Name Date Status Comments Source SARS-COV-2 COVID-19 PFIZER VACCINE 2020-08-03 00:00:00 Completed [facility] SARS-COV-2 COVID-19 PFIZER VACCINE 2020-08-03 00:00:00 Completed [facility] SARS-COV-2 COVID-19 PFIZER VACCINE 2020-08-03 00:00:00 Completed [facility] SARS-COV-2 COVID-19 PFIZER VACCINE 2020-08-03 00:00:00 Completed [facility] SARS-COV-2 COVID-19 PFIZER VACCINE 2020-08-03 00:00:00 Completed [facility] SARS-COV-2 COVID-19 PFIZER VACCINE 2020-08-03 00:00:00 Completed [facility] SARS-COV-2 COVID-19 PFIZER VACCINE 2020-08-03 00:00:00 Completed [facility] SARS-COV-2 COVID-19 PFIZER VACCINE 2020-08-03 00:00:00 Completed [facility] SARS-COV-2 COVID-19 PFIZER VACCINE 2020-08-03 00:00:00 Completed [facility] SARS-COV-2 COVID-19 PFIZER VACCINE 2020-08-03 00:00:00 Completed [facility] SARS-COV-2 COVID-19 PFIZER VACCINE 2020-08-03 00:00:00 Completed [facility] SARS-COV-2 COVID-19 PFIZER VACCINE 2020-08-03 00:00:00 Completed [facility] SARS-COV-2 COVID-19 PFIZER VACCINE 2020-08-03 00:00:00 Completed [facility] SARS-COV-2 COVID-19 PFIZER VACCINE 2020-08-03 00:00:00 Completed [facility] SARS-COV-2 COVID-19 PFIZER VACCINE 2020-08-03 00:00:00 Completed [facility] SARS-COV-2 COVID-19 PFIZER VACCINE 2020-08-03 00:00:00 Completed [facility] SARS-COV-2 COVID-19 PFIZER VACCINE 2020-08-03 00:00:00 Completed [facility] SARS-COV-2 COVID-19 PFIZER VACCINE 2020-08-03 00:00:00 Completed [facility] SARS-COV-2 COVID-19 PFIZER VACCINE 2020-08-03 00:00:00 Completed [facility] SARS-COV-2 COVID-19 PFIZER VACCINE 2020-08-03 00:00:00 Completed [facility] SARS-COV-2 COVID-19 PFIZER VACCINE 2020-08-03 00:00:00 Completed [facility] SARS-COV-2 COVID-19 PFIZER VACCINE 2020-08-03 00:00:00 Completed [facility] SARS-COV-2 COVID-19 PFIZER VACCINE 2020-08-03 00:00:00 Completed [facility] SARS-COV-2 COVID-19 PFIZER VACCINE 2020-08-03 00:00:00 Completed [facility] SARS-COV-2 COVID-19 PFIZER VACCINE 2020-08-03 00:00:00 Completed [facility] SARS-COV-2 COVID-19 PFIZER VACCINE 2020-08-03 00:00:00 Completed [facility] SARS-COV-2 COVID-19 PFIZER VACCINE 2020-08-03 00:00:00 Completed [facility] SARS-COV-2 COVID-19 PFIZER VACCINE 2020-08-03 00:00:00 Completed [facility] SARS-COV-2 COVID-19 PFIZER VACCINE 2020-08-03 00:00:00 Completed [facility] SARS-COV-2 COVID-19 PFIZER VACCINE 2020-08-03 00:00:00 Completed [facility] SARS-COV-2 COVID-19 PFIZER VACCINE 2020-08-03 00:00:00 Completed [facility] SARS-COV-2 COVID-19 PFIZER VACCINE 2020-08-03 00:00:00 Completed [facility] SARS-COV-2 COVID-19 PFIZER VACCINE 2020-08-03 00:00:00 Completed [facility] SARS-COV-2 COVID-19 PFIZER VACCINE 2020-08-03 00:00:00 Completed [facility] SARS-COV-2 COVID-19 PFIZER VACCINE 2020-08-03 00:00:00 Completed [facility] SARS-COV-2 COVID-19 PFIZER VACCINE 2020-08-03 00:00:00 Completed [facility] SARS-COV-2 COVID-19 PFIZER VACCINE 2020-08-03 00:00:00 Completed [facility] SARS-COV-2 COVID-19 PFIZER VACCINE 2020-08-03 00:00:00 Completed [facility] SARS-COV-2 COVID-19 PFIZER VACCINE 2020-08-03 00:00:00 Completed [facility] SARS-COV-2 COVID-19 PFIZER VACCINE 2020-08-03 00:00:00 Completed [facility] SARS-COV-2 COVID-19 PFIZER VACCINE 2020-08-03 00:00:00 Completed [facility] SARS-COV-2 COVID-19 PFIZER VACCINE 2020-08-03 00:00:00 Completed [facility] SARS-COV-2 COVID-19 PFIZER VACCINE 2020-08-03 00:00:00 Completed [facility] SARS-COV-2 COVID-19 PFIZER VACCINE 2020-08-03 00:00:00 Completed [facility] SARS-COV-2 COVID-19 PFIZER VACCINE 2020-08-03 00:00:00 Completed [facility] SARS-COV-2 COVID-19 PFIZER VACCINE 2020-08-03 00:00:00 Completed [facility] SARS-COV-2 COVID-19 PFIZER VACCINE 2020-08-03 00:00:00 Completed [facility] SARS-COV-2 COVID-19 PFIZER VACCINE 2020-08-03 00:00:00 Completed [facility] SARS-COV-2 COVID-19 PFIZER VACCINE 2020-08-03 00:00:00 Completed [facility] SARS-COV-2 COVID-19 PFIZER VACCINE 2020-08-03 00:00:00 Completed [facility] SARS-COV-2 COVID-19 PFIZER VACCINE 2020-08-03 00:00:00 Completed [facility] SARS-COV-2 COVID-19 PFIZER VACCINE 2020-08-03 00:00:00 Completed [facility] SARS-COV-2 COVID-19 PFIZER VACCINE 2020-08-03 00:00:00 Completed [facility] SARS-COV-2 COVID-19 PFIZER VACCINE 2020-08-03 00:00:00 Completed [facility] SARS-COV-2 COVID-19 PFIZER VACCINE 2020-08-03 00:00:00 Completed [facility] SARS-COV-2 COVID-19 PFIZER VACCINE 2020-08-03 00:00:00 Completed [facility] SARS-COV-2 COVID-19 PFIZER VACCINE 2020-08-03 00:00:00 Completed [facility] SARS-COV-2 COVID-19 PFIZER VACCINE 2020-08-03 00:00:00 Completed [facility] SARS-COV-2 COVID-19 PFIZER VACCINE 2020-08-03 00:00:00 Completed [facility] SARS-COV-2 COVID-19 PFIZER VACCINE 2020-08-03 00:00:00 Completed [facility] SARS-COV-2 COVID-19 PFIZER VACCINE 2020-08-03 00:00:00 Completed [facility] SARS-COV-2 COVID-19 PFIZER VACCINE 2020-08-03 00:00:00 Completed [facility] SARS-COV-2 COVID-19 PFIZER VACCINE 2020-08-03 00:00:00 Completed [facility] SARS-COV-2 COVID-19 PFIZER VACCINE 2020-08-03 00:00:00 Completed [facility] SARS-COV-2 COVID-19 PFIZER VACCINE 2020-08-03 00:00:00 Completed [facility] SARS-COV-2 COVID-19 PFIZER VACCINE 2020-08-03 00:00:00 Completed [facility] SARS-COV-2 COVID-19 PFIZER VACCINE 2020-08-03 00:00:00 Completed [facility] SARS-COV-2 COVID-19 PFIZER VACCINE 2020-08-03 00:00:00 Completed [facility] SARS-COV-2 COVID-19 PFIZER VACCINE 2020-08-03 00:00:00 Completed [facility] SARS-COV-2 COVID-19 PFIZER VACCINE 2020-08-03 00:00:00 Completed [facility] SARS-COV-2 COVID-19 PFIZER VACCINE 2020-08-03 00:00:00 Completed [facility] SARS-COV-2 COVID-19 PFIZER VACCINE 2020-08-03 00:00:00 Completed [facility] SARS-COV-2 COVID-19 PFIZER VACCINE 2020-07-13 00:00:00 Completed [facility] SARS-COV-2 COVID-19 PFIZER VACCINE 2020-07-13 00:00:00 Completed [facility] SARS-COV-2 COVID-19 PFIZER VACCINE 2020-07-13 00:00:00 Completed [facility] SARS-COV-2 COVID-19 PFIZER VACCINE 2020-07-13 00:00:00 Completed [facility] SARS-COV-2 COVID-19 PFIZER VACCINE 2020-07-13 00:00:00 Completed [facility] SARS-COV-2 COVID-19 PFIZER VACCINE 2020-07-13 00:00:00 Completed [facility] SARS-COV-2 COVID-19 PFIZER VACCINE 2020-07-13 00:00:00 Completed [facility] SARS-COV-2 COVID-19 PFIZER VACCINE 2020-07-13 00:00:00 Completed [facility] SARS-COV-2 COVID-19 PFIZER VACCINE 2020-07-13 00:00:00 Completed [facility] SARS-COV-2 COVID-19 PFIZER VACCINE 2020-07-13 00:00:00 Completed [facility] SARS-COV-2 COVID-19 PFIZER VACCINE 2020-07-13 00:00:00 Completed [facility] SARS-COV-2 COVID-19 PFIZER VACCINE 2020-07-13 00:00:00 Completed [facility] SARS-COV-2 COVID-19 PFIZER VACCINE 2020-07-13 00:00:00 Completed [facility] SARS-COV-2 COVID-19 PFIZER VACCINE 2020-07-13 00:00:00 Completed [facility] SARS-COV-2 COVID-19 PFIZER VACCINE 2020-07-13 00:00:00 Completed [facility] SARS-COV-2 COVID-19 PFIZER VACCINE 2020-07-13 00:00:00 Completed [facility] SARS-COV-2 COVID-19 PFIZER VACCINE 2020-07-13 00:00:00 Completed [facility] SARS-COV-2 COVID-19 PFIZER VACCINE 2020-07-13 00:00:00 Completed [facility] SARS-COV-2 COVID-19 PFIZER VACCINE 2020-07-13 00:00:00 Completed [facility] SARS-COV-2 COVID-19 PFIZER VACCINE 2020-07-13 00:00:00 Completed [facility] SARS-COV-2 COVID-19 PFIZER VACCINE 2020-07-13 00:00:00 Completed [facility] SARS-COV-2 COVID-19 PFIZER VACCINE 2020-07-13 00:00:00 Completed [facility] SARS-COV-2 COVID-19 PFIZER VACCINE 2020-07-13 00:00:00 Completed [facility] SARS-COV-2 COVID-19 PFIZER VACCINE 2020-07-13 00:00:00 Completed [facility] SARS-COV-2 COVID-19 PFIZER VACCINE 2020-07-13 00:00:00 Completed [facility] SARS-COV-2 COVID-19 PFIZER VACCINE 2020-07-13 00:00:00 Completed [facility] SARS-COV-2 COVID-19 PFIZER VACCINE 2020-07-13 00:00:00 Completed [facility] SARS-COV-2 COVID-19 PFIZER VACCINE 2020-07-13 00:00:00 Completed [facility] SARS-COV-2 COVID-19 PFIZER VACCINE 2020-07-13 00:00:00 Completed [facility] SARS-COV-2 COVID-19 PFIZER VACCINE 2020-07-13 00:00:00 Completed [facility] SARS-COV-2 COVID-19 PFIZER VACCINE 2020-07-13 00:00:00 Completed [facility] SARS-COV-2 COVID-19 PFIZER VACCINE 2020-07-13 00:00:00 Completed [facility] SARS-COV-2 COVID-19 PFIZER VACCINE 2020-07-13 00:00:00 Completed [facility] SARS-COV-2 COVID-19 PFIZER VACCINE 2020-07-13 00:00:00 Completed [facility] SARS-COV-2 COVID-19 PFIZER VACCINE 2020-07-13 00:00:00 Completed [facility] SARS-COV-2 COVID-19 PFIZER VACCINE 2020-07-13 00:00:00 Completed [facility] SARS-COV-2 COVID-19 PFIZER VACCINE 2020-07-13 00:00:00 Completed [facility] SARS-COV-2 COVID-19 PFIZER VACCINE 2020-07-13 00:00:00 Completed [facility] SARS-COV-2 COVID-19 PFIZER VACCINE 2020-07-13 00:00:00 Completed [facility] SARS-COV-2 COVID-19 PFIZER VACCINE 2020-07-13 00:00:00 Completed [facility] SARS-COV-2 COVID-19 PFIZER VACCINE 2020-07-13 00:00:00 Completed [facility] SARS-COV-2 COVID-19 PFIZER VACCINE 2020-07-13 00:00:00 Completed [facility] SARS-COV-2 COVID-19 PFIZER VACCINE 2020-07-13 00:00:00 Completed [facility] SARS-COV-2 COVID-19 PFIZER VACCINE 2020-07-13 00:00:00 Completed [facility] SARS-COV-2 COVID-19 PFIZER VACCINE 2020-07-13 00:00:00 Completed [facility] SARS-COV-2 COVID-19 PFIZER VACCINE 2020-07-13 00:00:00 Completed [facility] SARS-COV-2 COVID-19 PFIZER VACCINE 2020-07-13 00:00:00 Completed [facility] SARS-COV-2 COVID-19 PFIZER VACCINE 2020-07-13 00:00:00 Completed [facility] SARS-COV-2 COVID-19 PFIZER VACCINE 2020-07-13 00:00:00 Completed [facility] SARS-COV-2 COVID-19 PFIZER VACCINE 2020-07-13 00:00:00 Completed [facility] SARS-COV-2 COVID-19 PFIZER VACCINE 2020-07-13 00:00:00 Completed [facility] SARS-COV-2 COVID-19 PFIZER VACCINE 2020-07-13 00:00:00 Completed [facility] SARS-COV-2 COVID-19 PFIZER VACCINE 2020-07-13 00:00:00 Completed [facility] SARS-COV-2 COVID-19 PFIZER VACCINE 2020-07-13 00:00:00 Completed [facility] SARS-COV-2 COVID-19 PFIZER VACCINE 2020-07-13 00:00:00 Completed [facility] SARS-COV-2 COVID-19 PFIZER VACCINE 2020-07-13 00:00:00 Completed [facility] SARS-COV-2 COVID-19 PFIZER VACCINE 2020-07-13 00:00:00 Completed [facility] SARS-COV-2 COVID-19 PFIZER VACCINE 2020-07-13 00:00:00 Completed [facility] SARS-COV-2 COVID-19 PFIZER VACCINE 2020-07-13 00:00:00 Completed [facility] SARS-COV-2 COVID-19 PFIZER VACCINE 2020-07-13 00:00:00 Completed [facility] SARS-COV-2 COVID-19 PFIZER VACCINE 2020-07-13 00:00:00 Completed [facility] SARS-COV-2 COVID-19 PFIZER VACCINE 2020-07-13 00:00:00 Completed [facility] SARS-COV-2 COVID-19 PFIZER VACCINE 2020-07-13 00:00:00 Completed [facility] SARS-COV-2 COVID-19 PFIZER VACCINE 2020-07-13 00:00:00 Completed [facility] SARS-COV-2 COVID-19 PFIZER VACCINE 2020-07-13 00:00:00 Completed [facility] SARS-COV-2 COVID-19 PFIZER VACCINE 2020-07-13 00:00:00 Completed [facility] SARS-COV-2 COVID-19 PFIZER VACCINE 2020-07-13 00:00:00 Completed [facility] SARS-COV-2 COVID-19 PFIZER VACCINE 2020-07-13 00:00:00 Completed [facility] SARS-COV-2 COVID-19 PFIZER VACCINE 2020-07-13 00:00:00 Completed [facility] SARS-COV-2 COVID-19 PFIZER VACCINE 2020-07-13 00:00:00 Completed [facility] SARS-COV-2 COVID-19 PFIZER VACCINE 2020-07-13 00:00:00 Completed [facility] SARS-COV-2 COVID-19 PFIZER VACCINE 2020-07-13 00:00:00 Completed [facility] SARS-COV-2 COVID-19 PFIZER VACCINE Unknown Completed [facility] SARS-COV-2 COVID-19 PFIZER VACCINE Unknown Completed [facility] SARS-COV-2 COVID-19 PFIZER VACCINE Unknown Completed [facility] SARS-COV-2 COVID-19 PFIZER VACCINE Unknown Completed [facility] SARS-COV-2 COVID-19 PFIZER VACCINE Unknown Completed [facility] SARS-COV-2 COVID-19 PFIZER VACCINE Unknown Completed [facility] SARS-COV-2 COVID-19 PFIZER VACCINE Unknown Completed [facility] SARS-COV-2 COVID-19 PFIZER VACCINE Unknown Completed [facility] SARS-COV-2 COVID-19 PFIZER VACCINE Unknown Completed [facility] SARS-COV-2 COVID-19 PFIZER VACCINE Unknown Completed [facility] SARS-COV-2 COVID-19 PFIZER VACCINE Unknown Completed [facility] SARS-COV-2 COVID-19 PFIZER VACCINE Unknown Completed [facility] SARS-COV-2 COVID-19 PFIZER VACCINE Unknown Completed [facility] SARS-COV-2 COVID-19 PFIZER VACCINE Unknown Completed [facility] SARS-COV-2 COVID-19 PFIZER VACCINE Unknown Completed [facility] SARS-COV-2 COVID-19 PFIZER VACCINE Unknown Completed [facility] SARS-COV-2 COVID-19 PFIZER VACCINE Unknown Completed [facility] SARS-COV-2 COVID-19 PFIZER VACCINE Unknown Completed [facility] SARS-COV-2 COVID-19 PFIZER VACCINE Unknown Completed [facility] SARS-COV-2 COVID-19 PFIZER VACCINE Unknown Completed [facility] SARS-COV-2 COVID-19 PFIZER VACCINE Unknown Completed [facility] SARS-COV-2 COVID-19 PFIZER VACCINE Unknown Completed [facility] SARS-COV-2 COVID-19 PFIZER VACCINE Unknown Completed [facility] SARS-COV-2 COVID-19 PFIZER VACCINE Unknown Completed [facility] SARS-COV-2 COVID-19 PFIZER VACCINE Unknown Completed [facility] SARS-COV-2 COVID-19 PFIZER VACCINE Unknown Completed [facility] SARS-COV-2 COVID-19 PFIZER VACCINE Unknown Completed [facility] SARS-COV-2 COVID-19 PFIZER VACCINE Unknown Completed [facility] SARS-COV-2 COVID-19 PFIZER VACCINE Unknown Completed [facility] SARS-COV-2 COVID-19 PFIZER VACCINE Unknown Completed [facility] SARS-COV-2 COVID-19 PFIZER VACCINE Unknown Completed [facility] SARS-COV-2 COVID-19 PFIZER VACCINE Unknown Completed [facility] SARS-COV-2 COVID-19 PFIZER VACCINE Unknown Completed [facility] SARS-COV-2 COVID-19 PFIZER VACCINE Unknown Completed [facility] SARS-COV-2 COVID-19 PFIZER VACCINE Unknown Completed [facility] SARS-COV-2 COVID-19 PFIZER VACCINE Unknown Completed [facility] SARS-COV-2 COVID-19 PFIZER VACCINE Unknown Completed [facility] SARS-COV-2 COVID-19 PFIZER VACCINE Unknown Completed [facility] SARS-COV-2 COVID-19 PFIZER VACCINE Unknown Completed [facility] SARS-COV-2 COVID-19 PFIZER VACCINE Unknown Completed [facility] SARS-COV-2 COVID-19 PFIZER VACCINE Unknown Completed [facility] SARS-COV-2 COVID-19 PFIZER VACCINE Unknown Completed [facility] SARS-COV-2 COVID-19 PFIZER VACCINE Unknown Completed [facility] SARS-COV-2 COVID-19 PFIZER VACCINE Unknown Completed [facility] SARS-COV-2 COVID-19 PFIZER VACCINE Unknown Completed [facility] SARS-COV-2 COVID-19 PFIZER VACCINE Unknown Completed [facility] SARS-COV-2 COVID-19 PFIZER VACCINE Unknown Completed [facility] SARS-COV-2 COVID-19 PFIZER VACCINE Unknown Completed [facility] SARS-COV-2 COVID-19 PFIZER VACCINE Unknown Completed [facility] SARS-COV-2 COVID-19 PFIZER VACCINE Unknown Completed [facility] SARS-COV-2 COVID-19 PFIZER VACCINE Unknown Completed [facility] SARS-COV-2 COVID-19 PFIZER VACCINE Unknown Completed [facility] SARS-COV-2 COVID-19 PFIZER VACCINE Unknown Completed [facility] SARS-COV-2 COVID-19 PFIZER VACCINE Unknown Completed [facility] SARS-COV-2 COVID-19 PFIZER VACCINE Unknown Completed [facility] SARS-COV-2 COVID-19 PFIZER VACCINE Unknown Completed [facility] SARS-COV-2 COVID-19 PFIZER VACCINE Unknown Completed [facility] SARS-COV-2 COVID-19 PFIZER VACCINE Unknown Completed [facility] SARS-COV-2 COVID-19 PFIZER VACCINE Unknown Completed [facility] SARS-COV-2 COVID-19 PFIZER VACCINE Unknown Completed [facility] SARS-COV-2 COVID-19 PFIZER VACCINE Unknown Completed [facility] SARS-COV-2 COVID-19 PFIZER VACCINE Unknown Completed [facility] SARS-COV-2 COVID-19 PFIZER VACCINE Unknown Completed [facility] SARS-COV-2 COVID-19 PFIZER VACCINE Unknown Completed [facility] SARS-COV-2 COVID-19 PFIZER VACCINE Unknown Completed [facility] SARS-COV-2 COVID-19 PFIZER VACCINE Unknown Completed [facility] SARS-COV-2 COVID-19 PFIZER VACCINE Unknown Completed [facility] SARS-COV-2 COVID-19 PFIZER VACCINE Unknown Completed [facility] SARS-COV-2 COVID-19 PFIZER VACCINE Unknown Completed [facility] SARS-COV-2 COVID-19 PFIZER VACCINE Unknown Completed [facility] SARS-COV-2 COVID-19 PFIZER VACCINE Unknown Completed [facility] SARS-COV-2 COVID-19 PFIZER VACCINE Unknown Completed [facility] SARS-COV-2 COVID-19 PFIZER VACCINE Unknown Completed [facility] SARS-COV-2 COVID-19 PFIZER VACCINE Unknown Completed [facility] SARS-COV-2 COVID-19 PFIZER VACCINE Unknown Completed [facility] SARS-COV-2 COVID-19 PFIZER VACCINE Unknown Completed [facility] SARS-COV-2 COVID-19 PFIZER VACCINE Unknown Completed [facility] SARS-COV-2 COVID-19 PFIZER VACCINE Unknown Completed [facility] SARS-COV-2 COVID-19 PFIZER VACCINE Unknown Completed [facility] SARS-COV-2 COVID-19 PFIZER VACCINE Unknown Completed [facility] SARS-COV-2 COVID-19 PFIZER VACCINE Unknown Completed [facility] SARS-COV-2 COVID-19 PFIZER VACCINE Unknown Completed [facility] SARS-COV-2 COVID-19 PFIZER VACCINE Unknown Completed [facility] SARS-COV-2 COVID-19 PFIZER VACCINE Unknown Completed [facility] SARS-COV-2 COVID-19 PFIZER VACCINE Unknown Completed [facility] SARS-COV-2 COVID-19 PFIZER VACCINE Unknown Completed [facility] SARS-COV-2 COVID-19 PFIZER VACCINE Unknown Completed [facility] SARS-COV-2 COVID-19 PFIZER VACCINE Unknown Completed [facility] SARS-COV-2 COVID-19 PFIZER VACCINE Unknown Completed [facility] SARS-COV-2 COVID-19 PFIZER VACCINE Unknown Completed [facility] SARS-COV-2 COVID-19 PFIZER VACCINE Unknown Completed [facility] SARS-COV-2 COVID-19 PFIZER VACCINE Unknown Completed [facility] SARS-COV-2 COVID-19 PFIZER VACCINE Unknown Completed [facility] SARS-COV-2 COVID-19 PFIZER VACCINE Unknown Completed [facility] SARS-COV-2 COVID-19 PFIZER VACCINE Unknown Completed [facility] SARS-COV-2 COVID-19 PFIZER VACCINE Unknown Completed [facility] SARS-COV-2 COVID-19 PFIZER VACCINE Unknown Completed [facility] SARS-COV-2 COVID-19 PFIZER VACCINE Unknown Completed [facility] SARS-COV-2 COVID-19 PFIZER VACCINE Unknown Completed [facility] SARS-COV-2 COVID-19 PFIZER VACCINE Unknown Completed [facility] Vital Signs Vital Name Observation Time Observation Value Comments S ource height 2023-08-05 13:15:00 71 [in_i] Commo n [facility] weight 2023-08-05 13:15:00 227 [lb_av] Comm on [facility] temperature 2023-08-05 13:15:00 98.7 [degF] Com mon [facility] bmi 2023-08-05 13:15:00 31.66 kg/m2 Comm on [facility] oximetry 2023-08-05 13:15:00 99 % Commo n [facility] respiratory rate 2023-08-05 13:15:00 18 /min [facility] blood pressure systolic 2023-08-05 13:15:00 147 mm[Hg] [facility] blood pressure diastolic 2023-08-05 13:15:00 75 mm[Hg] [facility] Systolic blood pressure 2023-07-30 15:08:00 133 mm[Hg] [facility] Diastolic blood pressure 2023-07-30 15:08:00 82 mm[Hg] [facility] Heart rate 2023-07-30 15:08:00 80 /[facility] 2023-07-30 15:08:00 180.3 cm [facility] weight 2023-07-30 15:08:00 103.375 kg [facility] BMI 2023-07-30 15:08:00 31.79 kg/m2 [facility] Oxygen saturation in Arterial blood by Pulse oximetry 2023-07-30 15:08:00 98 /min [facility] height 2023-05-26 15:15:00 71 [in_i] Commo n [facility] weight 2023-05-26 15:15:00 221.6 [lb_av] Co mmon [facility] temperature 2023-05-26 15:15:00 98.6 [degF] Com mon [facility] bmi 2023-05-26 15:15:00 30.9 kg/m2 [facility] n [facility] oximetry 2023-05-26 15:15:00 99 % [facility] respiratory rate 2023-05-26 15:15:00 18 /min [facility] blood pressure systolic 2023-05-26 15:15:00 118 mm[Hg] [facility] blood pressure diastolic 2023-05-26 15:15:00 62 mm[Hg] [facility] Systolic blood pressure 2023-04-02 17:25:00 120 mm[Hg] [facility] Diastolic blood pressure 2023-04-02 17:25:00 76 mm[Hg] [facility] Heart rate 2023-04-02 17:25:00 98 /min [facility] Res[facility] rate 2023-04-02 17:25:00 18 /min [facility] Body height 2023-04-02 17:25:00 180.3 cm [facility] weight 2023-04-02 17:25:00 90.22 kg [facility] BMI 2023-04-02 17:25:00 27.74 kg/m2 [facility] Oxygen saturation in Arterial blood by Pulse oximetry 2023-04-02 17:25:00 99 /min [facility] Systolic blood pressure 2023-03-03 17:00:00 139 mm[Hg] [facility] Diastolic blood pressure 2023-03-03 17:00:00 83 mm[Hg] [facility] Body height 2023-03-03 16:53:00 180.3 cm [facility] Body weight 2023-03-03 16:53:00 95.21 kg [facility] BMI 2023-03-03 16:53:00 29.28 kg/m2 [facility] Systolic blood pressure 2023-02-22 19:51:00 119 mm[Hg] [facility] Diastolic blood pressure 2023-02-22 19:51:00 80 mm[Hg] [facility] Heart rate 2023-02-22 19:51:00 91 /min [facility] Respiratory rate 2023-02-22 19:51:00 18 /min [facility] Body height 2023-02-22 19:51:00 180.3 cm [facility] Body weight 2023-02-22 19:51:00 94.257 kg [facility] BMI 2023-02-22 19:51:00 28.98 kg/m2 [facility] Oxygen saturation in Arterial blood by Pulse oximetry 2023-02-22 19:51:00 96 /min [facility] height 2023-01-11 16:15:00 71 [in_i] [facility]mo [facility] weight 2023-01-11 16:15:00 205 [lb_av] Comm on [facility] temperature 2023-01-11 16:15:00 98.6 [degF] Com mon [facility] bmi 2023-01-11 16:15:00 28.59 kg/m2 [facility] oximetry 2023-01-11 16:15:00 99 % Commo [facility] respiratory rate 2023-01-11 16:15:00 18 /min [facility] blood pressure systolic 2023-01-11 16:15:00 132 mm[Hg] [facility] blood pressure diastolic 2023-01-11 16:15:00 68 mm[Hg] Common [facility] weight 2022-12-28 12:00:00 209 [lb_av] Comm on [facility] temperature 2022-12-28 12:00:00 97.8 [degF] Com [facility] bmi 2022-12-28 12:00:00 29.15 kg/m2 Comm on [facility] oximetry 2022-12-28 12:00:00 96 % Commo [facility] respiratory rate 2022-12-28 12:00:00 17 /min [facility] blood pressure systolic 2022-12-28 12:00:00 136 mm[Hg] [facility] blood pressure diastolic 2022-12-28 12:00:00 73 mm[Hg] [facility] height 2022-12-28 12:00:00 71 [in_i] Commo n [facility] height 2022-12-09 13:45:00 71 [in_i] Commo n [facility] weight 2022-12-09 13:45:00 218 [lb_av] Comm on [facility] temperature 2022-12-09 13:45:00 97.3 [degF] Com mon [facility] bmi 2022-12-09 13:45:00 30.4 kg/m2 [facility] oximetry 2022-12-09 13:45:00 99 % Com[facility] respiratory rate 2022-12-09 13:45:00 18 /min [facility] blood pressure systolic 2022-12-09 13:45:00 126 mm[Hg] Common [facility] blood pressure diastolic 2022-12-09 13:45:00 68 mm[Hg] [facility] Systolic blood pressure 2022-11-26 18:55:00 137 mm[Hg] [facility] Diastolic blood pressure 2022-11-26 18:55:00 85 mm[Hg] [facility] Heart rate 2022-11-26 18:55:00 98 /min [facility] Respiratory rate 2022-11-26 18:55:00 18 /min [facility] Body height 2022-11-26 18:55:00 180.3 cm [facility] Body weight 2022-11-26 18:55:00 95.482 kg [facility] BMI 2022-11-26 18:55:00 29.36 kg/m2 [facility] Oxygen saturation in Arterial blood by Pulse oximetry 2022-11-26 18:55:00 96 /min [facility] Systolic blood pressure 2022-11-18 15:57:00 108 mm[Hg] [facility] Diastolic blood pressure 2022-11-18 15:57:00 75 mm[Hg] [facility] Heart rate 2022-11-18 15:57:00 97 /min [facility] Body height 2022-11-18 15:57:00 180.3 cm [facility] Body weight 2022-11-18 15:57:00 96.843 kg [facility] BMI 2022-11-18 15:57:00 29.78 kg/m2 [facility] Oxygen saturation in Arterial blood by Pulse oximetry 2022-11-18 15:57:00 97 /min [facility] height 2022-10-28 14:30:00 71 [in_i] Commo [facility] weight 2022-10-28 14:30:00 210 [lb_av] Comm on [facility] temperature 2022-10-28 14:30:00 97.6 [degF] Com mon [facility] bmi 2022-10-28 14:30:00 29.29 kg/m2 [facility] oximetry 2022-10-28 14:30:00 99 % [facility] respiratory rate 2022-10-28 14:30:00 18 /min [facility] blood pressure systolic 2022-10-28 14:30:00 82 mm[Hg] [facility] blood pressure diastolic 2022-10-28 14:30:00 54 mm[Hg] [facility] Systolic blood pressure 2022-10-05 18:11:00 127 mm[Hg] [facility] Diastolic blood pressure 2022-10-05 18:11:00 70 mm[Hg] [facility] Heart rate 2022-10-05 18:11:00 83 /min [facility] Respiratory rate 2022-10-05 18:11:00 16 /min [facility] Body height 2022-10-05 18:11:00 180.3 cm [facility] Body weight 2022-10-05 18:11:00 101.515 kg [facility] BMI 2022-10-05 18:11:00 31.21 kg/m2 [facility] Oxygen saturation in Arterial blood by Pulse oximetry 2022-10-05 18:11:00 96 /min [facility] Systolic blood pressure 2022-09-09 13:45:00 113 mm[Hg] [facility] Diastolic blood pressure 2022-09-09 13:45:00 77 mm[Hg] [facility] Heart rate 2022-09-09 13:45:00 97 /min [facility] Body height 2022-09-09 13:45:00 180.3 cm [facility] Body weight 2022-09-09 13:45:00 92.897 kg [facility] BMI 2022-09-09 13:45:00 28.56 kg/m2 [facility] in Arterial blood by Pulse oximetry 2022-09-09 13:45:00 94 /min [facility] Body weight 2022-08-05 15:34:00 102.785 kg [facility] BMI 2022-08-05 15:34:00 31.60 kg/m2 [facility] Systolic blood pressure 2022-08-02 03:00:00 152 mm[Hg] [facility] Diastolic blood pressure 2022-08-02 03:00:00 127 mm[Hg] [facility] Heart rate 2022-08-02 03:00:00 72 /min [facility] Respiratory rate 2022-08-02 03:00:00 17 /min [facility] Oxygen saturation in Arterial blood by Pulse oximetry 2022-08-02 03:00:00 96 /min [facility] Body temperature 2022-08-01 23:07:00 36.61 [facility] Body height 2022-08-01 23:07:00 180.3 cm [facility] Body weight 2022-08-01 23:07:00 104.327 kg [facility] BMI 2022-08-01 23:07:00 32.08 kg/m2 [facility] Systolic blood pressure 2022-07-16 15:38:00 146 mm[Hg] [facility] Diastolic blood pressure 2022-07-16 15:38:00 85 mm[Hg] [facility] Heart rate 2022-07-16 15:35:00 91 /min [facility] Body weight 2022-07-16 15:35:00 102.377 kg [facility] BMI 2022-07-16 15:35:00 31.48 kg/m2 [facility] Oxygen saturation in Arterial blood by Pulse oximetry 2022-07-16 15:35:00 97 /min [facility] Systolic blood pressure 2022-07-13 16:41:00 161 mm[Hg] [facility] Diastolic blood pressure 2022-07-13 16:41:00 88 mm[Hg] [facility] Heart rate 2022-07-13 16:41:00 80 /min [facility] Body height 2022-07-13 16:35:00 180.3 cm [facility] Body weight 2022-07-13 16:35:00 103.375 kg [facility] BMI 2022-07-13 16:35:00 31.79 kg/m2 [facility] Body weight 2022-06-08 16:26:00 98.975 kg [facility] BMI 2022-06-08 16:26:00 30.43 kg/m2 [facility] Body weight 2022-05-08 18:09:00 101.152 kg [facility] BMI 2022-05-08 18:09:00 31.10 kg/m2 [facility] Systolic blood pressure 2022-04-23 19:23:00 135 mm[Hg] [facility] Diastolic blood pressure 2022-04-23 19:23:00 85 mm[Hg] [facility] Heart rate 2022-04-23 19:23:00 107 /min [facility] Body height 2022-04-23 19:23:00 180.3 cm [facility] Body weight 2022-04-23 19:23:00 102.74 kg [facility] BMI 2022-04-23 19:23:00 31.59 kg/m2 [facility] Oxygen saturation in Arterial blood by Pulse oximetry 2022-04-23 19:23:00 98 /min [facility] Systolic blood pressure 2022-04-16 20:36:00 135 mm[Hg] [facility] Diastolic blood pressure 2022-04-16 20:36:00 84 mm[Hg] [facility] Heart rate 2022-04-16 20:36:00 81 /min [facility] Body height 2022-04-16 20:36:00 180.3 cm [facility] Body weight 2022-04-16 20:36:00 102.967 kg [facility] BMI 2022-04-16 20:36:00 31.66 kg/m2 [facility] Oxygen saturation in Arterial blood by Pulse oximetry 2022-04-16 20:36:00 100 /min [facility] Systolic blood pressure 2022-04-16 20:08:00 135 mm[Hg] [facility] Diastolic blood pressure 2022-04-16 20:08:00 84 mm[Hg] [facility] Heart rate 2022-04-16 20:08:00 81 /min [facility] Body temperature 2022-04-16 20:08:00 35.89 [facility] Respiratory rate 2022-04-16 20:08:00 18 /min [facility] Body height 2022-04-16 20:08:00 180.3 cm [facility] Body weight 2022-04-16 20:08:00 102.967 kg [facility] BMI 2022-04-16 20:08:00 31.66 kg/m2 [facility] Oxygen saturation in Arterial blood by Pulse oximetry 2022-04-16 20:08:00 100 /min [facility] Body weight 2022-04-08 17:36:00 105.96 kg [facility] BMI 2022-04-08 17:36:00 32.58 kg/m2 [facility] Body weight 2022-03-11 13:48:00 110.768 kg [facility] BMI 2022-03-11 13:48:00 34.06 kg/m2 [facility] Systolic blood pressure 2022-02-23 01:15:00 125 mm[Hg] [facility] Diastolic blood pressure 2022-02-23 01:15:00 66 mm[Hg] [facility] Heart rate 2022-02-23 01:15:00 75 /min [facility] Respiratory rate 2022-02-23 01:15:00 18 /min [facility] Oxygen saturation in Arterial blood by Pulse oximetry 2022-02-23 01:15:00 96 /min [facility] Body temperature 2022-02-23 00:04:00 37.33 [facility] Body height 2022-02-23 00:04:00 180.3 cm [facility] Body weight 2022-02-23 00:04:00 114.306 kg [facility] BMI 2022-02-23 00:04:00 35.15 kg/m2 [facility] weight 2022-02-11 14:34:00 114.397 kg [facility] BMI 2022-02-11 14:34:00 35.17 kg/m2 [facility] Systolic blood pressure 2022-02-03 08:58:48 133 mm[Hg] [facility] Diastolic blood pressure 2022-02-03 08:58:48 79 mm[Hg] [facility] Heart rate 2022-02-03 08:53:00 101 /min [facility] Respiratory rate 2022-02-03 08:53:00 18 /min [facility] Body height 2022-02-03 08:53:00 180.3 cm [facility] Body weight 2022-02-03 08:53:00 136.079 kg [facility] BMI 2022-02-03 08:53:00 41.84 kg/m2 [facility] Oxygen saturation in Arterial blood by Pulse oximetry 2022-02-03 08:53:00 96 /min [facility] Systolic blood pressure 2022-01-24 05:02:00 120 mm[Hg] [facility] Diastolic blood pressure 2022-01-24 05:02:00 67 mm[Hg] [facility] Heart rate 2022-01-24 05:02:00 104 /min [facility] Respiratory rate 2022-01-24 05:02:00 18 /min [facility] Body height 2022-01-24 05:02:00 180.3 cm [facility] Body weight 2022-01-24 05:02:00 136.079 kg [facility] BMI 2022-01-24 05:02:00 41.84 kg/m2 [facility] Oxygen saturation in Arterial blood by Pulse oximetry 2022-01-24 05:02:00 95 /min [facility] Body weight 2022-01-14 14:45:00 129.729 kg [facility] BMI 2022-01-14 14:45:00 39.89 kg/m2 [facility] Systolic blood pressure 2021-12-18 18:15:00 123 mm[Hg] [facility] Diastolic blood pressure 2021-12-18 18:15:00 74 mm[Hg] [facility] Heart rate 2021-12-18 18:15:00 79 /min [facility] Body temperature 2021-12-18 18:15:00 36.61 [facility] Respiratory rate 2021-12-18 18:15:00 18 /min [facility] Body height 2021-12-18 18:15:00 180.3 cm [facility] Body weight 2021-12-18 18:15:00 127.461 kg [facility] BMI 2021-12-18 18:15:00 39.19 kg/m2 [facility] Oxygen saturation in Arterial blood by Pulse oximetry 2021-12-18 18:15:00 99 /min [facility] Procedures Procedure Date / Time Performed Performing Clinician Source POCT HEMOGLOBIN A1C TEST 2023-07-30 15:10:00 Hai Wade [facility] INSURANCE CORRESPONDENCE 2023-07-22 06:01:00 Doc tor Unassigned, [facility] PVR 2023-06-29 00:00:00 Common [facility] EXTERNAL PROVIDER RECORDS 2023-03-18 05:01:00 Do ctor Unassigned, [facility] PATIENT QUESTIONNAIRE 2023-03-03 05:01:00 Doctor Unassigned, [facility] XR CHEST 2 VW 2023-02-22 20:53:34 Osmany Newton [facility] CONSENT/REFUSAL FOR DIAGNOSIS AND TREATMENT 2023-02-22 19:23:08 Doctor Unassigned, [facility] POCT HEMOGLOBIN A1C TEST 2022-11-18 15:56:00 Cheri Simms [facility] PATIENT FINANCIAL POLICY 2022-09-09 13:39:51 Doctor Unassigned, [facility] EKG-12 LEAD 2022-08-02 02:49:13 [facility] GLUCOSE(AGE >30DAYS) 2022-08-02 02:19:00 Penny Sue [facility] POCT GLUCOSE (AUTOMATED) 2022-08-02 02:18:00 Penny Sue [facility] POCT GLUCOSE (AUTOMATED) 2022-08-02 00:37:00 Penny Sue [facility] URINALYSIS 2022-08-01 23:57:00 [facility] HEAD 2022-08-01 23:56:50 Penny Sue [facility] CT ANGIOGRAM NECK 2022-08-01 23:56:50 Penny Sue [facility] XR CHEST 1 VW 2022-08-01 23:55:54 Penny [facility] MAGNESIUM 2022-08-01 23:23:00 Penny Sue [facility] TROPONIN I 2022-08-01 23:23:00 Penny Sue [facility] COMP. METABOLIC PANEL ([id number]) 2022-08-01 23:23:00 Penyn Sue [facility] CBC WITH DIFF 2022-08-01 23:23:00 Penny Sue [facility] CONSENT/REFUSAL FOR DIAGNOSIS AND TREATMENT 2022-08-01 23:18:53 Doctor Unassigned, [facility] ASSIGNMENT OF BENEFITS 2022-08-01 23:18:28 Docto r Unassigned, [facility] POCT HEMOGLOBIN A1C TEST 2022-07-13 16:43:00 Cheri Simms [facility] POCT HEMOGLOBIN A1C TEST 2022-04-23 20:45:00 Tammi Newton [facility] NOTICE OF PRIVACY PRACTICES 2022-02-22 23:55:21 Doctor Unassigned, [facility] CONSENT/REFUSAL FOR DIAGNOSIS AND TREATMENT 2022-02-22 23:54:33 Doctor Unassigned, [facility] CONSENT/REFUSAL FOR DIAGNOSIS AND TREATMENT 2022-02-11 13:55:49 Doctor Unassigned, [facility] CONSENT/REFUSAL FOR DIAGNOSIS AND TREATMENT 2022-01-24 04:57:37 Doctor Unassigned, [facility] Encounters Start Date/Time End Date/Time Encounter Type Admission Type Attending Clinicians Care Facility Care Department Encounter ID Source 2022-10-28 13:34:02 Outpatient Osmany Newton [facility] [id number] [facility] 2023-08-05 00:00:00 2023-08-05 00:00:00 OFFICE VISIT ESTAB PT LEVEL 4 [facility] [id number] [facility] 2023-07-30 11:00:00 2023-07-30 11:15:00 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, Juan Jose Wade [facility], [facility] 1.840.114 350.1.13.10 4.2.7.2.686 [id number] [facility] 2023-07-30 10:30:00 2023-07-30 11:01:[address] [facility] [id number] [facility] 2023-07-30 10:30:00 2023-07-30 11:01:25 [facility] 1.840.114 350.1.13.10 4.2.7.2.686 [id number] 220 [id number] [facility] 2023-07-30 00:00:00 2023-07-30 00:00:00 Refill Dino Newtonony [facility] 1.840.114 350.1.13.10 4.2.7.2.686 [id number] [facility] 2023-07-22 00:00:00 2023-07-22 00:00:00 Orders Only Doctor Unassigned, [facility] 1.84.114 350.1.13.10 4.2.7.2.686 [id number] [id number] [facility] 2023-06-29 00:00:00 2023-06-29 00:00:00 ([place]) Nurse Visit STLMLC STLMLC [id number] [facility] 2023-06-24 00:00:00 2023-06-24 00:00:00 Nurse Triage Susu Portillo [facility] 1.2840.114 350.1.13.10 4.2.7.2.686 [id number] [facility] 2023-06-21 00:00:00 2023-06-21 00:00:00 Refill Newton [facility] 1..840.114 350.1.13.10 4.2.7.2.686 [id number] 044 [id number] [facility] 2023-06-18 00:00:00 2023-06-18 00:00:00 Telephone Newton [facility] 1.2.840.114 350.1.13.10 4.2.7.2.686 [id number] 044 [id number] [facility] 2023-06-16 00:00:00 2023-06-16 00:00:00 Refill Aman [facility] 1.2.840.114 350.1.13.10 4.2.7.2.686 [id number] 044 [id number] [facility] 2023-05-26 00:00:00 2023-05-26 00:00:00 OFFICE VISIT ESTAB PT LEVEL 4 STLMLC STLMLC [id number] [facility] 2023-05-24 00:00:00 2023-05-24 00:00:00 Refill Newton [facility] 1.2.840.114 350.1.13.10 4.2.7.2.686 [id number] 044 [id number] [facility] 2023-05-20 00:00:00 2023-05-20 00:00:00 Refill Cheri Sim[facility] 1.2.840.114 350.1.13.10 4.2.7.2.686 [id number] 220 [id number] [facility] 2023-05-19 00:00:00 2023-05-19 00:00:00 Telephone Manuela Herr [facility] 1.2840.114 350.1.13.10 4.2.7.2.686 [id number] 220 [id number] [facility] 2023-05-15 00:00:00 2023-05-15 00:00:00 Refill Cheri Simms [facility] 1.2.840.114 350.1.13.10 4.2.7.2.686 [id number] 220 [id number] [facility] 2023-04-24 00:00:00 2023-04-24 00:00:00 Refill Osmany Newton [facility] 1.2.840.114 350.1.13.10 4.2.7.2.686 [id number] 044 [id number] [facility] 2023-04-20 00:00:00 2023-04-20 00:00:00 ([place]) Nurse Visit STLC STLC [id number] [facility] 2023-04-02 11:30:00 2023-04-02 12:27:33 Outpatient R NICHOLE WADE [facility] [id number] [facility] 2023-04-02 11:30:00 2023-04-02 12:27:33 Office Visit Nichole Wade [facility] 1.2.840.114 350.1.13.10 4.2.7.2.686 [id number] [facility] 2023-03-29 00:00:00 2023-03-29 00:00:00 [facility] 1.2.840.114 350.1.13.10 4.2.7.2.686 [id number] 044 [id number] [facility] 2023-03-18 00:00:00 2023-03-18 00:00:00 Orders Only Doctor Unassigned, [facility] 1.2840.114 350.1.13.10 4.2.7.2.686 [id number] [id number] [facility] 2023-03-16 00:00:00 2023-03-16 00:00:00 Refill Aman [facility] 1.2.840.114 350.1.13.10 4.2.7.2.686 [id number] 044 [id number] [facility] 2023-03-15 00:00:00 2023-03-15 00:00:00 Refill Newton, [facility] 1.2.840.114 350.1.13.10 4.2.7.2.686 [id number] 044 [id number] [facility] 2023-03-15 00:00:00 2023-03-15 00:00:00 ([place]) Nurse Visit [facility] [id number] [facility] 2023-03-15 00:00:00 2023-03-15 00:00:00 [facility] [id number] 2023-03-14 00:00:00 2023-03-14 00:00:00 Refill Aman [facility] 1.2.840.114 350.1.13.10 4.2.7.2.686 [id number] 044 [id number] [facility] 2023-03-12 00:00:00 2023-03-12 00:00:00 (TEL) [facility] [id number] 2023-03-10 00:00:00 2023-03-10 00:00:00 Refill Sandra, Cheri [facility] 1.2.840.114 350.1.13.10 4.2.7.2.686 [id number] 220 [id number] [facility] 2023-03-10 00:00:00 2023-03-10 00:00:00 Telephone Aman [facility] 1.2.840.114 350.1.13.10 4.2.7.2.686 [id number] 044 [id number] [facility] 2023-03-06 00:00:00 2023-03-06 00:00:00 Refill Cheri Simms [facility] 1.2.840.114 350.1.13.10 4.2.7.2.686 [id number] 220 [id number] [facility] 2023-03-05 00:00:00 2023-03-05 00:00:00 Telephone Aman [facility] 1.2.840.114 350.1.13.10 4.2.7.2.686 [id number] 044 [id number] [facility] 2023-03-03 12:00:00 2023-03-03 15:35:36 Outpatient R CHERI SIMMS [facility] [id number] [facility] 2023-03-03 12:00:00 2023-03-03 15:35:36 Office Visit Sandra Hickman [facility] 1.2.840.114 350.1.13.10 4.2.7.2.686 [id number] 220 [id number] [facility] 2023-03-03 00:00:00 2023-03-03 00:00:00 Orders Only Doctor Unassigned, [facility] 1.2840.114 350.1.13.10 4.2.7.2.686 [id number] [id number] [facility] 2023-02-27 00:00:00 2023-02-27 00:00:00 Refill Osmany Newton [facility] 1..840.114 350.1.13.10 4.2.7.2.686 [id number] 044 [id number] [facility] 2023-02-26 00:00:00 2023-02-26 00:00:00 Patient Secure Msg Doctor Unassigned, [facility] 1.2.840.114 350.1.13.10 4.2.7.2.686 [id number] 044 [id number] [facility] 2023-02-25 00:00:00 2023-02-25 00:00:00 Patient Secure Msg Doctor Unassigned, [facility] 1.2.840.114 350.1.13.10 4.2.7.2.686 [id number] [facility] 2023-02-24 08:45:00 2023-02-24 08:45:00 Outpatient OSMANY MARCOS [facility] [id number] [facility] 2023-02-24 08:45:00 2023-02-24 08:45:00 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, Osmany Hermosillo [facility] 1.2.840.114 350.1.13.10 4.2.7.2.686 [id number] [facility] 2023-02-23 00:00:00 2023-02-23 00:00:00 Patient Secure Msg Doctor Unassigned, [facility] 1.2.840.114 350.1.13.10 4.2.7.2.686 [id number] 220 [id number] [facility] 2023-02-22 15:27:35 2023-02-22 23:59:00 Hospital Encounter Osmany Newton [facility] 1.2.840.114 350.1.13.10 4.2.7.2.686 [id number] [facility] 2023-02-22 15:00:00 2023-02-22 15:30:00 Office Visit Osmany Newton [facility] 1.2840.114 350.1.13.10 4.2.7.2.686 [id number] 044 [id number] [facility] 2023-02-22 15:00:00 2023-02-22 15:26:44 Outpatient R OSMANY NEWTON [facility] [id number] [facility] 2023-02-22 00:00:00 2023-02-22 00:00:00 Orders Only Doctor Unassigned, [facility] 1.2840.114 350.1.13.10 4.2.7.2.686 [id number] [facility] 2023-02-17 14:15:00 2023-02-17 14:15:00 Outpatient R OSMANY NEWTON [facility] [id number] [facility] 2023-02-06 00:00:00 2023-02-06 00:00:00 Cheri Aguilar [facility] 1.2840.114 350.1.13.10 4.2.7.2.686 [id number] 220 [id number] [facility] 2023-02-04 00:00:00 2023-02-04 00:00:00 Telephone Manuela Herr [facility] 1.2840.114 350.1.13.10 4.2.7.2.686 [id number] 220 [id number] [facility] 2023-01-31 00:00:00 2023-01-31 00:00:00 Refill Osmany Newton [facility] 1.2840.114 350.1.13.10 4.2.7.2.686 [id number] 044 [id number] [facility] 2023-01-29 00:00:00 2023-01-29 00:00:00 Refill Cheri Simms [facility] 1.840.114 350.1.13.10 4.2.7.2.686 [id number] [facility] 2023-01-23 00:00:00 2023-01-23 00:00:00 Refill Aman [facility] 1.2840.114 350.1.13.10 4.2.7.2.686 [id number] 044 [id number] [facility] 2023-01-17 00:00:00 2023-01-17 00:00:00 Refill Aman [facility] 1.2840.114 350.1.13.10 4.2.7.2.686 [id number] [id number] [facility] 2023-01-16 00:00:00 2023-01-16 00:00:00 Refill Cheri Simms [facility] MEDICAL OFFICE BUILDING 1..840.114 350.1.13.10 4.2.7.2.686 [id number] [facility] 2023-01-11 00:00:00 2023-01-11 00:00:00 OFFICE VISIT ESTAB PT LEVEL 5 STLMLC STLMLC [id number] [facility] 2023-01-11 00:00:00 2023-01-11 00:00:00 Refill Cheri Simms [facility] MEDICAL OFFICE BUILDING 1..840.114 350.1.13.10 4.2.7.2.686 [id number] 220 [id number] [facility] 2023-01-08 00:00:00 2023-01-08 00:00:00 Telephone [facility] 1.840.114 350.1.13.10 4.2.7.2.686 [id number] 220 [id number] [facility] 2022-12-28 00:00:00 2022-12-28 00:00:00 OFFICE VISIT ESTAB PT LEVEL 3 STLMLC STLMLC [id number] [facility] 2022-12-17 00:00:00 2022-12-17 00:00:00 (PROC) Procedure STLMLC STLMLC [id number] [facility] 2022-12-09 00:00:00 2022-12-09 00:00:00 OFFICE VISIT ESTAB PT LEVEL 2 STLMLC STLMLC [id number] [facility] 2022-12-04 00:00:00 2022-12-04 00:00:00 Telephone Manuela Herr [facility] 1.840.114 350.1.13.10 4.2.7.2.686 [id number] 220 [id number] [facility] 2022-11-26 14:00:00 2022-11-26 14:15:00 Office Visit Osmany Newton [facility] 1.2.840.114 350.1.13.10 4.2.7.2.686 [id number] [id number] [facility] 2022-11-26 14:00:00 2022-11-26 14:00:00 Outpatient R AMAN OSMANY [facility] [id number] [facility] 2022-11-18 11:00:00 2022-11-18 11:41:30 Outpatient R CHERI SIMMS [facility] [id number] [facility] 2022-11-18 11:00:00 2022-11-18 11:41:30 Office Visit Cheri Simms [facility] MEDICAL OFFICE BUILDING 1.2.840.114 350.1.13.10 4.2.7.2.686 [id number] [facility] 2022-11-09 00:00:00 2022-11-09 00:00:00 Refill Cheri Simms [facility] MEDICAL OFF[facility] BUILD[facility] 1.2.840.114 350.1.13.10 4.2.7.2.686 [id number] 220 [id number] [facility] 2022-11-04 00:00:00 2022-11-04 00:00:00 Refill Janie Pad[facility] 1.2.840.114 350.1.13.10 4.2.7.2.686 [id number] [facility] 2022-10-28 00:00:00 2022-10-28 00:00:00 OFFICE VISIT ESTAB PT LEVEL 4 STLMLC STLMLC [id number] [facility] 2022-10-26 00:00:00 2022-10-26 00:00:00 [facility] 1.2840.114 350.1.13.10 4.2.7.2.686 [id number] 044 [id number] [facility] 2022-10-21 00:00:00 2022-10-21 00:00:[address] [facility] YONATHAN [facility] 1.2840.114 350.1.13.10 4.2.7.2.686 [id number] 044 [id number] [facility] 2022-10-20 00:00:00 2022-10-20 00:00:00 [facility]ill [facility] MED[facility] OFF[facility] BUILD[facility] 1.2840.114 350.1.13.10 4.2.7.2.686 [id number] 044 [id number] [facility] 2022-10-05 13:30:00 2022-10-05 13:45:00 Office Visit Aman [facility] MEDICAL OFFICE BUILDING 1.2840.114 350.1.13.10 4.2.7.2.686 [id number] 044 [id number] [facility] 2022-10-05 13:30:00 2022-10-05 13:30:00 Outpatient R OSMANY NEWTON [facility] [id number] [facility] 2022-09-30 00:00:00 2022-09-30 00:00:00 [facility] OFF[facility] BUILD[facility] 1.2840.114 350.1.13.10 4.2.7.2.686 [id number] 044 [id number] [facility] 2022-09-17 00:00:00 2022-09-17 00:00:00 [facility] 1.2840.114 350.1.13.10 4.2.7.2.686 [id number] 044 [id number] [facility] 2022-09-14 00:00:00 2022-09-14 00:00:00 Telephone Osmany Newton [facility] 1.2840.114 350.1.13.10 4.2.7.2.686 [id number] 044 [id number] [facility] 2022-09-09 09:00:00 2022-09-09 09:30:00 Office Visit Osmayn Newton [facility] MEDICAL OFFICE BUILD[facility] 1.0.114 350.1.13.10 4.2.7.2.686 [id number] 044 [id number] [facility] 2022-09-09 09:00:00 2022-09-09 09:00:00 [facility] [id number] 2022-09-09 00:00:00 2022-09-09 00:00:00 Orders Only Doctor Unassigned, [facility] 1.0.114 350.1.13.10 4.2.7.2.686 [id number] [facility] 2022-09-09 00:00:00 2022-09-09 00:00:00 Telephone Osmany Newton [facility] OFF[facility] BUILD[facility] 1.0.114 350.1.13.10 4.2.7.2.686 [id number] 044 [id number] [facility] 2022-08-28 00:00:00 2022-08-28 00:00:00 Refill Aman [facility] MED[facility] OFF[facility] BUILD[facility] 1.2840.114 350.1.13.10 4.2.7.2.686 [id number] 044 [id number] [facility] 2022-08-28 00:00:00 2022-08-28 00:00:00 Refill Cheri Simms [facility] 1.840.114 350.1.13.10 4.2.7.2.686 [id number] 044 [id number] [facility] 2022-08-23 00:00:00 2022-08-23 00:00:00 Refill Aman [facility] 1.840.114 350.1.13.10 4.2.7.2.686 [id number] 044 [id number] [facility] 2022-08-20 00:00:00 2022-08-20 00:00:00 Refill Aman Osmany [facility] MED[facility] OFF[facility] BUILD[facility] 1.840.114 350.1.13.10 4.2.7.2.686 [id number] 044 [id number] [facility] 2022-08-15 00:00:00 2022-08-15 00:00:00 Refill Aman [facility] MEDICAL OFFICE BUILD[facility] 1.840.114 350.1.13.10 4.2.7.2.686 [id number] 044 [id number] [facility] 2022-08-05 09:00:00 2022-08-05 15:08:40 Nurse Visit Nurse, [facility] 1.840.114 350.1.13.10 4.2.7.2.686 [id number] [facility] 2022-08-05 09:00:00 2022-08-05 09:00:00 Outpatient [facility] [id number] [facility] 2022-08-05 00:00:00 2022-08-05 00:00:00 Patient Secure Msg Sandra formerly [facility]AR[facility] MED[facility] OFF[facility] BUILDING 1.2840.114 350.1.13.10 4.2.7.2.686 [id number] [facility] 2022-08-01 18:09:00 2022-08-01 22:07:00 Emergency X [facility] [id number] [facility] 2022-08-01 18:09:00 2022-08-01 22:07:00 Emergency Penny Sue Rosalva [facility] 1.2.840.114 350.1.13.10 4.2.7.2.686 [id number] [facility] 2022-07-30 00:00:00 2022-07-30 00:00:00 Refsherri Newton [facility] CESAR?VIKY [facility] MEDICAL OFFICE BUILDING 1..840.114 350.1.13.10 4.2.7.2.686 [id number] [facility] 2022-07-19 00:00:00 2022-07-19 00:00:00 Refill Aman Osmany [facility] CESAR?CATATamm[facility] MEDICAL OFFICE BUILDING 1..840.114 350.1.13.10 4.2.7.2.686 [id number] [facility] 2022-07-16 09:45:00 2022-07-16 10:08:04 Outpatient R OSMANY [facility] [id number] [facility] 2022-07-16 09:45:00 2022-07-16 10:00:00 Office Visit Aman Osmany [facility] CESAR?VIKY [facility] MEDICAL OFFICE BUILDING 1..840.114 350.1.13.10 4.2.7.2.686 [id number] [facility] 2022-07-13 11:30:00 2022-07-13 11:45:00 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, Cheri Oneal [facility] MEDICAL OFFICE BUILDING 1..840.114 350.1.13.10 4.2.7.2.686 [id number] [facility] 2022-07-13 11:00:00 2022-07-13 11:23:39 Outpatient R CHERI SIMMS [facility] [id number] [facility] 2022-07-13 11:00:00 2022-07-13 11:23:39 Office Visit Cheri Simms [facility] CESAR?VIKY [facility] MEDICAL OFFICE BUILDING 1.2840.114 350.1.13.10 4.2.7.2.686 [id number] [facility] 2022-07-08 10:00:00 2022-07-08 10:00:03 Outpatient R AMAN OSMANY [facility] [id number] [facility] 2022-07-08 10:00:00 2022-07-08 10:00:03 Nurse Visit Nurse, [facility] Osmany Fritz [facility] NAL BUILDING 1.840.114 350.1.13.10 4.2.7.2.686 [id number] [facility] 2022-07-08 00:00:00 2022-07-08 00:00:00 Refill Osmany Newton [facility] MEDICAL OFFICE BUILDING 1..840.114 350.1.13.10 4.2.7.2.686 [id number] [facility] 2022-07-03 00:00:00 2022-07-03 00:00:00 Refill Aman [facility] CESAR?[facility] MED[facility] OFF[facility] BU[facility] 1.2.840.114 350.1.13.10 4.2.7.2.686 [id number] [facility] 2022-06-22 00:00:00 2022-06-22 00:00:00 Refill Aman [facility] CESAR?VIKY P[facility]YA [facility] OFF[facility] BUILDING 1.2840.114 350.1.13.10 4.2.7.2.686 [id number] 044 [id number] [facility] 2022-06-08 10:00:00 2022-06-08 10:58:03 Outpatient R FABBY [facility] [id number] [facility] 2022-06-08 10:00:00 2022-06-08 10:58:03 Nurse Visit [facility], [facility] 1.2840.114 350.1.13.10 4.2.7.2.686 [id number] [facility] 2022-06-08 00:00:00 2022-06-08 00:00:00 Refill PadronJanie [facility] NAL BUILDING 1.2840.114 350.1.13.10 4.2.7.2.686 [id number] [facility] 2022-06-04 00:00:00 2022-06-04 00:00:00 Refill Aman [facility] CESAR?VIKY [facility]ARA [facility] OFF[facility] BUILDING 1.284.114 350.1.13.10 4.2.7.2.686 [id number] 044 [id number] [facility] 2022-05-28 00:00:00 2022-05-28 00:00:00 Refill Aman [facility] CESAR?[facility] BUILD[facility] 1.2840.114 350.1.13.10 4.2.7.2.686 [id number] 044 [id number] [facility] 2022-05-18 00:00:00 2022-05-18 00:00:00 Refill Aman [facility] CESAR?[facility] 1.2.114 350.1.13.10 4.2.7.2.686 [id number] 044 [id number] [facility] 2022-05-08 09:00:00 2022-05-08 09:12:50 Outpatient R FONTANA, DULCE [facility] [id number] [facility] 2022-05-08 09:00:00 2022-05-08 09:12:50 Nurse Visit Nurse, [facility] Kennedy SawyerFontanaDulce lehman [facility] BUILDING 1..840.114 350.1.13.10 4.2.7.2.686 [id number] [facility] 2022-04-23 13:45:00 2022-04-23 13:59:31 [facility] [id number] [facility] 2022-04-23 13:45:00 2022-04-23 13:59:31 Office Visit Osmany [facility] 1..840.114 350.1.13.10 4.2.7.2.686 [id number] 044 [id number] [facility] 2022-04-17 00:00:00 2022-04-17 00:00:00 Refill Jenny Denton [facility] OFF[facility] BUILD[facility] 1..840.114 350.1.13.10 4.2.7.2.686 [id number] [id number] [facility] 2022-04-16 15:00:00 2022-04-16 15:02:43 Office Visit Cheko Sequeira [facility] BUILDING 1..840.114 350.1.13.10 4.2.7.2.686 [id number] [facility] 2022-04-16 14:30:00 2022-04-16 15:01:22 Outpatient R DULCE FONTANA [facility] [id number] [facility] 2022-04-16 14:30:00 2022-04-16 15:00:00 Office Visit Addi [facility] 1.2.840.114 350.1.13.10 4.2.7.2.686 [id number] [facility] 2022-04-08 09:00:00 2022-04-08 10:20:48 Outpatient R FABBY [facility] [id number] [facility] 2022-04-08 09:00:00 2022-04-08 10:20:48 Nurse Visit [facility], [facility] 1..840.114 350.1.13.10 4.2.7.2.686 [id number] [facility] 2022-04-07 00:00:00 2022-04-07 00:00:00 RefOsmany Beal [facility]?VIKY MAYDADAPHNE MEDICAL OFFICE BUILDING 1..840.114 350.1.13.10 4.2.7.2.686 [id number] 044 [id number] [facility] 2022-03-20 11:00:00 2022-03-20 11:00:00 Outpatient R [facility] [id number] [facility] 2022-03-11 09:30:00 2022-03-11 09:30:00 Outpatient R FABBY [facility] [id number] [facility] 2022-03-11 09:30:00 2022-03-11 09:30:00 Nurse Visit [facility], [facility] 1..840.114 350.1.13.10 4.2.7.2.686 [id number] [facility] 2022-02-22 19:07:00 2022-02-22 20:44:00 Emergency X SAMANTHA LANDRYIO [facility] ERT [id number] [facility] 2022-02-22 19:07:00 2022-02-22 20:44:00 Emergency Servando Landry C [facility] 1.2840.114 350.1.13.10 4.2.7.2.686 [id number] [id number] [facility] 2022-02-22 00:00:00 2022-02-22 00:00:00 Orders Only Doctor Unassigned, [place] [facility] 1.2840.114 350.1.13.10 4.2.7.2.686 [id number] [facility] 2022-02-11 09:30:00 2022-02-11 10:09:40 Outpatient R FABBY [facility] [id number] [facility] 2022-02-11 09:30:00 2022-02-11 10:09:40 Nurse Visit Nurse, [facility] Fabby [facility] 1.20.114 350.1.13.10 4.2.7.2.686 [id number] [facility] 2022-02-11 00:00:00 2022-02-11 00:00:00 Orders Only Doctor Unassigned, [place] [facility] 1.2840.114 350.1.13.10 4.2.7.2.686 [id number] [id number] [facility] 2022-02-03 03:59:00 2022-02-03 04:45:00 Emergency X DANNY BROCK [facility] ERT [id number] [facility] 2022-02-03 03:59:00 2022-02-03 04:45:00 Emergency Danny Brock [facility] 1.2840.114 350.1.13.10 4.2.7.2.686 [id number] 084 [id number] [facility] 2022-01-24 00:19:00 2022-01-24 01:18:00 Emergency X Joe CORDERO [facility] ERT [id number] [facility] 2022-01-24 00:19:00 2022-01-24 01:18:00 Emergency Joe Cordero [facility] 1.2.840.114 350.1.13.10 4.2.7.2.686 [id number] [facility] 2022-01-14 09:30:00 2022-01-14 09:39:08 Outpatient MAMI JACKSONFORMERLY [facility] [id number] [facility] 2022-01-14 09:30:00 2022-01-14 09:39:08 Nurse Visit Nurse, [facility] Fabby [facility] PROFESSIO NAL BUILDING 1.2.840.114 350.1.13.10 4.2.7.2.686 [id number] [facility] 2021-12-24 00:00:00 2021-12-24 00:00:00 Telephone Osmany Newton [facility]?VIKY OHARADAPHNE MEDICAL OFFICE BUILDING 1.2.840.114 350.1.13.10 4.2.7.2.686 [id number] 044 [id number] [facility] 2021-12-22 00:00:00 2021-12-22 00:00:00 Outpatient JANIE HATFIELD [facility] [id number] [facility] 2021-12-22 00:00:00 2021-12-22 00:00:00 [facility] [id number] [facility] 2021-12-18 13:30:00 2021-12-18 14:47:49 Outpatient MAMI JACKSONFORMERLY [facility] [id number] [facility] 2021-12-18 13:30:00 2021-12-18 14:47:49 Office Visit Cheko Sequeira Rm, Adc Surg Spec [facility] NAL BUILDING 1.2.840.114 350.1.13.10 4.2.7.2.686 [id number] [facility] 2021-12-18 13:30:00 2021-12-18 14:47:49 Outpatient R CHEKO SEQUEIRA [facility] [id number] [facility] 2021-12-15 11:45:00 2021-12-15 12:00:00 Saw Handle Assembler Visit 2, [facility] 1.2.840.114 350.1.13.10 4.2.7.2.686 [id number] [facility] 2021-12-15 09:30:00 2021-12-15 11:18:29 Outpatient R JANIE PADRON [facility] [id number] [facility] 2021-12-15 09:30:00 2021-12-15 11:18:29 Office Visit Rika Padrontney [facility] 1.2.840.114 350.1.13.10 4.2.7.2.686 [id number] [facility] 2021-12-15 09:30:00 2021-12-15 09:30:00 Outpatient R JANIE PADRON [facility] [id number] [facility] 2021 16:00:00 2021 16:00:00 [facility] 1.2.840.114 350.1.13.10 4.2.7.2.686 [id number] 204 [id number] [facility] 2021 11:15:00 2021 11:30:00 Saw Handle Assembler Visit 2, Adc Lab [facility] 1.2.840.114 350.1.13.10 4.2.7.2.686 [id number] [facility] 2021 16:00:00 2021 10:45:05 [facility] [id number] [facility] 2021 00:00:00 2021 00:00:00 Osmany Cam [facility]?VIKY PANDYA MED[facility] OFFICE BUILDING 1.2.840.114 350.1.13.10 4.2.7.2.686 [id number] 044 [id number] [facility] 2021-12-10 15:30:00 2021-12-10 15:30:00 [facility] [id number] [facility] 2021-11-20 00:00:00 2021-11-20 00:00:00 Telephone Vito [facility] BUILDING 1.2.840.114 350.1.13.10 4.2.7.2.686 [id number] [facility] 2021-11-19 14:00:00 2021-11-19 14:00:00 [facility] [id number] [facility] 2021-11-18 15:27:00 2021-11-18 21:09:00 Emergency X SERVANDO LANDRY [facility] ERT [id number] [facility] 2021-11-18 15:27:00 2021-11-18 21:09:00 Emergency Servando Landry [facility] 1.2.840.114 350.1.13.10 4.2.7.2.686 [id number] [facility] 2021-11-18 00:00:00 2021-11-18 00:00:00 Telephone Janie Padron [facility] PROFESSIO NAL BUILDING 1.2.840.114 350.1.13.10 4.2.7.2.686 [id number] 204 [id number] [facility] 2021-11-15 21:10:00 2021-11-15 22:48:00 Emergency X DEANOTTOMIN [facility] E[facility] [id number] [facility] 2021-11-15 21:10:00 2021-11-15 22:48:00 Emergency BehDashawn gudinoram A [facility] 1.2.840.114 350.1.13.10 4.2.7.2.686 [id number] [id number] [facility] 2021-11-13 15:52:00 2021-11-13 17:06:00 Emergency X ALLI LUXY [facility] ERT [id number] [facility] 2021-11-13 15:52:00 2021-11-13 17:06:00 Emergency Aristides Lux B [facility] 12.840.114 350.1.13.10 4.2.7.2.686 [id number] [id number] [facility] 2021-11-13 08:30:00 2021-11-13 08:49:14 Outpatient R SUKI BERMUDEZ [facility] [id number] [facility] 2021-11-13 08:30:00 2021-11-13 08:49:14 [facility] 1.2.840.114 350.1.13.10 4.2.7.2.686 [id number] 044 [id number] [facility] 2021-11-13 08:30:00 2021-11-13 08:49:14 Outpatient R SUKI BERMUDEZ [facility] [id number] [facility] 2021-11-13 00:00:00 2021-11-13 00:00:00 Telephone Osmany Newton [facility] CESAR?[facility] BUILD[facility] 1.20.114 350.1.13.10 4.2.7.2.686 [id number] 044 [id number] [facility] 2021-11-10 00:00:00 2021-11-10 00:00:00 Telephone Osmany Newton [facility] BUILD[facility] 1.0.114 350.1.13.10 4.2.7.2.686 [id number] 044 [id number] [facility] 2021-11-07 18:40:00 2021-11-07 21:50:00 Emergency X LEIF ANNE [facility] [id number] [facility] 2021-11-07 18:40:00 2021-11-07 21:50:00 Emergency Leif Anne [facility] 1.0.114 350.1.13.10 4.2.7.2.686 [id number] [facility] 2021-10-29 13:00:00 2021-10-29 16:48:57 Outpatient R CHERI SIMMS YU [facility] [id number] [facility] 2021-10-29 13:00:00 2021-10-29 16:48:57 Office Visit Cheri Simms [facility] MED[facility] OFF[facility] BUILDING 1.20.114 350.1.13.10 4.2.7.2.686 [id number] [facility] 2021-10-20 00:00:00 2021-10-20 00:00:00 Refill Jenny Denton [facility] OFF[facility] BUILDING 1.2840.114 350.1.13.10 4.2.7.2.686 [id number] 044 [id number] [facility] 2021-10-09 13:45:00 2021-10-09 14:00:00 Office Visit Osmany Newton [facility] MEDICAL OFFICE BUILDING 1..840.114 350.1.13.10 4.2.7.2.686 [id number] 044 [id number] [facility] 2021-10-09 13:45:00 2021-10-09 13:45:00 Outpatient Hai NE[place]ON OSMANY [facility] [id number] [facility] 2021-10-09 13:45:00 2021-10-09 13:45:00 Outpatient Hai [place] OSMANY [facility] [id number] [facility] 2021-10-07 09:00:00 2021-10-07 09:00:00 Outpatient OSMANY MARCOS [facility] [id number] [facility] 2021-09-29 00:00:00 2021-09-29 00:00:00 Telephone Jenny Denton [facility] OFF[facility] BUILDING 1..840.114 350.1.13.10 4.2.7.2.686 [id number] 044 [id number] [facility] 2021-09-22 00:00:00 2021-09-22 00:00:00 Refill Aman Osmany [facility] BUILDING 1..840.114 350.1.13.10 4.2.7.2.686 [id number] 044 [id number] [facility] 2021-09-13 00:00:00 2021-09-13 00:00:00 Orders Only Doctor Unassigned, [place] [facility] 1..840.114 350.1.13.10 4.2.7.2.686 [id number] [id number] [facility] 2021-08-14 00:00:00 2021-08-14 00:00:00 Telephone Eug[facility] 1.84.114 350.1.13.10 4.2.7.2.686 [id number] 220 [id number] [facility] 2021-07-25 13:42:00 2021-07-25 23:59:00 [facility] 1.84.114 350.1.13.10 4.2.7.2.686 [id number] [facility] 2021-07-25 00:00:00 2021-07-25 23:59:00 Outpatient R ZAHIDA DUBON [facility] ACO [id number] [facility] 2021-07-23 09:15:00 2021-07-23 09:15:00 Out[facility] [id number] [facility] 2021-07-22 14:00:00 2021-07-22 14:54:48 Outpatient R [facility] [id number] [facility] 2021-07-22 14:00:00 2021-07-22 14:54:48 Office Visit [facility] BUILDING 1..840.114 350.1.13.10 4.2.7.2.686 [id number] [facility] 2021-07-16 13:00:00 2021-07-16 13:16:39 Outpatient R JENNY DENTON [facility] [id number] [facility] 2021-04-30 09:30:00 2021-04-30 09:45:00 Office Visit Osmany Newton [facility] MED[facility] OFF[facility] BUILDING 1..840.114 350.1.13.10 4.2.7.2.686 [id number] [id number] [facility] 2021-04-30 09:30:00 2021-04-30 09:41:44 Outpatient R [place], OSMANY [facility] [id number] [facility] 2021-04-30 09:30:00 2021-04-30 09:30:00 Outpatient Hai [place] OSMANY [facility] [id number] [facility] 2021-04-29 00:00:00 2021-04-29 00:00:00 [facility] [place] [facility] 1.114 350.1.13.10 4.2.7.2.686 [id number] [facility] 2021-04-22 08:45:00 2021-04-22 08:45:00 Outpatient Hai [place] OSMANY [facility] [id number] [facility] 2021-04-22 00:00:00 2021-04-22 00:00:00 Refill Ceci, [facility] OFFICE BUILDING ONE 1.114 350.1.13.10 4.2.7.2.686 [id number] 044 [id number] [facility] 2021-04-15 00:00:00 2021-04-15 00:00:00 Refill Aman [facility] CESAR?VIKY PANDYA MEDICAL OFFICE BUILDING 1.114 350.1.13.10 4.2.7.2.686 [id number] 044 [id number] [facility] 2021-04-10 00:00:00 2021-04-10 00:00:00 Refill Ceci [facility] OFFICE BUILDING ONE .114 350.1.13.10 4.2.7.2.686 [id number] 044 [id number] [facility] 2021-04-04 00:00:00 2021-04-04 00:00:00 Refill Pooja [facility] 1.2.840.114 350.1.13.10 4.2.7.2.686 [id number] [facility] 2021-01-27 11:30:00 2021-01-27 11:30:00 Outpatient R POOJA [facility] [id number] [facility] 2021-01-27 08:17:32 2021-01-27 08:32:32 Saw Handle Assembler Visit Pob, Adc Lab Main Pooja [facility] nal Building 1..114 350.1.13.10 4.2.7.2.686 [id number] [facility] 2021-01-27 00:00:00 2021-01-27 00:00:00 Orders Only Doctor Unassigned, [place] [facility] 1.840.114 350.1.13.10 4.2.7.2.686 [id number] [id number] [facility] 2021-01-24 00:00:00 2021-01-24 00:00:00 Telephone Pooja [facility] Cesar?Viky pandya Medical Office Building 1..114 350.1.13.10 4.2.7.2.686 [id number] [facility] 2021-01-13 00:00:00 2021-01-13 00:00:00 [facility] 1..114 350.1.13.10 4.2.7.2.686 [id number] 044 [id number] [facility] 2021-01-13 00:00:00 2021-01-13 00:00:00 Refill [facility] Office Building One 1..114 350.1.13.10 4.2.7.2.686 [id number] 044 [id number] [facility] 2020-11-26 09:00:00 2020-11-26 09:00:00 Outpatient R GLORY TIRADO [facility] [id number] [facility] 2020-11-14 09:00:00 2020-11-14 09:00:00 Outpatient R CLEMENT RIDER [facility] [id number] [facility] 2020-11-07 13:00:00 2020-11-07 13:49:41 Outpatient R RERESUE KANG [facility] [id number] [facility] 2020-10-18 10:15:00 2020-10-18 10:15:00 Outpatient R HIEU PATTON [facility] [id number] [facility] 2020-10-15 15:30:00 2020-10-15 15:30:00 Outpatient CAROLINE JENSEN [facility] [id number] [facility] 2020-08-03 10:45:00 2020-08-03 10:45:00 Outpatient [facility] [id number] [facility] 2020-07-16 14:30:00 2020-07-16 14:30:00 Outpatient Hai BENAVIDEZ CAROLINE [facility] [id number] [facility] Results Test Description Test Time Test Comments Results Result Co mments Source [facility] Hemoglobin A1C [id number] 15:10:00* Test Item Value Reference Range Interpretation Comme [facility] POCT HBA1C (test code = 4548-4) 8.8 % 4-6 A Lab Interpretation (test cod e = 20339-5) Abnormal [facility] HEMOGLOBIN A1C [id number] 16:05:00* Test Item Value Reference Range Interpretation Comme [facility] POCT HBA1C (test code = 4548-4) 9.0 % 4-6 A Lab Interpretation (test cod e = 47591-4) Abnormal [facility] HEMOGLOBIN A1C [id number] 16:05:00* Test Item Value Reference Range Interpretation Comme [facility] POCT HBA1C (test code = 4548-4) 9.0 % 4-6 A Lab Interpretation (test cod e = 99595-0) Abnormal [facility] GLUCOSE (AUTOMATED)2022-08-02 02:22:51* Test Item Value Reference Range Interpretation Comme nts POCT GLU (test code = 9276260729) 337 mg/dL 70-110 H Lab Interpretation (test cod e = 29107-6) Abnormal [facility] GLUCOSE(AGE >30DAYS)2022-08-02 02:19:00* Test Item Value Reference Range Interpretation Comme nts POCT Glu (age>30days) (test code = 3342) 337 mg/dL 70-110 A Lab Interpretation (test cod e = 87113-6) Abnormal [facility] GLUCOSE (AUTOMATED)2022-08-02 00:40:52* Test Item Value Reference Range Interpretation Comme nts POCT GLU (test code = 4781713359) 472 mg/dL 70-110 HH Lab Interpretation (test cod e = 34610-6) Abnormal [facility]. METABOLIC PANEL (13694)2022-08-02 00:19:47* Test Item Value Reference Range Interpretation Comme nts NA (test code = 8586250459) 134 mmol/L 135-145 L K (test code = 1881245040) 3.9 mmol/L 3.5-5.0 CL (test code = 2127169222) 95 mmol/L 98-108 L CO2 TOTAL (test code = 4132790147) 28 mmol/L 23-31 AGAP (test code = 2688207963) 11 2-16 BUN (test code = 8202690291) 14 mg/dL 7-23 GLUCOSE (test code = 2827872635) 550 mg/dL 70-110 HH CREATININE (test code = 0512574387) 0.67 mg/dL 0.60-1.25 TOTAL BILI (test code = 9432505152) 0.7 mg/dL 0.1-1.1 CALCIUM (test code = 9715616639) 9.4 mg/dL 8.6-10.6 T PROTEIN (test code = 2214566396) 7.0 g/dL 6.3-8.2 ALBUMIN (test code = 2349678545) 4.2 g/dL 3.5-5.0 ALK PHOS (test code = 0805999644) 89 U/L 34-122 ALTv (test code = 1742-6) 20 U/L 5-50 AST(SGOT) (test code = 6651616023) 20 U/L 13-40 eGFR (test code = 3714401167) 120.2 mL/min/1.73m2 BONILLA (test code = BONILLA) Association of [...] or abnormalities in imaging tests). Lab Interpretation (test code = 57370-7) [facility] [id number] 00:14:31* Test Item Value Reference Range Interpretation Comme nts TROPONIN I (test code = 8714518541) 0.005 ng/mL <=0.034 BONILLA (test code = BONILLA) Reference (Normal) [...] to patient's use of biotin. Lab Interpretation (test code = 16808-3) Normal [facility]-19 00:03:11* Test Item Value Reference Range Interpretation Comme nts MAGNESIUM (test code = 5867065186) 1.6 mg/dL 1.7-2.4 L Lab Interpretation (test cod e = 94737-9) Abnormal [facility] WITH [id number] 23:49:51* Test Item Value Reference Range Interpretation Comme nts WBC (test code = 6690-2) 8.07 See_Comment [[email or web address]] The system which generated this result transmitted reference range: 4.20 - 10.70 10*3/?L. The reference range was not used to interpret this result as normal/abnormal. RBC (test code = 789-8) 5.49 See_Comment [[email or web address]] The system which generated this result transmitted reference range: 4.26 - 5.52 10*6/?L. The reference range was not used to interpret this result as normal/abnormal. HGB (test code = 718-7) 16.9 g/dL 12.2-16.4 H HCT (test code = 4544-3) 48.4 % 38.4-49.3 MCV (test code = 787-2) 88.2 fL 81.7-95.6 MCH (test code = 785-6) 30.8 pg 26.1-32.7 MCHC (test code = 786-4) 34.9 g/dL 31.2-35.0 RDW-SD (test code = 57323-6) 41.2 fL 38.5-51.6 RDW-CV (test code = 788-0) 12.7 % 12.1-15.4 PLT (test code = 777-3) 205 See_Comment [Automated messa ge] The system which generated this result transmitted reference range: 150 - 328 10*3/?L. The reference range was not used to interpret this result as normal/abnormal. MPV (test code = 51518-2) 9.0 fL 9.8-13.0 L NRBC/100 WBC (test code = 8488730366) 0.0 See_Comment [Automated [employer] ssage] The system which generated this result transmitted reference range: 0.0 - 10.0 /100 WBCs. The reference range was not used to interpret this result as normal/abnormal. NRBC x10^3 (test code = 9141273947) See_Comment [Automated messa ge] The system which generated this result transmitted reference range: 10*3/?L. The reference range was not used to interpret this result as normal/abnormal. GRAN MAT (NEUT) % (test code = 770-8) 49.6 % IMM GRAN % (test code = 1549689977) 0.20 % LYMPH % (test code = 736-9) 41.8 % MONO % (test code = 5905-5) 5.7 % EOS % (test code = 713-8) 2.1 % BASO % (test code = 706-2) 0.6 % GRAN MAT x10^3(ANC) (test code = 1225413858) 4.00 10*3/uL 1.99-6.95 IMM GRAN x10^3 (test code = 8371244253) 0.00-0.06 LYMPH x10^3 (test code = 731-0) 3.37 10*3/uL 1.09-3.23 H MONO x10^3 (test code = 742-7) 0.46 10*3/uL 0.36-1.02 EOS x10^3 (test code = 711-2) 0.17 10*3/uL 0.06-0.53 BASO x10^3 (test code = 704-7) 0.05 10*3/uL 0.01-0.09 Lab Interpretation (test code = 29284-8) Abnormal [facility] HEMOGLOBIN A1C [id number] 16:48:00* Test Item Value Reference Range Interpretation Comme nts POCT HBA1C (test code = 4548-4) 12.9 % 4-6 A Lab Interpretation (test cod e = 50351-7) Abnormal [facility] HEMOGLOBIN A1C [id number] 16:48:00* Test Item Value Reference Range Interpretation Comme [facility] POCT HBA1C (test code = 4548-4) 12.9 % 4-6 A Lab Interpretation (test cod e = 29228-6) Abnormal [facility] HEMOGLOBIN A1C [id number] 16:48:00* Test Item Value Reference Range Interpretation Comme [facility] POCT HBA1C (test code = 4548-4) 12.9 % 4-6 A Lab Interpretation (test cod e = 52201-4) Abnormal [facility] HEMOGLOBIN A1C [id number] 20:45:00* Test Item Value Reference Range Interpretation Comme [facility] POCT HBA1C (test code = 4548-4) 11.7 % 4-6 A Lab Interpretation (test cod e = 16780-4) Abnormal [facility] [place] Notes Date/Time Note Provider Source 2023-07-30 11:00:00 V4ZKeYCk3xAZclmeMOsIZZLfAhoetvFe8yX QaWD6Y/Wolf+1a0uqdD8D5663e9B1R0869-0 1:00:00 Images from the original note were not included.Venipuncture collection performed by clean technique on the left anticubitus. Total of 1 attempts were made. Slight pressure and a bandage/dressing were applied to the site(s). The patient experienced no complications. The following specimens were processed according to instructions and sent to [facility] laboratories per lab order on TODAY:LT BLUESSTREDLAVPPTLTGREEN (LiHep) 1DK GREEN (SodH)GRAYDK BLUE (K2)DK BLUE (S)ACDBlood CultureNIPT/NTDPatient has been identified by name and was provided with cup, antiseptic towelette, and clean catch instructions. 1 urine specimen(s) sent.UnpreservedUrine CultureAptima tubeOther urine microalbumin 24530-6Xahrg McgvSO8668-20-57O02:34:14Nurse NoteTXT1.2.840.293608.1.13.104.2.7. 2.074782|[id number] for patient ddii54118-3Utmkm NoteLNNARRATIVEFormatted C-CDA narrative textUT[address] Eb[id number] 8ESPVKIINSIHUEQHWIJENTU5541-53-56G4 1:34:141.2.840.564176.1.72.3.15|1.2 .840.295732.1.13.104.2.7.2.727879_2 [id number] [facility] 2023-07-30 07:32:33 aJSahPvSINhl9JaGH/LOG6X8lppaN8CXRBa VFLDzVcmUkoYbmttxekIuFqTyZaCm4082-8 07-29T07:32:33 Last Refilled:AMLODIPINE 10 mg tablet 30 tablet 0 06/21/2023 -- NoSig: TAKE 1 TABLET BY MOUTH EVERY MORNINGSent to pharmacy as: amLODIPine 10 mg tablet (NORVASC)Class: eRXRoute: OralOrder: [id number]/Time Signed: 06/21/2023 10:16E-Prescribing Status: Receipt confirmed by pharmacy (06/21/2023 10:16 AM FORMULA BOTTLER)ATORVASTATIN 40 mg tablet 30 tablet 0 06/21/2023 -- NoSig: TAKE 1 TABLET BY MOUTH AT BEDTIMESent to pharmacy as: atorvastatin 40 mg tablet (LIPITOR)Class: eRXRoute: OralOrder: [id number]/Time Signed: 06/21/2023 10:16E-Prescribing Status: Receipt confirmed by pharmacy (06/21/2023 10:16 AM FORMULA BOTTLER)Recent VisitsDate Type Provider Dept1 Office Visit Osmany Newton MD [facility]11/26/22 Office Visit Osmany Newton MD [facility]10/05/22 Office Visit Osmany Newton MD [facility]09/09/22 Office Visit Osmany Newton MD [facility] Med07/16/22 Office Visit Osmany Newton MD [facility] Med04/23/22 Office Visit Osmany Newton MD [facility] MedShowing recent visits within past 540 days with a meds authorizing provider and meeting all other requirementsFuture AppointmentsNo visits were found meeting these conditions.Showing future appointments within next 150 days with a meds authorizing provider and meeting all other requirements 45473-3Ygxmtcbvr encounter SnglUP6386-97-41P03:34:13Telephone encounter NoteTXT1.2.840.236862.1.13.104.2.7. 2.405841|[id number] for patient kdib97292-6JijfQXZUIPRXSGMNyxxmiaob C-CDA narrative [id number] [address] Hk[id number] 5LJEEGQJUSCUQMHDKRWCHFG7871-28-26B8 7:34:131.2.840.366108.1.72.3.15|1.2 .840.964962.1.13.104.2.7.2.727879_2 [id number] Ronna Matthews [facility] 2023-06-30 09:41:15 TCaz4TIqxjonZnaTmtqE+622lPRiIGbpXlC nT9+O5ePlLH0JhPVhRCcgB+N2Vsbt8010-3 09:41:15 Attempted to contact patient in regards to prescription. No answer at this time. Voicemail left. 96728-2Xphswhawd encounter OdrjTA3285-32-77S93:41:27Telephone encounter NoteTXT1.2.840.406264.1.13.104.2.7. 2.522393|[id number] for patient noay59558-6NagcCIDFISGXHTRBcjdwfkjn C-CDA narrative mdss785910311Ajltwpk Gutierrez [id number] 1MBIXACERKDCTGURKDSMTTM7920-78-15H6 9:41:271.2.840.789041.1.72.3.15|1.2 .840.844199.1.13.104.2.7.2.727879_2 [id number] Holly Loza RN [facility] 2023-06-30 09:40:39 rx6Lm4AjPboHQ/TVfC9YLyKT88XDXHsbCHT jGoCmgI9MhgioKmykp5W4oVJPD87Y2366-5 09:40:39 Attempted to contact patient. No answer at this time. Voicemail left. 78630-4Fspxrnbwy encounter TwjhLN8321-32-25I33:40:56Telephone encounter NoteTXT1.2.840.682414.1.13.104.2.7. 2.510546|[id number] for patient tvql47816-9BcguBXUQRIBCVARVxjjvxoju C-CDA narrative fnwk719703428Eqoctbf Gutierrez [id number] 9JBHLIEBOBKPXIUTGXYMRRV4320-35-12C5 9:40:561.2.840.224371.1.72.3.15|1.2 .840.482992.1.13.104.2.7.2.727879_2 [id number] Holly Loza RN [facility] 2023-06-28 09:00:21 1hwWww/cNSM+/0z8UlwGxgru/2LBc6uQR3H LdkfDPnj0rQJmR4InI2R6XuGpf+XG6297-2 09:00:21 Awesome! Thanks Joycelyn!Holly could you let him know I sent his Novolog to the [facility] pharmacy. They should be reach out to him to let him know when he can expect his medication to be mailed to him.If he has any questions, he can call them at :Telephone [phone],RitaElectroni octavio signed by Nichole Wade AGPCNP at 06/28/2023 9:04 AM XTR67196-1Cnjwonqxd encounter CxlgTF7513-50-60O19:04:53Telephone encounter NoteTXT1.2.840.710108.1.13.104.2.7. 2.437844|[id number] for patient rqwv67524-4VgspFFEOMGFHTZZBncyuvcqb C-CDA narrative textUT[address] OcyqHryjkxnfyJrnjebhuxRMEE147418873 4ZDCISHRKTEYNRSVLYOAIRQ0444-02-19A6 9:04:531.2.840.691762.1.72.3.15|1.2 .840.278272.1.13.104.2.7.2.727879_2 [id number] [facility] 2023-06-28 08:48:11 rJbEvZKDgYwwFX/U7VuT0Twn7gGS4adHzr6 QcSF39M7R/NM14OpgorDuseSRvvc71763-3 08:48:11 Good morning!When I run his Novolog, his insurance is covering it at $30 for one month 36469-9Yibpxkhmk encounter QfsbMP7343-14-09L30:49:01Telephone encounter NoteTXT1.2.840.251488.1.13.104.2.7. 2.501660|[id number] for patient knxd89053-4FofhXRXFFRSTJYNDffvkszdy C-CDA narrative nzon408538646Xyiabw [address] KdvwRwnogvsfoIryijbtfvXSTB029765099 6ENZTARVQRSHZBFPYOEYOWX3173-90-19Y2 8:49:011.2.840.050235.1.72.3.15|1.2 .840.583305.1.13.104.2.7.2.727879_2 [id number] [facility] 2023-06-28 08:38:01 S9/bYxo22UVRs7qnFeFZIHrvbzv7j2EQYG9 fdTFysqI6SmRpNSA2NCdcXG2YCDEi5045-5 08:38:01 There was an existing order placed by Dr. Newton in 07/2022. Will resend to [facility] tp see if there is anything our pharmacy can do to bring down the saravia since this medication in not on formulary. 14626-1Rjksfktxr encounter YjqfOA5191-84-55T33:41:28Telephone encounter NoteTXT1.2.840.262632.1.13.104.2.7. 2.565694|[id number] for patient hrez50552-6XqalNNZMNEXPONBYpepreszp C-CDA narrative [address] VcpuAitvcvvthWbmlqyrtgEFQY099505383 6RGLGUFPDUPPXBZUBHMIILD9968-81-62W6 8:41:281.2.840.217110.1.72.3.15|1.2 .840.073753.1.13.104.2.7.2.727879_2 [id number] [facility] 2023-06-28 08:27:53 k8Ghu8qrE6e1oGQHPT6TunuRB0xfs3dpI7C gBvdvUScXeOi87Be7bQP+YogQG6ZW5059-0 08:27:53 Per last office visit (04/02/2023):Plan:-- START Novolog 10 Units under the skin in the morning with breakfast and 10 Units at noon at lunch and 10 Units in the evening with dinner daily.-- INCREASE Basalgar to 23 units daily.-- Continue Ozempic 1 mg weekly injection until you finish your supply. When you finish, start the Ozempic 2 mg weekly injection.-- Continue Metformin 500 mg X 2 with breakfast and dinnerNo prescription for Novolog on file. Routing to provider for review, will contact patient once confirmation is received. 65298-9Kxmefbkfh encounter OiaoQA9950-33-89Q80:30:24Telephone encounter NoteTXT1.2.840.712146.1.13.104.2.7. 2.884947|[id number] for patient svgs96010-4LwimAZMTHPXLBDNYdtbnhfsh C-CDA narrative tvkk864404321Vpdtvis Gutierrez RN[address] TxjoBgkrgbylmHsxceaqrxNJCR429114487 7SVAFHRRHPYVFTWJFGGJTGI6519-32-32F2 8:30:241.2.840.136486.1.72.3.15|1.2 .840.437878.1.13.104.2.7.2.727879_2 [id number] Holly Loza RN [facility] 2023-06-24 16:39:00 Bo72HKAK4EtCFaE/b/n+VXgZaamBht/PRwh alJNbM0ThVACEOoMsBahR3IVy52iZ5952-8 2-08T16:39:00 Regarding: Pt out of novolog critical med.----- Message from Nani Chirinos sent at 06/24/2023 4:38 PM FORMULA BOTTLER -----Pt is out of Novolog. Please advise.[facility] [id number] [address] Celgrdtdkzhwce signed by Susu Ferreira RN at 06/24/2023 4:39 PM YYW29712-7Igvmatbej encounter NszhKO6196-27-84Z53:39:26Telephone encounter NoteTXT1.2.840.450453.1.13.104.2.7. 2.613923|[id number] for patient cpdv65865-6EpdjTJZPYHXXTRHCzchsskxq C-CDA narrative espm787278483BsxvuSusu Ferreira RNUT[address] LsizNeookbqdaHmzcbpacdWGXT634571546 3JPBZJPLICYHKMTDMDEXVVQ9795-31-71K1 6:39:261.2.840.813176.1.72.3.15|1.2 .840.153845.1.13.104.2.7.2.727879_2 [id number] Susu Ferreira RN [facility] 2023-06-24 16:39:00 i8ytXSHO6ymkHdRObTMwvV6pnfoNVsQtL7X IIy/iXN63gloJCi8odJYjyRBJNxlr5874-6 6:39:00 Carter Hodge is a 62 year old malePatient and EC are calling for refill of Novolog. This medication has not been prescribed , and patient needs clarification regarding what medications he is supposed to be taking. They are aware of instructions below, but does not have a prescription for Novolog, and is out. Informed that clinic will need to clarify what medications he should be taking, and I will forward encounter to endo clinic for review.Susu Ferreira RN[facility] NursePlan:-- START Novolog 10 Units under the skin in the morning with breakfast and 10 Units at noon at lunch and 10 Units in the evening with dinner daily.-- INCREASE Basalgar to 23 units daily.-- Continue Ozempic 1 mg weekly injection until you finish your supply. When you finish, start the Ozempic 2 mg weekly injection.-- Continue Metformin 500 mg X 2 with breakfast and dinner.-- BG monitoring: continue glucose monitoring at least once daily and bring meter or log on next visit.-- Counseled patient on low carb diet and meds compliance-- Educated patient on hypoglycemia precautions and managementReason for Disposition[1] Caller has NON-URGENT medication question about med that PCP prescribed AND [2] triager unable to answer questionProtocols used: Medication Question Nivk-LXGMJ-IEOyyqprvslgcndu signed by Susu Ferreira RN at 06/24/2023 5:04 PM THN09855-3Yebvsfjgu encounter LedfRG7637-52-00R58:04:08Telephone encounter NoteTXT1.2.840.731825.1.13.104.2.7. 2.088472|[id number] for patient lnjo34261-6WbqjVCGKZGEVJLHPblsngwbt C-CDA narrative textUT[address] QjqfIdcb[id number] 0PKIPUSSMAQUVBHUPSVRRXR9688-80-43B7 7:04:081.2.840.144519.1.72.3.15|1.2 .840.969008.1.13.104.2.7.2.727879_2 [id number] [facility] 2023-06-18 15:11:04 L4kfBRRZ6bR2H35dtSx7e42xMXekoorqjLN dA60q9/9hpp9y+BIuhBUC826OIMzl3931-1 06-18T15:11:04 Patient is out of novolog but has metformin, basaglar and ozempic as noted on the medication list. She is reporting he also has tresiba but is not sure where he got it from. He is taking everything but novolog. They are inquiring which medications he should be taking for sure. Please review and advise.Poonam Gerber LVN 06/18/2023 3:14 PM 50243-0Qtwmrxkdr encounter EeajHF5764-06-85B95:15:00Telephone encounter NoteTXT1.2.840.984580.1.13.104.2.7. 2.796965|6962100425IQYobnogheb for patient mhla18141-0HevqEVMFCYDDKMFYdcvzhakr C-CDA narrative ygws859693985Zanyrpj M Fisher [address] Punj[id number] 2QNSTORIJFDRFLJMAWUOKZG2701-47-33Z2 5:15:001.2.840.673068.1.72.3.15|1.2 .840.340339.1.13.104.2.7.2.727879_2 [id number] Poonam Gerber [facility] 2023-06-18 12:43:35 92m4NHZr5yabD/qpknCNUVD1w2hytqKH0/K 9YuaM+MSyS+SuAk2byJYrn8Wa0NqY0811-7 06-18T12:43:35 Carter Hodge is a 62 year old maleSpouse calling stating pt is needing (NEBIVOLOL 10 mg tablet) refilled, however pt does have (Trasiba Flex tough insulin 200mg ) wanting to know if pt can take this med for now.Wanting to speak w nursePlease advise 13418-3Kchnkssml encounter RjwdBJ9858-67-31F19:49:49Telephone encounter NoteTXT1.2.840.873197.1.13.104.2.7. 2.928131|[id number] for patient wabe36343-2BfsuUEOQUAWTIEWMtqdmxdee C-CDA narrative jxdj053440752Olffm [id number] 8YCTJFXLRCOCTCUYDFFBIVM3191-80-42W7 2:49:491.2.840.441140.1.72.3.15|1.2 .840.858976.1.13.104.2.7.2.727879_2 [id number] Zac [facility] 2023-05-24 13:49:36 Bw1g/FdD6cPb9IzvQEWQeZcQxgSUdjLeMTY 4WFL+qoaSA35E9tDAKN8qTUhD6BzS6546-6 3:49:36 VERONICA 04/02/23NOV 07/30/23Per VERONICA note:- Continue Fenofibrate 145 mg 62336-1Bqyjzdrje encounter MicsEJ6869-27-57V23:50:53Telephone encounter NoteTXT1.2.840.174296.1.13.104.2.7. 2.919661|[id number] for patient mcoj91165-3RycoDMGTABKFWAXYqkidzgdx C-CDA narrative rnaa930642009Fnsy D Jetton [id number] 2MRFYNSSRINJEYTKOTIYVHG8757-16-84T1 3:50:531.2.840.593272.1.72.3.15|1.2 .840.758350.1.13.104.2.7.2.727879_1 [id number] Sheila Dailey [employer] [facility] 2023-05-19 11:16:25 6s8ib6KEWdRJRUX7Upo6h+IX/XK0y90aU+C O6Rji+OiLmGkfa/nqAixzs9zus0VX3593-4 05-19T11:16:25 CLINICAL PHARMACY ENDOCRINOLOGY VISITCarter Hodge is a 62 year old male referred to PharmD clinic by Dr. Cheri Simms MD for medication management for type 2 diabetes.At last visit, patient was instructed to:START Novolog 10 units with mealsIncrease Basaglar to 23 units dailyContinue Ozempic 1mg till you finish your supply, then increase to 2mg weeklyContinue metformin 1000mg twice daily05/19/23: Unable to reach patient (x2) Left voicemail with callback number. Will try again tomorrow.05/20/23: Attempt #3 to reach patient. Unable to reach patient. Left voicemail with callback number. Will sign off due to multiple unsuccessful attempts to reach patient. Please re-consult if PharmD services are required in the future. Thank you.Future AppointmentsProvider Department Dept Phone07/30/2023 10:30 AM Nichole Wade AGPCNP [facility] [phone] Patel, PharmD, BCACPPharmacy Clinical Ndt Inspector- Endocrinology 48935-2Hnedgcvof encounter XujiEC4121-10-44F77:47:46Telephone encounter NoteTXT1.2.840.036819.1.13.104.2.7. 2.959872|[id number] for patient male01636-9MeadHITNWJPJQEVVskgybrbv C-CDA narrative wzkq934828882Ewcyvye A Patel [address] JyogKveicpisyPftnmcqyhGJKC425053835 9YFHVTSGTGKWTPCLWEIEXYR8344-57-52J9 8:47:461.2.840.245222.1.72.3.15|1.2 .840.746368.1.13.104.2.7.2.727879_1 [id number] Manuela Herr [facility] 2023-05-16 16:30:01 zf/kbCWU02TANqVeHQgSsY7Z35SLqy/BNkH e6+Vwhkg2VUjRz61eUa/9FKp8IJ5q5677-6 T16:30:01 VERONICA:04/02/2023NOV: 4Plan: -- Continue Fenofibrate 145 mgRefills sent to pharmacy. June Smith MA 05/16/2023 4:31 PM 42572-2Iovziixxe encounter MtnuLF9617-40-23M91:32:09Telephone encounter NoteTXT1.2.840.688234.1.13.104.2.7. 2.261224|6042099343OORlxszzvra for patient zbsm18162-2HtwkKCEKRXOTOYALiuzcfwam C-CDA narrative pxwe230673178Wdpzjmu Sanchez MA[address] CeksBzsnadsiwPqcvxmmfgDTBD164915229 8HZWXQXNGFSOMVSVTVYXCNH2370-22-76E7 6:32:091.2.840.144723.1.72.3.15|1.2 .840.788512.1.13.104.2.7.2.727879_1 [id number] June Smith MA [facility] 2023-01-19 09:30:18 2LfODNS/yGbPiAfBF6FzbKkLVye2GlGnDUm h1fqgt3eJCutgJ43mXSNAUaHfGZmJ0734-7 09:30:18 NOV: 03/03/23LOV: 11/18/22Rx good until 03/13/23 40001-3Yvqnwqpju encounter BrzcTO1621-04-08K16:31:06Telephone encounter NoteTXT1.2.840.326117.1.13.104.2.7. 2.212856|5515382322HGQfaxetodo for patient ohye83621-7SemwQFCUOPEFIR[address]vdGal[address]onGalvestonTXTX[address] 0PTXAYPJKBYLVNWGVHREKER3080-95-49W7 9:31:061.2.840.754777.1.72.3.15|1.2 .840.225653.1.13.104.2.7.2.727879_1 [id number] [facility] 2023-01-18 11:32:29 +erDFq+xdAgvlkV3khcm5p5PTyIElU7/7fE IJm0AlknIoJVopU/QOE3riFs327s07938-7 1:32:29 Last refill was Disp Refills Start End MAHI TAMSULOSIN 0.4 mg 24 hr capsule 30 capsule 4 06/08/2022 Recent VisitsDate Type Provider Dept 11/26/22 Office Visit Osmany Newton MD [facility] 10/05/22 Office Visit Osmany Newton MD [facility] 09/09/22 Office Visit Osmany Newton MD [facility] 07/16/22 Office Visit Osmany Newton MD [facility] 04/23/22 Office Visit Osmany Newton MD [facility] 11/13/21 Office Visit Suki Bermudez FNP [facility] 10/09/21 Office Visit Osmany Newton MD [facility] Showing recent visits within past 540 days with a meds authorizing provider and meeting all other requirementsFuture AppointmentsNo visits were found meeting these conditions.Showing future appointments within next 150 days with a meds authorizing provider and meeting all other requirementsThis Medication was prescribed by Caroline Quintanaectronically signed by Kailyn Moreno AL at 01/18/2023 11:34 AM XLB29928-7Cyfensohd encounter DbsrBC5518-21-93J00:34:10Telephone encounter NoteTXT1.2.840.524797.1.13.104.2.7. 2.912152|4465513749OBScugoxmsp for patient ntzd25114-0VsbzRO621999737Hstgiqg R Leon [address]Gal[address]onGalvestonTXTX[address] 8BGRRCADWTJDYSZPLVSTTGC7984-71-81T6 1:34:101.2.840.965042.1.72.3.15|1.2 .840.268899.1.13.104.2.7.2.727879_1 [id number] Kailyn Moreno MA [facility] 2023-01-11 10:34:56 7mviXqXujr5dgHwaGXNZb0BnM7VH5zYKxhO ZL/8PmZL5GB5nozBQurGFK8Bk1rA68370-0 01-11T10:34:56 NOV: 03/03/23LOV: 11/18/22Refill sent 04331-6Azlmllzqk encounter XhhyWA0090-04-63A77:35:36Telephone encounter NoteTXT1.2.840.014293.1.13.104.2.7. 2.400050|[id number] for patient thaa61563-7MrraRRPEXRJBUU[address]vdGal[address]onGalvestonTXTX775[address] 3TQBBKJEOTXCBMXURTSZDFM2783-68-99F1 0:35:361.2.840.133646.1.72.3.15|1.2 .840.342430.1.13.104.2.7.2.727879_1 [id number] [facility] 2023-01-08 12:04:43 ild5Y3UKkByVaeKsXiVBdYy6W+GL/JRNj9n KU+rWUOU4f3I+DJt9ms+/GlTPAkp28485-8 2:04:43 CLINICAL PHARMACY ENDOCRINOLOGY VISITDATE: 01/08/2023 Subjective: Carter Hodge is a 62 year old y/o male referred to PharmD clinic by Dr. Cheri Simms MD for medication management for type 2 diabetes. At last visit, patient was instructed to:Take Basaglar 15 units DAILYContinue metformin 1000mg twice dailyContinue Ozempic 1mg weekly Patient has not been checking his sugars lately. He has been taking his Basaglar 16 units daily since his last visit with PharmD. He continues to take Ozempic 1mg on and takes metformin 2000 mg once daily. He denies any GI side effects; also denies signs/symptoms of lows.-SOCIAL HISTORY-Tobacco: noneAlcohol: none Exercise: walks 3x a week (2 miles; 45 min) -DIET- 2 meals Bfast: eggs, sausage, toast, orange juice sometimes Lunch: noneSupper: cheeseburger, fries, every now and then: chicken fried steak, mashed potatoes, green beans, cornSnacks: once a week eats an apple Drinks/caffeine: water; occasionally unsweet tea1. DIABETES Patient reports a >20 year duration of Type 2 diabetes.Symptoms of hypoglycemia: [-] Dizziness [-] Fatigue [-] Sweating [-] Nervousness [-] Tachycardia Symptoms of hyperglycemia: [+] Polyuria-- on a catheter [-] Polydipsia [-] Polyphagia [-] Visual changesComplications of diabetes: Macrovascular: [-] NE [-] CABG/PCI/other re-vascularization procedure Microvascular [-] Retinopathy (last eye exam 2021) [+] Nephropathy [-] NeuropathyCurrent DM medication regimen:Ozempic 1mg weekly (on )Metformin 1000mg twice dailyPatient taking 2000 mg once dailyBasaglar 16 units once daily Med compliance [+] SMBG readings: none available Objective:Past Medical History: Diagnosis Date Diabetes mellitus Gout Hypertension Vitamin D deficiency 07/24/2021 Prior to Admission medications Medication Sig Start Date Authorizing Provider ergocalciferol, vitamin d2, 1,250 mcg (50,000 unit) capsule TAKE ONE CAPSULE BY MOUTH WEEKLY 11/26/22 Osmany Newton MD lisinopriL 40 mg tablet Take 1 tablet by mouth in the morning. 11/26/22 Osmany Newton MD fenofibrate 145 mg tablet Take 1 tablet by mouth in the morning. 11/18/22 Cheri Simms MD semaglutide (OZEMPIC) 1 mg/dose (4 mg/3 mL) PnIj inject 1 mg under the skin weekly. 11/18/22 Cheri Simms MD Insulin Glargine (BASAGLAR KWIKPEN U-100 INSULIN) 100 unit/mL (3 mL) injection inject 45 Units under the skin in the morning. 10/26/22 Osmany Newton MD fluorouraciL 5 % cream 08/07/22 Doctor Unassigned, [facility] Nitrofurantoin&Nit. Macrocryst 100 mg capsule 09/29/22 Doctor Unassigned, [facility] Vitamin B-12 100 mcg tablet Take 0.5 tablets by mouth in the morning. Doctor Unassigned, [facility] ALLOPURINOL 100 mg tablet TAKE TWO TABLETS BY MOUTH EVERY MORNING 09/17/22 Osmany Newton MD metformin ER 500 mg 24 hr tablet Take 2 tablets by mouth in the morning and 2 tablets in the evening. 09/09/22 Osmany Newton MD nebivoloL 10 mg tablet Take 1 tablet by mouth in the morning. 09/09/22 Osmany Newton MD amLODIPine 10 mg tablet Take 1 tablet by mouth in the morning. 07/16/22 Osmany Newton MD atorvastatin 40 mg tablet Take 1 tablet by mouth at bedtime. 07/16/22 Osmany Newton MD insulin aspart U-100 (NOVOLOG FLEXPEN U-100 INSULIN) 100 unit/mL (3 mL) injection inject 10 Units under the skin in the morning and 10 Units at noon and 10 Units in the evening. inject before meals. 07/16/22 Osmany Newton MD TAMSULOSIN 0.4 mg 24 hr capsule TAKE ONE CAPSULE BY MOUTH EVERY MORNING 06/08/22 Janie Padron FNP Insulin [place], Disposable, (TRENA PEN NEEDLE) 32 gauge x 5/32" Ndle USE THREE TIMES A DAY DIRECTED 01/14/21 Hieu Patton MD needles, insulin disposable (BD ULTRAFINE ORIG PEN NEEDLES MISC) Doctor Unassigned, [place] Allergies/ADR: No Known AllergiesRecent Labs 07/13/2310 HGBA1C -- 12.6* -- [id number] 12.9* -- 9.0* Assessment: 1. DIABETESPatient NOT controlled to goal A1c of 6-7.0% per ADA guidelinesPatient has not been checking his sugars but has agreed to start checking 1-2x day between now and his upcoming visit with Dr. Westonent is currently on moderate dose of Ozempic, max effective dose of metformin, and basal insulinPatient is tolerating Ozempic well Medication monitoring: [-] Metformin: eGFR <30mL/min [-] Semaglutide: pancreatitis, severe diabetic retinopathy, macular edemaPlan/Recommendations: Continue Basaglar 16 units dailyContinue metformin 1000mg twice dailyOK to take 2000 mg daily if tolerated Continue Ozempic 1mg weekly Start checking sugars dailyWill follow up in 1 month Future Appointments Provider Department Dept Phone 03/03/2023 11:30 AM Cheri Simms MD [facility] [phone] Time spent with patient/caregiver: 30 minutesManuela Herr PharmDPharmacy Clinical Ndt Inspector- Endocrinology [id number] encounter [id number]:31:59Telephone encounter [id number] for patient [id number] A Patel [address] [id number] 3:31:[id number]|1.2 [id number] Manuela Herr [facility] 2022-12-04 10:09:54 [id number] 12-04T10:09:54 CLINICAL PHARMACY ENDOCRINOLOGY VISIT- 12/04/22DATE: 12/04/22Subjective: Carter Hodge is a 61 year old y/o male referred to PharmD clinic by Dr. Cheri Simms MD for medication management for type 2 diabetes. At last visit, patient was instructed to:Increase Ozempic to 1mg weekly Continue metformin 1000mg twice dailyContinue Basaglar 15 units once daily Patient has not been checking his sugars lately. He has taken 2 doses of Ozempic 1mg so far and reports tolerating the higher dose well. He states that he has also been taking Basaglar once a week. Denies lows. -SOCIAL HISTORY-Tobacco: noneAlcohol: none Exercise: walks 3x a week (2 miles; 45 min) -DIET- 2 meals Bfast: eggs, sausage, toast, orange juice sometimes Lunch: noneSupper: cheeseburger, fries, every now and then: chicken fried steak, mashed potatoes, green beans, cornSnacks: once a week eats an apple Drinks/caffeine: water; occasionally unsweet tea1. DIABETES Patient reports a >20 year duration of Type 2 diabetes.Symptoms of hypoglycemia: [-] Dizziness [-] Fatigue [-] Sweating [-] Nervousness [-] Tachycardia Symptoms of hyperglycemia: [+] Polyuria-- on a catheter [-] Polydipsia [-] Polyphagia [-] Visual changesComplications of diabetes: Macrovascular: [-] NE [-] CABG/PCI/other re-vascularization procedure Microvascular [-] Retinopathy (last eye exam 2021) [+] Nephropathy [-] NeuropathyCurrent DM medication regimen:Ozempic 1mg weekly (on Mondays)Metformin 1000mg twice dailyBasaglar 15 units once daily Patient taking once a weekMed compliance [-] takes Basaglar once a week instead of daily; forgets metformin once a week SMBG readings: none available Objective:Past Medical History: Diagnosis Date Diabetes mellitus Gout Hypertension Vitamin D deficiency 07/24/2021 Home medications Medication Sig Start Date Authorizing Provider ergocalciferol, vitamin d2, 1,250 mcg (50,000 unit) capsule TAKE ONE CAPSULE BY MOUTH WEEKLY 11/26/22 Osmany Newton MD lisinopriL 40 mg tablet Take 1 tablet by mouth in the morning. 11/26/22 Osmany Newton MD fenofibrate 145 mg tablet Take 1 tablet by mouth in the morning. 11/18/22 Cheri Simms MD semaglutide (OZEMPIC) 1 mg/dose (4 mg/3 mL) PnIj inject 1 mg under the skin weekly. 11/18/22 hCeri Simms MD Insulin Glargine (BASAGLAR KWIKPEN U-100 INSULIN) 100 unit/mL (3 mL) injection inject 45 Units under the skin in the morning. 10/26/22 Osmany Newton MD fluorouraciL 5 % cream 08/07/22 Doctor Unassigned, [facility] Nitrofurantoin&Nit. Macrocryst 100 mg capsule 09/29/22 Doctor Unassigned, [facility] Vitamin B-12 100 mcg tablet Take 0.5 tablets by mouth in the morning. Doctor Unassigned, [facility] ALLOPURINOL 100 mg tablet TAKE TWO TABLETS BY MOUTH EVERY MORNING 09/17/22 Osmany Newton MD metformin ER 500 mg 24 hr tablet Take 2 tablets by mouth in the morning and 2 tablets in the evening. 09/09/22 Osmany Newton MD nebivoloL 10 mg tablet Take 1 tablet by mouth in the morning. 09/09/22 Osmany Newton MD amLODIPine 10 mg tablet Take 1 tablet by mouth in the morning. 07/16/22 Osmany Newton MD atorvastatin 40 mg tablet Take 1 tablet by mouth at bedtime. 07/16/22 Osmany Newton MD insulin aspart U-100 (NOVOLOG FLEXPEN U-100 INSULIN) 100 unit/mL (3 mL) injection inject 10 Units under the skin in the morning and 10 Units at noon and 10 Units in the evening. inject before meals. 07/16/22 Osmany Newton MD TAMSULOSIN 0.4 mg 24 hr capsule TAKE ONE CAPSULE BY MOUTH EVERY MORNING 06/08/22 Janie Padron FNP Insulin [place], Disposable, (TRENA PEN NEEDLE) 32 gauge x 5/32" Ndle USE THREE TIMES A DAY DIRECTED 01/14/21 Hieu Patton MD needles, insulin disposable (BD ULTRAFINE ORIG PEN NEEDLES MISC) Doctor Unassigned, [facility] Allergies/ADR: No Known AllergiesRecent Labs 07/13/2310 HGBA1C -- 12.6* -- VLQXHLV5D 12.9* -- 9.0* Assessment: 1. DIABETESPatient NOT controlled to goal A1c of 6-7.0% per ADA guidelinesPatient has not been checking his sugars but has agreed to start checking once dailyPatient is currently on moderate dose of Ozempic, max effective dose of metformin, and basal insulinPatient is tolerating Ozempic wellTaking basal insulin weekly instead of daily due to confusion but has agreed to take daily Medication monitoring: [-] Metformin: eGFR <30mL/min [-] Semaglutide: pancreatitis, severe diabetic retinopathy, macular edemaPlan/Recommendations: Take Basaglar 15 units DAILYContinue metformin 1000mg twice dailyContinue Ozempic 1mg weekly Start checking sugars dailyWill follow up in ~5-6 weeksTime spent with patient/caregiver: 30 minutesManuela Herr PharmDPharmacy Clinical Ndt Inspector- Endocrinology [id number] encounter [id number] encounter [id number] for patient [id number] A Patel [id number] Manuela Herr [facility]
--- NOTE | 2023-08-12 02:05 | ER ---
Nurse's Notes [facility] Name: Carter Hodge Age: 62 yrs Sex: Male : 1960 Arrival Date: 08/12/2023 Time: 01:41 Bed 2 Private MD: Diagnosis: Mechanical complication of urinary (indwelling) catheter;Encounter for Barrios Catheter Exchange Presentation: 08/11 01:53 Chief complaint: Patient states: Barrios catheter bag started leaking this evening. Pt cm10 states that he has had this catheter in place for almost 3 months. Coronavirus screen: Client denies travel out of the [place] in the last 14 days. At this time, the client does not indicate any symptoms associated with coronavirus-19. Ebola Screen: Patient denies travel to an Ebola-affected area in the 21 days before illness onset. No symptoms or risks identified at this time. Initial Sepsis Screen: Does the patient meet any 2 criteria? HR > 90 bpm. Does the patient have a suspected source of infection? No. Patient's initial sepsis screen is negative. Risk Assessment: Do you want to hurt yourself or someone else? Patient reports no desire to harm self or others. Onset of symptoms was August 12, 2023. 01:53 Method Of Arrival: Ambulatory cm10 01:53 Acuity: JABARI 3 cm10 Historical: - Allergies: 01:54 No Known Allergies; cm10 - PMHx: 01:54 BPH; diabetes mellitus; Hypertensive disorder; Hernia; cm10 - Immunization history:: Adult Immunizations up to date. - Social history:: Smoking status: Patient denies any tobacco usage or history of. - Family history:: not pertinent. Screenin:15 [facility] ED Fall Risk Assessment (Adult) History of falling in the last 3 months, jb4 including since admission No falls in past 3 months (0 pts) Confusion or Disorientation No (0 pts) Intoxicated or Sedated No (0 pts) Impaired Gait No (0 pts) Mobility Assist Device Used No (0 pt) Altered Elimination No (0 pt) Score/Fall Risk Level 0 - 2 = Low Risk Oriented to surroundings, Maintained a safe environment. Abuse screen: Denies threats or abuse. Nutritional screening: No deficits noted. Tuberculosis screening: No symptoms or risk factors identified. Assessment: 01:45 General: Appears in no apparent distress. comfortable, Behavior is calm, cooperative, jb4 appropriate for age. Pain: Denies pain. Neuro: Level of Consciousness is awake, alert, obeys commands, Oriented to person, place, time, situation. Cardiovascular: Patient's skin is warm and dry. Respiratory: Airway is patent Respiratory effort is even, unlabored, Respiratory pattern is regular, symmetrical. GI: No signs and/or symptoms were reported involving the gastrointestinal system. : No signs and/or symptoms were reported regarding the genitourinary system. EENT: No signs and/or symptoms were reported regarding the EENT system. Derm: Skin is intact, Skin is pink, warm \T\ dry. Musculoskeletal: Circulation, motion, and sensation intact. Range of motion: intact in all extremities. 02:15 Reassessment: Patient appears in no apparent distress at this time. Patient and/or jb4 family updated on plan of care and expected duration. Pain level reassessed. Patient is alert, oriented x 3, equal unlabored respirations, skin warm/dry/pink. Vital Signs: 01:53 BP 141 / 80; Pulse 94; Resp 18; Temp 97.7(O); Pulse Ox 98% on R/A; Weight 104.33 kg; cm10 Height 5 ft. 11 in. ; Pain 0/10; 02:15 BP 123 / 73; Pulse 88; Resp 16; Pulse Ox 98% on R/A; jb4 01:53 Body Mass Index 32.08 (104.33 kg, 180.34 cm) cm10 01:53 Pain Scale: Adult cm10 ED Course: 01:42 Patient arrived in ED. jj6 01:43 Sam Oliva MD is Attending Physician. sp4 01:53 Shiv Stewart RN is Primary Nurse. tm6 01:54 Triage completed. cm10 01:55 Arm band placed on Patient placed in an exam room, on a stretcher. cm10 02:02 South Barrera MD is Referral Physician. sp4 02:15 Patient has correct armband on for positive identification. Placed in gown. Bed in low jb4 position. Call light in reach. Side rails up X 1. Provided Education on: Discharge instructions. 02:15 No provider procedures requiring assistance completed. Barrios cath inserted, using jb4 sterile technique, other Inserted by ED physician. Patient did not have IV access during this emergency room visit. Administered Medications: No medications were administered Medication: 02:15 VIS not applicable for this client. jb4 Outcome: 02:05 Discharge ordered by . sp4 02:30 Discharged to home ambulatory, jb4 02:30 Condition: stable 02:30 Discharge instructions given to patient, Instructed on discharge instructions, follow up and referral plans. Demonstrated understanding of instructions, follow-up care, 02:52 Patient left the ED. jb4 Signatures: Lacho Tom RN RN jb4 Ann Ferguson6 Sam Oliva MD MD sp4 Tasha Bey, RN RN cm10 Shiv Stewart RN RN tm6
--- NOTE | 2023-08-12 02:05 | EDPHYS ---
Physician Documentation [facility] Name: Carter Hodge Age: 62 yrs Sex: Male : 1960 Arrival Date: 08/12/2023 Time: 01:41 Bed 2 Private MD: ED Physician Sam Oliva HPI: 08/11 01:43 This 62 yrs old Other Male presents to ER via Unassigned with complaints of Problem sp4 With Urinary Catheter. 02:27 Patient with past medical history of BPH, diabetes, large hernia, presents with leaking sp4 indwelling Barrios catheter. Patient requests Barrios catheter exchanged or leg bag exchange. Historical: - Allergies: 01:54 No Known Allergies; cm10 - PMHx: 01:54 BPH; diabetes mellitus; Hypertensive disorder; Hernia; cm10 - Immunization history:: Adult Immunizations up to date. - Social history:: Smoking status: Patient denies any tobacco usage or history of. - Family history:: not pertinent. ROS: 02:27 Constitutional: Negative for fever, chills, and weight loss, positive for Barrios sp4 catheter problem and leakage 02:27 All other systems are negative, Exam: 02:27 Constitutional: This is a well developed, well nourished patient who is awake, alert, sp4 and in no acute distress. Morbidly obese male, large abdominal hernia Head/Face: Normocephalic, atraumatic. Eyes: Pupils equal round and reactive to light, extra-ocular motions intact. Lids and lashes normal. Conjunctiva and sclera are not injected. Cornea within normal limits. Periorbital areas with no swelling, redness, or edema. ENT: Nares patent. No nasal discharge, no septal abnormalities noted. Tympanic membranes are normal and external auditory canals are clear. Oropharynx with no redness, swelling, or masses, exudates, or evidence of obstruction, uvula midline. Mucous membranes moist. Neck: Trachea midline, no thyromegaly or masses palpated, and no cervical lymphadenopathy. Supple, full range of motion without nuchal rigidity, or vertebral point tenderness. Chest/axilla: Normal chest wall appearance and motion. Nontender with no deformity. No lesions are appreciated. Cardiovascular: Regular rate and rhythm with a normal S1 and S2. No gallops, murmurs, or rubs. Normal PMI, no JVD. No pulse deficits. Respiratory: Lungs have equal breath sounds bilaterally, clear to auscultation and percussion. No rales, rhonchi or wheezes noted. No increased work of breathing, no retractions or nasal flaring. Abdomen/GI: Soft, with normal bowel sounds. Prior surgery multiple scars , also there is large left-sided abdominal hernia that is chronic appearing. Back: No spinal tenderness. No costovertebral tenderness. Male : Normal genitalia with no discharge or lesions. Indwelling Barrios Cath Skin: Warm, dry with normal turgor. Normal color with no rashes, no lesions, and no evidence of cellulitis. MS/ Extremity: Pulses equal, no cyanosis. Neurovascular intact. Full, normal range of motion. Neuro: Awake and alert, GCS 15, oriented to person, place, time, and situation. Cranial nerves II-XII grossly intact. Motor strength 5/5 in all extremities. Sensory grossly intact. Psych: Awake, alert, with orientation to person, place and time. Behavior, mood, and affect are within normal limits Vital Signs: 01:53 BP 141 / 80; Pulse 94; Resp 18; Temp 97.7(O); Pulse Ox 98% on R/A; Weight 104.33 kg; cm10 Height 5 ft. 11 in. ; Pain 0/10; 02:15 BP 123 / 73; Pulse 88; Resp 16; Pulse Ox 98% on R/A; jb4 01:53 Body Mass Index 32.08 (104.33 kg, 180.34 cm) cm10 01:53 Pain Scale: Adult cm10 Procedures: 02:27 Performed Barrios catheter exchanged by . Barrios catheter exchanged without sp4 complications 20-gauge Mongolian Barrios catheter placed without complications. . MDM: 02:01 Patient medically screened. sp4 02:27 Differential Diagnosis Barrios catheter complicated. . Data reviewed: vital signs, nurses sp4 notes. ED course: Catheter is draining well , patient stable for discharge home, new leg bag was provided. . 08/11 02:02 Order name: Barrios Leg Bag; Complete Time: 02:45 sp4 08/11 02:02 Order name: Barrios; Complete Time: 02:45 sp4 Administered Medications: No medications were administered Disposition Summary: 08/12/23 02:05 Discharge Ordered Notes: Location: Home sp4 Problem: new sp4 Symptoms: have improved sp4 Condition: Stable sp4 Diagnosis - Mechanical complication of urinary (indwelling) catheter sp4 - Encounter for Barrios Catheter Exchange sp4 Followup: sp4 - With: [place] Barrera MD - When: 7 - 10 days - Reason: Discharge Instructions: - Discharge Summary Sheet sp4 - Indwelling Urinary Catheter Care, Adult, [id number] sp4 Signatures: Sam Oliva MD MD sp4 Tasha Bey RN RN cm10
[2023-08-12 02:56] VITALS: TEMP 97.7; O2SAT 98
[2023-08-12 03:29] VITALS: BP 123/73
== END 2023-08-12 02:52 | disposition home or self-care (01) ==
LOC: ER 01:41
DX: T83.038A Leakage of other urinary catheter, initial encounter (principal)
CPT/HCPCS: 51702; 99284

== ENCOUNTER 2023-08-24 06:16 | Day surgery (SDC) | payer OTHER ==
--- NOTE | 2023-08-11 13:45 | RAD REPORT ---
EXAM DESCRIPTION: Steven Love (2 Views)08/11/2023 1:25 pm CLINICAL HISTORY: Preop for genitourinary surgery. Hypertension COMPARISON: None FINDINGS: The lungs appear clear of acute infiltrate. The heart is normal size IMPRESSION: No acute abnormalities displayed
[2023-08-11 14:10] LABS: Absolute Basophils 0.1 K/uL (0-0.5); Absolute Eosinophils 0.4 K/uL (0-0.5); Absolute Lymphocytes (CBC) 4.2 K/uL (0.7-4.9); Absolute Monocytes 0.5 K/uL (0.1-1.3); Absolute Neutrophil 5.2 K/uL (1.8-8.0); Basophils % 0.8 % (0-1.3); Eosinophils % 4.2 % (0-4.4); Hematocrit 46.7 % (39.6-49.0); Hemoglobin 16.3 g/dL (13.6-17.9); Lymphocytes % 40.5 % (15.3-44.8); MCH 30.5 pg (27.0-35.0); MCHC 34.9 g/dL (32.0-36.0); MCV 87.5 fL (80-100); MPV 7.5 fL (7.6-11.3); Monocytes % 4.3 % (3.3-12.3); Neutrophils % 50.2 % (41.7-73.7); Nucleated RBC Absolute Count 0.1 (0-0); Nucleated Red Blood Cells % 0.5 % (0-0); PT Prothrombin Time 10.9 SECONDS (9.5-12.5); Platelets 319 thou/uL (152-406); Protime INR 0.99; RBC Red Blood Cell Count 5.34 M/uL (4.33-5.43); Red Cell Distribution Width 13.6 % (12.1-15.2)
[2023-08-11 14:21] LABS: Anion Gap 9.3 mEq/L (5.0-15.0); Potassium 3.3 mEq/L (3.5-5.1)
--- NOTE | 2023-08-12 14:01 | EKG ---
Test Date: 2023-08-11 Test Time: 13:16:33 Yardage Control Operator Forming: COCO MEASUREMENT RESULTS: Intervals: Rate: 85 [place]: 182 QRSD: 80 QT: 350 QTc: 416 [place]: P: 58 [place]: 182 QRS: 26 T: 66 INTERPRETIVE STATEMENTS: Normal sinus rhythm Possible Left atrial enlargement Nonspecific T wave abnormality Abnormal ECG Compared to ECG 09/20/2022 11:48:28 No significant changes Electronically Signed On 08-12-23 13:59:39 CDT by Shawn Quintero
[2023-08-24] MEDS: NA CHLORIDE 0.9% 1,000 ML ONE (06:45)
[2023-08-24] MEDS ORDERED: SUCCINYLCHOLINE 20 MG/ML (10 ML) IV ONE (07:19)
[2023-08-24] MEDS ORDERED: SUGAMMADEX SODIUM 200 MG/2 ML VIAL IV ONE (07:19)
[2023-08-24] MEDS ORDERED: FENTANYL CITR 100 MCG/2 ML ONE (07:22)
[2023-08-24] MEDS ORDERED: ONDANSETRON 4 MG/2 ML VIAL ONE (07:22)
[2023-08-24] MEDS ORDERED: propofoL 200 MG/20 ML VIAL IV ONE (07:22)
[2023-08-24] MEDS ORDERED: dexAMETHasone 10 MG/ML VIAL ONE (07:39)
[2023-08-24] MEDS: CEFAZOLIN SODIUM 2 GM/VIAL ONE (07:41)
[2023-08-24] MEDS ORDERED: EPHEDRINE SULF 50 MG/ML VIAL ONE (07:42)
[2023-08-24] MEDS: Gentamicin Inj 160 MG in NA CHLORIDE 0.9% 100 ML IV ONE (07:45)
[2023-08-24] MEDS ORDERED: CODEINE 30MG/APAP 300MG TAB PO PRN (08:27)
[2023-08-24 08:52] VITALS: O2SAT 100
[2023-08-24] MEDS ORDERED: PHENAZOPYRIDINE 100MG TAB PO ONE (08:55)
[2023-08-24] MEDS: PHENAZOPYRIDINE 100MG TAB PO ONE (08:56)
[2023-08-24 11:14] VITALS: TEMP 97
[2023-08-24 14:02] VITALS: BP 122/62
--- NOTE | 2023-08-24 14:11 | OP ---
Surgeon: ROSARIO LUCAS Preoperative Diagnoses: 1.Benign prostatic hypertrophy with lower urinary tract obstruction. 2.Urinary retention. 3.Traumatic mid pendulous urethral hypospadias. Postoperative Diagnoses: 1.Benign prostatic hypertrophy with lower urinary tract obstruction. 2.Urinary retention. 3.Traumatic mid pendulous urethral hypospadias. Principal Procedure: Prostatic urethral lift/UroLift with 6 implants placed. Indication For Procedure: This is a 62-year-old gentleman who presented with urinary retention. He underwent evaluation which revealed the presence of weak detrusor with significant instability, and c ystoscopic evaluation revealed qkam-oy-wajendet lateral lobar hypertrophy without intravesical projec tion. As a result of the findings, I counseled the patient that any attempt to restore his ability t o void via surgical approach to his prostate may or may not be successful given the weakness of his b ladder contractility. That said, he had developed a traumatic hypospadias extending down into the mi d pendulous urethra associated with the chronic Barrios catheterization and likely difficulty managing it associated with a large left ventral hernia. As a result, something needed to be done, and the pa tient was either going to be committed to a suprapubic catheter placement for the rest of his life or he could have an attempt at restoring his ability to void. After consideration, he elected to proce ed with an attempt to relieve the obstruction and restore his ability to void and so we agreed to pro ceed via prostatic urethral lift. Procedure In Detail: The patient was consented in the preoperative holding area before being transfe rred to the operative suite where general anesthesia was induced. He was given ciprofloxacin orally to take starting 5 days prior to the procedure for catheter cultured urine results. He was additiona lly given Ancef 2 g and gentamicin 160 mg IV antimicrobial prophylaxis again targeting those culture results. Pneumo boots were provided for DVT prophylaxis. He was placed in the lithotomy position, p added and secured to the table appropriately. His genitalia were prepped with Hibiclens and he was d raped in standard fashion after the urethral Barrios catheter indwelling had been removed. The case wa s begun using the 20-Norwegian UroLift sheath with a visual obturator to traverse his hypospadiac urethr a via the prostatic urethra and into the bladder. The bladder was decompressed of fluid and urine an d refilled with sterile saline and surveyed in its entirety. While there was evidence of some mild c hronic cystitis, no papillary mucosal lesions, foreign bodies, or stones were noted throughout. The urine was largely clean in appearance. As a result, I irrigated his bladder to remove any floating d ebris within before switching the visual obturator for the first UroLift delivery device. With an im plant associated with that delivery device, I targeted the patient's left lateral wall at the bladder neck region. Placing the scope at a 15 degrees angle about 1.5 to 2 cm distal to the bladder neck o pening on the left, I targeted a position in the high lateral anterior portion of the prostate at nati roximately 1 o'clock before pulling the trigger once to deploy the needle through the substance of th e prostate to the capsular surface. I then advanced the needle by angling the scope an additional 15 degrees in order to ensure the needle tip was delivered outside the capsular surface, but also to co mpress the tissue. I then pulled the trigger a second time deploying the capsular tab and partially retracting the needle before pulling the trigger a third time further retracting the needle and tensi oning the suture. I then advanced the scope back toward the midline and 2 to 3 mm toward the bladder neck before pulling the trigger a fourth time delivering the urethral end piece which did situate ni riddhi with a nice rim of tissue distal to the opening of the bladder neck. As a result, I targeted wh at I thought was a similar position on the patient's right side, but after placement of that implant at the bladder neck region, a visual obturator survey revealed the implant was placed even more anter iorly in the prostate, but this was a beautiful outcome because it very nicely elevated the anterior lobe and channel. As a result, I placed 2 additional implants at the apical region of the prostate a t the location of the verumontanum, first on the patient's left and then on the right before surveyin g the channel again. There was some slight asymmetry largely emanating from the patient's right side at this point in the bladder neck region just proximal to where the high anterior bladder neck impla nt was placed; so I placed a fifth implant a bit closer to the bladder neck opening and more laterall y at around the 9 to 10 o'clock position. This did create a beautiful channel, but had exposed a sli ght degree of intraurethral bulging of tissue now coming from the patient's left side. As a result, I targeted that bulging tissue which was between the apical and the base implants and placed a sixth and final implant into that tissue nicely lateralizing it and creating a beautiful continuous anterio r channel visible with the bladder completely decompressed and no fluid inflow. There was minimal oo zing coming from the bladder neck implant on the right, but otherwise no significant bleeding. I lola s refilled his bladder with sterile saline before placing an 18-Norwegian urethral Barrios catheter with 1 5 cc of sterile water in the balloon. The catheter was connected to a leg bag and he was awakened fr om general anesthesia after being taken out of the lithotomy position. He was then transferred to a stretcher and then transferred to the recovery room in good condition. Complications: None. Discharge Disposition: He will be given a voiding trial in recovery, but if he is unable to void suc cessfully, a catheter will be reinserted, and we will plan another voiding trial likely on Wednesday. T his will be determined to occur either while he is still taking the preoperative antimicrobial or whe n he has only finished it by about 1 to 2 days. At that point, if he has finished the antimicrobials , we will give him a single dose at the time of that voiding trial attempt. If the patient is not porter ccessful at voiding at that point, a subsequent followup should be established with me to discuss pro ceeding with placement of a suprapubic catheter using ultrasound guidance because of his large left v entral hernia. We will try to expedite movement to that eventuality given the traumatic hypospadias. CALISTA/JUAN CL Voice ID: [id number] Report ID: [id number]
== END 2023-08-24 11:53 | disposition home or self-care (01) ==
LOC: OR 06:16
PROVIDERS: ATTEND Urology
PROC: 0T7D8DZ Dilation of Urethra with Intraluminal Device, Via Natural or Artificial Opening Endoscopic (ICD-10-PCS; principal; 2023-08-24 07:30)
DX: N40.1 Benign prostatic hyperplasia with lower urinary tract symptoms (principal); N13.8 Other obstructive and reflux uropathy; R33.9 Retention of urine, unspecified; Q54.9 Hypospadias, unspecified; E11.9 Type 2 diabetes mellitus without complications; I10 Essential (primary) hypertension; R41.82 Altered mental status, unspecified; E11.10 Type 2 diabetes mellitus with ketoacidosis without coma
CPT/HCPCS: 93005; 87088; 85025; 87086; 80048; 36415; 85610; 82947 ×2; 87077 ×2; 87186 ×2; 83036; 71046; 52441; 52442 ×5; J2704; J1580; J3010; J1100; J2405; J7030